=== PATIENT | male | born 1940 | race Caucasian/White ===

== ENCOUNTER 2018-07-02 07:34 | Day surgery (SDC) | payer OTHER, BC ==
[2018-07-01 15:25] VITALS: BMI 26.5
[2018-07-02 09:23] VITALS: TEMP 96.8
[2018-07-02 13:33] VITALS: BP 116/60; PULSE 64
--- NOTE | 2018-07-03 12:19 | PATH ---
Surgical Pathology Report Patient Name: RAYNA DE LA TORRE [facility]. Rec. #: [id number] /Age/Gender: 1940 (Age: 77) / M Account: [id number] Location: [facility]-ENDOSCOPY Taken: 07/02/2018 Received: 07/02/2018 Reported: 07/03/2018 Physicians: Gurpreet Eng M.D. Specimen(s) Received A: BODY B: IRREGULAR Z-LINE C: DISTAL SIGMOID D: MID SIGMOID Clinical History Iron deficiency anemia. Post-operative diagnosis: Irregular Z line, colon, polyps Final Diagnosis A. BODY, BIOPSY: GASTRIC MUCOSA WITH ACTIVE CHRONIC GASTRITIS. IMMUNOSTAIN FOR H. PYLORI IS POSITIVE. NEGATIVE FOR INTESTINAL METAPLASIA. B. IRREGULAR Z- LINE, BIOPSY: GASTROESOPHAGEAL JUNCTIONAL MUCOSA WITH REFLUX ESOPHAGITIS. NEGATIVE FOR INTESTINAL METAPLASIA. C. DISTAL SIGMOID POLYP, POLYPECTOMY: TUBULOVILLOUS ADENOMA. D. MID SIGMOID POLYP, POLYPECTOMY: TUBULOVILLOUS ADENOMA. Electronically Signed Adma Ernandez M.D. Gross Description A. Received in formalin, labeled "body erythema" are two pieces of light moon soft tissue each up to 0.3 cm in greatest dimension. Entirely submitted in one cassette. B. Received in formalin, labeled "irregular Z line" is one piece of light moon tissue measuring 0.6 cm in greatest dimension. Entirely submitted in one cassette. C. Received in formalin, labeled "polyp, distal sigmoid" is a 0.5 x 0.4 x 2.2 cm dark moon polyp. The resection margin is inked blue. The polyp is bisected and entirely submitted in one cassette. D. Received in formalin, labeled "polyp mid sigmoid" is a 1.2 x 0.8 x 0.4 cm brown moon polyp. The resection margin is inked blue. The polyp is bisected and entirely submitted in one cassette. AE/07/02/2018 ebram/07/02/2018
== END 2018-07-02 10:08 | disposition home or self-care (01) ==
LOC: JASU-ENDO 07:34
PROVIDERS: ATTEND Internal Medicine Gastroenterology
PROC: 0DB58ZX Excision of Esophagus, Via Natural or Artificial Opening Endoscopic, Diagnostic (ICD-10-PCS; 2018-07-02)
PROC: 0DB68ZX Excision of Stomach, Via Natural or Artificial Opening Endoscopic, Diagnostic (ICD-10-PCS; 2018-07-02)
PROC: 0DBN8ZX Excision of Sigmoid Colon, Via Natural or Artificial Opening Endoscopic, Diagnostic (ICD-10-PCS; principal; 2018-07-02 09:30)
DX: D50.9 Iron deficiency anemia, unspecified (principal); D12.5 Benign neoplasm of sigmoid colon; K64.8 Other hemorrhoids
CPT/HCPCS: 88305-TC; 88342-TC

== ENCOUNTER 2018-07-06 02:11 | Inpatient (IN) | payer OTHER, BC ==
--- NOTE | 2018-07-06 02:38 | PDOC ---
History of Present Illness - General Chief Complaint: Rectal Bleed Stated Complaint: BLOOD IN STOOL Time Seen by Provider: 07/06/18 02:37 - History of Present Illness Initial Comments: 07/06/18 02:49 Mr. Brown is a 77 yo male w/ pmh of heart valve repair (unsure of which, on Xarelto), HTN, HLD, endoscopy and colonoscopy on (07/02) for investigation of anemia who presents for evaluation of blood mixed in with stool as well as on toilet paper earlier this morning. Patient reports he has no complaints at this time however thought he should get checked out. Stool otherwise normal. Denies other complaints at this time. The patient denies chest pain, shortness of breath, headache and dizziness. Denies fever, chills, nausea, vomit, diarrhea and constipation. Denies dysuria, frequency, urgency and hematuria. Past History - Past Medical History Allergies/Adverse Reactions: Allergies Allergy/AdvReac Type Severity Reaction Status Date / Time No Known Allergies Allergy Verified 10/17/17 14:55 Home Medications: Ambulatory Orders Amlodipine Besylate/Benazepril [Lotrel 5-10 mg Capsule] 1 each PO DAILY Atorvastatin Ca [Lipitor] 40 mg PO HS 10/17/17 Furosemide [Lasix -] 20 mg PO ASDIR 10/17/17 Potassium Chloride [Klor-Con M20] 20 meq PO ASDIR 10/17/17 Rivaroxaban [Xarelto -] 20 mg PO DAILY 10/17/17 Metoprolol Succinate 100 mg PO DAILY 07/01/18 Cardiac Disorders: Yes (atrial flutter, angina, afib) COPD: No HTN: Yes Hypercholesterolemia: Yes - Surgical History Abdominal Surgery: Yes (inguinal and umbilical hernia repair) Cardiac Surgery: Yes (aortic valve repl, cabs, stents) - Suicide/Smoking/Psychosocial Hx Smoking History: Unknown if ever smoked Have you smoked in the past 12 months: No If you are a former smoker, when did you quit?: 40 years ago Hx Alcohol Use: Yes (GLASS WINE AT [employer]) Drug/Substance Use Hx: No Substance Use Type: None Hx Substance Use Treatment: No Review of Systems - Review of Systems Comments:: 07/06/18 02:54 GENERAL/CONSTITUTIONAL: No fever or chills. No weakness. HEAD, EYES, EARS, NOSE AND THROAT: No change in vision. No ear pain or discharge. No sore throat. CARDIOVASCULAR: No chest pain or shortness of breath RESPIRATORY: No cough, wheezing, or hemoptysis. GASTROINTESTINAL: +Blood in stool as described. No nausea, vomiting, diarrhea or constipation. GENITOURINARY: No dysuria, frequency, or change in urination. MUSCULOSKELETAL: No joint or muscle swelling or pain. No neck or back pain. SKIN: No rash NEUROLOGIC: No headache, vertigo, loss of consciousness, or change in strength/ sensation. ENDOCRINE: No increased thirst. No abnormal weight change HEMATOLOGIC/LYMPHATIC: No anemia, easy bleeding, or history of blood clots. ALLERGIC/IMMUNOLOGIC: No hives or skin allergy. *Physical Exam - Vital Signs Last Vital Signs Temp Pulse Resp BP Pulse Ox 97.5 F L 81 18 168/78 100 07/06/18 02:15 07/06/18 02:15 07/06/18 02:15 07/06/18 02:15 07/06/18 02:15 - Physical Exam Comments: 07/06/18 02:55 GENERAL: Awake, alert, and fully oriented, in no acute distress HEAD: No signs of trauma, normocephalic, atraumatic EYES: PERRLA, EOMI, sclera anicteric, conjunctiva clear ENT: Auricles normal inspection, hearing grossly normal, nares patent, oropharynx clear without exudates. Moist mucosa NECK: Normal ROM, supple, no lymphadenopathy, JVD, or masses LUNGS: No distress, speaks full sentences, clear to auscultation bilaterally HEART: Regular rate and rhythm, normal S1 and S2, no murmurs, rubs or gallops, peripheral pulses normal and equal bilaterally. ABDOMEN: Soft, nontender, normoactive bowel sounds. No guarding, no rebound. No masses EXTREMITIES: Normal inspection, Normal range of motion, no edema. No clubbing or cyanosis. NEUROLOGICAL: Cranial nerves II through XII grossly intact. Normal speech, normal gait, no focal sensorimotor deficits SKIN: Warm, Dry, normal turgor, no rashes or lesions noted. RECTAL: +Blood noted on glove during examination. No hemorrhoids, no pain on exam. ED Treatment Course - LABORATORY CBC & Chemistry Diagram: 07/06/18 03:43 07/06/18 03:43 Medical Decision Making - Medical Decision Making 07/06/18 04:30 Mr. Brown is a 77 yo male w/ pmh as described who presents for evaluation of symptoms concerning for lower vs. upper GI bleed vs. hemorrhoids. Patient evaluated with labs as below with findings significant for positive FOB w/ additional mild anemia. Patient otherwise well appearing w/ no complaints. Patient will be admitted for further GI evaluation. Laboratory Results - last 24 hr 07/06/18 07/06/18 07/06/18 02:51 03:43 03:43 WBC 6.4 RBC 3.95 L Hgb 10.9 L Hct 34.1 L MCV 86.2 MCH 27.5 MCHC 31.9 L RDW 16.3 H Plt Count 185 MPV 7.6 Absolute Neuts (auto) 4.5 Neutrophils % 70.7 Lymphocytes % 14.7 Monocytes % 10.6 H Eosinophils % 3.3 Basophils % 0.7 Nucleated RBC % 0 Retic Count 0.82 PT with INR 42.80 H INR 3.58 H Sodium Potassium Chloride Carbon Dioxide Anion Gap BUN Creatinine Est GFR (CKD-EPI)AfAm Est GFR (CKD-EPI)NonAf Random Glucose Calcium Total Bilirubin AST ALT Alkaline Phosphatase Total Protein Albumin Stool Occult Blood Positive 07/06/18 03:43 WBC RBC Hgb Hct MCV MCH MCHC RDW Plt Count MPV Absolute Neuts (auto) Neutrophils % Lymphocytes % Monocytes % Eosinophils % Basophils % Nucleated RBC % Retic Count PT with INR INR Sodium 137 Potassium 4.3 Chloride 106 Carbon Dioxide 26 Anion Gap 5 L BUN 21 H Creatinine 1.1 Est GFR (CKD-EPI)AfAm 75.18 Est GFR (CKD-EPI)NonAf 64.86 Random Glucose 90 Calcium 8.0 L Total Bilirubin 0.4 AST 30 ALT 20 Alkaline Phosphatase 104 Total Protein 7.8 Albumin 3.2 L Stool Occult Blood *DC/Admit/Observation/Transfer Diagnosis at time of Disposition: GI bleed Qualifiers: GI bleed type/associated pathology: unspecified gastrointestinal hemorrhage type Qualified Code(s): K92.2 - Gastrointestinal hemorrhage, unspecified - Discharge Dispostion Decision to Admit order: Yes - Referrals Referrals: Kg Mccain MD [Primary Care Provider] - - Patient Instructions - Post Discharge Activity
[2018-07-06 03:57] LABS: BASO % 0.7 % (0-2.0); EOS % 3.3 % (0-4.5); HEMATOCRIT 34.1 % (35.4-49); HEMOGLOBIN 10.9 GM/dL (11.7-16.9); LYMPH % 14.7 % (8-40); MCH 27.5 pg (25.7-33.7); MCHC 31.9 g/dl (32.0-35.9); MEAN CELL VOLUME 86.2 fl (80-96); MEAN PLT VOLUME 7.6 fl (7.5-11.1); MONO % 10.6 % (3.8-10.2); NEUT % 70.7 % (42.8-82.8); PLATELET COUNT 185 K/MM3 (134-434); RBC 3.95 M/mm3 (4.00-5.60); RDW 16.3 % (11.9-15.9); RETICULOCYTES 0.82 % (0.5-1.5); WHITE BLOOD COUNT 6.4 K/mm3 (4.0-10.0)
[2018-07-06 04:18] LABS: INR 3.58 (0.83-1.09); PROTHROMBIN TIME (PATIENT) 42.8 SEC (9.7-13.0)
[2018-07-06] MEDS ORDERED: PANTOPRAZOLE SODIUM 40 MG VIAL IVPUSH ONE (04:22)
[2018-07-06 04:26] LABS: ALBUMIN 3.2 g/dl (3.4-5.0); BILIRUBIN,TOTAL 0.4 mg/dL (0.2-1); CREATININE 1.1 mg/dL (0.55-1.3); POTASSIUM 4.3 mmol/L (3.5-5.1); TOT PROT 7.8 g/dl (6.4-8.2)
--- NOTE | 2018-07-06 04:41 | PDOC ---
Attending Attestation - Resident Resident Name: Chepe Morton - ED Attending Attestation I have performed the following: I have examined & evaluated the patient, The case was reviewed & discussed with the resident, I agree w/resident's findings & plan, Exceptions are as noted - HPI HPI: 07/06/18 04:37 77 yo M with h/o valve repair, htn hld on xarelto here s/p colonoscopy 4 days ago s/p polyp clipping, here with c/o gi bleed. pt noted bright red blood per rectum yesterday, and today with stoo.. no bleeding between stools. was having colonoscopy for anemia workup. denies feeing fatigued, sob, or chest pain. no h/ o prior gi bleed. no abd pain. - Physicial Exam PE: 07/06/18 04:38 awake alert lungs clear ctab. no wheeze no crackles heart rrr no mrg abd soft nt nd ext wwp. rectal per dr morton bright red blood , ext wwp no edema. no calf tenderness. nuero alert oriented x 3. - Medical Decision Making 07/06/18 04:39 77 yo male h/o valve replacement htn hld on blood thinner here with gi bleed s/ p polyp clip ( dr parra) differential bleeding polyp, anemia, diverticular bleed, no pain to suggest colitis. franklin labs ivf , will page dr parra. due to fact recent procedure and on xarelto, will require admission for observation and serial labs. 07/06/18 04:46 hgb 10.9 pt inr 3.65 elevated . will admit for serial hgb. juan page dr. parra. d/w dr wu for admission. pt pcp dr rod. Heart Score/ECG Review #1 General ECG Interpretation: Sinus Rhythm, Normal Rate (62), Normal Intervals Compared to previous ECG there are: No significant change (ST depression TWI V4 - V6, I, AVL. no change comparison 10/21/17)
[2018-07-06] MEDS ORDERED: PHYTONADIONE 5 MG TABLET PO ONE (04:46)
--- NOTE | 2018-07-06 04:59 | PN ---
Teaching Attending Note Name of Resident: Lance Remy ATTENDING PHYSICIAN STATEMENT I saw and evaluated the patient. I reviewed the resident's note and discussed the case with the resident. I agree with the resident's findings and plan as documented. SUBJECTIVE: Thank you for allowing [facility] to take part in the ongoing management of your patient. Seen and examined; please see resident note for further historical information. Briefly, this is a 77 y/o male presenting with several episodes tonight of BRBPR; he denies any other symptoms including syncope, presyncope, CP, SOB, hemetemesis, or melena. He had a EGD and Colonoscopy several days ago; 2 polyps were removed and on the report there is noted that the 1.75cm polyp bled ; also was noted to have internal hemorrhoids. He is not having massive hematochezia and has not had any BM since he came to the ER. No free air on CXR and no abdominal pain. Rectal exam with some BRB on glove with normal stool. He is hemodynamically stable and afebrile. ER is calling Dr. Eng. He is on xarelto for a heart valve repair (he is unsure of details; documented on med bottles as following with Dr. Ang's group) and is found to have an elevated INR (denies ever being on warfarin) to >3 so was given 5 vitamin K in the ER. I don't have a baseline hemoglobin, etc. for this patient. We asked family multiple times, but they denied knowing specific medical problems but did have all medications which were confirmed. 10 sys ROS done and negative aside from HPI PMH, PSH, FH, SH reviewed Home Medications Medication Instructions Recorded Amlodipine Besylate/Benazepril 1 each PO DAILY 10/17/17 [Lotrel 5-10 mg Capsule] Atorvastatin Ca [Lipitor] 40 mg PO HS 10/17/17 Furosemide [Lasix -] 20 mg PO ASDIR 10/17/17 Potassium Chloride [Klor-Con M20] 20 meq PO ASDIR 10/17/17 Rivaroxaban [Xarelto -] 20 mg PO DAILY 10/17/17 Metoprolol Succinate 100 mg PO DAILY 07/01/18 OBJECTIVE: VS, labs, imaging reviewed NAD, AAO, resting comfortably in bed NC AT EOMI PERRLA RRR s1/2 no mgr NT ND +BS Lungs CTAB, w/ sym exp CN2-12 wnl, no fnd Normal mood, appropriate behavior CXR personally reviewed; no free air ASSESSMENT AND PLAN: Patient presents with BRBPR after having colonoscopy with polypectomy [address] Eng 1) BRBPR -Post procedural bleed with stable VS; getting type and screen. Trend CBC BID; obtain OP records to obtain baseline Hb. Mention of bleeding polyp in endoscopy report noted -Holding AM dose xarelto until discussed with GI/CV; would be helpful to obtain OP records. Resume when OK with GI -Type and crossed -Monitor for any further bleeding; none noted at this juncture 2) Valve repair -On xarelto; denies warfarin use; confirm meds with pharmacy and obtain OP records. 3) Supratherapeutic INR -On xarelto; relationship noted. Given vitamin K in ER; followup coags 4) Hx HLD -Continue statin 5) Hx HTN -Continue Amlodipine/Benzapril 6) Afib s/p Cardioversion, on xarelto -Continue xarelto, continue metoprolol. Old med list from 2018 shows he was on amiodarone but this was not with his current med list. -Obtain OP records and confirm Full Code
--- NOTE | 2018-07-06 05:02 | HP ---
CHIEF COMPLAINT: rectal bleeding PCP: Dr. Mccain HISTORY OF PRESENT ILLNESS: Patient is a 77 yo M with a PMHx of heart valve repair (on Xarelto, unknown which valve), HTN, HLD, presents today with complaints of several episodes of BRBPR, that started at 10:30pm yesterday. Patient says he had 2 episodes of rectal bleeding which prompted him to go to the ED. He had an EGD and colonoscopy on 07/02 which 2 polyps were removed. Report showed: Sessile polyp 0.75cm found in sigmoid colon, polypectomy was performed. Also a pedunculated polyp 1.75cm found in the proximal colon. BLEEDING. Polypectomy was performed using snare cautery. And internal hemorrhoids. The wound at the site was closed. Patient said he had a colonoscopy because of an anemia workup. No free air on CXR and no abdominal pain. Rectal exam in the ER showed some bright red blood on glove with normal stool. Patient is on Xarelto for a heart valve repair. Patient and do not know which valve was repaired. He was found to have a supratheraputic INR of 3.58 and given 5mg of K in the ED. Patient denies symptoms, including sob, dizziness, nausea, vomiting, syncope, hematemesis, melena fevers, chest pain, headaches, urinary changes, cough. Recent Travel: denies PAST MEDICAL HISTORY: denies PAST SURGICAL HISTORY: abd hernia repair Social History: Smoking: denies Alcohol: denies Drugs: denies Allergies No Known Allergies Allergy (Verified 10/17/17 14:55) HOME MEDICATIONS: Home Medications Medication Instructions Recorded Amlodipine Besylate/Benazepril 1 each PO DAILY 10/17/17 [Lotrel 5-10 mg Capsule] Atorvastatin Ca [Lipitor] 40 mg PO HS 10/17/17 Furosemide [Lasix -] 20 mg PO ASDIR 10/17/17 Potassium Chloride [Klor-Con M20] 20 meq PO ASDIR 10/17/17 Rivaroxaban [Xarelto -] 20 mg PO DAILY 10/17/17 Metoprolol Succinate 100 mg PO DAILY 07/01/18 REVIEW OF SYSTEMS CONSTITUTIONAL: Absent: fever, chills, diaphoresis, generalized weakness, malaise, loss of appetite, weight change HEENT: Absent: rhinorrhea, nasal congestion, throat pain, throat swelling, difficulty swallowing, mouth swelling, ear pain, eye pain, visual changes CARDIOVASCULAR: Absent: chest pain, syncope, palpitations, irregular heart rate, lightheadedness , peripheral edema RESPIRATORY: Absent: cough, shortness of breath, dyspnea with exertion, orthopnea, wheezing, stridor, hemoptysis GASTROINTESTINAL: hematochezia Absent: abdominal pain, abdominal distension, nausea, vomiting, diarrhea, constipation, melena GENITOURINARY: Absent: dysuria, frequency, urgency, hesitancy, hematuria, flank pain, genital pain MUSCULOSKELETAL: Absent: myalgia, arthralgia, joint swelling, back pain, neck pain SKIN: Absent: rash, itching, pallor HEMATOLOGIC/IMMUNOLOGIC: Absent: easy bleeding, easy bruising, lymphadenopathy, frequent infections ENDOCRINE: Absent: unexplained weight gain, unexplained weight loss, heat intolerance, cold intolerance NEUROLOGIC: Absent: headache, focal weakness or paresthesias, dizziness, unsteady gait, seizure, mental status changes, bladder or bowel incontinence PSYCHIATRIC: Absent: anxiety, depression, suicidal or homicidal ideation, hallucinations. PHYSICAL EXAMINATION Vital Signs - 24 hr 07/06/18 02:15 Temperature 97.5 F L Pulse Rate 81 Respiratory 18 Rate Blood Pressure 168/78 O2 Sat by Pulse 100 Oximetry (%) GENERAL: a/o x3, in NAD HEAD: Normal with no signs of trauma. EYES: Pupils equal, round and reactive to light, extraocular movements intact, sclera anicteric, conjunctiva clear EARS, NOSE, THROAT: Ears normal, nares patent, oropharynx clear without exudates. Moist mucous membranes. NECK: Normal range of motion, supple without lymphadenopathy, JVD, or masses. LUNGS: Breath sounds equal, clear to auscultation bilaterally. No wheezes, and no crackles. No accessory muscle use. HEART: Regular rate and rhythm, normal S1 and S2 without murmur, rub or gallop. ABDOMEN: Soft, nontender, not distended, normoactive bowel sounds, no guarding, no rebound, no masses. Abd hernia. MUSCULOSKELETAL: Normal range of motion at all joints. No bony deformities or tenderness. LOWER EXTREMITIES: 2+ pulses, warm, well-perfused. No calf tenderness. No peripheral edema. NEUROLOGICAL: Cranial nerves II-XII intact. Normal speech. Normal gait. PSYCHIATRIC: Cooperative. Good eye contact. Appropriate mood and affect. Laboratory Results - last 24 hr 07/06/18 07/06/18 07/06/18 02:51 03:43 03:43 WBC 6.4 RBC 3.95 L Hgb 10.9 L Hct 34.1 L MCV 86.2 MCH 27.5 MCHC 31.9 L RDW 16.3 H Plt Count 185 MPV 7.6 Absolute Neuts (auto) 4.5 Neutrophils % 70.7 Lymphocytes % 14.7 Monocytes % 10.6 H Eosinophils % 3.3 Basophils % 0.7 Nucleated RBC % 0 Retic Count 0.82 PT with INR 42.80 H INR 3.58 H Sodium Potassium Chloride Carbon Dioxide Anion Gap BUN Creatinine Est GFR (CKD-EPI)AfAm Est GFR (CKD-EPI)NonAf Random Glucose Calcium Total Bilirubin AST ALT Alkaline Phosphatase Total Protein Albumin Stool Occult Blood Positive 07/06/18 03:43 WBC RBC Hgb Hct MCV MCH MCHC RDW Plt Count MPV Absolute Neuts (auto) Neutrophils % Lymphocytes % Monocytes % Eosinophils % Basophils % Nucleated RBC % Retic Count PT with INR INR Sodium 137 Potassium 4.3 Chloride 106 Carbon Dioxide 26 Anion Gap 5 L BUN 21 H Creatinine 1.1 Est GFR (CKD-EPI)AfAm 75.18 Est GFR (CKD-EPI)NonAf 64.86 Random Glucose 90 Calcium 8.0 L Total Bilirubin 0.4 AST 30 ALT 20 Alkaline Phosphatase 104 Total Protein 7.8 Albumin 3.2 L Stool Occult Blood ASSESSMENT/PLAN: 77 yo M with a PMHx of heart valve repair (on Xarelto, unknown which valve), HTN , HLD, presents today with complaints of several episodes of BRBPR. #Post-Procedural Rectal bleed -Hgb 10.9. Unknown baseline but patient underwent EGD/Colonoscopy because of Anemia -FU repeat CBC -IV Fluids NS @ 50 -Xarelto held for now for possible procedure later today. Restart pending GI consult. -GI consulted: Dr Eng (patient GI) -NPO #Supratherapeutic INR -3.58 INR -Xarelto held pending GI consult -repeat PT/INR in AM -Cardio consult because patient is bleeding, on xarelto, with supratherapeutic INR. Dr. Ang consulted. #Afib s/p Cardioversion, on xarelto -held xarelto pending Gi -continue metoprolol #HLD -Continue statin #HTN -Continue Amlodipine/Benzapril #FEN -Iv fluids NS @ 50 -Monitor -NPO dispo: obs Visit type - Emergency Visit Emergency Visit: Yes Care time: The patient presented to the Emergency Department on the above date and was hospitalized for further evaluation of their emergent condition. - New Patient This patient is new to me today: Yes Date on this admission: 07/06/18 - Critical Care Critical Care patient: No
[2018-07-06] MEDS: LACTATED RINGERS SOLUTION 1,000 ML IV SCH (06:17)
--- NOTE | 2018-07-06 08:53 | CON.GI ---
Consult Consult Specialty:: GI Referred by:: Dr Remy Reason for Consultation:: post-procedural bleeding - History of Present Illness History of Present Illness: Patient is a 70 y/o male with past medical history of Heart Valve Repair (on Xarelto), HTN, HLD. Patient presented to ER with 2 episodes of BRBPR at home. Patient also experienced 1 episode of BRBPR while in ER. He underwent EGD and colonoscopy with polypectomy x 2 with snare cautery. Stool OB in ER positive. Current Hg 10.9. Patient denies dysphagia, nausea, vomiting, abdominal pain, rectal pain or melena. - History Source History Provided By: Patient Limitations to Obtaining History: No Limitations - Past Medical History Cardio/Vascular: Yes: HTN, Hyperlipdemia, Other (Heart Valve Repair) Gastrointestinal: Yes: Other (Rectal bleed) - Past Surgical History Past Surgical History: Yes: Valve Replacement - Alcohol/Substance Use Hx Alcohol Use: Yes (GLASS WINE AT [employer]) - Smoking History Smoking history: Unknown if ever smoked Have you smoked in the past 12 months: No If you are a former smoker, when did you quit?: 40 years ago - Social History Usual Living Arrangement: With Spouse ADL: Independent History of Recent Travel: No Home Medications - Allergies Allergies/Adverse Reactions: Allergies Allergy/AdvReac Type Severity Reaction Status Date / Time No Known Allergies Allergy Verified 10/17/17 14:55 - Home Medications Home Medications: Ambulatory Orders Amlodipine Besylate/Benazepril [Lotrel 5-10 mg Capsule] 1 each PO DAILY Atorvastatin Ca [Lipitor] 40 mg PO HS 10/17/17 Furosemide [Lasix -] 20 mg PO ASDIR 10/17/17 Potassium Chloride [Klor-Con M20] 20 meq PO ASDIR 10/17/17 Rivaroxaban [Xarelto -] 20 mg PO DAILY 10/17/17 Metoprolol Succinate 100 mg PO DAILY 07/01/18 Review of Systems - Review of Systems Constitutional: reports: No Symptoms Eyes: reports: No Symptoms HENT: reports: No Symptoms Neck: reports: No Symptoms Cardiovascular: reports: No Symptoms Respiratory: reports: No Symptoms Gastrointestinal: reports: Rectal Bleeding Genitourinary: reports: No Symptoms Breasts: reports: No Symptoms Reported Musculoskeletal: reports: No Symptoms Integumentary: reports: No Symptoms Neurological: reports: No Symptoms Endocrine: reports: No Symptoms Hematology/Lymphatic: reports: No Symptoms Psychiatric: reports: No Symptoms Physical Exam-GI Vital Signs: Vital Signs Temperature 97.5 F L 07/06/18 02:15 Pulse Rate 88 07/06/18 07:22 Respiratory Rate 16 07/06/18 07:22 Blood Pressure 166/76 07/06/18 07:22 O2 Sat by Pulse Oximetry (%) 100 07/06/18 02:15 Constitutional: Yes: Well Nourished, No Distress, Calm Eyes: Yes: Conjunctiva Clear HENT: Yes: Atraumatic Cardiovascular: Yes: Regular Rate and Rhythm Respiratory: Yes: Regular, CTA Bilaterally Gastrointestinal Inspection: Yes: WNL. No: Ascites, Distention, Hernia, Scars, Other ...Auscultate: Yes: Normoactive Bowel Sounds. No: Hyperactive Bowel Sounds, Hypoactive Bowel Sounds, No Bowel Sounds, Other ...Palpate: Yes: Soft. No: Firm/Rigid, Guarding, Hepatomegaly, Mass, Pulsatile Mass, Splenomegaly, Tenderness, Tenderness, Epigastium, Tenderness, Rebound, Other ...Percussion: Yes: Tympanitic. No: Dullness, Fluid Wave, Other ...Rectal Exam: Yes: Guaiac Positive Neurological: Yes: Alert, Oriented Psychiatric: Yes: Alert, Oriented Labs: CBC, BMP 07/06/18 03:43 07/06/18 03:43 INR, PTT INR 3.58 (0.83-1.09) H 07/06/18 03:43 Problem List - Problems (1) GI bleed Assessment/Plan: post polypectomy bleeding while on Xarelto R>secondary to post procedure >monitor Hg daily >transfuse for Hg <8.0 >continue IV hydration Code(s): K92.2 - GASTROINTESTINAL HEMORRHAGE, UNSPECIFIED Qualifiers: GI bleed type/associated pathology: unspecified gastrointestinal hemorrhage type Qualified Code(s): K92.2 - Gastrointestinal hemorrhage, unspecified
[2018-07-06 08:58] VITALS: BMI 27.3
[2018-07-06] MEDS ORDERED: FUROSEMIDE 20 MG TABLET (FP) PO SCH (10:00)
[2018-07-06] MEDS ORDERED: POTASSIUM CHLORIDE TABS 20 MEQ TABLET.ER (FP) PO SCH (10:00)
[2018-07-06] MEDS ORDERED: PATIENT'S OWN MEDICATION (NON-FORMULARY) (Amlodipine Besylate/Benazepril [Lotrel 5-10 Mg C PO SCH (10:00)
--- NOTE | 2018-07-06 10:00 | CON.CARD ---
Consult Consult Specialty:: Cardiology Referred by:: Teresa Mahoney MD Reason for Consultation:: Cardiac evaluation - History of Present Illness Chief Complaint: Rectal bleed History of Present Illness: Patient is a 77 year old male known to our service (sees Dr. Kate Ang) with underlying history of CAD post CABG (SVG to LAD-D1), angina pectoris, diastolic LV dysfunction with chronic class 0-1 NYHA classification failure, PAF , [id number] score of 5 on DOAC (Xarelto), post AVR (bioprosthesis, 27 mm [place] INSPIR[employer] RESILIA Pericardial valve, 2018), LA appendage ligation, pulmonary vein isolation, HTN, hypercholesterolemia, hiatal hernia, GERD and nephrolithiasis who presents with rectal bleed. He had colonoscopy with Dr. Gurpreet Eng last and had sessile polys removed from sigmoid colon. Xarelto was stopped 48 hours prior to procedure and was restarted on the same day as the procedure. Bleeding occurred 2 days post intervention which prompted him to come into ER. Currently, he denies chest pain, SOB or palpitations. He denies paroxysmal nocturnal dyspnea or orthopnea. He denies fever or chills. He denies nausea, vomiting, diarrhea or abdominal pain. He denies headache or lightheadedness. - History Source History Provided By: Patient, Family Member, Medical Record - Past Medical History Cardio/Vascular: Yes: AFIB, Aortic Stenosis, CAD, CHF, HTN, Hyperlipdemia, Other (AVR (bioprosthesis)) Gastrointestinal: Yes: GERD, GI Bleed, Hiatal Hernia, Other (Rectal bleed) - Past Surgical History Past Surgical History: Yes: CABG, Valve Replacement - Alcohol/Substance Use Hx Alcohol Use: Yes (GLASS [employer] AT [employer]) - Smoking History Smoking history: Former smoker Have you smoked in the past 12 months: No If you are a former smoker, when did you quit?: 40 years ago - Social History Usual Living Arrangement: With Spouse ADL: Independent History of Recent Travel: No Home Medications - Allergies Allergies/Adverse Reactions: Allergies Allergy/AdvReac Type Severity Reaction Status Date / Time No Known Allergies Allergy Verified 10/17/17 14:55 - Home Medications Home Medications: Ambulatory Orders Amlodipine Besylate/Benazepril [Lotrel 5-10 mg Capsule] 1 each PO DAILY Atorvastatin Ca [Lipitor] 40 mg PO HS 10/17/17 Furosemide [Lasix -] 20 mg PO ASDIR 10/17/17 Potassium Chloride [Klor-Con M20] 20 meq PO ASDIR 10/17/17 Rivaroxaban [Xarelto -] 20 mg PO DAILY 10/17/17 Metoprolol Succinate 100 mg PO DAILY 07/01/18 Family Disease History - Family Disease History Family Disease History: Heart Disease: Father, Brother Review of Systems - Review of Systems Constitutional: denies: Chills, Fever Cardiovascular: denies: Chest Pain, Palpitations Respiratory: denies: Cough, Hemoptysis, Orthopnea, PND, SOB, SOB on Exertion, Wheezing Gastrointestinal: reports: Rectal Bleeding. denies: Abdominal Pain, Constipation, Diarrhea, Melena, Nausea, Vomiting Genitourinary: denies: Dysuria, Hematuria Musculoskeletal: denies: Back Pain, Joint Pain Neurological: denies: Dizziness, Headache, Seizure, Syncope Vital Signs: Vital Signs Temperature 98.7 F 07/06/18 08:47 Pulse Rate 71 07/06/18 08:47 Respiratory Rate 20 07/06/18 08:47 Blood Pressure 151/73 07/06/18 08:47 O2 Sat by Pulse Oximetry (%) 100 07/06/18 02:15 Eyes: Yes: PERRL HENT: Yes: Atraumatic Neck: Yes: Supple Respiratory: Yes: Regular, CTA Bilaterally Gastrointestinal: Yes: Normal Bowel Sounds, Soft. No: Tenderness Cardiovascular: Yes: Regular Rate and Rhythm JVD: No PMI: Non-Displaced Heart Sounds: Yes: S1, S2. No: Gallop Murmur: Yes: Systolic Murmur, Grade 1 Edema: No - Other Data Labs, Other Data: CBC, BMP 07/06/18 03:43 07/06/18 03:43 INR, PTT INR 3.58 (0.83-1.09) H 07/06/18 03:43 Laboratory Results - last 24 hr 07/06/18 07/06/18 07/06/18 02:51 03:43 03:43 WBC 6.4 RBC 3.95 L Hgb 10.9 L Hct 34.1 L MCV 86.2 MCH 27.5 MCHC 31.9 L RDW 16.3 H Plt Count 185 MPV 7.6 Absolute Neuts (auto) 4.5 Neutrophils % 70.7 Lymphocytes % 14.7 Monocytes % 10.6 H Eosinophils % 3.3 Basophils % 0.7 Nucleated RBC % 0 Retic Count 0.82 PT with INR 42.80 H INR 3.58 H Sodium Potassium Chloride Carbon Dioxide Anion Gap BUN Creatinine Est GFR (CKD-EPI)AfAm Est GFR (CKD-EPI)NonAf Random Glucose Calcium Total Bilirubin AST ALT Alkaline Phosphatase Total Protein Albumin Stool Occult Blood Positive Blood Type Antibody Screen 07/06/18 07/06/18 07/06/18 03:43 03:43 09:07 WBC RBC Hgb Hct MCV MCH MCHC RDW Plt Count MPV Absolute Neuts (auto) Neutrophils % Lymphocytes % Monocytes % Eosinophils % Basophils % Nucleated RBC % Retic Count PT with INR INR Sodium 137 Potassium 4.3 Chloride 106 Carbon Dioxide 26 Anion Gap 5 L BUN 21 H Creatinine 1.1 Est GFR (CKD-EPI)AfAm 75.18 Est GFR (CKD-EPI)NonAf 64.86 Random Glucose 90 Calcium 8.0 L Total Bilirubin 0.4 AST 30 ALT 20 Alkaline Phosphatase 104 Total Protein 7.8 Albumin 3.2 L Stool Occult Blood Blood Type O POSITIVE O POSITIVE Antibody Screen Negative 07/06/18 07/06/18 12:00 12:00 WBC 6.5 RBC 3.95 L Hgb 11.0 L Hct 33.8 L MCV 85.5 MCH 27.8 MCHC 32.5 RDW 16.4 H Plt Count 190 MPV 7.8 Absolute Neuts (auto) 4.8 Neutrophils % 73.4 Lymphocytes % 16.1 Monocytes % 8.3 Eosinophils % 1.6 Basophils % 0.6 Nucleated RBC % 0 Retic Count PT with INR 25.40 H INR 2.14 H Sodium Potassium Chloride Carbon Dioxide Anion Gap BUN Creatinine Est GFR (CKD-EPI)AfAm Est GFR (CKD-EPI)NonAf Random Glucose Calcium Total Bilirubin AST ALT Alkaline Phosphatase Total Protein Albumin Stool Occult Blood Blood Type Antibody Screen NSR, LVH Problem List - Problems (1) CAD (coronary artery disease) Code(s): I25.10 - ATHSCL HEART DISEASE OF [place] CORONARY ARTERY W/O ANG PCTRS (2) Hx of CABG Code(s): Z95.1 - PRESENCE OF AORTOCORONARY BYPASS GRAFT (3) S/P AVR (aortic valve replacement) Code(s): Z95.2 - PRESENCE OF PROSTHETIC HEART VALVE (4) S/P left atrial appendage ligation Code(s): Z98.890 - OTHER SPECIFIED POSTPROCEDURAL STATES (5) Aortic valve stenosis Code(s): I35.0 - NONRHEUMATIC AORTIC (VALVE) STENOSIS (6) Atrial fibrillation Code(s): I48.91 - UNSPECIFIED ATRIAL FIBRILLATION (7) HTN (hypertension) Code(s): I10 - ESSENTIAL (PRIMARY) HYPERTENSION Qualifiers: Hypertension type: essential hypertension Qualified Code(s): I10 - Essential (primary) hypertension (8) Hypercholesterolemia Code(s): E78.00 - PURE HYPERCHOLESTEROLEMIA, UNSPECIFIED (9) GERD (gastroesophageal reflux disease) Code(s): K21.9 - GASTRO-ESOPHAGEAL REFLUX DISEASE WITHOUT ESOPHAGITIS (10) Hiatal hernia Code(s): K44.9 - DIAPHRAGMATIC HERNIA WITHOUT OBSTRUCTION OR GANGRENE (11) GI bleed Code(s): K92.2 - GASTROINTESTINAL HEMORRHAGE, UNSPECIFIED Qualifiers: GI bleed type/associated pathology: unspecified gastrointestinal hemorrhage type Qualified Code(s): K92.2 - Gastrointestinal hemorrhage, unspecified Assessment/Plan 1. Rectal bleed post polypectomy 2. CAD, CABG, angina pectoris 3. HTN 4. Hypercholesterolemia 5. PAF [id number] score of 5 on DOAC (Xarelto) 6. Aortic valve disease s/p AVR (bioprosthesis), LA appendage ligation 7. GERD and hiatal hernia PLAN: 1. Continue Metoprolol, Prinivil and Amlodipine 2. Atorvastatin 3. Xarelto has been held, but to be restarted once GI bleeding is stopped and homeostasis is achieved. Other option is to switch to Eliquis 5 mg BID 4. GI input to follow 5. To review office medical records Further plans are to follow Phuc Dillon MD
[2018-07-06] MEDS: LISINOPRIL 10 MG TABLET (FP) PO SCH (10:01)
[2018-07-06] MEDS: amLODIPine BESYLATE 5 MG TABLET (FP) PO SCH (10:01)
--- NOTE | 2018-07-06 10:38 | PN ---
Progress Note (short form) - Note Progress Note: pt seen/ examined chart reviewed awake/ comfortable denies pain Vital Signs Temp 98.7 F 07/06/18 08:47 Pulse 71 07/06/18 08:47 Resp 20 07/06/18 08:47 BP 151/73 07/06/18 08:47 Pulse Ox 100 07/06/18 02:15 Intake & Output 07/05/18 07/05/18 07/06/18 11:59 23:59 11:59 Weight 139 lb 11.2 oz Other: Voiding Method Toilet Height 5 ft Body Mass Index (BMI) 27.3 Weight Measurement Method [facility] Active Medications Amlodipine Besylate (Norvasc -) 5 mg PO DAILY [facility] Last Admin: 07/06/18 10:01 Dose: 5 mg Atorvastatin Calcium (Lipitor -) 40 mg PO [facility] Lactated Ringer's (Lactated Ringers Solution) 1,000 mls @ 50 mls/hr IV ASDIR [facility] Last Admin: 07/06/18 06:17 Dose: 50 mls/hr Lisinopril (Prinivil) 10 mg PO DAILY [facility] Last Admin: 07/06/18 10:01 Dose: 10 mg Metoprolol Succinate (Toprol Xl -) 100 mg PO DAILY [facility] Last Admin: 07/06/18 10:02 Dose: 100 mg CBC, BMP 07/06/18 03:43 07/06/18 03:43 INR, PTT INR 3.58 (0.83-1.09) H 07/06/18 03:43 Physical Examination Constitutional: Yes: No Distress, comfortable Eyes: Yes: Conjunctiva Clear Neck: Yes: Supple. no jvd Cardiovascular: Yes: Regular Rate and Rhythm Respiratory: Yes: CTA Bilaterally Gastrointestinal: Yes: Soft/ non tender Edema: No Neurological: Yes: Alert Psychiatric: Yes: Alert Assessment/Plan GI bleed s/p recent colonoscopy cad continue present care monitor h/h mild hydration for now hold lasix/ k for now cardiology consult Discussed with Dr. Velasquez Waller-- Says Dr. Eng will be following will follow
--- NOTE | 2018-07-06 11:01 | EKG ---
Test Reason : Blood Pressure : / mmHG Vent. Rate : 062 BPM Atrial Rate : 062 BPM P-R Int : 142 ms QRS Dur : 098 ms QT Int : 440 ms P-R-T Axes : 009 000 165 degrees QTc Int : 446 ms NORMAL SINUS RHYTHM LEFT VENTRICULAR HYPERTROPHY WITH REPOLARIZATION ABNORMALITY ABNORMAL ECG WHEN COMPARED WITH ECG OF 21-OCT-2017 08:32, NO SIGNIFICANT CHANGE WAS FOUND Confirmed by SRIDEVI HASTINGS MD ([id number]) on 07/06/2018 11:00:25 AM Referred By: Confirmed By:SRIDEVI HASTINGS MD
[2018-07-06 12:33] LABS: BASO % 0.6 % (0-2.0); EOS % 1.6 % (0-4.5); HEMATOCRIT 33.8 % (35.4-49); LYMPH % 16.1 % (8-40); MCH 27.8 pg (25.7-33.7); MCHC 32.5 g/dl (32.0-35.9); MEAN CELL VOLUME 85.5 fl (80-96); MEAN PLT VOLUME 7.8 fl (7.5-11.1); MONO % 8.3 % (3.8-10.2); NEUT % 73.4 % (42.8-82.8); PLATELET COUNT 190 K/MM3 (134-434); RBC 3.95 M/mm3 (4.00-5.60); RDW 16.4 % (11.9-15.9); WHITE BLOOD COUNT 6.5 K/mm3 (4.0-10.0)
[2018-07-06 12:41] LABS: INR 2.14 (0.83-1.09); PROTHROMBIN TIME (PATIENT) 25.4 SEC (9.7-13.0)
[2018-07-06 12:51] LABS: ALBUMIN 3.2 g/dl (3.4-5.0); BILIRUBIN,TOTAL 0.7 mg/dL (0.2-1); CALCIUM 8.5 mg/dL (8.5-10.1); MAGNESIUM 2.2 mg/dL (1.8-2.4); POTASSIUM 4.2 mmol/L (3.5-5.1); TOT PROT 7.7 g/dl (6.4-8.2)
[2018-07-06 16:21] LABS: HEMATOCRIT 33.5 % (35.4-49); HEMOGLOBIN 10.8 GM/dL (11.7-16.9); MCH 27.6 pg (25.7-33.7); MCHC 32.1 g/dl (32.0-35.9); MEAN CELL VOLUME 85.9 fl (80-96); MEAN PLT VOLUME 8.2 fl (7.5-11.1); PLATELET COUNT 194 K/MM3 (134-434); RDW 16.6 % (11.9-15.9); WHITE BLOOD COUNT 7.1 K/mm3 (4.0-10.0)
[2018-07-06] MEDS: ATORVASTATIN CA 40 MG TABLET (FP) PO SCH (22:17)
[2018-07-07] MEDS: LACTATED RINGERS SOLUTION 1,000 ML IV SCH (04:15)
--- NOTE | 2018-07-07 07:42 | PN ---
Progress Note, Physician History of Present Illness: GI FOLLOW UP NOTE Patient examined and case discussed with Dr. Eng Patient states having one episode of dark colored stool accompanied with rectal bleeding. Recent labs show current Hg 10.8. Denies nausea, vomiting, abdominal pain, diarrhea, constipation. - Current Medication List Current Medications: Active Medications Amlodipine Besylate (Norvasc -) 5 mg PO DAILY [facility] Last Admin: 07/06/18 10:01 Dose: 5 mg Atorvastatin Calcium (Lipitor -) 40 mg PO HS [facility] Last Admin: 07/06/18 22:17 Dose: 40 mg Lactated Ringer's (Lactated Ringers Solution) 1,000 mls @ 50 mls/hr IV ASDIR [facility] Last Admin: 07/07/18 04:15 Dose: 50 mls/hr Lisinopril (Prinivil) 10 mg PO DAILY [facility] Last Admin: 07/06/18 10:01 Dose: 10 mg Metoprolol Succinate (Toprol Xl -) 100 mg PO DAILY [facility] Last Admin: 07/06/18 10:02 Dose: 100 mg - Objective Vital Signs: Vital Signs Temperature 99.0 F 07/07/18 06:25 Pulse Rate 88 07/07/18 06:25 Respiratory Rate 20 07/07/18 06:25 Blood Pressure 118/74 07/07/18 06:25 O2 Sat by Pulse Oximetry (%) 95 07/06/18 23:00 Constitutional: Yes: No Distress, Calm Eyes: Yes: Conjunctiva Clear HENT: Yes: Atraumatic Cardiovascular: Yes: Regular Rate and Rhythm Respiratory: Yes: Regular, CTA Bilaterally Gastrointestinal: Yes: Normal Bowel Sounds, Soft, Other (tympany). No: WNL, Abdomen, Obese, Ascites, Distention, Hematemesis, Hemorrhoids, Hepatomegaly, Hernia, Hyperactive Bowel Sounds, Hypoactive Bowel Sounds, Melena, Palpable Mass , Pulsatile Mass, Rectal Bleeding, Splenomegaly, Tenderness, Tenderness, Epigastrium, Tenderness, Rebound, Vomiting Neurological: Yes: Alert, Oriented Psychiatric: Yes: Alert, Oriented Labs: CBC, BMP 07/06/18 15:05 07/06/18 12:00 INR, PTT INR 2.14 (0.83-1.09) H 07/06/18 12:00 Problem List - Problems (1) GI bleed Assessment/Plan: R>post polypectomy bleeding while taking Xarelto > Cardiology recommendation appreciated--re-start Xarelto when GI bleed subside >monitor Hg >transfuse for Hg <8.0 >IV hydration Code(s): K92.2 - GASTROINTESTINAL HEMORRHAGE, UNSPECIFIED Qualifiers: GI bleed type/associated pathology: unspecified gastrointestinal hemorrhage type Qualified Code(s): K92.2 - Gastrointestinal hemorrhage, unspecified
[2018-07-07] MEDS: LISINOPRIL 10 MG TABLET (FP) PO SCH (10:14)
[2018-07-07] MEDS: amLODIPine BESYLATE 5 MG TABLET (FP) PO SCH (10:14)
--- NOTE | 2018-07-07 12:09 | PN ---
Progress Note (short form) - Note Progress Note: Events noted No further GI bleeding since yesterday No BM today Eating lunch No pain no lightheadedness friend at bedside Vital Signs - 24 hr 07/06/18 07/06/18 07/06/18 14:10 21:00 22:19 Temperature 98.9 F 98.9 F Pulse Rate 74 84 Respiratory 20 20 Rate Blood Pressure 149/58 L 120/60 O2 Sat by Pulse 95 Oximetry (%) 07/06/18 07/07/18 07/07/18 23:00 03:15 06:25 Temperature 98.6 F 99.0 F Pulse Rate 75 88 Respiratory 20 20 20 Rate Blood Pressure 140/73 118/74 O2 Sat by Pulse 95 Oximetry (%) Current Medications Generic Name Dose Route Start Last Admin Trade Name Freq PRN Reason Stop Dose Admin Amlodipine Besylate 5 mg 07/06/18 10:00 07/07/18 10:14 Norvasc - PO 5 mg DAILY [facility] Administration Atorvastatin Calcium 40 mg 07/06/18 22:00 07/06/18 22:17 Lipitor - PO 40 mg HS [facility] Administration Lactated Ringer's 1,000 mls @ 50 mls/hr 07/06/18 05:00 07/07/18 04:15 Lactated Ringers Solution IV 50 mls/hr ASDIR [facility] Administration Lisinopril 10 mg 07/06/18 10:00 07/07/18 10:14 Prinivil PO 10 mg DAILY [facility] Administration Metoprolol Succinate 100 mg 07/06/18 10:00 07/07/18 10:14 Toprol Xl - PO 100 mg DAILY [facility] Administration Laboratory Results - last 24 hr 07/06/18 07/06/18 07/06/18 12:00 12:00 12:00 WBC 6.5 RBC 3.95 L Hgb 11.0 L Hct 33.8 L MCV 85.5 MCH 27.8 MCHC 32.5 RDW 16.4 H Plt Count 190 MPV 7.8 Absolute Neuts (auto) 4.8 Neutrophils % 73.4 Lymphocytes % 16.1 Monocytes % 8.3 Eosinophils % 1.6 Basophils % 0.6 Nucleated RBC % 0 PT with INR 25.40 H INR 2.14 H Sodium 135 L Potassium 4.2 Chloride 105 Carbon Dioxide 24 Anion Gap 6 L BUN 15 Creatinine 1.0 Est GFR (CKD-EPI)AfAm 84.36 Est GFR (CKD-EPI)NonAf 72.78 Random Glucose 88 Calcium 8.5 Phosphorus 3.0 Magnesium 2.2 Total Bilirubin 0.7 AST 25 ALT 20 Alkaline Phosphatase 91 Total Protein 7.7 Albumin 3.2 L 05/20/19 15:05 WBC 7.1 RBC 3.90 L Hgb 10.8 L Hct 33.5 L MCV 85.9 MCH 27.6 MCHC 32.1 RDW 16.6 H Plt Count 194 MPV 8.2 Absolute Neuts (auto) Neutrophils % Lymphocytes % Monocytes % Eosinophils % Basophils % Nucleated RBC % PT with INR INR Sodium Potassium Chloride Carbon Dioxide Anion Gap BUN Creatinine Est GFR (CKD-EPI)AfAm Est GFR (CKD-EPI)NonAf Random Glucose Calcium Phosphorus Magnesium Total Bilirubin AST ALT Alkaline Phosphatase Total Protein Albumin Physical Examination Constitutional: Yes: No Distress, comfortable Eyes: Yes: Conjunctiva Clear Neck: Yes: Supple. no jvd Cardiovascular: Yes: Regular Rate and Rhythm Respiratory: Yes: CTA Bilaterally Gastrointestinal: Yes: Soft/ non tender Edema: No Neurological: Yes: Alert Psychiatric: Yes: Alert Assessment/Plan GI bleed s/p recent colonoscopy cad monitor h/h dc iv fluids hold lasix/ k for now cardiology consult noted no further bleeding will change to Eliquis BID-- monitor for bleeding Problem List - Problems (1) Atrial fibrillation Code(s): I48.91 - UNSPECIFIED ATRIAL FIBRILLATION (2) CAD (coronary artery disease) Code(s): I25.10 - ATHSCL HEART DISEASE OF [place] CORONARY ARTERY W/O ANG PCTRS (3) GERD (gastroesophageal reflux disease) Code(s): K21.9 - GASTRO-ESOPHAGEAL REFLUX DISEASE WITHOUT ESOPHAGITIS (4) GI bleed Code(s): K92.2 - GASTROINTESTINAL HEMORRHAGE, UNSPECIFIED Qualifiers: GI bleed type/associated pathology: unspecified gastrointestinal hemorrhage type Qualified Code(s): K92.2 - Gastrointestinal hemorrhage, unspecified (5) HTN (hypertension) Code(s): I10 - ESSENTIAL (PRIMARY) HYPERTENSION Qualifiers: Hypertension type: essential hypertension Qualified Code(s): I10 - Essential (primary) hypertension (6) Hx of CABG Code(s): Z95.1 - PRESENCE OF AORTOCORONARY BYPASS GRAFT
[2018-07-07] MEDS: ATORVASTATIN CA 40 MG TABLET (FP) PO SCH (20:59)
[2018-07-07] MEDS: APIXABAN 5 MG TABLET PO SCH (20:59)
[2018-07-08 06:49] LABS: HEMATOCRIT 31.6 % (35.4-49); HEMOGLOBIN 10.3 GM/dL (11.7-16.9); MCH 27.8 pg (25.7-33.7); MCHC 32.6 g/dl (32.0-35.9); MEAN CELL VOLUME 85.1 fl (80-96); MEAN PLT VOLUME 8.1 fl (7.5-11.1); PLATELET COUNT 190 K/MM3 (134-434); RBC 3.71 M/mm3 (4.00-5.60); RDW 16.4 % (11.9-15.9); WHITE BLOOD COUNT 7.2 K/mm3 (4.0-10.0)
--- NOTE | 2018-07-08 09:19 | PN ---
Progress Note, Physician History of Present Illness: GI FOLLOW UP NOTE Patient examined and case discussed with Dr. Eng Patient had one BM last night with minimal amount of blood noted in stool. Patient re-started on Eliquis last night. Recent labs show Hg stable at 10.3. Denies nausea, vomiting, abdominal pain, diarrhea, constipation. - Current Medication List Current Medications: Active Medications Amlodipine Besylate (Norvasc -) 5 mg PO DAILY [facility] Last Admin: 07/07/18 10:14 Dose: 5 mg Apixaban (Eliquis -) 5 mg PO BID [facility] Last Admin: 07/07/18 20:59 Dose: 5 mg Atorvastatin Calcium (Lipitor -) 40 mg PO HS [facility] Last Admin: 07/07/18 20:59 Dose: 40 mg Lisinopril (Prinivil) 10 mg PO DAILY [facility] Last Admin: 07/07/18 10:14 Dose: 10 mg Metoprolol Succinate (Toprol Xl -) 100 mg PO DAILY [facility] Last Admin: 07/07/18 10:14 Dose: 100 mg - Objective Vital Signs: Vital Signs Temperature 98.6 F 07/07/18 22:57 Pulse Rate 68 07/07/18 22:57 Respiratory Rate 20 07/07/18 22:57 Blood Pressure 132/76 07/07/18 22:57 O2 Sat by Pulse Oximetry (%) 97 07/07/18 21:00 Constitutional: Yes: No Distress, Calm Eyes: Yes: Conjunctiva Clear HENT: Yes: Atraumatic Cardiovascular: Yes: Pulse Irregular Respiratory: Yes: Regular, CTA Bilaterally Gastrointestinal: Yes: Normal Bowel Sounds, Soft Neurological: Yes: Alert, Oriented Psychiatric: Yes: Alert, Oriented Labs: CBC, BMP 07/08/18 05:00 07/06/18 12:00 INR, PTT INR 2.14 (0.83-1.09) H 07/06/18 12:00 Problem List - Problems (1) GI bleed Assessment/Plan: R>post polypectomy bleeding while taking Xarelto > resume Eliquis >monitor Hg >transfuse for Hg <8.0 >IV hydration Code(s): K92.2 - GASTROINTESTINAL HEMORRHAGE, UNSPECIFIED Qualifiers: GI bleed type/associated pathology: unspecified gastrointestinal hemorrhage type Qualified Code(s): K92.2 - Gastrointestinal hemorrhage, unspecified
[2018-07-08] MEDS ORDERED: PT OWN MED DRAWER 7, Y5N ONE (09:41)
[2018-07-08] MEDS: APIXABAN 5 MG TABLET PO SCH (09:43)
[2018-07-08] MEDS: amLODIPine BESYLATE 5 MG TABLET (FP) PO SCH (09:43)
[2018-07-08] MEDS: LISINOPRIL 10 MG TABLET (FP) PO SCH (09:43)
--- NOTE | 2018-07-08 11:03 | PN ---
Progress Note, Physician Chief Complaint: Not in distress History of Present Illness: Patient was seen and examined. Awake and alert. Chart was reviewed Denies chest pain, SOB or palpitations - Current Medication List Current Medications: Active Medications Amlodipine Besylate (Norvasc -) 5 mg PO DAILY [facility] Last Admin: 07/08/18 09:43 Dose: 5 mg Apixaban (Eliquis -) 5 mg PO BID [facility] Last Admin: 07/08/18 09:43 Dose: 5 mg Atorvastatin Calcium (Lipitor -) 40 mg PO HS [facility] Last Admin: 07/07/18 20:59 Dose: 40 mg Lisinopril (Prinivil) 10 mg PO DAILY [facility] Last Admin: 07/08/18 09:43 Dose: 10 mg Metoprolol Succinate (Toprol Xl -) 100 mg PO DAILY [facility] Last Admin: 07/08/18 09:43 Dose: 100 mg - Objective Vital Signs: Vital Signs Temperature 98.6 F 07/07/18 22:57 Pulse Rate 68 07/07/18 22:57 Respiratory Rate 20 07/07/18 22:57 Blood Pressure 132/76 07/07/18 22:57 O2 Sat by Pulse Oximetry (%) 97 07/07/18 21:00 Eyes: Yes: PERRL HENT: Yes: Atraumatic Neck: Yes: Supple Cardiovascular: Yes: Regular Rate and Rhythm, S1, S2 Respiratory: Yes: CTA Bilaterally Gastrointestinal: Yes: Normal Bowel Sounds, Soft. No: Tenderness Edema: No Labs: CBC, BMP 07/08/18 05:00 07/06/18 12:00 INR, PTT INR 2.14 (0.83-1.09) H 07/06/18 12:00 Problem List - Problems (1) CAD (coronary artery disease) Code(s): I25.10 - ATHSCL HEART DISEASE OF [place] CORONARY ARTERY W/O ANG PCTRS (2) Hx of CABG Code(s): Z95.1 - PRESENCE OF AORTOCORONARY BYPASS GRAFT (3) S/P AVR (aortic valve replacement) Code(s): Z95.2 - PRESENCE OF PROSTHETIC HEART VALVE (4) S/P left atrial appendage ligation Code(s): Z98.890 - OTHER SPECIFIED POSTPROCEDURAL STATES (5) Aortic valve stenosis Code(s): I35.0 - NONRHEUMATIC AORTIC (VALVE) STENOSIS (6) Atrial fibrillation Code(s): I48.91 - UNSPECIFIED ATRIAL FIBRILLATION (7) HTN (hypertension) Code(s): I10 - ESSENTIAL (PRIMARY) HYPERTENSION Qualifiers: Hypertension type: essential hypertension Qualified Code(s): I10 - Essential (primary) hypertension (8) Hypercholesterolemia Code(s): E78.00 - PURE HYPERCHOLESTEROLEMIA, UNSPECIFIED (9) GERD (gastroesophageal reflux disease) Code(s): K21.9 - GASTRO-ESOPHAGEAL REFLUX DISEASE WITHOUT ESOPHAGITIS (10) Hiatal hernia Code(s): K44.9 - DIAPHRAGMATIC HERNIA WITHOUT OBSTRUCTION OR GANGRENE (11) GI bleed Code(s): K92.2 - GASTROINTESTINAL HEMORRHAGE, UNSPECIFIED Qualifiers: GI bleed type/associated pathology: unspecified gastrointestinal hemorrhage type Qualified Code(s): K92.2 - Gastrointestinal hemorrhage, unspecified Assessment/Plan 1. Rectal bleed post polypectomy 2. CAD, CABG, angina pectoris 3. HTN 4. Hypercholesterolemia 5. PAF [id number] score of 5 on DOAC (Xarelto) 6. Aortic valve disease s/p AVR (bioprosthesis), [place] appendage ligation 7. GERD and hiatal hernia PLAN: 1. Continue Metoprolol, Prinivil and Amlodipine 2. Atorvastatin 3. Continue Eliquis 5 mg BID Discharge planning if not further bleeding Further plans are to follow Phuc Dillon MD
--- NOTE | 2018-07-08 12:07 | DS ---
Physical Examination Vital Signs: Vital Signs Temperature 98.6 F 07/07/18 22:57 Pulse Rate 68 07/07/18 22:57 Respiratory Rate 20 07/07/18 22:57 Blood Pressure 132/76 07/07/18 22:57 O2 Sat by Pulse Oximetry (%) 97 07/07/18 21:00 Constitutional: Yes: No Distress, Calm Cardiovascular: Yes: Pulse Irregular Respiratory: Yes: CTA Bilaterally Gastrointestinal: Yes: Normal Bowel Sounds, Soft. No: Tenderness Edema: No Labs: CBC, BMP 07/08/18 05:00 07/06/18 12:00 Discharge Summary Reason For Visit: GASTROINTESTINAL HEMORRHAGE Current Active Problems Aortic valve stenosis (Acute) Atrial fibrillation (Acute) CAD (coronary artery disease) (Acute) GERD (gastroesophageal reflux disease) (Acute) GI bleed (Acute) HTN (hypertension) (Acute) Hiatal hernia (Acute) Hx of CABG (Acute) Hypercholesterolemia (Acute) S/P AVR (aortic valve replacement) (Acute) S/P left atrial appendage ligation (Acute) Hospital Course: Admitted for GI bleeding post colonoscopy and polypectomy Seen by Cardiology and GI HCT stable Started eliquis HCT stable no active bleeding stable for dc home Condition: Improved - Instructions Referrals: Phuc Dillon MD [Staff Physician] - Disposition: HOME - Home Medications Comprehensive Discharge Medication List: Ambulatory Orders Amlodipine Besylate/Benazepril [Lotrel 5-10 mg Capsule] 1 each PO DAILY Atorvastatin Ca [Lipitor] 40 mg PO HS 10/17/17 Furosemide [Lasix -] 20 mg PO ASDIR 10/17/17 Potassium Chloride [Klor-Con M20] 20 meq PO ASDIR 10/17/17 Rivaroxaban [Xarelto -] 20 mg PO DAILY 10/17/17 Metoprolol Succinate 100 mg PO DAILY 07/01/18
[2018-07-08 12:38] VITALS: BP 134/75; PULSE 83; TEMP 98.9
== END 2018-07-08 13:31 | disposition home or self-care (01) | DRG 920 ==
LOC: JER 02:11 → JERBED 04:32 → J6S 08:04 → OBSVTOIN 07-07 11:31
PROVIDERS: ADMIT Internal Medicine; ATTEND Internal Medicine
DX: K91.840 Postprocedural hemorrhage of a digestive system organ or structure following a digestive system procedure (principal); K92.2 Gastrointestinal hemorrhage, unspecified; D68.8 Other specified coagulation defects; Y83.8 Other surgical procedures as the cause of abnormal reaction of the patient, or of later complication, without mention of misadventure at the time of the procedure; Y73.8 Miscellaneous gastroenterology and urology devices associated with adverse incidents, not elsewhere classified; Y92.018 Other place in single-family (private) house as the place of occurrence of the external cause; I10 Essential (primary) hypertension; E78.5 Hyperlipidemia, unspecified; I48.91 Unspecified atrial fibrillation; Z79.01 Long term (current) use of anticoagulants; Z95.1 Presence of aortocoronary bypass graft; Z95.2 Presence of prosthetic heart valve; K21.9 Gastro-esophageal reflux disease without esophagitis; K44.9 Diaphragmatic hernia without obstruction or gangrene
CPT/HCPCS: 36415; 71045-TC-FY; 80053; 82272; 83735; 84100; 85025; 85027; 85044; 85610; 86850; 86900; 86901; 93005; 93010; 99282-25; G0378

== ENCOUNTER 2019-09-01 10:15 | Inpatient (IN) | payer OTHER, BC ==
[2019-09-01] MEDS ORDERED: ACETAMINOPHEN 1000 MG/100 ML VIAL (NON FORMULARY) IVPB ONE (11:09)
--- NOTE | 2019-09-01 11:10 | PDOC ---
Documentation entered by Claudia Kaye SCRIBE, acting as scribe for Shanta Watkins MD. Shanta Watkins MD: This documentation has been prepared by the Vargas lara Adrianna, SCRIBE, under my direction and personally reviewed by me in its entirety. I confirm that the documentation accurately reflects all work, treatment, procedures, and medical decision making performed by me. History of Present Illness - General Chief Complaint: Shortness of Breath Stated Complaint: SOB Time Seen by Provider: 09/01/19 10:29 History Source: Patient Exam Limitations: No Limitations - History of Present Illness Initial Comments: 09/01/19 11:09 HPI 78 year old male with history of CAD post CABG (SVG to LAD-D1), angina pectoris, diastolic LV dysfunction with chronic class 0-1 NYHA classification failure, PAF, [id number] score of 5 on DOAC (Eliquis), post AVR (bioprosthesis, 27 mm [place]un[place] INSPIRIS RESILIA Pericardial valve, 2018), LA appendage ligation, pulmonary vein isolation, HTN, hypercholesterolemia, hiatal hernia, GERD, GI bleed and nephrolithiasis who presents with SOB on exertion and [employer] cough x 3 days, a/w generalized weakness, fatigue, decreased appetite. +subjective fevers, Tmax 99-100. Denies chest pain, palpitation, dizziness, weakness, N, V, D, abdominal pain, bladder and bowel problems, focal weakness/paresthesias, leg swelling/pain, rash. No sick contacts or travel. Lives with . No new changes in medications. Allergies: None Past Medical History/PSH: as above Social history: Lives with . No tobacco, ETOH or drug use. Meds: as documented in EMR Family history: noncontributory PMD: Dr Adán Saul Review of systems Constitutional: +subjective low grade fevers or chills. +weakness HEENT: no headache or dizziness. No congestion. No visual/hearing disturbances. CVS: no cp or syncope. Resp: +sob. +cough. Gastrointestinal: no abdominal pain, nausea, vomiting, diarrhea. Genitourinary: no urinary sx, hematuria. MUSCULOSKELETAL: No joint pain and swelling. No neck or back pain. SKIN: no redness or skin changes, no discharge, no rash. No wounds. Hematologic: no easy bruising/bleeding. NEUROLOGIC: No headache, dizziness, LOC or altered mental status. No focal weakness, numbness or tingling. Psych: no anxiety or depression Allergic/Immunologic: no allergies All other systems reviewed and negative, or as documented in HPI. Physical exam General: friendly elderly gentleman, awake and alert, NAD. HEENT: NCAT, PERRL, EOMI, clear conjunctiva, anicteric, moist mucus membranes, clear oropharynx, no oral lesions.. Neck: neck supple, FROM Resp: lungs are clear, decreased breath sounds in right>left, tachypneic, mild respiratory distress, speaking full sentences. on 5L NC CVS: +tachycardia, no murmurs, 2+ peripheral pulses throughout, no peripheral edema Chest: anterior sternotomy scar Abdomen: soft, NTND, no rebound or guarding. +ventral hernia, reducible, prominent with valsalva Back: nontender, normal inspection and ROM MSK: no edema, BRADEN x4, ROM intact. No clubbing or cyanosis. normal bulk and tone. Extremities: no calf tenderness; RLE varicose veins, nontender, soft and mobile. Neuro: alert, oriented appropriately; no focal neurologic deficits Psych: Calm and cooperative Skin: warm and well perfused, cap refill <2 sec, normal color, no rash or skin discoloration. 09/01/19 11:09 09/01/19 11:19 09/01/19 12:36 Past History - Medical History Allergies/Adverse Reactions: Allergies Allergy/AdvReac Type Severity Reaction Status Date / Time No Known Allergies Allergy Verified 07/19/19 10:52 Home Medications: Ambulatory Orders Amlodipine Besylate/Benazepril [Lotrel 5-10 mg Capsule] 1 each PO DAILY 10/17/17 Atorvastatin Ca [Lipitor] 40 mg PO HS 10/17/17 Furosemide [Lasix -] 20 mg PO ASDIR 10/17/17 Potassium Chloride [Klor-Con M20] 20 meq PO ASDIR 10/17/17 Metoprolol Succinate 100 mg PO DAILY 07/01/18 Apixaban [Eliquis -] 5 mg PO BID #60 tablet 07/08/18 Anemia: No Asthma: No Cancer: No Cardiac Disorders: Yes (atrial flutter, angina, afib) CVA: No COPD: No CHF: No Dementia: No Diabetes: No GI Disorders: No Disorders: No HTN: Yes Hypercholesterolemia: Yes Liver Disease: No Seizures: No Thyroid Disease: No - Surgical History Abdominal Surgery: Yes (inguinal and umbilical hernia repair) Appendectomy: No Cardiac Surgery: Yes (aortic valve repl, cabs, stents) Cholecystectomy: No Lung Surgery: No Neurologic Surgery: No Orthopedic Surgery: No - Immunization History Immunization Up to Date: No - Psycho-Social/Smoking History Smoking History: Never smoked Have you smoked in the past 12 months: No If you are a former smoker, when did you quit?: 40 years ago Information on smoking cessation initiated: No - Substance Abuse Hx (Audit-C & DAST Scrn) How often the patient has a drink containing alcohol: Never Score: In Men: 4 or > Positive; In Women: 3 or > Positive: 0 Screen Result (Pos requires Nsg. Audit-10AR): Negative In the last yr the pt used illegal drug/Rx for NonMed reason: No Score: Yes response is considered Positive: 0 Screen Result (Positive result requires Nsg. DAST-10): Negative *Physical Exam - Vital Signs Last Vital Signs Temp Pulse Resp BP Pulse Ox 98.5 F 128 H 16 103/61 84 L 09/01/19 10:17 09/01/19 10:17 09/01/19 10:17 09/01/19 10:17 09/01/19 10:17 Heart Score/ECG Review #1 ECG reviewed & interpreted by me at: 11:00 General ECG Interpretation: Sinus Rhythm Compared to previous ECG there are: Changes noted 09/01/19 11:18 EKG sinus tachycardia, at 127 bpm, no interval abnormalities, narrow QRS, ST depressions in V4 to V6 as well as inferiorly in 2 3 aVF, 1 and aVL likely rate related as patient is in sinus tachycardia , nonspecific T wave abnormalities ED Treatment Course - LABORATORY CBC & Chemistry Diagram: 09/02/19 07:15 09/02/19 07:15 Medical Decision Making - Critical Care Time Total Critical Care Time (minutes): 40 (acute respiratory failure) Critical Care Statement: The care of this patient involved high complexity decision making to prevent further life threatening deterioration of the patient's condition and/or to evaluate & treat vital organ system(s) failure or risk of failure. - Medical Decision Making 09/01/19 11:12 Vital Signs Temp Pulse Resp BP Pulse Ox 98.5 F 128 H 16 103/61 84 L 09/01/19 10:17 09/01/19 10:17 09/01/19 10:17 09/01/19 10:17 09/01/19 10:17 Vitals reviewed_ +low grade fever, tachycardia, hypoxia and mild respiratory distress mentating uptitrated spO2 >92% with 5LNC, pt tolerating Differential diagnosis includes viral syndrome, pleurisy, covid 19 infection, pneumonia,, pleural effusion, pulmonary edema, pneumonia. ACS, arrhythmia, anemia, electrolyte/metabolic derangements, bacteremia. highly suspicious for covid 19 infection Covid 19 testing indicated given his risk of exposures and clinical history will anticipate admission CBC, CMP, lytes, lactic, crp, ldh, trop, inflammatory and prognostic markers, vbg sent EKG sinus tachycardia, at 127 bpm, no interval abnormalities, narrow QRS, ST depressions in V4 to V6 as well as inferiorly in 2 3 aVF, 1 and aVL likely rate related as patient is in sinus tachycardia , nonspecific T wave abnormalities Interpreted by ED Physician: CXR (1 view): bilateral interstitial infiltrates, bones appear intact and structures normal alignment, cardiac silhouette within normal limits. no free air under diaphragm, no pneumothorax. much changed from prior last covid 19 tested 07/13/19 which was negative 09/01/19 12:37 Laboratory results are reviewed, no WBC count, mildly anemic. Elevated coags are noted, patient is on anticoagulation. VBG is normal, reassuring, no acidosis or alkalosis. Electrolytes are normal, creatinine is preserved. Lactic acidosis noted 2.5 likely from infection vs hypoxia. Inflammatory markers are also elevated as expected, high suspicion for COVID-19 infection. gentle IVF, keep net negative in setting of suspected covid 19 antipyretics, analgesia, Dexamethasone 6 mg IV given very high suspicion on CXR and clinical sx and recent Recovery trial for patients having supplemental O2 blood cultures pending admission warranted - admitting to Dr Harley, telemetry, for suspected covid 19 infection/pneumonia droplet/contact precautions, remains on isolation 09/01/19 14:07 Please note this patient was evaluated during the COVID-19 crisis with the presidential [place] Act Declaration and the [place] governor executive order number 202. He/she was evaluated and clinical decisions were made relative to healthcare system resources as well as clinical picture during a pandemic crisis situation. Discharge - Discharge Information Problems reviewed: Yes Clinical Impression/Diagnosis: Suspected 2019 novel coronavirus infection, Acute respiratory failure with hypoxia Condition: Stable - Admission Yes - Follow up/Referral - Patient Discharge Instructions - Post Discharge Activity Vital Signs - Vital Signs Vital signs refused: No Pulse Rate: 83 Respiratory Rate: 35 Blood Pressure: 119/73 BP Location: Right Arm Blood Pressure position: Sitting
[2019-09-01] MEDS ORDERED: DEXAMETHASONE SOD PHOSPHATE 20 MG/5 ML VIAL IVPB ONE (11:13)
[2019-09-01] MEDS ORDERED: SODIUM CHLORIDE 0.9% 500 ML INFUS.BAG IV ONE (11:17)
[2019-09-01] MEDS ORDERED: DEXAMETHASONE SOD PHOSPHATE 10 MG/1 ML VIAL ONE (11:18)
[2019-09-01] MEDS ORDERED: ACETAMINOPHEN INJECTION 100 ML IVPB ONE (11:18)
[2019-09-01 11:31] LABS: BASO % 0.2 % (0-2.0); EOS % 0.5 % (0-4.5); HEMATOCRIT 33.1 % (35.4-49); HEMOGLOBIN 11.2 GM/dL (11.7-16.9); MCH 31.1 pg (25.7-33.7); MCHC 33.8 g/dl (32.0-35.9); MEAN CELL VOLUME 92.3 fl (80-96); MEAN PLT VOLUME 7.2 fl (7.5-11.1); MONO % 3.7 % (3.8-10.2); NEUT % 87.6 % (42.8-82.8); PLATELET COUNT 394 K/MM3 (134-434); RBC 3.58 M/mm3 (4.00-5.60); RDW 13.7 % (11.9-15.9)
[2019-09-01 11:37] LABS: INR 2.95 (0.83-1.09); PROTHROMBIN TIME (PATIENT) 35.2 SEC (9.7-13.0)
[2019-09-01 11:45] LABS: VENOUS BASE EXCESS -2.4 mmol/L (-2-2); VENOUS O2 SATURATION 67.6 % (70-80); VENOUS PCO2 34.5 mmHg (38-52); VENOUS PH 7.413 (7.310-7.410)
[2019-09-01 12:02] LABS: BILIRUBIN,TOTAL 0.9 mg/dL (0.2-1); BLOOD UREA NITROGEN 21.8 mg/dL (7-18); CREATININE 1.1 mg/dL (0.55-1.3); MAGNESIUM 2.2 mg/dL (1.8-2.4); N-TERMINAL BNP 3376.9 pg/ml (5-450); POTASSIUM 3.6 mmol/L (3.5-5.1); TOT PROT 7.6 g/dl (6.4-8.2)
--- NOTE | 2019-09-01 12:08 | EKG ---
Test Reason : Blood Pressure : / mmHG Vent. Rate : 127 BPM Atrial Rate : 127 BPM P-R Int : 130 ms QRS Dur : 106 ms QT Int : 356 ms P-R-T Axes : 000 007 211 degrees QTc Int : 517 ms SINUS TACHYCARDIA WITH 1ST DEGREE A-V BLOCK LEFT VENTRICULAR HYPERTROPHY WITH REPOLARIZATION ABNORMALITY ABNORMAL ECG Confirmed by MD GABRIEL, MALORIE ([id number]) on 09/01/2019 12:08:01 PM Referred By: Confirmed By:MALORIE RIOS MD
--- NOTE | 2019-09-01 13:23 | CON.CARD ---
Consult Consult Specialty:: Cardiology Referred by:: Mrs Brown called office triggering ED visit Reason for Consultation:: Progressive BLOCK with minimal exertion - History of Present Illness Chief Complaint: Progressive BLOCK History of Present Illness: Patient is a 78 year old male with history of CAD post CABG (SVG to LAD-D1), a ngina pectoris, diastolic LV dysfunction with chronic class 0-1 NYHA classification failure, paroxysmal atrial flutter, [id number] score of 5 on DOAC (Eliquis), post AVR (bioprosthesis, 27 mm [place]ha INSPIRIS RESILIA Pericardial valve, 2018), LA appendage ligation, pulmonary vein isolation, HTN, hypercholesterolemia, hiatal hernia, GERD, GI bleed and nephrolithiasis who presents with progressive SOB on exertion, non-productive cough x 3 days, a/w generalized weakness, fatigue, decreased appetite. +subjective fevers, Tmax 99- 100. Denies chest pain, palpitation, dizziness, weakness, N, V, D, abdominal pain, bladder and bowel problems, focal weakness/paresthesias, leg swelling/pain, rash. No sick contacts or travel. Lives with . No new changes in medications. Last office visit 04/01/2019. - History Source History Provided By: Patient, Medical Record Limitations to Obtaining History: Clinical Condition - Past Medical History Cardio/Vascular: Yes: HTN, Hyperlipdemia, Other Gastrointestinal: Yes: Other - Past Surgical History Past Surgical History: Yes: Valve Replacement - Alcohol/Substance Use Hx Alcohol Use: No History of Substance Use: reports: None - Smoking History Smoking history: Never smoked Have you smoked in the past 12 months: No If you are a former smoker, when did you quit?: 40 years ago - Social History Usual Living Arrangement: With Spouse ADL: Independent History of Recent Travel: No Home Medications - Allergies Allergies/Adverse Reactions: Allergies Allergy/AdvReac Type Severity Reaction Status Date / Time No Known Allergies Allergy Verified 07/19/19 10:52 - Home Medications Home Medications: Ambulatory Orders Amlodipine Besylate/Benazepril [Lotrel 5-10 mg Capsule] 1 each PO DAILY 10/17/17 Atorvastatin Ca [Lipitor] 40 mg PO HS 10/17/17 Furosemide [Lasix -] 20 mg PO ASDIR 10/17/17 Potassium Chloride [Klor-Con M20] 20 meq PO ASDIR 10/17/17 Metoprolol Succinate 100 mg PO DAILY 07/01/18 Apixaban [Eliquis -] 5 mg PO BID #60 tablet 07/08/18 Vital Signs: Vital Signs Temperature 98.5 F 09/01/19 10:17 Pulse Rate 128 H 09/01/19 10:17 Respiratory Rate 16 09/01/19 10:17 Blood Pressure 103/61 09/01/19 10:17 O2 Sat by Pulse Oximetry (%) 84 L 09/01/19 10:17 Constitutional: Yes: No Distress, Calm, Thin Neck: Yes: Supple Respiratory: Yes: Diminished, On Venti-Mask, SOB, SOB on Exertion Gastrointestinal: Yes: Soft, Hypoactive Bowel Sounds Cardiovascular: Yes: Regular Rate and Rhythm JVD: No Carotid Bruit: No Heart Sounds: Yes: S1, S2 Murmur: Yes: Systolic Murmur Edema: Yes Edema: LLE: Trace, RLE: Trace - Other Data Labs, Other Data: CBC, BMP 09/01/19 10:38 09/01/19 10:38 INR, PTT INR 2.95 (0.83-1.09) H 09/01/19 10:38 Troponin, BNP 09/01/19 09/01/19 10:38 10:42 Troponin I 0.02 B-Natriuretic Peptide 3376.9 H Troponin, BNP 09/01/19 09/01/19 10:38 10:42 Troponin I 0.02 B-Natriuretic Peptide 3376.9 H Atypical atrial flutter with2:1AV conduction at 127bpm, left ventricular hypertrophy with repolarization abnormality Ejection Fraction %: LVEF > or = 40 % Imaging - Results Chest X-ray: Report Reviewed (Bilateral airspace opacities) Problem List - Problems (1) Acute respiratory failure with hypoxia Code(s): J96.01 - ACUTE RESPIRATORY FAILURE WITH HYPOXIA (2) Suspected 2019 novel coronavirus infection Code(s): Z20.828 - CONTACT W AND EXPOSURE TO OTH VIRAL COMMUNICABLE DISEASES Assessment/Plan Assessment/Plan - Problems (1) CAD (coronary artery disease) Code(s): I25.10 - ATHSCL HEART DISEASE OF [place] CORONARY ARTERY W/O ANG PCTRS (2) Hx of CABG Code(s): Z95.1 - PRESENCE OF AORTOCORONARY BYPASS GRAFT (3) S/P AVR (aortic valve replacement) Code(s): Z95.2 - PRESENCE OF PROSTHETIC HEART VALVE (4) S/P left atrial appendage ligation Code(s): Z98.890 - OTHER SPECIFIED POSTPROCEDURAL STATES (5) Aortic valve stenosis Code(s): I35.0 - NONRHEUMATIC AORTIC (VALVE) STENOSIS (6) Atrial fibrillation Code(s): I48.91 - UNSPECIFIED ATRIAL FIBRILLATION (7) HTN (hypertension) Code(s): I10 - ESSENTIAL (PRIMARY) HYPERTENSION Qualifiers: Hypertension type: essential hypertension Qualified Code(s): I10 - Essential (primary) hypertension (8) Hypercholesterolemia Code(s): E78.00 - PURE HYPERCHOLESTEROLEMIA, UNSPECIFIED (9) GERD (gastroesophageal reflux disease) Code(s): K21.9 - GASTRO-ESOPHAGEAL REFLUX DISEASE WITHOUT ESOPHAGITIS (10) Hiatal hernia Code(s): K44.9 - DIAPHRAGMATIC HERNIA WITHOUT OBSTRUCTION OR GANGRENE (11) GI bleed Code(s): K92.2 - GASTROINTESTINAL HEMORRHAGE, UNSPECIFIED Qualifiers: GI bleed type/associated pathology: unspecified gastrointestinal hemorrhage type Qualified Code(s): K92.2 - Gastrointestinal hemorrhage, unspecified Assessment/Plan Echocardiography performed October 12, 2018 revealed mild degree of concentric left ventricular hypertrophy with normal left ventricular systolic function and estimated LVEF between 65-70%, mild left atrial dilatation, normal right ventricular size and systolic function, aortic valve bioprosthesis with no aortic valve insufficiency, moderately dilated ascending aorta, mild thickening of the mitral valve leaflets with mild mitral valve regurgitation, mild to moderate tricuspid valve regurgitation with calculated RVSP of 42 mmHg. 1. Acute hypoxic respiratory failure r/o COVID 19 2. Recurrent paroxysmal aflutter with rapid ventricular response [id number] score of 5 on DOAC (Eliquis) 3. CAD, CABG, angina pectoris 4. HTN 5. Hypercholesterolemia 6. Aortic valve stenosis s/p AVR (bioprosthesis), LA appendage ligation 7. Diastolic dysfunction 8. GERD and hiatal hernia, h/o rectal bleed post polypectomy PLAN: 1. Empiric abx per C&S, IV steroids with GI protection, O2 to maintain saO2, f/u COVID 19, isolation 2. Ruling out for [place], Check BNP, fasting lipid levels, reviewed office notes 3. Continue Metoprolol XL 100 qd, Prinivil 10 qd, Norvasc 5 qd and Atorvastatin 40 qd as hemodynamics tolerate 4. Continue Eliquis 5 mg BID for elevated d-dimer, 5. F/u COVID 19 PCR 6. F/u as outpatient with Dr. Ang 7. Thank you for consultative opportunity
[2019-09-01] MEDS ORDERED: ALBUTEROL SO4 HFA INHALER IH PRN (13:31)
--- NOTE | 2019-09-01 13:34 | HP ---
Admitting History and Physical - Primary Care Physician PCP: Kg Mccain - Admission Chief Complaint: sob,cough History of Present Illness: History of Present Illness Initial Comments: 09/01/19 11:09 HPI 78 year old male with history of CAD post CABG (SVG to LAD-D1), angina pectoris, diastolic LV dysfunction with chronic class 0-1 NYHA classification failure, PAF, [id number] score of 5 on DOAC (Eliquis), post AVR (bioprosthesis, 27 mm [place] INSPIRIS RESILIA Pericardial valve, 2018), LA appendage ligation, pulmonary vein isolation, HTN, hypercholesterolemia, hiatal hernia, GERD, GI bleed and nephrolithiasis who presents with SOB on exertion and [employer] cough x 3 days, a/w generalized weakness, fatigue, decreased appetite. +subjective fevers, Tmax 99-100. Denies chest pain, palpitation, dizziness, weakness, N, V, D, abdominal pain, bladder and bowel problems, focal weakness/paresthesias, leg swelling/pain, rash. No sick contacts or travel. Lives with . No new changes in medications. Allergies: None Past Medical History/PSH: as above Social history: Lives with . No tobacco, ETOH or drug use. Meds: as documented in EMR Family history: noncontributory PMD: Dr Adán Saul ED Course received decadron,on ventimask in the ER History Source: Patient Limitations to Obtaining History: No Limitations - Past Medical History Cardiovascular: Yes: HTN, Hyperlipdemia, Other Gastrointestinal: Yes: Other - Past Surgical History Past Surgical History: Yes: Valve Replacement - Smoking History Smoking history: Never smoked Have you smoked in the past 12 months: No If you are a former smoker, when did you quit?: 40 years ago - Alcohol/Substance Use Hx Alcohol Use: No History of Substance Use: reports: None - Social History ADL: Independent History of Recent Travel: No Home Medications - Allergies Allergies/Adverse Reactions: Allergies Allergy/AdvReac Type Severity Reaction Status Date / Time No Known Allergies Allergy Verified 07/19/19 10:52 - Home Medications Home Medications: Ambulatory Orders Amlodipine Besylate/Benazepril [Lotrel 5-10 mg Capsule] 1 each PO DAILY 10/17/17 Atorvastatin Ca [Lipitor] 40 mg PO HS 10/17/17 Furosemide [Lasix -] 20 mg PO ASDIR 10/17/17 Potassium Chloride [Klor-Con M20] 20 meq PO ASDIR 10/17/17 Metoprolol Succinate 100 mg PO DAILY 07/01/18 Apixaban [Eliquis -] 5 mg PO BID #60 tablet 07/08/18 Review of Systems - Review of Systems Constitutional: reports: Chills, Fever Respiratory: reports: Cough, SOB Physical Examination Vital Signs: Vital Signs Temperature 98.5 F 09/01/19 10:17 Pulse Rate 128 H 09/01/19 10:17 Respiratory Rate 16 09/01/19 10:17 Blood Pressure 103/61 09/01/19 10:17 O2 Sat by Pulse Oximetry (%) 84 L 09/01/19 10:17 Constitutional: Yes: Mild Distress Cardiovascular: Yes: Regular Rate and Rhythm, Murmur Respiratory: Yes: Diminished Gastrointestinal: Yes: Normal Bowel Sounds, Soft. No: Tenderness Edema: Yes Edema: LLE: Trace, RLE: Trace Psychiatric: Yes: Alert, Oriented Labs: CBC, BMP 09/01/19 10:38 09/01/19 10:38 Imaging - Results Chest X-ray: Image Reviewed (congestion) EKG: Image Reviewed (sinus tachycardia) Problem List - Problems (1) Acute respiratory failure with hypoxia Code(s): J96.01 - ACUTE RESPIRATORY FAILURE WITH HYPOXIA (2) Suspected 2019 novel coronavirus infection Code(s): Z20.828 - CONTACT W AND EXPOSURE TO OTH VIRAL COMMUNICABLE DISEASES (3) Aortic valve stenosis Code(s): I35.0 - NONRHEUMATIC AORTIC (VALVE) STENOSIS (4) Atrial fibrillation Code(s): I48.91 - UNSPECIFIED ATRIAL FIBRILLATION (5) CAD (coronary artery disease) Code(s): I25.10 - ATHSCL HEART DISEASE OF [place] CORONARY ARTERY W/O ANG PCTRS (6) HTN (hypertension) Code(s): I10 - ESSENTIAL (PRIMARY) HYPERTENSION Qualifiers: Assessment/Plan PLAN On Ventimask- O2 sat to be >92% Albuterol inhalation as needed Start zithromax Start Decadron check urine antigens rule out COVID 19 Check BNP continue Eliquis monitor inflammatory markers Cardiology eval appreciated Pulmonary eval
[2019-09-01] MEDS ORDERED: ZINC SULFATE 220 MG CAPSULE (FP) ONE (13:43)
[2019-09-01] MEDS ORDERED: ASCORBIC ACID 500 MG TABLET (FP) ONE (13:43)
[2019-09-01] MEDS ORDERED: AZITHROMYCIN IVPB 500 MG/250 ML BAG IVPB ONE (13:43)
[2019-09-01] MEDS ORDERED: FAMOTIDINE 20 MG/50 ML IVPB 20 MG/50 ML MG IVPB ONE (13:43)
[2019-09-01] MEDS: ZINC SULFATE 220 MG CAPSULE (FP) PO SCH ×2 (13:53→22:50)
[2019-09-01] MEDS: AZITHROMYCIN IVPB 500 MG/250 ML BAG IVPB SCH (13:54)
[2019-09-01] MEDS: ASCORBIC ACID 500 MG TABLET (FP) PO SCH (13:54)
[2019-09-01] MEDS: FAMOTIDINE 20 MG/50 ML IVPB 20 MG/50 ML MG IVPB SCH ×2 (13:54→22:50)
[2019-09-01] MEDS ORDERED: ACETAMINOPHEN 325 MG TABLET (FP) PO PRN (18:17)
[2019-09-01] MEDS: APIXABAN 5 MG TABLET PO SCH (22:50)
[2019-09-01] MEDS: ATORVASTATIN CA 40 MG TABLET (FP) PO SCH (22:50)
[2019-09-02 08:28] LABS: BASO % 0.1 % (0-2.0); EOS % 0.1 % (0-4.5); HEMATOCRIT 38.3 % (35.4-49); HEMOGLOBIN 12.6 GM/dL (11.7-16.9); LYMPH % 4.1 % (8-40); MCH 30.4 pg (25.7-33.7); MEAN CELL VOLUME 92.3 fl (80-96); MEAN PLT VOLUME 7.3 fl (7.5-11.1); MONO % 2.6 % (3.8-10.2); NEUT % 93.1 % (42.8-82.8); PLATELET COUNT 489 K/MM3 (134-434); RBC 4.15 M/mm3 (4.00-5.60); WHITE BLOOD COUNT 16.6 K/mm3 (4.0-10.0)
[2019-09-02 08:52] LABS: ALBUMIN 2.2 g/dl (3.4-5.0); BILIRUBIN,TOTAL 0.9 mg/dL (0.2-1); BLOOD UREA NITROGEN 24.8 mg/dL (7-18); CALCIUM 8.5 mg/dL (8.5-10.1); POTASSIUM 4.1 mmol/L (3.5-5.1); TOT PROT 8.6 g/dl (6.4-8.2)
[2019-09-02] MEDS: ASCORBIC ACID 500 MG TABLET (FP) PO SCH (09:01)
[2019-09-02] MEDS: APIXABAN 5 MG TABLET PO SCH ×2 (09:01→22:41)
[2019-09-02] MEDS: AZITHROMYCIN IVPB 500 MG/250 ML BAG IVPB SCH (09:02)
[2019-09-02] MEDS: ZINC SULFATE 220 MG CAPSULE (FP) PO SCH ×2 (09:02→22:41)
[2019-09-02] MEDS ORDERED: DEXAMETHASONE SOD PHOSPHATE 10 MG/1 ML VIAL IVPUSH SCH (10:00)
[2019-09-02 10:40] LABS: ANISOCYTOSIS 0; MACROCYTOSIS 0; PLATELET ESTIMATE NORMAL
[2019-09-02] MEDS: FAMOTIDINE 20 MG/50 ML IVPB 20 MG/50 ML MG IVPB SCH ×2 (11:00→22:46)
[2019-09-02] MEDS ORDERED: PT OWN MED DRAWER 7, Y5N ONE (11:03)
--- NOTE | 2019-09-02 11:17 | PN ---
Progress Note, Physician History of Present Illness: Dyspnea and hypoxic 93% 100% NRB. Covid PCR negative, BNP elevated. - Current Medication List Current Medications: Active Medications Acetaminophen (Tylenol -) 650 mg PO Q4H PRN PRN Reason: FEVER Albuterol Sulfate (Ventolin Hfa Inhaler -) 2 puff IH Q4H PRN PRN Reason: SHORT OF BREATH/WHEEZING Apixaban (Eliquis -) 5 mg PO BID [facility] Last Admin: 09/02/19 09:01 Dose: 5 mg Documented by: Ascorbic Acid (Vitamin C -) 500 mg PO DAILY [facility] Last Admin: 09/02/19 09:01 Dose: 500 mg Documented by: Atorvastatin Calcium (Lipitor -) 40 mg PO HS [facility] Last Admin: 09/01/19 22:50 Dose: 40 mg Documented by: Dexamethasone Sodium Phosphate (Decadron Injection -) 6 mg IVPUSH DAILY [facility] Azithromycin (Zithromax 500mg Ivpb (Pre-Docked)) 500 mg in 250 mls @ 250 mls/hr IVPB DAILY [facility] Last Admin: 09/02/19 09:02 Dose: 250 mls/hr Documented by: Famotidine/Sodium Chloride (Pepcid 20 Mg Premixed Ivpb -) 20 mg in 50 mls @ 100 mls/hr IVPB BID [facility] Last Admin: 09/02/19 11:00 Dose: 100 mls/hr Documented by: Metoprolol Succinate (Toprol Xl -) 100 mg PO DAILY [facility] Last Admin: 09/02/19 09:02 Dose: 100 mg Documented by: Zinc Sulfate (Orazinc -) 220 mg PO BID [facility] Last Admin: 09/02/19 09:02 Dose: 220 mg Documented by: - Objective Vital Signs: Vital Signs Temperature 97.6 F 09/02/19 09:52 Pulse Rate 120 H 09/02/19 09:52 Respiratory Rate 20 09/02/19 09:52 Blood Pressure 110/67 09/02/19 09:52 O2 Sat by Pulse Oximetry (%) 94 L 09/02/19 09:56 Constitutional: Yes: No Distress, Calm Neck: Yes: Supple Cardiovascular: Yes: Tachycardia, Pulse Irregular Respiratory: Yes: Regular, Diminished, On Venti-Mask, SOB, SOB on Exertion Gastrointestinal: Yes: Soft, Hypoactive Bowel Sounds Edema: No Labs: CBC, BMP 09/02/19 07:15 09/02/19 07:15 INR, PTT INR 2.95 (0.83-1.09) H 09/01/19 10:38 - ....Imaging EKG: Report Reviewed (Tele: NSR) Problem List - Problems (1) Acute respiratory failure with hypoxia Code(s): J96.01 - ACUTE RESPIRATORY FAILURE WITH HYPOXIA (2) Suspected 2019 novel coronavirus infection Code(s): Z20.828 - CONTACT W AND EXPOSURE TO OTH VIRAL COMMUNICABLE DISEASES (3) Acute on chronic diastolic (congestive) heart failure Code(s): I50.33 - ACUTE ON CHRONIC DIASTOLIC (CONGESTIVE) HEART FAILURE Assessment/Plan Assessment/Plan - Problems (1) CAD (coronary artery disease) Code(s): I25.10 - ATHSCL HEART DISEASE OF [place] CORONARY ARTERY W/O ANG PCTRS (2) Hx of CABG Code(s): Z95.1 - PRESENCE OF AORTOCORONARY BYPASS GRAFT (3) S/P AVR (aortic valve replacement) Code(s): Z95.2 - PRESENCE OF PROSTHETIC HEART VALVE (4) S/P left atrial appendage ligation Code(s): Z98.890 - OTHER SPECIFIED POSTPROCEDURAL STATES (5) Aortic valve stenosis Code(s): I35.0 - NONRHEUMATIC AORTIC (VALVE) STENOSIS (6) Atrial fibrillation Code(s): I48.91 - UNSPECIFIED ATRIAL FIBRILLATION (7) HTN (hypertension) Code(s): I10 - ESSENTIAL (PRIMARY) HYPERTENSION Qualifiers: Hypertension type: essential hypertension Qualified Code(s): I10 - Essential (primary) hypertension (8) Hypercholesterolemia Code(s): E78.00 - PURE HYPERCHOLESTEROLEMIA, UNSPECIFIED (9) GERD (gastroesophageal reflux disease) Code(s): K21.9 - GASTRO-ESOPHAGEAL REFLUX DISEASE WITHOUT ESOPHAGITIS (10) Hiatal hernia Code(s): K44.9 - DIAPHRAGMATIC HERNIA WITHOUT OBSTRUCTION OR GANGRENE (11) GI bleed Code(s): K92.2 - GASTROINTESTINAL HEMORRHAGE, UNSPECIFIED Qualifiers: GI bleed type/associated pathology: unspecified gastrointestinal hemorrhage type Qualified Code(s): K92.2 - Gastrointestinal hemorrhage, unspecified Assessment/Plan Echocardiography performed October 12, 2018 revealed mild degree of concentric left ventricular hypertrophy with normal left ventricular systolic function and estimated LVEF between 65-70%, mild left atrial dilatation, normal right vent ricular size and systolic function, aortic valve bioprosthesis with no aortic valve insufficiency, moderately dilated ascending aorta, mild thickening of the mitral valve leaflets with mild mitral valve regurgitation, mild to moderate tricuspid valve regurgitation with calculated RVSP of 42 mmHg. 1. Acute hypoxic respiratory failure ruled out COVID 19 2. Acute on chronic diastolic heart failure 3. Recurrent paroxysmal aflutter with rapid ventricular response [id number] score of 5 on DOAC (Eliquis) 4. CAD, CABG, angina pectoris 5. HTN 6. Hypercholesterolemia 7. Aortic valve stenosis s/p AVR (bioprosthesis), LA appendage ligation 8. GERD and hiatal hernia, h/o rectal bleed post polypectomy PLAN: 1. Empiric abx per C&S, d/c IV steroids with GI protection, O2 to maintain saO2>90%, COVID 19 PCR negative 2. Ruled out for [place], Check fasting lipid levels, reviewed office notes 3. Continue Metoprolol XL 100 qd, Prinivil 10 qd, change Norvasc 5 qd to Cardi zem CD 120 qd and Atorvastatin 40 qd as hemodynamics tolerate 4. Continue Eliquis 5 mg BID for elevated d-dimer, IV diuresis and monitor diuretic response, renal fxn and electrolytes 5. F/u as outpatient with Dr. Ang
[2019-09-02] MEDS: FUROSEMIDE 40 MG/4 ML INJECTABLE VIAL IVPUSH SCH (11:42)
--- NOTE | 2019-09-02 12:31 | PN ---
Progress Note (short form) - Note Progress Note: unable to decrease O2 requirements per RN-- he is on 100% NRB spoke with RN-- apparently he had h/o hallucinations few weeks prior per Psychiatrist-- Dr Eliz Medina Vital Signs - 24 hr 09/01/19 09/01/19 09/01/19 14:05 14:07 16:06 Temperature 98.8 F Pulse Rate 83 Pulse Rate [ 79 121 H Apical] Respiratory 40 H 35 H 31 H Rate Blood Pressure 119/73 Blood Pressure 110/71 140/90 [Left Arm] O2 Sat by Pulse 97 94 L Oximetry (%) 09/01/19 09/01/19 09/02/19 17:36 19:35 01:04 Temperature 98.6 F 98.5 F Pulse Rate 118 H Pulse Rate [ 84 99 H Apical] Respiratory 19 22 H 20 Rate Blood Pressure 158/89 Blood Pressure 132/83 120/59 L [Left Arm] O2 Sat by Pulse 84 L 94 L 92 L Oximetry (%) 09/02/19 09/02/19 09/02/19 09:52 09:56 12:06 Temperature 97.6 F Pulse Rate 120 H Pulse Rate [ Apical] Respiratory 20 Rate Blood Pressure 110/67 Blood Pressure [Left Arm] O2 Sat by Pulse 90 L 94 L 95 Oximetry (%) Current Medications Generic Name Dose Route Start Last Admin Trade Name Freq PRN Reason Stop Dose Admin Acetaminophen 650 mg 09/01/19 18:17 Tylenol - PO Q4H PRN FEVER Albuterol Sulfate 2 puff 09/01/19 13:31 Ventolin Hfa Inhaler - IH Q4H PRN SHORT OF BREATH/WHEEZING Apixaban 5 mg 09/01/19 22:00 09/02/19 09:01 Eliquis - PO 5 mg BID MAGI Administration Ascorbic Acid 500 mg 09/01/19 13:45 09/02/19 09:01 Vitamin C - PO 500 mg DAILY MAGI Administration Atorvastatin Calcium 40 mg 09/01/19 22:00 09/01/19 22:50 Lipitor - PO 40 mg HS MAGI Administration Diltiazem HCl 120 mg 09/02/19 11:30 09/02/19 11:42 Cardizem Cd - PO 120 mg DAILY MAGI Administration Furosemide 40 mg 09/02/19 11:30 09/02/19 11:42 Lasix Injection - IVPUSH 40 mg DAILY MAGI Administration Azithromycin 500 mg in 250 mls @ 250 mls/hr 09/01/19 13:45 09/02/19 09:02 Zithromax 500mg Ivpb (Pre-Docked) IVPB 250 mls/hr DAILY MAGI Administration Famotidine/Sodium Chloride 20 mg in 50 mls @ 100 mls/hr 09/01/19 13:45 09/02/19 11:00 Pepcid 20 Mg Premixed Ivpb - IVPB 100 mls/hr BID MAGI Administration Ceftriaxone Sodium 1 gm/ 50 mls @ 100 mls/hr 09/02/19 12:45 09/02/19 12:53 Dextrose IVPB 100 mls/hr DAILY MAGI Administration Methylprednisolone Sodium Succinate 60 mg 09/02/19 12:52 Solu-Medrol - IVPUSH 09/02/19 12:53 ONCE ONE Methylprednisolone Sodium Succinate 40 mg 09/02/19 22:00 Solu-Medrol - IVPUSH BID MAGI Metoprolol Succinate 100 mg 09/02/19 10:00 09/02/19 09:02 Toprol Xl - PO 100 mg DAILY [facility] Administration Zinc Sulfate 220 mg 09/01/19 13:45 09/02/19 09:02 Orazinc - PO 220 mg BID MAGI Administration Laboratory Results - last 24 hr 09/01/19 09/02/19 09/02/19 10:42 07:15 07:15 WBC 16.6 H RBC 4.15 Hgb 12.6 Hct 38.3 D MCV 92.3 MCH 30.4 MCHC 33.0 RDW 14.0 Plt Count 489 H D MPV 7.3 L Absolute Neuts (auto) 15.5 H Neutrophils % 93.1 H Neutrophils % (Manual) 78.6 Band Neutrophils % 0.0 Lymphocytes % 4.1 L D Lymphocytes % (Manual) 17.3 Monocytes % 2.6 L Monocytes % (Manual) 4 Eosinophils % 0.1 Eosinophils % (Manual) 0.0 Basophils % 0.1 Basophils % (Manual) 0.0 Myelocytes % (Man) 0 Promyelocytes % (Man) 0 Blast Cells % (Manual) 0 Nucleated RBC % 0 Metamyelocytes 0 Hypochromia 0 Platelet Estimate Normal Polychromasia 1+ Poikilocytosis 1+ Anisocytosis 0 Microcytosis 0 Macrocytosis 0 Forrest Cells 1+ D-Dimer Sodium 138 Potassium 4.1 Chloride 106 Carbon Dioxide 21 Anion Gap 11 BUN 24.8 H Creatinine 1.0 Est GFR (CKD-EPI)AfAm 83.77 Est GFR (CKD-EPI)NonAf 72.28 Random Glucose 126 H Calcium 8.5 Total Bilirubin 0.9 AST 118 H ALT 110 H Alkaline Phosphatase 71 LD Total 449 H Creatine Kinase 130 C-Reactive Protein 27.5 H Total Protein 8.6 H Albumin 2.2 L COVID-19 (MAYA) Not detected 09/02/19 07:15 WBC RBC Hgb Hct MCV MCH MCHC RDW Plt Count MPV Absolute Neuts (auto) Neutrophils % Neutrophils % (Manual) Band Neutrophils % Lymphocytes % Lymphocytes % (Manual) Monocytes % Monocytes % (Manual) Eosinophils % Eosinophils % (Manual) Basophils % Basophils % (Manual) Myelocytes % (Man) Promyelocytes % (Man) Blast Cells % (Manual) Nucleated RBC % Metamyelocytes Hypochromia Platelet Estimate Polychromasia Poikilocytosis Anisocytosis Microcytosis Macrocytosis Luana Cells D-Dimer 1004 H Sodium Potassium Chloride Carbon Dioxide Anion Gap BUN Creatinine Est GFR (CKD-EPI)AfAm Est GFR (CKD-EPI)NonAf Random Glucose Calcium Total Bilirubin AST ALT Alkaline Phosphatase LD Total Creatine Kinase C-Reactive Protein Total Protein Albumin COVID-19 (MAYA) S1 S2 RRR tachycardic Lungs decreased No ronchi Abd-= soft, NT trace edema A/P Sepsis Pneumonia CHF decompensation acute hypoxic respiratory failure -- COVID is negative -- but will check antibody tests to see if this is a residual effect -- left a message with Dr Eliz Medina-- [phone] -- iv antibiotics -- ct chest and head -- inflammatory markers noted Problem List - Problems (1) Acute respiratory failure with hypoxia Code(s): J96.01 - ACUTE RESPIRATORY FAILURE WITH HYPOXIA (2) Suspected 2019 novel coronavirus infection Code(s): Z20.828 - CONTACT W AND EXPOSURE TO [facility] VIRAL COMMUNICABLE DISEASES (3) Aortic valve stenosis Code(s): I35.0 - NONRHEUMATIC AORTIC (VALVE) STENOSIS (4) Atrial fibrillation Code(s): I48.91 - UNSPECIFIED ATRIAL FIBRILLATION (5) CAD (coronary artery disease) Code(s): I25.10 - ATHSCL HEART DISEASE OF [place] CORONARY ARTERY W/O ANG PCTRS (6) HTN (hypertension) Code(s): I10 - ESSENTIAL (PRIMARY) HYPERTENSION Qualifiers:
[2019-09-02] MEDS ORDERED: cefTRIAXone SODIUM 1 GM VIAL ONE (12:47)
[2019-09-02] MEDS ORDERED: DEXTROSE 5%-WATER - 50 ML IVPB ONE (12:47)
--- NOTE | 2019-09-02 12:51 | CON.PULM ---
Consult Consult Specialty:: PULMONARY Referred by:: Dr Harley Reason for Consultation:: hypoxia - History of Present Illness Chief Complaint: shortness of breath History of Present Illness: 78yo male with h/o HTN, hypercholesterolemia, paroxysmal atrial flutter, LV diastolic dysfunction, CAD s/p CABG, GERD, GI bleed who was admitted with worsening shortness of breath x 3 days. Reports fevers last week, nonproductive cough. No wheezing or chest pain. Lives with who is well. No sick contacts or recent travel. He is a remote smoker, denies history of asthma or COPD. CXR showing diffuse bilateral infiltrates. - History Source History Provided By: Patient, Medical Record Limitations to Obtaining History: Clinical Condition - Past Medical History Cardio/Vascular: Yes: HTN, Hyperlipdemia, Other Gastrointestinal: Yes: Other - Past Surgical History Past Surgical History: Yes: Valve Replacement - Alcohol/Substance Use Hx Alcohol Use: No History of Substance Use: reports: None - Smoking History Smoking history: Former smoker Have you smoked in the past 12 months: No If you are a former smoker, when did you quit?: 40 years ago - Social History Usual Living Arrangement: With Spouse ADL: Independent History of Recent Travel: No Home Medications - Allergies Allergies/Adverse Reactions: Allergies Allergy/AdvReac Type Severity Reaction Status Date / Time No Known Allergies Allergy Verified 07/19/19 10:52 - Home Medications Home Medications: Ambulatory Orders Amlodipine Besylate/Benazepril [Lotrel 5-10 mg Capsule] 1 each PO DAILY 10/17/17 Atorvastatin Ca [Lipitor] 40 mg PO HS 10/17/17 Furosemide [Lasix -] 20 mg PO ASDIR 10/17/17 Potassium Chloride [Klor-Con M20] 20 meq PO ASDIR 10/17/17 Metoprolol Succinate 100 mg PO DAILY 07/01/18 Apixaban [Eliquis -] 5 mg PO BID #60 tablet 07/08/18 Review of Systems - Review of Systems Constitutional: reports: Chills, Fever, Weakness Eyes: denies: Recent Change in Vision HENT: denies: Nasal Congestion, Throat Pain Neck: denies: Stiffness, Tenderness Cardiovascular: reports: Shortness of Breath. denies: Chest Pain, Edema, Palpitations Respiratory: reports: Cough, Exercise Intolerance, SOB on Exertion. denies: Hemoptysis, Wheezing Gastrointestinal: denies: Abdominal Pain, Nausea, Vomiting Genitourinary: denies: Dysuria, Hematuria Neurological: denies: Dizziness, Headache Physical Exam Vital Sings: Vital Signs Temperature 97.6 F 09/02/19 09:52 Pulse Rate 120 H 09/02/19 09:52 Respiratory Rate 09/02/19 09:52 Blood Pressure 110/67 09/02/19 09:52 O2 Sat by Pulse Oximetry (%) 95 09/02/19 12:06 Constitutional: Yes: Moderate Distress Eyes: Yes: Conjunctiva Clear, EOM Intact HENT: Yes: Atraumatic, Normocephalic Neck: Yes: Supple, Trachea Midline Cardiovascular: Yes: Regular Rate and Rhythm Respiratory: Yes: Diminished (decreased breath sounds at the bases) ...Clubbing: No Gastrointestinal: Yes: Normal Bowel Sounds, Soft. No: Tenderness Edema: No Labs: CBC, BMP 09/02/19 07:15 09/02/19 07:15 Imaging - Results Chest X-ray: Report Reviewed, Image Reviewed (diffuse bilateral infiltrates) Assessment/Plan Acute Hypoxic Respiratory Failure Suspect COVID19 or residual disease CAD s/p CABG LV Diastolic Dysfunction Paroxysmal Atrial Fibrillation Aortic Stenosis s/p AVR HTN Hypercholesterolemia - empiric antibiotics - recheck COVID19 serologies - send COVID19 antibodies - will change steroids to IV medrol - O2 to keep SpO2 >90% - send HIV screen - rate control - continue anticoagulation - close pulse oximetry monitoring Thank you for this consult Marvin Cortez MD
[2019-09-02] MEDS ORDERED: methylPREDNISolone NA SUCC 40 MG/1 ML VIAL IVPUSH ONE (12:52)
[2019-09-02] MEDS: CEFTRIAXONE 1 GM in DEXTROSE 5%-WATER - 50 ML IVPB SCH (12:53)
--- NOTE | 2019-09-02 16:44 | PN ---
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 He is not forgetful but he is a poor historian-- she is worried if he has any metabolic encephalopathy she strongly feels this is not psychiatric cause will consult with Neurology for weakness and ID for positive blood cultures Problem List - Problems (1) Acute respiratory failure with hypoxia Code(s): J96.01 - ACUTE RESPIRATORY FAILURE WITH HYPOXIA (2) Suspected 2019 novel coronavirus infection Code(s): Z20.828 - CONTACT W AND EXPOSURE TO OTH VIRAL COMMUNICABLE DISEASES (3) Aortic valve stenosis Code(s): I35.0 - NONRHEUMATIC AORTIC (VALVE) STENOSIS (4) Atrial fibrillation Code(s): I48.91 - UNSPECIFIED ATRIAL FIBRILLATION (5) CAD (coronary artery disease) Code(s): I25.10 - ATHSCL HEART DISEASE OF [place] CORONARY ARTERY W/O ANG PCTRS (6) HTN (hypertension) Code(s): I10 - ESSENTIAL (PRIMARY) HYPERTENSION Qualifiers:
[2019-09-02 16:46] LABS: SARS COV 2 AB TOTAL NON-REACTIVE (NONREACTIVE)
[2019-09-02] MEDS: VANCOMYCIN 1 GRAM (PRE-DOCKED) 1,000 MG/250 ML BAG IVPB SCH (17:17)
--- NOTE | 2019-09-02 21:40 | PN ---
Progress Note (short form) - Note Progress Note: ID CONSULT DICTATED RESP INSUFFICIENCY R/O IMPENDING RESP FAILURE BILATERAL GROUND GLASS INFILTRATES R/O COVID-19 ( AWARE OF NEGATIVE SWAB) +BC R/O STAPH BACTEREMIA/ PROSTHETIC VALVE ENDOCARDITIS R/O CHF LACTIC ACIDOSIS PROLONGED QT INTERVAL REPEAT COVID TESTING EMPIRIC VANCO/ CEFTRIAXONE D/C ZITHROMAX (PROLONGED QT) ECHO SPUTUM C/S, LEGIONELLA AG PROGNOSIS GUARDED
[2019-09-02] MEDS: ATORVASTATIN CA 40 MG TABLET (FP) PO SCH (22:41)
[2019-09-02] MEDS: methylPREDNISolone NA SUCC 40 MG/1 ML VIAL IVPUSH SCH (22:46)
--- NOTE | 2019-09-03 00:09 | CONS ---
DATE OF CONSULTATION: DATE OF DICTATION: 09/02/2019 INFECTIOUS DISEASE CONSULTATION HISTORY OF PRESENT ILLNESS: The patient is a 78-year-old male with a history of coronary artery disease, valvular heart disease status post aortic valve replacement, now evaluated for fever . He presented to the hospital on September 01, 2019, with a 3-day history of worsening shortness of breath and nonproductive cough. He had described fevers low grade between 99 and 100. He presented to the emergency room where he was noted to be in respiratory distress . He required placement on a nonrebreather mask. A COVID-19 swab was performed and was negative. Chest x-ray showed bilateral infiltrates. At the present time, he is out of bed to chair. He is short of breath, at rest on nonrebreather mask. He denies any chest pain. Patient lives at home with his significant other, she is well. He denies any ill contacts, no known history of exposure to Coronavirus. Blood cultures are now positive for gram-positive cocci in clusters in 1 bottle. He denies any skin lesions or skin infections. PAST MEDICAL HISTORY: Positive for coronary artery disease, hypertension, hyperlipidemia, gastroesophageal reflux, gastrointestinal bleeding, nephrolithiasis. PAST SURGICAL HISTORY: Status post coronary artery bypass graft, aortic valve replacement, bioprosthetic aortic valve replacement, left atrial appendage ligation. ALLERGIES: No known allergies. MEDICATION: Include: 1. Zithromax. 2. Ceftriaxone. 3. Albuterol. 4. Eliquis. 5. Lipitor. 6. Cardizem. 7. Toprol. 8. Lasix. 9. Dexamethasone. SOCIAL HISTORY: He is a retired irwin. He is a former smoker, lives at home with his significant other. SYSTEMS REVIEW: Neurologic: No loss of consciousness, seizure activity, focal weakness. Cardiac: Negative for chest pain or palpitations. Respiratory: As per HPI. Gastrointestinal: Negative vomiting or diarrhea. Genitourinary: Negative for urinary tract infection. LABORATORY DATA: White count 16.6, 78 neutrophils, 4 lymphocytes, 2 monocytes. Hematocrit 38.3, platelets 489, BUN 24, creatinine 1.0. Lactic acid 2.5. C-reactive protein 24. LDH 449. Total bilirubin 0.9, alkaline phosphatase 71, AST 118, ALT 110. A chest x-ray shows bilateral infiltrates. A CAT scan of the chest has been ordered. Official reading is pending, however on my review there appears to be ground glass infiltrates bilaterally with a more dense consolidation present right lower lobe and bilateral pleural effusions. PHYSICAL EXAMINATION: General: On examination, he is out of bed to chair. He is in moderate distress secondary to his breathing. Vital signs: Temperature 98.5, blood pressure 116/68, pulse 68 and regular, respirations 22 per minute. HEENT: Sclerae anicteric. Cardiovascular: Heart sounds S1, S2. Positive 2/6 pansystolic murmur. Lungs: Rales lower lung olvera bilaterally, decreased breath sounds at the bases bilaterally. Abdomen: Soft, nontender. Extremities: Negative for edema. IMPRESSION: 1. Acute respiratory distress. 2. Bilateral pneumonitis, rule out COVID-19. 3. Positive blood culture, rule out staphylococcus bacteremia/prosthetic valve endocarditis. 4. Lactic acidosis. 5. Prolonged QT interval. Despite negative COVID-19 would repeat COVID-19 swab. Await identification of blood isolate. Vancomycin empirically. Continue ceftriaxone. Obtain sputum culture, urine legionella antigen. Would hold off on Zithromax in light of prolonged QT interval. Supplemental oxygen. Prognosis is guarded. Thank you for the kind referral. TRUDY MACKENZIE M.D. MACIEJ/[id number]
[2019-09-03] MEDS: VANCOMYCIN 1 GRAM (PRE-DOCKED) 1,000 MG/250 ML BAG IVPB SCH ×2 (04:41→16:57)
[2019-09-03] MEDS ORDERED: DEXTROSE 5%-WATER - 50 ML IVPB ONE (08:47)
[2019-09-03] MEDS ORDERED: cefTRIAXone SODIUM 1 GM VIAL ONE (08:47)
[2019-09-03] MEDS: ZINC SULFATE 220 MG CAPSULE (FP) PO SCH ×2 (09:02→21:18)
[2019-09-03] MEDS: methylPREDNISolone NA SUCC 40 MG/1 ML VIAL IVPUSH SCH ×2 (09:03→21:17)
[2019-09-03] MEDS: FUROSEMIDE 40 MG/4 ML INJECTABLE VIAL IVPUSH SCH (09:03)
[2019-09-03] MEDS: ASCORBIC ACID 500 MG TABLET (FP) PO SCH (09:03)
[2019-09-03] MEDS: APIXABAN 5 MG TABLET PO SCH ×2 (09:03→21:18)
[2019-09-03] MEDS: CEFTRIAXONE 1 GM in DEXTROSE 5%-WATER - 50 ML IVPB SCH (09:11)
--- NOTE | 2019-09-03 09:14 | CON.NEURO ---
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 +subjective fevers, Tmax 99-100. Pt was seen and examined at the bedside ; chart and CT brain reviewed; he is comfortable , denies any numbness, weakness, dyarthria , dysphagia. - Past Medical History Cardio/Vascular: Yes: HTN, Hyperlipdemia, Other Gastrointestinal: Yes: Other - Past Surgical History Past Surgical History: Yes: Valve Replacement - Alcohol/Substance Use Hx Alcohol Use: No History of Substance Use: reports: None - Smoking History Smoking history: Former smoker Have you smoked in the past 12 months: No If you are a former smoker, when did you quit?: 40 years ago - Social History Usual Living Arrangement: With Spouse ADL: Independent History of Recent Travel: No Home Medications - Allergies Allergies/Adverse Reactions: Allergies Allergy/AdvReac Type Severity Reaction Status Date / Time No Known Allergies Allergy Verified 07/19/19 10:52 - Home Medications Home Medications: Ambulatory Orders Amlodipine Besylate/Benazepril [Lotrel 5-10 mg Capsule] 1 each PO DAILY 10/17/17 Atorvastatin Ca [Lipitor] 40 mg PO HS 10/17/17 Furosemide [Lasix -] 20 mg PO ASDIR 10/17/17 Potassium Chloride [Klor-Con M20] 20 meq PO ASDIR 10/17/17 Metoprolol Succinate 100 mg PO DAILY 07/01/18 Apixaban [Eliquis -] 5 mg PO BID #60 tablet 07/08/18 Review of Systems - Review of Systems Constitutional: reports: No Symptoms Eyes: reports: No Symptoms HENT: reports: No Symptoms Neck: reports: No Symptoms Endocrine: reports: No Symptoms Hematology/Lymphatic: reports: No Symptoms Psychiatric: reports: No Symptoms Physical Exam-Neuro Vital Signs: Vital Signs Temperature 98.1 F 09/03/19 05:42 Pulse Rate 126 H 09/03/19 05:42 Respiratory Rate 09/03/19 05:42 Blood Pressure 131/83 09/03/19 05:42 O2 Sat by Pulse Oximetry (%) 92 L 09/03/19 06:14 Constitutional: Yes: Well Nourished, No Distress, Calm Neck: Yes: Supple Cardiovascular: Yes: WNL Respiratory: Yes: WNL Edema: No Psychiatric: Yes: Alert, Oriented Labs: CBC, BMP 09/02/19 07:15 09/02/19 07:15 INR, PTT INR 2.95 (0.83-1.09) H 09/01/19 10:38 - Neuro Exam Level Of Consciousness: Yes: Alert, Oriented to Person, Oriented to Place Eyes: Yes: PERRLA Speech: WNL Cranial Nerves II-XII Intact: Yes Gag: Present Babinski: Absent Response to light touch: Normal Coordination: Normal: Finger to Nose (Diffuse LEs weakness) Imaging - Results Cat Scan: Report Reviewed, Image Reviewed (CT -ve) Problem List - Problems (1) Weakness Code(s): R53.1 - WEAKNESS (2) Neurologic gait dysfunction Code(s): R26.9 - UNSPECIFIED ABNORMALITIES OF GAIT AND MOBILITY (3) Acute on chronic diastolic (congestive) heart failure Code(s): I50.33 - ACUTE ON CHRONIC DIASTOLIC (CONGESTIVE) HEART FAILURE (4) Atrial flutter Code(s): I48.92 - UNSPECIFIED ATRIAL FLUTTER Qualifiers: Atrial flutter type: unspecified Qualified Code(s): I48.92 - Unspecified atrial flutter Assessment/Plan 78 year old male with history of CAD post CABG (SVG to LAD-D1), angina pectoris, diastolic LV dysfunction with chronic class 0-1 NYHA classification failure, PAF, [id number] score of 5 on DOAC (Eliquis),neurology was asked to evaluate the pt for LE weakness ; on exam , no evidence of lateralization or upper motor neuron sign ; no sensory level , varicose veins noted and generalized LE weakness; 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 endocarditis on AC ; gait dysfx and LEs weakness due to disuse muscle or deconditioning . Need PT ; monitor clinically ; ? neuropathy will obtain NCS as OP. Raman Soto MD
--- NOTE | 2019-09-03 09:31 | PN ---
Progress Note (short form) - Note Progress Note: OOB in chair, on BiPAP, states feels fine Vital Signs Temperature 98.1 F 09/03/19 05:42 Pulse Rate 126 H 09/03/19 05:42 Respiratory Rate 09/03/19 05:42 Blood Pressure 131/83 09/03/19 05:42 O2 Sat by Pulse Oximetry (%) 92 L 09/03/19 06:14 Constitutional: Yes: No Distress, Calm Neck: Yes: Supple Cardiovascular: Yes: Tachycardia, Pulse Irregular Respiratory: Yes: Regular, Diminished, On Venti-Mask, SOB, SOB on Exertion Gastrointestinal: Yes: Soft, Hypoactive Bowel Sounds Edema: No Labs: CBC, BMP 09/02/19 07:15 09/02/19 07:15 Active Medications Acetaminophen (Tylenol -) 650 mg PO Q4H PRN PRN Reason: FEVER Albuterol Sulfate (Ventolin Hfa Inhaler -) 2 puff IH Q4H PRN PRN Reason: SHORT OF BREATH/WHEEZING Apixaban (Eliquis -) 5 mg PO BID [facility] Last Admin: 09/03/19 09:03 Dose: 5 mg Documented by: Ascorbic Acid (Vitamin C -) 500 mg PO DAILY [facility] Last Admin: 09/03/19 09:03 Dose: 500 mg Documented by: Atorvastatin Calcium (Lipitor -) 40 mg PO HS [facility] Last Admin: 09/02/19 22:41 Dose: 40 mg Documented by: Diltiazem HCl (Cardizem Cd -) 120 mg PO DAILY [facility] Last Admin: 09/03/19 09:03 Dose: 120 mg Documented by: Furosemide (Lasix Injection -) 40 mg IVPUSH DAILY [facility] Last Admin: 09/03/19 09:03 Dose: 40 mg Documented by: Famotidine/Sodium Chloride (Pepcid 20 Mg Premixed Ivpb -) 20 mg in 50 mls @ 100 mls/hr IVPB BID [facility] Last Admin: 09/02/19 22:46 Dose: Not Given Documented by: Ceftriaxone Sodium 1 gm/ (Dextrose) 50 mls @ 100 mls/hr IVPB DAILY [facility] Last Admin: 09/03/19 09:11 Dose: 100 mls/hr Documented by: Vancomycin HCl (Vancomycin (Pre-Docked)) 1,000 mg in 250 mls @ 166.667 mls/hr IVPB Q12H [facility]; Protocol Last Admin: 09/03/19 04:41 Dose: Not Given Documented by: Methylprednisolone Sodium Succinate (Solu-Medrol -) 40 mg IVPUSH BID [facility] Last Admin: 09/03/19 09:03 Dose: 40 mg Documented by: Metoprolol Succinate (Toprol Xl -) 100 mg PO DAILY [facility] Last Admin: 09/03/19 09:02 Dose: 100 mg Documented by: Zinc Sulfate (Orazinc -) 220 mg PO BID [facility] Last Admin: 09/03/19 09:02 Dose: 220 mg Documented by: - ....Imaging EKG: Report Reviewed (Tele: NSR) Problem List - Problems (1) Acute respiratory failure with hypoxia Code(s): J96.01 - ACUTE RESPIRATORY FAILURE WITH HYPOXIA (2) Suspected 2019 novel coronavirus infection Code(s): Z20.828 - CONTACT W AND EXPOSURE TO [facility] VIRAL COMMUNICABLE DISEASES (3) Acute on chronic diastolic (congestive) heart failure Code(s): I50.33 - ACUTE ON CHRONIC DIASTOLIC (CONGESTIVE) HEART FAILURE Assessment/Plan Assessment/Plan - Problems (1) CAD (coronary artery disease) Code(s): I25.10 - ATHSCL HEART DISEASE OF [place] CORONARY ARTERY W/O ANG PCTRS (2) Hx of CABG Code(s): Z95.1 - PRESENCE OF AORTOCORONARY BYPASS GRAFT (3) S/P AVR (aortic valve replacement) Code(s): Z95.2 - PRESENCE OF PROSTHETIC HEART VALVE (4) S/P left atrial appendage ligation Code(s): Z98.890 - OTHER SPECIFIED POSTPROCEDURAL STATES (5) Aortic valve stenosis Code(s): I35.0 - NONRHEUMATIC AORTIC (VALVE) STENOSIS (6) Atrial fibrillation Code(s): I48.91 - UNSPECIFIED ATRIAL FIBRILLATION (7) HTN (hypertension) Code(s): I10 - ESSENTIAL (PRIMARY) HYPERTENSION Qualifiers: Hypertension type: essential hypertension Qualified Code(s): I10 - Essential (primary) hypertension (8) Hypercholesterolemia Code(s): E78.00 - PURE HYPERCHOLESTEROLEMIA, UNSPECIFIED (9) GERD (gastroesophageal reflux disease) Code(s): K21.9 - GASTRO-ESOPHAGEAL REFLUX DISEASE WITHOUT ESOPHAGITIS (10) Hiatal hernia Code(s): K44.9 - DIAPHRAGMATIC HERNIA WITHOUT OBSTRUCTION OR GANGRENE (11) GI bleed Code(s): K92.2 - GASTROINTESTINAL HEMORRHAGE, UNSPECIFIED Qualifiers: GI bleed type/associated pathology: unspecified gastrointestinal hemorrhage type Qualified Code(s): K92.2 - Gastrointestinal hemorrhage, unspecified Assessment/Plan Echocardiography performed October 12, 2018 revealed mild degree of concentric left ventricular hypertrophy with normal left ventricular systolic function and estimated LVEF between 65-70%, mild left atrial dilatation, normal right ventricular size and systolic function, aortic valve bioprosthesis with no aor tic valve insufficiency, moderately dilated ascending aorta, mild thickening of the mitral valve leaflets with mild mitral valve regurgitation, mild to moderate tricuspid valve regurgitation with calculated RVSP of 42 mmHg. 1. Acute hypoxic respiratory failure ruled out COVID 19 2. Acute on chronic diastolic heart failure 3. Recurrent paroxysmal aflutter with rapid ventricular response [id number] score of 5 on DOAC (Eliquis) 4. CAD, CABG, angina pectoris 5. HTN 6. Hypercholesterolemia 7. Aortic valve stenosis s/p AVR (bioprosthesis), LA appendage ligation 8. GERD and hiatal hernia, h/o rectal bleed post polypectomy -gr + cocci PLAN: 1. Empiric abx per C&S, d/c IV steroids with GI protection, O2 to maintain saO2>90%, COVID 19 PCR negative 2-Echo when feasible, if bacteremia (staph), will need to R/O Endocarditis 3. Ruled out for DE, Check fasting lipid levels, reviewed office notes 4. Continue Metoprolol XL 100 qd, Prinivil 10 qd, change Norvasc 5 qd to Cardizem CD 120 qd and Atorvastatin 40 qd as hemodynamics tolerate 5. Continue Eliquis 5 mg BID for elevated d-dimer, IV diuresis and monitor diuretic response, renal fxn and electrolytes 6. F/u as outpatient with Dr. Ang
[2019-09-03] MEDS: FAMOTIDINE 20 MG/50 ML IVPB 20 MG/50 ML MG IVPB SCH ×2 (10:08→21:17)
--- NOTE | 2019-09-03 10:32 | PN ---
Progress Note, Physician History of Present Illness: PULMONARY ALERT,COMFORTABLE OOB-CHAIR ON HFOT,SAT 94% - Current Medication List Current Medications: Active Medications Acetaminophen (Tylenol -) 650 mg PO Q4H PRN PRN Reason: FEVER Albuterol Sulfate (Ventolin Hfa Inhaler -) 2 puff IH Q4H PRN PRN Reason: SHORT OF BREATH/WHEEZING Apixaban (Eliquis -) 5 mg PO BID [facility] Last Admin: 09/03/19 09:03 Dose: 5 mg Documented by: Ascorbic Acid (Vitamin C -) 500 mg PO DAILY [facility] Last Admin: 09/03/19 09:03 Dose: 500 mg Documented by: Atorvastatin Calcium (Lipitor -) 40 mg PO HS [facility] Last Admin: 09/02/19 22:41 Dose: 40 mg Documented by: Diltiazem HCl (Cardizem Cd -) 120 mg PO DAILY [facility] Last Admin: 09/03/19 09:03 Dose: 120 mg Documented by: Furosemide (Lasix Injection -) 40 mg IVPUSH DAILY [facility] Last Admin: 09/03/19 09:03 Dose: 40 mg Documented by: Famotidine/Sodium Chloride (Pepcid 20 Mg Premixed Ivpb -) 20 mg in 50 mls @ 100 mls/hr IVPB BID [facility] Last Admin: 09/03/19 10:08 Dose: 100 mls/hr Documented by: Ceftriaxone Sodium 1 gm/ (Dextrose) 50 mls @ 100 mls/hr IVPB DAILY [facility] Last Admin: 09/03/19 09:11 Dose: 100 mls/hr Documented by: Vancomycin HCl (Vancomycin (Pre-Docked)) 1,000 mg in 250 mls @ 166.667 mls/hr IVPB Q12H [facility]; Protocol Last Admin: 09/03/19 04:41 Dose: Not Given Documented by: Methylprednisolone Sodium Succinate (Solu-Medrol -) 40 mg IVPUSH BID [facility] Last Admin: 09/03/19 09:03 Dose: 40 mg Documented by: Metoprolol Succinate (Toprol Xl -) 100 mg PO DAILY [facility] Last Admin: 09/03/19 09:02 Dose: 100 mg Documented by: Zinc Sulfate (Orazinc -) 220 mg PO BID [facility] Last Admin: 09/03/19 09:02 Dose: 220 mg Documented by: - Objective Vital Signs: Vital Signs Temperature 98.1 F 09/03/19 05:42 Pulse Rate 126 H 09/03/19 05:42 Respiratory Rate 20 09/03/19 05:42 Blood Pressure 131/83 09/03/19 05:42 O2 Sat by Pulse Oximetry (%) 92 L 09/03/19 06:14 Constitutional: Yes: Well Nourished, Calm Eyes: Yes: WNL HENT: Yes: WNL Neck: Yes: WNL Cardiovascular: Yes: Regular Rate and Rhythm, S1, S2 Respiratory: Yes: Rales (FEW CRACKLES) Gastrointestinal: Yes: Normal Bowel Sounds, Soft Extremities: Yes: WNL Edema: No Labs: CBC, BMP 09/02/19 07:15 09/02/19 07:15 INR, PTT INR 2.95 (0.83-1.09) H 09/01/19 10:38 Laboratory Tests 09/01/19 09/01/19 09/02/19 10:38 11:08 07:15 D-Dimer Lactic Acid 2.5 H* Ferritin 1405.0 H LD Total 449 H C-Reactive Protein 27.5 H 09/02/19 07:15 D-Dimer 1004 H Lactic Acid Ferritin LD Total C-Reactive Protein Problem List - Problems (1) Acute on chronic diastolic (congestive) heart failure Code(s): I50.33 - ACUTE ON CHRONIC DIASTOLIC (CONGESTIVE) HEART FAILURE (2) Acute respiratory failure with hypoxia Code(s): J96.01 - ACUTE RESPIRATORY FAILURE WITH HYPOXIA (3) Suspected 2019 novel coronavirus infection Code(s): Z20.828 - CONTACT W AND EXPOSURE TO [facility] VIRAL COMMUNICABLE DISEASES (4) Aortic valve stenosis Code(s): I35.0 - NONRHEUMATIC AORTIC (VALVE) STENOSIS (5) Atrial fibrillation Code(s): I48.91 - UNSPECIFIED ATRIAL FIBRILLATION (6) CAD (coronary artery disease) Code(s): I25.10 - ATHSCL HEART DISEASE OF [place] CORONARY ARTERY W/O ANG PCTRS (7) HTN (hypertension) Code(s): I10 - ESSENTIAL (PRIMARY) HYPERTENSION Qualifiers: Assessment/Plan Assessment/Plan Acute Hypoxic Respiratory Failure Suspect COVID19 or residual disease CAD s/p CABG LV Diastolic Dysfunction Paroxysmal Atrial Fibrillation Aortic Stenosis s/p AVR HTN Hypercholesterolemia - empiric antibiotics - COVID19 PCR negative - COVID19 antibodies negative - will change steroids to IV medrol - O2 to keep SpO2 >90% - send HIV screen - rate control - anticoagulation - pulse oximetry monitoring - monitor inflammatory markers DR DAVIS
--- NOTE | 2019-09-03 11:59 | PN ---
Progress Note, Physician History of Present Illness: pt seen/ examined today with Dr. Reilly Chart is reviewed awake mood not very cooperative stable on high flow no complains covd x1 - refuses second tried to convince to get it done ct chest reviewed with Dr. Reilly also - Current Medication List Current Medications: Active Medications Acetaminophen (Tylenol -) 650 mg PO Q4H PRN PRN Reason: FEVER Albuterol Sulfate (Ventolin Hfa Inhaler -) 2 puff IH Q4H PRN PRN Reason: SHORT OF BREATH/WHEEZING Apixaban (Eliquis -) 5 mg PO BID [facility] Last Admin: 09/03/19 09:03 Dose: 5 mg Documented by: Ascorbic Acid (Vitamin C -) 500 mg PO DAILY [facility] Last Admin: 09/03/19 09:03 Dose: 500 mg Documented by: Atorvastatin Calcium (Lipitor -) 40 mg PO HS [facility] Last Admin: 09/02/19 22:41 Dose: 40 mg Documented by: Diltiazem HCl (Cardizem Cd -) 120 mg PO DAILY [facility] Last Admin: 09/03/19 09:03 Dose: 120 mg Documented by: Furosemide (Lasix Injection -) 40 mg IVPUSH DAILY [facility] Last Admin: 09/03/19 09:03 Dose: 40 mg Documented by: Famotidine/Sodium Chloride (Pepcid 20 Mg Premixed Ivpb -) 20 mg in 50 mls @ 100 mls/hr IVPB BID [facility] Last Admin: 09/03/19 10:08 Dose: 100 mls/hr Documented by: Ceftriaxone Sodium 1 gm/ (Dextrose) 50 mls @ 100 mls/hr IVPB DAILY [facility] Last Admin: 09/03/19 09:11 Dose: 100 mls/hr Documented by: Vancomycin HCl (Vancomycin (Pre-Docked)) 1,000 mg in 250 mls @ 166.667 mls/hr IVPB Q12H [facility]; Protocol Last Admin: 09/03/19 04:41 Dose: Not Given Documented by: Methylprednisolone Sodium Succinate (Solu-Medrol -) 40 mg IVPUSH BID [facility] Last Admin: 09/03/19 09:03 Dose: 40 mg Documented by: Metoprolol Succinate (Toprol Xl -) 100 mg PO DAILY [facility] Last Admin: 09/03/19 09:02 Dose: 100 mg Documented by: Zinc Sulfate (Orazinc -) 220 mg PO BID [facility] Last Admin: 09/03/19 09:02 Dose: 220 mg Documented by: - Objective Vital Signs: Vital Signs Temperature 98.1 F 09/03/19 05:42 Pulse Rate 126 H 09/03/19 05:42 Respiratory Rate 09/03/19 05:42 Blood Pressure 131/83 09/03/19 05:42 O2 Sat by Pulse Oximetry (%) 92 L 09/03/19 06:14 Constitutional: Yes: No Distress Eyes: Yes: Conjunctiva Clear Neck: Yes: Supple Cardiovascular: Yes: Regular Rate and Rhythm Respiratory: Yes: Diminished Gastrointestinal: Yes: Soft Edema: No Neurological: Yes: Alert Psychiatric: Yes: Alert Labs: CBC, BMP 09/02/19 07:15 09/02/19 07:15 INR, PTT INR 2.95 (0.83-1.09) H 09/01/19 10:38 - ....Imaging Cat Scan: Report Reviewed Problem List - Problems (1) Acute on chronic diastolic (congestive) heart failure Code(s): I50.33 - ACUTE ON CHRONIC DIASTOLIC (CONGESTIVE) HEART FAILURE (2) Acute respiratory failure with hypoxia Code(s): J96.01 - ACUTE RESPIRATORY FAILURE WITH HYPOXIA (3) Suspected 2019 novel coronavirus infection Code(s): Z20.828 - CONTACT W AND EXPOSURE TO [facility] VIRAL COMMUNICABLE DISEASES (4) Aortic aneurysm Code(s): I71.9 - AORTIC ANEURYSM OF UNSPECIFIED SITE, WITHOUT RUPTURE (5) Atrial fibrillation Code(s): I48.91 - UNSPECIFIED ATRIAL FIBRILLATION (6) Aortic aneurysm Code(s): I71.9 - AORTIC ANEURYSM OF UNSPECIFIED SITE, WITHOUT RUPTURE (7) History of depression Code(s): Z86.59 - PERSONAL HISTORY OF OTHER MENTAL AND BEHAVIORAL DISORDERS (8) Hx of CABG Code(s): Z95.1 - PRESENCE OF AORTOCORONARY BYPASS GRAFT (9) S/P AVR (aortic valve replacement) Code(s): Z95.2 - PRESENCE OF PROSTHETIC HEART VALVE Assessment/Plan Meds reviewed Continue same repeat covid if pt allows blood culture + on e bottle - staph coog -ve Prelim Will follow Echo today D/W RN also
--- NOTE | 2019-09-03 12:19 | PN ---
Progress Note, Physician History of Present Illness: SEATED IN BED NO COMPLAINTS DENIES CHEST PAIN/ DYSPNEA APPEARS COMFORTABLE ON HIGH FLOW O2 AFEBRILE , ELEVATED WBC ON STEROIDS REFUSED REPEAT COVID-19 SWAB BC SCN X [address] CHEST FINDINGS NOTED - Current Medication List Current Medications: Active Medications Acetaminophen (Tylenol -) 650 mg PO Q4H PRN PRN Reason: FEVER Albuterol Sulfate (Ventolin Hfa Inhaler -) 2 puff IH Q4H PRN PRN Reason: SHORT OF BREATH/WHEEZING Apixaban (Eliquis -) 5 mg PO BID [facility] Last Admin: 09/03/19 09:03 Dose: 5 mg Documented by: Ascorbic Acid (Vitamin C -) 500 mg PO DAILY [facility] Last Admin: 09/03/19 09:03 Dose: 500 mg Documented by: Atorvastatin Calcium (Lipitor -) 40 mg PO HS [facility] Last Admin: 09/02/19 22:41 Dose: 40 mg Documented by: Diltiazem HCl (Cardizem Cd -) 120 mg PO DAILY [facility] Last Admin: 09/03/19 09:03 Dose: 120 mg Documented by: Furosemide (Lasix Injection -) 40 mg IVPUSH DAILY [facility] Last Admin: 09/03/19 09:03 Dose: 40 mg Documented by: Famotidine/Sodium Chloride (Pepcid 20 Mg Premixed Ivpb -) 20 mg in 50 mls @ 100 mls/hr IVPB BID [facility] Last Admin: 09/03/19 10:08 Dose: 100 mls/hr Documented by: Ceftriaxone Sodium 1 gm/ (Dextrose) 50 mls @ 100 mls/hr IVPB DAILY [facility] Last Admin: 09/03/19 09:11 Dose: 100 mls/hr Documented by: Vancomycin HCl (Vancomycin (Pre-Docked)) 1,000 mg in 250 mls @ 166.667 mls/hr IVPB Q12H [facility]; Protocol Last Admin: 09/03/19 04:41 Dose: Not Given Documented by: Methylprednisolone Sodium Succinate (Solu-Medrol -) 40 mg IVPUSH BID [facility] Last Admin: 09/03/19 09:03 Dose: 40 mg Documented by: Metoprolol Succinate (Toprol Xl -) 100 mg PO DAILY [facility] Last Admin: 09/03/19 09:02 Dose: 100 mg Documented by: Zinc Sulfate (Orazinc -) 220 mg PO BID [facility] Last Admin: 09/03/19 09:02 Dose: 220 mg Documented by: - Objective Vital Signs: Vital Signs Temperature 98.1 F 09/03/19 05:42 Pulse Rate 83 09/03/19 12:01 Respiratory Rate 35 H 09/03/19 12:01 Blood Pressure 119/73 09/03/19 12:01 O2 Sat by Pulse Oximetry (%) 92 L 09/03/19 06:14 Constitutional: Yes: Well Nourished Eyes: Yes: Conjunctiva Clear Cardiovascular: Yes: Regular Rate and Rhythm, S1, S2 Respiratory: Yes: Rhonchi Gastrointestinal: Yes: Normal Bowel Sounds, Soft. No: Tenderness Edema: No Labs: CBC, BMP 09/02/19 07:15 09/02/19 07:15 INR, PTT INR 2.95 (0.83-1.09) H 09/01/19 10:38 Assessment/Plan BILATERAL PNEUMONITIS HIGH SUSPICION FOR COVID-19 IN LIGHT OF HYPOXEMIA, CT FINDINGS, AND ELEVATED INFLAMMATORY MARKINGS PT NOW AGREEABLE TO REPEAT SWAB +BC SCN X 1 BOTTLE PROSTHETIC VALVE ENDOCARDITIS LESS LIKELY ?CHF LACTIC ACIDOSIS ENCOURAGED REPEAT COVID SWAB AWAIT C/S CONTINUE CEFTRIAXONE/ VANCOMYCIN ECHOCARDIOGRAM
--- NOTE | 2019-09-03 13:50 | ECHO ---
Version: 1 Name: RAYNA DE LA TORRE Exam: Adult Echocardiogram Study Date: 09/03/2019, 11:40 AM Age: 78 Years MMode/2D Measurements & Calculations IVSd: 1.88 cm LVIDs: 2.46 cm LVIDd: 3.9 cm LVPWd: 0.98 cm LAV (MOD-bp): 54.0 ml ACS: 1.41 cm Ao root diam: 2.9 cm LVOT diam: 2.05 cm LA dimension: 3.9 cm Doppler Measurements & Calculations MV E max ignacio: 89.8 cm/sec Med E/e': 13.8 Lat E/e': 27.1 Med Peak E' Ignacio: 6.5 cm/sec Lat Peak E' Ignacio: 3.3 cm/sec MR max P.8 mmHg Ao max P.6 mmHg ITZ(I,D): 1.60 cm Ao mean P.9 mmHg LV V1 mean: 39.6 cm/sec Ao V2 max: 118.1 cm/sec LV V1 mean P.74 mmHg AI P1/2t: 468.6 msec TR max ignacio: 254.9 cm/sec TR max P.0 mmHg Procedure TDS. Patient sitting up on high flow oxygen. Left Ventricle There is moderate concentric left ventricular hypertrophy. Left ventricular systolic function is nor mal. Ejection Fraction = 50-55%. The transmitral spectral Doppler flow pattern is suggestive of restricti ve physiology. Septal motion is consistent with post-operative state. Regional wall motion abnormalitie s cannot be excluded due to limited visualization. Right Ventricle The right ventricle is normal in size and function. Atria The left atrium is mildly dilated. Mitral Valve The mitral valve is grossly normal. There is no mitral valve stenosis. There is mild mitral regurgit ation. Tricuspid Valve The tricuspid valve is normal in structure and function. There is mild tricuspid regurgitation. Aortic Valve There is a bioprosthetic aortic valve. No hemodynamically significant valvular aortic stenosis. Mild aortic regurgitation. Pulmonic Valve The pulmonic valve is not well seen, but is grossly normal. Great Vessels The aortic root is normal size. Pericardium/Pleura There is no pericardial effusion. Summary Statements Septal motion is consistent with post-operative state. Regional wall motion abnormalities cannot be excluded due to limited visualization. Left ventricular systolic function is normal. Ejection Fraction = 50-55%. There is moderate concentric left ventricular hypertrophy. The right ventricle is normal in size and function. The left atrium is mildly dilated. There is mild mitral regurgitation. There is mild tricuspid regurgitation. There is a bioprosthetic aortic valve. Mild aortic regurgitation. The transmitral spectral Doppler flow pattern is suggestive of restrictive physiology. MD Lamas *Kenyatta 09/03/2019, 1:50 PM Ordering Physician: Radha Harley Referring Physician: RADHA HARLEY Performed By: Rosemary Barr
[2019-09-03] MEDS: ATORVASTATIN CA 40 MG TABLET (FP) PO SCH (21:18)
[2019-09-04] MEDS: VANCOMYCIN 1 GRAM (PRE-DOCKED) 1,000 MG/250 ML BAG IVPB SCH (04:34)
--- NOTE | 2019-09-04 06:25 | PN ---
Progress Note (short form) - Note Progress Note: Chief Complaint: Events noted, notes reviewed, sitting in a chair at the bedside eating breakfast, continues to report persistence of dyspnea but improved, denies chest discomfort History of Present Illness: Seen and examined on telemetry. Events noted, notes reviewed, sitting in a chair at the bedside eating breakfast, continues to report persistence of dyspnea but improved, denies chest discomfort Arrhythmia/atrial fibrillation is persistent with rapid ventricular response Medications: Current Medications Generic Name Dose Route Start Last Admin Trade Name Freq PRN Reason Stop Dose Admin Acetaminophen 650 mg 09/01/19 18:17 Tylenol - PO Q4H PRN FEVER Albuterol Sulfate 2 puff 09/01/19 13:31 Ventolin Hfa Inhaler - IH Q4H PRN SHORT OF BREATH/WHEEZING Apixaban 5 mg 09/01/19 22:00 09/04/19 09:33 Eliquis - PO 5 mg BID [facility] Administration Ascorbic Acid 500 mg 09/01/19 13:45 09/04/19 09:32 Vitamin C - PO 500 mg DAILY [facility] Administration Atorvastatin Calcium 40 mg 09/01/19 22:00 09/03/19 21:18 Lipitor - PO 40 mg HS [facility] Administration Diltiazem HCl 120 mg 09/02/19 11:30 09/04/19 09:33 Cardizem Cd - PO 120 mg DAILY [facility] Administration Furosemide 40 mg 09/02/19 11:30 09/04/19 09:35 Lasix Injection - IVPUSH 40 mg DAILY [facility] Administration Famotidine/Sodium Chloride 20 mg in 50 mls @ 100 mls/hr 09/01/19 13:45 09/04/19 09:34 Pepcid 20 Mg Premixed Ivpb - IVPB 100 mls/hr BID [facility] Administration Ceftriaxone Sodium 1 gm/ 50 mls @ 100 mls/hr 09/02/19 12:45 09/04/19 10:41 Dextrose IVPB 100 mls/hr DAILY [facility] Administration Methylprednisolone Sodium Succinate 40 mg 09/02/19 22:00 09/04/19 09:33 Solu-Medrol - IVPUSH 40 mg BID [facility] Administration Metoprolol Succinate 100 mg 09/02/19 10:00 09/04/19 09:33 Toprol Xl - PO 100 mg DAILY [facility] Administration Zinc Sulfate 220 mg 09/01/19 13:45 09/04/19 09:33 Orazinc - PO 220 mg BID [facility] Administration Review of Systems Constitutional: denies Chills or Fever Respiratory: reports: Dyspnea Cardiovascular: As noted above Gastrointestinal: denies Nausea, Vomiting, Diarrhea or Constipation or Abdominal Discomfort Genitourinary: No Symptoms Reported Musculoskeletal: No Symptoms Reported Vital Signs: Last Vital Signs Temp Pulse Resp BP Pulse Ox 97.9 F 67 18 119/71 93 L 09/04/19 02:00 09/04/19 02:00 09/04/19 02:00 09/04/19 02:00 09/04/19 06:12 Intake & Output 09/01/19 09/02/19 09/03/19 09/04/19 23:59 23:59 23:59 23:59 Intake Total 850 780 Output Total 1150 1300 Balance -300 -520 Weight 150 lb 141 lb 9.6 oz Neck: Supple Negative JVD Respiratory: Diminished Breath Sounds at the Bases Cardiovascular: S1 S2 Regular Rate Rhythm Tachycardia grade 2/6 systolic ejection murmur Gastrointestinal: Soft Benign Normal Bowel Sounds Ext: Trace Edema Bilaterally Labs: CBC, BMP 09/02/19 07:15 09/02/19 07:15 Hepatic Panel Total Bilirubin 0.9 mg/dL (0.2-1) 09/02/19 07:15 AST 118 U/L (15-37) H 09/02/19 07:15 ALT 110 U/L (13-61) H 09/02/19 07:15 Alkaline Phosphatase 71 U/L (45-117) 09/02/19 07:15 Albumin 2.2 g/dl (3.4-5.0) L 09/02/19 07:15 INR, PTT INR 2.95 (0.83-1.09) H 09/01/19 10:38 Assessment/Plan ASSESSMENT: 1. Acute hypoxic respiratory failure related to bronchopneumonia with probable sepsis syndrome, coronavirus/COVID 19 highly suspected- repeat test pending 2. Acute on chronic class II-III NYHA classification LV diastolic heart failure, clinically resolving 3. CAD post CABG angina pectoris 4. Aortic valve stenosis post SAVR/bio-prosthesis- with LA appendage ligation 5. Recurrent paroxysmal atrial flutter with rapid ventricular response [id number] score of 5 on DOAC's/Eliquis, probably exacerbating the above noted congestive heart failure 6. HTN 7. Hypercholesterolemia 8. Bacteremia- endocarditis unlikely PLAN: 1. Antibiotics as per the primary and ID teams 2. Continue Toprol XL and dose titration hemodynamics permitting 3. Continue Cardizem and dose titration hemodynamics permitting 4. Continue Atorvastatin 5. Continue DOAC's/Eliquis 6. Continue diuretics with caution and close monitoring of renal function and electrolytes 7. Ideally if atrial flutter is persistent with rapid ventricular response early intervention is recommended/elective synchronized cardioversion- to be deferred at this point in view of the above noted ongoing pulmonary pathology Kate Ang MD
[2019-09-04] MEDS ORDERED: DEXTROSE 5%-WATER - 50 ML IVPB ONE (09:27)
[2019-09-04] MEDS ORDERED: cefTRIAXone SODIUM 1 GM VIAL ONE (09:27)
[2019-09-04] MEDS: ASCORBIC ACID 500 MG TABLET (FP) PO SCH (09:32)
[2019-09-04] MEDS: ZINC SULFATE 220 MG CAPSULE (FP) PO SCH ×2 (09:33→22:57)
[2019-09-04] MEDS: APIXABAN 5 MG TABLET PO SCH ×2 (09:33→22:57)
[2019-09-04] MEDS: methylPREDNISolone NA SUCC 40 MG/1 ML VIAL IVPUSH SCH ×2 (09:33→23:19)
[2019-09-04] MEDS: FAMOTIDINE 20 MG/50 ML IVPB 20 MG/50 ML MG IVPB SCH ×2 (09:34→23:19)
[2019-09-04] MEDS: FUROSEMIDE 40 MG/4 ML INJECTABLE VIAL IVPUSH SCH (09:35)
--- NOTE | 2019-09-04 10:31 | PN ---
Progress Note, Physician History of Present Illness: AWAKE, ALERT SEATED IN BED RECOGNIZED ME IMMEDIATELY NO COMPLAINTS DENIES CHEST PAIN/ DYSPNEA APPEARS COMFORTABLE ON HIGH FLOW O2 O2 SATS REPORTED 100% AFEBRILE , ELEVATED WBC ON STEROIDS REPEAT COVID-19 SWAB PENDING BC SCN X 1 BOTTLE C/W CONTAMINATION CT CHEST FINDINGS NOTED LEGIONELLA (-) - Current Medication List Current Medications: Active Medications Acetaminophen (Tylenol -) 650 mg PO Q4H PRN PRN Reason: FEVER Albuterol Sulfate (Ventolin Hfa Inhaler -) 2 puff IH Q4H PRN PRN Reason: SHORT OF BREATH/WHEEZING Apixaban (Eliquis -) 5 mg PO BID [facility] Last Admin: 09/04/19 09:33 Dose: 5 mg Documented by: Ascorbic Acid (Vitamin C -) 500 mg PO DAILY [facility] Last Admin: 09/04/19 09:32 Dose: 500 mg Documented by: Atorvastatin Calcium (Lipitor -) 40 mg PO HS [facility] Last Admin: 09/03/19 21:18 Dose: 40 mg Documented by: Diltiazem HCl (Cardizem Cd -) 120 mg PO DAILY [facility] Last Admin: 09/04/19 09:33 Dose: 120 mg Documented by: Furosemide (Lasix Injection -) 40 mg IVPUSH DAILY [facility] Last Admin: 09/04/19 09:35 Dose: 40 mg Documented by: Famotidine/Sodium Chloride (Pepcid 20 Mg Premixed Ivpb -) 20 mg in 50 mls @ 100 mls/hr IVPB BID [facility] Last Admin: 09/04/19 09:34 Dose: 100 mls/hr Documented by: Ceftriaxone Sodium 1 gm/ (Dextrose) 50 mls @ 100 mls/hr IVPB DAILY [facility] Last Admin: 09/03/19 09:11 Dose: 100 mls/hr Documented by: Vancomycin HCl (Vancomycin (Pre-Docked)) 1,000 mg in 250 mls @ 166.667 mls/hr IVPB Q12H [facility]; Protocol Last Admin: 09/04/19 04:34 Dose: 166.667 mls/hr Documented by: Methylprednisolone Sodium Succinate (Solu-Medrol -) 40 mg IVPUSH BID [facility] Last Admin: 09/04/19 09:33 Dose: 40 mg Documented by: Metoprolol Succinate (Toprol Xl -) 100 mg PO DAILY [facility] Last Admin: 09/04/19 09:33 Dose: 100 mg Documented by: Zinc Sulfate (Orazinc -) 220 mg PO BID [facility] Last Admin: 09/04/19 09:33 Dose: 220 mg Documented by: - Objective Vital Signs: Vital Signs Temperature 98.7 F 09/04/19 09:00 Pulse Rate 125 H 09/04/19 09:00 Respiratory Rate 20 09/04/19 09:00 Blood Pressure 118/62 09/04/19 09:00 O2 Sat by Pulse Oximetry (%) 100 09/04/19 09:09 Constitutional: Yes: No Distress Eyes: Yes: Conjunctiva Clear Cardiovascular: Yes: S1, S2 Respiratory: Yes: Diminished Gastrointestinal: Yes: Normal Bowel Sounds, Soft. No: Tenderness Edema: LLE: 1+, RLE: 1+ Labs: CBC, BMP 09/02/19 07:15 09/02/19 07:15 INR, PTT INR 2.95 (0.83-1.09) H 09/01/19 10:38 Assessment/Plan BILATERAL PNEUMONITIS HIGH SUSPICION FOR COVID-19 IN LIGHT OF HYPOXEMIA, CT FINDINGS, AND ELEVATED INFLAMMATORY MARKINGS REPEAT SWAB PENDING +BC SCN X 1 BOTTLE LIKELY CONTAMINANT ?CHF LACTIC ACIDOSIS ENCOURAGED REPEAT COVID SWAB AWAIT C/S CONTINUE CEFTRIAXONE ECHOCARDIOGRAM
[2019-09-04] MEDS: CEFTRIAXONE 1 GM in DEXTROSE 5%-WATER - 50 ML IVPB SCH (10:41)
--- NOTE | 2019-09-04 12:12 | PN ---
Progress Note (short form) - Note Progress Note: events noted now on high flow O2 he appears to have labored breathing Vital Signs - 24 hr 09/03/19 09/03/19 09/03/19 14:00 18:00 20:00 Temperature 97.6 F 98.2 F Pulse Rate 94 H 93 H Respiratory 20 20 Rate Blood Pressure 115/73 108/48 L O2 Sat by Pulse 94 L 96 Oximetry (%) 09/03/19 09/03/19 09/03/19 21:00 22:00 23:00 Temperature 98.5 F Pulse Rate 80 Respiratory 20 Rate Blood Pressure 110/56 L O2 Sat by Pulse 96 96 97 Oximetry (%) 09/04/19 09/04/19 09/04/19 02:00 02:41 06:00 Temperature 97.9 F 98.2 F Pulse Rate 67 95 H Respiratory 18 18 Rate Blood Pressure 119/71 119/82 O2 Sat by Pulse 98 93 L Oximetry (%) 09/04/19 09/04/19 09/04/19 06:12 09:00 09:09 Temperature 98.7 F Pulse Rate 125 H Respiratory 20 Rate Blood Pressure 118/62 O2 Sat by Pulse 93 L 100 100 Oximetry (%) Current Medications Generic Name Dose Route Start Last Admin Trade Name Freq PRN Reason Stop Dose Admin Acetaminophen 650 mg 09/01/19 18:17 Tylenol - PO Q4H PRN FEVER Albuterol Sulfate 2 puff 09/01/19 13:31 Ventolin Hfa Inhaler - IH Q4H PRN SHORT OF BREATH/WHEEZING Apixaban 5 mg 09/01/19 22:00 09/04/19 09:33 Eliquis - PO 5 mg BID [facility] Administration Ascorbic Acid 500 mg 09/01/19 13:45 09/04/19 09:32 Vitamin C - PO 500 mg DAILY [facility] Administration Atorvastatin Calcium 40 mg 09/01/19 22:00 09/03/19 21:18 Lipitor - PO 40 mg HS [facility] Administration Diltiazem HCl 120 mg 09/02/19 11:30 09/04/19 09:33 Cardizem Cd - PO 120 mg DAILY [facility] Administration Furosemide 40 mg 09/02/19 11:30 09/04/19 09:35 Lasix Injection - IVPUSH 40 mg DAILY [facility] Administration Famotidine/Sodium Chloride 20 mg in 50 mls @ 100 mls/hr 09/01/19 13:45 09/04/19 09:34 Pepcid 20 Mg Premixed Ivpb - IVPB 100 mls/hr BID [facility] Administration Ceftriaxone Sodium 1 gm/ 50 mls @ 100 mls/hr 09/02/19 12:45 09/04/19 10:41 Dextrose IVPB 100 mls/hr DAILY [facility] Administration Methylprednisolone Sodium Succinate 40 mg 09/02/19 22:00 09/04/19 09:33 Solu-Medrol - IVPUSH 40 mg BID [facility] Administration Metoprolol Succinate 100 mg 09/02/19 10:00 09/04/19 09:33 Toprol Xl - PO 100 mg DAILY [facility] Administration Zinc Sulfate 220 mg 09/01/19 13:45 09/04/19 09:33 Orazinc - PO 220 mg BID [facility] Administration S1 S2 RRR Lungs decreased breath sounds No JVD Abd- soft, NT no edema A/P acute hypoxic respiratory failure Pneumonitis r/o COVID 19 AVR- s/p bioprosthetic valve acute on chronic diastolic failure atrial flutter -- rate is now controlled -- tele currently 70-80's -- continue with antibiotics and medrol iv -- repeated 2nd COVID PCR-- results pending -- on iv lasix -- continue high flow O2 --CT chest noted Problem List - Problems (1) Acute respiratory failure with hypoxia Code(s): J96.01 - ACUTE RESPIRATORY FAILURE WITH HYPOXIA (2) Suspected 2019 novel coronavirus infection Code(s): Z20.828 - CONTACT W AND EXPOSURE TO [facility] VIRAL COMMUNICABLE DISEASES (3) Aortic valve stenosis Code(s): I35.0 - NONRHEUMATIC AORTIC (VALVE) STENOSIS (4) Atrial fibrillation Code(s): I48.91 - UNSPECIFIED ATRIAL FIBRILLATION (5) CAD (coronary artery disease) Code(s): I25.10 - ATHSCL HEART DISEASE OF [place] CORONARY ARTERY W/O ANG PCTRS (6) HTN (hypertension) Code(s): I10 - ESSENTIAL (PRIMARY) HYPERTENSION Qualifiers:
--- NOTE | 2019-09-04 14:40 | PN ---
Progress Note (short form) - Note Progress Note: Reports breathing is slowly improving on HFOT. Less SOB and cough. No acute events overnight. Intake & Output 09/01/19 09/02/19 09/03/19 09/04/19 23:59 23:59 23:59 23:59 Intake Total 209 855 7120 Output Total 1150 1300 Balance -300 -520 1070 Weight 150 lb 141 lb 9.6 oz Last Vital Signs Temp Pulse Resp BP Pulse Ox 97.9 F 83 20 124/73 95 09/04/19 14:07 09/04/19 14:07 09/04/19 14:07 09/04/19 14:07 09/04/19 14:07 Active Medications Acetaminophen (Tylenol -) 650 mg PO Q4H PRN PRN Reason: FEVER Albuterol Sulfate (Ventolin Hfa Inhaler -) 2 puff IH Q4H PRN PRN Reason: SHORT OF BREATH/WHEEZING Apixaban (Eliquis -) 5 mg PO BID [facility] Last Admin: 09/04/19 09:33 Dose: 5 mg Documented by: Ascorbic Acid (Vitamin C -) 500 mg PO DAILY [facility] Last Admin: 09/04/19 09:32 Dose: 500 mg Documented by: Atorvastatin Calcium (Lipitor -) 40 mg PO HS [facility] Last Admin: 09/03/19 21:18 Dose: 40 mg Documented by: Diltiazem HCl (Cardizem Cd -) 120 mg PO DAILY [facility] Last Admin: 09/04/19 09:33 Dose: 120 mg Documented by: Furosemide (Lasix Injection -) 40 mg IVPUSH DAILY [facility] Last Admin: 09/04/19 09:35 Dose: 40 mg Documented by: Famotidine/Sodium Chloride (Pepcid 20 Mg Premixed Ivpb -) 20 mg in 50 mls @ 100 mls/hr IVPB BID [facility] Last Admin: 09/04/19 09:34 Dose: 100 mls/hr Documented by: Ceftriaxone Sodium 1 gm/ (Dextrose) 50 mls @ 100 mls/hr IVPB DAILY [facility] Last Admin: 09/04/19 10:41 Dose: 100 mls/hr Documented by: Methylprednisolone Sodium Succinate (Solu-Medrol -) 40 mg IVPUSH BID [facility] Last Admin: 09/04/19 09:33 Dose: 40 mg Documented by: Metoprolol Succinate (Toprol Xl -) 100 mg PO DAILY [facility] Last Admin: 09/04/19 09:33 Dose: 100 mg Documented by: Zinc Sulfate (Orazinc -) 220 mg PO BID [facility] Last Admin: 09/04/19 09:33 Dose: 220 mg Documented by: Constitutional: Yes: Mildly tachypneic at rest Eyes: Yes: WNL HENT: Yes: WNL Neck: Yes: WNL Cardiovascular: Yes: Regular Rate and Rhythm, S1, S2 Respiratory: Yes: HFOT, bilateral rhonchi and Rales Gastrointestinal: Yes: Normal Bowel Sounds, Soft Extremities: Yes: WNL Edema: No Labs: Problem List - Problems (1) Acute on chronic diastolic (congestive) heart failure Code(s): I50.33 - ACUTE ON CHRONIC DIASTOLIC (CONGESTIVE) HEART FAILURE (2) Acute respiratory failure with hypoxia Code(s): J96.01 - ACUTE RESPIRATORY FAILURE WITH HYPOXIA (3) Suspected 2019 novel coronavirus infection Code(s): Z20.828 - CONTACT W AND EXPOSURE TO [facility] VIRAL COMMUNICABLE DISEASES (4) Aortic valve stenosis Code(s): I35.0 - NONRHEUMATIC AORTIC (VALVE) STENOSIS (5) Atrial fibrillation Code(s): I48.91 - UNSPECIFIED ATRIAL FIBRILLATION (6) CAD (coronary artery disease) Code(s): I25.10 - ATHSCL HEART DISEASE OF [place] CORONARY ARTERY W/O ANG PCTRS (7) HTN (hypertension) Code(s): I10 - ESSENTIAL (PRIMARY) HYPERTENSION Qualifiers: Assessment/Plan Acute Hypoxic Respiratory Failure Suspect COVID19 or residual disease CAD s/p CABG LV Diastolic Dysfunction Paroxysmal Atrial Fibrillation Aortic Stenosis s/p AVR HTN Hypercholesterolemia - empiric antibiotics - IV medrol - O2 to keep SpO2 >90% - rate control - anticoagulation - pulse oximetry monitoring - monitor inflammatory markers Dr Gonzalez
[2019-09-04] MEDS: ATORVASTATIN CA 40 MG TABLET (FP) PO SCH (22:57)
[2019-09-05] MEDS ORDERED: METOPROLOL TARTRATE 5 MG/5 ML VIAL IVPUSH ONE (02:08)
[2019-09-05] MEDS ORDERED: ACETAMINOPHEN 650 MG SUPP.RECT RC ONE (04:15)
--- NOTE | 2019-09-05 06:34 | PN ---
Progress Note (short form) - Note Progress Note: Chief Complaint: Events noted, notes reviewed, confusion and disorientation, currently in bed in wrist restraints, atrial flutter is persistent with periods of rapid ventricular response History of Present Illness: Seen and examined on telemetry. Events noted, notes reviewed, confusion and disorientation, currently in bed in wrist restraints, atrial flutter is persistent with periods of rapid ventricular response Historically atrial flutter is harder to rate control; ideally as outlined in the prior notes cardioversion is to be performed pending improvement of his respiratory status and now his neurological status Patient has known history of clinical depression and was recently hospitalized, recommend psychiatry evaluation Medications: Current Medications Generic Name Dose Route Start Last Admin Trade Name Freq PRN Reason Stop Dose Admin Acetaminophen 650 mg 09/01/19 18:17 Tylenol - PO Q4H PRN FEVER Albuterol Sulfate 2 puff 09/01/19 13:31 Ventolin Hfa Inhaler - IH Q4H PRN SHORT OF BREATH/WHEEZING Apixaban 5 mg 09/01/19 22:00 09/04/19 22:57 Eliquis - PO 5 mg BID [facility] Administration Ascorbic Acid 500 mg 09/01/19 13:45 09/04/19 09:32 Vitamin C - PO 500 mg DAILY [facility] Administration Atorvastatin Calcium 40 mg 09/01/19 22:00 09/04/19 22:57 Lipitor - PO 40 mg HS [facility] Administration Diltiazem HCl 120 mg 09/02/19 11:30 09/04/19 09:33 Cardizem Cd - PO 120 mg DAILY [facility] Administration Furosemide 40 mg 09/02/19 11:30 09/04/19 09:35 Lasix Injection - IVPUSH 40 mg DAILY [facility] Administration Famotidine/Sodium Chloride 20 mg in 50 mls @ 100 mls/hr 09/01/19 13:45 09/04/19 23:19 Pepcid 20 Mg Premixed Ivpb - IVPB 100 mls/hr BID [facility] Administration Ceftriaxone Sodium 1 gm/ 50 mls @ 100 mls/hr 09/02/19 12:45 09/04/19 10:41 Dextrose IVPB 100 mls/hr DAILY [facility] Administration Methylprednisolone Sodium Succinate 40 mg 09/02/19 22:00 09/04/19 23:19 Solu-Medrol - IVPUSH 40 mg BID [facility] Administration Metoprolol Succinate 100 mg 09/02/19 10:00 09/04/19 09:33 Toprol Xl - PO 100 mg DAILY [facility] Administration Zinc Sulfate 220 mg 09/01/19 13:45 09/04/19 22:57 Orazinc - PO 220 mg BID [facility] Administration Review of Systems Unable to obtain in view of the above noted confusion/disorientation Vital Signs: Last Vital Signs Temp Pulse Resp BP Pulse Ox 98.4 F 130 H 20 140/90 96 09/05/19 02:00 09/05/19 02:35 09/05/19 02:00 09/05/19 02:35 09/05/19 04:35 Intake & Output 09/02/19 09/03/19 09/04/19 09/05/19 23:59 23:59 23:59 23:59 Intake Total 759 841 4272 Output Total 1150 1300 Balance -300 -520 1180 Weight 141 lb 9.6 oz Neck: Supple Negative JVD Respiratory: Diminished Breath Sounds at the Bases Cardiovascular: S1 S2 Regular Rate Rhythm Tachycardia grade 2/6 systolic ejection murmur Gastrointestinal: Soft Benign Normal Bowel Sounds Ext: Trace Edema Bilaterally Labs: CBC, BMP 09/02/19 07:15 09/02/19 07:15 Hepatic Panel Total Bilirubin 0.9 mg/dL (0.2-1) 09/02/19 07:15 AST 118 U/L (15-37) H 09/02/19 07:15 ALT 110 U/L (13-61) H 09/02/19 07:15 Alkaline Phosphatase 71 U/L (45-117) 09/02/19 07:15 Albumin 2.2 g/dl (3.4-5.0) L 09/02/19 07:15 INR, PTT INR 2.95 (0.83-1.09) H 09/01/19 10:38 Assessment/Plan ASSESSMENT: 1. Altered mental status etiology of which is unclear- prior history of clinical depression and recent hospitalization 2. Acute hypoxic respiratory failure related to bronchopneumonia with probable sepsis syndrome, coronavirus/COVID 19 highly suspected- repeat test negative 3. Acute on chronic class II-III NYHA classification LV diastolic heart failure, clinically resolving 4. CAD post CABG angina pectoris 5. Aortic valve stenosis post SAVR/bio-prosthesis- with LA appendage ligation 6. Recurrent paroxysmal atrial flutter with rapid ventricular response [id number] score of 5 on DOAC's/Eliquis, probably exacerbating the above noted congestive heart failure 7. HTN 8. Hypercholesterolemia 9. Bacteremia- endocarditis unlikely PLAN: 1. Antibiotics as per the primary and ID teams 2. Continue Toprol XL and dose titration hemodynamics permitting 3. Continue Cardizem and dose titration hemodynamics permitting 4. Continue Atorvastatin 5. Continue DOAC's/Eliquis 6. Continue diuretics with caution and close monitoring of renal function and electrolytes 7. Obtain ABG, blood test and chest x-ray- evaluation of the above-noted clinical presentation 8. As outlined in yesterday's note ideally if atrial flutter is persistent with rapid ventricular response early intervention is recommended/elective synchronized cardioversion- to be deferred at this point pending improvement of his respiratory status and now his neurological status Kate Ang MD
[2019-09-05] MEDS ORDERED: cefTRIAXone SODIUM 1 GM VIAL ONE (09:07)
[2019-09-05] MEDS ORDERED: DEXTROSE 5%-WATER - 50 ML IVPB ONE (09:08)
[2019-09-05] MEDS: ASCORBIC ACID 500 MG TABLET (FP) PO SCH (09:09)
[2019-09-05] MEDS: ZINC SULFATE 220 MG CAPSULE (FP) PO SCH ×2 (09:09→22:31)
[2019-09-05] MEDS: FAMOTIDINE 20 MG/50 ML IVPB 20 MG/50 ML MG IVPB SCH ×2 (09:10→21:56)
[2019-09-05] MEDS: methylPREDNISolone NA SUCC 40 MG/1 ML VIAL IVPUSH SCH (09:10)
[2019-09-05] MEDS: FUROSEMIDE 40 MG/4 ML INJECTABLE VIAL IVPUSH SCH (09:10)
[2019-09-05] MEDS: APIXABAN 5 MG TABLET PO SCH ×2 (09:16→22:31)
[2019-09-05] MEDS: CEFTRIAXONE 1 GM in DEXTROSE 5%-WATER - 50 ML IVPB SCH (10:04)
--- NOTE | 2019-09-05 11:13 | PN ---
Progress Note, Physician History of Present Illness: PATIENT CONFUSED TODAY SEATED IN BED SL TACHYPNEIC ON HIGH FLOW O2 NO COMPLAINTS DENIES CHEST PAIN/ DYSPNEA O2 SATS REPORTED LOW 90S AFEBRILE , ELEVATED WBC ON STEROIDS NO LABS TODAY REPEAT COVID-19 SWAB NEGATIVE BC SCN X 1 BOTTLE C/W CONTAMINATION REPEAT BC NO GROWTH CT CHEST FINDINGS NOTED LEGIONELLA (-) - Current Medication List Current Medications: Active Medications Acetaminophen (Tylenol -) 650 mg PO Q4H PRN PRN Reason: FEVER Albuterol Sulfate (Ventolin Hfa Inhaler -) 2 puff IH Q4H PRN PRN Reason: SHORT OF BREATH/WHEEZING Apixaban (Eliquis -) 5 mg PO BID [facility] Last Admin: 09/05/19 09:16 Dose: 5 mg Documented by: Ascorbic Acid (Vitamin C -) 500 mg PO DAILY [facility] Last Admin: 09/05/19 09:09 Dose: 500 mg Documented by: Atorvastatin Calcium (Lipitor -) 40 mg PO HS [facility] Last Admin: 09/04/19 22:57 Dose: 40 mg Documented by: Diltiazem HCl (Cardizem Cd -) 120 mg PO DAILY [facility] Last Admin: 09/05/19 09:09 Dose: 120 mg Documented by: Furosemide (Lasix Injection -) 40 mg IVPUSH DAILY [facility] Last Admin: 09/05/19 09:10 Dose: 40 mg Documented by: Famotidine/Sodium Chloride (Pepcid 20 Mg Premixed Ivpb -) 20 mg in 50 mls @ 100 mls/hr IVPB BID [facility] Last Admin: 09/05/19 09:10 Dose: 100 mls/hr Documented by: Ceftriaxone Sodium 1 gm/ (Dextrose) 50 mls @ 100 mls/hr IVPB DAILY [facility] Last Admin: 09/05/19 10:04 Dose: 100 mls/hr Documented by: Methylprednisolone Sodium Succinate (Solu-Medrol -) 40 mg IVPUSH BID [facility] Last Admin: 09/05/19 09:10 Dose: 40 mg Documented by: Metoprolol Succinate (Toprol Xl -) 100 mg PO DAILY [facility] Last Admin: 09/05/19 09:09 Dose: 100 mg Documented by: Zinc Sulfate (Orazinc -) 220 mg PO BID [facility] Last Admin: 09/05/19 09:09 Dose: 220 mg Documented by: - Objective Vital Signs: Vital Signs Temperature 98.1 F 09/05/19 08:50 Pulse Rate 133 H 09/05/19 08:50 Respiratory Rate 20 09/05/19 09:00 Blood Pressure 148/85 09/05/19 08:50 O2 Sat by Pulse Oximetry (%) 92 L 09/05/19 09:00 Constitutional: Yes: Thin Cardiovascular: Yes: Regular Rate and Rhythm, S1, S2 Respiratory: Yes: Diminished Gastrointestinal: Yes: Normal Bowel Sounds. No: Tenderness Edema: LLE: 1+, RLE: 1+ Labs: CBC, BMP 09/02/19 07:15 09/02/19 07:15 INR, PTT INR 2.95 (0.83-1.09) H 09/01/19 10:38 Assessment/Plan BILATERAL PNEUMONITIS COVID-19 NEGATIVE X 2 +BC SCN X 1 BOTTLE LIKELY CONTAMINANT ?CHF LACTIC ACIDOSIS CONTINUE CEFTRIAXONE REPEAT LABS TODAY ECHOCARDIOGRAM NOTED
[2019-09-05 11:57] LABS: BASO % 0.2 % (0-2.0); HEMATOCRIT 33.5 % (35.4-49); LYMPH % 2.8 % (8-40); MCHC 32.9 g/dl (32.0-35.9); MEAN CELL VOLUME 91.5 fl (80-96); MEAN PLT VOLUME 7.2 fl (7.5-11.1); MONO % 1.7 % (3.8-10.2); NEUT % 95.3 % (42.8-82.8); PLATELET COUNT 389 K/MM3 (134-434); RBC 3.66 M/mm3 (4.00-5.60); RDW 14.4 % (11.9-15.9); WHITE BLOOD COUNT 14.1 K/mm3 (4.0-10.0)
[2019-09-05 12:16] LABS: ARTERIAL BLOOD GAS BASE EXCESS 0.7 mmol/L (-2-2); ARTERIAL BLOOD GAS PO2 81.7 mmHg (80-100); ARTERIAL BLOOD GAS pH 7.505 (7.350-7.450)
[2019-09-05 12:18] LABS: ALLENS TEST POSITIVE
[2019-09-05 12:18] LABS: ALBUMIN 2.1 g/dl (3.4-5.0); BILIRUBIN,TOTAL 0.6 mg/dL (0.2-1); BLOOD UREA NITROGEN 30.4 mg/dL (7-18); CALCIUM 7.6 mg/dL (8.5-10.1); POTASSIUM 3.6 mmol/L (3.5-5.1); TOT PROT 7.8 g/dl (6.4-8.2)
[2019-09-05 12:26] LABS: ANISOCYTOSIS 0; MACROCYTOSIS 0; PLATELET ESTIMATE NORMAL
--- NOTE | 2019-09-05 12:51 | PN ---
Progress Note (short form) - Note Progress Note: events noted now on high flow O2 * was pulling out his High flow O2 and roving his clothes yesterday evening- was very confused and is now on restraints * He recognizes me today * no laboured breathing Vital Signs - 24 hr 09/04/19 09/04/19 09/04/19 13:00 14:07 17:05 Temperature 97.9 F Pulse Rate 83 Respiratory 20 Rate Blood Pressure 124/73 O2 Sat by Pulse 96 95 100 Oximetry (%) 09/04/19 09/04/19 09/04/19 18:00 20:50 21:00 Temperature 97.7 F Pulse Rate 83 Respiratory 20 Rate Blood Pressure 112/66 O2 Sat by Pulse 100 95 93 L Oximetry (%) 09/04/19 09/05/19 09/05/19 22:00 00:33 02:00 Temperature 97.5 F L 98.4 F Pulse Rate 130 H 129 H Respiratory 20 20 Rate Blood Pressure 150/82 146/90 O2 Sat by Pulse 67 L 96 Oximetry (%) 09/05/19 09/05/19 09/05/19 02:35 04:35 06:00 Temperature 98.5 F Pulse Rate 130 H 132 H Respiratory 20 Rate Blood Pressure 140/90 151/81 O2 Sat by Pulse 96 98 Oximetry (%) 09/05/19 09/05/19 09/05/19 08:37 08:50 09:00 Temperature 98.1 F Pulse Rate 133 H Respiratory 20 20 Rate Blood Pressure 148/85 O2 Sat by Pulse 91 L 92 L 92 L Oximetry (%) 09/05/19 12:36 Temperature Pulse Rate Respiratory Rate Blood Pressure O2 Sat by Pulse 97 Oximetry (%) Current Medications Generic Name Dose Route Start Last Admin Trade Name Freq PRN Reason Stop Dose Admin Acetaminophen 650 mg 09/01/19 18:17 Tylenol - PO Q4H PRN FEVER Albuterol Sulfate 2 puff 09/01/19 13:31 Ventolin Hfa Inhaler - IH Q4H PRN SHORT OF BREATH/WHEEZING Apixaban 5 mg 09/01/19 22:00 09/05/19 09:16 Eliquis - PO 5 mg BID [facility] Administration Ascorbic Acid 500 mg 09/01/19 13:45 09/05/19 09:09 Vitamin C - PO 500 mg DAILY [facility] Administration Atorvastatin Calcium 40 mg 09/01/19 22:00 09/04/19 22:57 Lipitor - PO 40 mg HS [facility] Administration Clonazepam 0.25 mg 09/05/19 12:52 Klonopin - PO BID [facility]N [facility] Diltiazem HCl 120 mg 09/02/19 11:30 09/05/19 09:09 Cardizem Cd - PO 120 mg DAILY [facility] Administration Furosemide 40 mg 09/02/19 11:30 09/05/19 09:10 Lasix Injection - IVPUSH 40 mg DAILY [facility] Administration Famotidine/Sodium Chloride 20 mg in 50 mls @ 100 mls/hr 09/01/19 13:45 09/05/19 09:10 Pepcid 20 Mg Premixed Ivpb - IVPB 100 mls/hr BID [facility] Administration Ceftriaxone Sodium 1 gm/ 50 mls @ 100 mls/hr 09/02/19 12:45 09/05/19 10:04 Dextrose IVPB 100 mls/hr DAILY [facility] Administration Methylprednisolone Sodium Succinate 40 mg 09/02/19 22:00 09/05/19 09:10 Solu-Medrol - IVPUSH 40 mg BID [facility] Administration Metoprolol Succinate 100 mg 09/02/19 10:00 09/05/19 09:09 Toprol Xl - PO 100 mg DAILY [facility] Administration Zinc Sulfate 220 mg 09/01/19 13:45 09/05/19 09:09 Orazinc - PO 220 mg BID [facility] Administration Laboratory Results - last 24 hr 09/03/19 09/05/19 09/05/19 12:22 07:44 11:10 WBC 14.1 H RBC 3.66 L Hgb 11.0 L Hct 33.5 L MCV 91.5 MCH 30.0 MCHC 32.9 RDW 14.4 Plt Count 389 D MPV 7.2 L Absolute Neuts (auto) 13.4 H Neutrophils % 95.3 H Neutrophils % (Manual) 98.0 H Band Neutrophils % 0.0 Lymphocytes % 2.8 L D Lymphocytes % (Manual) 0.0 L Monocytes % 1.7 L Monocytes % (Manual) 2 L Eosinophils % 0.0 D Eosinophils % (Manual) 0.0 Basophils % 0.2 Basophils % (Manual) 0.0 Myelocytes % (Man) 0 Promyelocytes % (Man) 0 Blast Cells % (Manual) 0 Nucleated RBC % 0 Metamyelocytes 0 Hypochromia 0 Platelet Estimate Normal Polychromasia 0 Poikilocytosis 0 Anisocytosis 0 Microcytosis 0 Macrocytosis 0 Anticoagulation Therapy Puncture Site Patient Temperature ABG pH ABG pCO2 ABG pO2 ABG HCO3 ABG O2 Sat (Measured) ABG O2 Content ABG Base Excess Polo Test Patient On Oxygen O2 Delivery Device Oxygen Flow Rate Vent Mode Vent Rate Mechanical Rate PEEP Pressure Support Vent Sodium Potassium Chloride Carbon Dioxide Anion Gap BUN Creatinine Est GFR (CKD-EPI)AfAm Est GFR (CKD-EPI)NonAf POC Glucometer 132 Random Glucose Calcium Total Bilirubin AST ALT Alkaline Phosphatase Total Protein Albumin COVID-19 (MAYA) Not detected 09/05/19 09/05/19 11:10 11:58 WBC RBC Hgb Hct MCV MCH MCHC RDW Plt Count MPV Absolute Neuts (auto) Neutrophils % Neutrophils % (Manual) Band Neutrophils % Lymphocytes % Lymphocytes % (Manual) Monocytes % Monocytes % (Manual) Eosinophils % Eosinophils % (Manual) Basophils % Basophils % (Manual) Myelocytes % (Man) Promyelocytes % (Man) Blast Cells % (Manual) Nucleated RBC % Metamyelocytes Hypochromia Platelet Estimate Polychromasia Poikilocytosis Anisocytosis Microcytosis Macrocytosis Anticoagulation Therapy No Result Required. Puncture Site Right radial Patient Temperature No Result Required. ABG pH 7.505 H ABG pCO2 29.90 L ABG pO2 81.7 ABG HCO3 23.1 ABG O2 Sat (Measured) 97.0 ABG O2 Content No Result Required. ABG Base Excess 0.7 Polo Test Positive Patient On Oxygen Yes O2 Delivery Device High flow n/c Oxygen Flow Rate 90% Vent Mode No Result Required. Vent Rate No Result Required. Mechanical Rate No Result Required. PEEP No Result Required. Pressure Support Vent No Result Required. Sodium 141 Potassium 3.6 Chloride 107 Carbon Dioxide 24 Anion Gap 10 BUN 30.4 H Creatinine 1.0 Est GFR (CKD-EPI)AfAm 83.77 Est GFR (CKD-EPI)NonAf 72.28 POC Glucometer Random Glucose 184 H Calcium 7.6 L Total Bilirubin 0.6 AST 81 H ALT 215 H Alkaline Phosphatase 81 Total Protein 7.8 Albumin 2.1 L COVID-19 (MAYA) S1 S2 RRR Lungs decreased breath sounds No JVD Abd- soft, NT no edema A/P acute hypoxic respiratory failure Pneumonitis r/o COVID 19 AVR- s/p bioprosthetic valve acute on chronic diastolic failure atrial flutter -- rate is now controlled -- tele currently 70-80's -- continue with antibiotics and medrol iv -- repeated 2nd COVID PCR-- results negative but clinical picture appears to be COVID -- on iv lasix -- continue high flow O2 --CT chest noted-- ABg - does not appear to be retaining CO2 -- CXR done -- low dose klonopin prn -- psychiatry eval -- restraints to continue to prevent pulling out equipment simon Pritchett-- [phone] Problem List - Problems (1) Acute respiratory failure with hypoxia Code(s): J96.01 - ACUTE RESPIRATORY FAILURE WITH HYPOXIA (2) Suspected 2019 novel coronavirus infection Code(s): Z20.828 - CONTACT W AND EXPOSURE TO [facility] VIRAL COMMUNICABLE DISEASES (3) Aortic valve stenosis Code(s): I35.0 - NONRHEUMATIC AORTIC (VALVE) STENOSIS (4) Atrial fibrillation Code(s): I48.91 - UNSPECIFIED ATRIAL FIBRILLATION (5) CAD (coronary artery disease) Code(s): I25.10 - ATHSCL HEART DISEASE OF [place] CORONARY ARTERY W/O ANG PCTRS (6) HTN (hypertension) Code(s): I10 - ESSENTIAL (PRIMARY) HYPERTENSION Qualifiers:
[2019-09-05] MEDS ORDERED: clonazePAM 0.5 MG TABLET PO PRN (12:52)
--- NOTE | 2019-09-05 14:13 | PN ---
Progress Note (short form) - Note Progress Note: Clinically breathing appears stable on HFOT. But agitated and slightly confused today. Reports less SOB and cough. No acute events overnight. Intake & Output 09/02/19 09/03/19 09/04/19 09/05/19 23:59 23:59 23:59 23:59 Intake Total 594 260 4401 350 Output Total 1150 1300 Balance -300 -520 1180 350 Weight 141 lb 9.6 oz Last Vital Signs Temp Pulse Resp BP Pulse Ox 98.1 F 133 H 20 148/85 97 09/05/19 08:50 09/05/19 08:50 09/05/19 09:00 09/05/19 08:50 09/05/19 12:36 Active Medications Acetaminophen (Tylenol -) 650 mg PO Q4H PRN PRN Reason: FEVER Albuterol Sulfate (Ventolin Hfa Inhaler -) 2 puff IH Q4H PRN PRN Reason: SHORT OF BREATH/WHEEZING Apixaban (Eliquis -) 5 mg PO BID [facility] Last Admin: 09/05/19 09:16 Dose: 5 mg Documented by: Ascorbic Acid (Vitamin C -) 500 mg PO DAILY [facility] Last Admin: 09/05/19 09:09 Dose: 500 mg Documented by: Atorvastatin Calcium (Lipitor -) 40 mg PO HS [facility] Last Admin: 09/04/19 22:57 Dose: 40 mg Documented by: Clonazepam (Klonopin -) 0.25 mg PO BID PRN PRN Reason: ANXIETY Last Admin: 09/05/19 13:20 Dose: 0.25 mg Documented by: Diltiazem HCl (Cardizem Cd -) 120 mg PO DAILY [facility] Last Admin: 09/05/19 09:09 Dose: 120 mg Documented by: Furosemide (Lasix Injection -) 40 mg IVPUSH DAILY [facility] Last Admin: 09/05/19 09:10 Dose: 40 mg Documented by: Famotidine/Sodium Chloride (Pepcid 20 Mg Premixed Ivpb -) 20 mg in 50 mls @ 100 mls/hr IVPB BID [facility] Last Admin: 09/05/19 09:10 Dose: 100 mls/hr Documented by: Ceftriaxone Sodium 1 gm/ (Dextrose) 50 mls @ 100 mls/hr IVPB DAILY [facility] Last Admin: 09/05/19 10:04 Dose: 100 mls/hr Documented by: Methylprednisolone Sodium Succinate (Solu-Medrol -) 40 mg IVPUSH BID [facility] Last Admin: 09/05/19 09:10 Dose: 40 mg Documented by: Metoprolol Succinate (Toprol Xl -) 100 mg PO DAILY [facility] Last Admin: 09/05/19 09:09 Dose: 100 mg Documented by: Zinc Sulfate (Orazinc -) 220 mg PO BID [facility] Last Admin: 09/05/19 09:09 Dose: 220 mg Documented by: Constitutional: Yes: Mildly tachypneic at rest, agitated and mildly confused Eyes: Yes: WNL HENT: Yes: WNL Neck: Yes: WNL Cardiovascular: Yes: Regular Rate and Rhythm, S1, S2 Respiratory: Yes: HFOT, bilateral rhonchi and Rales Gastrointestinal: Yes: Normal Bowel Sounds, Soft Extremities: Yes: WNL Edema: No Labs: Laboratory Results - last 24 hr 09/03/19 09/05/19 09/05/19 12:22 07:44 11:10 WBC 14.1 H RBC 3.66 L Hgb 11.0 L Hct 33.5 L MCV 91.5 MCH 30.0 MCHC 32.9 RDW 14.4 Plt Count 389 D MPV 7.2 L Absolute Neuts (auto) 13.4 H Neutrophils % 95.3 H Neutrophils % (Manual) 98.0 H Band Neutrophils % 0.0 Lymphocytes % 2.8 L D Lymphocytes % (Manual) 0.0 L Monocytes % 1.7 L Monocytes % (Manual) 2 L Eosinophils % 0.0 D Eosinophils % (Manual) 0.0 Basophils % 0.2 Basophils % (Manual) 0.0 Myelocytes % (Man) 0 Promyelocytes % (Man) 0 Blast Cells % (Manual) 0 Nucleated RBC % 0 Metamyelocytes 0 Hypochromia 0 Platelet Estimate Normal Polychromasia 0 Poikilocytosis 0 Anisocytosis 0 Microcytosis 0 Macrocytosis 0 Anticoagulation Therapy Puncture Site Patient Temperature ABG pH ABG pCO2 ABG pO2 ABG HCO3 ABG O2 Sat (Measured) ABG O2 Content ABG Base Excess Polo Test Patient On Oxygen O2 Delivery Device Oxygen Flow Rate Vent Mode Vent Rate Mechanical Rate PEEP Pressure Support Vent Sodium Potassium Chloride Carbon Dioxide Anion Gap BUN Creatinine Est GFR (CKD-EPI)AfAm Est GFR (CKD-EPI)NonAf POC Glucometer 132 Random Glucose Calcium Total Bilirubin AST ALT Alkaline Phosphatase Total Protein Albumin COVID-19 (MAYA) Not detected 09/05/19 09/05/19 11:10 11:58 WBC RBC Hgb Hct MCV MCH MCHC RDW Plt Count MPV Absolute Neuts (auto) Neutrophils % Neutrophils % (Manual) Band Neutrophils % Lymphocytes % Lymphocytes % (Manual) Monocytes % Monocytes % (Manual) Eosinophils % Eosinophils % (Manual) Basophils % Basophils % (Manual) Myelocytes % (Man) Promyelocytes % (Man) Blast Cells % (Manual) Nucleated RBC % Metamyelocytes Hypochromia Platelet Estimate Polychromasia Poikilocytosis Anisocytosis Microcytosis Macrocytosis Anticoagulation Therapy No Result Required. Puncture Site Right radial Patient Temperature No Result Required. ABG pH 7.505 H ABG pCO2 29.90 L ABG pO2 81.7 ABG HCO3 23.1 ABG O2 Sat (Measured) 97.0 ABG O2 Content No Result Required. ABG Base Excess 0.7 Polo Test Positive Patient On Oxygen Yes O2 Delivery Device High flow n/c Oxygen Flow Rate 90% Vent Mode No Result Required. Vent Rate No Result Required. Mechanical Rate No Result Required. PEEP No Result Required. Pressure Support Vent No Result Required. Sodium 141 Potassium 3.6 Chloride 107 Carbon Dioxide 24 Anion Gap 10 BUN 30.4 H Creatinine 1.0 Est GFR (CKD-EPI)AfAm 83.77 Est GFR (CKD-EPI)NonAf 72.28 POC Glucometer Random Glucose 184 H Calcium 7.6 L Total Bilirubin 0.6 AST 81 H ALT 215 H Alkaline Phosphatase 81 Total Protein 7.8 Albumin 2.1 L COVID-19 (MAYA) Problem List - Problems (1) Acute on chronic diastolic (congestive) heart failure Code(s): I50.33 - ACUTE ON CHRONIC DIASTOLIC (CONGESTIVE) HEART FAILURE (2) Acute respiratory failure with hypoxia Code(s): J96.01 - ACUTE RESPIRATORY FAILURE WITH HYPOXIA (3) Suspected 2019 novel coronavirus infection Code(s): Z20.828 - CONTACT W AND EXPOSURE TO [facility] VIRAL COMMUNICABLE DISEASES (4) Aortic valve stenosis Code(s): I35.0 - NONRHEUMATIC AORTIC (VALVE) STENOSIS (5) Atrial fibrillation Code(s): I48.91 - UNSPECIFIED ATRIAL FIBRILLATION (6) CAD (coronary artery disease) Code(s): I25.10 - ATHSCL HEART DISEASE OF [place] CORONARY ARTERY W/O ANG PCTRS (7) HTN (hypertension) Code(s): I10 - ESSENTIAL (PRIMARY) HYPERTENSION Qualifiers: Assessment/Plan Confusion & Agitation : precipitated by steroids (?) Acute Hypoxic Respiratory Failure Suspect COVID19 or residual disease CAD s/p CABG LV Diastolic Dysfunction Paroxysmal Atrial Fibrillation Aortic Stenosis s/p AVR HTN Hypercholesterolemia - empiric antibiotics - Reduce IV medrol - O2 to keep SpO2 >90% - rate control - anticoagulation - pulse oximetry monitoring - monitor inflammatory markers Dr Gonzalez
[2019-09-05] MEDS: LORazepam 2 MG/ML SDV VIAL IVPUSH PRN (15:41)
[2019-09-05] MEDS: ATORVASTATIN CA 40 MG TABLET (FP) PO SCH (22:31)
[2019-09-06] MEDS: LORazepam 2 MG/ML SDV VIAL IVPUSH PRN (04:03)
[2019-09-06 07:41] LABS: BASO % 0.2 % (0-2.0); HEMOGLOBIN 10.1 GM/dL (11.7-16.9); LYMPH % 5.1 % (8-40); MCH 30.1 pg (25.7-33.7); MCHC 32.5 g/dl (32.0-35.9); MEAN CELL VOLUME 92.7 fl (80-96); MEAN PLT VOLUME 7.4 fl (7.5-11.1); MONO % 2.3 % (3.8-10.2); NEUT % 92.4 % (42.8-82.8); PLATELET COUNT 340 K/MM3 (134-434); RBC 3.34 M/mm3 (4.00-5.60); RDW 14.3 % (11.9-15.9); WHITE BLOOD COUNT 12.5 K/mm3 (4.0-10.0)
[2019-09-06 08:11] LABS: BLOOD UREA NITROGEN 36.3 mg/dL (7-18); CALCIUM 7.9 mg/dL (8.5-10.1); CREATININE 0.9 mg/dL (0.55-1.3); POTASSIUM 3.9 mmol/L (3.5-5.1); TOT PROT 6.9 g/dl (6.4-8.2)
[2019-09-06] MEDS ORDERED: cefTRIAXone SODIUM 1 GM VIAL ONE (09:03)
[2019-09-06] MEDS ORDERED: DEXTROSE 5%-WATER - 50 ML IVPB ONE (09:04)
[2019-09-06] MEDS: FUROSEMIDE 40 MG/4 ML INJECTABLE VIAL IVPUSH SCH (09:06)
[2019-09-06 09:07] LABS: ANISOCYTOSIS 1+; MACROCYTOSIS 1+; PLATELET ESTIMATE NORMAL
[2019-09-06] MEDS: methylPREDNISolone NA SUCC 40 MG/1 ML VIAL IVPUSH SCH (09:08)
[2019-09-06] MEDS: FAMOTIDINE 20 MG/50 ML IVPB 20 MG/50 ML MG IVPB SCH ×2 (09:09→21:03)
[2019-09-06] MEDS: ZINC SULFATE 220 MG CAPSULE (FP) PO SCH ×2 (09:10→21:03)
[2019-09-06] MEDS: APIXABAN 5 MG TABLET PO SCH ×2 (09:10→21:03)
[2019-09-06] MEDS: ASCORBIC ACID 500 MG TABLET (FP) PO SCH (09:10)
--- NOTE | 2019-09-06 09:25 | PN ---
Progress Note, Physician History of Present Illness: Confusion and disorientation, currently in bed in [place] and wrist restraints, atrial flutter is persistent with periods of rapid ventricular response Historically atrial flutter is harder to rate control; ideally as outlined in the prior notes cardioversion is to be performed pending improvement of his respiratory status and now his neurological status. Clinically breathing appears stable on HFOT. covd x 2 - refuses second Patient has known history of clinical depression and was recently hospitalized - Current Medication List Current Medications: Active Medications Acetaminophen (Tylenol -) 650 mg PO Q4H PRN PRN Reason: FEVER Albuterol Sulfate (Ventolin Hfa Inhaler -) 2 puff IH Q4H PRN PRN Reason: SHORT OF BREATH/WHEEZING Apixaban (Eliquis -) 5 mg PO BID [facility] Last Admin: 09/06/19 09:10 Dose: 5 mg Documented by: Ascorbic Acid (Vitamin C -) 500 mg PO DAILY [facility] Last Admin: 09/06/19 09:10 Dose: 500 mg Documented by: Atorvastatin Calcium (Lipitor -) 40 mg PO HS [facility] Last Admin: 09/05/19 22:31 Dose: 40 mg Documented by: Clonazepam (Klonopin -) 0.25 mg PO BID PRN PRN Reason: ANXIETY Last Admin: 09/05/19 13:20 Dose: 0.25 mg Documented by: Diltiazem HCl (Cardizem Cd -) 120 mg PO DAILY [facility] Last Admin: 09/06/19 09:10 Dose: 120 mg Documented by: Furosemide (Lasix Injection -) 40 mg IVPUSH DAILY [facility] Last Admin: 09/06/19 09:06 Dose: 40 mg Documented by: Famotidine/Sodium Chloride (Pepcid 20 Mg Premixed Ivpb -) 20 mg in 50 mls @ 100 mls/hr IVPB BID [facility] Last Admin: 09/06/19 09:09 Dose: 100 mls/hr Documented by: Ceftriaxone Sodium 1 gm/ (Dextrose) 50 mls @ 100 mls/hr IVPB DAILY [facility] Last Admin: 09/05/19 10:04 Dose: 100 mls/hr Documented by: Lorazepam (Ativan Injection -) 1 mg IVPUSH Q6H PRN PRN Reason: ANXIETY Last Admin: 09/06/19 04:03 Dose: 1 mg Documented by: Methylprednisolone Sodium Succinate (Solu-Medrol -) 40 mg IVPUSH DAILY [facility] Last Admin: 09/06/19 09:08 Dose: 40 mg Documented by: Metoprolol Succinate (Toprol Xl -) 100 mg PO DAILY [facility] Last Admin: 09/06/19 09:10 Dose: 100 mg Documented by: Zinc Sulfate (Orazinc -) 220 mg PO BID [facility] Last Admin: 09/06/19 09:10 Dose: 220 mg Documented by: - Objective Vital Signs: Vital Signs Temperature 97.6 F 09/06/19 09:05 Pulse Rate 117 H 09/06/19 09:05 Respiratory Rate 21 H 09/06/19 09:05 Blood Pressure 136/88 09/06/19 09:05 O2 Sat by Pulse Oximetry (%) 95 09/06/19 09:05 Constitutional: Yes: No Distress, Calm, Thin Cardiovascular: Yes: Pulse Irregular Respiratory: Yes: On Nasal O2 (HFOT), SOB Gastrointestinal: Yes: Normal Bowel Sounds, Soft Edema: No Neurological: Yes: Confusion Labs: CBC, BMP 09/06/19 06:16 09/06/19 06:16 INR, PTT INR 2.95 (0.83-1.09) H 09/01/19 10:38 - ....Imaging Chest X-ray: Report Reviewed (Congestion diminished) Problem List - Problems (1) Acute respiratory failure with hypoxia Code(s): J96.01 - ACUTE RESPIRATORY FAILURE WITH HYPOXIA (2) Suspected 2019 novel coronavirus infection Code(s): Z20.828 - CONTACT W AND EXPOSURE TO [facility] VIRAL COMMUNICABLE DISEASES (3) Acute on chronic diastolic (congestive) heart failure Code(s): I50.33 - ACUTE ON CHRONIC DIASTOLIC (CONGESTIVE) HEART FAILURE Assessment/Plan Assessment/Plan - Problems (1) CAD (coronary artery disease) Code(s): I25.10 - ATHSCL HEART DISEASE OF [place] CORONARY ARTERY W/O ANG PCTRS (2) Hx of CABG Code(s): Z95.1 - PRESENCE OF AORTOCORONARY BYPASS GRAFT (3) S/P AVR (aortic valve replacement) Code(s): Z95.2 - PRESENCE OF PROSTHETIC HEART VALVE (4) S/P left atrial appendage ligation Code(s): Z98.890 - OTHER SPECIFIED POSTPROCEDURAL STATES (5) Aortic valve stenosis Code(s): I35.0 - NONRHEUMATIC AORTIC (VALVE) STENOSIS (6) Atrial fibrillation Code(s): I48.91 - UNSPECIFIED ATRIAL FIBRILLATION (7) HTN (hypertension) Code(s): I10 - ESSENTIAL (PRIMARY) HYPERTENSION Qualifiers: Hypertension type: essential hypertension Qualified Code(s): I10 - Essential (primary) hypertension (8) Hypercholesterolemia Code(s): E78.00 - PURE HYPERCHOLESTEROLEMIA, UNSPECIFIED (9) GERD (gastroesophageal reflux disease) Code(s): K21.9 - GASTRO-ESOPHAGEAL REFLUX DISEASE WITHOUT ESOPHAGITIS (10) Hiatal hernia Code(s): K44.9 - DIAPHRAGMATIC HERNIA WITHOUT OBSTRUCTION OR GANGRENE (11) GI bleed Code(s): K92.2 - GASTROINTESTINAL HEMORRHAGE, UNSPECIFIED Qualifiers: GI bleed type/associated pathology: unspecified gastrointestinal hemorrhage type Qualified Code(s): K92.2 - Gastrointestinal hemorrhage, unspecified Assessment/Plan Echo 09/03/2019 Post-op septal motion, normal LVEF 50-55%, mod cLVH, normal RV size and fxn, mild LAE, mild MR, TR, bioAVR, mild AR, restrictive physiology Echocardiography October 12, 2018 revealed mild degree of concentric left ventricular hypertrophy with normal left ventricular systolic function and estimated LVEF between 65-70%, mild left atrial dilatation, normal right ventricular size and systolic function, aortic valve bioprosthesis with no aortic valve insufficiency, moderately dilated ascending aorta, mild thickening of the mitral valve leaflets with mild mitral valve regurgitation, mild to moderate tricuspid valve regurgitation with calculated RVSP of [address]: Small-moderate right and very small left effusion, pulm edema TAA 3.9 cm 1. 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 Acute hypoxic respiratory failure related to bronchopneumonia with probable sepsis syndrome, coronavirus/COVID 19 or residual disease suspected- repeat test negative 3. Acute on chronic class II-III NYHA classification LV diastolic heart failure, clinically resolving 4. CAD post CABG angina pectoris 5. Aortic valve stenosis post SAVR/bio-prosthesis- with LA appendage ligation 6. Recurrent paroxysmal atrial flutter with rapid ventricular response [id number] score of 5 on DOAC's/Eliquis, probably exacerbating the above noted congestive heart failure 7. HTN 8. Hypercholesterolemia 9. Bacteremia- endocarditis unlikely 10. GERD and hiatal hernia, h/o rectal bleed post polypectomy PLAN: 1. Empiric antibiotics, wean IV steroids with GI protection, BD, O2 to maintain saO2>90%, COVID 19 PCR negative as per the primary and ID teams 2. Continue Toprol XL 100 qd and dose titration hemodynamics permitting 3. Continue Cardizem CD 120 qd and dose titration hemodynamics permitting 4. Continue Atorvastatin 40 qd 5. Continue Eliquis 5 bid 6. Continue IV diuretics with monitoring of diuretic response, renal function and electrolytes 7. As outlined in yesterday's note ideally if atrial flutter is persistent with rapid ventricular response early intervention is recommended/elective synchronized cardioversion- to be deferred at this point pending improvement of his respiratory status and now his neurological status
[2019-09-06] MEDS: CEFTRIAXONE 1 GM in DEXTROSE 5%-WATER - 50 ML IVPB SCH (10:01)
--- NOTE | 2019-09-06 10:13 | PN ---
Progress Note, Physician History of Present Illness: pt seen/ examined Chart is reviewed awake/somewhat confused mood not very cooperative on high flow no complains covd x 2 - refuses second On restrains -- wants wrists to be freed - Current Medication List Current Medications: Active Medications Acetaminophen (Tylenol -) 650 mg PO Q4H PRN PRN Reason: FEVER Albuterol Sulfate (Ventolin Hfa Inhaler -) 2 puff IH Q4H PRN PRN Reason: SHORT OF BREATH/WHEEZING Apixaban (Eliquis -) 5 mg PO BID [facility] Last Admin: 09/06/19 09:10 Dose: 5 mg Documented by: Ascorbic Acid (Vitamin C -) 500 mg PO DAILY [facility] Last Admin: 09/06/19 09:10 Dose: 500 mg Documented by: Atorvastatin Calcium (Lipitor -) 40 mg PO HS [facility] Last Admin: 09/05/19 22:31 Dose: 40 mg Documented by: Clonazepam (Klonopin -) 0.25 mg PO BID PRN PRN Reason: ANXIETY Last Admin: 09/05/19 13:20 Dose: 0.25 mg Documented by: Diltiazem HCl (Cardizem Cd -) 120 mg PO DAILY [facility] Last Admin: 09/06/19 09:10 Dose: 120 mg Documented by: Furosemide (Lasix Injection -) 40 mg IVPUSH DAILY [facility] Last Admin: 09/06/19 09:06 Dose: 40 mg Documented by: Famotidine/Sodium Chloride (Pepcid 20 Mg Premixed Ivpb -) 20 mg in 50 mls @ 100 mls/hr IVPB BID [facility] Last Admin: 09/06/19 09:09 Dose: 100 mls/hr Documented by: Ceftriaxone Sodium 1 gm/ (Dextrose) 50 mls @ 100 mls/hr IVPB DAILY [facility] Last Admin: 09/06/19 10:01 Dose: 100 mls/hr Documented by: Lorazepam (Ativan Injection -) 1 mg IVPUSH Q6H PRN PRN Reason: ANXIETY Last Admin: 09/06/19 04:03 Dose: 1 mg Documented by: Methylprednisolone Sodium Succinate (Solu-Medrol -) 40 mg IVPUSH DAILY [facility] Last Admin: 09/06/19 09:08 Dose: 40 mg Documented by: Metoprolol Succinate (Toprol Xl -) 100 mg PO DAILY [facility] Last Admin: 09/06/19 09:10 Dose: 100 mg Documented by: Zinc Sulfate (Orazinc -) 220 mg PO BID [facility] Last Admin: 09/06/19 09:10 Dose: 220 mg Documented by: - Objective Vital Signs: Vital Signs Temperature 97.6 F 09/06/19 09:05 Pulse Rate 117 H 09/06/19 09:05 Respiratory Rate 21 H 09/06/19 09:05 Blood Pressure 136/88 09/06/19 09:05 O2 Sat by Pulse Oximetry (%) 95 09/06/19 09:05 Constitutional: Yes: Anxious Eyes: Yes: Conjunctiva Clear Neck: Yes: Supple Cardiovascular: Yes: Regular Rate and Rhythm Respiratory: Yes: Diminished Gastrointestinal: Yes: Soft Edema: No Labs: CBC, BMP 09/06/19 06:16 09/06/19 06:16 INR, PTT INR 2.95 (0.83-1.09) H 09/01/19 10:38 Problem List - Problems (1) Acute on chronic diastolic (congestive) heart failure Code(s): I50.33 - ACUTE ON CHRONIC DIASTOLIC (CONGESTIVE) HEART FAILURE (2) Acute respiratory failure with hypoxia Code(s): J96.01 - ACUTE RESPIRATORY FAILURE WITH HYPOXIA (3) Suspected 2019 novel coronavirus infection Code(s): Z20.828 - CONTACT W AND EXPOSURE TO OTH VIRAL COMMUNICABLE DISEASES (4) Aortic aneurysm Code(s): I71.9 - AORTIC ANEURYSM OF UNSPECIFIED SITE, WITHOUT RUPTURE (5) Atrial fibrillation Code(s): I48.91 - UNSPECIFIED ATRIAL FIBRILLATION (6) Aortic aneurysm Code(s): I71.9 - AORTIC ANEURYSM OF UNSPECIFIED SITE, WITHOUT RUPTURE (7) History of depression Code(s): Z86.59 - PERSONAL HISTORY OF OTHER MENTAL AND BEHAVIORAL DISORDERS (8) Hx of CABG Code(s): Z95.1 - PRESENCE OF AORTOCORONARY BYPASS GRAFT (9) S/P AVR (aortic valve replacement) Code(s): Z95.2 - PRESENCE OF PROSTHETIC HEART VALVE Assessment/Plan Meds reviewed Continue same for now Abx Will remove wrist restrains and monitor Maintain Desha for now Will follow D/W RN also.
--- NOTE | 2019-09-06 12:33 | PN ---
Progress Note, Physician History of Present Illness: PATIENT CONFUSED SEATED IN BED APPEARS COMFORTABLE ON HIGH FLOW O2 NO COMPLAINTS DENIES CHEST PAIN/ DYSPNEA O2 SATS 95-100% AFEBRILE , ELEVATED WBC ON STEROIDS REPEAT COVID-19 SWAB NEGATIVE BC SCN X 1 BOTTLE C/W CONTAMINATION REPEAT BC NO GROWTH CT CHEST FINDINGS NOTED [facility]A (-) - Current Medication List Current Medications: Active Medications Acetaminophen (Tylenol -) 650 mg PO Q4H PRN PRN Reason: FEVER Albuterol Sulfate (Ventolin Hfa Inhaler -) 2 puff IH Q4H PRN PRN Reason: SHORT OF BREATH/WHEEZING Apixaban (Eliquis -) 5 mg PO BID [facility] Last Admin: 09/06/19 09:10 Dose: 5 mg Documented by: Ascorbic Acid (Vitamin C -) 500 mg PO DAILY [facility] Last Admin: 09/06/19 09:10 Dose: 500 mg Documented by: Atorvastatin Calcium (Lipitor -) 40 mg PO HS [facility] Last Admin: 09/05/19 22:31 Dose: 40 mg Documented by: Clonazepam (Klonopin -) 0.25 mg PO BID PRN PRN Reason: ANXIETY Last Admin: 09/05/19 13:20 Dose: 0.25 mg Documented by: Diltiazem HCl (Cardizem Cd -) 120 mg PO DAILY [facility] Last Admin: 09/06/19 09:10 Dose: 120 mg Documented by: Furosemide (Lasix Injection -) 40 mg IVPUSH DAILY [facility] Last Admin: 09/06/19 09:06 Dose: 40 mg Documented by: Famotidine/Sodium Chloride (Pepcid 20 Mg Premixed Ivpb -) 20 mg in 50 mls @ 100 mls/hr IVPB BID [facility] Last Admin: 09/06/19 09:09 Dose: 100 mls/hr Documented by: Ceftriaxone Sodium 1 gm/ (Dextrose) 50 mls @ 100 mls/hr IVPB DAILY [facility] Last Admin: 09/06/19 10:01 Dose: 100 mls/hr Documented by: Lorazepam (Ativan Injection -) 1 mg IVPUSH Q6H PRN PRN Reason: ANXIETY Last Admin: 09/06/19 04:03 Dose: 1 mg Documented by: Methylprednisolone Sodium Succinate (Solu-Medrol -) 40 mg IVPUSH DAILY [facility] Last Admin: 09/06/19 09:08 Dose: 40 mg Documented by: Metoprolol Succinate (Toprol Xl -) 100 mg PO DAILY [facility] Last Admin: 09/06/19 09:10 Dose: 100 mg Documented by: Zinc Sulfate (Orazinc -) 220 mg PO BID [facility] Last Admin: 09/06/19 09:10 Dose: 220 mg Documented by: - Objective Vital Signs: Vital Signs Temperature 97.6 F 09/06/19 09:05 Pulse Rate 117 H 09/06/19 09:05 Respiratory Rate 21 H 09/06/19 09:05 Blood Pressure 136/88 09/06/19 09:05 O2 Sat by Pulse Oximetry (%) 95 09/06/19 09:05 Constitutional: Yes: No Distress Eyes: Yes: Conjunctiva Clear Cardiovascular: Yes: Regular Rate and Rhythm, S1, S2 Respiratory: Yes: Diminished Gastrointestinal: Yes: Normal Bowel Sounds, Soft. No: Tenderness Edema: No Labs: CBC, BMP 09/06/19 06:16 09/06/19 06:16 INR, PTT INR 2.95 (0.83-1.09) H 09/01/19 10:38 Assessment/Plan BILATERAL PNEUMONITIS ? ETIOLOGY COVID-19 NEGATIVE X 2 TOXIC METABOLIC ENCEPHALOPATHY +BC SCN X 1 BOTTLE LIKELY CONTAMINANT ?CHF LACTIC ACIDOSIS CONTINUE CEFTRIAXONE ECHOCARDIOGRAM NOTED
--- NOTE | 2019-09-06 13:52 | PN ---
Progress Note (short form) - Note Progress Note: spoke with son Shreyas --[phone]--today and gave a detailed discussion about his father Problem List - Problems (1) Acute respiratory failure with hypoxia Code(s): J96.01 - ACUTE RESPIRATORY FAILURE WITH HYPOXIA (2) Suspected 2019 novel coronavirus infection Code(s): Z20.828 - CONTACT W AND EXPOSURE TO [facility] VIRAL COMMUNICABLE DISEASES (3) Aortic valve stenosis Code(s): I35.0 - NONRHEUMATIC AORTIC (VALVE) STENOSIS (4) Atrial fibrillation Code(s): I48.91 - UNSPECIFIED ATRIAL FIBRILLATION (5) CAD (coronary artery disease) Code(s): I25.10 - ATHSCL HEART DISEASE OF [place] CORONARY ARTERY W/O ANG PCTRS (6) HTN (hypertension) Code(s): I10 - ESSENTIAL (PRIMARY) HYPERTENSION Qualifiers:
--- NOTE | 2019-09-06 13:56 | PN ---
Progress Note (short form) - Note Progress Note: Clinically breathing appears stable on HFOT (50L / 90% FiO2). Remains agitated and slightly confused. Reports less SOB and cough. No acute events overnight. Intake & Output 09/03/19 09/04/19 09/05/19 09/06/19 23:59 23:59 23:59 23:59 Intake Total 780 1180 720 370 Output Total 1300 Balance -520 1180 720 370 Last Vital Signs Temp Pulse Resp BP Pulse Ox 98 F 88 20 111/67 97 09/06/19 13:00 09/06/19 13:00 09/06/19 13:00 09/06/19 13:00 09/06/19 13:00 Active Medications Acetaminophen (Tylenol -) 650 mg PO Q4H PRN PRN Reason: FEVER Albuterol Sulfate (Ventolin Hfa Inhaler -) 2 puff IH Q4H PRN PRN Reason: SHORT OF BREATH/WHEEZING Apixaban (Eliquis -) 5 mg PO BID [facility] Last Admin: 09/06/19 09:10 Dose: 5 mg Documented by: Ascorbic Acid (Vitamin C -) 500 mg PO DAILY [facility] Last Admin: 09/06/19 09:10 Dose: 500 mg Documented by: Atorvastatin Calcium (Lipitor -) 40 mg PO HS [facility] Last Admin: 09/05/19 22:31 Dose: 40 mg Documented by: Clonazepam (Klonopin -) 0.25 mg PO BID PRN PRN Reason: ANXIETY Last Admin: 09/05/19 13:20 Dose: 0.25 mg Documented by: Diltiazem HCl (Cardizem Cd -) 120 mg PO DAILY [facility] Last Admin: 09/06/19 09:10 Dose: 120 mg Documented by: Furosemide (Lasix Injection -) 40 mg IVPUSH DAILY [facility] Last Admin: 09/06/19 09:06 Dose: 40 mg Documented by: Famotidine/Sodium Chloride (Pepcid 20 Mg Premixed Ivpb -) 20 mg in 50 mls @ 100 mls/hr IVPB BID [facility] Last Admin: 09/06/19 09:09 Dose: 100 mls/hr Documented by: Ceftriaxone Sodium 1 gm/ (Dextrose) 50 mls @ 100 mls/hr IVPB DAILY [facility] Last Admin: 09/06/19 10:01 Dose: 100 mls/hr Documented by: Lorazepam (Ativan Injection -) 1 mg IVPUSH Q6H PRN PRN Reason: ANXIETY Last Admin: 09/06/19 04:03 Dose: 1 mg Documented by: Methylprednisolone Sodium Succinate (Solu-Medrol -) 40 mg IVPUSH DAILY [facility] Last Admin: 09/06/19 09:08 Dose: 40 mg Documented by: Metoprolol Succinate (Toprol Xl -) 100 mg PO DAILY [facility] Last Admin: 09/06/19 09:10 Dose: 100 mg Documented by: Zinc Sulfate (Orazinc -) 220 mg PO BID [facility] Last Admin: 09/06/19 09:10 Dose: 220 mg Documented by: Constitutional: Yes: Mildly tachypneic at rest, agitated and mildly confused Eyes: Yes: WNL HENT: Yes: WNL Neck: Yes: WNL Cardiovascular: Yes: Regular Rate and Rhythm, S1, S2 Respiratory: Yes: HFOT, bilateral rhonchi and Rales Gastrointestinal: Yes: Normal Bowel Sounds, Soft Extremities: Yes: WNL Edema: No Labs: Laboratory Results - last 24 hr 09/06/19 09/06/19 09/06/19 06:16 06:16 06:16 WBC 12.5 H RBC 3.34 L Hgb 10.1 L Hct 31.0 L MCV 92.7 MCH 30.1 MCHC 32.5 RDW 14.3 Plt Count 340 MPV 7.4 L Absolute Neuts (auto) 11.6 H Neutrophils % 92.4 H Neutrophils % (Manual) 90.0 H Band Neutrophils % 0.0 Lymphocytes % 5.1 L D Lymphocytes % (Manual) 7.0 L D Monocytes % 2.3 L Monocytes % (Manual) 3 L Eosinophils % 0.0 Eosinophils % (Manual) 0.0 Basophils % 0.2 Basophils % (Manual) 0.0 Myelocytes % (Man) 0 Promyelocytes % (Man) 0 Blast Cells % (Manual) 0 Nucleated RBC % 0 Metamyelocytes 0 Hypochromia 1+ Platelet Estimate Normal Polychromasia 0 Poikilocytosis 1+ Anisocytosis 1+ Microcytosis 1+ Macrocytosis 1+ Schistocytes 1+ D-Dimer 658 H Sodium 144 Potassium 3.9 Chloride 110 H Carbon Dioxide 32 Anion Gap 2 L BUN 36.3 H Creatinine 0.9 Est GFR (CKD-EPI)AfAm 95.15 Est GFR (CKD-EPI)NonAf 82.09 Random Glucose 102 Calcium 7.9 L Total Bilirubin 1.0 AST 47 H ALT 161 H Alkaline Phosphatase 65 C-Reactive Protein 3.9 H Total Protein 6.9 Albumin 2.0 L Problem List - Problems (1) Acute on chronic diastolic (congestive) heart failure Code(s): I50.33 - ACUTE ON CHRONIC DIASTOLIC (CONGESTIVE) HEART FAILURE (2) Acute respiratory failure with hypoxia Code(s): J96.01 - ACUTE RESPIRATORY FAILURE WITH HYPOXIA (3) Suspected 2019 novel coronavirus infection Code(s): Z20.828 - CONTACT W AND EXPOSURE TO [facility] VIRAL COMMUNICABLE DISEASES (4) Aortic valve stenosis Code(s): I35.0 - NONRHEUMATIC AORTIC (VALVE) STENOSIS (5) Atrial fibrillation Code(s): I48.91 - UNSPECIFIED ATRIAL FIBRILLATION (6) CAD (coronary artery disease) Code(s): I25.10 - ATHSCL HEART DISEASE OF [place] CORONARY ARTERY W/O ANG PCTRS (7) HTN (hypertension) Code(s): I10 - ESSENTIAL (PRIMARY) HYPERTENSION Qualifiers: Assessment/Plan Confusion & Agitation : precipitated by steroids (?) Acute Hypoxic Respiratory Failure Suspect COVID19 or residual disease CAD s/p CABG LV Diastolic Dysfunction Paroxysmal Atrial Fibrillation Aortic Stenosis s/p AVR HTN Hypercholesterolemia - HFOT - ABX per ID - IV medrol - O2 to keep SpO2 >90% - rate control - anticoagulation - pulse oximetry monitoring Dr Gonzalez
--- NOTE | 2019-09-06 16:17 | CON.PSY ---
Psychiatry Consult Chief Complaint: 78 Year old male admitted for DEhydration, seen for Hallucinations and [id number]. pparantly has Psych History of DEp[ressiohn and ? hallucinations. Was in [facility] and was [id number] with Zoloft and Abilify. in wrist restrains. Symptoms: reports: Anxiety, Impulsivity, Hallucinations - Previous Psychiatric Treatment Outpatient: Less than 6 mos ago Inpatient: One prior admission - Previous Substance Abuse Treatment Outpatient: None Inpatient: None - Reason for Previous Treatment Reason for Previous Treatment: Major Depression, Psychotic Episode - Current Medications Current Medications: Active Medications Acetaminophen (Tylenol -) 650 mg PO Q4H PRN PRN Reason: FEVER Albuterol Sulfate (Ventolin Hfa Inhaler -) 2 puff IH Q4H PRN PRN Reason: SHORT OF BREATH/WHEEZING Apixaban (Eliquis -) 5 mg PO BID [facility] Last Admin: 09/06/19 09:10 Dose: 5 mg Documented by: Ascorbic Acid (Vitamin C -) 500 mg PO DAILY [facility] Last Admin: 09/06/19 09:10 Dose: 500 mg Documented by: Atorvastatin Calcium (Lipitor -) 40 mg PO HS [facility] Last Admin: 09/05/19 22:31 Dose: 40 mg Documented by: Diltiazem HCl (Cardizem Cd -) 120 mg PO DAILY [facility] Last Admin: 09/06/19 09:10 Dose: 120 mg Documented by: Furosemide (Lasix Injection -) 40 mg IVPUSH DAILY [facility] Last Admin: 09/06/19 09:06 Dose: 40 mg Documented by: Famotidine/Sodium Chloride (Pepcid 20 Mg Premixed Ivpb -) 20 mg in 50 mls @ 100 mls/hr IVPB BID [facility] Last Admin: 09/06/19 09:09 Dose: 100 mls/hr Documented by: Ceftriaxone Sodium 1 gm/ (Dextrose) 50 mls @ 100 mls/hr IVPB DAILY [facility] Last Admin: 09/06/19 10:01 Dose: 100 mls/hr Documented by: Lorazepam (Ativan Injection -) 1 mg IVPUSH Q6H PRN PRN Reason: ANXIETY Last Admin: 09/06/19 04:03 Dose: 1 mg Documented by: Methylprednisolone Sodium Succinate (Solu-Medrol -) 40 mg IVPUSH DAILY [facility] Last Admin: 09/06/19 09:08 Dose: 40 mg Documented by: Metoprolol Succinate (Toprol Xl -) 100 mg PO DAILY [facility] Last Admin: 09/06/19 09:10 Dose: 100 mg Documented by: Zinc Sulfate (Orazinc -) 220 mg PO BID [facility] Last Admin: 09/06/19 09:10 Dose: 220 mg Documented by: - Allergies Allergies: Allergies Allergy/AdvReac Type Severity Reaction Status Date / Time No Known Allergies Allergy Verified 07/19/19 10:52 - Current Living Status Usual Living Arrangement: With Spouse - Current Mental Status Evaluation Appearance: Disheveled Attitude: Guarded - Affect Affect: Constrictive Appropriateness: Appropriate to Content - Mood Mood: Irritable - Speech/Language Expressive: Coherent - Psychomotor Activity Psychomotor Activity: Normal - Thought Process Thought Process: Intact - Thought Content Hallucinations: Absent Delusions: Absent - Self Perception Self Perception: No Impairment - Cognition Attention: Alert Orientation: Time Memory, Immediate Recall: Intact Memory, Short Term: 2/3 Memory, Remote with Promptin/3 - Concentration Serial Sevens Intact: No Simple Calculations Intact: Yes - Abstraction Proverb Interpretation: Intact Judgement: Minimally Impaired - Insight Insight: Intact - Impulse Control Impulse Control: Minimally Impaired - Suicidal Ideation Suicidal Ideation: No - Homicidal Ideation Homicidal Ideation: No Assessment/Plan 1) start Abilify 2mg po0 hs fror Hallucinations.
[2019-09-06] MEDS: ATORVASTATIN CA 40 MG TABLET (FP) PO SCH (21:03)
[2019-09-06] MEDS ORDERED: ARIPiprazole 2 MG TABLET PO SCH (22:00)
[2019-09-07] MEDS ORDERED: PT OWN MED DRAWER 7, Y5N ONE (08:51)
[2019-09-07] MEDS ORDERED: cefTRIAXone SODIUM 1 GM VIAL ONE (08:51)
[2019-09-07] MEDS ORDERED: DEXTROSE 5%-WATER - 50 ML IVPB ONE (08:51)
[2019-09-07] MEDS: FUROSEMIDE 40 MG/4 ML INJECTABLE VIAL IVPUSH SCH (08:59)
[2019-09-07] MEDS: APIXABAN 5 MG TABLET PO SCH ×2 (08:59→22:53)
[2019-09-07] MEDS: FAMOTIDINE 20 MG/50 ML IVPB 20 MG/50 ML MG IVPB SCH (08:59)
[2019-09-07] MEDS: ASCORBIC ACID 500 MG TABLET (FP) PO SCH (08:59)
[2019-09-07] MEDS: ZINC SULFATE 220 MG CAPSULE (FP) PO SCH ×2 (08:59→21:35)
[2019-09-07] MEDS: methylPREDNISolone NA SUCC 40 MG/1 ML VIAL IVPUSH SCH (08:59)
[2019-09-07] MEDS: LORazepam 2 MG/ML SDV VIAL IVPUSH PRN (09:00)
--- NOTE | 2019-09-07 09:52 | PN ---
Progress Note, Physician History of Present Illness: PULMONARY AWAKE,CONFUSED,LESS DYSPNEIC REMAINS ON HFOT,O2 SAT 99% - Current Medication List Current Medications: Active Medications Acetaminophen (Tylenol -) 650 mg PO Q4H PRN PRN Reason: FEVER Albuterol Sulfate (Ventolin Hfa Inhaler -) 2 puff IH Q4H PRN PRN Reason: SHORT OF BREATH/WHEEZING Apixaban (Eliquis -) 5 mg PO BID [facility] Last Admin: 09/07/19 08:59 Dose: 5 mg Documented by: Aripiprazole (Abilify) 2 mg PO HS [facility] Last Admin: 09/06/19 21:03 Dose: 2 mg Documented by: Ascorbic Acid (Vitamin C -) 500 mg PO DAILY [facility] Last Admin: 09/07/19 08:59 Dose: 500 mg Documented by: Atorvastatin Calcium (Lipitor -) 40 mg PO HS [facility] Last Admin: 09/06/19 21:03 Dose: 40 mg Documented by: Diltiazem HCl (Cardizem Cd -) 120 mg PO DAILY [facility] Last Admin: 09/07/19 08:59 Dose: 120 mg Documented by: Furosemide (Lasix Injection -) 40 mg IVPUSH DAILY [facility] Last Admin: 09/07/19 08:59 Dose: 40 mg Documented by: Famotidine/Sodium Chloride (Pepcid 20 Mg Premixed Ivpb -) 20 mg in 50 mls @ 100 mls/hr IVPB BID [facility] Last Admin: 09/07/19 08:59 Dose: 100 mls/hr Documented by: Ceftriaxone Sodium 1 gm/ (Dextrose) 50 mls @ 100 mls/hr IVPB DAILY [facility] Last Admin: 09/06/19 10:01 Dose: 100 mls/hr Documented by: Lorazepam (Ativan Injection -) 1 mg IVPUSH Q6H PRN PRN Reason: ANXIETY Last Admin: 09/07/19 09:00 Dose: 1 mg Documented by: Methylprednisolone Sodium Succinate (Solu-Medrol -) 40 mg IVPUSH DAILY [facility] Last Admin: 09/07/19 08:59 Dose: 40 mg Documented by: Metoprolol Succinate (Toprol Xl -) 100 mg PO DAILY [facility] Last Admin: 09/07/19 08:59 Dose: 100 mg Documented by: Zinc Sulfate (Orazinc -) 220 mg PO BID [facility] Last Admin: 09/07/19 08:59 Dose: 220 mg Documented by: - Objective Vital Signs: Vital Signs Temperature 98.4 F 09/07/19 09:00 Pulse Rate 94 H 09/07/19 09:00 Respiratory Rate 18 09/07/19 09:00 Blood Pressure 122/68 09/07/19 09:00 O2 Sat by Pulse Oximetry (%) 99 09/07/19 09:00 Constitutional: Yes: Well Nourished, Calm Eyes: Yes: WNL HENT: Yes: WNL Neck: Yes: WNL Cardiovascular: Yes: Tachycardia, S1, S2 Respiratory: Yes: Diminished Gastrointestinal: Yes: Normal Bowel Sounds, Soft Extremities: Yes: WNL Edema: No Labs: CBC, BMP 09/06/19 06:16 09/06/19 06:16 INR, PTT INR 2.95 (0.83-1.09) H 09/01/19 10:38 Problem List - Problems (1) Acute on chronic diastolic (congestive) heart failure Code(s): I50.33 - ACUTE ON CHRONIC DIASTOLIC (CONGESTIVE) HEART FAILURE (2) Acute respiratory failure with hypoxia Code(s): J96.01 - ACUTE RESPIRATORY FAILURE WITH HYPOXIA (3) Suspected 2019 novel coronavirus infection Code(s): Z20.828 - CONTACT W AND EXPOSURE TO [facility] VIRAL COMMUNICABLE DISEASES (4) Aortic valve stenosis Code(s): I35.0 - NONRHEUMATIC AORTIC (VALVE) STENOSIS (5) Atrial fibrillation Code(s): I48.91 - UNSPECIFIED ATRIAL FIBRILLATION (6) CAD (coronary artery disease) Code(s): I25.10 - ATHSCL HEART DISEASE OF [place] CORONARY ARTERY W/O ANG PCTRS (7) HTN (hypertension) Code(s): I10 - ESSENTIAL (PRIMARY) HYPERTENSION Qualifiers: Assessment/Plan Assessment/Plan Acute Hypoxic Respiratory Failure Suspect COVID19 or residual disease CAD s/p CABG LV Diastolic Dysfunction Paroxysmal Atrial Fibrillation Aortic Stenosis s/p AVR HTN Hypercholesterolemia Confusion - empiric antibiotics as per ID - COVID19 PCR negative x 2 - COVID19 antibodies negative - Taper medrol - O2 to keep SpO2 >90% - rate control - anticoagulation - pulse oximetry monitoring - inflammatory markers improving DR DAVIS
[2019-09-07] MEDS: CEFTRIAXONE 1 GM in DEXTROSE 5%-WATER - 50 ML IVPB SCH (09:54)
--- NOTE | 2019-09-07 10:19 | PN ---
Progress Note, Physician Chief Complaint: Events noted History of Present Illness: Patient was seen and examined. Awake. Chart was reviewed Denies chest pain, shortness of breath or palpitations - Current Medication List Current Medications: Active Medications Acetaminophen (Tylenol -) 650 mg PO Q4H PRN PRN Reason: FEVER Albuterol Sulfate (Ventolin Hfa Inhaler -) 2 puff IH Q4H PRN PRN Reason: SHORT OF BREATH/WHEEZING Apixaban (Eliquis -) 5 mg PO BID [facility] Last Admin: 09/07/19 08:59 Dose: 5 mg Documented by: Aripiprazole (Abilify) 2 mg PO HS [facility] Last Admin: 09/06/19 21:03 Dose: 2 mg Documented by: Ascorbic Acid (Vitamin C -) 500 mg PO DAILY [facility] Last Admin: 09/07/19 08:59 Dose: 500 mg Documented by: Atorvastatin Calcium (Lipitor -) 40 mg PO HS [facility] Last Admin: 09/06/19 21:03 Dose: 40 mg Documented by: Diltiazem HCl (Cardizem Cd -) 120 mg PO DAILY [facility] Last Admin: 09/07/19 08:59 Dose: 120 mg Documented by: Furosemide (Lasix Injection -) 40 mg IVPUSH DAILY [facility] Last Admin: 09/07/19 08:59 Dose: 40 mg Documented by: Famotidine/Sodium Chloride (Pepcid 20 Mg Premixed Ivpb -) 20 mg in 50 mls @ 100 mls/hr IVPB BID [facility] Last Admin: 09/07/19 08:59 Dose: 100 mls/hr Documented by: Ceftriaxone Sodium 1 gm/ (Dextrose) 50 mls @ 100 mls/hr IVPB DAILY [facility] Last Admin: 09/07/19 09:54 Dose: 100 mls/hr Documented by: Lorazepam (Ativan Injection -) 1 mg IVPUSH Q6H PRN PRN Reason: ANXIETY Last Admin: 09/07/19 09:00 Dose: 1 mg Documented by: Methylprednisolone Sodium Succinate (Solu-Medrol -) 40 mg IVPUSH DAILY [facility] Last Admin: 09/07/19 08:59 Dose: 40 mg Documented by: Metoprolol Succinate (Toprol Xl -) 100 mg PO DAILY [facility] Last Admin: 09/07/19 08:59 Dose: 100 mg Documented by: Zinc Sulfate (Orazinc -) 220 mg PO BID [facility] Last Admin: 09/07/19 08:59 Dose: 220 mg Documented by: - Objective Vital Signs: Vital Signs Temperature 98.4 F 09/07/19 09:00 Pulse Rate 94 H 09/07/19 09:00 Respiratory Rate 18 09/07/19 09:00 Blood Pressure 122/68 09/07/19 09:00 O2 Sat by Pulse Oximetry (%) 99 09/07/19 09:00 Cardiovascular: Yes: Pulse Irregular, S1, S2 Respiratory: Yes: Diminished Gastrointestinal: Yes: Normal Bowel Sounds, Soft. No: Tenderness Edema: No Labs: CBC, BMP 09/06/19 06:16 09/06/19 06:16 Problem List - Problems (1) Acute on chronic diastolic (congestive) heart failure Code(s): I50.33 - ACUTE ON CHRONIC DIASTOLIC (CONGESTIVE) HEART FAILURE (2) Acute respiratory failure with hypoxia Code(s): J96.01 - ACUTE RESPIRATORY FAILURE WITH HYPOXIA (3) Atrial fibrillation Code(s): I48.91 - UNSPECIFIED ATRIAL FIBRILLATION (4) Atrial flutter Code(s): I48.92 - UNSPECIFIED ATRIAL FLUTTER Qualifiers: Atrial flutter type: unspecified Qualified Code(s): I48.92 - Unspecified atrial flutter (5) CAD (coronary artery disease) Code(s): I25.10 - ATHSCL HEART DISEASE OF [place] CORONARY ARTERY W/O ANG PCTRS (6) HTN (hypertension) Code(s): I10 - ESSENTIAL (PRIMARY) HYPERTENSION Qualifiers: (7) Hx of CABG Code(s): Z95.1 - PRESENCE OF AORTOCORONARY BYPASS GRAFT (8) Hypercholesterolemia Code(s): E78.00 - PURE HYPERCHOLESTEROLEMIA, UNSPECIFIED (9) S/P AVR (aortic valve replacement) Code(s): Z95.2 - PRESENCE OF PROSTHETIC HEART VALVE (10) S/P left atrial appendage ligation Code(s): Z98.890 - OTHER SPECIFIED POSTPROCEDURAL STATES Assessment/Plan 1. 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 Acute hypoxic respiratory failure related to bronchopneumonia with probable sepsis syndrome, coronavirus/COVID 19 or residual disease suspected - repeat test negative 3. Acute on chronic class II-III NYHA classification LV diastolic heart failure 4. CAD post CABG angina pectoris 5. Aortic valve stenosis post SAVR/bio-prosthesis with LA appendage ligation 6. Recurrent paroxysmal atrial flutter with rapid ventricular response [id number] score of 5 on DOAC's/Eliquis 7. HTN 8. Hypercholesterolemia 9. Bacteremia - endocarditis unlikely 10. GERD and hiatal hernia, h/o rectal bleed post polypectomy PLAN: 1. Empiric antibiotics, IV steroids with GI protection, bronchodilator, O2 to maintain saO2>90% 2. Continue Toprol XL 100 mg QD 3. Continue Cardizem CD 120 mg QD as tolerated 4. Continue Atorvastatin 40 mg QHS 5. Continue Eliquis 5 mg BID 6. Continue IV diuretics with monitoring of renal function and electrolytes 7. As outlined ideally if atrial flutter is persistent with rapid ventricular response early intervention is recommended with elective synchronized cardioversion - to be deferred at this point pending improvement of his respiratory status and now his neurological status Further plans are to follow Phuc Dillon MD
[2019-09-07] MEDS ORDERED: HALOPERIDOL LACTATE 5 MG/ML IM PRN (12:49)
--- NOTE | 2019-09-07 12:50 | PN ---
Progress Note (short form) - Note Progress Note: very confused this morning pulling out his iv lines no sob Vital Signs - 24 hr 09/06/19 09/06/19 09/06/19 13:00 18:00 21:00 Temperature 98 F 98.5 F Pulse Rate 88 88 Respiratory 20 20 Rate Blood Pressure 111/67 126/78 O2 Sat by Pulse 97 98 Oximetry (%) 09/06/19 09/07/19 09/07/19 22:00 02:00 06:12 Temperature 98.8 F 97.9 F 98.7 F Pulse Rate 87 73 90 Respiratory 20 19 20 Rate Blood Pressure 137/76 136/74 134/70 O2 Sat by Pulse 98 Oximetry (%) 09/07/19 09/07/19 09/07/19 08:00 09:00 12:06 Temperature 98.4 F Pulse Rate 94 H Respiratory 18 Rate Blood Pressure 122/68 O2 Sat by Pulse 99 99 96 Oximetry (%) Current Medications Generic Name Dose Route Start Last Admin Trade Name Freq PRN Reason Stop Dose Admin Acetaminophen 650 mg 09/01/19 18:17 Tylenol - PO Q4H PRN FEVER Albuterol Sulfate 2 puff 09/01/19 13:31 Ventolin Hfa Inhaler - IH Q4H PRN SHORT OF BREATH/WHEEZING Apixaban 5 mg 09/01/19 22:00 09/07/19 08:59 Eliquis - PO 5 mg BID [facility] Administration Aripiprazole 2 mg 09/06/19 22:00 09/06/19 21:03 Abilify PO 2 mg HS [facility] Administration Ascorbic Acid 500 mg 09/01/19 13:45 09/07/19 08:59 Vitamin C - PO 500 mg DAILY [facility] Administration Atorvastatin Calcium 40 mg 09/01/19 22:00 09/06/19 21:03 Lipitor - PO 40 mg HS [facility] Administration Diltiazem HCl 120 mg 09/02/19 11:30 09/07/19 08:59 Cardizem Cd - PO 120 mg DAILY [facility] Administration Furosemide 40 mg 09/02/19 11:30 09/07/19 08:59 Lasix Injection - IVPUSH 40 mg DAILY [facility] Administration Famotidine/Sodium Chloride 20 mg in 50 mls @ 100 mls/hr 09/01/19 13:45 09/07/19 08:59 Pepcid 20 Mg Premixed Ivpb - IVPB 100 mls/hr BID [facility] Administration Ceftriaxone Sodium 1 gm/ 50 mls @ 100 mls/hr 09/02/19 12:45 09/07/19 09:54 Dextrose IVPB 100 mls/hr DAILY [facility] Administration Lorazepam 1 mg 09/05/19 15:33 09/07/19 09:00 Ativan Injection - IVPUSH 1 mg Q6H PRN Administration ANXIETY Methylprednisolone Sodium Succinate 40 mg 09/06/19 10:00 09/07/19 08:59 Solu-Medrol - IVPUSH 40 mg DAILY [facility] Administration Metoprolol Succinate 100 mg 09/02/19 10:00 09/07/19 08:59 Toprol Xl - PO 100 mg DAILY [facility] Administration Prednisone 20 mg 09/08/19 10:00 Deltasone - PO DAILY [facility] Zinc Sulfate 220 mg 09/01/19 13:45 09/07/19 08:59 Orazinc - PO 220 mg BID [facility] Administration Laboratory Results - last 24 hr 09/02/19 15:00 HIV-1 RNA (PCR) <20 HIV-1 RNA (PCR) log10 TNP S1S2 RRR lungs decreased Abd--Soft, NT, BS+ Ext-- no edema A/P will dc solumedrol and start prednisone continue with lasix continue iv antibiotics restraints to prevent pulling out equipments spoke with pt's own Pychiatrist- Dr Medina inflammatory markers decreasing Problem List - Problems (1) Acute respiratory failure with hypoxia Code(s): J96.01 - ACUTE RESPIRATORY FAILURE WITH HYPOXIA (2) Suspected 2019 novel coronavirus infection Code(s): Z20.828 - CONTACT W AND EXPOSURE TO [facility] VIRAL COMMUNICABLE DISEASES (3) Aortic valve stenosis Code(s): I35.0 - NONRHEUMATIC AORTIC (VALVE) STENOSIS (4) Atrial fibrillation Code(s): I48.91 - UNSPECIFIED ATRIAL FIBRILLATION (5) CAD (coronary artery disease) Code(s): I25.10 - ATHSCL HEART DISEASE OF [place] CORONARY ARTERY W/O ANG PCTRS (6) HTN (hypertension) Code(s): I10 - ESSENTIAL (PRIMARY) HYPERTENSION Qualifiers:
--- NOTE | 2019-09-07 15:10 | PN ---
Progress Note, Physician History of Present Illness: PATIENT STILL CONFUSED SEATED IN BED APPEARS COMFORTABLE ON HIGH FLOW O2 NO COMPLAINTS DENIES CHEST PAIN/ DYSPNEA O2 SAT 99% AFEBRILE , WBC IMPROVED REPEAT COVID-19 SWAB NEGATIVE BC SCN X 1 BOTTLE C/W CONTAMINATION REPEAT BC NO GROWTH CT CHEST FINDINGS NOTED LEGIONELLA (-) - Current Medication List Current Medications: Active Medications Acetaminophen (Tylenol -) 650 mg PO Q4H PRN PRN Reason: FEVER Albuterol Sulfate (Ventolin Hfa Inhaler -) 2 puff IH Q4H PRN PRN Reason: SHORT OF BREATH/WHEEZING Apixaban (Eliquis -) 5 mg PO BID [facility] Last Admin: 09/07/19 08:59 Dose: 5 mg Documented by: Ascorbic Acid (Vitamin C -) 500 mg PO DAILY [facility] Last Admin: 09/07/19 08:59 Dose: 500 mg Documented by: Atorvastatin Calcium (Lipitor -) 40 mg PO HS [facility] Last Admin: 09/06/19 21:03 Dose: 40 mg Documented by: Diltiazem HCl (Cardizem Cd -) 120 mg PO DAILY [facility] Last Admin: 09/07/19 08:59 Dose: 120 mg Documented by: Furosemide (Lasix Injection -) 40 mg IVPUSH DAILY [facility] Last Admin: 09/07/19 08:59 Dose: 40 mg Documented by: Haloperidol (Haldol Injection (Fast Acting) -) 5 mg IM Q6H PRN PRN Reason: AGITATION Ceftriaxone Sodium 1 gm/ (Dextrose) 50 mls @ 100 mls/hr IVPB DAILY [facility] Last Admin: 09/07/19 09:54 Dose: 100 mls/hr Documented by: Metoprolol Succinate (Toprol Xl -) 100 mg PO DAILY [facility] Last Admin: 09/07/19 08:59 Dose: 100 mg Documented by: Pantoprazole Sodium (Protonix -) 40 mg PO DAILY [facility] Prednisone (Deltasone -) 20 mg PO DAILY [facility] Zinc Sulfate (Orazinc -) 220 mg PO BID [facility] Last Admin: 09/07/19 08:59 Dose: 220 mg Documented by: - Objective Vital Signs: Vital Signs Temperature 97.7 F 09/07/19 13:00 Pulse Rate 133 H 09/07/19 13:00 Respiratory Rate 18 09/07/19 13:00 Blood Pressure 132/78 09/07/19 13:00 O2 Sat by Pulse Oximetry (%) 96 09/07/19 12:06 Constitutional: Yes: No Distress Eyes: Yes: Conjunctiva Clear Cardiovascular: Yes: Regular Rate and Rhythm, S1, S2 Respiratory: Yes: Diminished Gastrointestinal: Yes: Normal Bowel Sounds, Soft. No: Tenderness Labs: CBC, BMP 09/06/19 06:16 09/06/19 06:16 INR, PTT INR 2.95 (0.83-1.09) H 09/01/19 10:38 Assessment/Plan BILATERAL PNEUMONITIS ? ETIOLOGY COVID-19 NEGATIVE X 2 TOXIC METABOLIC ENCEPHALOPATHY +BC SCN X 1 BOTTLE LIKELY CONTAMINANT ?CHF LACTIC ACIDOSIS CONTINUE CEFTRIAXONE ECHOCARDIOGRAM NOTED
--- NOTE | 2019-09-07 16:08 | EKG ---
Test Reason : Blood Pressure : / mmHG Vent. Rate : 134 BPM Atrial Rate : 268 BPM P-R Int : 000 ms QRS Dur : 100 ms QT Int : 362 ms P-R-T Axes : -64 -11 206 degrees QTc Int : 540 ms ATRIAL FLUTTER WITH 2:1 A-V CONDUCTION LEFT VENTRICULAR HYPERTROPHY WITH REPOLARIZATION ABNORMALITY ABNORMAL ECG Confirmed by MD NUHA, NHI ([id number]) on 09/07/2019 4:07:52 PM Referred By: Confirmed By:NHI BREEN MD
[2019-09-07] MEDS ORDERED: dilTIAZem HCL 50 MG/10 ML - 10 ML VIAL IVPB ONE (16:37)
[2019-09-07] MEDS ORDERED: dilTIAZem HCL 50 MG/10 ML - 10 ML VIAL IVPUSH ONE (17:00)
[2019-09-07] MEDS: ATORVASTATIN CA 40 MG TABLET (FP) PO SCH (22:53)
[2019-09-08 07:46] LABS: BASO % 0.1 % (0-2.0); HEMOGLOBIN 10.7 GM/dL (11.7-16.9); LYMPH % 4.2 % (8-40); MCH 29.9 pg (25.7-33.7); MCHC 32.4 g/dl (32.0-35.9); MEAN CELL VOLUME 92.3 fl (80-96); MEAN PLT VOLUME 7.4 fl (7.5-11.1); MONO % 1.9 % (3.8-10.2); NEUT % 93.8 % (42.8-82.8); PLATELET COUNT 290 K/MM3 (134-434); RBC 3.57 M/mm3 (4.00-5.60); WHITE BLOOD COUNT 13.1 K/mm3 (4.0-10.0)
[2019-09-08 08:17] LABS: BILIRUBIN,TOTAL 0.9 mg/dL (0.2-1); CALCIUM 7.7 mg/dL (8.5-10.1); POTASSIUM 4.1 mmol/L (3.5-5.1); TOT PROT 6.7 g/dl (6.4-8.2)
[2019-09-08 08:42] LABS: CREATININE 0.8 mg/dL (0.55-1.3)
[2019-09-08] MEDS ORDERED: metoPROLOL SUCCINATE 25 MG TAB.SR.24H (FP) ONE ×2 (08:46→21:53)
[2019-09-08] MEDS ORDERED: DEXTROSE 5%-WATER - 50 ML IVPB ONE (08:47)
[2019-09-08] MEDS ORDERED: cefTRIAXone SODIUM 1 GM VIAL ONE (08:47)
[2019-09-08 09:08] LABS: ANISOCYTOSIS 0; MACROCYTOSIS 0; PLATELET ESTIMATE NORMAL
[2019-09-08] MEDS: ZINC SULFATE 220 MG CAPSULE (FP) PO SCH ×2 (09:24→22:00)
[2019-09-08] MEDS: CEFTRIAXONE 1 GM in DEXTROSE 5%-WATER - 50 ML IVPB SCH (09:24)
[2019-09-08] MEDS: predniSONE 20 MG TABLET (UD) PO SCH (09:24)
[2019-09-08] MEDS: FUROSEMIDE 40 MG/4 ML INJECTABLE VIAL IVPUSH SCH (09:24)
[2019-09-08] MEDS: METOPROLOL SUCCINATE 50 MG, METOPROLOL SUCCINATE 25 MG PO SCH ×2 (09:24→22:00)
[2019-09-08] MEDS: APIXABAN 5 MG TABLET PO SCH ×2 (09:24→22:00)
[2019-09-08] MEDS: PANTOPRAZOLE 40 MG TABLET PO SCH (09:24)
[2019-09-08] MEDS: ASCORBIC ACID 500 MG TABLET (FP) PO SCH (09:24)
--- NOTE | 2019-09-08 10:02 | PN ---
Progress Note, Physician History of Present Illness: pulmonary awake,confused on HFOT ,O2 sat 98% on fio2 60%,flow 45% - Current Medication List Current Medications: Active Medications Acetaminophen (Tylenol -) 650 mg PO Q4H PRN PRN Reason: FEVER Albuterol Sulfate (Ventolin Hfa Inhaler -) 2 puff IH Q4H PRN PRN Reason: SHORT OF BREATH/WHEEZING Apixaban (Eliquis -) 5 mg PO BID [facility] Last Admin: 09/08/19 09:24 Dose: 5 mg Documented by: Ascorbic Acid (Vitamin C -) 500 mg PO DAILY [facility] Last Admin: 09/08/19 09:24 Dose: 500 mg Documented by: Atorvastatin Calcium (Lipitor -) 40 mg PO HS [facility] Last Admin: 09/07/19 22:53 Dose: 40 mg Documented by: Diltiazem HCl (Cardizem Cd -) 120 mg PO DAILY [facility] Last Admin: 09/08/19 09:24 Dose: 120 mg Documented by: Furosemide (Lasix Injection -) 40 mg IVPUSH DAILY [facility] Last Admin: 09/08/19 09:24 Dose: 40 mg Documented by: Haloperidol (Haldol Injection (Fast Acting) -) 5 mg IM Q6H PRN PRN Reason: AGITATION Last Admin: 09/07/19 21:35 Dose: 5 mg Documented by: Ceftriaxone Sodium 1 gm/ (Dextrose) 50 mls @ 100 mls/hr IVPB DAILY [facility] Last Admin: 09/08/19 09:24 Dose: 100 mls/hr Documented by: Metoprolol Succinate 50 mg/ (Metoprolol Succinate 25 mg) 75 mg PO BID [facility] Last Admin: 09/08/19 09:24 Dose: 75 mg Documented by: Pantoprazole Sodium (Protonix -) 40 mg PO DAILY [facility] Last Admin: 09/08/19 09:24 Dose: 40 mg Documented by: Prednisone (Deltasone -) 20 mg PO DAILY [facility] Last Admin: 09/08/19 09:24 Dose: 20 mg Documented by: Zinc Sulfate (Orazinc -) 220 mg PO BID [facility] Last Admin: 09/08/19 09:24 Dose: 220 mg Documented by: - Objective Vital Signs: Vital Signs Temperature 98.3 F 09/08/19 09:42 Pulse Rate 94 H 09/08/19 09:42 Respiratory Rate 18 09/08/19 09:42 Blood Pressure 140/74 09/08/19 09:42 O2 Sat by Pulse Oximetry (%) 96 09/08/19 09:42 Constitutional: Yes: Calm, Thin, Other (confused) Eyes: Yes: WNL HENT: Yes: WNL Neck: Yes: WNL Cardiovascular: Yes: Pulse Irregular, S1, S2 Respiratory: Yes: Rhonchi (few rhonchi) Gastrointestinal: Yes: Normal Bowel Sounds, Soft Extremities: Yes: WNL Edema: No Labs: CBC, BMP 09/08/19 06:35 09/08/19 06:35 INR, PTT INR 2.95 (0.83-1.09) H 09/01/19 10:38 Problem List - Problems (1) Acute on chronic diastolic (congestive) heart failure Code(s): I50.33 - ACUTE ON CHRONIC DIASTOLIC (CONGESTIVE) HEART FAILURE (2) Acute respiratory failure with hypoxia Code(s): J96.01 - ACUTE RESPIRATORY FAILURE WITH HYPOXIA (3) Suspected 2019 novel coronavirus infection Code(s): Z20.828 - CONTACT W AND EXPOSURE TO [facility] VIRAL COMMUNICABLE DISEASES (4) Aortic valve stenosis Code(s): I35.0 - NONRHEUMATIC AORTIC (VALVE) STENOSIS (5) Atrial fibrillation Code(s): I48.91 - UNSPECIFIED ATRIAL FIBRILLATION (6) CAD (coronary artery disease) Code(s): I25.10 - ATHSCL HEART DISEASE OF [place] CORONARY ARTERY W/O ANG PCTRS (7) HTN (hypertension) Code(s): I10 - ESSENTIAL (PRIMARY) HYPERTENSION Qualifiers: Assessment/Plan Assessment/Plan Acute Hypoxic Respiratory Failure Suspect COVID19 or residual disease CAD s/p CABG LV Diastolic Dysfunction Paroxysmal Atrial Fibrillation Aortic Stenosis s/p AVR HTN Hypercholesterolemia Confusion - empiric antibiotics as per ID - COVID19 PCR negative x 2 - COVID19 antibodies negative - Taper medrol - O2 to keep SpO2 >90% - taper HFOT - rate control - anticoagulation - pulse oximetry monitoring - inflammatory markers improving DR DAVIS
--- NOTE | 2019-09-08 10:25 | PN ---
Progress Note, Physician History of Present Illness: awake,confused on HFOT ,O2 sat 98% on fio2 60%,flow 45%, atrial flutter is persistent with periods of rapid ventricular response Historically atrial flutter is harder to rate control; ideally as outlined in the prior notes cardioversion is to be performed pending improvement of his respiratory status and now his neurological status. Clinically breathing appears stable on HFOT. covd x 2 - refuses second - Current Medication List Current Medications: Active Medications Acetaminophen (Tylenol -) 650 mg PO Q4H PRN PRN Reason: FEVER Albuterol Sulfate (Ventolin Hfa Inhaler -) 2 puff IH Q4H PRN PRN Reason: SHORT OF BREATH/WHEEZING Apixaban (Eliquis -) 5 mg PO BID [facility] Last Admin: 09/08/19 09:24 Dose: 5 mg Documented by: Ascorbic Acid (Vitamin C -) 500 mg PO DAILY [facility] Last Admin: 09/08/19 09:24 Dose: 500 mg Documented by: Atorvastatin Calcium (Lipitor -) 40 mg PO HS [facility] Last Admin: 09/07/19 22:53 Dose: 40 mg Documented by: Diltiazem HCl (Cardizem Cd -) 120 mg PO DAILY [facility] Last Admin: 09/08/19 09:24 Dose: 120 mg Documented by: Furosemide (Lasix Injection -) 40 mg IVPUSH DAILY [facility] Last Admin: 09/08/19 09:24 Dose: 40 mg Documented by: Haloperidol (Haldol Injection (Fast Acting) -) 5 mg IM Q6H PRN PRN Reason: AGITATION Last Admin: 09/07/19 21:35 Dose: 5 mg Documented by: Ceftriaxone Sodium 1 gm/ (Dextrose) 50 mls @ 100 mls/hr IVPB DAILY [facility] Last Admin: 09/08/19 09:24 Dose: 100 mls/hr Documented by: Metoprolol Succinate 50 mg/ (Metoprolol Succinate 25 mg) 75 mg PO BID [facility] Last Admin: 09/08/19 09:24 Dose: 75 mg Documented by: Pantoprazole Sodium (Protonix -) 40 mg PO DAILY [facility] Last Admin: 09/08/19 09:24 Dose: 40 mg Documented by: Prednisone (Deltasone -) 20 mg PO DAILY [facility] Last Admin: 09/08/19 09:24 Dose: 20 mg Documented by: Zinc Sulfate (Orazinc -) 220 mg PO BID [facility] Last Admin: 09/08/19 09:24 Dose: 220 mg Documented by: - Objective Vital Signs: Vital Signs Temperature 98.3 F 09/08/19 09:42 Pulse Rate 94 H 09/08/19 09:42 Respiratory Rate 18 09/08/19 09:42 Blood Pressure 140/74 09/08/19 09:42 O2 Sat by Pulse Oximetry (%) 96 09/08/19 09:42 Constitutional: Yes: No Distress, Calm Neck: Yes: Supple Cardiovascular: Yes: Pulse Irregular Respiratory: Yes: SOB, Other (HFOT) Gastrointestinal: Yes: Normal Bowel Sounds, Soft Edema: No Labs: CBC, BMP 09/08/19 06:35 09/08/19 06:35 INR, PTT INR 2.95 (0.83-1.09) H 09/01/19 10:38 Problem List - Problems (1) Acute respiratory failure with hypoxia Code(s): J96.01 - ACUTE RESPIRATORY FAILURE WITH HYPOXIA (2) Suspected 2019 novel coronavirus infection Code(s): Z20.828 - CONTACT W AND EXPOSURE TO OTH VIRAL COMMUNICABLE DISEASES (3) Acute on chronic diastolic (congestive) heart failure Code(s): I50.33 - ACUTE ON CHRONIC DIASTOLIC (CONGESTIVE) HEART FAILURE Assessment/Plan Assessment/Plan - Problems (1) CAD (coronary artery disease) Code(s): I25.10 - ATHSCL HEART DISEASE OF [place] CORONARY ARTERY W/O ANG PCTRS (2) Hx of CABG Code(s): Z95.1 - PRESENCE OF AORTOCORONARY BYPASS GRAFT (3) S/P AVR (aortic valve replacement) Code(s): Z95.2 - PRESENCE OF PROSTHETIC HEART VALVE (4) S/P left atrial appendage ligation Code(s): Z98.890 - OTHER SPECIFIED POSTPROCEDURAL STATES (5) Aortic valve stenosis Code(s): I35.0 - NONRHEUMATIC AORTIC (VALVE) STENOSIS (6) Atrial fibrillation Code(s): I48.91 - UNSPECIFIED ATRIAL FIBRILLATION (7) HTN (hypertension) Code(s): I10 - ESSENTIAL (PRIMARY) HYPERTENSION Qualifiers: Hypertension type: essential hypertension Qualified Code(s): I10 - Essential (primary) hypertension (8) Hypercholesterolemia Code(s): E78.00 - PURE HYPERCHOLESTEROLEMIA, UNSPECIFIED (9) GERD (gastroesophageal reflux disease) Code(s): K21.9 - GASTRO-ESOPHAGEAL REFLUX DISEASE WITHOUT ESOPHAGITIS (10) Hiatal hernia Code(s): K44.9 - DIAPHRAGMATIC HERNIA WITHOUT OBSTRUCTION OR GANGRENE (11) GI bleed Code(s): K92.2 - GASTROINTESTINAL HEMORRHAGE, UNSPECIFIED Qualifiers: GI bleed type/associated pathology: unspecified gastrointestinal hemorrhage type Qualified Code(s): K92.2 - Gastrointestinal hemorrhage, unspecified Assessment/Plan Echo 09/03/2019 Post-op septal motion, normal LVEF 50-55%, mod cLVH, normal RV size and fxn, mild LAE, mild MR, TR, bioAVR, mild AR, restrictive physiology Echocardiography October 12, 2018 revealed mild degree of concentric left ventricular hypertrophy with normal left ventricular systolic function and estimated LVEF between 65-70%, mild left atrial dilatation, normal right ventricular size and systolic function, aortic valve bioprosthesis with no aortic valve insufficiency, moderately dilated ascending aorta, mild thickening of the mitral valve leaflets with mild mitral valve regurgitation, mild to moderate tricuspid valve regurgitation with calculated RVSP of [address]: Small-moderate right and very small left effusion, pulm edema TAA 3.9 cm 1. 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 Acute hypoxic respiratory failure related to bronchopneumonia with probable sepsis syndrome, coronavirus/COVID 19 or residual disease suspected - repeat test negative 3. Acute on chronic class II-III NYHA classification LV diastolic heart failure improving 4. CAD post CABG angina pectoris 5. Aortic valve stenosis post SAVR/bio-prosthesis with LA appendage ligation 6. Recurrent paroxysmal atrial flutter with rapid ventricular response [id number] score of 5 on DOAC's/Eliquis 7. HTN 8. Hypercholesterolemia 9. Bacteremia - endocarditis unlikely 10. GERD and hiatal hernia, h/o rectal bleed post polypectomy PLAN: 1. Empiric antibiotics, wean oral steroids with GI protection, BD, O2 to maintain saO2>90%, COVID 19 PCR negative 2. Continue Toprol XL 100 qd and dose titration hemodynamics permitting 3. Continue Cardizem CD 120 qd and dose titration hemodynamics permitting 4. Continue Atorvastatin 40 qd 5. Continue Eliquis 5 bid 6. Resume oral diuretics with monitoring of diuretic response, renal function and electrolytes 7. As outlined in yesterday's note ideally if atrial flutter is persistent with rapid ventricular response early intervention is recommended/elective synchronized cardioversion- to be deferred at this point pending improvement of his respiratory status and now his neurological status
--- NOTE | 2019-09-08 15:13 | PN ---
Progress Note (short form) - Note Progress Note: calm no distress confused Vital Signs - 24 hr 09/07/19 09/07/19 09/07/19 18:00 20:15 21:00 Temperature 98.6 F Pulse Rate 121 H Respiratory 18 Rate Blood Pressure 123/82 O2 Sat by Pulse 99 99 99 Oximetry (%) 09/07/19 09/08/19 09/08/19 22:00 00:05 05:10 Temperature 97.4 F L Pulse Rate 85 77 Respiratory 18 Rate Blood Pressure 137/79 O2 Sat by Pulse 99 100 98 Oximetry (%) 09/08/19 09/08/19 09/08/19 06:00 08:30 09:42 Temperature 98.1 F 98.3 F Pulse Rate 71 78 94 H Respiratory 18 18 Rate Blood Pressure 131/71 140/74 O2 Sat by Pulse 99 96 Oximetry (%) 09/08/19 09/08/19 09/08/19 10:00 11:35 13:53 Temperature 97.5 F L Pulse Rate 88 83 Respiratory 18 Rate Blood Pressure 127/70 O2 Sat by Pulse 97 98 96 Oximetry (%) 09/08/19 14:13 Temperature Pulse Rate 80 Respiratory Rate Blood Pressure O2 Sat by Pulse 96 Oximetry (%) Current Medications Generic Name Dose Route Start Last Admin Trade Name Freq PRN Reason Stop Dose Admin Acetaminophen 650 mg 09/01/19 18:17 Tylenol - PO Q4H PRN FEVER Albuterol Sulfate 2 puff 09/01/19 13:31 Ventolin Hfa Inhaler - IH Q4H PRN SHORT OF BREATH/WHEEZING Apixaban 5 mg 09/01/19 22:00 09/08/19 09:24 Eliquis - PO 5 mg BID [facility] Administration Ascorbic Acid 500 mg 09/01/19 13:45 09/08/19 09:24 Vitamin C - PO 500 mg DAILY [facility] Administration Atorvastatin Calcium 40 mg 09/01/19 22:00 09/07/19 22:53 Lipitor - PO 40 mg HS [facility] Administration Diltiazem HCl 120 mg 09/02/19 11:30 09/08/19 09:24 Cardizem Cd - PO 120 mg DAILY [facility] Administration Furosemide 40 mg 09/02/19 11:30 09/08/19 09:24 Lasix Injection - IVPUSH 40 mg DAILY [facility] Administration Haloperidol 5 mg 09/07/19 12:49 09/07/19 21:35 Haldol Injection (Fast Acting) - IM 5 mg Q6H PRN Administration AGITATION Ceftriaxone Sodium 1 gm/ 50 mls @ 100 mls/hr 09/02/19 12:45 09/08/19 09:24 Dextrose IVPB 100 mls/hr DAILY [facility] Administration Metoprolol Succinate 50 mg/ 75 mg 09/08/19 10:00 09/08/19 09:24 Metoprolol Succinate 25 mg PO 75 mg BID [facility] Administration Pantoprazole Sodium 40 mg 09/08/19 10:00 09/08/19 09:24 Protonix - PO 40 mg DAILY [facility] Administration Prednisone 20 mg 09/08/19 10:00 09/08/19 09:24 Deltasone - PO 20 mg DAILY [facility] Administration Zinc Sulfate 220 mg 09/01/19 13:45 09/08/19 09:24 Orazinc - PO 220 mg BID [facility] Administration Laboratory Results - last 24 hr 09/08/19 09/08/19 09/08/19 06:35 06:35 06:35 WBC 13.1 H RBC 3.57 L Hgb 10.7 L Hct 33.0 L MCV 92.3 MCH 29.9 MCHC 32.4 RDW 14.0 Plt Count 290 MPV 7.4 L Absolute Neuts (auto) 12.2 H Neutrophils % 93.8 H Neutrophils % (Manual) 98.0 H Band Neutrophils % 0.0 Lymphocytes % 4.2 L Lymphocytes % (Manual) 2.0 L D Monocytes % 1.9 L Monocytes % (Manual) 0 L D Eosinophils % 0.0 Eosinophils % (Manual) 0.0 Basophils % 0.1 Basophils % (Manual) 0.0 Myelocytes % (Man) 0 Promyelocytes % (Man) 0 Blast Cells % (Manual) 0 Nucleated RBC % 0 Metamyelocytes 0 Hypochromia 0 Platelet Estimate Normal Polychromasia 0 Poikilocytosis 0 Anisocytosis 0 Microcytosis 0 Macrocytosis 0 D-Dimer 1373 H Sodium 143 Potassium 4.1 Chloride 109 H Carbon Dioxide 30 Anion Gap 4 L BUN 37.0 H Creatinine 0.8 Est GFR (CKD-EPI)AfAm 99.87 Est GFR (CKD-EPI)NonAf 86.17 Random Glucose 93 Calcium 7.7 L Total Bilirubin 0.9 AST 31 ALT 104 H Alkaline Phosphatase 62 LD Total 592 H C-Reactive Protein 3.4 H Total Protein 6.7 Albumin 2.0 L TSH 0.80 D Free T4 1.06 S1S2 RRR lungs decreased Abd--Soft, NT, BS+ Ext-- no edema A/P continue prednisone continue with lasix continue iv antibiotics restraints to prevent pulling out equipments spoke with pt's own Pychiatrist- Dr Medina inflammatory markers now rising Problem List - Problems (1) Acute respiratory failure with hypoxia Code(s): J96.01 - ACUTE RESPIRATORY FAILURE WITH HYPOXIA (2) Suspected 2019 novel coronavirus infection Code(s): Z20.828 - CONTACT W AND EXPOSURE TO OTH VIRAL COMMUNICABLE DISEASES (3) Aortic valve stenosis Code(s): I35.0 - NONRHEUMATIC AORTIC (VALVE) STENOSIS (4) Atrial fibrillation Code(s): I48.91 - UNSPECIFIED ATRIAL FIBRILLATION (5) CAD (coronary artery disease) Code(s): I25.10 - ATHSCL HEART DISEASE OF [place] CORONARY ARTERY W/O ANG PCTRS (6) HTN (hypertension) Code(s): I10 - ESSENTIAL (PRIMARY) HYPERTENSION Qualifiers:
[2019-09-08 15:44] VITALS: BMI 22.8
[2019-09-08] MEDS: ATORVASTATIN CA 40 MG TABLET (FP) PO SCH (22:00)
[2019-09-09] MEDS ORDERED: metoPROLOL SUCCINATE 25 MG TAB.SR.24H (FP) ONE ×2 (09:19→21:05)
[2019-09-09] MEDS ORDERED: cefTRIAXone SODIUM 1 GM VIAL ONE (09:21)
[2019-09-09] MEDS ORDERED: DEXTROSE 5%-WATER - 50 ML IVPB ONE (09:21)
[2019-09-09] MEDS: APIXABAN 5 MG TABLET PO SCH ×2 (09:25→21:15)
[2019-09-09] MEDS: METOPROLOL SUCCINATE 50 MG, METOPROLOL SUCCINATE 25 MG PO SCH ×2 (09:25→21:15)
[2019-09-09] MEDS: ASCORBIC ACID 500 MG TABLET (FP) PO SCH (09:25)
[2019-09-09] MEDS: predniSONE 20 MG TABLET (UD) PO SCH (09:26)
[2019-09-09] MEDS: PANTOPRAZOLE 40 MG TABLET PO SCH (09:26)
[2019-09-09] MEDS: ZINC SULFATE 220 MG CAPSULE (FP) PO SCH ×2 (09:26→21:15)
[2019-09-09] MEDS: CEFTRIAXONE 1 GM in DEXTROSE 5%-WATER - 50 ML IVPB SCH (09:26)
[2019-09-09] MEDS: FUROSEMIDE 20 MG TABLET (FP) PO SCH (09:26)
--- NOTE | 2019-09-09 10:11 | PN ---
Progress Note, Physician History of Present Illness: Mental status improved and conversant on HFOT (45L / 50% FiO2),O2 sat 98%, atrial flutter is persistent with periods of rapid ventricular response Historically atrial flutter is harder to rate control; ideally as outlined in the prior notes cardioversion is to be performed pending improvement of his respiratory status and now his neurological status. Clinically breathing improved on HFOT. - Current Medication List Current Medications: Active Medications Acetaminophen (Tylenol -) 650 mg PO Q4H PRN PRN Reason: FEVER Albuterol Sulfate (Ventolin Hfa Inhaler -) 2 puff IH Q4H PRN PRN Reason: SHORT OF BREATH/WHEEZING Apixaban (Eliquis -) 5 mg PO BID [facility] Last Admin: 09/09/19 09:25 Dose: 5 mg Documented by: Ascorbic Acid (Vitamin C -) 500 mg PO DAILY [facility] Last Admin: 09/09/19 09:25 Dose: 500 mg Documented by: Atorvastatin Calcium (Lipitor -) 40 mg PO HS [facility] Last Admin: 09/08/19 22:00 Dose: 40 mg Documented by: Diltiazem HCl (Cardizem Cd -) 120 mg PO DAILY [facility] Last Admin: 09/09/19 09:25 Dose: 120 mg Documented by: Furosemide (Lasix -) 20 mg PO DAILY [facility] Last Admin: 09/09/19 09:26 Dose: 20 mg Documented by: Haloperidol (Haldol Injection (Fast Acting) -) 5 mg IM Q6H PRN PRN Reason: AGITATION Last Admin: 09/07/19 21:35 Dose: 5 mg Documented by: Ceftriaxone Sodium 1 gm/ (Dextrose) 50 mls @ 100 mls/hr IVPB DAILY [facility] Last Admin: 09/09/19 09:26 Dose: 100 mls/hr Documented by: Metoprolol Succinate 50 mg/ (Metoprolol Succinate 25 mg) 75 mg PO BID [facility] Last Admin: 09/09/19 09:25 Dose: 75 mg Documented by: Pantoprazole Sodium (Protonix -) 40 mg PO DAILY [facility] Last Admin: 09/09/19 09:26 Dose: 40 mg Documented by: Prednisone (Deltasone -) 20 mg PO DAILY [facility] Last Admin: 09/09/19 09:26 Dose: 20 mg Documented by: Zinc Sulfate (Orazinc -) 220 mg PO BID [facility] Last Admin: 09/09/19 09:26 Dose: 220 mg Documented by: - Objective Vital Signs: Vital Signs Temperature 97.6 F 09/09/19 09:23 Pulse Rate 88 09/09/19 09:23 Respiratory Rate 19 09/09/19 09:23 Blood Pressure 113/75 09/09/19 09:23 O2 Sat by Pulse Oximetry (%) 97 09/09/19 09:23 Constitutional: Yes: No Distress, Calm, Thin Neck: Yes: Supple Cardiovascular: Yes: Pulse Irregular Respiratory: Yes: Diminished, SOB, Other (HFOT) Gastrointestinal: Yes: Normal Bowel Sounds, Soft Edema: No Labs: CBC, BMP 09/08/19 06:35 09/08/19 06:35 INR, PTT INR 2.95 (0.83-1.09) H 09/01/19 10:38 Problem List - Problems (1) Acute respiratory failure with hypoxia Code(s): J96.01 - ACUTE RESPIRATORY FAILURE WITH HYPOXIA (2) Suspected 2019 novel coronavirus infection Code(s): Z20.828 - CONTACT W AND EXPOSURE TO OTH VIRAL COMMUNICABLE DISEASES (3) Acute on chronic diastolic (congestive) heart failure Code(s): I50.33 - ACUTE ON CHRONIC DIASTOLIC (CONGESTIVE) HEART FAILURE Assessment/Plan Assessment/Plan - Problems (1) CAD (coronary artery disease) Code(s): I25.10 - ATHSCL HEART DISEASE OF [place] CORONARY ARTERY W/O ANG PCTRS (2) Hx of CABG Code(s): Z95.1 - PRESENCE OF AORTOCORONARY BYPASS GRAFT (3) S/P AVR (aortic valve replacement) Code(s): Z95.2 - PRESENCE OF PROSTHETIC HEART VALVE (4) S/P left atrial appendage ligation Code(s): Z98.890 - OTHER SPECIFIED POSTPROCEDURAL STATES (5) Aortic valve stenosis Code(s): I35.0 - NONRHEUMATIC AORTIC (VALVE) STENOSIS (6) Atrial fibrillation Code(s): I48.91 - UNSPECIFIED ATRIAL FIBRILLATION (7) HTN (hypertension) Code(s): I10 - ESSENTIAL (PRIMARY) HYPERTENSION Qualifiers: Hypertension type: essential hypertension Qualified Code(s): I10 - Essential (primary) hypertension (8) Hypercholesterolemia Code(s): E78.00 - PURE HYPERCHOLESTEROLEMIA, UNSPECIFIED (9) GERD (gastroesophageal reflux disease) Code(s): K21.9 - GASTRO-ESOPHAGEAL REFLUX DISEASE WITHOUT ESOPHAGITIS (10) Hiatal hernia Code(s): K44.9 - DIAPHRAGMATIC HERNIA WITHOUT OBSTRUCTION OR GANGRENE (11) GI bleed Code(s): K92.2 - GASTROINTESTINAL HEMORRHAGE, UNSPECIFIED Qualifiers: GI bleed type/associated pathology: unspecified gastrointestinal hemorrhage type Qualified Code(s): K92.2 - Gastrointestinal hemorrhage, unspecified Assessment/Plan Echo 09/03/2019 Post-op septal motion, normal LVEF 50-55%, mod cLVH, normal RV size and fxn, mild LAE, mild MR, TR, bioAVR, mild AR, restrictive physiology Echocardiography October 12, 2018 revealed mild degree of concentric left ventricular hypertrophy with normal left ventricular systolic function and estimated LVEF between 65-70%, mild left atrial dilatation, normal right ventricular size and systolic function, aortic valve bioprosthesis with no aortic valve insufficiency, moderately dilated ascending aorta, mild thickening of the mitral valve leaflets with mild mitral valve regurgitation, mild to moderate tricuspid valve regurgitation with calculated RVSP of [address]: Small-moderate right and very small left effusion, pulm edema TAA 3.9 cm 1. 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 Acute hypoxic respiratory failure related to bronchopneumonia with probable sepsis syndrome, coronavirus/COVID 19 or residual disease suspected - repeat test negative 3. Acute on chronic class II-III NYHA classification LV diastolic heart failure improving 4. CAD post CABG angina pectoris 5. Aortic valve stenosis post SAVR/bio-prosthesis with LA appendage ligation 6. Recurrent paroxysmal atrial flutter with rapid ventricular response [id number] score of 5 on DOAC's/Eliquis 7. HTN 8. Hypercholesterolemia 9. Bacteremia - endocarditis unlikely 10. GERD and hiatal hernia, h/o rectal bleed post polypectomy PLAN: 1. Empiric antibiotics, wean oral steroids with GI protection, BD, O2 to maintain saO2>90%, COVID 19 PCR negative 2. Continue Toprol XL 100 qd and dose titration hemodynamics permitting 3. Continue Cardizem CD 120 qd and dose titration hemodynamics permitting 4. Continue Atorvastatin 40 qd 5. Continue Eliquis 5 bid 6. Resume oral diuretics with monitoring of diuretic response, renal function and electrolytes 7. As outlined in yesterday's note ideally if atrial flutter is persistent with rapid ventricular response early intervention is recommended/elective synchronized cardioversion- to be deferred at this point pending improvement of his respiratory status and now his neurological status
--- NOTE | 2019-09-09 12:56 | PN ---
Progress Note (short form) - Note Progress Note: calm no distress confused, but he does remember me, he is sittng up in a chair at bedside pt is depressed, wants to go home weaning down high flow Vital Signs - 24 hr 09/08/19 09/08/19 09/08/19 13:53 14:13 17:32 Temperature 97.5 F L 97.3 F L Pulse Rate 83 80 135 H Respiratory 18 18 Rate Blood Pressure 127/70 103/71 O2 Sat by Pulse 96 96 99 Oximetry (%) 09/08/19 09/08/19 09/09/19 20:30 21:00 00:05 Temperature 97.4 F L Pulse Rate 82 Respiratory 18 Rate Blood Pressure 108/68 O2 Sat by Pulse 96 99 96 Oximetry (%) 09/09/19 09/09/19 09/09/19 02:00 04:12 06:00 Temperature 98.1 F 97.5 F L Pulse Rate 83 86 Respiratory 18 18 Rate Blood Pressure 120/69 116/70 O2 Sat by Pulse 96 96 Oximetry (%) 09/09/19 09/09/19 09/09/19 08:10 09:00 09:23 Temperature 97.6 F Pulse Rate 88 Respiratory 19 Rate Blood Pressure 113/75 O2 Sat by Pulse 100 97 97 Oximetry (%) 09/09/19 12:20 Temperature Pulse Rate Respiratory Rate Blood Pressure O2 Sat by Pulse 97 Oximetry (%) Intake & Output 09/06/19 09/07/19 09/08/19 09/09/19 23:59 23:59 23:59 23:59 Intake Total 590 980 130 240 Output Total 1000 Balance 590 980 -870 240 Weight 141 lb 9.6 oz Current Medications Generic Name Dose Route Start Last Admin Trade Name Freq PRN Reason Stop Dose Admin Acetaminophen 650 mg 09/01/19 18:17 Tylenol - PO Q4H PRN FEVER Albuterol Sulfate 2 puff 09/01/19 13:31 Ventolin Hfa Inhaler - IH Q4H PRN SHORT OF BREATH/WHEEZING Apixaban 5 mg 09/01/19 22:00 09/09/19 09:25 Eliquis - PO 5 mg BID MAGI Administration Ascorbic Acid 500 mg 09/01/19 13:45 09/09/19 09:25 Vitamin C - PO 500 mg DAILY MAGI Administration Atorvastatin Calcium 40 mg 09/01/19 22:00 09/08/19 22:00 Lipitor - PO 40 mg HS MAGI Administration Diltiazem HCl 120 mg 09/02/19 11:30 09/09/19 09:25 Cardizem Cd - PO 120 mg DAILY MAGI Administration Furosemide 20 mg 09/09/19 10:00 09/09/19 09:26 Lasix - PO 20 mg DAILY MAGI Administration Haloperidol 5 mg 09/07/19 12:49 09/07/19 21:35 Haldol Injection (Fast Acting) - IM 5 mg Q6H PRN Administration AGITATION Ceftriaxone Sodium 1 gm/ 50 mls @ 100 mls/hr 09/02/19 12:45 09/09/19 09:26 Dextrose IVPB 100 mls/hr DAILY MAGI Administration Metoprolol Succinate 50 mg/ 75 mg 09/08/19 10:00 09/09/19 09:25 Metoprolol Succinate 25 mg PO 75 mg BID [facility] Administration Pantoprazole Sodium 40 mg 09/08/19 10:00 09/09/19 09:26 Protonix - PO 40 mg DAILY [facility] Administration Prednisone 20 mg 09/08/19 10:00 09/09/19 09:26 Deltasone - PO 20 mg DAILY [facility] Administration Zinc Sulfate 220 mg 09/01/19 13:45 09/09/19 09:26 Orazinc - PO 220 mg BID MAGI Administration Microbiology 09/02/19 17:30 Blood - Peripheral Venous Blood Culture - Final NO GROWTH AFTER 5 DAYS INCUBATION 09/02/19 18:00 Blood - Peripheral Venous Blood Culture - Final NO GROWTH AFTER 5 DAYS INCUBATION 09/01/19 10:28 Blood - Peripheral Venous Blood Culture - Final NO GROWTH AFTER 5 DAYS INCUBATION 09/01/19 10:28 Blood - Peripheral Venous Blood Culture - Final Staph Hominis Sub Sp Hominis 09/02/19 17:15 Urine For Antigen Detection Legionella Antigen - Final 09/02/19 17:15 Urine For Antigen Detection Streptococcus pneumoniae Antigen (M - Final S1S2 RRR lungs decreased Abd--Soft, NT, BS+ Ext-- no edema A/P continue prednisone taper continue with lasix continue iv antibiotics restraints to prevent pulling out equipments spoke with pt's own Pychiatrist- Dr Medina inflammatory markers- monitor weaning down O2 PT eval Problem List - Problems (1) Acute respiratory failure with hypoxia Code(s): J96.01 - ACUTE RESPIRATORY FAILURE WITH HYPOXIA (2) Suspected 2019 novel coronavirus infection Code(s): Z20.828 - CONTACT W AND EXPOSURE TO [facility] VIRAL COMMUNICABLE DISEASES (3) Aortic valve stenosis Code(s): I35.0 - NONRHEUMATIC AORTIC (VALVE) STENOSIS (4) Atrial fibrillation Code(s): I48.91 - UNSPECIFIED ATRIAL FIBRILLATION (5) CAD (coronary artery disease) Code(s): I25.10 - ATHSCL HEART DISEASE OF [place] CORONARY ARTERY W/O ANG PCTRS (6) HTN (hypertension) Code(s): I10 - ESSENTIAL (PRIMARY) HYPERTENSION Qualifiers:
[2019-09-09] MEDS: MIRTAZAPINE 15 MG TABLET (FP) PO SCH (13:41)
--- NOTE | 2019-09-09 15:15 | PN ---
Progress Note (short form) - Note Progress Note: Clinically breathing appears improved on HFOT (45L / 50% FiO2). Mental status is better. His is at the bedside. Reports less SOB and cough. No acute events overnight. Intake & Output 09/06/19 09/07/19 09/08/19 09/09/19 23:59 23:59 23:59 23:59 Intake Total 590 980 130 240 Output Total 1000 550 Balance 590 980 -870 -310 Weight 141 lb 9.6 oz Last Vital Signs Temp Pulse Resp BP Pulse Ox 98.3 F 93 H 20 113/76 99 09/09/19 14:18 09/09/19 14:18 09/09/19 14:18 09/09/19 14:18 09/09/19 14:18 Active Medications Acetaminophen (Tylenol -) 650 mg PO Q4H PRN PRN Reason: FEVER Albuterol Sulfate (Ventolin Hfa Inhaler -) 2 puff IH Q4H PRN PRN Reason: SHORT OF BREATH/WHEEZING Apixaban (Eliquis -) 5 mg PO BID [facility] Last Admin: 09/09/19 09:25 Dose: 5 mg Documented by: Ascorbic Acid (Vitamin C -) 500 mg PO DAILY [facility] Last Admin: 09/09/19 09:25 Dose: 500 mg Documented by: Atorvastatin Calcium (Lipitor -) 40 mg PO HS [facility] Last Admin: 09/08/19 22:00 Dose: 40 mg Documented by: Diltiazem HCl (Cardizem Cd -) 120 mg PO DAILY [facility] Last Admin: 09/09/19 09:25 Dose: 120 mg Documented by: Furosemide (Lasix -) 20 mg PO DAILY [facility] Last Admin: 09/09/19 09:26 Dose: 20 mg Documented by: Haloperidol (Haldol Injection (Fast Acting) -) 5 mg IM Q6H PRN PRN Reason: AGITATION Last Admin: 09/07/19 21:35 Dose: 5 mg Documented by: Ceftriaxone Sodium 1 gm/ (Dextrose) 50 mls @ 100 mls/hr IVPB DAILY [facility] Last Admin: 09/09/19 09:26 Dose: 100 mls/hr Documented by: Metoprolol Succinate 50 mg/ (Metoprolol Succinate 25 mg) 75 mg PO BID [facility] Last Admin: 09/09/19 09:25 Dose: 75 mg Documented by: Mirtazapine (Remeron -) 7.5 mg PO DAILY [facility] Last Admin: 09/09/19 13:41 Dose: 7.5 mg Documented by: Pantoprazole Sodium (Protonix -) 40 mg PO DAILY [facility] Last Admin: 09/09/19 09:26 Dose: 40 mg Documented by: Prednisone (Deltasone -) 20 mg PO DAILY [facility] Last Admin: 09/09/19 09:26 Dose: 20 mg Documented by: Zinc Sulfate (Orazinc -) 220 mg PO BID [facility] Last Admin: 09/09/19 09:26 Dose: 220 mg Documented by: Constitutional: Yes: Less tachypneic at rest, awake and alert Eyes: Yes: WNL HENT: Yes: WNL Neck: Yes: WNL Cardiovascular: Yes: Regular Rate and Rhythm, S1, S2 Respiratory: Yes: HFOT, bilateral rhonchi and Rales Gastrointestinal: Yes: Normal Bowel Sounds, Soft Extremities: Yes: WNL Edema: No Labs: Problem List - Problems (1) Acute on chronic diastolic (congestive) heart failure Code(s): I50.33 - ACUTE ON CHRONIC DIASTOLIC (CONGESTIVE) HEART FAILURE (2) Acute respiratory failure with hypoxia Code(s): J96.01 - ACUTE RESPIRATORY FAILURE WITH HYPOXIA (3) Suspected 2019 novel coronavirus infection Code(s): Z20.828 - CONTACT W AND EXPOSURE TO [facility] VIRAL COMMUNICABLE DISEASES (4) Aortic valve stenosis Code(s): I35.0 - NONRHEUMATIC AORTIC (VALVE) STENOSIS (5) Atrial fibrillation Code(s): I48.91 - UNSPECIFIED ATRIAL FIBRILLATION (6) CAD (coronary artery disease) Code(s): I25.10 - ATHSCL HEART DISEASE OF [place] CORONARY ARTERY W/O ANG PCTRS (7) HTN (hypertension) Code(s): I10 - ESSENTIAL (PRIMARY) HYPERTENSION Qualifiers: Assessment/Plan Confusion & Agitation : precipitated by steroids (?) Acute Hypoxic Respiratory Failure Suspect COVID19 or residual disease CAD s/p CABG LV Diastolic Dysfunction Paroxysmal Atrial Fibrillation Aortic Stenosis s/p AVR HTN Hypercholesterolemia - Wean HFOT support as tolerated - ABX per ID - Prednisone - rate control - anticoagulation - pulse oximetry monitoring Dr Gonzalez
[2019-09-09] MEDS: ATORVASTATIN CA 40 MG TABLET (FP) PO SCH (21:17)
--- NOTE | 2019-09-09 21:21 | PN ---
Progress Note, Physician History of Present Illness: PATIENT LESS CONFUSED SEATED IN BED APPEARS COMFORTABLE ON HIGH FLOW O2 NO COMPLAINTS DENIES CHEST PAIN/ DYSPNEA AFEBRILE , WBC IMPROVED REPEAT COVID-19 SWAB NEGATIVE BC SCN X 1 BOTTLE C/W CONTAMINATION REPEAT BC NO GROWTH CT CHEST FINDINGS NOTED LEGIONELLA (-) - Current Medication List Current Medications: Active Medications Acetaminophen (Tylenol -) 650 mg PO Q4H PRN PRN Reason: FEVER Albuterol Sulfate (Ventolin Hfa Inhaler -) 2 puff IH Q4H PRN PRN Reason: SHORT OF BREATH/WHEEZING Apixaban (Eliquis -) 5 mg PO BID [facility] Last Admin: 09/09/19 09:25 Dose: 5 mg Documented by: Ascorbic Acid (Vitamin C -) 500 mg PO DAILY [facility] Last Admin: 09/09/19 09:25 Dose: 500 mg Documented by: Atorvastatin Calcium (Lipitor -) 40 mg PO HS [facility] Last Admin: 09/08/19 22:00 Dose: 40 mg Documented by: Diltiazem HCl (Cardizem Cd -) 120 mg PO DAILY [facility] Last Admin: 09/09/19 09:25 Dose: 120 mg Documented by: Furosemide (Lasix -) 20 mg PO DAILY [facility] Last Admin: 09/09/19 09:26 Dose: 20 mg Documented by: Haloperidol (Haldol Injection (Fast Acting) -) 5 mg IM Q6H PRN PRN Reason: AGITATION Last Admin: 09/07/19 21:35 Dose: 5 mg Documented by: Ceftriaxone Sodium 1 gm/ (Dextrose) 50 mls @ 100 mls/hr IVPB DAILY [facility] Last Admin: 09/09/19 09:26 Dose: 100 mls/hr Documented by: Metoprolol Succinate 50 mg/ (Metoprolol Succinate 25 mg) 75 mg PO BID [facility] Last Admin: 09/09/19 09:25 Dose: 75 mg Documented by: Mirtazapine (Remeron -) 7.5 mg PO DAILY [facility] Last Admin: 09/09/19 13:41 Dose: 7.5 mg Documented by: Pantoprazole Sodium (Protonix -) 40 mg PO DAILY [facility] Last Admin: 09/09/19 09:26 Dose: 40 mg Documented by: Prednisone (Deltasone -) 20 mg PO DAILY [facility] Last Admin: 09/09/19 09:26 Dose: 20 mg Documented by: Zinc Sulfate (Orazinc -) 220 mg PO BID [facility] Last Admin: 09/09/19 09:26 Dose: 220 mg Documented by: - Objective Vital Signs: Vital Signs Temperature 97.6 F 09/09/19 21:13 Pulse Rate 86 09/09/19 21:13 Respiratory Rate 20 09/09/19 21:13 Blood Pressure 103/61 09/09/19 21:13 O2 Sat by Pulse Oximetry (%) 96 09/09/19 21:07 Constitutional: Yes: No Distress Eyes: Yes: Conjunctiva Clear Cardiovascular: Yes: Regular Rate and Rhythm, S1, S2 Respiratory: Yes: Diminished Gastrointestinal: Yes: Normal Bowel Sounds, Soft Edema: No Labs: CBC, BMP 09/08/19 06:35 09/08/19 06:35 INR, PTT INR 2.95 (0.83-1.09) H 09/01/19 10:38 Assessment/Plan BILATERAL PNEUMONITIS ? ETIOLOGY COVID-19 NEGATIVE X 2 TOXIC METABOLIC ENCEPHALOPATHY +BC SCN X 1 BOTTLE LIKELY CONTAMINANT ?CHF LACTIC ACIDOSIS CONTINUE CEFTRIAXONE ECHOCARDIOGRAM NOTED
[2019-09-10 07:30] LABS: BASO % 0.3 % (0-2.0); EOS % 0.3 % (0-4.5); HEMATOCRIT 35.6 % (35.4-49); HEMOGLOBIN 11.5 GM/dL (11.7-16.9); LYMPH % 4.4 % (8-40); MCH 29.7 pg (25.7-33.7); MCHC 32.2 g/dl (32.0-35.9); MEAN CELL VOLUME 92.3 fl (80-96); MEAN PLT VOLUME 7.9 fl (7.5-11.1); MONO % 1.8 % (3.8-10.2); NEUT % 93.2 % (42.8-82.8); PLATELET COUNT 264 K/MM3 (134-434); RBC 3.86 M/mm3 (4.00-5.60); RDW 14.1 % (11.9-15.9); WHITE BLOOD COUNT 13.5 K/mm3 (4.0-10.0)
[2019-09-10 07:45] LABS: BILIRUBIN,TOTAL 0.7 mg/dL (0.2-1); CALCIUM 7.7 mg/dL (8.5-10.1); CREATININE 0.9 mg/dL (0.55-1.3); TOT PROT 6.8 g/dl (6.4-8.2)
[2019-09-10] MEDS ORDERED: metoPROLOL SUCCINATE 25 MG TAB.SR.24H (FP) ONE ×2 (08:26→21:56)
[2019-09-10] MEDS ORDERED: DEXTROSE 5%-WATER - 50 ML IVPB ONE (08:28)
[2019-09-10] MEDS ORDERED: cefTRIAXone SODIUM 1 GM VIAL ONE (08:28)
[2019-09-10] MEDS ORDERED: PT OWN MED DRAWER 7, Y5N ONE (08:29)
[2019-09-10] MEDS: CEFTRIAXONE 1 GM in DEXTROSE 5%-WATER - 50 ML IVPB SCH (09:09)
[2019-09-10] MEDS: ZINC SULFATE 220 MG CAPSULE (FP) PO SCH ×2 (09:10→22:01)
[2019-09-10] MEDS: APIXABAN 5 MG TABLET PO SCH ×2 (09:10→22:01)
[2019-09-10] MEDS: METOPROLOL SUCCINATE 50 MG, METOPROLOL SUCCINATE 25 MG PO SCH ×2 (09:10→22:00)
[2019-09-10] MEDS: PANTOPRAZOLE 40 MG TABLET PO SCH (09:11)
[2019-09-10] MEDS: FUROSEMIDE 20 MG TABLET (FP) PO SCH (09:11)
[2019-09-10] MEDS: predniSONE 20 MG TABLET (UD) PO SCH (09:11)
[2019-09-10] MEDS: ASCORBIC ACID 500 MG TABLET (FP) PO SCH (09:12)
[2019-09-10] MEDS: MIRTAZAPINE 15 MG TABLET (FP) PO SCH (09:13)
--- NOTE | 2019-09-10 09:47 | PN ---
Progress Note (short form) - Note Progress Note: Easily desaturates on activity. Covid negative; heart rate better today Vital Signs Temperature 97.8 F 09/10/19 09:03 Pulse Rate 70 09/10/19 09:03 Respiratory Rate 20 09/10/19 09:03 Blood Pressure 125/59 L 09/10/19 09:03 O2 Sat by Pulse Oximetry (%) 97 09/10/19 09:03 Cardiovascular: Yes: Pulse Irregular Respiratory: Yes: Diminished, SOB, ) Gastrointestinal: Yes: Normal Bowel Sounds, Soft Edema: No Labs: CBC, BMP 09/10/19 05:40 09/10/19 05:40 Active Medications Acetaminophen (Tylenol -) 650 mg PO Q4H PRN PRN Reason: FEVER Albuterol Sulfate (Ventolin Hfa Inhaler -) 2 puff IH Q4H PRN PRN Reason: SHORT OF BREATH/WHEEZING Apixaban (Eliquis -) 5 mg PO BID [facility] Last Admin: 09/10/19 09:10 Dose: 5 mg Documented by: Ascorbic Acid (Vitamin C -) 500 mg PO DAILY [facility] Last Admin: 09/10/19 09:12 Dose: 500 mg Documented by: Atorvastatin Calcium (Lipitor -) 40 mg PO HS [facility] Last Admin: 09/09/19 21:17 Dose: 40 mg Documented by: Diltiazem HCl (Cardizem Cd -) 120 mg PO DAILY [facility] Last Admin: 09/10/19 09:11 Dose: 120 mg Documented by: Furosemide (Lasix -) 20 mg PO DAILY [facility] Last Admin: 09/10/19 09:11 Dose: 20 mg Documented by: Haloperidol (Haldol Injection (Fast Acting) -) 5 mg IM Q6H PRN PRN Reason: AGITATION Last Admin: 09/07/19 21:35 Dose: 5 mg Documented by: Ceftriaxone Sodium 1 gm/ (Dextrose) 50 mls @ 100 mls/hr IVPB DAILY [facility] Last Admin: 09/10/19 09:09 Dose: 100 mls/hr Documented by: Metoprolol Succinate 50 mg/ (Metoprolol Succinate 25 mg) 75 mg PO BID [facility] Last Admin: 09/10/19 09:10 Dose: 75 mg Documented by: Mirtazapine (Remeron -) 7.5 mg PO DAILY [facility] Last Admin: 09/10/19 09:13 Dose: 7.5 mg Documented by: Pantoprazole Sodium (Protonix -) 40 mg PO DAILY [facility] Last Admin: 09/10/19 09:11 Dose: 40 mg Documented by: Prednisone (Deltasone -) 20 mg PO DAILY [facility] Last Admin: 09/10/19 09:11 Dose: 20 mg Documented by: Zinc Sulfate (Orazinc -) 220 mg PO BID [facility] Last Admin: 09/10/19 09:10 Dose: 220 mg Documented by: Problem List - Problems (1) Acute respiratory failure with hypoxia Code(s): J96.01 - ACUTE RESPIRATORY FAILURE WITH HYPOXIA (2) Suspected 2019 novel coronavirus infection Code(s): Z20.828 - CONTACT W AND EXPOSURE TO [facility] VIRAL COMMUNICABLE DISEASES (3) Acute on chronic diastolic (congestive) heart failure Code(s): I50.33 - ACUTE ON CHRONIC DIASTOLIC (CONGESTIVE) HEART FAILURE Assessment/Plan Assessment/Plan - Problems (1) CAD (coronary artery disease) Code(s): I25.10 - ATHSCL HEART DISEASE OF [place] CORONARY ARTERY W/O ANG PCTRS (2) Hx of CABG Code(s): Z95.1 - PRESENCE OF AORTOCORONARY BYPASS GRAFT (3) S/P AVR (aortic valve replacement) Code(s): Z95.2 - PRESENCE OF PROSTHETIC HEART VALVE (4) S/P left atrial appendage ligation Code(s): Z98.890 - OTHER SPECIFIED POSTPROCEDURAL STATES (5) Aortic valve stenosis Code(s): I35.0 - NONRHEUMATIC AORTIC (VALVE) STENOSIS (6) Atrial fibrillation Code(s): I48.91 - UNSPECIFIED ATRIAL FIBRILLATION (7) HTN (hypertension) Code(s): I10 - ESSENTIAL (PRIMARY) HYPERTENSION Qualifiers: Hypertension type: essential hypertension Qualified Code(s): I10 - Essential (primary) hypertension (8) Hypercholesterolemia Code(s): E78.00 - PURE HYPERCHOLESTEROLEMIA, UNSPECIFIED (9) GERD (gastroesophageal reflux disease) Code(s): K21.9 - GASTRO-ESOPHAGEAL REFLUX DISEASE WITHOUT ESOPHAGITIS (10) Hiatal hernia Code(s): K44.9 - DIAPHRAGMATIC HERNIA WITHOUT OBSTRUCTION OR GANGRENE (11) GI bleed Code(s): K92.2 - GASTROINTESTINAL HEMORRHAGE, UNSPECIFIED Qualifiers: GI bleed type/associated pathology: unspecified gastrointestinal hemorrhage type Qualified Code(s): K92.2 - Gastrointestinal hemorrhage, unspecified Assessment/Plan Echo 09/03/2019 Post-op septal motion, normal LVEF 50-55%, mod cLVH, normal RV size and fxn, mild LAE, mild MR, TR, bioAVR, mild AR, restrictive physiology Echocardiography October 12, 2018 revealed mild degree of concentric left ventricular hypertrophy with normal left ventricular systolic function and estimated LVEF between 65-70%, mild left atrial dilatation, normal right ventricular size and systolic function, aortic valve bioprosthesis with no aortic valve insufficiency, moderately dilated ascending aorta, mild thickening of the mitral valve leaflets with mild mitral valve regurgitation, mild to moderate tricuspid valve regurgitation with calculated RVSP of [address]: Small-moderate right and very small left effusion, pulm edema TAA 3.9 cm 1. Altered mental status metabolic encephalopathy 2. Acute hypoxic respiratory failure related to bronchopneumonia with probable sepsis syndrome, negative Covid 3. Acute on chronic class II-III NYHA classification LV diastolic heart failure improving 4. CAD post CABG angina pectoris 5. Aortic valve stenosis post SAVR/bio-prosthesis with LA appendage ligation 6. Recurrent paroxysmal atrial flutter with rapid ventricular response [id number] score of 5 on DOAC's/Eliquis 7. HTN 8. Hypercholesterolemia 9. Bacteremia - endocarditis unlikely 10. GERD and hiatal hernia, h/o rectal bleed post polypectomy 11: AFL PLAN: 1. bilat pnumonitis management per primaty team 2. Continue Toprol XL 100 qd and dose titration hemodynamics permitting 3. Continue Cardizem CD 120 qd and dose titration hemodynamics permitting 4. Continue Atorvastatin 40 qd 5. Continue Eliquis 5 bid 6. Cont oral diuretics with monitoring of diuretic response, renal function and electrolytes
[2019-09-10 10:00] LABS: ANISOCYTOSIS 1+; MACROCYTOSIS 0; PLATELET ESTIMATE NORMAL
--- NOTE | 2019-09-10 10:32 | PN ---
Progress Note, Physician History of Present Illness: pt seen/ examined Chart is reviewed awake/comfortable mood stable all f/u noted walking in guy way with PT - Current Medication List Current Medications: Active Medications Acetaminophen (Tylenol -) 650 mg PO Q4H PRN PRN Reason: FEVER Albuterol Sulfate (Ventolin Hfa Inhaler -) 2 puff IH Q4H PRN PRN Reason: SHORT OF BREATH/WHEEZING Apixaban (Eliquis -) 5 mg PO BID [facility] Last Admin: 09/10/19 09:10 Dose: 5 mg Documented by: Ascorbic Acid (Vitamin C -) 500 mg PO DAILY [facility] Last Admin: 09/10/19 09:12 Dose: 500 mg Documented by: Atorvastatin Calcium (Lipitor -) 40 mg PO HS [facility] Last Admin: 09/09/19 21:17 Dose: 40 mg Documented by: Diltiazem HCl (Cardizem Cd -) 120 mg PO DAILY [facility] Last Admin: 09/10/19 09:11 Dose: 120 mg Documented by: Furosemide (Lasix -) 20 mg PO DAILY [facility] Last Admin: 09/10/19 09:11 Dose: 20 mg Documented by: Haloperidol (Haldol Injection (Fast Acting) -) 5 mg IM Q6H PRN PRN Reason: AGITATION Last Admin: 09/07/19 21:35 Dose: 5 mg Documented by: Ceftriaxone Sodium 1 gm/ (Dextrose) 50 mls @ 100 mls/hr IVPB DAILY [facility] Last Admin: 09/10/19 09:09 Dose: 100 mls/hr Documented by: Metoprolol Succinate 50 mg/ (Metoprolol Succinate 25 mg) 75 mg PO BID [facility] Last Admin: 09/10/19 09:10 Dose: 75 mg Documented by: Mirtazapine (Remeron -) 7.5 mg PO DAILY [facility] Last Admin: 09/10/19 09:13 Dose: 7.5 mg Documented by: Pantoprazole Sodium (Protonix -) 40 mg PO DAILY [facility] Last Admin: 09/10/19 09:11 Dose: 40 mg Documented by: Prednisone (Deltasone -) 20 mg PO DAILY [facility] Last Admin: 09/10/19 09:11 Dose: 20 mg Documented by: Zinc Sulfate (Orazinc -) 220 mg PO BID [facility] Last Admin: 09/10/19 09:10 Dose: 220 mg Documented by: - Objective Vital Signs: Vital Signs Temperature 97.8 F 09/10/19 09:03 Pulse Rate 70 09/10/19 09:03 Respiratory Rate 20 09/10/19 09:03 Blood Pressure 125/59 L 09/10/19 09:03 O2 Sat by Pulse Oximetry (%) 97 09/10/19 09:03 Constitutional: Yes: No Distress, Calm Neck: Yes: Supple Cardiovascular: Yes: Regular Rate and Rhythm Respiratory: Yes: Diminished Gastrointestinal: Yes: Soft Edema: No Neurological: Yes: Alert Psychiatric: Yes: Alert Labs: CBC, BMP 09/10/19 05:40 09/10/19 05:40 INR, PTT INR 2.95 (0.83-1.09) H 09/01/19 10:38 Problem List - Problems (1) Acute on chronic diastolic (congestive) heart failure Code(s): I50.33 - ACUTE ON CHRONIC DIASTOLIC (CONGESTIVE) HEART FAILURE (2) Acute respiratory failure with hypoxia Code(s): J96.01 - ACUTE RESPIRATORY FAILURE WITH HYPOXIA (3) Suspected 2019 novel coronavirus infection Code(s): Z20.828 - CONTACT W AND EXPOSURE TO [facility] VIRAL COMMUNICABLE DISEASES (4) Aortic aneurysm Code(s): I71.9 - AORTIC ANEURYSM OF UNSPECIFIED SITE, WITHOUT RUPTURE (5) Atrial fibrillation Code(s): I48.91 - UNSPECIFIED ATRIAL FIBRILLATION (6) Aortic aneurysm Code(s): I71.9 - AORTIC ANEURYSM OF UNSPECIFIED SITE, WITHOUT RUPTURE (7) History of depression Code(s): Z86.59 - PERSONAL HISTORY OF OTHER MENTAL AND BEHAVIORAL DISORDERS (8) Hx of CABG Code(s): Z95.1 - PRESENCE OF AORTOCORONARY BYPASS GRAFT (9) S/P AVR (aortic valve replacement) Code(s): Z95.2 - PRESENCE OF PROSTHETIC HEART VALVE Assessment/Plan Clinically looks better Continue Abx as per i/d PT D/W RN also Will continue to follow
--- NOTE | 2019-09-10 14:21 | PN ---
Progress Note, Physician History of Present Illness: AWAKE AND ALERT ORIENTED SEATED IN BED APPEARS COMFORTABLE ON NC O2 O2 SATS 95-97% ON 3L BUT DESATS WITH ACTIVITY AMBULATED WITH ASSISTANCE NO COMPLAINTS DENIES CHEST PAIN/ DYSPNEA AFEBRILE , WBC SL ELEVATED ON PREDNISONE COVID-19 SWAB NEGATIVE X2 BC SCN X 1 BOTTLE C/W CONTAMINATION REPEAT BC NO GROWTH CT CHEST FINDINGS NOTED LEGIONELLA (-) - Current Medication List Current Medications: Active Medications Acetaminophen (Tylenol -) 650 mg PO Q4H PRN PRN Reason: FEVER Albuterol Sulfate (Ventolin Hfa Inhaler -) 2 puff IH Q4H PRN PRN Reason: SHORT OF BREATH/WHEEZING Apixaban (Eliquis -) 5 mg PO BID [facility] Last Admin: 09/10/19 09:10 Dose: 5 mg Documented by: Ascorbic Acid (Vitamin C -) 500 mg PO DAILY [facility] Last Admin: 09/10/19 09:12 Dose: 500 mg Documented by: Atorvastatin Calcium (Lipitor -) 40 mg PO HS [facility] Last Admin: 09/09/19 21:17 Dose: 40 mg Documented by: Diltiazem HCl (Cardizem Cd -) 120 mg PO DAILY [facility] Last Admin: 09/10/19 09:11 Dose: 120 mg Documented by: Furosemide (Lasix -) 20 mg PO DAILY [facility] Last Admin: 09/10/19 09:11 Dose: 20 mg Documented by: Haloperidol (Haldol Injection (Fast Acting) -) 5 mg IM Q6H PRN PRN Reason: AGITATION Last Admin: 09/07/19 21:35 Dose: 5 mg Documented by: Ceftriaxone Sodium 1 gm/ (Dextrose) 50 mls @ 100 mls/hr IVPB DAILY [facility] Last Admin: 09/10/19 09:09 Dose: 100 mls/hr Documented by: Metoprolol Succinate 50 mg/ (Metoprolol Succinate 25 mg) 75 mg PO BID [facility] Last Admin: 09/10/19 09:10 Dose: 75 mg Documented by: Mirtazapine (Remeron -) 7.5 mg PO DAILY [facility] Last Admin: 09/10/19 09:13 Dose: 7.5 mg Documented by: Pantoprazole Sodium (Protonix -) 40 mg PO DAILY [facility] Last Admin: 09/10/19 09:11 Dose: 40 mg Documented by: Prednisone (Deltasone -) 20 mg PO DAILY [facility] Last Admin: 09/10/19 09:11 Dose: 20 mg Documented by: Zinc Sulfate (Orazinc -) 220 mg PO BID [facility] Last Admin: 09/10/19 09:10 Dose: 220 mg Documented by: - Objective Vital Signs: Vital Signs Temperature 98.4 F 09/10/19 13:00 Pulse Rate 78 09/10/19 13:00 Respiratory Rate 20 09/10/19 13:00 Blood Pressure 106/69 09/10/19 13:00 O2 Sat by Pulse Oximetry (%) 96 09/10/19 13:00 Constitutional: Yes: No Distress Eyes: Yes: Conjunctiva Clear Cardiovascular: Yes: Regular Rate and Rhythm, S1, S2 Respiratory: Yes: CTA Bilaterally Gastrointestinal: Yes: Normal Bowel Sounds, Soft. No: Tenderness Edema: No Labs: CBC, BMP 09/10/19 05:40 09/10/19 05:40 INR, PTT INR 2.95 (0.83-1.09) H 09/01/19 10:38 Assessment/Plan BILATERAL PNEUMONITIS ? ETIOLOGY CLINICALLY IMPROVED COVID-19 NEGATIVE X 2 TOXIC METABOLIC ENCEPHALOPATHY RESOLVED +BC SCN X 1 BOTTLE LIKELY CONTAMINANT ?CHF LACTIC ACIDOSIS CONTINUE CEFTRIAXONE
--- NOTE | 2019-09-10 15:54 | PN ---
Progress Note (short form) - Note Progress Note: Clinically breathing appears improved on 3 L NC O2. Reports less SOB and cough. No acute events overnight. Intake & Output 09/07/19 09/08/19 09/09/19 09/10/19 23:59 23:59 23:59 23:59 Intake Total 980 130 770 650 Output Total 1000 850 320 Balance 980 -870 -80 330 Weight 141 lb 9.6 oz Last Vital Signs Temp Pulse Resp BP Pulse Ox 98.4 F 78 20 106/69 95 09/10/19 13:00 09/10/19 13:00 09/10/19 13:00 09/10/19 13:00 09/10/19 15:21 Active Medications Acetaminophen (Tylenol -) 650 mg PO Q4H PRN PRN Reason: FEVER Albuterol Sulfate (Ventolin Hfa Inhaler -) 2 puff IH Q4H PRN PRN Reason: SHORT OF BREATH/WHEEZING Apixaban (Eliquis -) 5 mg PO BID [facility] Last Admin: 09/10/19 09:10 Dose: 5 mg Documented by: Ascorbic Acid (Vitamin C -) 500 mg PO DAILY [facility] Last Admin: 09/10/19 09:12 Dose: 500 mg Documented by: Atorvastatin Calcium (Lipitor -) 40 mg PO HS [facility] Last Admin: 09/09/19 21:17 Dose: 40 mg Documented by: Diltiazem HCl (Cardizem Cd -) 120 mg PO DAILY [facility] Last Admin: 09/10/19 09:11 Dose: 120 mg Documented by: Furosemide (Lasix -) 20 mg PO DAILY [facility] Last Admin: 09/10/19 09:11 Dose: 20 mg Documented by: Haloperidol (Haldol Injection (Fast Acting) -) 5 mg IM Q6H PRN PRN Reason: AGITATION Last Admin: 09/07/19 21:35 Dose: 5 mg Documented by: Ceftriaxone Sodium 1 gm/ (Dextrose) 50 mls @ 100 mls/hr IVPB DAILY [facility] Last Admin: 09/10/19 09:09 Dose: 100 mls/hr Documented by: Metoprolol Succinate 50 mg/ (Metoprolol Succinate 25 mg) 75 mg PO BID [facility] Last Admin: 09/10/19 09:10 Dose: 75 mg Documented by: Mirtazapine (Remeron -) 7.5 mg PO DAILY [facility] Last Admin: 09/10/19 09:13 Dose: 7.5 mg Documented by: Pantoprazole Sodium (Protonix -) 40 mg PO DAILY [facility] Last Admin: 09/10/19 09:11 Dose: 40 mg Documented by: Prednisone (Deltasone -) 20 mg PO DAILY [facility] Last Admin: 09/10/19 09:11 Dose: 20 mg Documented by: Zinc Sulfate (Orazinc -) 220 mg PO BID [facility] Last Admin: 09/10/19 09:10 Dose: 220 mg Documented by: Constitutional: Yes: Less tachypneic at rest, awake and alert Eyes: Yes: WNL HENT: Yes: WNL Neck: Yes: WNL Cardiovascular: Yes: Regular Rate and Rhythm, S1, S2 Respiratory: Yes: HFOT, bilateral rhonchi and Rales Gastrointestinal: Yes: Normal Bowel Sounds, Soft Extremities: Yes: WNL Edema: No Labs: Laboratory Results - last 24 hr 09/10/19 09/10/19 09/10/19 05:40 05:40 05:40 WBC 13.5 H RBC 3.86 L Hgb 11.5 L Hct 35.6 MCV 92.3 MCH 29.7 MCHC 32.2 RDW 14.1 Plt Count 264 MPV 7.9 Absolute Neuts (auto) 12.6 H Neutrophils % 93.2 H Neutrophils % (Manual) 90.7 H Band Neutrophils % 0.0 Lymphocytes % 4.4 L Lymphocytes % (Manual) 6.2 L D Monocytes % 1.8 L Monocytes % (Manual) 1 L D Eosinophils % 0.3 D Eosinophils % (Manual) 2.1 D Basophils % 0.3 Basophils % (Manual) 0.0 Myelocytes % (Man) 0 Promyelocytes % (Man) 0 Blast Cells % (Manual) 0 Nucleated RBC % 0 Metamyelocytes 0 Hypochromia 0 Platelet Estimate Normal Polychromasia 0 Poikilocytosis 0 Anisocytosis 1+ Microcytosis 1+ Macrocytosis 0 D-Dimer 800 H Sodium 140 Potassium 4.0 Chloride 106 Carbon Dioxide 28 Anion Gap 6 L BUN 37.0 H Creatinine 0.9 Est GFR (CKD-EPI)AfAm 95.15 Est GFR (CKD-EPI)NonAf 82.09 Random Glucose 93 Calcium 7.7 L Total Bilirubin 0.7 AST 49 H ALT 114 H Alkaline Phosphatase 91 LD Total 499 H C-Reactive Protein 4.4 H Total Protein 6.8 Albumin 2.0 L Problem List - Problems (1) Acute on chronic diastolic (congestive) heart failure Code(s): I50.33 - ACUTE ON CHRONIC DIASTOLIC (CONGESTIVE) HEART FAILURE (2) Acute respiratory failure with hypoxia Code(s): J96.01 - ACUTE RESPIRATORY FAILURE WITH HYPOXIA (3) Suspected 2019 novel coronavirus infection Code(s): Z20.828 - CONTACT W AND EXPOSURE TO OTH VIRAL COMMUNICABLE DISEASES (4) Aortic valve stenosis Code(s): I35.0 - NONRHEUMATIC AORTIC (VALVE) STENOSIS (5) Atrial fibrillation Code(s): I48.91 - UNSPECIFIED ATRIAL FIBRILLATION (6) CAD (coronary artery disease) Code(s): I25.10 - ATHSCL HEART DISEASE OF [place] CORONARY ARTERY W/O ANG PCTRS (7) HTN (hypertension) Code(s): I10 - ESSENTIAL (PRIMARY) HYPERTENSION Qualifiers: Assessment/Plan Confusion & Agitation : precipitated by steroids (?) Acute Hypoxic Respiratory Failure Suspect COVID19 or residual disease CAD s/p CABG LV Diastolic Dysfunction Paroxysmal Atrial Fibrillation Aortic Stenosis s/p AVR HTN Hypercholesterolemia - NC O2 as tolerated - ABX per ID - Prednisone - rate control - anticoagulation - pulse oximetry monitoring Dr Gonzalez
[2019-09-10] MEDS: ATORVASTATIN CA 40 MG TABLET (FP) PO SCH (22:01)
[2019-09-11] MEDS ORDERED: metoPROLOL SUCCINATE 25 MG TAB.SR.24H (FP) ONE ×2 (09:39→21:59)
[2019-09-11] MEDS ORDERED: cefTRIAXone SODIUM 1 GM VIAL ONE (09:41)
[2019-09-11] MEDS ORDERED: DEXTROSE 5%-WATER - 50 ML IVPB ONE (09:41)
[2019-09-11] MEDS: CEFTRIAXONE 1 GM in DEXTROSE 5%-WATER - 50 ML IVPB SCH (10:04)
[2019-09-11] MEDS: FUROSEMIDE 20 MG TABLET (FP) PO SCH (10:05)
[2019-09-11] MEDS: APIXABAN 5 MG TABLET PO SCH ×2 (10:05→22:00)
[2019-09-11] MEDS: predniSONE 20 MG TABLET (UD) PO SCH (10:05)
[2019-09-11] MEDS: MIRTAZAPINE 15 MG TABLET (FP) PO SCH (10:05)
[2019-09-11] MEDS: ZINC SULFATE 220 MG CAPSULE (FP) PO SCH ×2 (10:05→22:00)
[2019-09-11] MEDS: ASCORBIC ACID 500 MG TABLET (FP) PO SCH (10:06)
[2019-09-11] MEDS: METOPROLOL SUCCINATE 50 MG, METOPROLOL SUCCINATE 25 MG PO SCH ×2 (10:06→22:00)
[2019-09-11] MEDS: PANTOPRAZOLE 40 MG TABLET PO SCH (10:06)
--- NOTE | 2019-09-11 10:47 | PN ---
Progress Note, Physician History of Present Illness: Mental status improved and conversant on NC, rate-controlled afib. - Current Medication List Current Medications: Active Medications Acetaminophen (Tylenol -) 650 mg PO Q4H PRN PRN Reason: FEVER Albuterol Sulfate (Ventolin Hfa Inhaler -) 2 puff IH Q4H PRN PRN Reason: SHORT OF BREATH/WHEEZING Apixaban (Eliquis -) 5 mg PO BID [facility] Last Admin: 09/11/19 10:05 Dose: 5 mg Documented by: Ascorbic Acid (Vitamin C -) 500 mg PO DAILY [facility] Last Admin: 09/11/19 10:06 Dose: 500 mg Documented by: Atorvastatin Calcium (Lipitor -) 40 mg PO HS [facility] Last Admin: 09/10/19 22:01 Dose: 40 mg Documented by: Diltiazem HCl (Cardizem Cd -) 120 mg PO DAILY [facility] Last Admin: 09/11/19 10:05 Dose: 120 mg Documented by: Furosemide (Lasix -) 20 mg PO DAILY [facility] Last Admin: 09/11/19 10:05 Dose: 20 mg Documented by: Haloperidol (Haldol Injection (Fast Acting) -) 5 mg IM Q6H PRN PRN Reason: AGITATION Last Admin: 09/07/19 21:35 Dose: 5 mg Documented by: Ceftriaxone Sodium 1 gm/ (Dextrose) 50 mls @ 100 mls/hr IVPB DAILY [facility] Last Admin: 09/11/19 10:04 Dose: 100 mls/hr Documented by: Metoprolol Succinate 50 mg/ (Metoprolol Succinate 25 mg) 75 mg PO BID [facility] Last Admin: 09/11/19 10:06 Dose: 75 mg Documented by: Mirtazapine (Remeron -) 7.5 mg PO DAILY [facility] Last Admin: 09/11/19 10:05 Dose: 7.5 mg Documented by: Pantoprazole Sodium (Protonix -) 40 mg PO DAILY [facility] Last Admin: 09/11/19 10:06 Dose: 40 mg Documented by: Prednisone (Deltasone -) 20 mg PO DAILY [facility] Last Admin: 09/11/19 10:05 Dose: 20 mg Documented by: Zinc Sulfate (Orazinc -) 220 mg PO BID [facility] Last Admin: 09/11/19 10:05 Dose: 220 mg Documented by: - Objective Vital Signs: Vital Signs Temperature 98.6 F 09/11/19 06:00 Pulse Rate 80 09/11/19 06:00 Respiratory Rate 18 09/11/19 06:00 Blood Pressure 116/69 09/11/19 06:00 O2 Sat by Pulse Oximetry (%) 97 09/11/19 06:00 Constitutional: Yes: No Distress, Calm, Thin Neck: Yes: Supple Cardiovascular: Yes: Pulse Irregular Respiratory: Yes: Diminished, On Nasal O2, SOB Gastrointestinal: Yes: Normal Bowel Sounds, Soft Edema: No Labs: CBC, BMP 09/10/19 05:40 09/10/19 05:40 INR, PTT INR 2.95 (0.83-1.09) H 09/01/19 10:38 - ....Imaging EKG: Report Reviewed (Tele: Afib @ 80s) Problem List - Problems (1) Acute respiratory failure with hypoxia Code(s): J96.01 - ACUTE RESPIRATORY FAILURE WITH HYPOXIA (2) Suspected 2019 novel coronavirus infection Code(s): Z20.828 - CONTACT W AND EXPOSURE TO OTH VIRAL COMMUNICABLE DISEASES (3) Acute on chronic diastolic (congestive) heart failure Code(s): I50.33 - ACUTE ON CHRONIC DIASTOLIC (CONGESTIVE) HEART FAILURE Assessment/Plan Assessment/Plan - Problems (1) CAD (coronary artery disease) Code(s): I25.10 - ATHSCL HEART DISEASE OF [place] CORONARY ARTERY W/O ANG PCTRS (2) Hx of CABG Code(s): Z95.1 - PRESENCE OF AORTOCORONARY BYPASS GRAFT (3) S/P AVR (aortic valve replacement) Code(s): Z95.2 - PRESENCE OF PROSTHETIC HEART VALVE (4) S/P left atrial appendage ligation Code(s): Z98.890 - OTHER SPECIFIED POSTPROCEDURAL STATES (5) Aortic valve stenosis Code(s): I35.0 - NONRHEUMATIC AORTIC (VALVE) STENOSIS (6) Atrial fibrillation Code(s): I48.91 - UNSPECIFIED ATRIAL FIBRILLATION (7) HTN (hypertension) Code(s): I10 - ESSENTIAL (PRIMARY) HYPERTENSION Qualifiers: Hypertension type: essential hypertension Qualified Code(s): I10 - Essential (primary) hypertension (8) Hypercholesterolemia Code(s): E78.00 - PURE HYPERCHOLESTEROLEMIA, UNSPECIFIED (9) GERD (gastroesophageal reflux disease) Code(s): K21.9 - GASTRO-ESOPHAGEAL REFLUX DISEASE WITHOUT ESOPHAGITIS (10) Hiatal hernia Code(s): K44.9 - DIAPHRAGMATIC HERNIA WITHOUT OBSTRUCTION OR GANGRENE (11) GI bleed Code(s): K92.2 - GASTROINTESTINAL HEMORRHAGE, UNSPECIFIED Qualifiers: GI bleed type/associated pathology: unspecified gastrointestinal hemorrhage type Qualified Code(s): K92.2 - Gastrointestinal hemorrhage, unspecified Assessment/Plan Echo 09/03/2019 Post-op septal motion, normal LVEF 50-55%, mod cLVH, normal RV size and fxn, mild LAE, mild MR, TR, bioAVR, mild AR, restrictive physiology Echocardiography October 12, 2018 revealed mild degree of concentric left ventricular hypertrophy with normal left ventricular systolic function and estimated LVEF between 65-70%, mild left atrial dilatation, normal right ventricular size and systolic function, aortic valve bioprosthesis with no aortic valve insufficiency, moderately dilated ascending aorta, mild thickening of the mitral valve leaflets with mild mitral valve regurgitation, mild to moderate tricuspid valve regurgitation with calculated RVSP of [address]: Small-moderate right and very small left effusion, pulm edema TAA 3.9 cm 1. Altered mental status metabolic encephalopathy improving 2. Acute hypoxic respiratory failure related to bronchopneumonia with probable sepsis syndrome, negative Covid 3. Acute on chronic class II-III NYHA classification LV diastolic heart failure improving 4. CAD post CABG angina pectoris 5. Aortic valve stenosis post SAVR/bio-prosthesis with LA appendage ligation 6. Recurrent paroxysmal atrial flutter with rapid ventricular response [id number] score of 5 on DOAC's/Eliquis 7. HTN 8. Hypercholesterolemia 9. Bacteremia - endocarditis unlikely 10. GERD and hiatal hernia, h/o rectal bleed post polypectomy 11: AFL PLAN: 1. Bilat pnumonitis management with abx, oral steroid taper and FIO2 as needed 2. Continue Toprol XL 75 bid and dose titration hemodynamics permitting 3. Continue Cardizem CD 120 qd and dose titration hemodynamics permitting 4. Continue Atorvastatin 40 qd 5. Continue Eliquis 5 bid 6. Cont oral diuretics (Lasix 20 qd) with monitoring of diuretic response, renal function and electrolytes
--- NOTE | 2019-09-11 10:58 | PN ---
Progress Note (short form) - Note Progress Note: PULMONARY APPEARS STABLE SPEAKING ON PHONE OFFERS NO COMPLAINTS VSS/AFEBRILE Constitutional: Yes: Less tachypneic at rest, awake and alert Eyes: Yes: WNL HENT: Yes: WNL Neck: Yes: WNL Cardiovascular: Yes: Regular Rate and Rhythm, S1, S2 Respiratory: Yes: HFOT, bilateral rhonchi and Rales Gastrointestinal: Yes: Normal Bowel Sounds, Soft Extremities: Yes: WNL Edema: No Labs: NOTED/IMAGES/NOTES REVIEWED Problem List - Problems (1) Acute on chronic diastolic (congestive) heart failure Code(s): I50.33 - ACUTE ON CHRONIC DIASTOLIC (CONGESTIVE) HEART FAILURE (2) Acute respiratory failure with hypoxia Code(s): J96.01 - ACUTE RESPIRATORY FAILURE WITH HYPOXIA (3) Suspected 2019 novel coronavirus infection Code(s): Z20.828 - CONTACT W AND EXPOSURE TO OTH VIRAL COMMUNICABLE DISEASES (4) Aortic valve stenosis Code(s): I35.0 - NONRHEUMATIC AORTIC (VALVE) STENOSIS (5) Atrial fibrillation Code(s): I48.91 - UNSPECIFIED ATRIAL FIBRILLATION (6) CAD (coronary artery disease) Code(s): I25.10 - ATHSCL HEART DISEASE OF [place] CORONARY ARTERY W/O ANG PCTRS (7) HTN (hypertension) Code(s): I10 - ESSENTIAL (PRIMARY) HYPERTENSION Qualifiers: Acute Hypoxic Respiratory Failure CAD s/p CABG LV Diastolic Dysfunction Paroxysmal Atrial Fibrillation Aortic Stenosis s/p AVR HTN Hypercholesterolemia - NC O2 as tolerated - ABX per ID - Prednisone - rate control - anticoagulation - pulse oximetry monitoring Jermain PRADO MD
--- NOTE | 2019-09-11 12:12 | PN ---
Progress Note (short form) - Note Progress Note: doing well no complaints states he is ambulating, ready to go home! Vital Signs Period Temp Pulse Resp BP Sys/Amador Pulse Ox Last 24 Hr 97.7 F-98.6 F 76-90 18-20 107-118/62-70 95-98 cor-rrr lungs decreased bs at bases abd soft,nt ext no edema CBC, BMP 09/10/19 05:40 09/10/19 05:40 Microbiology 09/02/19 17:30 Blood - Peripheral Venous Blood Culture - Final NO GROWTH AFTER 5 DAYS INCUBATION 09/02/19 18:00 Blood - Peripheral Venous Blood Culture - Final NO GROWTH AFTER 5 DAYS INCUBATION 09/01/19 10:28 Blood - Peripheral Venous Blood Culture - Final NO GROWTH AFTER 5 DAYS INCUBATION 09/01/19 10:28 Blood - Peripheral Venous Blood Culture - Final Staph Hominis Sub Sp Hominis 09/02/19 17:15 Urine For Antigen Detection Legionella Antigen - Final 09/02/19 17:15 Urine For Antigen Detection Streptococcus pneumoniae Antigen (M - Final a/p has completed 10 days ceftriaxone- will d/c oxygen titration per pulmonary CHF- per cardiology overall continues to improve
--- NOTE | 2019-09-11 13:04 | PN ---
Progress Note (short form) - Note Progress Note: calm no distress confused lying down in bed-- on nasal canula 3liters- saturation 95% gait is slightly unsteady per PT notes Vital Signs - 24 hr 09/10/19 09/10/19 09/10/19 15:21 18:00 21:00 Temperature 97.7 F Pulse Rate 79 Respiratory 18 Rate Blood Pressure 115/66 O2 Sat by Pulse 95 97 98 Oximetry (%) 09/10/19 09/11/19 09/11/19 22:00 02:00 06:00 Temperature 98.0 F 97.7 F 98.6 F Pulse Rate 76 82 80 Respiratory 18 18 18 Rate Blood Pressure 107/62 114/69 116/69 O2 Sat by Pulse 98 97 97 Oximetry (%) 09/11/19 09/11/19 09:00 10:00 Temperature 97.9 F Pulse Rate 90 Respiratory 20 20 Rate Blood Pressure 118/70 O2 Sat by Pulse 95 95 Oximetry (%) Current Medications Generic Name Dose Route Start Last Admin Trade Name Freq PRN Reason Stop Dose Admin Acetaminophen 650 mg 09/01/19 18:17 Tylenol - PO Q4H PRN FEVER Albuterol Sulfate 2 puff 09/01/19 13:31 Ventolin Hfa Inhaler - IH Q4H PRN SHORT OF BREATH/WHEEZING Apixaban 5 mg 09/01/19 22:00 09/11/19 10:05 Eliquis - PO 5 mg BID MAGI Administration Ascorbic Acid 500 mg 09/01/19 13:45 09/11/19 10:06 Vitamin C - PO 500 mg DAILY [facility] Administration Atorvastatin Calcium 40 mg 09/01/19 22:00 09/10/19 22:01 Lipitor - PO 40 mg HS [facility]I Administration Diltiazem HCl 120 mg 09/02/19 11:30 09/11/19 10:05 Cardizem Cd - PO 120 mg DAILY [facility] Administration Furosemide 20 mg 09/09/19 10:00 09/11/19 10:05 Lasix - PO 20 mg DAILY [facility] Administration Haloperidol 5 mg 09/07/19 12:49 09/07/19 21:35 Haldol Injection (Fast Acting) - IM 5 mg Q6H PRN Administration AGITATION Ceftriaxone Sodium 1 gm/ 50 mls @ 100 mls/hr 09/02/19 12:45 09/11/19 10:04 Dextrose IVPB 100 mls/hr DAILY [facility] Administration Metoprolol Succinate 50 mg/ 75 mg 09/08/19 10:00 09/11/19 10:06 Metoprolol Succinate 25 mg PO 75 mg BID [facility] Administration Mirtazapine 7.5 mg 09/09/19 13:00 09/11/19 10:05 Remeron - PO 7.5 mg DAILY [facility] Administration Pantoprazole Sodium 40 mg 09/08/19 10:00 09/11/19 10:06 Protonix - PO 40 mg DAILY [facility] Administration Prednisone 10 mg 09/11/19 12:59 Deltasone - PO DAILY [facility] Zinc Sulfate 220 mg 09/01/19 13:45 09/11/19 10:05 Orazinc - PO 220 mg BID [facility] Administration Microbiology 09/02/19 17:30 Blood - Peripheral Venous Blood Culture - Final NO GROWTH AFTER 5 DAYS INCUBATION 09/02/19 18:00 Blood - Peripheral Venous Blood Culture - Final NO GROWTH AFTER 5 DAYS INCUBATION 09/01/19 10:28 Blood - Peripheral Venous Blood Culture - Final NO GROWTH AFTER 5 DAYS INCUBATION 09/01/19 10:28 Blood - Peripheral Venous Blood Culture - Final Staph Hominis Sub Sp Hominis 09/02/19 17:15 Urine For Antigen Detection Legionella Antigen - Final 09/02/19 17:15 Urine For Antigen Detection Streptococcus pneumoniae Antigen (M - Final S1S2 RRR lungs decreased Abd--Soft, NT, BS+ Ext-- no edema A/P continue prednisone taper continue with lasix po on iv antibiotics for 10 days now , he is afebrile , blood cultures negative-- consider discontinuing not on restraints now-- he is calm inflammatory markers- monitor-->decreasing weaning down O2 PT eval wants him in [facility] for pulmonary rehab , she is unable to care for him at home social psychologist on the case Problem List - Problems (1) Acute respiratory failure with hypoxia Code(s): J96.01 - ACUTE RESPIRATORY FAILURE WITH HYPOXIA (2) Suspected 2019 novel coronavirus infection Code(s): Z20.828 - CONTACT W AND EXPOSURE TO [facility] VIRAL COMMUNICABLE DISEASES (3) Aortic valve stenosis Code(s): I35.0 - NONRHEUMATIC AORTIC (VALVE) STENOSIS (4) Atrial fibrillation Code(s): I48.91 - UNSPECIFIED ATRIAL FIBRILLATION (5) CAD (coronary artery disease) Code(s): I25.10 - ATHSCL HEART DISEASE OF [place] CORONARY ARTERY W/O ANG PCTRS (6) HTN (hypertension) Code(s): I10 - ESSENTIAL (PRIMARY) HYPERTENSION Qualifiers:
[2019-09-11] MEDS: ATORVASTATIN CA 40 MG TABLET (FP) PO SCH (22:00)
[2019-09-12] MEDS ORDERED: metoPROLOL SUCCINATE 25 MG TAB.SR.24H (FP) ONE ×2 (09:51→21:26)
[2019-09-12] MEDS: METOPROLOL SUCCINATE 50 MG, METOPROLOL SUCCINATE 25 MG PO SCH ×2 (10:08→21:37)
[2019-09-12] MEDS: ZINC SULFATE 220 MG CAPSULE (FP) PO SCH ×2 (10:09→21:37)
[2019-09-12] MEDS: APIXABAN 5 MG TABLET PO SCH ×2 (10:09→21:37)
[2019-09-12] MEDS: MIRTAZAPINE 15 MG TABLET (FP) PO SCH (10:09)
[2019-09-12] MEDS: FUROSEMIDE 20 MG TABLET (FP) PO SCH (10:09)
[2019-09-12] MEDS: predniSONE 10 MG TABLET (UD) PO SCH (10:09)
[2019-09-12] MEDS: PANTOPRAZOLE 40 MG TABLET PO SCH (10:09)
[2019-09-12] MEDS: ASCORBIC ACID 500 MG TABLET (FP) PO SCH (10:10)
--- NOTE | 2019-09-12 10:48 | PN ---
Progress Note, Physician History of Present Illness: Mental status improved and conversant on NC, rate-controlled aflutter. - Current Medication List Current Medications: Active Medications Acetaminophen (Tylenol -) 650 mg PO Q4H PRN PRN Reason: FEVER Albuterol Sulfate (Ventolin Hfa Inhaler -) 2 puff IH Q4H PRN PRN Reason: SHORT OF BREATH/WHEEZING Apixaban (Eliquis -) 5 mg PO BID [facility] Last Admin: 09/12/19 10:09 Dose: 5 mg Documented by: Ascorbic Acid (Vitamin C -) 500 mg PO DAILY [facility] Last Admin: 09/12/19 10:10 Dose: 500 mg Documented by: Atorvastatin Calcium (Lipitor -) 40 mg PO HS [facility] Last Admin: 09/11/19 22:00 Dose: 40 mg Documented by: Diltiazem HCl (Cardizem Cd -) 120 mg PO DAILY [facility] Last Admin: 09/12/19 10:09 Dose: 120 mg Documented by: Furosemide (Lasix -) 20 mg PO DAILY [facility] Last Admin: 09/12/19 10:09 Dose: 20 mg Documented by: Haloperidol (Haldol Injection (Fast Acting) -) 5 mg IM Q6H PRN PRN Reason: AGITATION Last Admin: 09/07/19 21:35 Dose: 5 mg Documented by: Metoprolol Succinate 50 mg/ (Metoprolol Succinate 25 mg) 75 mg PO BID [facility] Last Admin: 09/12/19 10:08 Dose: 75 mg Documented by: Mirtazapine (Remeron -) 7.5 mg PO DAILY [facility] Last Admin: 09/12/19 10:09 Dose: 7.5 mg Documented by: Pantoprazole Sodium (Protonix -) 40 mg PO DAILY [facility] Last Admin: 09/12/19 10:09 Dose: 40 mg Documented by: Prednisone (Deltasone -) 10 mg PO DAILY [facility] Last Admin: 09/12/19 10:09 Dose: 10 mg Documented by: Zinc Sulfate (Orazinc -) 220 mg PO BID [facility] Last Admin: 09/12/19 10:09 Dose: 220 mg Documented by: - Objective Vital Signs: Vital Signs Temperature 98.0 F 09/12/19 06:00 Pulse Rate 80 09/12/19 06:00 Respiratory Rate 18 09/12/19 06:00 Blood Pressure 118/68 09/12/19 06:00 O2 Sat by Pulse Oximetry (%) 97 09/12/19 06:00 Constitutional: Yes: No Distress, Calm Neck: Yes: Supple Cardiovascular: Yes: Pulse Irregular Respiratory: Yes: On Nasal O2 Gastrointestinal: Yes: Normal Bowel Sounds, Soft Edema: No Labs: CBC, BMP 09/10/19 05:40 09/10/19 05:40 INR, PTT INR 2.95 (0.83-1.09) H 09/01/19 10:38 - ....Imaging EKG: Report Reviewed (Tele: Rate-controlled aflutter with variable conduction) Problem List - Problems (1) Acute respiratory failure with hypoxia Code(s): J96.01 - ACUTE RESPIRATORY FAILURE WITH HYPOXIA (2) Suspected 2019 novel coronavirus infection Code(s): Z20.828 - CONTACT W AND EXPOSURE TO OTH VIRAL COMMUNICABLE DISEASES (3) Acute on chronic diastolic (congestive) heart failure Code(s): I50.33 - ACUTE ON CHRONIC DIASTOLIC (CONGESTIVE) HEART FAILURE Assessment/Plan Assessment/Plan - Problems (1) CAD (coronary artery disease) Code(s): I25.10 - ATHSCL HEART DISEASE OF [place] CORONARY ARTERY W/O ANG PCTRS (2) Hx of CABG Code(s): Z95.1 - PRESENCE OF AORTOCORONARY BYPASS GRAFT (3) S/P AVR (aortic valve replacement) Code(s): Z95.2 - PRESENCE OF PROSTHETIC HEART VALVE (4) S/P left atrial appendage ligation Code(s): Z98.890 - OTHER SPECIFIED POSTPROCEDURAL STATES (5) Aortic valve stenosis Code(s): I35.0 - NONRHEUMATIC AORTIC (VALVE) STENOSIS (6) Atrial fibrillation Code(s): I48.91 - UNSPECIFIED ATRIAL FIBRILLATION (7) HTN (hypertension) Code(s): I10 - ESSENTIAL (PRIMARY) HYPERTENSION Qualifiers: Hypertension type: essential hypertension Qualified Code(s): I10 - Essential (primary) hypertension (8) Hypercholesterolemia Code(s): E78.00 - PURE HYPERCHOLESTEROLEMIA, UNSPECIFIED (9) GERD (gastroesophageal reflux disease) Code(s): K21.9 - GASTRO-ESOPHAGEAL REFLUX DISEASE WITHOUT ESOPHAGITIS (10) Hiatal hernia Code(s): K44.9 - DIAPHRAGMATIC HERNIA WITHOUT OBSTRUCTION OR GANGRENE (11) GI bleed Code(s): K92.2 - GASTROINTESTINAL HEMORRHAGE, UNSPECIFIED Qualifiers: GI bleed type/associated pathology: unspecified gastrointestinal hemorrhage type Qualified Code(s): K92.2 - Gastrointestinal hemorrhage, unspecified Assessment/Plan Echo 09/03/2019 Post-op septal motion, normal LVEF 50-55%, mod cLVH, normal RV size and fxn, mild LAE, mild MR, TR, bioAVR, mild AR, restrictive physiology Echocardiography October 12, 2018 revealed mild degree of concentric left ventricular hypertrophy with normal left ventricular systolic function and estimated LVEF between 65-70%, mild left atrial dilatation, normal right ventricular size and systolic function, aortic valve bioprosthesis with no aortic valve insufficiency, moderately dilated ascending aorta, mild thickening of the mitral valve leaflets with mild mitral valve regurgitation, mild to moderate tricuspid valve regurgitation with calculated RVSP of [address]: Small-moderate right and very small left effusion, pulm edema TAA 3.9 cm 1. Altered mental status metabolic encephalopathy resolved 2. Acute hypoxic respiratory failure related to bronchopneumonia with probable sepsis syndrome, negative Covid 3. Acute on chronic class II-III NYHA classification LV diastolic heart failure improving 4. CAD post CABG angina pectoris 5. Aortic valve stenosis post SAVR/bio-prosthesis with LA appendage ligation 6. Recurrent paroxysmal atrial flutter with improved rate-control [id number] score of 5 on DOAC's/Eliquis 7. HTN 8. Hypercholesterolemia 9. Bacteremia - endocarditis unlikely 10. GERD and hiatal hernia, h/o rectal bleed post polypectomy 11: AFL PLAN: 1. Bilat pnumonitis management with completed abx course, oral steroid taper, BD and FIO2 as needed 2. Continue Toprol XL 75 bid and dose titration hemodynamics permitting 3. Continue Cardizem CD 120 qd and dose titration hemodynamics permitting 4. Continue Atorvastatin 40 qd 5. Continue Eliquis 5 bid 6. Cont oral diuretics (Lasix 20 qd) with monitoring of diuretic response, renal function and electrolytes
--- NOTE | 2019-09-12 12:17 | PN ---
Progress Note (short form) - Note Progress Note: doing well feels good Vital Signs Period Temp Pulse Resp BP Sys/Amador Pulse Ox Last 24 Hr 97.8 F-98.1 F 79-91 16-20 103-127/60-73 94-97 cor-rrr lungs decreased bs at bases abd soft,nt ext no edema CBC, BMP 09/10/19 05:40 09/10/19 05:40 Microbiology 09/02/19 17:30 Blood - Peripheral Venous Blood Culture - Final NO GROWTH AFTER 5 DAYS INCUBATION 09/02/19 18:00 Blood - Peripheral Venous Blood Culture - Final NO GROWTH AFTER 5 DAYS INCUBATION 09/01/19 10:28 Blood - Peripheral Venous Blood Culture - Final NO GROWTH AFTER 5 DAYS INCUBATION 09/01/19 10:28 Blood - Peripheral Venous Blood Culture - Final Staph Hominis Sub Sp Hominis 09/02/19 17:15 Urine For Antigen Detection Legionella Antigen - Final 09/02/19 17:15 Urine For Antigen Detection Streptococcus pneumoniae Antigen (M - Final a/p stable off ceftriaxone, suspect leukocytosis is due to steroids oxygen titration per pulmonary CHF- per cardiology overall continues to improve
--- NOTE | 2019-09-12 12:23 | PN ---
Progress Note (short form) - Note Progress Note: PULMONARY APPEARS STABLE SPEAKING ON PHONE OFFERS NO COMPLAINTS VSS/AFEBRILE Constitutional: Yes: Less tachypneic at rest, awake and alert Eyes: Yes: WNL HENT: Yes: WNL Neck: Yes: WNL Cardiovascular: Yes: Regular Rate and Rhythm, S1, S2 Respiratory: Yes: HFOT, bilateral rhonchi and Rales Gastrointestinal: Yes: Normal Bowel Sounds, Soft Extremities: Yes: WNL Edema: No Labs: NOTED/IMAGES/NOTES REVIEWED Problem List - Problems (1) Acute on chronic diastolic (congestive) heart failure Code(s): I50.33 - ACUTE ON CHRONIC DIASTOLIC (CONGESTIVE) HEART FAILURE (2) Acute respiratory failure with hypoxia Code(s): J96.01 - ACUTE RESPIRATORY FAILURE WITH HYPOXIA (3) Suspected 2019 novel coronavirus infection Code(s): Z20.828 - CONTACT W AND EXPOSURE TO OTH VIRAL COMMUNICABLE DISEASES (4) Aortic valve stenosis Code(s): I35.0 - NONRHEUMATIC AORTIC (VALVE) STENOSIS (5) Atrial fibrillation Code(s): I48.91 - UNSPECIFIED ATRIAL FIBRILLATION (6) CAD (coronary artery disease) Code(s): I25.10 - ATHSCL HEART DISEASE OF [place] CORONARY ARTERY W/O ANG PCTRS (7) HTN (hypertension) Code(s): I10 - ESSENTIAL (PRIMARY) HYPERTENSION Qualifiers: Acute Hypoxic Respiratory Failure CAD s/p CABG LV Diastolic Dysfunction Paroxysmal Atrial Fibrillation Aortic Stenosis s/p AVR HTN Hypercholesterolemia - NC O2 as tolerated - ABX per ID - Prednisone - rate control - anticoagulation - pulse oximetry monitoring Jermain PRADO MD
--- NOTE | 2019-09-12 12:48 | PN ---
Progress Note (short form) - Note Progress Note: calm no distress confused lying down in bed-- on nasal canula 3liters- saturation 95% gait is slightly unsteady per PT notes feels well spoke to son yesterday Vital Signs - 24 hr 09/11/19 09/11/19 09/11/19 18:00 21:00 22:00 Temperature 97.8 F 97.9 F Pulse Rate 89 83 Respiratory 20 16 Rate Blood Pressure 122/70 114/63 O2 Sat by Pulse 95 97 97 Oximetry (%) 09/12/19 09/12/19 09/12/19 00:15 02:00 04:30 Temperature 98.1 F Pulse Rate 80 82 Respiratory 18 Rate Blood Pressure 103/60 O2 Sat by Pulse 96 95 94 L Oximetry (%) 09/12/19 09/12/19 09/12/19 06:00 09:00 10:00 Temperature 98.0 F 98.0 F Pulse Rate 80 79 Respiratory 18 18 18 Rate Blood Pressure 118/68 111/73 O2 Sat by Pulse 97 97 97 Oximetry (%) 09/12/19 14:00 Temperature 97.2 F L Pulse Rate 81 Respiratory 20 Rate Blood Pressure 101/81 O2 Sat by Pulse Oximetry (%) Current Medications Generic Name Dose Route Start Last Admin Trade Name Freq PRN Reason Stop Dose Admin Acetaminophen 650 mg 09/01/19 18:17 Tylenol - PO Q4H PRN FEVER Albuterol Sulfate 2 puff 09/01/19 13:31 Ventolin Hfa Inhaler - IH Q4H PRN SHORT OF BREATH/WHEEZING Apixaban 5 mg 09/01/19 22:00 09/12/19 10:09 Eliquis - PO 5 mg BID MAGI Administration Ascorbic Acid 500 mg 09/01/19 13:45 09/12/19 10:10 Vitamin C - PO 500 mg DAILY MAGI Administration Atorvastatin Calcium 40 mg 09/01/19 22:00 09/11/19 22:00 Lipitor - PO 40 mg HS MAGI Administration Diltiazem HCl 120 mg 09/02/19 11:30 09/12/19 10:09 Cardizem Cd - PO 120 mg DAILY MAGI Administration Furosemide 20 mg 09/09/19 10:00 09/12/19 10:09 Lasix - PO 20 mg DAILY MAGI Administration Haloperidol 5 mg 09/07/19 12:49 09/07/19 21:35 Haldol Injection (Fast Acting) - IM 5 mg Q6H PRN Administration AGITATION Metoprolol Succinate 50 mg/ 75 mg 09/08/19 10:00 09/12/19 10:08 Metoprolol Succinate 25 mg PO 75 mg BID MAGI Administration Mirtazapine 7.5 mg 09/09/19 13:00 09/12/19 10:09 Remeron - PO 7.5 mg DAILY MAGI Administration Pantoprazole Sodium 40 mg 09/08/19 10:00 09/12/19 10:09 Protonix - PO 40 mg DAILY MAGI Administration Prednisone 10 mg 09/12/19 10:00 09/12/19 10:09 Deltasone - PO 10 mg DAILY MAGI Administration Zinc Sulfate 220 mg 09/01/19 13:45 09/12/19 10:09 Orazinc - PO 220 mg BID MAGI Administration Microbiology 09/02/19 17:30 Blood - Peripheral Venous Blood Culture - Final NO GROWTH AFTER 5 DAYS INCUBATION 09/02/19 18:00 Blood - Peripheral Venous Blood Culture - Final NO GROWTH AFTER 5 DAYS INCUBATION 09/01/19 10:28 Blood - Peripheral Venous Blood Culture - Final NO GROWTH AFTER 5 DAYS INCUBATION 09/01/19 10:28 Blood - Peripheral Venous Blood Culture - Final Staph Hominis Sub Sp Hominis 09/02/19 17:15 Urine For Antigen Detection Legionella Antigen - Final 09/02/19 17:15 Urine For Antigen Detection Streptococcus pneumoniae Antigen (M - Final S1S2 RRR lungs decreased Abd--Soft, NT, BS+ Ext-- no edema A/P continue prednisone taper continue with lasix po not on restraints now-- he is calm inflammatory markers- monitor-->decreasing weaning down O2 PT eval wants him in [facility]-- [facility] for pulmonary rehab , she is unable to care for him at home certified social workers in health care on the case dc planning to [place] Problem List - Problems (1) Acute respiratory failure with hypoxia Code(s): J96.01 - ACUTE RESPIRATORY FAILURE WITH HYPOXIA (2) Suspected 2019 novel coronavirus infection Code(s): Z20.828 - CONTACT W AND EXPOSURE TO OT VIRAL COMMUNICABLE DISEASES (3) Aortic valve stenosis Code(s): I35.0 - NONRHEUMATIC AORTIC (VALVE) STENOSIS (4) Atrial fibrillation Code(s): I48.91 - UNSPECIFIED ATRIAL FIBRILLATION (5) CAD (coronary artery disease) Code(s): I25.10 - ATHSCL HEART DISEASE OF [place] CORONARY ARTERY W/O ANG PCTRS (6) HTN (hypertension) Code(s): I10 - ESSENTIAL (PRIMARY) HYPERTENSION Qualifiers:
[2019-09-12] MEDS: ATORVASTATIN CA 40 MG TABLET (FP) PO SCH (21:37)
[2019-09-13 08:56] VITALS: BP 120/71; PULSE 88; TEMP 98.7
[2019-09-13] MEDS ORDERED: metoPROLOL SUCCINATE 25 MG TAB.SR.24H (FP) ONE (09:47)
[2019-09-13] MEDS ORDERED: PT OWN MED DRAWER 7, Y5N ONE (09:49)
[2019-09-13] MEDS: MIRTAZAPINE 15 MG TABLET (FP) PO SCH (10:05)
[2019-09-13] MEDS: METOPROLOL SUCCINATE 50 MG, METOPROLOL SUCCINATE 25 MG PO SCH (10:07)
[2019-09-13] MEDS: ZINC SULFATE 220 MG CAPSULE (FP) PO SCH (10:07)
[2019-09-13] MEDS: APIXABAN 5 MG TABLET PO SCH (10:07)
[2019-09-13] MEDS: ASCORBIC ACID 500 MG TABLET (FP) PO SCH (10:08)
[2019-09-13] MEDS: FUROSEMIDE 20 MG TABLET (FP) PO SCH (10:08)
[2019-09-13] MEDS: PANTOPRAZOLE 40 MG TABLET PO SCH (10:08)
[2019-09-13] MEDS: predniSONE 10 MG TABLET (UD) PO SCH (10:08)
--- NOTE | 2019-09-13 10:55 | PN ---
Progress Note, Physician History of Present Illness: Mental status improved and conversant on NC, rate-controlled aflutter, ambulated earlier w/o BLOCK. - Current Medication List Current Medications: Active Medications Acetaminophen (Tylenol -) 650 mg PO Q4H PRN PRN Reason: FEVER Albuterol Sulfate (Ventolin Hfa Inhaler -) 2 puff IH Q4H PRN PRN Reason: SHORT OF BREATH/WHEEZING Apixaban (Eliquis -) 5 mg PO BID [facility] Last Admin: 09/13/19 10:07 Dose: 5 mg Documented by: Ascorbic Acid (Vitamin C -) 500 mg PO DAILY [facility] Last Admin: 09/13/19 10:08 Dose: 500 mg Documented by: Atorvastatin Calcium (Lipitor -) 40 mg PO HS [facility] Last Admin: 09/12/19 21:37 Dose: 40 mg Documented by: Diltiazem HCl (Cardizem Cd -) 120 mg PO DAILY [facility] Last Admin: 09/13/19 10:08 Dose: 120 mg Documented by: Furosemide (Lasix -) 20 mg PO DAILY [facility] Last Admin: 09/13/19 10:08 Dose: 20 mg Documented by: Haloperidol (Haldol Injection (Fast Acting) -) 5 mg IM Q6H PRN PRN Reason: AGITATION Last Admin: 09/07/19 21:35 Dose: 5 mg Documented by: Metoprolol Succinate 50 mg/ (Metoprolol Succinate 25 mg) 75 mg PO BID [facility] Last Admin: 09/13/19 10:07 Dose: 75 mg Documented by: Mirtazapine (Remeron -) 7.5 mg PO DAILY [facility] Last Admin: 09/13/19 10:05 Dose: 7.5 mg Documented by: Pantoprazole Sodium (Protonix -) 40 mg PO DAILY [facility] Last Admin: 09/13/19 10:08 Dose: 40 mg Documented by: Prednisone (Deltasone -) 10 mg PO DAILY [facility] Last Admin: 09/13/19 10:08 Dose: 10 mg Documented by: Zinc Sulfate (Orazinc -) 220 mg PO BID [facility] Last Admin: 09/13/19 10:07 Dose: 220 mg Documented by: - Objective Vital Signs: Vital Signs Temperature 98.7 F 09/13/19 08:55 Pulse Rate 88 09/13/19 08:55 Respiratory Rate 18 09/13/19 09:00 Blood Pressure 120/71 09/13/19 08:55 O2 Sat by Pulse Oximetry (%) 97 09/13/19 09:00 Constitutional: Yes: No Distress, Calm, Thin Neck: Yes: Supple Cardiovascular: Yes: Pulse Irregular Respiratory: Yes: Diminished, On Nasal O2 Gastrointestinal: Yes: Soft, Hypoactive Bowel Sounds Edema: No Labs: CBC, BMP 09/10/19 05:40 09/10/19 05:40 INR, PTT INR 2.95 (0.83-1.09) H 09/01/19 10:38 - ....Imaging EKG: Report Reviewed (Tele: Rate-controlled aflutter) Problem List - Problems (1) Acute respiratory failure with hypoxia Code(s): J96.01 - ACUTE RESPIRATORY FAILURE WITH HYPOXIA (2) Suspected 2019 novel coronavirus infection Code(s): Z20.828 - CONTACT W AND EXPOSURE TO OTH VIRAL COMMUNICABLE DISEASES (3) Acute on chronic diastolic (congestive) heart failure Code(s): I50.33 - ACUTE ON CHRONIC DIASTOLIC (CONGESTIVE) HEART FAILURE Assessment/Plan (1) CAD (coronary artery disease) Code(s): I25.10 - ATHSCL HEART DISEASE OF [place] CORONARY ARTERY W/O ANG PCTRS (2) Hx of CABG Code(s): Z95.1 - PRESENCE OF AORTOCORONARY BYPASS GRAFT (3) S/P AVR (aortic valve replacement) Code(s): Z95.2 - PRESENCE OF PROSTHETIC HEART VALVE (4) S/P left atrial appendage ligation Code(s): Z98.890 - OTHER SPECIFIED POSTPROCEDURAL STATES (5) Aortic valve stenosis Code(s): I35.0 - NONRHEUMATIC AORTIC (VALVE) STENOSIS (6) Atrial fibrillation Code(s): I48.91 - UNSPECIFIED ATRIAL FIBRILLATION (7) HTN (hypertension) Code(s): I10 - ESSENTIAL (PRIMARY) HYPERTENSION Qualifiers: Hypertension type: essential hypertension Qualified Code(s): I10 - Essential (primary) hypertension (8) Hypercholesterolemia Code(s): E78.00 - PURE HYPERCHOLESTEROLEMIA, UNSPECIFIED (9) GERD (gastroesophageal reflux disease) Code(s): K21.9 - GASTRO-ESOPHAGEAL REFLUX DISEASE WITHOUT ESOPHAGITIS (10) Hiatal hernia Code(s): K44.9 - DIAPHRAGMATIC HERNIA WITHOUT OBSTRUCTION OR GANGRENE (11) GI bleed Code(s): K92.2 - GASTROINTESTINAL HEMORRHAGE, UNSPECIFIED Qualifiers: GI bleed type/associated pathology: unspecified gastrointestinal hemorrhage type Qualified Code(s): K92.2 - Gastrointestinal hemorrhage, unspecified Assessment/Plan Echo 09/03/2019 Post-op septal motion, normal LVEF 50-55%, mod cLVH, normal RV size and fxn, mild LAE, mild MR, TR, bioAVR, mild AR, restrictive physiology Echocardiography October 12, 2018 revealed mild degree of concentric left ventricular hypertrophy with normal left ventricular systolic function and est imated LVEF between 65-70%, mild left atrial dilatation, normal right ventricular size and systolic function, aortic valve bioprosthesis with no aortic valve insufficiency, moderately dilated ascending aorta, mild thickening of the mitral valve leaflets with mild mitral valve regurgitation, mild to moderate tricuspid valve regurgitation with calculated RVSP of [address]: Small-moderate right and very small left effusion, pulm edema TAA 3.9 cm 1. Altered mental status metabolic encephalopathy resolved 2. Acute hypoxic respiratory failure related to bronchopneumonia with probable sepsis syndrome, negative Covid 3. Acute on chronic class II-III NYHA classification LV diastolic heart failure improving 4. CAD post CABG angina pectoris 5. Aortic valve stenosis post SAVR/bio-prosthesis with LA appendage ligation 6. Recurrent paroxysmal atrial flutter with improved rate-control [id number] score of 5 on DOAC's/Eliquis 7. HTN 8. Hypercholesterolemia 9. Bacteremia - endocarditis unlikely 10. GERD and hiatal hernia, h/o rectal bleed post polypectomy 11: AFL PLAN: 1. Bilat pnumonitis management with completed abx course, oral steroid taper, BD and FIO2 as needed 2. Continue Toprol XL 75 bid and dose titration hemodynamics permitting 3. Continue Cardizem CD 120 qd and dose titration hemodynamics permitting 4. Continue Atorvastatin 40 qd 5. Continue Eliquis 5 bid 6. Cont oral diuretics (Lasix 20 qd) with monitoring of diuretic response, renal function and electrolytes 7. D/c planning to SNF
--- NOTE | 2019-09-13 11:38 | DS ---
Physical Examination Vital Signs: Vital Signs Temperature 98.7 F 09/13/19 08:55 Pulse Rate 88 09/13/19 08:55 Respiratory Rate 18 09/13/19 09:00 Blood Pressure 120/71 09/13/19 08:55 O2 Sat by Pulse Oximetry (%) 97 09/13/19 09:00 Findings/Remarks: Pt sen/ examined chart is reviewed Awake/ comfortable mood calm walking with PT Saturating well on 3L Afebrile off abx covid -ve x 2 Constitutional: Yes: No Distress, Calm Eyes: Yes: Conjunctiva Clear Neck: Yes: Supple Cardiovascular: Yes: Regular Rate and Rhythm Respiratory: Yes: Diminished Gastrointestinal: Yes: Soft Neurological: Yes: Alert Psychiatric: Yes: Alert Labs: CBC, BMP 09/10/19 05:40 09/10/19 05:40 Discharge Summary Problems reviewed: Yes Reason For Visit: SUSPECTED 2019 NOVEL CORONAVIRUS INFECTION Current Active Problems Acute on chronic diastolic (congestive) heart failure (Acute) Acute respiratory failure with hypoxia (Acute) Aortic aneurysm (Acute) Aortic aneurysm (Acute) Neurologic gait dysfunction (Acute) Suspected 2019 novel coronavirus infection (Acute) Weakness (Acute) Hospital Course: Pt with Extensive history admitted with Bilateral Pneumonitis Treated with Abx got better covid -ve contaminant blood culture markers better overall better Stable for d/c to Rehab d/w Rn also meds reviewed Taper steroids as tolerated Condition: Improved - Instructions Referrals: Nuvia Harley MD [Primary Care Provider] - Disposition: NURSING HOME FACILITY - Home Medications Comprehensive Discharge Medication List: Ambulatory Orders Atorvastatin Ca [Lipitor] 40 mg PO HS 10/17/17 Furosemide [Lasix -] 20 mg PO ASDIR 10/17/17 Apixaban [Eliquis -] 5 mg PO BID #60 tablet 07/08/18 Diltiazem Cd [Cardizem Cd -] 120 mg PO DAILY #30 cap.cd.24h 09/12/19 Metoprolol Succinate [Toprol XL -] 75 mg PO BID #60 tab.sr.24h 09/12/19 Mirtazapine [Remeron -] 7.5 mg PO DAILY #30 tablet 09/12/19 predniSONE [Deltasone -] 10 mg PO DAILY #3 tablet 09/12/19 Acetaminophen [Tylenol .Regular Strength -] 650 mg PO Q4H PRN tablet 09/13/19 Albuterol Sulfate Inhaler - [Ventolin HFA Inhaler -] 2 puff IH Q4H PRN inhaler 09/13/19 Haloperidol Injection [Haldol Injection (Fast Acting) -] 5 mg IM Q6H PRN ml 09/13/19 Pantoprazole Sodium [Protonix -] 40 mg PO DAILY tablet.ec 09/13/19 Zinc Sulfate [Orazinc -] 220 mg PO BID capsule 09/13/19
--- NOTE | 2019-09-13 12:40 | PN ---
Progress Note (short form) - Note Progress Note: PULMONARY Breathing continues to improve. No fevers, chills. Vital Signs Period Temp Pulse Resp BP Sys/Amador Pulse Ox Last 24 Hr 97.2 F-98.7 F 65-89 16-20 91-121/40-81 95-98 Gen: NAD in chair Heart: RRR Lung: decreased breath sounds at the bases Abd: soft, nontender Ext: no edema CBC, BMP 09/10/19 05:40 09/10/19 05:40 Active Medications Acetaminophen (Tylenol -) 650 mg PO Q4H PRN PRN Reason: FEVER Albuterol Sulfate (Ventolin Hfa Inhaler -) 2 puff IH Q4H PRN PRN Reason: SHORT OF BREATH/WHEEZING Apixaban (Eliquis -) 5 mg PO BID [facility] Last Admin: 09/13/19 10:07 Dose: 5 mg Documented by: Ascorbic Acid (Vitamin C -) 500 mg PO DAILY [facility] Last Admin: 09/13/19 10:08 Dose: 500 mg Documented by: Atorvastatin Calcium (Lipitor -) 40 mg PO [facility] Last Admin: 09/12/19 21:37 Dose: 40 mg Documented by: Diltiazem HCl (Cardizem Cd -) 120 mg PO DAILY [facility] Last Admin: 09/13/19 10:08 Dose: 120 mg Documented by: Furosemide (Lasix -) 20 mg PO DAILY [facility] Last Admin: 09/13/19 10:08 Dose: 20 mg Documented by: Haloperidol (Haldol Injection (Fast Acting) -) 5 mg IM Q6H PRN PRN Reason: AGITATION Last Admin: 09/07/19 21:35 Dose: 5 mg Documented by: Metoprolol Succinate 50 mg/ (Metoprolol Succinate 25 mg) 75 mg PO BID [facility] Last Admin: 09/13/19 10:07 Dose: 75 mg Documented by: Mirtazapine (Remeron -) 7.5 mg PO DAILY [facility] Last Admin: 09/13/19 10:05 Dose: 7.5 mg Documented by: Pantoprazole Sodium (Protonix -) 40 mg PO DAILY [facility] Last Admin: 09/13/19 10:08 Dose: 40 mg Documented by: Prednisone (Deltasone -) 10 mg PO DAILY [facility] Last Admin: 09/13/19 10:08 Dose: 10 mg Documented by: Zinc Sulfate (Orazinc -) 220 mg PO BID [facility] Last Admin: 09/13/19 10:07 Dose: 220 mg Documented by: A/P Acute Hypoxic Respiratory Failure CAD s/p CABG LV Diastolic Dysfunction Paroxysmal Atrial Fibrillation Aortic Stenosis s/p AVR HTN Hypercholesterolemia - O2 to keep SpO2 >90% - completed antibiotics - taper off rednisone - rate control - anticoagulation
== END 2019-09-13 15:30 | DRG 871 ==
LOC: SUPCPDRO 10:15 → JER 10:15 → JERBED 12:51 → J4S 22:44
PROVIDERS: ADMIT Internal Medicine; ATTEND Internal Medicine
DX: A41.89 Other specified sepsis (principal); J96.01 Acute respiratory failure with hypoxia; I50.33 Acute on chronic diastolic (congestive) heart failure; G93.41 Metabolic encephalopathy; U07.1 COVID-19; J18.9 Pneumonia, unspecified organism; I48.92 Unspecified atrial flutter; K92.2 Gastrointestinal hemorrhage, unspecified; E87.2 Acidosis; I25.119 Atherosclerotic heart disease of native coronary artery with unspecified angina pectoris; I48.0 Paroxysmal atrial fibrillation; E78.00 Pure hypercholesterolemia, unspecified; K21.9 Gastro-esophageal reflux disease without esophagitis; K44.9 Diaphragmatic hernia without obstruction or gangrene; I35.0 Nonrheumatic aortic (valve) stenosis; R41.0 Disorientation, unspecified; I11.0 Hypertensive heart disease with heart failure; R94.31 Abnormal electrocardiogram [ECG] [EKG]; T38.0X5A Adverse effect of glucocorticoids and synthetic analogues, initial encounter; Z20.828 Contact with and (suspected) exposure to other viral communicable diseases; Z95.1 Presence of aortocoronary bypass graft; Z95.2 Presence of prosthetic heart valve
CPT/HCPCS: 36415; 36600; 70450-TC; 71045-TC-FY; 71250-TC; 80053; 82550; 82728; 82803; 82962; 83605; 83615; 83735; 83880; 84439; 84443; 84484; 85025; 85379; 85610; 85730; 86140; 86769; 86780; 86850; 86900; 86901; 87040; 87186; 87536; 87899; 93005; 93010; 93306-TC; 97116-GP; 97161-GP; 99291; J0131; J1100; U0003

== ENCOUNTER 2019-09-20 13:49 | Inpatient (IN) | payer OTHER, BC ==
--- NOTE | 2019-09-20 14:26 | PDOC ---
History of Present Illness - General History Source: Patient Exam Limitations: No Limitations <Shanta Watkins - Last Filed: 09/20/19 16:18> - History of Present Illness Initial Comments: 09/20/19 14:27 78 yo male with pmh of HTN, CAD, GI bleed, afib on eliquis, angina pectoris brought in by EMS from [facility] to ED for weakness and palpitations starting today. Pt explains that he has feeling generalized weak for one day, and then today he started having palpitations which currently does not have. Pt denies any appetite change, cough, fevers, chills, chest pain, shortness of breath, abdominal pain, dysuria, or urinary frequency. According to [facility] pt was tachycardic to 140s and that is why pt is brought in today. Pt recently discharged from hospital for possible COVID 19, and has been chronically on 3L of nasal canula. PMH: HTN, CAD, gi bleed, afib, angina pectoris, hx hallucination and depression meds:eliquis, atorvastatin, diltiazem 120mg, furosemide 20mg, pantaprazole, metroprolol 25mg, amoxicillin PSH: Hx of valve replacement Allergies: NKDA Social: [facility] [place]. Denies smoking, drugs, and alchol PCP: Dr. Aádn Saul 09/20/19 15:20 <Rubin Valdes - Last Filed: 09/20/19 16:27> - General Chief Complaint: Tachycardia Stated Complaint: TACHYCARDIA/WEAKNESS Time Seen by Provider: 09/20/19 13:54 Past History <Shanta Watkins - Last Filed: 09/20/19 16:18> - Medical History Anemia: No Asthma: No Cancer: No Cardiac Disorders: Yes (atrial flutter, angina, afib) CVA: No COPD: No CHF: No Dementia: No Diabetes: No GI Disorders: Yes (GI bleed) Disorders: No HTN: Yes Hypercholesterolemia: Yes Liver Disease: No Seizures: No Thyroid Disease: No - Surgical History Abdominal Surgery: Yes (inguinal and umbilical hernia repair) Appendectomy: No Cardiac Surgery: Yes (aortic valve repl, cabg, stents) Cholecystectomy: No Lung Surgery: No Neurologic Surgery: No Orthopedic Surgery: No - Immunization History Immunization Up to Date: No - Psycho-Social/Smoking History Smoking History: Former smoker Have you smoked in the past 12 months: No If you are a former smoker, when did you quit?: 40 years ago Information on smoking cessation initiated: No - Substance Abuse Hx (Audit-C & DAST Scrn) How often the patient has a drink containing alcohol: Never Score: In Men: 4 or > Positive; In Women: 3 or > Positive: 0 Screen Result (Pos requires Nsg. Audit-10AR): Negative In the last yr the pt used illegal drug/Rx for NonMed reason: No Score: Yes response is considered Positive: 0 Screen Result (Positive result requires Nsg. DAST-10): Negative <Rubin Valdes - Last Filed: 09/20/19 16:27> - Medical History Allergies/Adverse Reactions: Allergies Allergy/AdvReac Type Severity Reaction Status Date / Time No Known Allergies Allergy Verified 09/20/19 14:03 Home Medications: Ambulatory Orders Atorvastatin Ca [Lipitor] 40 mg PO HS 10/17/17 Furosemide [Lasix -] 20 mg PO ASDIR 10/17/17 Apixaban [Eliquis -] 5 mg PO BID #60 tablet 07/08/18 Diltiazem Cd [Cardizem Cd -] 120 mg PO DAILY #30 cap.cd.24h 09/12/19 Metoprolol Succinate [Toprol XL -] 75 mg PO BID #60 tab.sr.24h 09/12/19 Mirtazapine [Remeron -] 7.5 mg PO DAILY #30 tablet 09/12/19 predniSONE [Deltasone -] 10 mg PO DAILY #3 tablet 09/12/19 Acetaminophen [Tylenol .Regular Strength -] 650 mg PO Q4H PRN tablet 09/13/19 Albuterol Sulfate Inhaler - [Ventolin HFA Inhaler -] 2 puff IH Q4H PRN inhaler 09/13/19 Haloperidol Injection [Haldol Injection (Fast Acting) -] 5 mg IM Q6H PRN ml 09/13/19 Pantoprazole Sodium [Protonix -] 40 mg PO DAILY tablet.ec 09/13/19 Zinc Sulfate [Orazinc -] 220 mg PO BID capsule 09/13/19 Review of Systems - Review of Systems Comments:: 09/20/19 15:14 GENERAL/CONSTITUTIONAL: No fever or chills. Generalized weakness. HEAD, EYES, EARS, NOSE AND THROAT: No change in vision. No ear pain or discharg e. No sore throat. CARDIOVASCULAR: No chest pain or shortness of breath RESPIRATORY: Chronic cough since COVID. No wheezing, or hemoptysis. GASTROINTESTINAL: No nausea, vomiting, diarrhea or constipation. GENITOURINARY: No dysuria, frequency, or change in urination. MUSCULOSKELETAL: No joint or muscle swelling or pain. No neck or back pain. SKIN: No rash NEUROLOGIC: No headache, vertigo, loss of consciousness. Decreased strength. ENDOCRINE: No increased thirst. No abnormal weight change ALLERGIC/IMMUNOLOGIC: No hives or skin allergy. <Rubin Valdes - Last Filed: 09/20/19 16:27> *Physical Exam - Vital Signs Last Vital Signs Temp Pulse Resp BP Pulse Ox 98 F 66 16 100/58 L 92 L 09/20/19 13:53 09/20/19 13:53 09/20/19 13:53 09/20/19 13:53 09/20/19 13:53 <Shanta Watkins - Last Filed: 09/20/19 16:18> - Vital Signs Last Vital Signs Temp Pulse Resp BP Pulse Ox 98 F 66 16 100/58 L 92 L 09/20/19 13:53 09/20/19 13:53 09/20/19 13:53 09/20/19 13:53 09/20/19 13:53 - Physical Exam 09/20/19 15:17 GENERAL: Awake, alert, and fully oriented, in moderate distress HEAD: No signs of trauma, normocephalic, atraumatic EYES: EOMI, sclera anicteric, conjunctiva clear ENT: Auricles normal inspection, hearing grossly normal, nares patent, orophary nx clear without exudates. Moist mucosa NECK: Normal ROM, supple, no lymphadenopathy, JVD, or masses LUNGS: No distress, speaks full sentences, clear to auscultation bilaterally. Saturating at 100% on 3L NC (chronically on this) HEART: Regular rate and rhythm, normal S1 and S2, no murmurs, rubs or gallops, peripheral pulses normal and equal bilaterally. ABDOMEN: Soft, nontender, normoactive bowel sounds. No guarding, no rebound. No masses EXTREMITIES : Normal inspection, Normal range of motion, bilateral lower leg edema. No clubbing or cyanosis. NEUROLOGICAL: Cranial nerves II through XII intact. Normal speech, normal gait, no focal sensorimotor deficits. Normal finger to nose and dias to heel test. SKIN: Warm, Dry, normal turgor, no rashes or lesions noted 09/20/19 15:27 <CaronhildaRubin - Last Filed: 09/20/19 16:27> Heart Score/ECG Review - ECG Impressions Comment:: 09/20/19 15:10 Atrial flutter at 68 bpm No P waves T waves inverted in V2,v3,v4,v5,v6,I,II, aVL QRS 94, QT prolonged Similar to prior ecg <Jairo Valdesison - Last Filed: 09/20/19 16:27> ED Treatment Course - LABORATORY CBC & Chemistry Diagram: 09/20/19 14:24 09/20/19 14:24 - ADDITIONAL ORDERS Additional order review: Laboratory Results 09/20/19 09/20/19 09/20/19 14:24 14:24 14:24 PT with INR INR PTT (Actin FS) Sodium 139 Potassium 3.8 Chloride 110 H Carbon Dioxide 23 Anion Gap 6 L BUN 17.7 Creatinine 1.1 Est GFR (CKD-EPI)AfAm 74.65 Est GFR (CKD-EPI)NonAf 64.41 Random Glucose 94 Lactic Acid 1.6 Calcium 7.6 L Ferritin 566.4 H Total Bilirubin 0.8 AST 33 ALT 60 Alkaline Phosphatase 67 LD Total 357 H Creatine Kinase 36 Troponin I 0.07 H C-Reactive Protein 9.9 H B-Natriuretic Peptide 4915.8 H Total Protein 6.4 Albumin 2.0 L Blood Type O POSITIVE Antibody Screen Negative 09/20/19 14:24 PT with INR 30.60 H INR 2.57 H PTT (Actin FS) 31.3 Sodium Potassium Chloride Carbon Dioxide Anion Gap BUN Creatinine Est GFR (CKD-EPI)AfAm Est GFR (CKD-EPI)NonAf Random Glucose Lactic Acid Calcium Ferritin Total Bilirubin AST ALT Alkaline Phosphatase LD Total Creatine Kinase Troponin I C-Reactive Protein B-Natriuretic Peptide Total Protein Albumin Blood Type Antibody Screen 09/20/19 14:24 RBC 3.36 L MCV 93.1 MCHC 32.8 RDW 15.2 MPV 7.6 Neutrophils % 76.2 Lymphocytes % 15.3 D Monocytes % 5.2 D Eosinophils % 2.7 D Basophils % 0.6 - Medications Given in the ED: ED Medications Discontinued Medications Generic Name Dose Route Start Last Admin Trade Name Landon PRN Reason Stop Dose Admin Dexamethasone Sodium Phosphate 6 mg 09/20/19 15:34 09/20/19 15:59 Decadron Injection - IVPUSH 09/20/19 15:35 6 mg ONCE ONE Administration <Shanta Watkins - Last Filed: 09/20/19 16:18> - LABORATORY CBC & Chemistry Diagram: 09/20/19 14:24 09/20/19 14:24 - RADIOLOGY Radiology Studies Ordered: Category Date Time Status CHEST X-RAY PORTABLE* [RAD] Stat Radiology 09/20/19 14:17 Ordered <Rubin Valdes - Last Filed: 09/20/19 16:27> Medical Decision Making - Medical Decision Making 09/20/19 15:58 78 yo male with pmh htn, CAD, GI Bleed, Afib, angina pectoric presents to ED for new onset weakness of one day. Got blood work, EKG, CXR, and UA. Pt CXR showed increased interstitial filling and elevated troponin of .07. Pt was given 6 of decadron because of suspected COVID 19. Pt was admitted due to possible COVID on nasal canula and elevated troponin to Dr. Nuvia Harley. <Rubin Valdes - Last Filed: 09/20/19 16:27> Discharge - Discharge Information Problems reviewed: Yes - Admission Yes <Shanta Watkins - Last Filed: 09/20/19 16:18> - Discharge Information Problems reviewed: Yes - Admission Yes <Rubin Valdes - Last Filed: 09/20/19 16:27> - Discharge Information Clinical Impression/Diagnosis: Weakness, Suspected COVID-19 virus infection Condition: Guarded
[2019-09-20 14:39] LABS: BASO % 0.6 % (0-2.0); EOS % 2.7 % (0-4.5); HEMATOCRIT 31.3 % (35.4-49); HEMOGLOBIN 10.3 GM/dL (11.7-16.9); LYMPH % 15.3 % (8-40); MCH 30.5 pg (25.7-33.7); MCHC 32.8 g/dl (32.0-35.9); MEAN CELL VOLUME 93.1 fl (80-96); MEAN PLT VOLUME 7.6 fl (7.5-11.1); MONO % 5.2 % (3.8-10.2); NEUT % 76.2 % (42.8-82.8); PLATELET COUNT 133 K/MM3 (134-434); RBC 3.36 M/mm3 (4.00-5.60); RDW 15.2 % (11.9-15.9); WHITE BLOOD COUNT 6.8 K/mm3 (4.0-10.0)
[2019-09-20 14:48] LABS: INR 2.57 (0.83-1.09); PROTHROMBIN TIME (PATIENT) 30.6 SEC (9.7-13.0)
[2019-09-20 14:50] LABS: ACTIVATED PTT 31.3 SECONDS (25.2-36.5)
--- NOTE | 2019-09-20 15:24 | PDOC ---
Attending Attestation - Resident Resident Name: Rubin Valdes - ED Attending Attestation I have performed the following: I have examined & evaluated the patient, The case was reviewed & discussed with the resident, I agree w/resident's findings & plan - HPI HPI: 09/20/19 15:19 78 yo male with pmh of HTN, CAD, GI bleed, afib on eliquis, angina pectoris, recent covid 19 infection, brought in by EMS from [facility] to ED for weakness and palpitations starting today. Pt explains that he has feeling generalized weak for one day, and then today he started having palpitations which currently does not have. Pt denies any appetite change, cough, fevers, chills, chest pain, shortness of breath, abdominal pain, dysuria, or urinary frequency. According to [facility] pt was tachycardic to 140s as pt c/o palpitations and weakness - Physicial Exam PE: 09/20/19 15:20 Agree with the resident's HPI and PE as documented in the electronic medical record. NAD, alert and awake, EOMI, PERRL, nl conjunctiva, anicteric; neck supple. midline sternotomy scar. lungs scant crackles, no respiratory distress. irregularly irregular abdomen soft nontender. no rebound, guarding. Back nontender. BRADNE x4, no focal neuro deficits. No peripheral edema. normal color for ethnicity, WWP.no calf tenderess - Medical Decision Making 09/20/19 15:20 Vital Signs Temp Pulse Resp BP Pulse Ox 98 F 66 16 100/58 L 92 L 09/20/19 13:53 09/20/19 13:53 09/20/19 13:53 09/20/19 13:53 09/20/19 13:53 vitals reviewed afebrile normal hr here. no active respiratory distress sats 92% and borderline hypoxia. DDx chest pain: ACS, coronary vasospasm, NSTEMI, arrhythmia, unstable angina, PE, dissection, PUD, esophageal spasm, GERD, gastritis, costochondritis, pne umonia, pleurisy, pericarditis/myocarditis. dehydration, electrolyte/metabolic derangements. covid 19 infection. pulmonary edema, ptx. Interpreted by ED Physician: CXR (1 view): b/l infiltrates, bones appear intact and structures normal alignment, cardiac silhouette within normal limits. no free air under diaphragm, no pneumothorax. appearing worse than prior with covid 19 infection suspected EKG atrial fibrillation at 78 bpm, prolonged qtc interval almost 500ms, narrow QRS, unchanged ST depressions in lateral leads V4-6, Nonspecific T wave abnormalities, with deep TWI in lateral leads which is old (I, AVL, V4-6), unchanged from prior labs and lytes at baseline, baseline anemia. no wbc ct. elevated inflammatory markers elevated troponin of .07. Pt was given 6mg of decadron because of suspected COVID 19. hold abx, pt does have qtc prolongation. no fever/systemic features at this time. repeat covid 19 swab and antibody testing. Pt was admitted to Dr. Nuvia Harley. 09/20/19 16:17 Discharge - Discharge Information Problems reviewed: Yes Clinical Impression/Diagnosis: Weakness, Suspected COVID-19 virus infection Condition: Guarded - Admission Yes - Follow up/Referral - Patient Discharge Instructions - Post Discharge Activity
[2019-09-20 15:31] LABS: BILIRUBIN,TOTAL 0.8 mg/dL (0.2-1); BLOOD UREA NITROGEN 17.7 mg/dL (7-18); CALCIUM 7.6 mg/dL (8.5-10.1); CREATININE 1.1 mg/dL (0.55-1.3); N-TERMINAL BNP 4915.8 pg/ml (5-450); POTASSIUM 3.8 mmol/L (3.5-5.1); TOT PROT 6.4 g/dl (6.4-8.2)
[2019-09-20] MEDS ORDERED: DEXAMETHASONE SOD PHOSPHATE 4 MG/1 ML VIAL IVPUSH ONE (15:34)
[2019-09-20] MEDS ORDERED: DEXAMETHASONE SOD PHOSPHATE 4 MG/1 ML VIAL ONE (15:57)
[2019-09-20] MEDS ORDERED: ALBUTEROL SO4 HFA INHALER IH PRN (16:03)
[2019-09-20] MEDS ORDERED: ACETAMINOPHEN 325 MG TABLET (FP) PO PRN (16:03)
[2019-09-20 17:17] LABS: N-TERMINAL BNP 3996.8 pg/ml (5-450)
[2019-09-20] MEDS ORDERED: APIXABAN 5 MG TABLET ONE (22:41)
[2019-09-20] MEDS ORDERED: ATORVASTATIN CA 40 MG TABLET (FP) ONE (22:41)
[2019-09-20] MEDS ORDERED: metoPROLOL SUCCINATE 25 MG TAB.SR.24H (FP) ONE (22:41)
[2019-09-20] MEDS: metoPROLOL SUCCINATE 25 MG TAB.SR.24H (FP) PO SCH (22:46)
[2019-09-20] MEDS: APIXABAN 5 MG TABLET PO SCH (22:46)
[2019-09-20] MEDS: ATORVASTATIN CA 40 MG TABLET (FP) PO SCH (22:46)
--- NOTE | 2019-09-20 22:58 | HP ---
Admitting History and Physical - Primary Care Physician PCP: Kg Mccain - Admission Chief Complaint: elevated heart rate History of Present Illness: History of Present Illness Initial Comments: 09/20/19 14:27 78 yo male with pmh of HTN, CAD, GI bleed, afib on eliquis, angina pectoris brought in by EMS from [facility] to ED for weakness and palpitations starting today. Pt explains that he has feeling generalized weak for one day, and then today he started having palpitations which currently does not have. Pt denies any appetite change, cough, fevers, chills, chest pain, shortness of breath, abdominal pain, dysuria, or urinary frequency. According to [facility] pt was tachycardic to 140s and that is why pt is brought in today. Pt recently discharged from hospital for possible COVID 19, and has been chronically on 3L of nasal canula. PMH: HTN, CAD, gi bleed, afib, angina pectoris, hx hallucination and depression meds:eliquis, atorvastatin, diltiazem 120mg, furosemide 20mg, pantaprazole, metroprolol 25mg, amoxicillin PSH: Hx of valve replacement Allergies: NKDA Social: Coming from [facility] at [facility]. Denies smoking, drugs, and alchol PCP: Dr. Adán Saul - Past Medical History Cardiovascular: Yes: HTN, Hyperlipdemia, Other Gastrointestinal: Yes: Other - Past Surgical History Past Surgical History: Yes: Valve Replacement - Smoking History Smoking history: Former smoker Have you smoked in the past 12 months: No If you are a former smoker, when did you quit?: 40 years ago - Alcohol/Substance Use Hx Alcohol Use: No History of Substance Use: reports: None - Social History ADL: Independent History of Recent Travel: No Home Medications - Allergies Allergies/Adverse Reactions: Allergies Allergy/AdvReac Type Severity Reaction Status Date / Time No Known Allergies Allergy Verified 09/20/19 14:03 - Home Medications Home Medications: Ambulatory Orders Acetaminophen [Tylenol .Regular Strength -] 650 mg PO Q4H PRN tablet 09/13/19 Albuterol Sulfate Inhaler - [Ventolin HFA Inhaler -] 2 puff IH Q4H PRN inhaler 09/13/19 Ascorbic Acid [Vitamin C] 500 mg PO DAILY 09/21/19 Apixaban [Eliquis -] 5 mg PO BID #60 tablet 09/22/19 Atorvastatin Ca [Lipitor] 40 mg PO HS #30 tablet 09/22/19 Diltiazem Cd [Cardizem Cd -] 120 mg PO DAILY #30 cap.cd.24h 09/22/19 Furosemide [Lasix -] 20 mg PO DAILY #30 tablet 09/22/19 Metoprolol Succinate [Toprol Xl] 100 mg PO BID #60 tab.er.24h 09/22/19 Mirtazapine [Remeron -] 7.5 mg PO DAILY #30 tablet 09/22/19 Pantoprazole Sodium [Protonix -] 40 mg PO DAILY #30 tablet.ec 09/22/19 Review of Systems - Review of Systems Constitutional: denies: Chills, Fever Cardiovascular: reports: Palpitations. denies: Chest Pain, Shortness of Breath Physical Examination Vital Signs: Vital Signs Temperature 98 F 09/20/19 13:53 Pulse Rate 66 09/20/19 13:53 Respiratory Rate 16 09/20/19 13:53 Blood Pressure 100/58 L 09/20/19 13:53 O2 Sat by Pulse Oximetry (%) 92 L 09/20/19 13:53 Constitutional: Yes: No Distress, Calm Cardiovascular: Yes: Pulse Irregular Respiratory: Yes: Diminished Gastrointestinal: Yes: Normal Bowel Sounds, Soft. No: Tenderness Edema: No Labs: CBC, BMP 09/20/19 14:24 09/20/19 14:24 Imaging - Results Chest X-ray: Image Reviewed EKG: Image Reviewed Problem List - Problems (1) Weakness Code(s): R53.1 - WEAKNESS (2) Atrial flutter Code(s): I48.92 - UNSPECIFIED ATRIAL FLUTTER Qualifiers: Atrial flutter type: unspecified Qualified Code(s): I48.92 - Unspecified atrial flutter (3) CAD (coronary artery disease) Code(s): I25.10 - ATHSCL HEART DISEASE OF [place] CORONARY ARTERY W/O ANG PCTRS Qualifiers: Coronary Disease-Associated Artery/Lesion type: [place] artery [place] vs. transplanted heart: [place] heart Associated angina: without angina Qualified Code(s): I25.10 - Atherosclerotic heart disease of [place] coronary artery without angina pectoris Assessment/Plan PLAN check cardiac enzymes Cardiology eval Telemetry O2 Check COVID 19 Does not need Steroids follow up inflammatory markers
[2019-09-21 03:42] VITALS: BMI 21.9
--- NOTE | 2019-09-21 06:56 | CON.CARD ---
Cardiology Consult (text) - Consultation Consultation Note: Chief Complaint: Events noted, notes reviewed, reported increasing dyspnea, intermittent palpitations, denied chest discomfort, persistent atrial flutter with periods of rapid ventricular response- improved heart rate control History of Present Illness: Seen and examined on telemetry. Full consult dictated As outlined in the prior notes from a recent hospitalization atrial flutter is harder to rate control; ideally cardioversion is to be performed pending improvement of his respiratory status Medications: Current Medications Generic Name Dose Route Start Last Admin Trade Name Freq PRN Reason Stop Dose Admin Acetaminophen 650 mg 09/20/19 16:03 Tylenol - PO Q4H PRN FEVER Albuterol Sulfate 2 puff 09/20/19 16:03 Ventolin Hfa Inhaler - IH Q4H PRN SHORT OF BREATH/WHEEZING Apixaban 5 mg 09/20/19 22:00 09/20/19 22:46 Eliquis - PO 5 mg BID MAGI Administration Atorvastatin Calcium 40 mg 09/20/19 22:00 09/20/19 22:46 Lipitor - PO 40 mg HS MAGI Administration Diltiazem HCl 120 mg 09/21/19 10:00 Cardizem Cd - PO DAILY MAGI Metoprolol Succinate 75 mg 09/20/19 22:00 09/20/19 22:46 Toprol Xl - PO 75 mg BID MAGI Administration Mirtazapine 7.5 mg 09/21/19 10:00 Remeron - PO DAILY MAGI Pantoprazole Sodium 40 mg 09/21/19 10:00 Protonix - PO DAILY MAGI Review of Systems Constitutional: denies Chills or Fever Respiratory: reports: Dyspnea Cardiovascular: As noted above Gastrointestinal: denies Nausea, Vomiting, Diarrhea or Constipation or Abdominal Discomfort Genitourinary: No Symptoms Reported Musculoskeletal: No Symptoms Reported Vital Signs: Last Vital Signs Temp Pulse Resp BP Pulse Ox 97.5 F L 66 20 105/66 92 L 09/21/19 06:00 09/21/19 06:00 09/21/19 06:00 09/21/19 06:00 09/21/19 06:00 Intake & Output 09/18/19 09/19/19 09/20/19 09/21/19 23:59 23:59 23:59 23:59 Intake Total 250 Balance 250 Weight 139 lb 136 lb 2 oz Neck: Supple Negative JVD Respiratory: Diminished Breath Sounds at the Bases Cardiovascular: S1 S2 Irregularly Irregular grade 2/6 systolic ejection murmur Gastrointestinal: Soft Benign Normal Bowel Sounds Ext: Negative Edema Labs: Troponin, BNP 09/20/19 09/20/19 09/21/19 14:24 16:26 01:29 Troponin I 0.07 H 0.06 H 0.03 B-Natriuretic Peptide 4915.8 H 3996.8 H CBC, BMP 09/20/19 14:24 09/20/19 14:24 Hepatic Panel Total Bilirubin 0.8 mg/dL (0.2-1) 09/20/19 14:24 AST 33 U/L (15-37) 09/20/19 14:24 ALT 60 U/L (13-61) 09/20/19 14:24 Alkaline Phosphatase 67 U/L (45-117) 09/20/19 14:24 Albumin 2.0 g/dl (3.4-5.0) L 09/20/19 14:24 INR, PTT INR 2.57 (0.83-1.09) H 09/20/19 14:24 Assessment/Plan ASSESSMENT: 1. Clinical presentation is consistent with chronic class I-II NYHA classification LV diastolic heart failure, no evidence of acute decompensation- chest x-ray findings related to patient's recent coronavirus/COVID 19 pneumonitis- elevated BNP level related to patient's chronic heart failure syndrome and persistence of atrial arrhythmia/atrial flutter 2. History of a recent acute hypoxic respiratory failure related to bronchopneumonia with probable sepsis syndrome, coronavirus/COVID 19 3. Persistent atrial flutter with periods rapid ventricular response- improved heart rate control [id number] score of 5 on DOAC's/Eliquis 4. CAD post CABG with evidence of demand ischemia related to the above-noted clinical presentation angina pectoris 5. Aortic valve stenosis post SAVR/bio-prosthesis- with LA appendage ligation 6. Hypertensive cardiovascular disease 7. Hypercholesterolemia 8. History of altered mental status etiology of which was unclear- prior history of clinical depression 9. History of bacteremia- endocarditis unlikely 10. Anemia PLAN: 1. Continue Toprol XL and dose titration as needed hemodynamics permitting 2. Continue Cardizem CD and dose titration as needed hemodynamics permitting 3. Continue Atorvastatin 4. Continue DOAC's/Eliquis 5. Reinitiate diuretics/Lasix therapy with caution and close monitoring of renal function and electrolytes 6. As outlined in the prior notes from recent hospitalization recommend early intervention for management of the above-noted recurrent/persistent atrial flutter- synchronized elective cardioversion- pending improvement of his respiratory status Kate Ang MD
[2019-09-21] MEDS: APIXABAN 5 MG TABLET PO SCH ×2 (09:20→21:12)
[2019-09-21] MEDS: PANTOPRAZOLE 40 MG TABLET PO SCH (09:20)
[2019-09-21] MEDS: MIRTAZAPINE 15 MG TABLET (FP) PO SCH (09:20)
[2019-09-21] MEDS: metoPROLOL SUCCINATE 25 MG TAB.SR.24H (FP) PO SCH ×2 (09:21→21:13)
--- NOTE | 2019-09-21 10:45 | EKG ---
Test Reason : Blood Pressure : / mmHG Vent. Rate : 066 BPM Atrial Rate : 267 BPM P-R Int : 000 ms QRS Dur : 088 ms QT Int : 464 ms P-R-T Axes : 000 -11 178 degrees QTc Int : 486 ms ATRIAL FLUTTER WITH VARIABLE A-V BLOCK LEFT VENTRICULAR HYPERTROPHY WITH REPOLARIZATION ABNORMALITY PROLONGED QT ABNORMAL ECG WHEN COMPARED WITH ECG OF 07-SEP-2019 15:09, VENT. RATE HAS DECREASED BY [address] LESS DEPRESSED IN INFERIOR LEADS ST NO LONGER DEPRESSED IN ANTERIOR LEADS Confirmed by Chano Alonso ([id number]) on 09/21/2019 10:44:45 AM Referred By: Confirmed By:Chano Alonso
--- NOTE | 2019-09-21 12:32 | CONS ---
DATE OF CONSULTATION: 09/21/2019 CONSULTATION REQUESTED BY: Nuvia Harley MD CHIEF COMPLAINT: Evaluation of recurrent dyspnea and palpitations. HISTORY: Patient known to our service from office followup and recent hospitalization. [id number] male of /Portuguese descent with known history of coronary artery disease post coronary artery bypass grafting, angina pectoris, diastolic left ventricular dysfunction with clinical class I-II [place] Heart Association classification left ventricular failure, recently persistent atrial flutter with periods of rapid ventricular response on anticoagulation therapy with Eliquis, aortic stenosis post surgical aortic valve replacement, bioprosthesis, in combination with left atrial appendage ligation, hypertensive cardiovascular disease, hypercholesterolemia, clinical depression, who was recently admitted to [facility] with acute hypoxic respiratory failure attributed to bronchopneumonia with suspected coronavirus/COVID-19 infection in conjunction with acute on chronic congestive heart failure. Patient was treated medically and subsequently discharged to a rehabilitation facility, from which he was readmitted with increasing dyspnea, and in addition, intermittent palpitations. Patient did not report any orthopnea or paroxysmal nocturnal dyspnea. Patient did not report any peripheral edema. Patient did not report any associated dizziness or lightheadedness with the above-noted palpitations. No reported near-syncope or syncope. Patient denied any chest discomfort. Patient reports fatigue and tiredness. Patient currently is resting comfortably in bed, does not appear to be in any distress. PAST MEDICAL HISTORY: Coronary artery disease post coronary artery bypass grafting; angina pectoris; diastolic left ventricular dysfunction with chronic class I-II George Heart Association classification left ventricular failure; paroxysmal atrial flutter post cardioversion; recent recurrent arrhythmia; aortic valve disease; aortic stenosis post surgical aortic valve replacement, bioprosthesis; in conjunction with left atrial appendage ligation; recent probable coronavirus/COVID-19 bronchopneumonia with sepsis syndrome; hypertensive cardiovascular disease; hypercholesterolemia. SOCIAL HISTORY: Denies smoking. FAMILY HISTORY: Positive coronary artery disease. ALLERGIES: None reported. MEDICATIONS: Medical therapy currently includes acetaminophen 650 mg every 4 hours as needed; Ventolin HFA, 2 puffs every 4 hours as needed; Eliquis 5 mg twice a day; Lipitor 40 mg once a day; Cardizem CD 120 mg once a day; Toprol-XL 75 mg twice a day; Remeron 7.5 mg once a day; Protonix 40 mg once a day. REVIEW OF SYSTEMS: Head and Neck: Denies headache, photophobia, blurring of vision. Respiratory: No cough or sputum production. Cardiovascular: As noted above. Gastrointestinal: No nausea, vomiting, diarrhea, abdominal discomfort. Genitourinary: No symptoms reported. Musculoskeletal: No symptoms reported. PHYSICAL EXAMINATION: Vital Signs: Blood pressure is 105/66 mmHg. Pulse rate is 66 beats a minute. Head and Neck: Pupils equally react to light and accommodation. External ocular muscles are intact. Anicteric sclerae. Negative JVD. No bruit appreciated. Chest: Diminished breath sounds at the bases. Cardiovascular: S1, S2, irregularly irregular. Grade 2/6 systolic ejection murmur. Abdomen: Soft, benign, normoactive bowel sounds. Extremities: Negative edema. Intact peripheral pulses. No calf tenderness. LABORATORY: Troponin I levels were noted. BNP initially 4915.8, repeat 3996.8. CBC revealed white cell count 6.8, hemoglobin 10.3, platelet count 133. Basic metabolic profile revealed a sodium 139, potassium 3.8, BUN 17.7, creatinine 1.1, glucose 94. Liver function testing noted. ASSESSMENT: 1. Clinical presentation is consistent with chronic class I-II George Heart Association classification left ventricular diastolic heart failure. No evidence of acute decompression. Chest x-ray findings related to patient's coronavirus/COVID-19 pneumonitis. Elevated BNP levels related to patient's chronic heart failure syndrome and persistence of atrial arrhythmia/atrial flutter. 2. History of a recent acute hypoxic respiratory failure related to bronchopneumonia with probable sepsis syndrome, coronavirus/COVID-19 pneumonitis. 3. Persistent atrial flutter with periods of rapid ventricular response, improved heart rate control, [id number] score of 5 on Eliquis therapy. 4. Coronary artery disease post coronary artery bypass grafting with evidence of demand ischemia, angina pectoris. 5. Aortic valve stenosis post surgical aortic valve replacement, bioprosthesis, with left atrial appendage ligation. 6. Hypertensive cardiovascular disease. 7. Hypercholesterolemia. 8. History of altered mental status, etiology of which was unclear. 9. Prior history of clinical depression. 10. History of bacteremia, recent hospitalization, endocarditis likely. 11. Anemia. RECOMMENDATION: 1. Continuation of Toprol-XL therapy and dose titration as needed, hemodynamics permitting. 2. Continuation of Cardizem CD and dose titration as needed, hemodynamics permitting. 3. Continuation of Lipitor therapy. 4. Continuation of Eliquis therapy. 5. Reinitiate diuretics, Lasix therapy, with caution and close monitoring of renal function and electrolytes. 6. As outlined in the prior note from recent hospitalization, recommend early intervention for management of the above-noted recurrent/persistent atrial flutter. Synchronized electrocardioversion pending improvement of patient's respiratory status. Thank you for the kind referral. ROMI DERAS M.D. [id number]
[2019-09-21] MEDS: ATORVASTATIN CA 40 MG TABLET (FP) PO SCH (21:12)
--- NOTE | 2019-09-21 21:28 | PN ---
Progress Note (short form) - Note Progress Note: No distress No chest pain No palpitations Vital Signs - 24 hr 09/21/19 09/21/19 09/21/19 01:13 02:34 03:26 Temperature 97.4 F L 97.8 F 97.8 F Pulse Rate 87 87 Pulse Rate [ 84 Right Radial] Respiratory 20 18 18 Rate Blood Pressure 111/68 111/68 Blood Pressure 117/61 [Left Arm] O2 Sat by Pulse 99 93 L 95 Oximetry (%) 09/21/19 09/21/19 09/21/19 06:00 09:00 13:51 Temperature 97.5 F L 98 F 97.7 F Pulse Rate 66 68 65 Pulse Rate [ Right Radial] Respiratory 20 18 Rate Blood Pressure 105/66 113/66 108/58 L Blood Pressure [Left Arm] O2 Sat by Pulse 92 L 92 L Oximetry (%) 09/21/19 17:00 Temperature 97.7 F Pulse Rate 59 L Pulse Rate [ Right Radial] Respiratory 20 Rate Blood Pressure 102/54 L Blood Pressure [Left Arm] O2 Sat by Pulse Oximetry (%) Current Medications Generic Name Dose Route Start Last Admin Trade Name Freq PRN Reason Stop Dose Admin Acetaminophen 650 mg 09/20/19 16:03 Tylenol - PO Q4H PRN FEVER Albuterol Sulfate 2 puff 09/20/19 16:03 Ventolin Hfa Inhaler - IH Q4H PRN SHORT OF BREATH/WHEEZING Apixaban 5 mg 09/20/19 22:00 09/21/19 21:12 Eliquis - PO 5 mg BID MAGI Administration Atorvastatin Calcium 40 mg 09/20/19 22:00 09/21/19 21:12 Lipitor - PO 40 mg HS MAGI Administration Diltiazem HCl 120 mg 09/21/19 10:00 09/21/19 09:21 Cardizem Cd - PO 120 mg DAILY MAGI Administration Metoprolol Succinate 75 mg 09/20/19 22:00 09/21/19 21:13 Toprol Xl - PO 75 mg BID MAGI Administration Mirtazapine 7.5 mg 09/21/19 10:00 09/21/19 09:20 Remeron - PO 7.5 mg DAILY MAGI Administration Pantoprazole Sodium 40 mg 09/21/19 10:00 09/21/19 09:20 Protonix - PO 40 mg DAILY MAGI Administration Laboratory Results - last 24 hr 08/04/20 01:29 Creatine Kinase 39 Troponin I 0.03 S1 s2 Irregular Lungs decreased Abd- soft, NT No edema PLAN continue meds check pre and post O2 sat cardiology eval noted pt does not want to go back to [place] dc planning to home rate control Problem List - Problems (1) Atrial fibrillation Code(s): I48.91 - UNSPECIFIED ATRIAL FIBRILLATION (2) CAD (coronary artery disease) Code(s): I25.10 - ATHSCL HEART DISEASE OF [place] CORONARY ARTERY W/O ANG PCTRS Qualifiers: Coronary Disease-Associated Artery/Lesion type: [place] artery [place] vs. transplanted heart: [place] heart Associated angina: without angina Qualified Code(s): I25.10 - Atherosclerotic heart disease of [place] coronary artery without angina pectoris (3) History of depression Code(s): Z86.59 - PERSONAL HISTORY OF OTHER MENTAL AND BEHAVIORAL DISORDERS (4) Hx of CABG Code(s): Z95.1 - PRESENCE OF AORTOCORONARY BYPASS GRAFT (5) Hypercholesterolemia Code(s): E78.00 - PURE HYPERCHOLESTEROLEMIA, UNSPECIFIED
[2019-09-21] MEDS: FUROSEMIDE 20 MG TABLET (FP) PO SCH (21:40)
[2019-09-22 05:39] VITALS: BP 133/63; TEMP 97.8
[2019-09-22 07:56] LABS: HEMATOCRIT 32.5 % (35.4-49); HEMOGLOBIN 10.5 GM/dL (11.7-16.9); MCH 29.8 pg (25.7-33.7); MCHC 32.2 g/dl (32.0-35.9); MEAN CELL VOLUME 92.6 fl (80-96); PLATELET COUNT 182 K/MM3 (134-434); RDW 15.4 % (11.9-15.9)
[2019-09-22 08:35] LABS: ALBUMIN 2.2 g/dl (3.4-5.0); BILIRUBIN,TOTAL 0.9 mg/dL (0.2-1); BLOOD UREA NITROGEN 26.2 mg/dL (7-18); CALCIUM 7.9 mg/dL (8.5-10.1); CREATININE 0.9 mg/dL (0.55-1.3); POTASSIUM 4.1 mmol/L (3.5-5.1); TOT PROT 6.8 g/dl (6.4-8.2)
[2019-09-22] MEDS: MIRTAZAPINE 15 MG TABLET (FP) PO SCH (09:14)
[2019-09-22] MEDS: PANTOPRAZOLE 40 MG TABLET PO SCH (09:15)
[2019-09-22] MEDS: APIXABAN 5 MG TABLET PO SCH (09:15)
[2019-09-22] MEDS: metoPROLOL SUCCINATE 25 MG TAB.SR.24H (FP) PO SCH (09:15)
[2019-09-22] MEDS: FUROSEMIDE 20 MG TABLET (FP) PO SCH (09:16)
--- NOTE | 2019-09-22 10:31 | PN ---
Progress Note, Physician History of Present Illness: Dyspnea and intermittent palpitations improved, denied chest discomfort, persistent atrial flutter with periods of rapid ventricular response- improved heart rate control - Current Medication List Current Medications: Active Medications Acetaminophen (Tylenol -) 650 mg PO Q4H PRN PRN Reason: FEVER Albuterol Sulfate (Ventolin Hfa Inhaler -) 2 puff IH Q4H PRN PRN Reason: SHORT OF BREATH/WHEEZING Apixaban (Eliquis -) 5 mg PO BID [facility] Last Admin: 09/22/19 09:15 Dose: 5 mg Documented by: Atorvastatin Calcium (Lipitor -) 40 mg PO HS [facility] Last Admin: 09/21/19 21:12 Dose: 40 mg Documented by: Diltiazem HCl (Cardizem Cd -) 120 mg PO DAILY [facility] Last Admin: 09/22/19 09:14 Dose: 120 mg Documented by: Furosemide (Lasix -) 20 mg PO DAILY [facility] Last Admin: 09/22/19 09:16 Dose: 20 mg Documented by: Metoprolol Succinate (Toprol Xl -) 75 mg PO BID [facility] Last Admin: 09/22/19 09:15 Dose: 75 mg Documented by: Mirtazapine (Remeron -) 7.5 mg PO DAILY [facility] Last Admin: 09/22/19 09:14 Dose: 7.5 mg Documented by: Pantoprazole Sodium (Protonix -) 40 mg PO DAILY [facility] Last Admin: 09/22/19 09:15 Dose: 40 mg Documented by: - Objective Vital Signs: Vital Signs Temperature 97.8 F 09/22/19 05:39 Pulse Rate 65 09/22/19 05:39 Respiratory Rate 20 09/22/19 05:39 Blood Pressure 133/63 09/22/19 05:39 O2 Sat by Pulse Oximetry (%) 94 L 09/22/19 09:00 Constitutional: Yes: No Distress, Calm, Thin Neck: Yes: Supple Cardiovascular: Yes: Pulse Irregular, Murmur (2/6 SM) Respiratory: Yes: Regular, CTA Bilaterally Gastrointestinal: Yes: Normal Bowel Sounds, Soft Edema: No Labs: CBC, BMP 09/22/19 06:30 09/22/19 06:30 INR, PTT INR 2.57 (0.83-1.09) H 09/20/19 14:24 - ....Imaging EKG: Report Reviewed (Tele: Aflutter 90s) Problem List - Problems (1) Acute on chronic diastolic (congestive) heart failure Code(s): I50.33 - ACUTE ON CHRONIC DIASTOLIC (CONGESTIVE) HEART FAILURE (2) Aortic valve stenosis Code(s): I35.0 - NONRHEUMATIC AORTIC (VALVE) STENOSIS Qualifiers: Cardiac valve disease etiology: nonrheumatic Qualified Code(s): I35.0 - Nonrheumatic aortic (valve) stenosis (3) Atrial flutter Code(s): I48.92 - UNSPECIFIED ATRIAL FLUTTER Qualifiers: Atrial flutter type: unspecified Qualified Code(s): I48.92 - Unspecified atrial flutter (4) CAD (coronary artery disease) Code(s): I25.10 - ATHSCL HEART DISEASE OF [place] CORONARY ARTERY W/O ANG PCTRS Qualifiers: Coronary Disease-Associated Artery/Lesion type: [place] artery [place] vs. transplanted heart: [place] heart Associated angina: without angina Qualified Code(s): I25.10 - Atherosclerotic heart disease of [place] coronary artery without angina pectoris (5) HTN (hypertension) Code(s): I10 - ESSENTIAL (PRIMARY) HYPERTENSION Qualifiers: Hypertension type: essential hypertension (6) Hx of CABG Code(s): Z95.1 - PRESENCE OF AORTOCORONARY BYPASS GRAFT (7) Hypercholesterolemia Code(s): E78.00 - PURE HYPERCHOLESTEROLEMIA, UNSPECIFIED (8) S/P AVR (aortic valve replacement) Code(s): Z95.2 - PRESENCE OF PROSTHETIC HEART VALVE (9) S/P left atrial appendage ligation Code(s): Z98.890 - OTHER SPECIFIED POSTPROCEDURAL STATES Assessment/Plan Echo 09/03/2019 Post-op septal motion, normal LVEF 50-55%, mod cLVH, normal RV size and fxn, mild LAE, mild MR, TR, bioAVR, mild AR, restrictive physiology Echocardiography October 12, 2018 revealed mild degree of concentric left ventricular hypertrophy with normal left ventricular systolic function and estimated LVEF between 65-70%, mild left atrial dilatation, normal right ventricular size and systolic function, aortic valve bioprosthesis with no aortic valve insufficiency, moderately dilated ascending aorta, mild thickening of the mitral valve leaflets with mild mitral valve regurgitation, mild to moderate tricuspid valve regurgitation with calculated RVSP of [address]: Small-moderate right and very small left effusion, pulm edema TAA 3.9 cm 1. Clinical presentation is consistent with chronic class I-II NYHA classification LV diastolic heart failure, no evidence of acute decompensation- chest x-ray findings related to patient's recent coronavirus/COVID 19 pneumonitis- elevated BNP level related to patient's chronic heart failure syndrome and persistence of atrial arrhythmia/atrial flutter 2. History of a recent acute hypoxic respiratory failure related to bronchopneumonia with probable sepsis syndrome, coronavirus/COVID 19 3. Persistent atrial flutter with periods rapid ventricular response- improved heart rate control [id number] score of 5 on DOAC's/Eliquis 4. CAD post CABG with evidence of demand ischemia related to the above-noted clinical presentation angina pectoris 5. Aortic valve stenosis post SAVR/bio-prosthesis- with LA appendage ligation 6. Hypertensive cardiovascular disease 7. Hypercholesterolemia 8. History of altered mental status etiology of which was unclear- prior history of clinical depression 9. History of bacteremia- endocarditis unlikely 10. Anemia PLAN: 1. Increase Toprol XL 100 bid with dose titration as needed hemodynamics permitting 2. Continue Cardizem CD 120 qd with dose titration as needed hemodynamics permitting 3. Continue Atorvastatin 40 qd 4. Continue Eliquis 5 bid 5. Continue Lasix 20 qd with monitoring of diuretic response, renal function and electrolytes 6. As outlined in the prior notes from recent hospitalization recommend early intervention for management of the above-noted recurrent/persistent atrial flutter- synchronized elective cardioversion- pending improvement of his respiratory status
[2019-09-22 10:38] VITALS: PULSE 135
[2019-09-22] MEDS ORDERED: metoPROLOL SUCCINATE 25 MG TAB.SR.24H (FP) PO ONE (12:13)
--- NOTE | 2019-09-22 13:46 | DS ---
Physical Examination Vital Signs: Vital Signs Temperature 97.8 F 09/22/19 05:39 Pulse Rate 135 H 09/22/19 10:35 Respiratory Rate 20 09/22/19 05:39 Blood Pressure 133/63 09/22/19 05:39 O2 Sat by Pulse Oximetry (%) 91 L 09/22/19 10:35 Constitutional: Yes: No Distress, Calm Cardiovascular: Yes: Pulse Irregular Respiratory: Yes: Diminished Gastrointestinal: Yes: Normal Bowel Sounds, Soft. No: Tenderness Edema: No Labs: CBC, BMP 09/22/19 06:30 09/22/19 06:30 Discharge Summary Problems reviewed: Yes Reason For Visit: SUSPECTED COVID ATRIAL FIBRILATION ACUTE CORONARY Current Active Problems Suspected COVID-19 virus infection (Acute) Weakness (Acute) Hospital Course: - History of Present Illness Initial Comments: 09/20/19 14:27 78 yo male with pmh of HTN, CAD, GI bleed, afib on eliquis, angina pectoris brought in by EMS from [facility] to ED for weakness and palpitations starting today. Pt explains that he has feeling generalized weak for one day, and then today he started having palpitations which currently does not have. Pt denies any appetite change, cough, fevers, chills, chest pain, shortness of breath, abdominal pain, dysuria, or urinary frequency. According to [facility] pt was tachycardic to 140s and that is why pt is brought in today. Pt recently d ischarged from hospital for possible COVID 19, and has been chronically on 3L of nasal canula. PMH: HTN, CAD, gi bleed, afib, angina pectoris, hx hallucination and depression meds:eliquis, atorvastatin, diltiazem 120mg, furosemide 20mg, pantaprazole, metroprolol 25mg, amoxicillin PSH: Hx of valve replacement Allergies: NKDA Social: Coming from [facility] at [facility]. Denies smoking, drugs, and alchohol HOSPITAL COURSE Pt admitted to telemetry COVID negative Seen by [facility]diology Metoprolol increased to 100mg BID Rate is controlled He qualifies for home O2 Advised to use O2 at all times Pt ambulating well Stable for dc home needs follow up with Cardiology to schedule for cardioversion Spoke with son-- Shreyas Condition: Improved - Instructions Referrals: Joe Esqueda MD [Staff Physician] - Nuvia Harley MD [Staff Physician] - Disposition: HOME - Home Medications Comprehensive Discharge Medication List: Ambulatory Orders Acetaminophen [Tylenol .Regular Strength -] 650 mg PO Q4H PRN tablet 09/13/19 Albuterol Sulfate Inhaler - [Ventolin HFA Inhaler -] 2 puff IH Q4H PRN inhaler 09/13/19 Ascorbic Acid [Vitamin C] 500 mg PO DAILY 09/21/19 Apixaban [Eliquis -] 5 mg PO BID #60 tablet 09/22/19 Atorvastatin Ca [Lipitor] 40 mg PO HS #30 tablet 09/22/19 Diltiazem Cd [Cardizem Cd -] 120 mg PO DAILY #30 cap.cd.24h 09/22/19 Furosemide [Lasix -] 20 mg PO DAILY #30 tablet 09/22/19 Metoprolol Succinate [Toprol Xl] 100 mg PO BID #60 tab.er.24h 09/22/19 Mirtazapine [Remeron -] 7.5 mg PO DAILY #30 tablet 09/22/19 Pantoprazole Sodium [Protonix -] 40 mg PO DAILY #30 tablet.ec 09/22/19
--- NOTE | 2019-09-22 14:41 | EKG ---
Test Reason : Blood Pressure : / mmHG Vent. Rate : 075 BPM Atrial Rate : 264 BPM P-R Int : 000 ms QRS Dur : 096 ms QT Int : 460 ms P-R-T Axes : 251 -11 182 degrees QTc Int : 513 ms ATRIAL FLUTTER WITH VARIABLE A-V BLOCK LEFT VENTRICULAR HYPERTROPHY WITH REPOLARIZATION ABNORMALITY PROLONGED QT ABNORMAL ECG WHEN COMPARED WITH ECG OF 20-SEP-2019 15:00, ST NOW DEPRESSED IN ANTERIOR LEADS Confirmed by MD Ruba, Joaquin ([id number]) on 09/22/2019 2:41:00 PM Referred By: Confirmed By:Joaquin Yeh MD
--- NOTE | 2019-09-22 14:41 | EKG ---
Test Reason : Blood Pressure : / mmHG Vent. Rate : 078 BPM Atrial Rate : 267 BPM P-R Int : 000 ms QRS Dur : 094 ms QT Int : 438 ms P-R-T Axes : 000 -11 181 degrees QTc Int : 499 ms ATRIAL FLUTTER WITH VARIABLE A-V BLOCK WITH PREMATURE VENTRICULAR OR ABERRANTLY CONDUCTED COMPLEXES LEFT VENTRICULAR HYPERTROPHY WITH REPOLARIZATION ABNORMALITY PROLONGED QT ABNORMAL ECG WHEN COMPARED WITH ECG OF 07-SEP-2019 15:09, VENT. RATE HAS DECREASED BY [address] LESS DEPRESSED IN INFERIOR LEADS ST MORE DEPRESSED LATERAL LEADS Confirmed by MD Ruba, Joaquin ([id number]) on 09/22/2019 2:40:50 PM Referred By: ROBYN SCHREIBER Confirmed By:Joaquin Yeh MD
[2019-09-22] MEDS ORDERED: metoPROLOL SUCCINATE 25 MG TAB.SR.24H (FP) PO SCH (22:00)
== END 2019-09-22 14:46 | disposition home or self-care (01) | DRG 309 ==
LOC: JER 13:49 → JERBED 16:36 → J4W 09-21 02:27
PROVIDERS: ADMIT Internal Medicine; ATTEND Internal Medicine
DX: I48.92 Unspecified atrial flutter (principal); I50.32 Chronic diastolic (congestive) heart failure; R44.3 Hallucinations, unspecified; R00.2 Palpitations; I25.119 Atherosclerotic heart disease of native coronary artery with unspecified angina pectoris; I11.0 Hypertensive heart disease with heart failure; F32.9 Major depressive disorder, single episode, unspecified; I48.91 Unspecified atrial fibrillation; D64.9 Anemia, unspecified; E78.00 Pure hypercholesterolemia, unspecified; K40.90 Unilateral inguinal hernia, without obstruction or gangrene, not specified as recurrent; Z95.2 Presence of prosthetic heart valve; Z95.1 Presence of aortocoronary bypass graft; Z98.61 Coronary angioplasty status
CPT/HCPCS: 36415; 71045-TC-FY; 80053; 82550; 82728; 83605; 83615; 83880; 84484; 85025; 85027; 85610; 85730; 86140; 86769; 86850; 86900; 86901; 93005; 93010; 94761; 97116-GP; 97161-GP; 99285-25

== ENCOUNTER 2019-09-23 18:17 | Inpatient (IN) | payer OTHER, BC ==
[2019-09-23 19:00] LABS: BASO % 0.6 % (0-2.0); EOS % 0.6 % (0-4.5); HEMATOCRIT 36.3 % (35.4-49); HEMOGLOBIN 11.9 GM/dL (11.7-16.9); LYMPH % 17.6 % (8-40); MCH 30.4 pg (25.7-33.7); MCHC 32.8 g/dl (32.0-35.9); MEAN CELL VOLUME 92.8 fl (80-96); MEAN PLT VOLUME 7.7 fl (7.5-11.1); MONO % 4.2 % (3.8-10.2); PLATELET COUNT 204 K/MM3 (134-434); RBC 3.91 M/mm3 (4.00-5.60); RDW 15.6 % (11.9-15.9); WHITE BLOOD COUNT 8.3 K/mm3 (4.0-10.0)
[2019-09-23 19:02] LABS: ARTERIAL BLD GAS O2 SATURATION 99.8 mmHg (95-98); ARTERIAL BLOOD GAS BASE EXCESS -3.9 mmol/L (-2-2); ARTERIAL BLOOD GAS PO2 389.3 mmHg (80-100); ARTERIAL BLOOD GAS pH 7.498 (7.350-7.450)
[2019-09-23 19:08] LABS: INR 1.97 (0.83-1.09); PROTHROMBIN TIME (PATIENT) 23.4 SEC (9.7-13.0)
[2019-09-23 19:28] LABS: ALBUMIN 2.8 g/dl (3.4-5.0); BILIRUBIN,TOTAL 1.1 mg/dL (0.2-1); BLOOD UREA NITROGEN 18.2 mg/dL (7-18); CREATININE 1.2 mg/dL (0.55-1.3); N-TERMINAL BNP 4358.8 pg/ml (5-450); POTASSIUM 3.7 mmol/L (3.5-5.1); TOT PROT 8.1 g/dl (6.4-8.2)
[2019-09-23] MEDS ORDERED: FUROSEMIDE 40 MG/4 ML INJECTABLE VIAL IVPUSH ONE (19:39)
[2019-09-23] MEDS ORDERED: FUROSEMIDE 40 MG/4 ML INJECTABLE VIAL ONE (19:40)
--- NOTE | 2019-09-23 19:50 | PDOC ---
History of Present Illness - General Chief Complaint: Shortness of Breath Stated Complaint: SOB - History of Present Illness Initial Comments: 09/23/19 21:00 78yo M w/ h/o elevated BNP and at home O2 p/w difficulty breathing at home. He was short of breath so he came to the ED. He had COVID in April. Denies recent illnesses, fever, n/v/d/cough, sore throat or rashes. Denies long car rides, travel, or leg pain, although he endorses b/l leg swelling. States he does not know why he is on home O2 but is a/o x4 09/26/19 12:13 09/26/19 12:16 Past History - Travel History Traveled outside of the country in the last 30 days: No Close contact w/someone who was outside of country & ill: No - Medical History Allergies/Adverse Reactions: Allergies Allergy/AdvReac Type Severity Reaction Status Date / Time No Known Allergies Allergy Verified 09/23/19 22:09 Home Medications: Ambulatory Orders Acetaminophen [Tylenol .Regular Strength -] 650 mg PO Q4H PRN tablet 09/13/19 Albuterol Sulfate Inhaler - [Ventolin HFA Inhaler -] 2 puff IH Q4H PRN inhaler 09/13/19 Ascorbic Acid [Vitamin C] 500 mg PO DAILY 09/21/19 Apixaban [Eliquis -] 5 mg PO BID #60 tablet 09/22/19 Atorvastatin Ca [Lipitor] 40 mg PO HS #30 tablet 09/22/19 Diltiazem Cd [Cardizem Cd -] 120 mg PO DAILY #30 cap.cd.24h 09/22/19 Furosemide [Lasix -] 20 mg PO DAILY #30 tablet 09/22/19 Metoprolol Succinate [Toprol Xl] 100 mg PO BID #60 tab.er.24h 09/22/19 Mirtazapine [Remeron -] 7.5 mg PO DAILY #30 tablet 09/22/19 Pantoprazole Sodium [Protonix -] 40 mg PO DAILY #30 tablet.ec 09/22/19 Anemia: No Asthma: No Cancer: No Cardiac Disorders: Yes (atrial flutter, angina, afib) CVA: No COPD: No CHF: Yes Dementia: No Diabetes: No GI Disorders: Yes (GI bleed) Disorders: No HTN: Yes Hypercholesterolemia: Yes Liver Disease: No Seizures: No Thyroid Disease: No - Surgical History Abdominal Surgery: Yes (inguinal and umbilical hernia repair) Appendectomy: No Cardiac Surgery: Yes (aortic valve repl, cabg, stents) Cholecystectomy: No Lung Surgery: No Neurologic Surgery: No Orthopedic Surgery: No - Immunization History Immunization Up to Date: No - Psycho-Social/Smoking History Smoking History: Former smoker Have you smoked in the past 12 months: No If you are a former smoker, when did you quit?: 40 years ago Information on smoking cessation initiated: No - Substance Abuse Hx (Audit-C & DAST Scrn) How often the patient has a drink containing alcohol: Never Score: In Men: 4 or > Positive; In Women: 3 or > Positive: 0 Screen Result (Pos requires Nsg. Audit-10AR): Negative In the last yr the pt used illegal drug/Rx for NonMed reason: No Score: Yes response is considered Positive: 0 Screen Result (Positive result requires Nsg. DAST-10): Negative Review of Systems - Review of Systems Is the patient limited [place] proficient: Yes Constitutional: No: Chills, Diaphoresis, Fever HEENTM: No: Blurred Vision, Nose Pain, Throat Pain Cardiac (ROS): Yes: Edema. No: Chest Pain, Irregular Heart Rate, Lightheadedness, Palpitations ABD/GI: No: Abdominal Distended, Nausea, Poor Appetite, Poor Fluid Intake, Vomiting : No: Flank Pain Musculoskeletal: No: Joint Pain, Muscle Weakness Integumentary: No: Dryness Neurological: No: Headache, Unsteady Gait Psychiatric: No: Anxiety Endocrine: No: Excessive Sweating *Physical Exam - Vital Signs Last Vital Signs Temp Pulse Resp BP Pulse Ox 97.7 F 100 H 28 H 95/54 L 100 09/23/19 18:27 09/23/19 19:44 09/23/19 19:44 09/23/19 19:44 09/23/19 19:44 - Physical Exam General Appearance: Yes: Nourished, Appropriately Dressed Neck: negative: Tender Respiratory/Chest: positive: Rhonchi. negative: Chest Tender, Lungs Clear, Labored Respiration, Crackles Cardiovascular: positive: Tachycardia, Systolic Murmur, Irregular. negative: Regular Rhythm Gastrointestinal/Abdominal: positive: Normal Bowel Sounds, Flat. negative: Tender Musculoskeletal: positive: Normal Inspection Extremity: positive: Normal Range of Motion, Pedal Edema, Swelling Integumentary: positive: Normal Color Neurologic: positive: Fully Oriented, Alert Heart Score/ECG Review - History History: Moderately suspicious - Electrocardiogram EKG: Non specific repolarization disturbance - Age Age: >/= 65 - Troponin Troponin: </= normal limit ED Treatment Course - LABORATORY CBC & Chemistry Diagram: 09/25/19 06:14 09/26/19 06:00 - ADDITIONAL ORDERS Additional order review: Laboratory Results 09/23/19 09/23/19 09/23/19 18:40 18:40 18:40 PT with INR 23.40 H INR 1.97 H Anticoagulation Therapy No Puncture Site No Result Required. Patient Temperature No Result Required. ABG pH 7.498 H ABG pCO2 23.40 L ABG pO2 389.3 H ABG HCO3 17.8 L ABG O2 Sat (Measured) 99.8 H ABG O2 Content No Result Required. ABG Base Excess -3.9 L Polo Test No Result Required. Patient On Oxygen No Result Required. O2 Delivery Device No Result Required. Oxygen Flow Rate No Result Required. Vent Mode No Result Required. Vent Rate No Result Required. Mechanical Rate No Result Required. PEEP No Result Required. Pressure Support Vent No Result Required. Sodium 138 Potassium 3.7 Chloride 107 Carbon Dioxide 21 Anion Gap 10 BUN 18.2 H Creatinine 1.2 Est GFR (CKD-EPI)AfAm 67.20 Est GFR (CKD-EPI)NonAf 57.98 Random Glucose 101 Calcium 8.0 L Total Bilirubin 1.1 H AST 44 H ALT 86 H Alkaline Phosphatase 88 Creatine Kinase 36 Troponin I 0.04 B-Natriuretic Peptide 4358.8 H Total Protein 8.1 Albumin 2.8 L 09/23/19 18:40 RBC 3.91 L MCV 92.8 MCHC 32.8 RDW 15.6 MPV 7.7 Neutrophils % 77.0 Lymphocytes % 17.6 Monocytes % 4.2 Eosinophils % 0.6 Basophils % 0.6 - Medications Given in the ED: ED Medications Discontinued Medications Generic Name Dose Route Start Last Admin Trade Name Freq PRN Reason Stop Dose Admin Furosemide 40 mg 09/23/19 19:39 09/23/19 19:44 Lasix Injection - IVPUSH 09/23/19 19:40 40 mg ONCE ONE Administration Medical Decision Making - Medical Decision Making 09/26/19 12:16 D-dimer was Positive -> CTA chest to r/o PE. -> CT scan of lungs showed diffuse b/l infiltrate w/ R pulmonary effusion. He has been tachycardic, from 130s down to 100s since presenting in ED. Will admit for CT findings and tachycardia. Discharge - Discharge Information Problems reviewed: Yes Clinical Impression/Diagnosis: Acute on chronic diastolic (congestive) heart failure, Acute respiratory failure with hypoxia Condition: Fair - Admission Yes - Follow up/Referral - Patient Discharge Instructions - Post Discharge Activity
--- NOTE | 2019-09-23 21:53 | PDOC ---
Attending Attestation - Resident Resident Name: Miguel Rossi - ED Attending Attestation I have performed the following: I have examined & evaluated the patient, The case was reviewed & discussed with the resident, I agree w/resident's findings & plan, Exceptions are as noted - HPI HPI: 09/30/19 19:45 See resident HPI - Physicial Exam PE: 09/30/19 19:45 Agree with documented exam - Medical Decision Making 09/30/19 19:45 Tachypneic, tachycardic, recently treated for active COVID19 overload, chf, pna, pe, vs covid19 sequelae f/u labs, ct pe, ekg dispo per clinical course Imaging characteristic of covid but with interval improvement since last imaging AFib rvr on ekg tx as acute on chronic chf, consider pna rate control admit 09/30/19 19:49 Discharge - Discharge Information Problems reviewed: Yes Clinical Impression/Diagnosis: Acute on chronic diastolic (congestive) heart failure, Acute respiratory failure with hypoxia Condition: Fair - Follow up/Referral - Patient Discharge Instructions - Post Discharge Activity
--- NOTE | 2019-09-24 00:08 | PDOC ---
*Physical Exam - Vital Signs Last Vital Signs Temp Pulse Resp BP Pulse Ox 97.7 F 94 H 32 H 112/67 95 09/23/19 18:27 09/23/19 23:36 09/23/19 23:36 09/23/19 22:10 09/23/19 23:36 ED Treatment Course - LABORATORY CBC & Chemistry Diagram: 09/23/19 18:40 09/23/19 18:40 - ADDITIONAL ORDERS Additional order review: Laboratory Results 09/23/19 09/23/19 09/23/19 23:10 18:40 18:40 PT with INR 23.40 H INR 1.97 H Anticoagulation Therapy Puncture Site Patient Temperature ABG pH ABG pCO2 ABG pO2 ABG HCO3 ABG O2 Sat (Measured) ABG O2 Content ABG Base Excess Polo Test Patient On Oxygen O2 Delivery Device Oxygen Flow Rate Vent Mode Vent Rate Mechanical Rate PEEP Pressure Support Vent Sodium 138 Potassium 3.7 Chloride 107 Carbon Dioxide 21 Anion Gap 10 BUN 18.2 H Creatinine 1.2 Est GFR (CKD-EPI)AfAm 67.20 Est GFR (CKD-EPI)NonAf 57.98 Random Glucose 101 Calcium 8.0 L Total Bilirubin 1.1 H AST 44 H ALT 86 H Alkaline Phosphatase 88 Creatine Kinase 31 36 Troponin I 0.03 0.04 B-Natriuretic Peptide 4358.8 H Total Protein 8.1 Albumin 2.8 L 09/23/19 18:40 PT with INR INR Anticoagulation Therapy No Puncture Site No Result Required. Patient Temperature No Result Required. ABG pH 7.498 H ABG pCO2 23.40 L ABG pO2 389.3 H ABG HCO3 17.8 L ABG O2 Sat (Measured) 99.8 H ABG O2 Content No Result Required. ABG Base Excess -3.9 L Polo Test No Result Required. Patient On Oxygen No Result Required. O2 Delivery Device No Result Required. Oxygen Flow Rate No Result Required. Vent Mode No Result Required. Vent Rate No Result Required. Mechanical Rate No Result Required. PEEP No Result Required. Pressure Support Vent No Result Required. Sodium Potassium Chloride Carbon Dioxide Anion Gap BUN Creatinine Est GFR (CKD-EPI)AfAm Est GFR (CKD-EPI)NonAf Random Glucose Calcium Total Bilirubin AST ALT Alkaline Phosphatase Creatine Kinase Troponin I B-Natriuretic Peptide Total Protein Albumin 09/23/19 18:40 RBC 3.91 L MCV 92.8 MCHC 32.8 RDW 15.6 MPV 7.7 Neutrophils % 77.0 Lymphocytes % 17.6 Monocytes % 4.2 Eosinophils % 0.6 Basophils % 0.6 - Medications Given in the ED: ED Medications Discontinued Medications Generic Name Dose Route Start Last Admin Trade Name Landon PRN Reason Stop Dose Admin Furosemide 40 mg 09/23/19 19:39 09/23/19 19:44 Lasix Injection - IVPUSH 09/23/19 19:40 40 mg ONCE ONE Administration Medical Decision Making - Medical Decision Making 09/23/19 23:59 78yo M hx COVID, CHF (on home O2), and Afib w/RVR (eliquis) presents from home with CHF exacerbation and COVID. NC@4lpm, tachycardic alternating between Afib w/RVR and sinus tach ~100s Lasix given. 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 Discharge - Discharge Information Problems reviewed: Yes Clinical Impression/Diagnosis: Acute on chronic diastolic (congestive) heart failure, Acute respiratory failure with hypoxia Condition: Fair - Admission Yes - Follow up/Referral - Patient Discharge Instructions - Post Discharge Activity
--- NOTE | 2019-09-24 01:17 | HP ---
Admitting History and Physical - Primary Care Physician PCP: Kg Mccain - Admission Chief Complaint: SOB History of Present Illness: This is a 78 y/o male with a significant medical history of Afib (on Eliquis), Angina, CHF, HTN, HLD, GI Bleed, recent admission 09/19-09/21 Suspected Covid, Afibrillation, ACS. Who presents to the ED with difficulty breathing. Patient reports having progressive SOB while using O2. Patient denies fever, chills, dizziness, SPEARS, CP , palpitations, AP, N/V/D, constipation, dysuria. Patient denies sick contacts or recent travel. History Source: Patient Limitations to Obtaining History: No Limitations - Past Medical History Cardiovascular: Yes: AFIB, HTN, Hyperlipdemia, Other (Angina) Gastrointestinal: Yes: GI Bleed, Other - Past Surgical History Past Surgical History: Yes: CABG, Hernia Repair (Inguinal, Umbilical), Stent, Valve Replacement - Smoking History Smoking history: Former smoker Have you smoked in the past 12 months: No If you are a former smoker, when did you quit?: 40 years ago - Alcohol/Substance Use Hx Alcohol Use: No History of Substance Use: reports: None - Social History Usual Living Arrangement: Yes: With Spouse ADL: Independent History of Recent Travel: No Home Medications - Allergies Allergies/Adverse Reactions: Allergies Allergy/AdvReac Type Severity Reaction Status Date / Time No Known Allergies Allergy Verified 09/23/19 22:09 - Home Medications Home Medications: Ambulatory Orders Acetaminophen [Tylenol .Regular Strength -] 650 mg PO Q4H PRN tablet 09/13/19 Albuterol Sulfate Inhaler - [Ventolin HFA Inhaler -] 2 puff IH Q4H PRN inhaler 09/13/19 Ascorbic Acid [Vitamin C] 500 mg PO DAILY 09/21/19 Apixaban [Eliquis -] 5 mg PO BID #60 tablet 09/22/19 Atorvastatin Ca [Lipitor] 40 mg PO HS #30 tablet 09/22/19 Diltiazem Cd [Cardizem Cd -] 120 mg PO DAILY #30 cap.cd.24h 09/22/19 Furosemide [Lasix -] 20 mg PO DAILY #30 tablet 09/22/19 Metoprolol Succinate [Toprol Xl] 100 mg PO BID #60 tab.er.24h 09/22/19 Mirtazapine [Remeron -] 7.5 mg PO DAILY #30 tablet 09/22/19 Pantoprazole Sodium [Protonix -] 40 mg PO DAILY #30 tablet.ec 09/22/19 Family Medical History Family History: Unable to Obtain Review of Systems - Review of Systems Constitutional: reports: No Symptoms Eyes: reports: No Symptoms HENT: reports: No Symptoms Neck: reports: No Symptoms Cardiovascular: reports: Shortness of Breath Respiratory: reports: SOB, SOB on Exertion Gastrointestinal: reports: No Symptoms Genitourinary: reports: No Symptoms Breasts: reports: No Symptoms Reported Musculoskeletal: reports: No Symptoms Integumentary: reports: No Symptoms Neurological: reports: No Symptoms Endocrine: reports: No Symptoms Hematology/Lymphatic: reports: No Symptoms Psychiatric: reports: No Symptoms Physical Examination Vital Signs: Vital Signs Temperature 97.7 F 09/23/19 18:27 Pulse Rate 94 H 09/23/19 23:36 Respiratory Rate 32 H 09/23/19 23:36 Blood Pressure 112/67 09/23/19 22:10 O2 Sat by Pulse Oximetry (%) 95 09/23/19 23:36 Constitutional: Yes: Anxious, Mild Distress, Thin Eyes: Yes: Conjunctiva Clear, EOM Intact, PERRL HENT: Yes: Atraumatic, Normocephalic Neck: Yes: Supple, Trachea Midline Cardiovascular: Yes: Tachycardia, S1, S2 Respiratory: Yes: Diminished (bases), On Nasal O2, Rhonchi, SOB on Exertion, Tachypnea Gastrointestinal: Yes: Normal Bowel Sounds, Soft. No: Tenderness, Tenderness, Epigastrium ...Rectal Exam: Yes: Deferred Renal/: Yes: WNL Breast(s): Yes: WNL Musculoskeletal: Yes: WNL Extremities: Yes: WNL Edema: No Peripheral Pulses WNL: Yes Integumentary: Yes: WNL Neurological: Yes: Alert, Oriented (x2), Cran Nerves II-XII Intact ...Motor Strength: WNL Psychiatric: Yes: Alert Labs: CBC, BMP 09/23/19 18:40 09/23/19 18:40 Imaging - Results Chest X-ray: Image Reviewed Cat Scan: Report Reviewed, Image Reviewed EKG: Image Reviewed Problem List - Problems (1) Acute on chronic diastolic (congestive) heart failure Code(s): I50.33 - ACUTE ON CHRONIC DIASTOLIC (CONGESTIVE) HEART FAILURE (2) Acute respiratory failure with hypoxia Code(s): J96.01 - ACUTE RESPIRATORY FAILURE WITH HYPOXIA (3) Atrial fibrillation Code(s): I48.91 - UNSPECIFIED ATRIAL FIBRILLATION (4) CAD (coronary artery disease) Code(s): I25.10 - ATHSCL HEART DISEASE OF [place] CORONARY ARTERY W/O ANG PCTRS Qualifiers: Coronary Disease-Associated Artery/Lesion type: [place] artery [place] vs. transplanted heart: [place] heart Associated angina: without angina Qualified Code(s): I25.10 - Atherosclerotic heart disease of [place] coronary artery without angina pectoris (5) GERD (gastroesophageal reflux disease) Code(s): K21.9 - GASTRO-ESOPHAGEAL REFLUX DISEASE WITHOUT ESOPHAGITIS (6) HTN (hypertension) Code(s): I10 - ESSENTIAL (PRIMARY) HYPERTENSION Qualifiers: Hypertension type: essential hypertension (7) Hypercholesterolemia Code(s): E78.00 - PURE HYPERCHOLESTEROLEMIA, UNSPECIFIED (8) Suspected COVID-19 virus infection Code(s): Z20.828 - CONTACT W AND EXPOSURE TO OTH VIRAL COMMUNICABLE DISEASES Assessment/Plan This is a 78 y/o male with a significant medical history of Afib (on Eliquis), Angina, CHF, HTN, HLD, GI Bleed, recent admission 09/19-09/21 Suspected Covid, Afib, ACS. Admitted to Telemetry for Acute on Chronic CHF Exacerbation, Acute Respiratory failure with Hypoxia, Suspected Covid 19-Infection for further evaluation of their emergent condition. Plan: Tele monitoring Chest Xray image- cardiomegaly, vasc congestion CTA- neg PE or aortic dissection. Stable 4cm aneurysm of ascending thoracic aorta. Improving bilateral groundglass and alveolar opacities and small effusions Covid PCR-pending Isolation Precautions Appreciate Cardiology consult Appreciate Pulmonary consult Monitor CBC, CMP, Mg, LDH, Ferritin, dDimer O2 Continue home meds Strict INOs Daily weight Zinc, MVI Albuterol MDI FEN- replete lytes prn, Low Na Diet DVT ppx- OOB, SCDs, Continue Eliquis Dispo: Requires Inpatient Care Visit type - Medication Review Med list reviewed for High Risk Meds patients 65 and older: Yes - Emergency Visit Emergency Visit: Yes ED Registration Date: 09/23/19 Care time: The patient presented to the Emergency Department on the above date and was hospitalized for further evaluation of their emergent condition. - New Patient This patient is new to me today: Yes Date on this admission: 09/24/19 - Critical Care Critical Care patient: No
[2019-09-24] MEDS ORDERED: APIXABAN 5 MG TABLET ONE (08:31)
[2019-09-24] MEDS ORDERED: ASCORBIC ACID 500 MG TABLET (FP) ONE (08:31)
[2019-09-24] MEDS ORDERED: PANTOPRAZOLE 40 MG TABLET ONE (08:31)
[2019-09-24] MEDS ORDERED: FUROSEMIDE 40 MG/4 ML INJECTABLE VIAL ONE (08:32)
[2019-09-24] MEDS ORDERED: ZINC SULFATE 220 MG CAPSULE (FP) ONE (08:32)
[2019-09-24] MEDS: FUROSEMIDE 40 MG/4 ML INJECTABLE VIAL IVPUSH SCH (09:09)
[2019-09-24] MEDS: APIXABAN 5 MG TABLET PO SCH ×2 (09:09→22:02)
[2019-09-24] MEDS: PANTOPRAZOLE 40 MG TABLET PO SCH (09:09)
[2019-09-24] MEDS: ZINC SULFATE 220 MG CAPSULE (FP) PO SCH ×2 (09:09→22:02)
[2019-09-24] MEDS: ASCORBIC ACID 500 MG TABLET (FP) PO SCH (09:10)
[2019-09-24 09:17] LABS: BASO % 0.2 % (0-2.0); EOS % 0.8 % (0-4.5); HEMATOCRIT 33.6 % (35.4-49); HEMOGLOBIN 10.9 GM/dL (11.7-16.9); LYMPH % 9.2 % (8-40); MCH 29.8 pg (25.7-33.7); MCHC 32.3 g/dl (32.0-35.9); MEAN PLT VOLUME 7.7 fl (7.5-11.1); MONO % 2.5 % (3.8-10.2); NEUT % 87.3 % (42.8-82.8); PLATELET COUNT 185 K/MM3 (134-434); RBC 3.65 M/mm3 (4.00-5.60); RDW 15.5 % (11.9-15.9); WHITE BLOOD COUNT 8.7 K/mm3 (4.0-10.0)
--- NOTE | 2019-09-24 09:39 | PN ---
Progress Note (short form) - Note Progress Note: This is a 78 y/o male with a significant medical history of Afib (on Eliquis), Angina, CHF, HTN, HLD, GI Bleed, recent admission 09/19-09/21 Suspected Covid, Afibrillation, stabalized and discharged. Who presents to the ED with difficulty breathing. Patient reports having progressive SOB while using O2. Patient denies fever, chills, dizziness, SPEARS, CP , palpitations, AP, N/V/D, constipation, dysuria. Patient denies sick contacts or recent travel. 09/23:I was called by home nurse yesterday that pt with tachycardia and SOB; Here febrile today; CT showed diffuse bilat pulmonary changes c/w Covid, slightly improved only ; new Covid test pending; elevated ferritin and CRP; normal trop; elevated BNP ECG: AFL with variable conduction, LVH with repolarization changes In bes, feels better; HR 130 bpm, fluctuating History Source: Patient Limitations to Obtaining History: No Limitations - Past Medical History Cardiovascular: Yes: AFIB, HTN, Hyperlipdemia, Other (Angina) Gastrointestinal: Yes: GI Bleed, Other - Past Surgical History Past Surgical History: Yes: CABG, Hernia Repair (Inguinal, Umbilical), Stent, AVR Bio,KEATON ligation - Smoking History Smoking history: Former smoker Have you smoked in the past 12 months: No If you are a former smoker, when did you quit?: 40 years ago - Alcohol/Substance Use Hx Alcohol Use: No History of Substance Use: reports: None - Social History Usual Living Arrangement: Yes: With Spouse ADL: Independent History of Recent Travel: No Home Medications - Allergies Allergies/Adverse Reactions: Allergies Allergy/AdvReac Type Severity Reaction Status Date / Time No Known Allergies Allergy Verified 09/23/19 22:09 - Home Medications Home Medications: Ambulatory Orders Acetaminophen [Tylenol .Regular Strength -] 650 mg PO Q4H PRN tablet 09/13/19 Albuterol Sulfate Inhaler - [Ventolin HFA Inhaler -] 2 puff IH Q4H PRN inhaler 09/13/19 Ascorbic Acid [Vitamin C] 500 mg PO DAILY 09/21/19 Apixaban [Eliquis -] 5 mg PO BID #60 tablet 09/22/19 Atorvastatin Ca [Lipitor] 40 mg PO HS #30 tablet 09/22/19 Diltiazem Cd [Cardizem Cd -] 120 mg PO DAILY #30 cap.cd.24h 09/22/19 Furosemide [Lasix -] 20 mg PO DAILY #30 tablet 09/22/19 Metoprolol Succinate [Toprol Xl] 100 mg PO BID #60 tab.er.24h 09/22/19 Mirtazapine [Remeron -] 7.5 mg PO DAILY #30 tablet 09/22/19 Pantoprazole Sodium [Protonix -] 40 mg PO DAILY #30 tablet.ec 09/22/19 Family Medical History Family History: Unable to Obtain Review of Systems Negative except above Physical Examination Vital Signs: Vital Signs Temperature 101.0 F H 09/24/19 07:09 Pulse Rate 136 H 09/24/19 09:07 Respiratory Rate 25 H 09/24/19 09:07 Blood Pressure 123/82 09/24/19 09:07 O2 Sat by Pulse Oximetry (%) 95 09/24/19 09:07 Constitutional: Yes: Anxious, Mild Distress, Thin Eyes: Yes: Conjunctiva Clear, E Cardiovascular: Yes: IRRR,, S1, S2, 1/6 SM base Respiratory: Yes: Diminished (bases), On Nasal O2, Rhonchi, SOB on Exertion, Tachypnea Gastrointestinal: Yes: Normal Bowel Sounds, Soft. No: Tenderness, Tenderness, Epigastrium Extremities: Yes: WNL Edema: No Peripheral Pulses WNL: Yes Integumentary: Yes: WNL Labs: CBC,CMP WBC 8.7 K/mm3 (4.0-10.0) 09/24/19 08:35 RBC 3.65 M/mm3 (4.00-5.60) L 09/24/19 08:35 Hgb 10.9 GM/dL (11.7-16.9) L 09/24/19 08:35 Hct 33.6 % (35.4-49) L 09/24/19 08:35 MCV 92.0 fl (80-96) 09/24/19 08:35 MCH 29.8 pg (25.7-33.7) 09/24/19 08:35 MCHC 32.3 g/dl (32.0-35.9) 09/24/19 08:35 RDW 15.5 % (11.9-15.9) 09/24/19 08:35 Plt Count 185 K/MM3 (134-434) 09/24/19 08:35 MPV 7.7 fl (7.5-11.1) 09/24/19 08:35 Absolute Neuts (auto) 7.6 K/mm3 (1.5-8.0) 09/24/19 08:35 Neutrophils % 87.3 % (42.8-82.8) H 09/24/19 08:35 Lymphocytes % 9.2 % (8-40) D 09/24/19 08:35 Monocytes % 2.5 % (3.8-10.2) L 09/24/19 08:35 Eosinophils % 0.8 % (0-4.5) 09/24/19 08:35 Basophils % 0.2 % (0-2.0) 09/24/19 08:35 Nucleated RBC % 0 % (0-0) 09/24/19 08:35 Sodium 138 mmol/L (136-145) 09/23/19 18:40 Potassium 3.7 mmol/L (3.5-5.1) 09/23/19 18:40 Chloride 107 mmol/L (98-107) 09/23/19 18:40 Carbon Dioxide 21 mmol/L (21-32) 09/23/19 18:40 Anion Gap 10 MMOL/L (8-16) 09/23/19 18:40 BUN 18.2 mg/dL (7-18) H 09/23/19 18:40 Creatinine 1.2 mg/dL (0.55-1.3) 09/23/19 18:40 Est GFR (CKD-EPI)AfAm 67.20 09/23/19 18:40 Est GFR (CKD-EPI)NonAf 57.98 09/23/19 18:40 Random Glucose 101 mg/dL (74-106) 09/23/19 18:40 Calcium 8.0 mg/dL (8.5-10.1) L 09/23/19 18:40 Total Bilirubin 1.1 mg/dL (0.2-1) H 09/23/19 18:40 AST 44 U/L (15-37) H 09/23/19 18:40 ALT 86 U/L (13-61) H 09/23/19 18:40 Alkaline Phosphatase 88 U/L (45-117) 09/23/19 18:40 Creatine Kinase 31 U/L (26-308) 09/23/19 23:10 Troponin I 0.03 ng/ml (0.00-0.05) 09/23/19 23:10 B-Natriuretic Peptide 4358.8 pg/ml (5-450) H 09/23/19 18:40 Total Protein 8.1 g/dl (6.4-8.2) 09/23/19 18:40 Albumin 2.8 g/dl (3.4-5.0) L 09/23/19 18:40 Active Medications Albuterol Sulfate (Ventolin Hfa Inhaler -) 2 puff IH Q4H PRN PRN Reason: SHORT OF BREATH/WHEEZING Apixaban (Eliquis -) 5 mg PO BID [facility] Last Admin: 09/24/19 09:09 Dose: 5 mg Documented by: Ascorbic Acid (Vitamin C -) 500 mg PO DAILY [facility] Last Admin: 09/24/19 09:10 Dose: 500 mg Documented by: Atorvastatin Calcium (Lipitor -) 40 mg PO [facility] Diltiazem HCl (Cardizem Cd -) 120 mg PO DAILY [facility] Last Admin: 09/24/19 09:09 Dose: 120 mg Documented by: Furosemide (Lasix Injection -) 20 mg IVPUSH DAILY [facility] Last Admin: 09/24/19 09:09 Dose: 20 mg Documented by: Metoprolol Succinate (Toprol Xl -) 100 mg PO BID [facility] Last Admin: 09/24/19 09:09 Dose: 100 mg Documented by: Pantoprazole Sodium (Protonix -) 40 mg PO DAILY [facility] Last Admin: 09/24/19 09:09 Dose: 40 mg Documented by: Zinc Sulfate (Orazinc -) 220 mg PO BID [facility] Last Admin: 09/24/19 09:09 Dose: 220 mg Documented by: Imaging - Results Chest X-ray: Report reviewed Cat Scan: Report Reviewed, EKG: Image Reviewed Problem List - Problems (1) Acute on chronic diastolic (congestive) heart failure Code(s): I50.33 - ACUTE ON CHRONIC DIASTOLIC (CONGESTIVE) HEART FAILURE (2) Acute respiratory failure with hypoxia Code(s): J96.01 - ACUTE RESPIRATORY FAILURE WITH HYPOXIA (3) Atrial fibrillation Code(s): I48.91 - UNSPECIFIED ATRIAL FIBRILLATION (4) CAD (coronary artery disease) Code(s): I25.10 - ATHSCL HEART DISEASE OF [place] CORONARY ARTERY W/O ANG PCTRS Qualifiers: Coronary Disease-Associated Artery/Lesion type: [place] artery [place] vs. transplanted heart: [place] heart Associated angina: without angina Qualified Code(s): I25.10 - Atherosclerotic heart disease of [place] coronary artery without angina pectoris (5) GERD (gastroesophageal reflux disease) Code(s): K21.9 - GASTRO-ESOPHAGEAL REFLUX DISEASE WITHOUT ESOPHAGITIS (6) HTN (hypertension) Code(s): I10 - ESSENTIAL (PRIMARY) HYPERTENSION Qualifiers: Hypertension type: essential hypertension (7) Hypercholesterolemia Code(s): E78.00 - PURE HYPERCHOLESTEROLEMIA, UNSPECIFIED (8) Suspected COVID-19 virus infection Code(s): Z20.828 - CONTACT W AND EXPOSURE TO OTH VIRAL COMMUNICABLE DISEASES Assessment/Plan This is a 78 y/o male with a significant medical history of Afib (on Eliquis), Angina, CHF, HTN, HLD, GI Bleed, recent admission 09/19-09/21 Suspected Covid, Afl, ACS. Admitted to Telemetry for Acute on Chronic CHF Exacerbation, Acute Respiratory failure with Hypoxia, Suspected Covid 19-Infection for further evaluation of their emergent condition. 1. Clinical presentation is consistent with chronic class I-II NYHA classification LV diastolic heart failure, no evidence of acute decompensation- chest x-ray findings related to patient's recent coronavirus/COVID 19 pneumonitis- elevated BNP level related to patient's chronic heart failure syndrome and persistence of atrial arrhythmia/atrial flutter; negative Trop 2. History of a recent acute hypoxic respiratory failure related to bronchopneumonia with probable sepsis syndrome, coronavirus/COVID 19 3. Persistent atrial flutter with periods rapid ventricular response- 4. CAD post CABG with negative Trop this time 5. Aortic valve stenosis post SAVR/bio-prosthesis- with [place] appendage ligation 6. Hypertensive cardiovascular disease 7. Hypercholesterolemia 8. History of altered mental status etiology of which was unclear- prior history of clinical depression 9. History of bacteremia- 10. Anemia PLAN: Pt febrile; pulmonary/fever management by primary team. AFl fluctuation due to underlying disorder, cont rate control+anticoag Cardiac: 1. Continue Toprol XL 100 bid with dose titration as needed hemodynamics permitting; use prn IV 5mg 2. Continue Cardizem CD 120 qd with dose titration as needed hemodynamics permitting 3. Continue Atorvastatin 40 qd 4. Continue Eliquis 5 bid 5. Continue Lasix 20 qd with monitoring of diuretic response, renal function and electrolytes 6. As outlined in the prior notes from recent hospitalization recommend early intervention for management of the above-noted recurrent/persistent atrial flutter- synchronized elective cardioversion- pending improvement of his respiratory status
[2019-09-24 09:48] LABS: ALBUMIN 2.4 g/dl (3.4-5.0); BILIRUBIN,TOTAL 1.5 mg/dL (0.2-1); BLOOD UREA NITROGEN 15.8 mg/dL (7-18); CALCIUM 8.1 mg/dL (8.5-10.1); CREATININE 1.1 mg/dL (0.55-1.3); MAGNESIUM 2.1 mg/dL (1.8-2.4); POTASSIUM 3.5 mmol/L (3.5-5.1); TOT PROT 7.2 g/dl (6.4-8.2)
[2019-09-24] MEDS ORDERED: ACETAMINOPHEN 325 MG TABLET (FP) ONE (09:56)
[2019-09-24] MEDS ORDERED: ACETAMINOPHEN 325 MG TABLET (FP) PO PRN (10:05)
--- NOTE | 2019-09-24 10:06 | PN ---
Progress Note, Physician History of Present Illness: pt seen/ examined in er chart reviewed awake mild sob + started on abx - Current Medication List Current Medications: Active Medications Acetaminophen (Tylenol -) 650 mg PO Q6H PRN PRN Reason: FEVER Albuterol Sulfate (Ventolin Hfa Inhaler -) 2 puff IH Q4H PRN PRN Reason: SHORT OF BREATH/WHEEZING Apixaban (Eliquis -) 5 mg PO BID [facility] Last Admin: 09/24/19 09:09 Dose: 5 mg Documented by: Ascorbic Acid (Vitamin C -) 500 mg PO DAILY [facility] Last Admin: 09/24/19 09:10 Dose: 500 mg Documented by: Atorvastatin Calcium (Lipitor -) 40 mg PO HS [facility] Diltiazem HCl (Cardizem Cd -) 120 mg PO DAILY [facility] Last Admin: 09/24/19 09:09 Dose: 120 mg Documented by: Furosemide (Lasix Injection -) 20 mg IVPUSH DAILY [facility] Last Admin: 09/24/19 09:09 Dose: 20 mg Documented by: Azithromycin 500 mg/ Dextrose 250 mls @ 250 mls/hr IVPB DAILY [facility] Metoprolol Succinate (Toprol Xl -) 100 mg PO BID [facility] Last Admin: 09/24/19 09:09 Dose: 100 mg Documented by: Pantoprazole Sodium (Protonix -) 40 mg PO DAILY [facility] Last Admin: 09/24/19 09:09 Dose: 40 mg Documented by: Zinc Sulfate (Orazinc -) 220 mg PO BID [facility] Last Admin: 09/24/19 09:09 Dose: 220 mg Documented by: - Objective Vital Signs: Vital Signs Temperature 101.0 F H 09/24/19 07:09 Pulse Rate 136 H 09/24/19 09:07 Respiratory Rate 25 H 09/24/19 09:07 Blood Pressure 123/82 09/24/19 09:07 O2 Sat by Pulse Oximetry (%) 95 09/24/19 09:07 Constitutional: Yes: Anxious Neck: Yes: Supple Cardiovascular: Yes: Pulse Irregular. No: Regular Rate and Rhythm Respiratory: Yes: Diminished Gastrointestinal: Yes: Soft Edema: No Neurological: Yes: Alert Psychiatric: Yes: Alert Labs: CBC, BMP 09/24/19 08:35 09/24/19 08:35 INR, PTT INR 1.97 (0.83-1.09) H 09/23/19 18:40 Problem List - Problems (1) Acute respiratory failure with hypoxia Code(s): J96.01 - ACUTE RESPIRATORY FAILURE WITH HYPOXIA (2) Atrial fibrillation Code(s): I48.91 - UNSPECIFIED ATRIAL FIBRILLATION (3) CAD (coronary artery disease) Code(s): I25.10 - ATHSCL HEART DISEASE OF [place] CORONARY ARTERY W/O ANG PCTRS Qualifiers: Coronary Disease-Associated Artery/Lesion type: [place] artery [place] vs. transplanted heart: [place] heart Associated angina: without angina Qualified Code(s): I25.10 - Atherosclerotic heart disease of [place] coronary artery without angina pectoris (4) History of depression Code(s): Z86.59 - PERSONAL HISTORY OF OTHER MENTAL AND BEHAVIORAL DISORDERS (5) S/P AVR (aortic valve replacement) Code(s): Z95.2 - PRESENCE OF PROSTHETIC HEART VALVE (6) Suspected 2019 novel coronavirus infection Code(s): Z20.828 - CONTACT W AND EXPOSURE TO OTH VIRAL COMMUNICABLE DISEASES Assessment/Plan d/w Rn continue present care consider steroids Abx Follow markers Ct chest - highly suspicious of covid. will follow
[2019-09-24] MEDS ORDERED: AZITHROMYCIN IVPB 500 MG/250 ML BAG IVPB SCH (10:15)
--- NOTE | 2019-09-24 11:04 | CON.PULM ---
Consult Consult Specialty:: PULMONARY Referred by:: Dr Mahoney Reason for Consultation:: shortness of breath - History of Present Illness Chief Complaint: shortness of breath History of Present Illness: 78yo male with h/o HTN, hyperlipidemia, atrial fibrillation, LV diastolic dysfunction, recent admissions for hypoxia and suspected COVID19 infections discharged on home O2 who returns with worsening shortness of breath. States he was using his home O2 but without relief. No fevers, chills or sweats. No cough or chest discomfort. CT chest showing bilateral ground glass opacities with small right effusion suspcious for COVID19. - History Source History Provided By: Patient, Medical Record Limitations to Obtaining History: No Limitations - Past Medical History Cardio/Vascular: Yes: AFIB, HTN, Hyperlipdemia, Other (Angina) Gastrointestinal: Yes: GI Bleed, Other - Past Surgical History Past Surgical History: Yes: CABG, Hernia Repair (Inguinal, Umbilical), Stent, Valve Replacement - Alcohol/Substance Use Hx Alcohol Use: No History of Substance Use: reports: None - Smoking History Smoking history: Former smoker Have you smoked in the past 12 months: No If you are a former smoker, when did you quit?: 40 years ago - Social History Usual Living Arrangement: With Spouse ADL: Independent History of Recent Travel: No Home Medications - Allergies Allergies/Adverse Reactions: Allergies Allergy/AdvReac Type Severity Reaction Status Date / Time No Known Allergies Allergy Verified 09/23/19 22:09 - Home Medications Home Medications: Ambulatory Orders Acetaminophen [Tylenol .Regular Strength -] 650 mg PO Q4H PRN tablet 09/13/19 Albuterol Sulfate Inhaler - [Ventolin HFA Inhaler -] 2 puff IH Q4H PRN inhaler 09/13/19 Ascorbic Acid [Vitamin C] 500 mg PO DAILY 09/21/19 Apixaban [Eliquis -] 5 mg PO BID #60 tablet 09/22/19 Atorvastatin Ca [Lipitor] 40 mg PO HS #30 tablet 09/22/19 Diltiazem Cd [Cardizem Cd -] 120 mg PO DAILY #30 cap.cd.24h 09/22/19 Furosemide [Lasix -] 20 mg PO DAILY #30 tablet 09/22/19 Metoprolol Succinate [Toprol Xl] 100 mg PO BID #60 tab.er.24h 09/22/19 Mirtazapine [Remeron -] 7.5 mg PO DAILY #30 tablet 09/22/19 Pantoprazole Sodium [Protonix -] 40 mg PO DAILY #30 tablet.ec 09/22/19 Review of Systems - Review of Systems Constitutional: reports: Weakness. denies: Chills, Fever Eyes: denies: Recent Change in Vision HENT: denies: Nasal Congestion, Throat Pain Neck: denies: Stiffness, Tenderness Cardiovascular: reports: Shortness of Breath. denies: Chest Pain Respiratory: reports: SOB on Exertion. denies: Cough, Wheezing Gastrointestinal: denies: Abdominal Pain, Nausea, Vomiting Genitourinary: denies: Dysuria, Hematuria Neurological: denies: Dizziness, Headache Endocrine: denies: Unexplained Weight Loss Physical Exam Vital Sings: Vital Signs Temperature 101.0 F H 09/24/19 07:09 Pulse Rate 136 H 09/24/19 09:07 Respiratory Rate 25 H 09/24/19 09:07 Blood Pressure 123/82 09/24/19 09:07 O2 Sat by Pulse Oximetry (%) 95 09/24/19 09:07 Constitutional: Yes: Calm Eyes: Yes: Conjunctiva Clear, EOM Intact HENT: Yes: Atraumatic, Normocephalic, Tonsillar Exudate Neck: Yes: Trachea Midline Cardiovascular: Yes: Regular Rate and Rhythm Respiratory: Yes: Diminished (decreased breath sounds at the bases) ...Clubbing: No Gastrointestinal: Yes: Normal Bowel Sounds, Soft. No: Tenderness Edema: No Neurological: Yes: Alert, Oriented Labs: CBC, BMP 09/24/19 08:35 09/24/19 08:35 ABG Results ABG pH 7.498 (7.350-7.450) H 09/23/19 18:40 ABG HCO3 17.8 mmol/L (22-27) L 09/23/19 18:40 ABG O2 Sat (Measured) 99.8 mmHg (95-98) H 09/23/19 18:40 ABG O2 Content No Result Required. 09/23/19 18:40 ABG Base Excess -3.9 mmol/L (-2-2) L 09/23/19 18:40 Imaging - Results Cat Scan: Report Reviewed, Image Reviewed (bilateral ground glass opacities, small right effusion) Assessment/Plan Acute Hypoxic Respiratory Failure Suspect COVID19 Pneumonitis LV Diastolic Dysfunction Atrial Fibrillation HTN Hyperlipidemia - start medrol - O2 to keep SpO2 >90% - send COVID19 Ab - f/u serology - trend inflammatory markers - rate control - continue anticoagulation Thank you for this consult Marvin Cortez MD
[2019-09-24 11:07] LABS: PH,URINE 6.5 (5.0-8.0); URINE APPEARANCE Error; URINE BILIRUBIN NEGATIVE (NEGATIVE); URINE COLOR YELLOW; URINE GLUCOSE (UA) NEGATIVE (NEGATIVE); URINE KETONE NEGATIVE (NEGATIVE); URINE LEUK ESTERASE NEGATIVE (NEGATIVE); URINE NITRITE NEGATIVE (NEGATIVE); URINE PROTEIN NEGATIVE (NEGATIVE); URINE UROBILINOGEN 0.2 mg/dL (0.2-1.0)
[2019-09-24] MEDS ORDERED: methylPREDNISolone NA SUCC 40 MG/1 ML VIAL IVPUSH ONE (11:11)
--- NOTE | 2019-09-24 12:49 | EKG ---
Test Reason : Blood Pressure : / mmHG Vent. Rate : 106 BPM Atrial Rate : 127 BPM P-R Int : 000 ms QRS Dur : 092 ms QT Int : 370 ms P-R-T Axes : 000 -05 178 degrees QTc Int : 491 ms ATRIAL FIBRILLATION WITH RAPID VENTRICULAR RESPONSE VOLTAGE CRITERIA FOR LEFT VENTRICULAR HYPERTROPHY MARKED ST ABNORMALITY, POSSIBLE INFEROLATERAL SUBENDOCARDIAL INJURY ABNORMAL ECG Confirmed by TRUDY YOUNG MD ([id number]) on 09/24/2019 12:49:14 PM Referred By: Confirmed By:TRUDY YOUNG MD
--- NOTE | 2019-09-24 12:54 | EKG ---
Test Reason : Blood Pressure : / mmHG Vent. Rate : 135 BPM Atrial Rate : 135 BPM P-R Int : 090 ms QRS Dur : 088 ms QT Int : 322 ms P-R-T Axes : 074 020 208 degrees QTc Int : 483 ms Probable Atrial flutter LEFT VENTRICULAR HYPERTROPHY WITH REPOLARIZATION ABNORMALITY NONSPECIFIC ST AND T WAVE ABNORMALITY ABNORMAL ECG Confirmed by TRUDY YOUNG MD ([id number]) on 09/24/2019 12:53:52 PM Referred By: Confirmed By:TRUDY YOUNG MD
[2019-09-24] MEDS ORDERED: AZITHROMYCIN IVPB 500 MG/250 ML BAG IVPB ONE (13:36)
[2019-09-24] MEDS ORDERED: methylPREDNISolone NA SUCC 40 MG/1 ML VIAL ONE (13:36)
--- NOTE | 2019-09-24 15:04 | PN ---
Progress Note (short form) - Note Progress Note: ID CONSULT DICTATED BILATERAL PNEUMONITIS ? HEALTHCARE ACQUIRED ? COVID CHF S/P TAVR RAPID AFIB AWAIT C/S REPEAT COVID TESTING EMPIRIC ZOSYN/ VANCOMYCIN WOULD CONSIDER TREATMENT WITH REMDESIVIR EVEN IF COVID(-)
--- NOTE | 2019-09-24 15:44 | CONS ---
DATE OF CONSULTATION: DATE OF DICTATION: 09/24/2019 HISTORY OF PRESENT ILLNESS: The patient is a 78-year-old male who is evaluated for bilateral pneumonia. He was admitted to the hospital on September 23, 2019, with worsening shortness of breath. In the emergency room, he was noted to be in rapid atrial fibrillation. A CAT scan of the chest was performed and was negative for pulmonary embolism; however, showed bilateral [id number] infiltrates as well as mediastinal adenopathy. He suffers from mental illness. He is unable to offer any reliable history at the present time. He is awake and responsive. He appears slightly short of breath at rest on nasal cannula O2. Patient has had 2 recent hospital admissions, one of which was from August 31 through September 12. At that time, he was admitted with fever and worsening shortness of breath with a nonproductive cough. Two COVID-19 swabs were performed and were negative. He was treated for suspected bacterial pneumonia with improvement. His hospital course at that time was notable for a positive blood culture for staph, which was identified as a coagulase-negative staph. The patient is status post bioprosthetic aortic valve placement. He was discharged to a shelter facility for rehabilitation; however, he was readmitted from September 19 to September 21 with shortness of breath. PAST MEDICAL HISTORY: Positive for coronary artery disease, atrial fibrillation, hypertension, aortic aneurysm, hyperlipidemia, congestive heart failure. PAST SURGICAL HISTORY: Status post TAVR, left atrial appendage ligation, inguinal and umbilical hernia repairs, and coronary artery bypass. ALLERGIES: No known allergies. MEDICATIONS: Include Zithromax, albuterol, Eliquis, Lipitor, Cardizem, Toprol, Tylenol, Lasix, Protonix, Solu-Medrol. SOCIAL HISTORY: Patient was living in the community with his significant other. Recent placement in a shelter facility for rehabilitation. He is a former smoker. No history of alcohol abuse. REVIEW OF SYSTEMS: Neurologic: Positive for mental illness. No loss of consciousness, seizure activity, or focal weakness. Cardiac: As per HPI. Respiratory: As per HPI. Gastrointestinal: Negative for vomiting or diarrhea. Genitourinary: Negative for urinary tract infection. LABORATORY DATA: White count 8.7, 87 neutrophils, 9 lymphocytes, 2 monocytes. Hematocrit 33.6, platelets 185. Creatinine 1.1, total bilirubin 1.5, alkaline phosphatase 71, AST 31. Ferritin 744. D-dimer 772, LDH 434. C-reactive protein 15.4. CAT scan of the chest: [id number] infiltrates bilaterally with mediastinal adenopathy. PHYSICAL EXAMINATION: General: He is awake and responsive. He is slightly short of breath at rest on nasal cannula O2. Vital Signs: Temperature 98.3, T-max 101. Blood pressure 101/56. Pulse 95, regular. Respirations 30 per minute. HEENT: Sclerae are anicteric. Cardiovascular: Heart sounds S1, S2, with a 2/6 pansystolic murmur. Lungs: Bronchial breath sounds bilaterally with scattered rhonchi. No rales or wheezing. Abdomen: Soft and nontender. Extremities: Edema 1+. IMPRESSION: 1. Bilateral pneumonitis, unclear etiology. Rule out healthcare-acquired pneumonia, rule out COVID-19 pneumonitis. 2. Congestive heart failure. 3. Rapid atrial fibrillation. 4. Status post transcatheter aortic valve replacement. Await cultures. Repeat COVID testing. Empiric antibiotic coverage for healthcare-associated pulmonary pathogens with vancomycin and Zosyn pending cultures. Would consider empirically treating for COVID with remdesivir even if PCR negative in light of clinical presentation, fever, hypoxemia, CAT scan findings, and elevated inflammatory markers. Thank you for the kind referral. TRUDY MACKENZIE M.D. [id number]
[2019-09-24] MEDS ORDERED: DEXTROSE 5%-WATER - 50 ML IVPB ONE (17:02)
[2019-09-24] MEDS ORDERED: PIPERACILLIN/TAZOBACTAM 3.375 GM VIAL IVPB ONE (17:02)
[2019-09-24] MEDS: PIPERACILLIN/TAZOB 3.375 GM 3.375 GM in DEXTROSE 5%-WATER - 50 ML IVPB SCH ×2 (17:10→18:38)
[2019-09-24] MEDS: VANCOMYCIN 1 GRAM (PRE-DOCKED) 1,000 MG/250 ML BAG IVPB SCH (18:26)
[2019-09-24] MEDS: methylPREDNISolone NA SUCC 40 MG/1 ML VIAL IVPUSH SCH (22:01)
[2019-09-24] MEDS: ATORVASTATIN CA 40 MG TABLET (FP) PO SCH (22:02)
[2019-09-25] MEDS ORDERED: PIPERACILLIN/TAZOBACTAM 3.375 GM VIAL IVPB ONE ×3 (01:09→17:06)
[2019-09-25] MEDS ORDERED: DEXTROSE 5%-WATER - 50 ML IVPB ONE ×3 (01:10→17:06)
[2019-09-25] MEDS: PIPERACILLIN/TAZOB 3.375 GM 3.375 GM in DEXTROSE 5%-WATER - 50 ML IVPB SCH ×3 (01:56→18:11)
[2019-09-25] MEDS: VANCOMYCIN 1 GRAM (PRE-DOCKED) 1,000 MG/250 ML BAG IVPB SCH (04:05)
[2019-09-25 07:18] LABS: BASO % 0.1 % (0-2.0); HEMATOCRIT 28.5 % (35.4-49); HEMOGLOBIN 9.3 GM/dL (11.7-16.9); LYMPH % 7.3 % (8-40); MCH 29.5 pg (25.7-33.7); MCHC 32.5 g/dl (32.0-35.9); MEAN CELL VOLUME 90.7 fl (80-96); MEAN PLT VOLUME 7.7 fl (7.5-11.1); MONO % 1.3 % (3.8-10.2); NEUT % 91.3 % (42.8-82.8); PLATELET COUNT 187 K/MM3 (134-434); RBC 3.15 M/mm3 (4.00-5.60); RDW 15.3 % (11.9-15.9); WHITE BLOOD COUNT 8.3 K/mm3 (4.0-10.0)
--- NOTE | 2019-09-25 07:38 | PN ---
Progress Note, Physician History of Present Illness: pulmonary alert,feeling better,sob improving,-cp - Current Medication List Current Medications: Active Medications Acetaminophen (Tylenol -) 650 mg PO Q6H PRN PRN Reason: FEVER Last Admin: 09/24/19 11:15 Dose: 650 mg Documented by: Albuterol Sulfate (Ventolin Hfa Inhaler -) 2 puff IH Q4H PRN PRN Reason: SHORT OF BREATH/WHEEZING Apixaban (Eliquis -) 5 mg PO BID [facility] Last Admin: 09/24/19 22:02 Dose: 5 mg Documented by: Ascorbic Acid (Vitamin C -) 500 mg PO DAILY [facility] Last Admin: 09/24/19 09:10 Dose: 500 mg Documented by: Atorvastatin Calcium (Lipitor -) 40 mg PO HS [facility] Last Admin: 09/24/19 22:02 Dose: 40 mg Documented by: Diltiazem HCl (Cardizem Cd -) 120 mg PO DAILY [facility] Last Admin: 09/24/19 09:09 Dose: 120 mg Documented by: Furosemide (Lasix Injection -) 20 mg IVPUSH DAILY [facility] Last Admin: 09/24/19 09:09 Dose: 20 mg Documented by: Vancomycin HCl (Vancomycin (Pre-Docked)) 1,000 mg in 250 mls @ 166.667 mls/hr IVPB Q12H [facility]; Protocol Last Admin: 09/25/19 04:05 Dose: 166.667 mls/hr Documented by: Piperacillin Sod/Tazobactam (Sod 3.375 gm/ Dextrose) 50 mls @ 100 mls/hr IVPB Q8H-IV [facility]; Protocol Last Admin: 09/25/19 01:56 Dose: 100 mls/hr Documented by: Methylprednisolone Sodium Succinate (Solu-Medrol -) 40 mg IVPUSH BID [facility] Last Admin: 09/24/19 22:01 Dose: 40 mg Documented by: Metoprolol Succinate (Toprol Xl -) 100 mg PO BID [facility] Last Admin: 09/24/19 22:01 Dose: Not Given Documented by: Pantoprazole Sodium (Protonix -) 40 mg PO DAILY [facility] Last Admin: 09/24/19 09:09 Dose: 40 mg Documented by: Pneumococcal 13-Valent Conj Vacc (Prevnar 13 Syringe -) 0.5 ml IM .ONCE ONE Stop: 09/24/19 17:50 Zinc Sulfate (Orazinc -) 220 mg PO BID [facility] Last Admin: 09/24/19 22:02 Dose: 220 mg Documented by: - Objective Vital Signs: Vital Signs Temperature 99 F 09/25/19 06:00 Pulse Rate 90 09/25/19 06:00 Respiratory Rate 18 09/25/19 06:00 Blood Pressure 110/70 09/25/19 06:00 O2 Sat by Pulse Oximetry (%) 95 09/25/19 06:00 Constitutional: Yes: Calm, Thin Eyes: Yes: WNL HENT: Yes: WNL Neck: Yes: WNL Cardiovascular: Yes: Pulse Irregular, S1, S2 Respiratory: Yes: Rales (few scatted crackles) Gastrointestinal: Yes: Normal Bowel Sounds, Soft Extremities: Yes: WNL Edema: No Labs: INR, PTT Laboratory Tests 09/25/19 09/25/19 09/25/19 06:14 06:14 06:14 D-Dimer 541 H Ferritin 805.7 H LD Total 366 H C-Reactive Protein 15.0 H Assessment/Plan Assessment/Plan Acute Hypoxic Respiratory Failure Suspect COVID19 Pneumonitis LV Diastolic Dysfunction Atrial Fibrillation HTN Hyperlipidemia - medrol - O2 to keep SpO2 >90% - send COVID19 Ab - f/u serology - trend inflammatory markers - rate control - anticoagulation - COVID PCR pending DR DAVIS
[2019-09-25 07:40] LABS: ALBUMIN 1.9 g/dl (3.4-5.0); BILIRUBIN,TOTAL 0.9 mg/dL (0.2-1); CALCIUM 7.5 mg/dL (8.5-10.1); CREATININE 1.1 mg/dL (0.55-1.3); MAGNESIUM 2.3 mg/dL (1.8-2.4); PHOSPHOROUS 3.1 mg/dL (2.5-4.9); POTASSIUM 3.1 mmol/L (3.5-5.1); TOT PROT 6.1 g/dl (6.4-8.2)
[2019-09-25] MEDS: methylPREDNISolone NA SUCC 40 MG/1 ML VIAL IVPUSH SCH ×2 (09:15→21:29)
[2019-09-25] MEDS: FUROSEMIDE 40 MG/4 ML INJECTABLE VIAL IVPUSH SCH (09:16)
[2019-09-25] MEDS: ASCORBIC ACID 500 MG TABLET (FP) PO SCH (09:18)
[2019-09-25] MEDS: ZINC SULFATE 220 MG CAPSULE (FP) PO SCH ×2 (09:18→21:29)
[2019-09-25] MEDS: APIXABAN 5 MG TABLET PO SCH ×2 (09:18→21:29)
[2019-09-25] MEDS: PANTOPRAZOLE 40 MG TABLET PO SCH (09:18)
[2019-09-25 09:30] LABS: ANISOCYTOSIS 1+; MACROCYTOSIS 1+; OVALOCYTE 1+; PLATELET ESTIMATE NORMAL
[2019-09-25] MEDS ORDERED: POTASSIUM CHLORIDE TABS 20 MEQ TABLET.ER (FP) PO ONE (13:03)
--- NOTE | 2019-09-25 13:03 | PN ---
Progress Note (short form) - Note Progress Note: pt examined today appears comfortable denies SOB Vital Signs - 24 hr 09/24/19 09/25/19 09/25/19 21:00 02:00 06:00 Temperature 97.5 F L 97.9 F 99 F Pulse Rate 75 86 90 Respiratory 18 18 18 Rate Blood Pressure 103/52 L 99/49 L 110/70 O2 Sat by Pulse 95 99 95 Oximetry (%) 09/25/19 09/25/19 09/25/19 09:00 09:14 14:21 Temperature 98.2 F 97.4 F L Pulse Rate 124 H 130 H Respiratory 19 20 Rate Blood Pressure 119/54 L 98/61 O2 Sat by Pulse 95 95 98 Oximetry (%) 09/25/19 18:00 Temperature 97.9 F Pulse Rate 80 Respiratory 19 Rate Blood Pressure 98/50 L O2 Sat by Pulse 100 Oximetry (%) Current Medications Generic Name Dose Route Start Last Admin Trade Name Freq PRN Reason Stop Dose Admin Acetaminophen 650 mg 09/24/19 10:05 09/24/19 11:15 Tylenol - PO 650 mg Q6H PRN Administration FEVER Albuterol Sulfate 2 puff 09/24/19 01:07 Ventolin Hfa Inhaler - IH Q4H PRN SHORT OF BREATH/WHEEZING Apixaban 5 mg 09/24/19 10:00 09/25/19 09:18 Eliquis - PO 5 mg BID [facility] Administration Ascorbic Acid 500 mg 09/24/19 10:00 09/25/19 09:18 Vitamin C - PO 500 mg DAILY [facility] Administration Atorvastatin Calcium 40 mg 09/24/19 22:00 09/24/19 22:02 Lipitor - PO 40 mg HS [facility] Administration Diltiazem HCl 120 mg 09/24/19 10:00 09/25/19 09:18 Cardizem Cd - PO 120 mg DAILY [facility] Administration Furosemide 20 mg 09/24/19 10:00 09/25/19 09:16 Lasix Injection - IVPUSH 20 mg DAILY [facility] Administration Piperacillin Sod/Tazobactam 50 mls @ 100 mls/hr 09/24/19 15:15 09/25/19 18:11 Sod 3.375 gm/ Dextrose IVPB 100 mls/hr Q8H-IV [facility] Administration Protocol Vancomycin HCl 1,000 mg/ 250 mls @ 166.667 mls/hr 09/26/19 10:00 Dextrose IVPB Q24H [facility] Protocol Methylprednisolone Sodium Succinate 40 mg 09/24/19 22:00 09/25/19 09:15 Solu-Medrol - IVPUSH 40 mg BID [facility] Administration Metoprolol Succinate 100 mg 09/24/19 10:00 09/25/19 09:18 Toprol Xl - PO 100 mg BID [facility] Administration Pantoprazole Sodium 40 mg 09/24/19 10:00 09/25/19 09:18 Protonix - PO 40 mg DAILY [facility] Administration Pneumococcal 13-Valent Conj Vacc 0.5 ml 09/25/19 20:00 Prevnar 13 Syringe - IM 09/25/19 20:01 .ONCE ONE Zinc Sulfate 220 mg 09/24/19 10:00 09/25/19 09:18 Orazinc - PO 220 mg BID [facility] Administration Laboratory Results - last 24 hr 09/23/19 09/25/19 09/25/19 20:00 06:14 06:14 WBC 8.3 RBC 3.15 L Hgb 9.3 L Hct 28.5 L D MCV 90.7 MCH 29.5 MCHC 32.5 RDW 15.3 Plt Count 187 MPV 7.7 Absolute Neuts (auto) 7.6 Neutrophils % 91.3 H Neutrophils % (Manual) 86.0 H Band Neutrophils % 2.0 Lymphocytes % 7.3 L D Lymphocytes % (Manual) 10.0 D Monocytes % 1.3 L Monocytes % (Manual) 2 L D Eosinophils % 0.0 D Eosinophils % (Manual) 0.0 D Basophils % 0.1 Basophils % (Manual) 0.0 Myelocytes % (Man) 0 Promyelocytes % (Man) 0 Blast Cells % (Manual) 0 Nucleated RBC % 0 Metamyelocytes 0 Hypochromia 0 Platelet Estimate Normal Polychromasia 0 Poikilocytosis 1+ Anisocytosis 1+ Microcytosis 0 Macrocytosis 1+ Ovalocytes 1+ Fragmented RBCs 1+ D-Dimer Sodium Potassium Chloride Carbon Dioxide Anion Gap BUN Creatinine Est GFR (CKD-EPI)AfAm Est GFR (CKD-EPI)NonAf Random Glucose Calcium Phosphorus Magnesium Ferritin Total Bilirubin AST ALT Alkaline Phosphatase LD Total C-Reactive Protein Total Protein Albumin COVID-19 ([facility]) Not detected SARS-CoV-2 Ab Interp Non-reactive 09/25/19 09/25/19 09/25/19 06:14 06:14 06:14 WBC RBC Hgb Hct MCV MCH MCHC RDW Plt Count MPV Absolute Neuts (auto) Neutrophils % Neutrophils % (Manual) Band Neutrophils % Lymphocytes % Lymphocytes % (Manual) Monocytes % Monocytes % (Manual) Eosinophils % Eosinophils % (Manual) Basophils % Basophils % (Manual) Myelocytes % (Man) Promyelocytes % (Man) Blast Cells % (Manual) Nucleated RBC % Metamyelocytes Hypochromia Platelet Estimate Polychromasia Poikilocytosis Anisocytosis Microcytosis Macrocytosis Ovalocytes Fragmented RBCs D-Dimer 541 H Sodium 138 Potassium 3.1 L Chloride 107 Carbon Dioxide 20 L Anion Gap 11 BUN 24.0 H Creatinine 1.1 Est GFR (CKD-EPI)AfAm 74.65 Est GFR (CKD-EPI)NonAf 64.41 Random Glucose 184 H Calcium 7.5 L Phosphorus 3.1 Magnesium 2.3 Ferritin 805.7 H Total Bilirubin 0.9 AST 23 ALT 51 Alkaline Phosphatase 60 LD Total 366 H C-Reactive Protein 15.0 H Total Protein 6.1 L Albumin 1.9 L COVID-19 ([facility]) SARS-CoV-2 Ab Interp S1 S2 Irregular Lungs decreased breath sounds Abd- soft, NT No edema A/P Fever, pneumonitis CHF decompensation Aflutter -- COVID negative -- iv lasix -- on steroids -- O2 -- pt remains afebrile -- he did not have positive COVID serologies during his previous admissions here -- check inflammatory markers -- replace potassium Problem List - Problems (1) Acute on chronic diastolic (congestive) heart failure Code(s): I50.33 - ACUTE ON CHRONIC DIASTOLIC (CONGESTIVE) HEART FAILURE (2) Acute respiratory failure with hypoxia Code(s): J96.01 - ACUTE RESPIRATORY FAILURE WITH HYPOXIA (3) Atrial fibrillation Code(s): I48.91 - UNSPECIFIED ATRIAL FIBRILLATION (4) GERD (gastroesophageal reflux disease) Code(s): K21.9 - GASTRO-ESOPHAGEAL REFLUX DISEASE WITHOUT ESOPHAGITIS (5) HTN (hypertension) Code(s): I10 - ESSENTIAL (PRIMARY) HYPERTENSION Qualifiers: Hypertension type: essential hypertension (6) Suspected 2019 novel coronavirus infection Code(s): Z20.828 - CONTACT W AND EXPOSURE TO [facility] VIRAL COMMUNICABLE DISEASES
--- NOTE | 2019-09-25 13:56 | PN ---
Progress Note, Physician Chief Complaint: Pt A&Ox3; Denies chest pain, dyspnea, or palpitations. Anxious; does not want to go home "until the doctors say I'm OK". History of Present Illness: [facility] 78 [facility] PMHx Afib (on Eliquis), Angina, bioprosthetic Aortic valve, diastolic CHF, HTN, HLD, GI Bleed, recent admission 09/19-09/21 Suspected Covid, Afibrillation, ACS. Who presents to the ED with difficulty breathing. Patient reports having progressive SOB while using O2. Patient denies fever, chills, dizziness, SPEARS, CP , palpitations, AP, N/V/D, constipation, dysuria. P - Current Medication List Current Medications: Active Medications Acetaminophen (Tylenol -) 650 mg PO Q6H PRN PRN Reason: FEVER Last Admin: 09/24/19 11:15 Dose: 650 mg Documented by: Albuterol Sulfate (Ventolin Hfa Inhaler -) 2 puff IH Q4H PRN PRN Reason: SHORT OF BREATH/WHEEZING Apixaban (Eliquis -) 5 mg PO BID [facility] Last Admin: 09/25/19 09:18 Dose: 5 mg Documented by: Ascorbic Acid (Vitamin C -) 500 mg PO DAILY [facility] Last Admin: 09/25/19 09:18 Dose: 500 mg Documented by: Atorvastatin Calcium (Lipitor -) 40 mg PO HS [facility] Last Admin: 09/24/19 22:02 Dose: 40 mg Documented by: Diltiazem HCl (Cardizem Cd -) 120 mg PO DAILY [facility] Last Admin: 09/25/19 09:18 Dose: 120 mg Documented by: Furosemide (Lasix Injection -) 20 mg IVPUSH DAILY [facility] Last Admin: 09/25/19 09:16 Dose: 20 mg Documented by: Vancomycin HCl (Vancomycin (Pre-Docked)) 1,000 mg in 250 mls @ 166.667 mls/hr IVPB Q12H [facility]; Protocol Last Admin: 09/25/19 04:05 Dose: 166.667 mls/hr Documented by: Piperacillin Sod/Tazobactam (Sod 3.375 gm/ Dextrose) 50 mls @ 100 mls/hr IVPB Q8H-IV [facility]; Protocol Last Admin: 09/25/19 09:15 Dose: 100 mls/hr Documented by: Methylprednisolone Sodium Succinate (Solu-Medrol -) 40 mg IVPUSH BID [facility] Last Admin: 09/25/19 09:15 Dose: 40 mg Documented by: Metoprolol Succinate (Toprol Xl -) 100 mg PO BID [facility] Last Admin: 09/25/19 09:18 Dose: 100 mg Documented by: Pantoprazole Sodium (Protonix -) 40 mg PO DAILY [facility] Last Admin: 09/25/19 09:18 Dose: 40 mg Documented by: Pneumococcal 13-Valent Conj Vacc (Prevnar 13 Syringe -) 0.5 ml IM .ONCE ONE Stop: 09/24/19 17:50 Zinc Sulfate (Orazinc -) 220 mg PO BID [facility] Last Admin: 09/25/19 09:18 Dose: 220 mg Documented by: - Objective Vital Signs: Vital Signs Temperature 98.2 F 09/25/19 09:14 Pulse Rate 124 H 09/25/19 09:14 Respiratory Rate 19 09/25/19 09:14 Blood Pressure 119/54 L 09/25/19 09:14 O2 Sat by Pulse Oximetry (%) 95 09/25/19 09:14 Constitutional: Yes: Anxious Eyes: Yes: WNL HENT: Yes: WNL Cardiovascular: Yes: S1 (varies in intensity), S2 (split) Respiratory: Yes: Diminished Gastrointestinal: Yes: Soft ...Rectal Exam: Yes: Deferred Genitourinary: No: Anuria Musculoskeletal: Yes: Muscle Weakness Extremities: Yes: Cool Edema: No Integumentary: Yes: WNL Neurological: Yes: Alert, Oriented, Weakness Psychiatric: Yes: Alert, Oriented, Other (anxiety) Labs: CBC, BMP 09/25/19 06:14 09/25/19 06:14 INR, PTT INR 1.97 (0.83-1.09) H 09/23/19 18:40 - ....Imaging Chest X-ray: Image Reviewed EKG: Image Reviewed Assessment/Plan This is a 78 y/o male with a significant medical history of Afib (on Eliquis), Angina, bioprosthetic Aortic valve, diastolic CHF, HTN, HLD, GI Bleed, recent admission 09/19-09/21 Suspected Covid, Afl, ACS. Admitted to Telemetry for Acute on Chronic CHF Exacerbation, Acute Respiratory failure with Hypoxia, Suspected Covi d 19-Infection for further evaluation of their emergent condition. 1. Clinical presentation is consistent with chronic class I-II NYHA classification LV diastolic heart failure, no evidence of acute decompensation- chest x-ray findings related to patient's recent coronavirus/COVID 19 pneumonitis- elevated BNP level related to patient's chronic heart failure syndrome and persistence of atrial arrhythmia/atrial flutter; negative Trop 2. History of a recent acute hypoxic respiratory failure related to bronchopneumonia with probable sepsis syndrome, coronavirus/COVID 19 3. Persistent atrial flutter with periods rapid ventricular response- 4. CAD post CABG with negative Trop this time 5. Aortic valve stenosis post SAVR/bio-prosthesis- with LA appendage ligation 6. Hypertensive cardiovascular disease 7. Hypercholesterolemia 8. History of altered mental status etiology of which was unclear- prior history of clinical depression 9. History of bacteremia- 10. Anemia PLAN: Pt febrile; pulmonary/fever management by primary team. AFl fluctuation due to underlying disorder, cont rate control+anticoag Cardiac: 1. Continue Toprol XL 100 bid with dose titration as needed hemodynamics permitting; use prn IV 5mg 2. Continue Cardizem CD 120 qd with dose titration as needed hemodynamics permitting (pt's HR varies today from 90-120 bpm). 3. Continue Atorvastatin 40 qd 4. Continue Eliquis 5 bid 5. Continue Lasix 20 qd with monitoring of diuretic response, renal function and electrolytes 6. As outlined in the prior notes from recent hospitalization recommend early intervention for management of the above-noted recurrent/persistent atrial flutter- synchronized elective cardioversion- pending improvement of his respiratory status
--- NOTE | 2019-09-25 15:12 | PN ---
Progress Note (short form) - Note Progress Note: feels better less sob no further fevers ct scan with improved GGO, new pleural effusions suggesting component of CHF Vital Signs Period Temp Pulse Resp BP Sys/Amador Pulse Ox Last 24 Hr 97.4 F-99 F 75-130 18-20 98-128/49-76 95-99 cor-rrr lungs decreased b sa t bases abd soft,nt ext no edema CBC, BMP 09/25/19 06:14 09/25/19 06:14 Microbiology 09/24/19 10:45 Blood - Peripheral Venous Blood Culture - Preliminary NO GROWTH OBTAINED AFTER 24 HOURS, INCUBATION TO CONTINUE FOR 4 DAYS. 09/24/19 10:40 Blood - Peripheral Venous Blood Culture - Preliminary NO GROWTH OBTAINED AFTER 24 HOURS, INCUBATION TO CONTINUE FOR 4 DAYS. 09/24/19 10:46 Urine - Urine Clean Catch Urine Culture - Final NO GROWTH OBTAINED a/p fever- ?source suspect chf afib ?prior covid 19- repeat pcr and serologies are negative s/p TAVR continue vanco/zosyn f/u cultures
[2019-09-25] MEDS ORDERED: PNEUMOC 13-VAL CONJ-DIP CRM/PF 0.5 ML DISP.SYRIN IM ONE (20:00)
[2019-09-25] MEDS: ATORVASTATIN CA 40 MG TABLET (FP) PO SCH (21:29)
[2019-09-26] MEDS ORDERED: DEXTROSE 5%-WATER - 50 ML IVPB ONE ×3 (01:08→16:58)
[2019-09-26] MEDS ORDERED: PIPERACILLIN/TAZOBACTAM 3.375 GM VIAL IVPB ONE ×3 (01:08→16:58)
[2019-09-26] MEDS: PIPERACILLIN/TAZOB 3.375 GM 3.375 GM in DEXTROSE 5%-WATER - 50 ML IVPB SCH ×3 (01:18→17:12)
--- NOTE | 2019-09-26 06:46 | PN ---
Progress Note, Physician History of Present Illness: pulmonary alert,comfortable,sob improving,-cp. covid pcr negative - Current Medication List Current Medications: Active Medications Acetaminophen (Tylenol -) 650 mg PO Q6H PRN PRN Reason: FEVER Last Admin: 09/24/19 11:15 Dose: 650 mg Documented by: Albuterol Sulfate (Ventolin Hfa Inhaler -) 2 puff IH Q4H PRN PRN Reason: SHORT OF BREATH/WHEEZING Apixaban (Eliquis -) 5 mg PO BID [facility] BEDS AT [facility] Last Admin: 09/25/19 21:29 Dose: 5 mg Documented by: Ascorbic Acid (Vitamin C -) 500 mg PO DAILY [facility] 234 BEDS AT [facility] Last Admin: 09/25/19 09:18 Dose: 500 mg Documented by: Atorvastatin Calcium (Lipitor -) 40 mg PO HS [facility] 234 BEDS AT [facility] Last Admin: 09/25/19 21:29 Dose: 40 mg Documented by: Diltiazem HCl (Cardizem Cd -) 120 mg PO DAILY [facility] B[facility]S AT [facility] Last Admin: 09/25/19 09:18 Dose: 120 mg Documented by: Furosemide (Lasix Injection -) 20 mg IVPUSH DAILY [facility] 234 BEDS AT [facility] Last Admin: 09/25/19 09:16 Dose: 20 mg Documented by: Piperacillin Sod/Tazobactam (Sod 3.375 gm/ Dextrose) 50 mls @ 100 mls/hr IVPB Q8H-IV [facility]; Protocol Last Admin: 09/26/19 01:18 Dose: 100 mls/hr Documented by: Vancomycin HCl 1,000 mg/ (Dextrose) 250 mls @ 166.667 mls/hr IVPB Q24H [facility]S [facility]CLUDE 234 BEDS AT [facility]; Protocol Methylprednisolone Sodium Succinate (Solu-Medrol -) 40 mg IVPUSH BID [facility] 234 BEDS AT [facility] Last Admin: 09/25/19 21:29 Dose: 40 mg Documented by: Metoprolol Succinate (Toprol Xl -) 100 mg PO BID [facility] 234 BEDS AT [facility] Last Admin: 09/25/19 21:30 Dose: Not Given Documented by: Pantoprazole Sodium (Protonix -) 40 mg PO DAILY [facility] 234 BEDS AT [facility] Last Admin: 09/25/19 09:18 Dose: 40 mg Documented by: Zinc Sulfate (Orazinc -) 220 mg PO BID [facility] 234 BEDS AT [facility] Last Admin: 09/25/19 21:29 Dose: 220 mg Documented by: - Objective Vital Signs: Vital Signs Temperature 98.2 F 09/26/19 06:00 Pulse Rate 82 09/26/19 06:00 Respiratory Rate 18 09/26/19 06:00 Blood Pressure 119/70 09/26/19 06:00 O2 Sat by Pulse Oximetry (%) 97 09/26/19 06:00 Constitutional: Yes: Calm, Thin Eyes: Yes: WNL HENT: Yes: WNL Neck: Yes: WNL Cardiovascular: Yes: Pulse Irregular, S1, S2 Respiratory: Yes: Rales (bibasailar rales) Gastrointestinal: Yes: Normal Bowel Sounds, Soft Extremities: Yes: WNL Edema: No Labs: CBC, BMP 09/25/19 06:14 Assessment/Plan Assessment/Plan Acute Hypoxic Respiratory Failure Suspect COVID19 Pneumonitis PCR negative LV Diastolic Dysfunction Atrial Fibrillation HTN Hyperlipidemia - medrol - lasix - O2 to keep SpO2 >90% - send COVID19 Ab - trend inflammatory markers - rate control - anticoagulation - COVID PCR not detected DR DAVIS
[2019-09-26 08:10] LABS: BLOOD UREA NITROGEN 28.9 mg/dL (7-18); CALCIUM 8.1 mg/dL (8.5-10.1); CREATININE 1.2 mg/dL (0.55-1.3)
[2019-09-26] MEDS: APIXABAN 5 MG TABLET PO SCH ×2 (09:10→21:40)
[2019-09-26] MEDS: ZINC SULFATE 220 MG CAPSULE (FP) PO SCH ×2 (09:10→21:40)
[2019-09-26] MEDS: PANTOPRAZOLE 40 MG TABLET PO SCH (09:11)
[2019-09-26] MEDS: ASCORBIC ACID 500 MG TABLET (FP) PO SCH (09:11)
[2019-09-26] MEDS: FUROSEMIDE 40 MG/4 ML INJECTABLE VIAL IVPUSH SCH (09:13)
[2019-09-26] MEDS: methylPREDNISolone NA SUCC 40 MG/1 ML VIAL IVPUSH SCH ×2 (09:14→21:40)
[2019-09-26] MEDS: VANCOMYCIN 1 GRAM (PRE-DOCKED) 1,000 MG/250 ML BAG IVPB SCH (10:04)
--- NOTE | 2019-09-26 13:42 | PN ---
Progress Note (short form) - Note Progress Note: pt examined today appears comfortable denies SOB had elevated HR today Vital Signs - 24 hr 09/25/19 09/25/19 09/26/19 18:00 21:00 02:00 Temperature 97.9 F 97.4 F L 97.7 F Pulse Rate 80 80 80 Respiratory 19 19 18 Rate Blood Pressure 98/50 L 98/63 98/52 L O2 Sat by Pulse 100 100 100 Oximetry (%) 09/26/19 09/26/19 09/26/19 06:00 09:00 09:42 Temperature 98.2 F 97.8 F Pulse Rate 82 130 H Respiratory 18 18 Rate Blood Pressure 119/70 128/87 O2 Sat by Pulse 97 98 98 Oximetry (%) 09/26/19 14:03 Temperature 98.3 F Pulse Rate 80 Respiratory 18 Rate Blood Pressure 109/72 O2 Sat by Pulse 98 Oximetry (%) Current Medications Generic Name Dose Route Start Last Admin Trade Name Freq PRN Reason Stop Dose Admin Acetaminophen 650 mg 09/24/19 10:05 09/24/19 11:15 Tylenol - PO 650 mg Q6H PRN Administration FEVER Albuterol Sulfate 2 puff 09/24/19 01:07 Ventolin Hfa Inhaler - IH Q4H PRN SHORT OF BREATH/WHEEZING Apixaban 5 mg 09/24/19 10:00 09/26/19 09:10 Eliquis - PO 5 mg BID [facility] Administration Ascorbic Acid 500 mg 09/24/19 10:00 09/26/19 09:11 Vitamin C - PO 500 mg DAILY [facility] Administration Atorvastatin Calcium 40 mg 09/24/19 22:00 09/25/19 21:29 Lipitor - PO 40 mg HS [facility] Administration Diltiazem HCl 120 mg 09/24/19 10:00 09/26/19 09:11 Cardizem Cd - PO 120 mg DAILY [facility] Administration Furosemide 20 mg 09/24/19 10:00 09/26/19 09:13 Lasix Injection - IVPUSH 20 mg DAILY [facility] Administration Piperacillin Sod/Tazobactam 50 mls @ 100 mls/hr 09/24/19 15:15 09/26/19 09:16 Sod 3.375 gm/ Dextrose IVPB 100 mls/hr Q8H-IV [facility] Administration Protocol Vancomycin HCl 1,000 mg in 250 mls @ 166.667 mls/hr 09/26/19 10:00 09/26/19 10:04 Vancomycin (Pre-Docked) IVPB 166.667 mls/hr Q24H [facility] Administration Protocol Methylprednisolone Sodium Succinate 40 mg 09/24/19 22:00 09/26/19 09:14 Solu-Medrol - IVPUSH 40 mg BID [facility] Administration Metoprolol Succinate 100 mg 09/24/19 10:00 09/26/19 09:10 Toprol Xl - PO 100 mg BID [facility] Administration Pantoprazole Sodium 40 mg 09/24/19 10:00 09/26/19 09:11 Protonix - PO 40 mg DAILY [facility] Administration Zinc Sulfate 220 mg 09/24/19 10:00 09/26/19 09:10 Orazinc - PO 220 mg BID [facility] Administration Laboratory Results - last 24 hr 09/26/19 09/26/19 06:00 12:28 D-Dimer 559 H Sodium 138 Potassium 4.0 Chloride 109 H Carbon Dioxide 24 Anion Gap 5 L BUN 28.9 H Creatinine 1.2 Est GFR (CKD-EPI)AfAm 67.20 Est GFR (CKD-EPI)NonAf 57.98 Random Glucose 120 H Calcium 8.1 L Ferritin 974.6 H LD Total 436 H C-Reactive Protein 9.2 H S1 S2 Irregular Lungs decreased breath sounds Abd- soft, NT No edema A/P Fever, pneumonitis CHF decompensation Aflutter -- COVID negative -- iv lasix -- on steroids -- O2 -- pt remains afebrile -- he did not have positive COVID serologies during his previous admissions here -- check inflammatory markers-- decreasing Problem List - Problems (1) Acute on chronic diastolic (congestive) heart failure Code(s): I50.33 - ACUTE ON CHRONIC DIASTOLIC (CONGESTIVE) HEART FAILURE (2) Acute respiratory failure with hypoxia Code(s): J96.01 - ACUTE RESPIRATORY FAILURE WITH HYPOXIA (3) Atrial fibrillation Code(s): I48.91 - UNSPECIFIED ATRIAL FIBRILLATION (4) GERD (gastroesophageal reflux disease) Code(s): K21.9 - GASTRO-ESOPHAGEAL REFLUX DISEASE WITHOUT ESOPHAGITIS (5) HTN (hypertension) Code(s): I10 - ESSENTIAL (PRIMARY) HYPERTENSION Qualifiers: Hypertension type: essential hypertension Qualified Code(s): I10 - Essential (primary) hypertension (6) Suspected 2019 novel coronavirus infection Code(s): Z20.828 - CONTACT W AND EXPOSURE TO [facility] VIRAL COMMUNICABLE DISEASES
--- NOTE | 2019-09-26 18:14 | PN ---
Progress Note, Physician Chief Complaint: Pt A&Ox3; Denies chest pain, dyspnea, or palpitations. History of Present Illness: [facility] 78 [facility] PMHx Afib (on Eliquis), Angina, bioprosthetic Aortic valve, diastolic CHF, HTN, HLD, GI Bleed, recent admission 09/19-09/21 Suspected Covid, Afibrillation, ACS. Who presents to the ED with difficulty breathing. Patient reports having progressive SOB while using O2. Patient denies fever, chills, dizziness, SPEARS, CP , palpitations, AP, N/V/D, constipation, dysuria. P - Current Medication List Current Medications: Active Medications Acetaminophen (Tylenol -) 650 mg PO Q6H PRN PRN Reason: FEVER Last Admin: 09/24/19 11:15 Dose: 650 mg Documented by: Albuterol Sulfate (Ventolin Hfa Inhaler -) 2 puff IH Q4H PRN PRN Reason: SHORT OF BREATH/WHEEZING Apixaban (Eliquis -) 5 mg PO BID [facility] Last Admin: 09/26/19 09:10 Dose: 5 mg Documented by: Ascorbic Acid (Vitamin C -) 500 mg PO DAILY [facility] Last Admin: 09/26/19 09:11 Dose: 500 mg Documented by: Atorvastatin Calcium (Lipitor -) 40 mg PO HS [facility] Last Admin: 09/25/19 21:29 Dose: 40 mg Documented by: Diltiazem HCl (Cardizem Cd -) 120 mg PO DAILY [facility] Last Admin: 09/26/19 09:11 Dose: 120 mg Documented by: Furosemide (Lasix Injection -) 20 mg IVPUSH DAILY [facility] Last Admin: 09/26/19 09:13 Dose: 20 mg Documented by: Piperacillin Sod/Tazobactam (Sod 3.375 gm/ Dextrose) 50 mls @ 100 mls/hr IVPB Q8H-IV [facility]; Protocol Last Admin: 09/26/19 17:12 Dose: 100 mls/hr Documented by: Vancomycin HCl (Vancomycin (Pre-Docked)) 1,000 mg in 250 mls @ 166.667 mls/hr IVPB Q24H [facility]; Protocol Last Admin: 09/26/19 10:04 Dose: 166.667 mls/hr Documented by: Methylprednisolone Sodium Succinate (Solu-Medrol -) 40 mg IVPUSH BID [facility] Last Admin: 09/26/19 09:14 Dose: 40 mg Documented by: Metoprolol Succinate (Toprol Xl -) 100 mg PO BID [facility] Last Admin: 09/26/19 09:10 Dose: 100 mg Documented by: Pantoprazole Sodium (Protonix -) 40 mg PO DAILY [facility] Last Admin: 09/26/19 09:11 Dose: 40 mg Documented by: Zinc Sulfate (Orazinc -) 220 mg PO BID [facility] Last Admin: 09/26/19 09:10 Dose: 220 mg Documented by: - Objective Vital Signs: Vital Signs Temperature 97.5 F L 09/26/19 18:00 Pulse Rate 88 09/26/19 18:00 Respiratory Rate 18 09/26/19 18:00 Blood Pressure 125/60 09/26/19 18:00 O2 Sat by Pulse Oximetry (%) 97 09/26/19 18:00 Labs: CBC, BMP 09/25/19 06:14 09/26/19 06:00 INR, PTT INR 1.97 (0.83-1.09) H 09/23/19 18:40
[2019-09-26] MEDS: ATORVASTATIN CA 40 MG TABLET (FP) PO SCH (21:40)
[2019-09-27] MEDS ORDERED: PIPERACILLIN/TAZOBACTAM 3.375 GM VIAL IVPB ONE ×2 (01:04→08:23)
[2019-09-27] MEDS ORDERED: DEXTROSE 5%-WATER - 50 ML IVPB ONE ×2 (01:05→08:24)
[2019-09-27] MEDS: PIPERACILLIN/TAZOB 3.375 GM 3.375 GM in DEXTROSE 5%-WATER - 50 ML IVPB SCH ×2 (01:15→09:03)
[2019-09-27] MEDS: ASCORBIC ACID 500 MG TABLET (FP) PO SCH (09:02)
[2019-09-27] MEDS: ZINC SULFATE 220 MG CAPSULE (FP) PO SCH ×2 (09:02→22:09)
[2019-09-27] MEDS: APIXABAN 5 MG TABLET PO SCH ×2 (09:02→22:09)
[2019-09-27] MEDS: FUROSEMIDE 40 MG/4 ML INJECTABLE VIAL IVPUSH SCH (09:02)
[2019-09-27] MEDS: methylPREDNISolone NA SUCC 40 MG/1 ML VIAL IVPUSH SCH ×2 (09:02→22:10)
[2019-09-27] MEDS: PANTOPRAZOLE 40 MG TABLET PO SCH (09:03)
--- NOTE | 2019-09-27 10:50 | PN ---
Progress Note, Physician History of Present Illness: Ambulatory desaturation 87-88% RA, HR 130s, denies BLOCK or chest pain. - Current Medication List Current Medications: Active Medications Acetaminophen (Tylenol -) 650 mg PO Q6H PRN PRN Reason: FEVER Last Admin: 09/24/19 11:15 Dose: 650 mg Documented by: Albuterol Sulfate (Ventolin Hfa Inhaler -) 2 puff IH Q4H PRN PRN Reason: SHORT OF BREATH/WHEEZING Apixaban (Eliquis -) 5 mg PO BID [facility] Last Admin: 09/27/19 09:02 Dose: 5 mg Documented by: Ascorbic Acid (Vitamin C -) 500 mg PO DAILY [facility] Last Admin: 09/27/19 09:02 Dose: 500 mg Documented by: Atorvastatin Calcium (Lipitor -) 40 mg PO HS [facility] Last Admin: 09/26/19 21:40 Dose: 40 mg Documented by: Diltiazem HCl (Cardizem Cd -) 120 mg PO DAILY [facility] Last Admin: 09/27/19 09:02 Dose: 120 mg Documented by: Furosemide (Lasix Injection -) 20 mg IVPUSH DAILY [facility] Last Admin: 09/27/19 09:02 Dose: 20 mg Documented by: Piperacillin Sod/Tazobactam (Sod 3.375 gm/ Dextrose) 50 mls @ 100 mls/hr IVPB Q8H-IV [facility]; Protocol Last Admin: 09/27/19 09:03 Dose: 100 mls/hr Documented by: Vancomycin HCl (Vancomycin (Pre-Docked)) 1,000 mg in 250 mls @ 166.667 mls/hr IVPB Q24H [facility]; Protocol Last Admin: 09/26/19 10:04 Dose: 166.667 mls/hr Documented by: Methylprednisolone Sodium Succinate (Solu-Medrol -) 40 mg IVPUSH BID [facility] Last Admin: 09/27/19 09:02 Dose: 40 mg Documented by: Metoprolol Succinate (Toprol Xl -) 100 mg PO BID [facility] Last Admin: 09/27/19 09:02 Dose: 100 mg Documented by: Pantoprazole Sodium (Protonix -) 40 mg PO DAILY [facility] Last Admin: 09/27/19 09:03 Dose: 40 mg Documented by: Zinc Sulfate (Orazinc -) 220 mg PO BID [facility] Last Admin: 09/27/19 09:02 Dose: 220 mg Documented by: - Objective Vital Signs: Vital Signs Temperature 98.6 F 09/27/19 09:00 Pulse Rate 88 09/27/19 09:00 Respiratory Rate 18 09/27/19 09:00 Blood Pressure 119/73 09/27/19 09:00 O2 Sat by Pulse Oximetry (%) 94 L 09/27/19 09:00 Constitutional: Yes: No Distress, Calm, Thin Neck: Yes: Supple Cardiovascular: Yes: Tachycardia, Pulse Irregular Respiratory: Yes: Regular, Diminished, SOB Gastrointestinal: Yes: Normal Bowel Sounds, Soft Edema: No Labs: CBC, BMP 09/25/19 06:14 09/26/19 06:00 INR, PTT INR 1.97 (0.83-1.09) H 09/23/19 18:40 - ....Imaging EKG: Report Reviewed (Tele: Samara) Assessment/Plan Problem List - Problems (1) Acute on chronic diastolic (congestive) heart failure Code(s): I50.33 - ACUTE ON CHRONIC DIASTOLIC (CONGESTIVE) HEART FAILURE (2) Aortic valve stenosis Code(s): I35.0 - NONRHEUMATIC AORTIC (VALVE) STENOSIS Qualifiers: Cardiac valve disease etiology: nonrheumatic Qualified Code(s): I35.0 - Nonrheumatic aortic (valve) stenosis (3) Atrial flutter Code(s): I48.92 - UNSPECIFIED ATRIAL FLUTTER Qualifiers: Atrial flutter type: unspecified Qualified Code(s): I48.92 - Unspecified atrial flutter (4) CAD (coronary artery disease) Code(s): I25.10 - ATHSCL HEART DISEASE OF [place] CORONARY ARTERY W/O ANG PCTRS Qualifiers: Coronary Disease-Associated Artery/Lesion type: [place] artery [place] vs. transplanted heart: [place] heart Associated angina: without angina Qualified Code(s): I25.10 - Atherosclerotic heart disease of [place] coronary artery without angina pectoris (5) HTN (hypertension) Code(s): I10 - ESSENTIAL (PRIMARY) HYPERTENSION Qualifiers: Hypertension type: essential hypertension (6) Hx of CABG Code(s): Z95.1 - PRESENCE OF AORTOCORONARY BYPASS GRAFT (7) Hypercholesterolemia Code(s): E78.00 - PURE HYPERCHOLESTEROLEMIA, UNSPECIFIED (8) S/P AVR (aortic valve replacement) Code(s): Z95.2 - PRESENCE OF PROSTHETIC HEART VALVE (9) S/P left atrial appendage ligation Code(s): Z98.890 - OTHER SPECIFIED POSTPROCEDURAL STATES (10) Suspected 2019 novel coronavirus infection Code(s): Z20.828 - CONTACT W AND EXPOSURE TO OTH VIRAL COMMUNICABLE DISEASES Assessment/Plan Echo 09/03/2019 Post-op septal motion, normal LVEF 50-55%, mod cLVH, normal RV size and fxn, mild LAE, mild MR, TR, bioAVR, mild AR, restrictive physiology Echocardiography October 12, 2018 revealed mild degree of concentric left ventricular hypertrophy with normal left ventricular systolic function and estimated LVEF between 65-70%, mild left atrial dilatation, normal right ventricular size and systolic function, aortic valve bioprosthesis with no aortic valve insufficiency, moderately dilated ascending aorta, mild thickening of the mitral valve leaflets with mild mitral valve regurgitation, mild to moderate tricuspid valve regurgitation with calculated RVSP of [address]: Small-moderate right and very small left effusion, pulm edema TAA 3.9 cm 1. Clinical presentation is consistent with chronic class I-II NYHA classification LV diastolic heart failure, no evidence of acute decompensation- chest x-ray findings related to patient's recent coronavirus/COVID 19 pneumonitis- elevated BNP level related to patient's chronic heart failure syndrome and persistence of atrial arrhythmia/atrial flutter; negative Trop 2. Acute hypoxic respiratory failure related to sequelae of coronavirus/COVID 19 pneumonitis 3. Persistent atrial flutter with periods rapid ventricular response 4. CAD post CABG with negative Trop this time 5. Aortic valve stenosis post SAVR/bio-prosthesis- with LA appendage ligation 6. Hypertensive cardiovascular disease 7. Hypercholesterolemia 8. History of altered mental status etiology of which was unclear- prior history of clinical depression 9. History of bacteremia- 10. Anemia PLAN: 1. Continue Toprol XL 100 bid with dose titration as needed hemodynamics permitting; use prn IV 5mg 2. Continue Cardizem CD 120 qd with dose titration as needed hemodynamics permitting 3. Continue Atorvastatin 40 qd 4. Continue Eliquis 5 bid 5. Continue Lasix 20 qd with monitoring of diuretic response, renal function and electrolytes 6. As outlined in the prior notes from recent hospitalization recommend early intervention for management of the above-noted recurrent/persistent atrial flutter- synchronized elective cardioversion- pending improvement of his respiratory status 7. IV steroid taper with GI protection, empiric abx, O2 to keep SpO2 >90%, PT as tolerated
--- NOTE | 2019-09-27 11:31 | PN ---
Progress Note, Physician History of Present Illness: pt seen/ examined chart reviewed awake/ comfortable feels much better Mood calm - Current Medication List Current Medications: Active Medications Acetaminophen (Tylenol -) 650 mg PO Q6H PRN PRN Reason: FEVER Last Admin: 09/24/19 11:15 Dose: 650 mg Documented by: Albuterol Sulfate (Ventolin Hfa Inhaler -) 2 puff IH Q4H PRN PRN Reason: SHORT OF BREATH/WHEEZING Apixaban (Eliquis -) 5 mg PO BID [facility] Last Admin: 09/27/19 09:02 Dose: 5 mg Documented by: Ascorbic Acid (Vitamin C -) 500 mg PO DAILY [facility] Last Admin: 09/27/19 09:02 Dose: 500 mg Documented by: Atorvastatin Calcium (Lipitor -) 40 mg PO HS [facility] Last Admin: 09/26/19 21:40 Dose: 40 mg Documented by: Diltiazem HCl (Cardizem Cd -) 120 mg PO DAILY [facility] Last Admin: 09/27/19 09:02 Dose: 120 mg Documented by: Furosemide (Lasix Injection -) 20 mg IVPUSH DAILY [facility] Last Admin: 09/27/19 09:02 Dose: 20 mg Documented by: Piperacillin Sod/Tazobactam (Sod 3.375 gm/ Dextrose) 50 mls @ 100 mls/hr IVPB Q8H-IV [facility]; Protocol Last Admin: 09/27/19 09:03 Dose: 100 mls/hr Documented by: Vancomycin HCl (Vancomycin (Pre-Docked)) 1,000 mg in 250 mls @ 166.667 mls/hr IVPB Q24H [facility]; Protocol Last Admin: 09/26/19 10:04 Dose: 166.667 mls/hr Documented by: Methylprednisolone Sodium Succinate (Solu-Medrol -) 40 mg IVPUSH BID [facility] Last Admin: 09/27/19 09:02 Dose: 40 mg Documented by: Metoprolol Succinate (Toprol Xl -) 100 mg PO BID [facility] Last Admin: 09/27/19 09:02 Dose: 100 mg Documented by: Pantoprazole Sodium (Protonix -) 40 mg PO DAILY [facility] Last Admin: 09/27/19 09:03 Dose: 40 mg Documented by: Zinc Sulfate (Orazinc -) 220 mg PO BID [facility] Last Admin: 09/27/19 09:02 Dose: 220 mg Documented by: - Objective Vital Signs: Vital Signs Temperature 98.6 F 09/27/19 09:00 Pulse Rate 127 H 09/27/19 11:19 Respiratory Rate 18 09/27/19 09:00 Blood Pressure 119/73 09/27/19 09:00 O2 Sat by Pulse Oximetry (%) 91 L 09/27/19 11:19 Constitutional: Yes: No Distress, Calm Eyes: Yes: Conjunctiva Clear Neck: Yes: Supple Cardiovascular: Yes: Regular Rate and Rhythm Respiratory: Yes: Diminished Gastrointestinal: Yes: Soft Edema: No Neurological: Yes: Alert Labs: CBC, BMP 09/25/19 06:14 09/26/19 06:00 INR, PTT INR 1.97 (0.83-1.09) H 09/23/19 18:40 Problem List - Problems (1) Acute respiratory failure with hypoxia Code(s): J96.01 - ACUTE RESPIRATORY FAILURE WITH HYPOXIA (2) Atrial fibrillation Code(s): I48.91 - UNSPECIFIED ATRIAL FIBRILLATION (3) CAD (coronary artery disease) Code(s): I25.10 - ATHSCL HEART DISEASE OF [place] CORONARY ARTERY W/O ANG PCTRS Qualifiers: Coronary Disease-Associated Artery/Lesion type: [place] artery [place] vs. transplanted heart: [place] heart Associated angina: without angina Qualified Code(s): I25.10 - Atherosclerotic heart disease of [place] coronary artery wit hout angina pectoris (4) History of depression Code(s): Z86.59 - PERSONAL HISTORY OF OTHER MENTAL AND BEHAVIORAL DISORDERS (5) S/P AVR (aortic valve replacement) Code(s): Z95.2 - PRESENCE OF PROSTHETIC HEART VALVE (6) Suspected 2019 novel coronavirus infection Code(s): Z20.828 - CONTACT W AND EXPOSURE TO OTH VIRAL COMMUNICABLE DISEASES Assessment/Plan clinically much better Continue present care Steroids and antibiotics Ambulated with PT We will continue to follow
[2019-09-27] MEDS: VANCOMYCIN 1 GRAM (PRE-DOCKED) 1,000 MG/250 ML BAG IVPB SCH (12:20)
--- NOTE | 2019-09-27 12:35 | PN ---
Progress Note, Physician Chief Complaint: AWAKE, ALERT OOB IN CHAIR NO COMPLAINTS DENIES DYSPNEA/ COUGH NO C/S F/C CULTURES NEGATIVE - Current Medication List Current Medications: Active Medications Acetaminophen (Tylenol -) 650 mg PO Q6H PRN PRN Reason: FEVER Last Admin: 09/24/19 11:15 Dose: 650 mg Documented by: Albuterol Sulfate (Ventolin Hfa Inhaler -) 2 puff IH Q4H PRN PRN Reason: SHORT OF BREATH/WHEEZING Apixaban (Eliquis -) 5 mg PO BID [facility] Last Admin: 09/27/19 09:02 Dose: 5 mg Documented by: Ascorbic Acid (Vitamin C -) 500 mg PO DAILY [facility] Last Admin: 09/27/19 09:02 Dose: 500 mg Documented by: Atorvastatin Calcium (Lipitor -) 40 mg PO HS [facility] Last Admin: 09/26/19 21:40 Dose: 40 mg Documented by: Diltiazem HCl (Cardizem Cd -) 120 mg PO DAILY [facility] Last Admin: 09/27/19 09:02 Dose: 120 mg Documented by: Furosemide (Lasix Injection -) 20 mg IVPUSH DAILY [facility] Last Admin: 09/27/19 09:02 Dose: 20 mg Documented by: Piperacillin Sod/Tazobactam (Sod 3.375 gm/ Dextrose) 50 mls @ 100 mls/hr IVPB Q8H-IV [facility]; Protocol Last Admin: 09/27/19 09:03 Dose: 100 mls/hr Documented by: Vancomycin HCl (Vancomycin (Pre-Docked)) 1,000 mg in 250 mls @ 166.667 mls/hr IVPB Q24H [facility]; Protocol Last Admin: 09/27/19 12:20 Dose: 166.667 mls/hr Documented by: Methylprednisolone Sodium Succinate (Solu-Medrol -) 40 mg IVPUSH BID [facility] Last Admin: 09/27/19 09:02 Dose: 40 mg Documented by: Metoprolol Succinate (Toprol Xl -) 100 mg PO BID [facility] Last Admin: 09/27/19 09:02 Dose: 100 mg Documented by: Pantoprazole Sodium (Protonix -) 40 mg PO DAILY [facility] Last Admin: 09/27/19 09:03 Dose: 40 mg Documented by: Zinc Sulfate (Orazinc -) 220 mg PO BID [facility] Last Admin: 09/27/19 09:02 Dose: 220 mg Documented by: - Objective Vital Signs: Vital Signs Temperature 98.6 F 09/27/19 09:00 Pulse Rate 127 H 09/27/19 11:19 Respiratory Rate 18 09/27/19 09:00 Blood Pressure 119/73 09/27/19 09:00 O2 Sat by Pulse Oximetry (%) 91 L 09/27/19 11:19 Constitutional: Yes: No Distress Eyes: Yes: Conjunctiva Clear Cardiovascular: Yes: Regular Rate and Rhythm, S1, S2 Respiratory: Yes: CTA Bilaterally Gastrointestinal: Yes: Normal Bowel Sounds, Soft. No: Tenderness Labs: CBC, BMP 09/25/19 06:14 09/26/19 06:00 INR, PTT INR 1.97 (0.83-1.09) H 09/23/19 18:40 Assessment/Plan BILATERAL INFILTRATES ? PNEUMONITIS ? CHF S/P FEVER S/P TAVR DAY#4 [facility] PO AUGMENTIN X 3D
--- NOTE | 2019-09-27 13:52 | PN ---
Progress Note (short form) - Note Progress Note: PULMONARY Breathing better. No fevers/chills. Less cough. Vital Signs Period Temp Pulse Resp BP Sys/Amador Pulse Ox Last 24 Hr 97.5 F-98.6 F 80-127 18-19 107-133/60-77 91-98 Gen: NAD at rest Heart: RRR Lung: decreased breath sounds at the bases Abd: soft, nontender Ext: no edema CBC, BMP 09/25/19 06:14 09/26/19 06:00 Active Medications Acetaminophen (Tylenol -) 650 mg PO Q6H PRN PRN Reason: FEVER Last Admin: 09/24/19 11:15 Dose: 650 mg Documented by: Albuterol Sulfate (Ventolin Hfa Inhaler -) 2 puff IH Q4H PRN PRN Reason: SHORT OF BREATH/WHEEZING Amoxicillin/Clavulanate Potassium (Augmentin - 875mg Tablet) 1 tab PO BID@0800,1730 [facility] Apixaban (Eliquis -) 5 mg PO BID [facility] Last Admin: 09/27/19 09:02 Dose: 5 mg Documented by: Ascorbic Acid (Vitamin C -) 500 mg PO DAILY [facility] Last Admin: 09/27/19 09:02 Dose: 500 mg Documented by: Atorvastatin Calcium (Lipitor -) 40 mg PO HS [facility] Last Admin: 09/26/19 21:40 Dose: 40 mg Documented by: Diltiazem HCl (Cardizem Cd -) 120 mg PO DAILY [facility] Last Admin: 09/27/19 09:02 Dose: 120 mg Documented by: Furosemide (Lasix Injection -) 20 mg IVPUSH DAILY [facility] Last Admin: 09/27/19 09:02 Dose: 20 mg Documented by: Methylprednisolone Sodium Succinate (Solu-Medrol -) 40 mg IVPUSH BID [facility] Last Admin: 09/27/19 09:02 Dose: 40 mg Documented by: Metoprolol Succinate (Toprol Xl -) 100 mg PO BID [facility] Last Admin: 09/27/19 09:02 Dose: 100 mg Documented by: Pantoprazole Sodium (Protonix -) 40 mg PO DAILY [facility] Last Admin: 09/27/19 09:03 Dose: 40 mg Documented by: Zinc Sulfate (Orazinc -) 220 mg PO BID [facility] Last Admin: 09/27/19 09:02 Dose: 220 mg Documented by: A/P Acute Hypoxic Respiratory Failure Suspect COVID19 Pneumonitis LV Diastolic Dysfunction Atrial Fibrillation HTN Hyperlipidemia - continue medrol - O2 to keep SpO2 >90% - trend inflammatory markers - rate control - continue anticoagulation
[2019-09-27] MEDS: AMOX TR/POT CLAV 875MG/125MG TABLETS (FP) PO SCH (17:38)
[2019-09-27] MEDS: ATORVASTATIN CA 40 MG TABLET (FP) PO SCH (22:09)
--- NOTE | 2019-09-28 06:38 | PN ---
Progress Note (short form) - Note Progress Note: Chief Complaint: Events noted, notes reviewed, Sitting in a chair, reports persistent dyspnea although clinically improved, denies palpitations, denies chest discomfort (Atrial flutter is persistent with rate control) History of Present Illness: Seen and examined on telemetry. Events noted, notes reviewed, Sitting in a chair, reports persistent dyspnea although clinically improved, denies palpitations, denies chest discomfort (Atrial flutter is persistent with rate control) As outlined in the prior notes ideally cardioversion is to be performed pending improvement of his respiratory status Medications: Current Medications Generic Name Dose Route Start Last Admin Trade Name Freq PRN Reason Stop Dose Admin Acetaminophen 650 mg 09/24/19 10:05 09/24/19 11:15 Tylenol - PO 650 mg Q6H PRN Administration FEVER Albuterol Sulfate 2 puff 09/24/19 01:07 Ventolin Hfa Inhaler - IH Q4H PRN SHORT OF BREATH/WHEEZING Amoxicillin/Clavulanate Potassium 1 tab 09/27/19 17:30 09/27/19 17:38 Augmentin - 875mg Tablet PO 1 tab BID@0800,1730 [facility] Administration Apixaban 5 mg 09/24/19 10:00 09/27/19 22:09 Eliquis - PO 5 mg BID [facility] Administration Ascorbic Acid 500 mg 09/24/19 10:00 09/27/19 09:02 Vitamin C - PO 500 mg DAILY [facility] Administration Atorvastatin Calcium 40 mg 09/24/19 22:00 09/27/19 22:09 Lipitor - PO 40 mg HS [facility] Administration Diltiazem HCl 120 mg 09/24/19 10:00 09/27/19 09:02 Cardizem Cd - PO 120 mg DAILY [facility] Administration Furosemide 20 mg 09/24/19 10:00 09/27/19 09:02 Lasix Injection - IVPUSH 20 mg DAILY [facility] Administration Methylprednisolone Sodium Succinate 40 mg 09/24/19 22:00 09/27/19 22:10 Solu-Medrol - IVPUSH 40 mg BID [facility] Administration Metoprolol Succinate 100 mg 09/24/19 10:00 09/27/19 22:09 Toprol Xl - PO 100 mg BID [facility] Administration Pantoprazole Sodium 40 mg 09/24/19 10:00 09/27/19 09:03 Protonix - PO 40 mg DAILY [facility] Administration Zinc Sulfate 220 mg 09/24/19 10:00 09/27/19 22:09 Orazinc - PO 220 mg BID [facility] Administration Review of Systems Constitutional: denies Chills or Fever Respiratory: reports: Dyspnea Cardiovascular: As noted above Gastrointestinal: denies Nausea, Vomiting, Diarrhea or Constipation or Abdominal Discomfort Genitourinary: No Symptoms Reported Musculoskeletal: No Symptoms Reported Vital Signs: Last Vital Signs Temp Pulse Resp BP Pulse Ox 97.8 F 82 20 110/60 96 09/28/19 06:00 09/28/19 06:00 09/28/19 06:00 09/28/19 06:00 09/28/19 01:41 Intake & Output 09/25/19 09/26/19 09/27/19 09/28/19 23:59 23:59 23:59 23:59 Intake Total 1570 1120 1730 120 Output Total 850 850 620 250 Balance 972 663 7407 -130 Weight 126 lb 138 lb Neck: Supple Negative JVD Respiratory: Diminished Breath Sounds at the Bases Cardiovascular: S1 S2 Irregularly Irregular grade 2/6 systolic ejection murmur Gastrointestinal: Soft Benign Normal Bowel Sounds Ext: Negative Edema Labs: CBC, BMP 09/25/19 06:14 09/26/19 06:00 Hepatic Panel Total Bilirubin 0.9 mg/dL (0.2-1) 09/25/19 06:14 AST 23 U/L (15-37) 09/25/19 06:14 ALT 51 U/L (13-61) 09/25/19 06:14 Alkaline Phosphatase 60 U/L (45-117) 09/25/19 06:14 Albumin 1.9 g/dl (3.4-5.0) L 09/25/19 06:14 INR, PTT INR 1.97 (0.83-1.09) H 09/23/19 18:40 Assessment/Plan ASSESSMENT: 1. Clinical presentation is consistent with chronic class I-II NYHA classification LV diastolic heart failure, no evidence of acute decompensation- as outlined in the initial consultation chest x-ray findings related to patient's recent coronavirus/COVID 19 pneumonitis- elevated BNP level related to patient's chronic heart failure syndrome and persistence of atrial arrhythmia/atrial flutter 2. History of a recent acute hypoxic respiratory failure related to bronchopneumonia with probable sepsis syndrome, coronavirus/COVID 19 3. Persistent atrial flutter with periods rapid ventricular response- improved heart rate control [id number] score of 5 on DOAC's/Eliquis 4. CAD post CABG with evidence of demand ischemia related to the above-noted clinical presentation angina pectoris 5. Aortic valve stenosis post SAVR/bio-prosthesis- with LA appendage ligation 6. Hypertensive cardiovascular disease 7. Hypercholesterolemia 8. History of altered mental status etiology of which was unclear- prior history of clinical depression 9. History of bacteremia- endocarditis unlikely 10. Anemia PLAN: 1. Continue Toprol XL and dose titration as needed hemodynamics permitting 2. Continue Cardizem CD and dose titration as needed hemodynamics permitting 3. Continue Atorvastatin 4. Continue DOAC's/Eliquis 5. Continue Lasix therapy (Initiate oral Lasix therapy) with caution and close monitoring of renal function and electrolytes 6. As outlined in the prior notes recommend early intervention for management of the above-noted recurrent/persistent atrial flutter- synchronized elective cardioversion- pending improvement of his respiratory status Kate Agn MD
[2019-09-28] MEDS: APIXABAN 5 MG TABLET PO SCH ×2 (09:08→21:27)
[2019-09-28] MEDS: ZINC SULFATE 220 MG CAPSULE (FP) PO SCH ×2 (09:08→21:27)
[2019-09-28] MEDS: ASCORBIC ACID 500 MG TABLET (FP) PO SCH (09:08)
[2019-09-28] MEDS: AMOX TR/POT CLAV 875MG/125MG TABLETS (FP) PO SCH ×2 (09:09→17:10)
[2019-09-28] MEDS: PANTOPRAZOLE 40 MG TABLET PO SCH (09:10)
[2019-09-28] MEDS: FUROSEMIDE 40 MG/4 ML INJECTABLE VIAL IVPUSH SCH (09:10)
[2019-09-28] MEDS: methylPREDNISolone NA SUCC 40 MG/1 ML VIAL IVPUSH SCH ×2 (09:11→21:28)
--- NOTE | 2019-09-28 10:14 | PN ---
Progress Note, Physician History of Present Illness: PULMONARY ALERT,COMFORTABLE,-SOB,-CP - Current Medication List Current Medications: Active Medications Acetaminophen (Tylenol -) 650 mg PO Q6H PRN PRN Reason: FEVER Last Admin: 09/24/19 11:15 Dose: 650 mg Documented by: Albuterol Sulfate (Ventolin Hfa Inhaler -) 2 puff IH Q4H PRN PRN Reason: SHORT OF BREATH/WHEEZING Amoxicillin/Clavulanate Potassium (Augmentin - 875mg Tablet) 1 tab PO BID@0800,1730 [facility] Last Admin: 09/28/19 09:09 Dose: 1 tab Documented by: Apixaban (Eliquis -) 5 mg PO BID [facility] Last Admin: 09/28/19 09:08 Dose: 5 mg Documented by: Ascorbic Acid (Vitamin C -) 500 mg PO DAILY [facility] Last Admin: 09/28/19 09:08 Dose: 500 mg Documented by: Atorvastatin Calcium (Lipitor -) 40 mg PO HS [facility] Last Admin: 09/27/19 22:09 Dose: 40 mg Documented by: Diltiazem HCl (Cardizem Cd -) 120 mg PO DAILY [facility] Last Admin: 09/28/19 09:09 Dose: 120 mg Documented by: Furosemide (Lasix Injection -) 20 mg IVPUSH DAILY [facility] Last Admin: 09/28/19 09:10 Dose: 20 mg Documented by: Methylprednisolone Sodium Succinate (Solu-Medrol -) 40 mg IVPUSH BID [facility] Last Admin: 09/28/19 09:11 Dose: 40 mg Documented by: Metoprolol Succinate (Toprol Xl -) 100 mg PO BID [facility] Last Admin: 09/28/19 09:08 Dose: 100 mg Documented by: Pantoprazole Sodium (Protonix -) 40 mg PO DAILY [facility] Last Admin: 09/28/19 09:10 Dose: 40 mg Documented by: Zinc Sulfate (Orazinc -) 220 mg PO BID [facility] Last Admin: 09/28/19 09:08 Dose: 220 mg Documented by: - Objective Vital Signs: Vital Signs Temperature 98.3 F 09/28/19 09:00 Pulse Rate 84 09/28/19 09:00 Respiratory Rate 20 09/28/19 09:00 Blood Pressure 113/69 09/28/19 09:00 O2 Sat by Pulse Oximetry (%) 98 09/28/19 09:00 Constitutional: Yes: Well Nourished, Calm Eyes: Yes: WNL HENT: Yes: WNL Neck: Yes: WNL Cardiovascular: Yes: Pulse Irregular, S1, S2 Respiratory: Yes: Diminished Gastrointestinal: Yes: Normal Bowel Sounds, Soft Extremities: Yes: WNL Edema: No Labs: CBC, BMP 09/25/19 06:14 09/26/19 06:00 INR, PTT INR 1.97 (0.83-1.09) H 09/23/19 18:40 Laboratory Tests 09/27/19 06:00 Ferritin 762.9 H LD Total 322 H C-Reactive Protein 4.0 H Assessment/Plan Assessment/Plan Acute Hypoxic Respiratory Failure improved Suspect COVID19 Pneumonitis PCR negative LV Diastolic Dysfunction Atrial Fibrillation HTN Hyperlipidemia - medrol - lasix - O2 to keep SpO2 >90% - trend inflammatory markers - rate control - anticoagulation - COVID PCR not detected DR DAVIS
--- NOTE | 2019-09-28 15:32 | PN ---
Progress Note (short form) - Note Progress Note: pt examined today appears comfortable denies SOB appears depressed Vital Signs - 24 hr 09/27/19 09/27/19 09/27/19 18:04 21:00 22:00 Temperature 98.3 F 97.7 F Pulse Rate 83 81 Respiratory 18 18 Rate Blood Pressure 118/68 124/64 O2 Sat by Pulse 100 96 96 Oximetry (%) 09/28/19 09/28/19 09/28/19 01:41 06:00 09:00 Temperature 97.8 F 97.8 F 98.3 F Pulse Rate 83 82 84 Respiratory 20 20 20 Rate Blood Pressure 108/67 110/60 113/69 O2 Sat by Pulse 96 98 Oximetry (%) 09/28/19 13:17 Temperature 98.1 F Pulse Rate 83 Respiratory 16 Rate Blood Pressure 107/64 O2 Sat by Pulse Oximetry (%) Current Medications Generic Name Dose Route Start Last Admin Trade Name Freq PRN Reason Stop Dose Admin Acetaminophen 650 mg 09/24/19 10:05 09/24/19 11:15 Tylenol - PO 650 mg Q6H PRN Administration FEVER Albuterol Sulfate 2 puff 09/24/19 01:07 Ventolin Hfa Inhaler - IH Q4H PRN SHORT OF BREATH/WHEEZING Amoxicillin/Clavulanate Potassium 1 tab 09/27/19 17:30 09/28/19 09:09 Augmentin - 875mg Tablet PO 1 tab BID@0800,1730 MAGI Administration Apixaban 5 mg 09/24/19 10:00 09/28/19 09:08 Eliquis - PO 5 mg BID MAGI Administration Ascorbic Acid 500 mg 09/24/19 10:00 09/28/19 09:08 Vitamin C - PO 500 mg DAILY MAGI Administration Atorvastatin Calcium 40 mg 09/24/19 22:00 09/27/19 22:09 Lipitor - PO 40 mg HS MAGI Administration Diltiazem HCl 120 mg 09/24/19 10:00 09/28/19 09:09 Cardizem Cd - PO 120 mg DAILY MAGI Administration Furosemide 20 mg 09/24/19 10:00 09/28/19 09:10 Lasix Injection - IVPUSH 20 mg DAILY MAGI Administration Methylprednisolone Sodium Succinate 40 mg 09/24/19 22:00 09/28/19 09:11 Solu-Medrol - IVPUSH 40 mg BID MAGI Administration Metoprolol Succinate 100 mg 09/24/19 10:00 09/28/19 09:08 Toprol Xl - PO 100 mg BID MAGI Administration Pantoprazole Sodium 40 mg 09/24/19 10:00 09/28/19 09:10 Protonix - PO 40 mg DAILY MAGI Administration Zinc Sulfate 220 mg 09/24/19 10:00 09/28/19 09:08 Orazinc - PO 220 mg BID MAGI Administration S1 S2 Irregular Lungs decreased breath sounds Abd- soft, NT No edema A/P Fever, pneumonitis CHF decompensation Aflutter -- COVID negative -- iv lasix -- on steroids-- taper -- O2 -- pt remains afebrile -- he did not have positive COVID serologies during his previous admissions here -- check inflammatory markers-- decreasing Problem List - Problems (1) Acute on chronic diastolic (congestive) heart failure Code(s): I50.33 - ACUTE ON CHRONIC DIASTOLIC (CONGESTIVE) HEART FAILURE (2) Acute respiratory failure with hypoxia Code(s): J96.01 - ACUTE RESPIRATORY FAILURE WITH HYPOXIA (3) Atrial fibrillation Code(s): I48.91 - UNSPECIFIED ATRIAL FIBRILLATION (4) GERD (gastroesophageal reflux disease) Code(s): K21.9 - GASTRO-ESOPHAGEAL REFLUX DISEASE WITHOUT ESOPHAGITIS (5) HTN (hypertension) Code(s): I10 - ESSENTIAL (PRIMARY) HYPERTENSION Qualifiers: Hypertension type: essential hypertension Qualified Code(s): I10 - Essential (primary) hypertension (6) Suspected 2019 novel coronavirus infection Code(s): Z20.828 - CONTACT W AND EXPOSURE TO [facility] VIRAL COMMUNICABLE DISEASES
[2019-09-28] MEDS: ATORVASTATIN CA 40 MG TABLET (FP) PO SCH (21:27)
[2019-09-29] MEDS: AMOX TR/POT CLAV 875MG/125MG TABLETS (FP) PO SCH ×2 (07:59→17:04)
[2019-09-29] MEDS: APIXABAN 5 MG TABLET PO SCH ×2 (09:01→21:29)
[2019-09-29] MEDS: ASCORBIC ACID 500 MG TABLET (FP) PO SCH (09:01)
[2019-09-29] MEDS: PANTOPRAZOLE 40 MG TABLET PO SCH (09:01)
[2019-09-29] MEDS: ZINC SULFATE 220 MG CAPSULE (FP) PO SCH ×2 (09:01→21:29)
[2019-09-29] MEDS: FUROSEMIDE 40 MG/4 ML INJECTABLE VIAL IVPUSH SCH (09:02)
[2019-09-29] MEDS: methylPREDNISolone NA SUCC 40 MG/1 ML VIAL IVPUSH SCH ×2 (09:03→21:29)
--- NOTE | 2019-09-29 09:28 | PN ---
Progress Note, Physician History of Present Illness: Reports improved dyspnea, denies palpitations, chest discomfort (remains in rate-controlled Atrial flutter with 4:1 conduction) - Current Medication List Current Medications: Active Medications Acetaminophen (Tylenol -) 650 mg PO Q6H PRN PRN Reason: FEVER Last Admin: 09/24/19 11:15 Dose: 650 mg Documented by: Albuterol Sulfate (Ventolin Hfa Inhaler -) 2 puff IH Q4H PRN PRN Reason: SHORT OF BREATH/WHEEZING Amoxicillin/Clavulanate Potassium (Augmentin - 875mg Tablet) 1 tab PO BID@0800,1730 [facility] Last Admin: 09/29/19 07:59 Dose: 1 tab Documented by: Apixaban (Eliquis -) 5 mg PO BID [facility] Last Admin: 09/29/19 09:01 Dose: 5 mg Documented by: Ascorbic Acid (Vitamin C -) 500 mg PO DAILY [facility] Last Admin: 09/29/19 09:01 Dose: 500 mg Documented by: Atorvastatin Calcium (Lipitor -) 40 mg PO HS [facility] Last Admin: 09/28/19 21:27 Dose: 40 mg Documented by: Diltiazem HCl (Cardizem Cd -) 120 mg PO DAILY [facility] Last Admin: 09/29/19 09:01 Dose: 120 mg Documented by: Furosemide (Lasix Injection -) 20 mg IVPUSH DAILY [facility] Last Admin: 09/29/19 09:02 Dose: 20 mg Documented by: Methylprednisolone Sodium Succinate (Solu-Medrol -) 40 mg IVPUSH BID [facility] Last Admin: 09/29/19 09:03 Dose: 40 mg Documented by: Metoprolol Succinate (Toprol Xl -) 100 mg PO BID [facility] Last Admin: 09/29/19 09:01 Dose: 100 mg Documented by: Pantoprazole Sodium (Protonix -) 40 mg PO DAILY [facility] Last Admin: 09/29/19 09:01 Dose: 40 mg Documented by: Zinc Sulfate (Orazinc -) 220 mg PO BID [facility] Last Admin: 09/29/19 09:01 Dose: 220 mg Documented by: - Objective Vital Signs: Vital Signs Temperature 97.6 F 09/29/19 09:00 Pulse Rate 82 09/29/19 09:00 Respiratory Rate 20 09/29/19 09:00 Blood Pressure 123/69 09/29/19 09:00 O2 Sat by Pulse Oximetry (%) 96 09/29/19 09:00 Constitutional: Yes: No Distress, Calm, Thin Neck: Yes: Supple Cardiovascular: Yes: Regular Rate and Rhythm Respiratory: Yes: On Nasal O2, SOB Gastrointestinal: Yes: Normal Bowel Sounds, Soft Edema: No Labs: CBC, BMP 09/25/19 06:14 09/26/19 06:00 INR, PTT INR 1.97 (0.83-1.09) H 09/23/19 18:40 - ....Imaging EKG: Report Reviewed (Tele: Rate-controlled aflutter ECG: Aflutter @ 80 4:1 conduction ECG: Aflutter@83 4:1 conduction, LVH with repol abnl) Assessment/Plan Problem List - Problems (1) Acute on chronic diastolic (congestive) heart failure Code(s): I50.33 - ACUTE ON CHRONIC DIASTOLIC (CONGESTIVE) HEART FAILURE (2) Aortic valve stenosis Code(s): I35.0 - NONRHEUMATIC AORTIC (VALVE) STENOSIS Qualifiers: Cardiac valve disease etiology: nonrheumatic Qualified Code(s): I35.0 - Nonrheumatic aortic (valve) stenosis (3) Atrial flutter Code(s): I48.92 - UNSPECIFIED ATRIAL FLUTTER Qualifiers: Atrial flutter type: unspecified Qualified Code(s): I48.92 - Unspecified atrial flutter (4) CAD (coronary artery disease) Code(s): I25.10 - ATHSCL HEART DISEASE OF [place] CORONARY ARTERY W/O ANG PCTRS Qualifiers: Coronary Disease-Associated Artery/Lesion type: [place] artery [place] vs. transplanted heart: [place] heart Associated angina: without angina Qualified Code(s): I25.10 - Atherosclerotic heart disease of [place] coronary artery without angina pectoris (5) HTN (hypertension) Code(s): I10 - ESSENTIAL (PRIMARY) HYPERTENSION Qualifiers: Hypertension type: essential hypertension (6) Hx of CABG Code(s): Z95.1 - PRESENCE OF AORTOCORONARY BYPASS GRAFT (7) Hypercholesterolemia Code(s): E78.00 - PURE HYPERCHOLESTEROLEMIA, UNSPECIFIED (8) S/P AVR (aortic valve replacement) Code(s): Z95.2 - PRESENCE OF PROSTHETIC HEART VALVE (9) S/P left atrial appendage ligation Code(s): Z98.890 - OTHER SPECIFIED POSTPROCEDURAL STATES (10) Suspected 2019 novel coronavirus infection Code(s): Z20.828 - CONTACT W AND EXPOSURE TO OTH VIRAL COMMUNICABLE DISEASES Assessment/Plan Echo 09/03/2019 Post-op septal motion, normal LVEF 50-55%, mod cLVH, normal RV size and fxn, mild LAE, mild MR, TR, bioAVR, mild AR, restrictive physiology Echocardiography October 12, 2018 revealed mild degree of concentric left ventricular hypertrophy with normal left ventricular systolic function and estimated LVEF between 65-70%, mild left atrial dilatation, normal right ventricular size and systolic function, aortic valve bioprosthesis with no aortic valve insufficiency, moderately dilated ascending aorta, mild thickening of the mitral valve leaflets with mild mitral valve regurgitation, mild to moderate tricuspid valve regurgitation with calculated RVSP of [address]: Small-moderate right and very small left effusion, pulm edema TAA 3.9 cm 1. Clinical presentation is consistent with chronic class I-II NYHA classification LV diastolic heart failure, no evidence of acute decompensation- as outlined in the initial consultation chest x-ray findings related to patient's recent coronavirus/COVID 19 pneumonitis- elevated BNP level related to patient's chronic heart failure syndrome and persistence of atrial arrhythmia/atrial flutter 2. History of a recent acute hypoxic respiratory failure related to bronchopneumonia with probable sepsis syndrome, coronavirus/COVID 19 3. Persistent atrial flutter with periods rapid ventricular response [id number] score of 5 on DOAC's/Eliquis 4. CAD post CABG with evidence of demand ischemia related to the above-noted clinical presentation angina pectoris 5. Aortic valve stenosis post SAVR/bio-prosthesis- with LA appendage ligation 6. Hypertensive cardiovascular disease 7. Hypercholesterolemia 8. History of altered mental status etiology of which was unclear- prior history of clinical depression 9. History of bacteremia- endocarditis unlikely 10. Anemia PLAN: 1. Continue Toprol XL 100 bid with dose titration as needed hemodynamics permitting; use prn IV 5mg 2. Increase Cardizem CD 180 qd with dose titration as needed hemodynamics permitting 3. Continue Atorvastatin 40 qd 4. Continue Eliquis 5 bid 5. Continue Lasix 20 po qd with monitoring of diuretic response, renal function and electrolytes 6. As outlined in the prior notes from recent hospitalization recommend early intervention for management of the above-noted recurrent/persistent atrial flutter- synchronized elective cardioversion- pending improvement of his respiratory status 7. IV steroid taper with GI protection, BD, empiric abx, O2 to keep SpO2 >90%, PT as tolerated
[2019-09-29] MEDS: FUROSEMIDE 20 MG TABLET (FP) PO SCH (10:50)
--- NOTE | 2019-09-29 11:03 | PN ---
Progress Note, Physician History of Present Illness: PULMONARY ALERT,COMFORTABLE,SOB IMPROVING,-CP - Current Medication List Current Medications: Active Medications Acetaminophen (Tylenol -) 650 mg PO Q6H PRN PRN Reason: FEVER Last Admin: 09/24/19 11:15 Dose: 650 mg Documented by: Albuterol Sulfate (Ventolin Hfa Inhaler -) 2 puff IH Q4H PRN PRN Reason: SHORT OF BREATH/WHEEZING Amoxicillin/Clavulanate Potassium (Augmentin - 875mg Tablet) 1 tab PO BID@0800,1730 [facility] Last Admin: 09/29/19 07:59 Dose: 1 tab Documented by: Apixaban (Eliquis -) 5 mg PO BID [facility] Last Admin: 09/29/19 09:01 Dose: 5 mg Documented by: Ascorbic Acid (Vitamin C -) 500 mg PO DAILY [facility] Last Admin: 09/29/19 09:01 Dose: 500 mg Documented by: Atorvastatin Calcium (Lipitor -) 40 mg PO HS [facility] Last Admin: 09/28/19 21:27 Dose: 40 mg Documented by: Diltiazem HCl (Cardizem Cd -) 120 mg PO DAILY [facility] Last Admin: 09/29/19 09:01 Dose: 120 mg Documented by: Furosemide (Lasix -) 20 mg PO DAILY [facility] Last Admin: 09/29/19 10:50 Dose: 20 mg Documented by: Methylprednisolone Sodium Succinate (Solu-Medrol -) 40 mg IVPUSH BID [facility] Last Admin: 09/29/19 09:03 Dose: 40 mg Documented by: Metoprolol Succinate (Toprol Xl -) 100 mg PO BID [facility] Last Admin: 09/29/19 09:01 Dose: 100 mg Documented by: Pantoprazole Sodium (Protonix -) 40 mg PO DAILY [facility] Last Admin: 09/29/19 09:01 Dose: 40 mg Documented by: Zinc Sulfate (Orazinc -) 220 mg PO BID [facility] Last Admin: 09/29/19 09:01 Dose: 220 mg Documented by: - Objective Vital Signs: Vital Signs Temperature 97.6 F 09/29/19 09:00 Pulse Rate 82 09/29/19 09:00 Respiratory Rate 20 09/29/19 09:00 Blood Pressure 123/69 09/29/19 09:00 O2 Sat by Pulse Oximetry (%) 96 09/29/19 09:00 Constitutional: Yes: Well Nourished, Calm Eyes: Yes: WNL HENT: Yes: WNL Neck: Yes: WNL Cardiovascular: Yes: Pulse Irregular, S1, S2 Respiratory: Yes: Diminished Gastrointestinal: Yes: Normal Bowel Sounds, Soft Extremities: Yes: WNL Edema: No Labs: Assessment/Plan Assessment/Plan Acute Hypoxic Respiratory Failure improved Suspect COVID19 Pneumonitis PCR negative LV Diastolic Dysfunction Atrial Fibrillation HTN Hyperlipidemia - medrol taper - lasix - O2 to keep SpO2 >90% - trend inflammatory markers - rate control - anticoagulation - COVID PCR not detected DR DAVIS
--- NOTE | 2019-09-29 11:35 | PN ---
Progress Note (short form) - Note Progress Note: pt examined today appears comfortable denies SOB appears depressed Vital Signs - 24 hr 09/28/19 09/28/19 09/28/19 13:17 18:00 20:38 Temperature 98.1 F 98.0 F 97.6 F Pulse Rate 83 82 81 Respiratory 16 18 20 Rate Blood Pressure 107/64 113/65 118/69 O2 Sat by Pulse 98 99 Oximetry (%) 09/29/19 09/29/19 09/29/19 02:00 06:00 09:00 Temperature 97.4 F L 98 F 97.6 F Pulse Rate 83 83 82 Respiratory 20 20 20 Rate Blood Pressure 108/57 L 120/74 123/69 O2 Sat by Pulse 97 92 L 96 Oximetry (%) Current Medications Generic Name Dose Route Start Last Admin Trade Name Freq PRN Reason Stop Dose Admin Acetaminophen 650 mg 09/24/19 10:05 09/24/19 11:15 Tylenol - PO 650 mg Q6H PRN Administration FEVER Albuterol Sulfate 2 puff 09/24/19 01:07 Ventolin Hfa Inhaler - IH Q4H PRN SHORT OF BREATH/WHEEZING Amoxicillin/Clavulanate Potassium 1 tab 09/27/19 17:30 09/29/19 07:59 Augmentin - 875mg Tablet PO 1 tab BID@0800,1730 MAGI Administration Apixaban 5 mg 09/24/19 10:00 09/29/19 09:01 Eliquis - PO 5 mg BID MAGI Administration Ascorbic Acid 500 mg 09/24/19 10:00 09/29/19 09:01 Vitamin C - PO 500 mg DAILY MAGI Administration Atorvastatin Calcium 40 mg 09/24/19 22:00 09/28/19 21:27 Lipitor - PO 40 mg HS MAGI Administration Diltiazem HCl 120 mg 09/24/19 10:00 09/29/19 09:01 Cardizem Cd - PO 120 mg DAILY MAGI Administration Furosemide 20 mg 09/29/19 10:00 09/29/19 10:50 Lasix - PO 20 mg DAILY MAGI Administration Methylprednisolone Sodium Succinate 20 mg 09/29/19 22:00 Solu-Medrol - IVPUSH BID MAGI Metoprolol Succinate 100 mg 09/24/19 10:00 09/29/19 09:01 Toprol Xl - PO 100 mg BID MAGI Administration Pantoprazole Sodium 40 mg 09/24/19 10:00 09/29/19 09:01 Protonix - PO 40 mg DAILY MAGI Administration Zinc Sulfate 220 mg 09/24/19 10:00 09/29/19 09:01 Orazinc - PO 220 mg BID MAGI Administration S1 S2 Irregular Lungs decreased breath sounds Abd- soft, NT No edema A/P Fever, pneumonitis CHF decompensation Aflutter -- COVID negative -- iv lasix-->change to PO -- on steroids-- taper -- O2 -- pt remains afebrile -- he did not have positive COVID serologies during his previous admissions here -- check inflammatory markers-- decreasing -- spoke with son-- pt is anxious -- spoke with Psychiatry -- Dr Medina--> concerning about his anxiety and depression--->she would like to correct his A flutter , pneumonitis- instead of giving him psychotropic meds -- possible dc tomorrow Problem List - Problems (1) Acute on chronic diastolic (congestive) heart failure Code(s): I50.33 - ACUTE ON CHRONIC DIASTOLIC (CONGESTIVE) HEART FAILURE (2) Acute respiratory failure with hypoxia Code(s): J96.01 - ACUTE RESPIRATORY FAILURE WITH HYPOXIA (3) Atrial fibrillation Code(s): I48.91 - UNSPECIFIED ATRIAL FIBRILLATION (4) GERD (gastroesophageal reflux disease) Code(s): K21.9 - GASTRO-ESOPHAGEAL REFLUX DISEASE WITHOUT ESOPHAGITIS (5) HTN (hypertension) Code(s): I10 - ESSENTIAL (PRIMARY) HYPERTENSION Qualifiers: Hypertension type: essential hypertension Qualified Code(s): I10 - Essential (primary) hypertension (6) Suspected 2019 novel coronavirus infection Code(s): Z20.828 - CONTACT W AND EXPOSURE TO [facility] VIRAL COMMUNICABLE DISEASES
--- NOTE | 2019-09-29 13:12 | EKG ---
Test Reason : Blood Pressure : / mmHG Vent. Rate : 083 BPM Atrial Rate : 332 BPM P-R Int : 000 ms QRS Dur : 122 ms QT Int : 452 ms P-R-T Axes : 089 -08 191 degrees QTc Int : 531 ms ATRIAL FLUTTER WITH 4:1 A-V CONDUCTION LEFT VENTRICULAR HYPERTROPHY WITH QRS WIDENING AND REPOLARIZATION ABNORMALITY CANNOT RULE OUT SEPTAL INFARCT , AGE UNDETERMINED ABNORMAL ECG WHEN COMPARED WITH ECG OF 23-SEP-2019 22:25, ATRIAL FLUTTER HAS REPLACED ATRIAL FIBRILLATION MINIMAL CRITERIA FOR SEPTAL INFARCT ARE NOW PRESENT ST NOW DEPRESSED IN ANTERIOR LEADS Confirmed by MD JUDE, HILARIO ([id number]) on 09/29/2019 1:12:05 PM Referred By: Staci FAJARDO Confirmed By:HILARIO ROQUE MD
[2019-09-29] MEDS: ATORVASTATIN CA 40 MG TABLET (FP) PO SCH (21:29)
[2019-09-30] MEDS: AMOX TR/POT CLAV 875MG/125MG TABLETS (FP) PO SCH ×2 (08:37→17:26)
[2019-09-30] MEDS: methylPREDNISolone NA SUCC 40 MG/1 ML VIAL IVPUSH SCH (10:14)
[2019-09-30] MEDS: ASCORBIC ACID 500 MG TABLET (FP) PO SCH (10:15)
[2019-09-30] MEDS: PANTOPRAZOLE 40 MG TABLET PO SCH (10:15)
[2019-09-30] MEDS: ZINC SULFATE 220 MG CAPSULE (FP) PO SCH (10:15)
[2019-09-30] MEDS: APIXABAN 5 MG TABLET PO SCH ×2 (10:15→21:44)
[2019-09-30] MEDS: FUROSEMIDE 20 MG TABLET (FP) PO SCH (10:15)
--- NOTE | 2019-09-30 10:25 | PN ---
Progress Note, Physician History of Present Illness: Reports improved dyspnea, denies palpitations, chest discomfort (remains in rate-controlled Atrial flutter with 4:1 conduction) - Current Medication List Current Medications: Active Medications Acetaminophen (Tylenol -) 650 mg PO Q6H PRN PRN Reason: FEVER Last Admin: 09/24/19 11:15 Dose: 650 mg Documented by: Albuterol Sulfate (Ventolin Hfa Inhaler -) 2 puff IH Q4H PRN PRN Reason: SHORT OF BREATH/WHEEZING Amoxicillin/Clavulanate Potassium (Augmentin - 875mg Tablet) 1 tab PO BID@0800,1730 [facility] Last Admin: 09/30/19 08:37 Dose: 1 tab Documented by: Apixaban (Eliquis -) 5 mg PO BID [facility] Last Admin: 09/30/19 10:15 Dose: 5 mg Documented by: Ascorbic Acid (Vitamin C -) 500 mg PO DAILY [facility] Last Admin: 09/30/19 10:15 Dose: 500 mg Documented by: Atorvastatin Calcium (Lipitor -) 40 mg PO HS [facility] Last Admin: 09/29/19 21:29 Dose: 40 mg Documented by: Diltiazem HCl (Cardizem Cd -) 180 mg PO DAILY [facility] Last Admin: 09/30/19 10:15 Dose: 180 mg Documented by: Furosemide (Lasix -) 20 mg PO DAILY [facility] Last Admin: 09/30/19 10:15 Dose: 20 mg Documented by: Methylprednisolone Sodium Succinate (Solu-Medrol -) 20 mg IVPUSH BID [facility] Last Admin: 09/30/19 10:14 Dose: 20 mg Documented by: Metoprolol Succinate (Toprol Xl -) 100 mg PO BID [facility] Last Admin: 09/30/19 10:15 Dose: 100 mg Documented by: Pantoprazole Sodium (Protonix -) 40 mg PO DAILY [facility] Last Admin: 09/30/19 10:15 Dose: 40 mg Documented by: Zinc Sulfate (Orazinc -) 220 mg PO BID [facility] Last Admin: 09/30/19 10:15 Dose: 220 mg Documented by: - Objective Vital Signs: Vital Signs Temperature 98.1 F 09/30/19 10:00 Pulse Rate 81 09/30/19 10:00 Respiratory Rate 20 09/30/19 10:00 Blood Pressure 122/69 09/30/19 10:00 O2 Sat by Pulse Oximetry (%) 98 09/30/19 10:00 Constitutional: Yes: No Distress, Calm, Thin Neck: Yes: Supple Cardiovascular: Yes: Regular Rate and Rhythm Respiratory: Yes: Regular, Diminished, On Nasal O2 Gastrointestinal: Yes: Normal Bowel Sounds, Soft Edema: No Labs: CBC, BMP 09/25/19 06:14 09/26/19 06:00 INR, PTT INR 1.97 (0.83-1.09) H 09/23/19 18:40 - ....Imaging EKG: Report Reviewed (Tele: Rate-controlled aflutter) Assessment/Plan Problem List - Problems (1) Acute on chronic diastolic (congestive) heart failure Code(s): I50.33 - ACUTE ON CHRONIC DIASTOLIC (CONGESTIVE) HEART FAILURE (2) Aortic valve stenosis Code(s): I35.0 - NONRHEUMATIC AORTIC (VALVE) STENOSIS Qualifiers: Cardiac valve disease etiology: nonrheumatic Qualified Code(s): I35.0 - Nonrheumatic aortic (valve) stenosis (3) Atrial flutter Code(s): I48.92 - UNSPECIFIED ATRIAL FLUTTER Qualifiers: Atrial flutter type: unspecified Qualified Code(s): I48.92 - Unspecified at rial flutter (4) CAD (coronary artery disease) Code(s): I25.10 - ATHSCL HEART DISEASE OF [place] CORONARY ARTERY W/O ANG PCTRS Qualifiers: Coronary Disease-Associated Artery/Lesion type: [place] artery [place] vs. transplanted heart: [place] heart Associated angina: without angina Qualified Code(s): I25.10 - Atherosclerotic heart disease of [place] coronary artery without angina pectoris (5) HTN (hypertension) Code(s): I10 - ESSENTIAL (PRIMARY) HYPERTENSION Qualifiers: Hypertension type: essential hypertension (6) Hx of CABG Code(s): Z95.1 - PRESENCE OF AORTOCORONARY BYPASS GRAFT (7) Hypercholesterolemia Code(s): E78.00 - PURE HYPERCHOLESTEROLEMIA, UNSPECIFIED (8) S/P AVR (aortic valve replacement) Code(s): Z95.2 - PRESENCE OF PROSTHETIC HEART VALVE (9) S/P left atrial appendage ligation Code(s): Z98.890 - OTHER SPECIFIED POSTPROCEDURAL STATES (10) Suspected 2019 novel coronavirus infection Code(s): Z20.828 - CONTACT W AND EXPOSURE TO OTH VIRAL COMMUNICABLE DISEASES Assessment/Plan Echo 09/03/2019 Post-op septal motion, normal LVEF 50-55%, mod cLVH, normal RV size and fxn, mild LAE, mild MR, TR, bioAVR, mild AR, restrictive physiology Echocardiography October 12, 2018 revealed mild degree of concentric left ventricular hypertrophy with normal left ventricular systolic function and estimated LVEF between 65-70%, mild left atrial dilatation, normal right ventricular size and systolic function, aortic valve bioprosthesis with no aortic valve insufficiency, moderately dilated ascending aorta, mild thickening of the mitral valve leaflets with mild mitral valve regurgitation, mild to moderate tricuspid valve regurgitation with calculated RVSP of [address]: Small-moderate right and very small left effusion, pulm edema TAA 3.9 cm 1. Clinical presentation is consistent with chronic class I-II NYHA classification LV diastolic heart failure, no evidence of acute decompensation- as outlined in the initial consultation chest x-ray findings related to patient's recent coronavirus/COVID 19 pneumonitis- elevated BNP level related to patient's chronic heart failure syndrome and persistence of atrial arrhythmia/atrial flutter 2. History of a recent acute hypoxic respiratory failure related to bronch opneumonia with probable sepsis syndrome, coronavirus/COVID 19 3. Persistent atrial flutter with periods rapid ventricular response [id number] score of 5 on DOAC's/Eliquis 4. CAD post CABG with evidence of demand ischemia related to the above-noted clinical presentation angina pectoris 5. Aortic valve stenosis post SAVR/bio-prosthesis- with LA appendage ligation 6. Hypertensive cardiovascular disease 7. Hypercholesterolemia 8. History of altered mental status etiology of which was unclear- prior history of clinical depression 9. History of bacteremia- endocarditis unlikely 10. Anemia PLAN: 1. Continue Toprol XL 100 bid with dose titration as needed hemodynamics permitting; use prn IV 5mg 2. Increased Cardizem CD 180 qd with dose titration as needed hemodynamics permitting 3. Continue Atorvastatin 40 qd 4. Continue Eliquis 5 bid 5. Continue Lasix 20 po qd with monitoring of diuretic response, renal function and electrolytes 6. As outlined in the prior notes from recent hospitalization recommend early intervention for management of the above-noted recurrent/persistent atrial flutter- synchronized elective cardioversion- pending improvement of his respi ratory status 7. Oral steroid taper with GI protection, BD, empiric abx, O2 to keep SpO2 >90%, PT as tolerated
--- NOTE | 2019-09-30 12:58 | PN ---
Progress Note (short form) - Note Progress Note: pt examined today appears comfortable denies SOB appears depressed appears tired Vital Signs - 24 hr 09/29/19 09/29/19 09/29/19 14:09 18:00 21:00 Temperature 98.6 F 97.6 F Pulse Rate 84 83 Respiratory 16 17 Rate Blood Pressure 115/65 121/72 O2 Sat by Pulse 97 97 Oximetry (%) 09/29/19 09/30/19 09/30/19 22:00 02:00 06:00 Temperature 97.7 F 97.7 F 98.4 F Pulse Rate 83 81 80 Respiratory 20 20 20 Rate Blood Pressure 110/68 118/71 119/66 O2 Sat by Pulse 97 Oximetry (%) 09/30/19 09/30/19 09:00 10:00 Temperature 98.1 F Pulse Rate 81 Respiratory 20 20 Rate Blood Pressure 122/69 O2 Sat by Pulse 98 98 Oximetry (%) Current Medications Generic Name Dose Route Start Last Admin Trade Name Freq PRN Reason Stop Dose Admin Acetaminophen 650 mg 09/24/19 10:05 09/24/19 11:15 Tylenol - PO 650 mg Q6H PRN Administration FEVER Albuterol Sulfate 2 puff 09/24/19 01:07 Ventolin Hfa Inhaler - IH Q4H PRN SHORT OF BREATH/WHEEZING Amoxicillin/Clavulanate Potassium 1 tab 09/27/19 17:30 09/30/19 08:37 Augmentin - 875mg Tablet PO 1 tab BID@0800,1730 MAGI Administration Apixaban 5 mg 09/24/19 10:00 09/30/19 10:15 Eliquis - PO 5 mg BID MAGI Administration Atorvastatin Calcium 40 mg 09/24/19 22:00 09/29/19 21:29 Lipitor - PO 40 mg HS MAGI Administration Diltiazem HCl 180 mg 09/29/19 15:45 09/30/19 10:15 Cardizem Cd - PO 180 mg DAILY MAGI Administration Furosemide 20 mg 09/29/19 10:00 09/30/19 10:15 Lasix - PO 20 mg DAILY MAGI Administration Metoprolol Succinate 100 mg 09/24/19 10:00 09/30/19 10:15 Toprol Xl - PO 100 mg BID MAGI Administration Pantoprazole Sodium 40 mg 09/24/19 10:00 09/30/19 10:15 Protonix - PO 40 mg DAILY MAGI Administration Prednisone 20 mg 10/01/19 10:00 Deltasone - PO DAILY MAGI S1 S2 Irregular Lungs decreased breath sounds Abd- soft, NT No edema A/P Fever, pneumonitis CHF decompensation Aflutter -- COVID negative -- iv lasix-->change to PO -- on steroids-- taper -- O2 -- pt remains afebrile -- he did not have positive COVID serologies during his previous admissions here -- check inflammatory markers-- decreasing -- spoke with son-- pt is anxious -- spoke with Psychiatry -- Dr Medina--> concerning about his anxiety and depression--->she would like to correct his A flutter , pneumonitis- instead of giving him psychotropic meds -- increased his cardizem after speaking with DR Esqueda -- dc planning dc zinc and vit C check labs today Problem List - Problems (1) Acute on chronic diastolic (congestive) heart failure Code(s): I50.33 - ACUTE ON CHRONIC DIASTOLIC (CONGESTIVE) HEART FAILURE (2) Acute respiratory failure with hypoxia Code(s): J96.01 - ACUTE RESPIRATORY FAILURE WITH HYPOXIA (3) Atrial fibrillation Code(s): I48.91 - UNSPECIFIED ATRIAL FIBRILLATION (4) GERD (gastroesophageal reflux disease) Code(s): K21.9 - GASTRO-ESOPHAGEAL REFLUX DISEASE WITHOUT ESOPHAGITIS (5) HTN (hypertension) Code(s): I10 - ESSENTIAL (PRIMARY) HYPERTENSION Qualifiers: Hypertension type: essential hypertension Qualified Code(s): I10 - Essential (primary) hypertension (6) Suspected 2019 novel coronavirus infection Code(s): Z20.828 - CONTACT W AND EXPOSURE TO [facility] VIRAL COMMUNICABLE DISEASES
--- NOTE | 2019-09-30 13:09 | PN ---
Progress Note (short form) - Note Progress Note: PULMONARY Denies shortness of breath. No fevers/chills. Less cough. Vital Signs Period Temp Pulse Resp BP Sys/Amador Pulse Ox Last 24 Hr 97.6 F-98.6 F 80-84 16-20 110-122/65-72 97-98 Gen: NAD at rest Heart: RRR Lung: decreased breath sounds at the bases Abd: soft, nontender Ext: no edema CBC, BMP 09/25/19 06:14 09/26/19 06:00 Active Medications Acetaminophen (Tylenol -) 650 mg PO Q6H PRN PRN Reason: FEVER Last Admin: 09/24/19 11:15 Dose: 650 mg Documented by: Albuterol Sulfate (Ventolin Hfa Inhaler -) 2 puff IH Q4H PRN PRN Reason: SHORT OF BREATH/WHEEZING Amoxicillin/Clavulanate Potassium (Augmentin - 875mg Tablet) 1 tab PO BID @0800,1730 [facility] Last Admin: 09/30/19 08:37 Dose: 1 tab Documented by: Apixaban (Eliquis -) 5 mg PO BID [facility] Last Admin: 09/30/19 10:15 Dose: 5 mg Documented by: Atorvastatin Calcium (Lipitor -) 40 mg PO HS [facility] Last Admin: 09/29/19 21:29 Dose: 40 mg Documented by: Diltiazem HCl (Cardizem Cd -) 180 mg PO DAILY [facility] Last Admin: 09/30/19 10:15 Dose: 180 mg Documented by: Furosemide (Lasix -) 20 mg PO DAILY [facility] Last Admin: 09/30/19 10:15 Dose: 20 mg Documented by: Metoprolol Succinate (Toprol Xl -) 100 mg PO BID [facility] Last Admin: 09/30/19 10:15 Dose: 100 mg Documented by: Pantoprazole Sodium (Protonix -) 40 mg PO DAILY [facility] Last Admin: 09/30/19 10:15 Dose: 40 mg Documented by: Prednisone (Deltasone -) 20 mg PO DAILY [facility] A/P Acute Hypoxic Respiratory Failure Suspect COVID19 Pneumonitis LV Diastolic Dysfunction Atrial Fibrillation HTN Hyperlipidemia - prednisone taper - O2 to keep SpO2 >90% - trend inflammatory markers - rate control - continue anticoagulation
[2019-09-30 17:12] LABS: HEMATOCRIT 33.5 % (35.4-49); HEMOGLOBIN 10.8 GM/dL (11.7-16.9); MCH 29.9 pg (25.7-33.7); MCHC 32.2 g/dl (32.0-35.9); MEAN CELL VOLUME 92.9 fl (80-96); MEAN PLT VOLUME 7.7 fl (7.5-11.1); PLATELET COUNT 312 K/MM3 (134-434); RDW 16.3 % (11.9-15.9)
[2019-09-30 17:36] LABS: BLOOD UREA NITROGEN 30.7 mg/dL (7-18); CALCIUM 7.4 mg/dL (8.5-10.1); POTASSIUM 3.7 mmol/L (3.5-5.1)
[2019-09-30] MEDS: ATORVASTATIN CA 40 MG TABLET (FP) PO SCH (21:44)
[2019-10-01] MEDS: ALBUTEROL SO4 HFA INHALER IH PRN (04:10)
--- NOTE | 2019-10-01 07:57 | PN ---
Progress Note, Physician History of Present Illness: Reports improved dyspnea, denies palpitations, chest discomfort (remains in rate-controlled Atrial flutter with 4:1 conduction) - Current Medication List Current Medications: Active Medications Acetaminophen (Tylenol -) 650 mg PO Q6H PRN PRN Reason: FEVER Last Admin: 09/24/19 11:15 Dose: 650 mg Documented by: Albuterol Sulfate (Ventolin Hfa Inhaler -) 2 puff IH Q4H PRN PRN Reason: SHORT OF BREATH/WHEEZING Last Admin: 10/01/19 04:10 Dose: 2 puff Documented by: Amoxicillin/Clavulanate Potassium (Augmentin - 875mg Tablet) 1 tab PO BID @0800,1730 [facility] Last Admin: 09/30/19 17:26 Dose: 1 tab Documented by: Apixaban (Eliquis -) 5 mg PO BID [facility] Last Admin: 09/30/19 21:44 Dose: 5 mg Documented by: Atorvastatin Calcium (Lipitor -) 40 mg PO HS [facility] Last Admin: 09/30/19 21:44 Dose: 40 mg Documented by: Diltiazem HCl (Cardizem Cd -) 180 mg PO DAILY [facility] Last Admin: 09/30/19 10:15 Dose: 180 mg Documented by: Furosemide (Lasix -) 20 mg PO DAILY [facility] Last Admin: 09/30/19 10:15 Dose: 20 mg Documented by: Metoprolol Succinate (Toprol Xl -) 100 mg PO BID [facility] Last Admin: 09/30/19 21:48 Dose: Not Given Documented by: Pantoprazole Sodium (Protonix -) 40 mg PO DAILY [facility] Last Admin: 09/30/19 10:15 Dose: 40 mg Documented by: Prednisone (Deltasone -) 20 mg PO DAILY [facility] - Objective Vital Signs: Vital Signs Temperature 97.6 F 10/01/19 06:00 Pulse Rate 66 10/01/19 06:00 Respiratory Rate 20 10/01/19 06:00 Blood Pressure 120/58 L 10/01/19 06:00 O2 Sat by Pulse Oximetry (%) 90 L 10/01/19 06:00 Constitutional: Yes: No Distress, Calm, Thin Neck: Yes: Supple Cardiovascular: Yes: Regular Rate and Rhythm Respiratory: Yes: Regular, Diminished, On Nasal O2 Gastrointestinal: Yes: Normal Bowel Sounds, Soft Edema: No Labs: CBC, BMP 09/30/19 16:00 09/30/19 16:00 INR, PTT INR 1.97 (0.83-1.09) H 09/23/19 18:40 - ....Imaging EKG: Report Reviewed (Tele: Rate-controlled aflutter) Assessment/Plan Problem List - Problems (1) Acute on chronic diastolic (congestive) heart failure Code(s): I50.33 - ACUTE ON CHRONIC DIASTOLIC (CONGESTIVE) HEART FAILURE (2) Aortic valve stenosis Code(s): I35.0 - NONRHEUMATIC AORTIC (VALVE) STENOSIS Qualifiers: Cardiac valve disease etiology: nonrheumatic Qualified Code(s): I35.0 - Nonrheumatic aortic (valve) stenosis (3) Atrial flutter Code(s): I48.92 - UNSPECIFIED ATRIAL FLUTTER Qualifiers: Atrial flutter type: unspecified Qualified Code(s): I48.92 - Unspecified atrial flutter (4) CAD (coronary artery disease) Code(s): I25.10 - ATHSCL HEART DISEASE OF [place] CORONARY ARTERY W/O ANG PCTRS Qualifiers: Coronary Disease-Associated Artery/Lesion type: [place] artery [place] vs. transplanted heart: [place] heart Associated angina: without angina Qualified Code(s): I25.10 - Atherosclerotic heart disease of [place] coronary artery without angina pectoris (5) HTN (hypertension) Code(s): I10 - ESSENTIAL (PRIMARY) HYPERTENSION Qualifiers: Hypertension type: essential hypertension (6) Hx of CABG Code(s): Z95.1 - PRESENCE OF AORTOCORONARY BYPASS GRAFT (7) Hypercholesterolemia Code(s): E78.00 - PURE HYPERCHOLESTEROLEMIA, UNSPECIFIED (8) S/P AVR (aortic valve replacement) Code(s): Z95.2 - PRESENCE OF PROSTHETIC HEART VALVE (9) S/P left atrial appendage ligation Code(s): Z98.890 - OTHER SPECIFIED POSTPROCEDURAL STATES (10) Suspected 2019 novel coronavirus infection Code(s): Z20.828 - CONTACT W AND EXPOSURE TO OTH VIRAL COMMUNICABLE DISEASES Assessment/Plan Echo 09/03/2019 Post-op septal motion, normal LVEF 50-55%, mod cLVH, normal RV size and fxn, mild LAE, mild MR, TR, bioAVR, mild AR, restrictive physiology Echocardiography October 12, 2018 revealed mild degree of concentric left ventricular hypertrophy with normal left ventricular systolic function and estimated LVEF between 65-70%, mild left atrial dilatation, normal right ventricular size and systolic function, aortic valve bioprosthesis with no aortic valve insufficiency, moderately dilated ascending aorta, mild thickening of the mitral valve leaflets with mild mitral valve regurgitation, mild to moderate tricuspid valve regurgitation with calculated RVSP of [address]: Small-moderate right and very small left effusion, pulm edema TAA 3.9 cm 1. Clinical presentation is consistent with chronic class I-II NYHA classification LV diastolic heart failure, no evidence of acute decompensation- as outlined in the initial consultation chest x-ray findings related to patient's recent coronavirus/COVID 19 pneumonitis- elevated BNP level related to patient's chronic heart failure syndrome and persistence of atrial arrhythmia/atrial flutter 2. History of a recent acute hypoxic respiratory failure related to bronchopneumonia with probable sepsis syndrome, coronavirus/COVID 19 3. Persistent atrial flutter with periods rapid ventricular response [id number] score of 5 on DOAC's/Eliquis 4. CAD post CABG with evidence of demand ischemia related to the above-noted clinical presentation angina pectoris 5. Aortic valve stenosis post SAVR/bio-prosthesis- with LA appendage ligation 6. Hypertensive cardiovascular disease 7. Hypercholesterolemia 8. History of altered mental status etiology of which was unclear- prior history of clinical depression 9. History of bacteremia- endocarditis unlikely 10. Anemia PLAN: 1. Continue Toprol XL 100 bid with dose titration as needed hemodynamics permitting; use prn IV 5mg 2. Increased Cardizem CD 180 qd with dose titration as needed hemodynamics permitting 3. Continue Atorvastatin 40 qd 4. Continue Eliquis 5 bid 5. Continue Lasix 20 po qd with monitoring of diuretic response, renal function and electrolytes 6. As outlined in the prior notes from recent hospitalization recommend early intervention for management of the above-noted recurrent/persistent atrial flutter- synchronized elective cardioversion- pending improvement of his respiratory status 7. Oral steroid taper with GI protection, BD, empiric abx, O2 to keep SpO2 >90%, PT as tolerated
[2019-10-01] MEDS: APIXABAN 5 MG TABLET PO SCH ×2 (09:52→22:14)
[2019-10-01] MEDS: PANTOPRAZOLE 40 MG TABLET PO SCH (09:52)
[2019-10-01] MEDS: FUROSEMIDE 20 MG TABLET (FP) PO SCH (09:52)
[2019-10-01] MEDS: AMOX TR/POT CLAV 875MG/125MG TABLETS (FP) PO SCH ×2 (09:52→17:25)
[2019-10-01] MEDS: predniSONE 20 MG TABLET (UD) PO SCH (09:52)
--- NOTE | 2019-10-01 10:34 | PN ---
Progress Note, Physician History of Present Illness: pulmonary awake, c/o increased sob,hypoxic on nasal o2 sat 88% - Current Medication List Current Medications: Active Medications Acetaminophen (Tylenol -) 650 mg PO Q6H PRN PRN Reason: FEVER Last Admin: 09/24/19 11:15 Dose: 650 mg Documented by: Albuterol Sulfate (Ventolin Hfa Inhaler -) 2 puff IH Q4H PRN PRN Reason: SHORT OF BREATH/WHEEZING Last Admin: 10/01/19 04:10 Dose: 2 puff Documented by: Amoxicillin/Clavulanate Potassium (Augmentin - 875mg Tablet) 1 tab PO BID@0800,1730 [facility] Last Admin: 10/01/19 09:52 Dose: 1 tab Documented by: Apixaban (Eliquis -) 5 mg PO BID [facility] Last Admin: 10/01/19 09:52 Dose: 5 mg Documented by: Atorvastatin Calcium (Lipitor -) 40 mg PO HS [facility] Last Admin: 09/30/19 21:44 Dose: 40 mg Documented by: Diltiazem HCl (Cardizem Cd -) 180 mg PO DAILY [facility] Last Admin: 10/01/19 09:52 Dose: 180 mg Documented by: Furosemide (Lasix -) 20 mg PO DAILY [facility] Last Admin: 10/01/19 09:52 Dose: 20 mg Documented by: Metoprolol Succinate (Toprol Xl -) 100 mg PO BID [facility] Last Admin: 10/01/19 09:52 Dose: 100 mg Documented by: Pantoprazole Sodium (Protonix -) 40 mg PO DAILY [facility] Last Admin: 10/01/19 09:52 Dose: 40 mg Documented by: Prednisone (Deltasone -) 20 mg PO DAILY [facility] Last Admin: 10/01/19 09:52 Dose: 20 mg Documented by: - Objective Vital Signs: Vital Signs Temperature 98.1 F 10/01/19 09:19 Pulse Rate 74 10/01/19 09:19 Respiratory Rate 19 10/01/19 09:19 Blood Pressure 135/72 10/01/19 09:19 O2 Sat by Pulse Oximetry (%) 88 L 10/01/19 09:19 Constitutional: Yes: Calm, Thin Eyes: Yes: WNL HENT: Yes: WNL Neck: Yes: WNL Cardiovascular: Yes: Pulse Irregular, S1, S2 Respiratory: Yes: Rales (scattered crackles) Gastrointestinal: Yes: Normal Bowel Sounds, Soft Extremities: Yes: WNL Edema: No Labs: CBC, BMP 09/30/19 16:00 Assessment/Plan Assessment/Plan Acute Hypoxic Respiratory Failure i Suspect COVID19 Pneumonitis PCR negative LV Diastolic Dysfunction Atrial Fibrillation HTN Hyperlipidemia - prednisone - lasix - O2 to keep SpO2 >90% - trend inflammatory markers - rate control - anticoagulation - COVID PCR not detected - chest x-ray today DR DAVIS
--- NOTE | 2019-10-01 11:18 | PN ---
Progress Note, Physician History of Present Illness: pt seen/ examined chart reviewed awake/ On VM sob last night - Current Medication List Current Medications: Active Medications Acetaminophen (Tylenol -) 650 mg PO Q6H PRN PRN Reason: FEVER Last Admin: 09/24/19 11:15 Dose: 650 mg Documented by: Albuterol Sulfate (Ventolin Hfa Inhaler -) 2 puff IH Q4H PRN PRN Reason: SHORT OF BREATH/WHEEZING Last Admin: 10/01/19 04:10 Dose: 2 puff Documented by: Amoxicillin/Clavulanate Potassium (Augmentin - 875mg Tablet) 1 tab PO BID@0800,1730 [facility] Last Admin: 10/01/19 09:52 Dose: 1 tab Documented by: Apixaban (Eliquis -) 5 mg PO BID [facility] Last Admin: 10/01/19 09:52 Dose: 5 mg Documented by: Atorvastatin Calcium (Lipitor -) 40 mg PO HS [facility] [place] Last Admin: 09/30/19 21:44 Dose: 40 mg Documented by: Diltiazem HCl (Cardizem Cd -) 180 mg PO DAILY [facility] Last Admin: 10/01/19 09:52 Dose: 180 mg Documented by: Furosemide (Lasix -) 20 mg PO DAILY [facility] [place] Last Admin: 10/01/19 09:52 Dose: 20 mg Documented by: Metoprolol Succinate (Toprol Xl -) 100 mg PO BID [facility] [place] Last Admin: 10/01/19 09:52 Dose: 100 mg Documented by: Pantoprazole Sodium (Protonix -) 40 mg PO DAILY [facility] [place] Last Admin: 10/01/19 09:52 Dose: 40 mg Documented by: Prednisone (Deltasone -) 20 mg PO DAILY [facility] [place] Last Admin: 10/01/19 09:52 Dose: 20 mg Documented by: - Objective Vital Signs: Vital Signs Temperature 98.1 F 10/01/19 09:19 Pulse Rate 74 10/01/19 09:19 Respiratory Rate 19 10/01/19 09:19 Blood Pressure 135/72 10/01/19 09:19 O2 Sat by Pulse Oximetry (%) 88 L 10/01/19 09:19 Constitutional: Yes: No Distress Eyes: Yes: Conjunctiva Clear Neck: Yes: Supple Cardiovascular: Yes: Pulse Irregular Respiratory: Yes: Diminished Gastrointestinal: Yes: Soft Edema: No Neurological: Yes: Alert Psychiatric: Yes: Alert Labs: CBC, BMP 09/30/19 16:00 09/30/19 16:00 INR, PTT INR 1.97 (0.83-1.09) H 09/23/19 18:40 Problem List - Problems (1) Acute respiratory failure with hypoxia Code(s): J96.01 - ACUTE RESPIRATORY FAILURE WITH HYPOXIA (2) Atrial fibrillation Code(s): I48.91 - UNSPECIFIED ATRIAL FIBRILLATION (3) CAD (coronary artery disease) Code(s): I25.10 - ATHSCL HEART DISEASE OF [place] CORONARY ARTERY W/O ANG PCTRS Qualifiers: Coronary Disease-Associated Artery/Lesion type: [place] artery [place] vs. transplanted heart: [place] heart Associated angina: without angina Qualified Code(s): I25.10 - Atherosclerotic heart disease of [place] coronary artery without angina pectoris (4) History of depression Code(s): Z86.59 - PERSONAL HISTORY OF OTHER MENTAL AND BEHAVIORAL DISORDERS (5) S/P AVR (aortic valve replacement) Code(s): Z95.2 - PRESENCE OF PROSTHETIC HEART VALVE (6) Suspected 2019 novel coronavirus infection Code(s): Z20.828 - CONTACT W AND EXPOSURE TO OTH VIRAL COMMUNICABLE DISEASES Assessment/Plan Worse today + dysnea Continue present care Steroids off antibiotics monitor cxr d/w Dr. Scott / Nursing staff
[2019-10-01] MEDS ORDERED: FUROSEMIDE 40 MG/4 ML INJECTABLE VIAL IVPUSH ONE (17:45)
[2019-10-01] MEDS: ATORVASTATIN CA 40 MG TABLET (FP) PO SCH (22:14)
[2019-10-02 08:19] LABS: BASO % 0.3 % (0-2.0); EOS % 0.9 % (0-4.5); HEMATOCRIT 37.5 % (35.4-49); HEMOGLOBIN 11.9 GM/dL (11.7-16.9); LYMPH % 8.4 % (8-40); MCH 29.1 pg (25.7-33.7); MCHC 31.9 g/dl (32.0-35.9); MEAN CELL VOLUME 91.4 fl (80-96); MEAN PLT VOLUME 7.7 fl (7.5-11.1); MONO % 1.9 % (3.8-10.2); NEUT % 88.5 % (42.8-82.8); PLATELET COUNT 279 K/MM3 (134-434); RDW 16.1 % (11.9-15.9); WHITE BLOOD COUNT 17.5 K/mm3 (4.0-10.0)
[2019-10-02 08:22] LABS: BLOOD UREA NITROGEN 24.1 mg/dL (7-18); CALCIUM 7.3 mg/dL (8.5-10.1); CREATININE 0.8 mg/dL (0.55-1.3); POTASSIUM 3.6 mmol/L (3.5-5.1)
[2019-10-02] MEDS: predniSONE 20 MG TABLET (UD) PO SCH (09:19)
[2019-10-02] MEDS: APIXABAN 5 MG TABLET PO SCH ×2 (09:19→21:11)
[2019-10-02] MEDS: FUROSEMIDE 20 MG TABLET (FP) PO SCH (09:20)
[2019-10-02] MEDS: AMOX TR/POT CLAV 875MG/125MG TABLETS (FP) PO SCH ×2 (09:20→18:23)
[2019-10-02] MEDS: PANTOPRAZOLE 40 MG TABLET PO SCH (09:20)
--- NOTE | 2019-10-02 10:32 | PN ---
Progress Note, Physician Chief Complaint: Events noted Currently on NC. Tolerating therapy History of Present Illness: Patient was seen and examined. Awake and alert. Chart was reviewed Denies chest pain or palpitations - Current Medication List Current Medications: Active Medications Acetaminophen (Tylenol -) 650 mg PO Q6H PRN PRN Reason: FEVER Last Admin: 09/24/19 11:15 Dose: 650 mg Documented by: Albuterol Sulfate (Ventolin Hfa Inhaler -) 2 puff IH Q4H PRN PRN Reason: SHORT OF BREATH/WHEEZING Last Admin: 10/01/19 04:10 Dose: 2 puff Documented by: Amoxicillin/Clavulanate Potassium (Augmentin - 875mg Tablet) 1 tab PO BID@0800,1730 [facility] Last Admin: 10/02/19 09:20 Dose: 1 tab Documented by: Apixaban (Eliquis -) 5 mg PO BID [facility] Last Admin: 10/02/19 09:19 Dose: 5 mg Documented by: Atorvastatin Calcium (Lipitor -) 40 mg PO [facility] Last Admin: 10/01/19 22:14 Dose: 40 mg Documented by: Diltiazem HCl (Cardizem Cd -) 180 mg PO DAILY [facility] Last Admin: 10/02/19 09:19 Dose: 180 mg Documented by: Furosemide (Lasix -) 20 mg PO DAILY [facility] Last Admin: 10/02/19 09:20 Dose: 20 mg Documented by: Metoprolol Succinate (Toprol Xl -) 100 mg PO BID [facility] Last Admin: 10/02/19 09:19 Dose: 100 mg Documented by: Pantoprazole Sodium (Protonix -) 40 mg PO DAILY [facility] Last Admin: 10/02/19 09:20 Dose: 40 mg Documented by: Prednisone (Deltasone -) 20 mg PO DAILY [facility] Last Admin: 10/02/19 09:19 Dose: 20 mg Documented by: - Objective Vital Signs: Vital Signs Temperature 98.1 F 10/02/19 09:22 Pulse Rate 102 H 10/02/19 09:22 Respiratory Rate 25 H 10/02/19 09:22 Blood Pressure 127/71 10/02/19 09:22 O2 Sat by Pulse Oximetry (%) 96 10/02/19 09:22 Eyes: Yes: PERRL HENT: Yes: Atraumatic Neck: Yes: Supple Cardiovascular: Yes: Tachycardia, S1, S2 Respiratory: Yes: Diminished Gastrointestinal: Yes: Normal Bowel Sounds, Soft. No: Tenderness Edema: No Additional Findings/Remarks: - Review of Systems Constitutional: denies: Chills, Fever Cardiovascular: denies Chest Pain, (+) Shortness of Breath. denies: Palp itations Respiratory: reports: SOB. denies: Cough, Hemoptysis, Orthopnea, PND Gastrointestinal: denies: Abdominal Pain, Constipation, Diarrhea, Melena, Nausea, Rectal Bleeding, Vomiting Neurological: denies: Dizziness, Headache, Seizure, Syncope Labs: CBC, BMP 10/02/19 06:43 10/02/19 06:43 Problem List - Problems (1) Acute on chronic diastolic (congestive) heart failure Code(s): I50.33 - ACUTE ON CHRONIC DIASTOLIC (CONGESTIVE) HEART FAILURE (2) Acute respiratory failure with hypoxia Code(s): J96.01 - ACUTE RESPIRATORY FAILURE WITH HYPOXIA (3) Aortic aneurysm Code(s): I71.9 - AORTIC ANEURYSM OF UNSPECIFIED SITE, WITHOUT RUPTURE (4) Atrial flutter Code(s): I48.92 - UNSPECIFIED ATRIAL FLUTTER Qualifiers: Atrial flutter type: unspecified Qualified Code(s): I48.92 - Unspecified atrial flutter (5) CAD (coronary artery disease) Code(s): I25.10 - ATHSCL HEART DISEASE OF [place] CORONARY ARTERY W/O ANG PCTRS Qualifiers: Coronary Disease-Associated Artery/Lesion type: [place] artery [place] vs. transplanted heart: [place] heart Associated angina: without angina Qualified Code(s): I25.10 - Atherosclerotic heart disease of [place] coronary artery without angina pectoris (6) GERD (gastroesophageal reflux disease) Code(s): K21.9 - GASTRO-ESOPHAGEAL REFLUX DISEASE WITHOUT ESOPHAGITIS (7) HTN (hypertension) Code(s): I10 - ESSENTIAL (PRIMARY) HYPERTENSION Qualifiers: Hypertension type: essential hypertension Qualified Code(s): I10 - Essential (primary) hypertension (8) Hypercholesterolemia Code(s): E78.00 - PURE HYPERCHOLESTEROLEMIA, UNSPECIFIED (9) S/P AVR (aortic valve replacement) Code(s): Z95.2 - PRESENCE OF PROSTHETIC HEART VALVE (10) S/P left atrial appendage ligation Code(s): Z98.890 - OTHER SPECIFIED POSTPROCEDURAL STATES (11) Suspected COVID-19 virus infection Code(s): Z20.828 - CONTACT W AND EXPOSURE TO H VIRAL COMMUNICABLE DISEASES Assessment/Plan 1. Clinical presentation is consistent with chronic class I-II NYHA classification LV diastolic heart failure, no evidence of acute decompensation 2. History of a recent acute hypoxic respiratory failure related to bronchopneumonia with probable sepsis syndrome, coronavirus/COVID 19 3. Persistent atrial flutter with periods rapid ventricular response [id number] score of 5 on DOAC/Eliquis 4. CAD s/p CABG with evidence of demand ischemia related to the above-noted clinical presentation angina pectoris 5. Aortic valve stenosis post SAVR/bioprosthesis - with LA appendage ligation 6. HTN 7. Hypercholesterolemia 8. History of altered mental status with underlying history of depression 9. History of bacteremia 10. Anemia PLAN: 1. Continue Toprol XL 100 mg BID with dose titration 2. Continue Cardizem CD 180 mg QD as tolerated 3. Continue Atorvastatin 40 mg QD 4. Continue Eliquis 5 mg BID 5. Continue Lasix 20 mg PO QD with monitoring renal function and electrolytes 6. Synchronized cardioversion if remains in atrial flutter and respiratory status stabilized. 7. Oral steroid taper with GI protection, bronchodilator, empiric antibiotic coverage and O2 to keep SpO2 >90% 8. PT as tolerated Further plans are to follow Phuc Dillon MD
[2019-10-02 11:55] LABS: ANISOCYTOSIS 1+; MACROCYTOSIS 0; OVALOCYTE 1+; PLATELET ESTIMATE NORMAL
--- NOTE | 2019-10-02 12:50 | PN ---
Progress Note, Physician History of Present Illness: pt seen/ examined chart reviewed awake/ On VM 50 percent-- sat 99 percent All f/u noted - Current Medication List Current Medications: Active Medications Acetaminophen (Tylenol -) 650 mg PO Q6H PRN PRN Reason: FEVER Last Admin: 09/24/19 11:15 Dose: 650 mg Documented by: Albuterol Sulfate (Ventolin Hfa Inhaler -) 2 puff IH Q4H PRN PRN Reason: SHORT OF BREATH/WHEEZING Last Admin: 10/01/19 04:10 Dose: 2 puff Documented by: Amoxicillin/Clavulanate Potassium (Augmentin - 875mg Tablet) 1 tab PO BID@0800,1730 [facility] Last Admin: 10/02/19 09:20 Dose: 1 tab Documented by: Apixaban (Eliquis -) 5 mg PO BID [facility] Last Admin: 10/02/19 09:19 Dose: 5 mg Documented by: Atorvastatin Calcium (Lipitor -) 40 mg PO HS [facility] Last Admin: 10/01/19 22:14 Dose: 40 mg Documented by: Diltiazem HCl (Cardizem Cd -) 180 mg PO DAILY [facility] Last Admin: 10/02/19 09:19 Dose: 180 mg Documented by: Furosemide (Lasix -) 20 mg PO DAILY [facility] Last Admin: 10/02/19 09:20 Dose: 20 mg Documented by: Metoprolol Succinate (Toprol Xl -) 100 mg PO BID [facility] Last Admin: 10/02/19 09:19 Dose: 100 mg Documented by: Pantoprazole Sodium (Protonix -) 40 mg PO DAILY [facility] Last Admin: 10/02/19 09:20 Dose: 40 mg Documented by: Prednisone (Deltasone -) 20 mg PO DAILY [facility] Last Admin: 10/02/19 09:19 Dose: 20 mg Documented by: - Objective Vital Signs: Vital Signs Temperature 98.1 F 10/02/19 09:22 Pulse Rate 102 H 10/02/19 09:22 Respiratory Rate 25 H 10/02/19 09:22 Blood Pressure 127/71 10/02/19 09:22 O2 Sat by Pulse Oximetry (%) 96 10/02/19 09:22 Constitutional: Yes: No Distress, Calm Eyes: Yes: Conjunctiva Clear Neck: Yes: Supple. No: Tenderness Cardiovascular: Yes: Regular Rate and Rhythm Respiratory: Yes: Diminished. No: Tachypnea Gastrointestinal: Yes: Soft Edema: No Neurological: Yes: Alert Labs: CBC, BMP 10/02/19 06:43 10/02/19 06:43 INR, PTT INR 1.97 (0.83-1.09) H 09/23/19 18:40 - ....Imaging Chest X-ray: Report Reviewed Problem List - Problems (1) Acute respiratory failure with hypoxia Code(s): J96.01 - ACUTE RESPIRATORY FAILURE WITH HYPOXIA (2) Atrial fibrillation Code(s): I48.91 - UNSPECIFIED ATRIAL FIBRILLATION (3) CAD (coronary artery disease) Code(s): I25.10 - ATHSCL HEART DISEASE OF [place] CORONARY ARTERY W/O ANG PCTRS Qualifiers: Coronary Disease-Associated Artery/Lesion type: [place] artery [place] vs. transplanted heart: [place] heart Associated angina: without angina Qualified Code(s): I25.10 - Atherosclerotic heart disease of [place] coronary artery without angina pectoris (4) History of depression Code(s): Z86.59 - PERSONAL HISTORY OF OTHER MENTAL AND BEHAVIORAL DISORDERS (5) S/P AVR (aortic valve replacement) Code(s): Z95.2 - PRESENCE OF PROSTHETIC HEART VALVE (6) Suspected 2019 novel coronavirus infection Code(s): Z20.828 - CONTACT W AND EXPOSURE TO OTH VIRAL COMMUNICABLE DISEASES Assessment/Plan Comfortaable Continue present care Steroids off antibiotics monitor Agree with ALsix decrease VM 35 percent Keep sat >90 will follow
--- NOTE | 2019-10-02 13:35 | PN ---
Progress Note (short form) - Note Progress Note: Mildly tachypneic on 50% VM. Congested cough. No acute events overnight. CXR: increasing congestive changes Intake & Output 09/29/19 09/30/19 10/01/19 10/02/19 23:59 23:59 23:59 23:59 Intake Total 1270 1755 930 120 Output Total 872 283 0365 Balance 320 1355 -1020 120 Weight 139 lb 136 lb Last Vital Signs Temp Pulse Resp BP Pulse Ox 98.1 F 102 H 25 H 127/71 96 10/02/19 09:22 10/02/19 09:22 10/02/19 09:22 10/02/19 09:22 10/02/19 09:22 Active Medications Acetaminophen (Tylenol -) 650 mg PO Q6H PRN PRN Reason: FEVER Last Admin: 09/24/19 11:15 Dose: 650 mg Documented by: Albuterol Sulfate (Ventolin Hfa Inhaler -) 2 puff IH Q4H PRN PRN Reason: SHORT OF BREATH/WHEEZING Last Admin: 10/01/19 04:10 Dose: 2 puff Documented by: Amoxicillin/Clavulanate Potassium (Augmentin - 875mg Tablet) 1 tab PO BID@0800,1730 [facility] Last Admin: 10/02/19 09:20 Dose: 1 tab Documented by: Apixaban (Eliquis -) 5 mg PO BID [facility] Last Admin: 10/02/19 09:19 Dose: 5 mg Documented by: Atorvastatin Calcium (Lipitor -) 40 mg PO HS [facility] Last Admin: 10/01/19 22:14 Dose: 40 mg Documented by: Diltiazem HCl (Cardizem Cd -) 180 mg PO DAILY [facility] Last Admin: 10/02/19 09:19 Dose: 180 mg Documented by: Furosemide (Lasix -) 20 mg PO DAILY [facility] Last Admin: 10/02/19 09:20 Dose: 20 mg Documented by: Metoprolol Succinate (Toprol Xl -) 100 mg PO BID [facility] Last Admin: 10/02/19 09:19 Dose: 100 mg Documented by: Pantoprazole Sodium (Protonix -) 40 mg PO DAILY [facility] Last Admin: 10/02/19 09:20 Dose: 40 mg Documented by: Prednisone (Deltasone -) 20 mg PO DAILY [facility] Last Admin: 10/02/19 09:19 Dose: 20 mg Documented by: Constitutional: Yes: Mildly tachypneic at rest, Thin Eyes: Yes: WNL HENT: Yes: WNL Neck: Yes: WNL Cardiovascular: Yes: Pulse Irregular, S1, S2 Respiratory: Yes: Rales (scattered crackles) Gastrointestinal: Yes: Normal Bowel Sounds, Soft Extremities: Yes: WNL Edema: No Labs: Laboratory Results - last 24 hr 09/30/19 10/01/19 10/01/19 16:00 13:33 13:33 WBC RBC Hgb Hct MCV MCH MCHC RDW Plt Count MPV Absolute Neuts (auto) Neutrophils % Neutrophils % (Manual) Band Neutrophils % Lymphocytes % Lymphocytes % (Manual) Monocytes % Monocytes % (Manual) Eosinophils % Eosinophils % (Manual) Basophils % Basophils % (Manual) Myelocytes % (Man) Promyelocytes % (Man) Blast Cells % (Manual) Nucleated RBC % Metamyelocytes Hypochromia Platelet Estimate Polychromasia Anisocytosis Macrocytosis Ovalocytes D-Dimer 759 H Sodium Potassium Chloride Carbon Dioxide Anion Gap BUN Creatinine Est GFR (CKD-EPI)AfAm Est GFR (CKD-EPI)NonAf Random Glucose Calcium Ferritin 1087.1 H LD Total 481 H C-Reactive Protein 1.0 H SARS-CoV-2 Ab Interp Non-reactive 10/02/19 10/02/19 06:43 06:43 WBC 17.5 H RBC 4.10 Hgb 11.9 Hct 37.5 MCV 91.4 MCH 29.1 MCHC 31.9 L RDW 16.1 H Plt Count 279 MPV 7.7 Absolute Neuts (auto) 15.5 H Neutrophils % 88.5 H Neutrophils % (Manual) 87.1 H Band Neutrophils % 0.0 Lymphocytes % 8.4 Lymphocytes % (Manual) 3.0 L D Monocytes % 1.9 L Monocytes % (Manual) 1 L Eosinophils % 0.9 D Eosinophils % (Manual) 1.0 D Basophils % 0.3 Basophils % (Manual) 0.0 Myelocytes % (Man) 4 H D Promyelocytes % (Man) 0 Blast Cells % (Manual) 0 Nucleated RBC % 0 Metamyelocytes 0 Hypochromia 0 Platelet Estimate Normal Polychromasia 0 Anisocytosis 1+ Macrocytosis 0 Ovalocytes 1+ D-Dimer Sodium 141 Potassium 3.6 Chloride 103 Carbon Dioxide 29 Anion Gap 9 BUN 24.1 H Creatinine 0.8 Est GFR (CKD-EPI)AfAm 99.87 Est GFR (CKD-EPI)NonAf 86.17 Random Glucose 102 Calcium 7.3 L Ferritin LD Total C-Reactive Protein SARS-CoV-2 Ab Interp Assessment/Plan Acute Hypoxic Respiratory Failure Suspect COVID19 Pneumonitis PCR negative LV Diastolic Dysfunction Atrial Fibrillation HTN Hyperlipidemia - prednisone - Continue lasix - O2 to keep SpO2 >90% - rate control - anticoagulation Dr Gonzalez
[2019-10-02] MEDS: ATORVASTATIN CA 40 MG TABLET (FP) PO SCH (21:11)
[2019-10-02] MEDS: ALBUTEROL SO4 HFA INHALER IH PRN (21:11)
[2019-10-03] MEDS ORDERED: FUROSEMIDE 40 MG/4 ML INJECTABLE VIAL IVPUSH ONE (08:22)
--- NOTE | 2019-10-03 08:27 | PN ---
Progress Note, Physician Chief Complaint: Events noted Tachypneic and complains of dyspnea on NC. Refused ventimask History of Present Illness: Patient was seen and examined. Awake and alert. Chart was reviewed Denies chest pain or palpitations, but complains of dyspnea. O2 sat low 90's but increases when he sits up - Current Medication List Current Medications: Active Medications Acetaminophen (Tylenol -) 650 mg PO Q6H PRN PRN Reason: FEVER Last Admin: 09/24/19 11:15 Dose: 650 mg Documented by: Albuterol Sulfate (Ventolin Hfa Inhaler -) 2 puff IH Q4H PRN PRN Reason: SHORT OF BREATH/WHEEZING Last Admin: 10/02/19 21:11 Dose: 2 puff Documented by: Amoxicillin/Clavulanate Potassium (Augmentin - 875mg Tablet) 1 tab PO BID@0800,1730 [facility] Last Admin: 10/02/19 18:23 Dose: 1 tab Documented by: Apixaban (Eliquis -) 5 mg PO BID [facility] Last Admin: 10/02/19 21:11 Dose: 5 mg Documented by: Atorvastatin Calcium (Lipitor -) 40 mg PO HS [facility] Last Admin: 10/02/19 21:11 Dose: 40 mg Documented by: Diltiazem HCl (Cardizem Cd -) 180 mg PO DAILY [facility] Last Admin: 10/02/19 09:19 Dose: 180 mg Documented by: Furosemide (Lasix -) 20 mg PO DAILY [facility] Last Admin: 10/02/19 09:20 Dose: 20 mg Documented by: Furosemide (Lasix Injection -) 40 mg IVPUSH ONCE ONE Stop: 10/03/19 08:23 Metoprolol Succinate (Toprol Xl -) 100 mg PO BID [facility] Last Admin: 10/02/19 21:11 Dose: 100 mg Documented by: Pantoprazole Sodium (Protonix -) 40 mg PO DAILY [facility] Last Admin: 10/02/19 09:20 Dose: 40 mg Documented by: Prednisone (Deltasone -) 20 mg PO DAILY [facility] Last Admin: 10/02/19 09:19 Dose: 20 mg Documented by: - Objective Vital Signs: Vital Signs Temperature 97.8 F 10/03/19 06:00 Pulse Rate 80 10/03/19 06:00 Respiratory Rate 20 10/03/19 06:00 Blood Pressure 133/70 10/03/19 06:00 O2 Sat by Pulse Oximetry (%) 91 L 10/03/19 06:00 Neck: Yes: Supple Cardiovascular: Yes: Pulse Irregular, S1, S2 Respiratory: Yes: Diminished Gastrointestinal: Yes: Normal Bowel Sounds, Soft. No: Tenderness Edema: No Additional Findings/Remarks: - Review of Systems Constitutional: denies: Chills, Fever Cardiovascular: denies Chest Pain, (+) Shortness of Breath. denies: Palpitations Respiratory: reports: SOB. denies: Cough, Hemoptysis, Orthopnea, PND Gastrointestinal: denies: Abdominal Pain, Constipation, Diarrhea, Melena, Nausea, Rectal Bleeding, Vomiting Neurological: denies: Dizziness, Headache, Seizure, Syncope Labs: CBC, BMP 10/02/19 06:43 10/02/19 06:43 INR, PTT INR 1.97 (0.83-1.09) H 09/23/19 18:40 Problem List - Problems (1) Acute on chronic diastolic (congestive) heart failure Code(s): I50.33 - ACUTE ON CHRONIC DIASTOLIC (CONGESTIVE) HEART FAILURE (2) Acute respiratory failure with hypoxia Code(s): J96.01 - ACUTE RESPIRATORY FAILURE WITH HYPOXIA (3) Aortic aneurysm Code(s): I71.9 - AORTIC ANEURYSM OF UNSPECIFIED SITE, WITHOUT RUPTURE (4) Atrial flutter Code(s): I48.92 - UNSPECIFIED ATRIAL FLUTTER Qualifiers: Atrial flutter type: unspecified Qualified Code(s): I48.92 - Unspecified atrial flutter (5) CAD (coronary artery disease) Code(s): I25.10 - ATHSCL HEART DISEASE OF [place] CORONARY ARTERY W/O ANG PCTRS Qualifiers: Coronary Disease-Associated Artery/Lesion type: [place] artery [place] vs. transplanted heart: [place] heart Associated angina: without angina Qualified Code(s): I25.10 - Atherosclerotic heart disease of [place] coronary artery w ithout angina pectoris (6) GERD (gastroesophageal reflux disease) Code(s): K21.9 - GASTRO-ESOPHAGEAL REFLUX DISEASE WITHOUT ESOPHAGITIS (7) HTN (hypertension) Code(s): I10 - ESSENTIAL (PRIMARY) HYPERTENSION Qualifiers: Hypertension type: essential hypertension Qualified Code(s): I10 - Essential (primary) hypertension (8) Hypercholesterolemia Code(s): E78.00 - PURE HYPERCHOLESTEROLEMIA, UNSPECIFIED (9) S/P AVR (aortic valve replacement) Code(s): Z95.2 - PRESENCE OF PROSTHETIC HEART VALVE (10) S/P left atrial appendage ligation Code(s): Z98.890 - OTHER SPECIFIED POSTPROCEDURAL STATES (11) Suspected COVID-19 virus infection Code(s): Z20.828 - CONTACT W AND EXPOSURE TO OTH VIRAL COMMUNICABLE DISEASES Assessment/Plan 1. Clinical presentation is consistent with chronic class I-II NYHA classification LV diastolic heart failure 2. History of a recent acute hypoxic respiratory failure related to bronchopneumonia with probable sepsis syndrome, coronavirus/COVID 19, currently not detected 3. Persistent atrial flutter with periods rapid ventricular response [id number] score of 5 on DOAC/Eliquis 4. CAD s/p CABG with evidence of demand ischemia related to the above-noted clinical presentation angina pectoris 5. Aortic valve stenosis post SAVR/bioprosthesis - with LA appendage ligation 6. HTN 7. Hypercholesterolemia 8. History of altered mental status with underlying history of depression 9. History of bacteremia 10. Anemia PLAN: 1. Continue Toprol XL 100 mg BID with dose titration 2. Continue Cardizem CD 180 mg QD as tolerated 3. Continue Atorvastatin 40 mg QD 4. Continue Eliquis 5 mg BID 5. Continue Lasix 20 mg PO QD with monitoring renal function and electrolytes. Dose of Lasix 40 mg IV to be given this am. Monitor I/Os 6. Pulmonary follow up 7. Synchronized cardioversion if remains in atrial flutter and respiratory status stabilized. 8. Oral steroid taper with GI protection, bronchodilator, empiric antibiotic coverage and O2 to keep SpO2 >90% 9. PT as tolerated Further plans are to follow Phuc Dillon MD
[2019-10-03] MEDS: AMOX TR/POT CLAV 875MG/125MG TABLETS (FP) PO SCH ×2 (09:36→18:24)
[2019-10-03] MEDS: APIXABAN 5 MG TABLET PO SCH ×2 (11:20→21:44)
[2019-10-03] MEDS: PANTOPRAZOLE 40 MG TABLET PO SCH (11:20)
[2019-10-03] MEDS: predniSONE 20 MG TABLET (UD) PO SCH (11:20)
[2019-10-03] MEDS: FUROSEMIDE 20 MG TABLET (FP) PO SCH (11:21)
[2019-10-03 12:30] LABS: ARTERIAL BLD GAS O2 SATURATION 91.9 mmHg (95-98); ARTERIAL BLOOD GAS BASE EXCESS 0.1 mmol/L (-2-2); ARTERIAL BLOOD GAS PO2 56.8 mmHg (80-100); ARTERIAL BLOOD GAS pH 7.482 (7.350-7.450)
[2019-10-03 12:31] LABS: ALLENS TEST POSITIVE
--- NOTE | 2019-10-03 12:52 | PN ---
Progress Note, Physician History of Present Illness: pt seen/ examined chart reviewed awake/ feeling depressed Refuses blood work On nasal cannula Saturating okay No distress - Current Medication List Current Medications: Active Medications Acetaminophen (Tylenol -) 650 mg PO Q6H PRN PRN Reason: FEVER Last Admin: 09/24/19 11:15 Dose: 650 mg Documented by: Albuterol Sulfate (Ventolin Hfa Inhaler -) 2 puff IH Q4H PRN PRN Reason: SHORT OF BREATH/WHEEZING Last Admin: 10/02/19 21:11 Dose: 2 puff Documented by: Amoxicillin/Clavulanate Potassium (Augmentin - 875mg Tablet) 1 tab PO BID@0800 ,1730 [facility] Last Admin: 10/03/19 09:36 Dose: Not Given Documented by: Apixaban (Eliquis -) 5 mg PO BID [facility] Last Admin: 10/03/19 11:20 Dose: 5 mg Documented by: Atorvastatin Calcium (Lipitor -) 40 mg PO HS [facility] Last Admin: 10/02/19 21:11 Dose: 40 mg Documented by: Diltiazem HCl (Cardizem Cd -) 180 mg PO DAILY [facility] Last Admin: 10/03/19 11:20 Dose: 180 mg Documented by: Furosemide (Lasix -) 20 mg PO DAILY [facility] Last Admin: 10/03/19 11:21 Dose: 20 mg Documented by: Metoprolol Succinate (Toprol Xl -) 100 mg PO BID [facility] Last Admin: 10/03/19 11:20 Dose: 100 mg Documented by: Pantoprazole Sodium (Protonix -) 40 mg PO DAILY [facility] Last Admin: 10/03/19 11:20 Dose: 40 mg Documented by: Prednisone (Deltasone -) 20 mg PO DAILY [facility] Last Admin: 10/03/19 11:20 Dose: 20 mg Documented by: - Objective Vital Signs: Vital Signs Temperature 97.8 F 10/03/19 06:00 Pulse Rate 80 10/03/19 06:00 Respiratory Rate 26 H 10/03/19 09:07 Blood Pressure 131/82 10/03/19 09:07 O2 Sat by Pulse Oximetry (%) 95 10/03/19 09:07 Constitutional: Yes: No Distress Neck: Yes: Supple Cardiovascular: Yes: Regular Rate and Rhythm Respiratory: Yes: Diminished Gastrointestinal: Yes: Soft Edema: No Psychiatric: Yes: Alert Labs: CBC, BMP 10/02/19 06:43 10/02/19 06:43 INR, PTT INR 1.97 (0.83-1.09) H 09/23/19 18:40 Problem List - Problems (1) Acute respiratory failure with hypoxia Code(s): J96.01 - ACUTE RESPIRATORY FAILURE WITH HYPOXIA (2) Atrial fibrillation Code(s): I48.91 - UNSPECIFIED ATRIAL FIBRILLATION (3) CAD (coronary artery disease) Code(s): I25.10 - ATHSCL HEART DISEASE OF [place] CORONARY ARTERY W/O ANG PCTRS Qualifiers: Coronary Disease-Associated Artery/Lesion type: [place] artery [place] vs. transplanted heart: [place] heart Associated angina: without angina Qualified Code(s): I25.10 - Atherosclerotic heart disease of [place] coronary artery w ithout angina pectoris (4) History of depression Code(s): Z86.59 - PERSONAL HISTORY OF OTHER MENTAL AND BEHAVIORAL DISORDERS (5) S/P AVR (aortic valve replacement) Code(s): Z95.2 - PRESENCE OF PROSTHETIC HEART VALVE (6) Suspected 2019 novel coronavirus infection Code(s): Z20.828 - CONTACT W AND EXPOSURE TO OT VIRAL COMMUNICABLE DISEASES Assessment/Plan Discussed in detail with the patient Also discussed with nursing staff Compliance stressed will Ask for palliative care consult Will ask for psychiatric consult also Will follow Close monitoring
--- NOTE | 2019-10-03 13:02 | PN ---
Progress Note (short form) - Note Progress Note: Mildly tachypneic on 6 L NC O2. Saturation 87%. Some congested cough. No acute events overnight. CXR: increasing congestive changes Intake & Output 09/30/19 10/01/19 10/02/19 10/03/19 23:59 23:59 23:59 23:59 Intake Total 1755 930 845 Output Total 400 1950 650 Balance 1355 -1020 195 Weight 139 lb 136 lb Last Vital Signs Temp Pulse Resp BP Pulse Ox 97.8 F 80 26 H 131/82 95 10/03/19 06:00 10/03/19 06:00 10/03/19 09:07 10/03/19 09:07 10/03/19 09:07 Active Medications Acetaminophen (Tylenol -) 650 mg PO Q6H PRN PRN Reason: FEVER Last Admin: 09/24/19 11:15 Dose: 650 mg Documented by: Albuterol Sulfate (Ventolin Hfa Inhaler -) 2 puff IH Q4H PRN PRN Reason: SHORT OF BREATH/WHEEZING Last Admin: 10/02/19 21:11 Dose: 2 puff Documented by: Amoxicillin/Clavulanate Potassium (Augmentin - 875mg Tablet) 1 tab PO BID@0800,1730 [facility] Last Admin: 10/03/19 09:36 Dose: Not Given Documented by: Apixaban (Eliquis -) 5 mg PO BID [facility] Last Admin: 10/03/19 11:20 Dose: 5 mg Documented by: Atorvastatin Calcium (Lipitor -) 40 mg PO [facility] Last Admin: 10/02/19 21:11 Dose: 40 mg Documented by: Diltiazem HCl (Cardizem Cd -) 180 mg PO DAILY [facility] Last Admin: 10/03/19 11:20 Dose: 180 mg Documented by: Furosemide (Lasix -) 20 mg PO DAILY [facility] Last Admin: 10/03/19 11:21 Dose: 20 mg Documented by: Metoprolol Succinate (Toprol Xl -) 100 mg PO BID [facility] Last Admin: 10/03/19 11:20 Dose: 100 mg Documented by: Mirtazapine (Remeron -) 7.5 mg PO DAILY [facility] Pantoprazole Sodium (Protonix -) 40 mg PO DAILY [facility] Last Admin: 10/03/19 11:20 Dose: 40 mg Documented by: Prednisone (Deltasone -) 20 mg PO DAILY [facility] Last Admin: 10/03/19 11:20 Dose: 20 mg Documented by: Constitutional: Yes: Mildly tachypneic at rest, Thin Eyes: Yes: WNL HENT: Yes: WNL Neck: Yes: WNL Cardiovascular: Yes: Pulse Irregular, S1, S2 Respiratory: Yes: Rales (scattered crackles) Gastrointestinal: Yes: Normal Bowel Sounds, Soft Extremities: Yes: WNL Edema: No Labs: Laboratory Results - last 24 hr 10/03/19 12:05 Anticoagulation Therapy No Result Required. Puncture Site Right radial Patient Temperature No Result Required. ABG pH 7.482 H ABG pCO2 31.20 L ABG pO2 56.8 L ABG HCO3 22.8 ABG O2 Sat (Measured) 91.9 L ABG O2 Content No Result Required. ABG Base Excess 0.1 Polo Test Positive Patient On Oxygen Yes O2 Delivery Device 5l Oxygen Flow Rate 40 Vent Mode No Result Required. Vent Rate No Result Required. Mechanical Rate No Result Required. PEEP No Result Required. Pressure Support Vent No Result Required. Assessment/Plan Acute Hypoxic Respiratory Failure Suspect COVID19 Pneumonitis PCR negative LV Diastolic Dysfunction Atrial Fibrillation HTN Hyperlipidemia - Trial of HFOT - prednisone - Continue lasix - O2 to keep SpO2 >90% - rate control - anticoagulation Dr Gonzalez
[2019-10-03 17:24] LABS: BASO % 0.2 % (0-2.0); HEMATOCRIT 33.5 % (35.4-49); HEMOGLOBIN 10.8 GM/dL (11.7-16.9); LYMPH % 4.6 % (8-40); MCHC 32.3 g/dl (32.0-35.9); MEAN CELL VOLUME 92.9 fl (80-96); MEAN PLT VOLUME 7.9 fl (7.5-11.1); MONO % 1.2 % (3.8-10.2); PLATELET COUNT 210 K/MM3 (134-434); RBC 3.61 M/mm3 (4.00-5.60); RDW 16.8 % (11.9-15.9); WHITE BLOOD COUNT 15.8 K/mm3 (4.0-10.0)
[2019-10-03 17:42] LABS: ALBUMIN 2.1 g/dl (3.4-5.0); BILIRUBIN,TOTAL 1.5 mg/dL (0.2-1); BLOOD UREA NITROGEN 25.1 mg/dL (7-18); CALCIUM 7.1 mg/dL (8.5-10.1); POTASSIUM 3.5 mmol/L (3.5-5.1); TOT PROT 5.6 g/dl (6.4-8.2)
[2019-10-03 19:18] LABS: ANISOCYTOSIS 1+; MACROCYTOSIS 0; OVALOCYTE 1+; PLATELET ESTIMATE NORMAL
[2019-10-03] MEDS: ATORVASTATIN CA 40 MG TABLET (FP) PO SCH (21:44)
[2019-10-03] MEDS ORDERED: MIRTAZAPINE 15 MG TABLET (FP) PO SCH (22:00)
[2019-10-04] MEDS: AMOX TR/POT CLAV 875MG/125MG TABLETS (FP) PO SCH (07:50)
--- NOTE | 2019-10-04 08:44 | PN ---
Progress Note, Physician History of Present Illness: Reports improved dyspnea, denies palpitations, chest discomfort (remains in rate-controlled Atrial flutter with 4:1 conduction) - Current Medication List Current Medications: Active Medications Acetaminophen (Tylenol -) 650 mg PO Q6H PRN PRN Reason: FEVER Last Admin: 09/24/19 11:15 Dose: 650 mg Documented by: Albuterol Sulfate (Ventolin Hfa Inhaler -) 2 puff IH Q4H PRN PRN Reason: SHORT OF BREATH/WHEEZING Last Admin: 10/02/19 21:11 Dose: 2 puff Documented by: Amoxicillin/Clavulanate Potassium (Augmentin - 875mg Tablet) 1 tab PO BID @0800,1730 [facility] Last Admin: 10/04/19 07:50 Dose: 1 tab Documented by: Apixaban (Eliquis -) 5 mg PO BID [facility] Last Admin: 10/03/19 21:44 Dose: 5 mg Documented by: Atorvastatin Calcium (Lipitor -) 40 mg PO [facility] Last Admin: 10/03/19 21:44 Dose: 40 mg Documented by: Diltiazem HCl (Cardizem Cd -) 180 mg PO DAILY [facility] Last Admin: 10/03/19 11:20 Dose: 180 mg Documented by: Furosemide (Lasix -) 20 mg PO DAILY [facility] Last Admin: 10/03/19 11:21 Dose: 20 mg Documented by: Metoprolol Succinate (Toprol Xl -) 100 mg PO BID [facility] Last Admin: 10/03/19 21:44 Dose: 100 mg Documented by: Mirtazapine (Remeron -) 7.5 mg PO [facility] Last Admin: 10/03/19 21:44 Dose: 7.5 mg Documented by: Pantoprazole Sodium (Protonix -) 40 mg PO DAILY [facility] Last Admin: 10/03/19 11:20 Dose: 40 mg Documented by: Prednisone (Deltasone -) 20 mg PO DAILY [facility] Last Admin: 10/03/19 11:20 Dose: 20 mg Documented by: - Objective Vital Signs: Vital Signs Temperature 97.3 F L 10/04/19 06:00 Pulse Rate 82 10/04/19 06:00 Respiratory Rate 20 10/04/19 06:00 Blood Pressure 110/80 10/04/19 06:00 O2 Sat by Pulse Oximetry (%) 96 10/04/19 06:00 Labs: CBC, BMP 10/03/19 16:20 10/03/19 16:20 INR, PTT INR 1.97 (0.83-1.09) H 09/23/19 18:40 Assessment/Plan Problem List - Problems (1) Acute on chronic diastolic (congestive) heart failure Code(s): I50.33 - ACUTE ON CHRONIC DIASTOLIC (CONGESTIVE) HEART FAILURE (2) Aortic valve stenosis Code(s): I35.0 - NONRHEUMATIC AORTIC (VALVE) STENOSIS Qualifiers: Cardiac valve disease etiology: nonrheumatic Qualified Code(s): I35.0 - Nonrheumatic aortic (valve) stenosis (3) Atrial flutter Code(s): I48.92 - UNSPECIFIED ATRIAL FLUTTER Qualifiers: Atrial flutter type: unspecified Qualified Code(s): I48.92 - Unspecified atrial flutter (4) CAD (coronary artery disease) Code(s): I25.10 - ATHSCL HEART DISEASE OF [place] CORONARY ARTERY W/O ANG PCTRS Qualifiers: Coronary Disease-Associated Artery/Lesion type: [place] artery [place] vs. transplanted heart: [place] heart Associated angina: without angina Qualified Code(s): I25.10 - Atherosclerotic heart disease of [place] coronary artery without angina pectoris (5) HTN (hypertension) Code(s): I10 - ESSENTIAL (PRIMARY) HYPERTENSION Qualifiers: Hypertension type: essential hypertension (6) Hx of CABG Code(s): Z95.1 - PRESENCE OF AORTOCORONARY BYPASS GRAFT (7) Hypercholesterolemia Code(s): E78.00 - PURE HYPERCHOLESTEROLEMIA, UNSPECIFIED (8) S/P AVR (aortic valve replacement) Code(s): Z95.2 - PRESENCE OF PROSTHETIC HEART VALVE (9) S/P left atrial appendage ligation Code(s): Z98.890 - OTHER SPECIFIED POSTPROCEDURAL STATES (10) Suspected 2019 novel coronavirus infection Code(s): Z20.828 - CONTACT W AND EXPOSURE TO OTH VIRAL COMMUNICABLE DISEASES Assessment/Plan Echo 09/03/2019 Post-op septal motion, normal LVEF 50-55%, mod cLVH, normal RV size and fxn, mild LAE, mild MR, TR, bioAVR, mild AR, restrictive physiology Echocardiography October 12, 2018 revealed mild degree of concentric left ventricular hypertrophy with normal left ventricular systolic function and estimated LVEF between 65-70%, mild left atrial dilatation, normal right ventricular size and systolic function, aortic valve bioprosthesis with no aortic valve insufficiency, moderately dilated ascending aorta, mild thickening of the mitral valve leaflets with mild mitral valve regurgitation, mild to moderate tricuspid valve regurgitation with calculated RVSP of [address]: Small-moderate right and very small left effusion, pulm edema TAA 3.9 cm 1. Clinical presentation is consistent with chronic class I-II NYHA classification LV diastolic heart failure 2. History of a recent acute hypoxic respiratory failure related to bronchopneumonia with probable sepsis syndrome, coronavirus/COVID 19, currently not detected 3. Persistent atrial flutter with periods rapid ventricular response [id number] score of 5 on DOAC/Eliquis 4. CAD s/p CABG with evidence of demand ischemia related to the above-noted clinical presentation angina pectoris 5. Aortic valve stenosis post SAVR/bioprosthesis - with LA appendage ligation 6. HTN 7. Hypercholesterolemia 8. History of altered mental status with underlying history of depression 9. History of bacteremia 10. Anemia PLAN: 1. Continue Toprol XL 100 mg BID with dose titration 2. Continue Cardizem CD 180 mg QD as tolerated 3. Continue Atorvastatin 40 mg QD 4. Continue Eliquis 5 mg BID 5. Continue Lasix 20 mg PO QD with monitoring renal function and electrolytes. Dose of Lasix 40 mg IV to be given this am. Monitor I/Os 6. Pulmonary follow up 7. Synchronized cardioversion if remains in atrial flutter and respiratory status stabilized. 8. Oral steroid taper with GI protection, bronchodilator, empiric antibiotic coverage and O2 to keep SpO2 >90% 9. PT as tolerated
[2019-10-04] MEDS: predniSONE 20 MG TABLET (UD) PO SCH (09:29)
[2019-10-04] MEDS: APIXABAN 5 MG TABLET PO SCH ×2 (09:29→22:00)
[2019-10-04] MEDS: FUROSEMIDE 20 MG TABLET (FP) PO SCH (09:29)
[2019-10-04] MEDS: PANTOPRAZOLE 40 MG TABLET PO SCH (09:29)
--- NOTE | 2019-10-04 10:19 | PN ---
Progress Note, Physician Chief Complaint: Events noted Sitting in chair and breathing better this AM History of Present Illness: Patient was seen and examined. Awake and alert. Chart was reviewed Denies chest pain or palpitations Denies dyspnea this AM Discussed synchronized cardioversion tentatively tomorrow AM - Current Medication List Current Medications: Active Medications Acetaminophen (Tylenol -) 650 mg PO Q6H PRN PRN Reason: FEVER Last Admin: 09/24/19 11:15 Dose: 650 mg Documented by: Albuterol Sulfate (Ventolin Hfa Inhaler -) 2 puff IH Q4H PRN PRN Reason: SHORT OF BREATH/WHEEZING Last Admin: 10/02/19 21:11 Dose: 2 puff Documented by: Amoxicillin/Clavulanate Potassium (Augmentin - 875mg Tablet) 1 tab PO BID@0800,1730 [facility] Last Admin: 10/04/19 07:50 Dose: 1 tab Documented by: Apixaban (Eliquis -) 5 mg PO BID [facility] Last Admin: 10/04/19 09:29 Dose: 5 mg Documented by: Atorvastatin Calcium (Lipitor -) 40 mg PO [facility] Last Admin: 10/03/19 21:44 Dose: 40 mg Documented by: Diltiazem HCl (Cardizem Cd -) 180 mg PO DAILY [facility] Last Admin: 10/04/19 09:29 Dose: 180 mg Documented by: Furosemide (Lasix -) 20 mg PO DAILY [facility] Last Admin: 10/04/19 09:29 Dose: 20 mg Documented by: Metoprolol Succinate (Toprol Xl -) 100 mg PO BID [facility] Last Admin: 10/04/19 09:29 Dose: 100 mg Documented by: Mirtazapine (Remeron -) 7.5 mg PO [facility] Last Admin: 10/03/19 21:44 Dose: 7.5 mg Documented by: Pantoprazole Sodium (Protonix -) 40 mg PO DAILY [facility] Last Admin: 10/04/19 09:29 Dose: 40 mg Documented by: Prednisone (Deltasone -) 20 mg PO DAILY [facility] Last Admin: 10/04/19 09:29 Dose: 20 mg Documented by: - Objective Vital Signs: Vital Signs Temperature 97.3 F L 10/04/19 06:00 Pulse Rate 82 10/04/19 06:00 Respiratory Rate 20 10/04/19 06:00 Blood Pressure 110/80 10/04/19 06:00 O2 Sat by Pulse Oximetry (%) 96 10/04/19 06:00 HENT: Yes: Atraumatic Neck: Yes: Supple Cardiovascular: Yes: Pulse Irregular, S1, S2 Respiratory: Yes: Diminished, On Nasal O2 Gastrointestinal: Yes: Normal Bowel Sounds, Soft. No: Tenderness Edema: No Additional Findings/Remarks: - Review of Systems Constitutional: denies: Chills, Fever Cardiovascular: denies Chest Pain, (+) Shortness of Breath. denies: Palpitations Respiratory: reports: SOB. denies: Cough, Hemoptysis, Orthopnea, PND Gastrointestinal: denies: Abdominal Pain, Constipation, Diarrhea, Melena, Nausea, Rectal Bleeding, Vomiting Neurological: denies: Dizziness, Headache, Seizure, Syncope Labs: CBC, BMP 10/03/19 16:20 10/03/19 16:20 INR, PTT INR 1.97 (0.83-1.09) H 09/23/19 18:40 Problem List - Problems (1) Acute on chronic diastolic (congestive) heart failure Code(s): I50.33 - ACUTE ON CHRONIC DIASTOLIC (CONGESTIVE) HEART FAILURE (2) Acute respiratory failure with hypoxia Code(s): J96.01 - ACUTE RESPIRATORY FAILURE WITH HYPOXIA (3) Aortic aneurysm Code(s): I71.9 - AORTIC ANEURYSM OF UNSPECIFIED SITE, WITHOUT RUPTURE (4) Atrial flutter Code(s): I48.92 - UNSPECIFIED ATRIAL FLUTTER Qualifiers: Atrial flutter type: unspecified Qualified Code(s): I48.92 - Unspecified atrial flutter (5) CAD (coronary artery disease) Code(s): I25.10 - ATHSCL HEART DISEASE OF [place] CORONARY ARTERY W/O ANG PCTRS Qualifiers: Coronary Disease-Associated Artery/Lesion type: [place] artery [place] vs. transplanted heart: [place] heart Associated angina: without angina Qualified Code(s): I25.10 - Atherosclerotic heart disease of [place] coronary artery without angina pectoris (6) GERD (gastroesophageal reflux disease) Code(s): K21.9 - GASTRO-ESOPHAGEAL REFLUX DISEASE WITHOUT ESOPHAGITIS (7) HTN (hypertension) Code(s): I10 - ESSENTIAL (PRIMARY) HYPERTENSION Qualifiers: Hypertension type: essential hypertension Qualified Code(s): I10 - Essential (primary) hypertension (8) Hypercholesterolemia Code(s): E78.00 - PURE HYPERCHOLESTEROLEMIA, UNSPECIFIED (9) S/P AVR (aortic valve replacement) Code(s): Z95.2 - PRESENCE OF PROSTHETIC HEART VALVE (10) S/P left atrial appendage ligation Code(s): Z98.890 - OTHER SPECIFIED POSTPROCEDURAL STATES (11) Suspected COVID-19 virus infection Code(s): Z20.828 - CONTACT W AND EXPOSURE TO OT VIRAL COMMUNICABLE DISEASES Assessment/Plan 1. Clinical presentation is consistent with chronic class I-II NYHA classification LV diastolic heart failure 2. History of a recent acute hypoxic respiratory failure related to bronchopneumonia with probable sepsis syndrome, coronavirus/COVID 19, currently not detected 3. Persistent atrial flutter with periods rapid ventricular response [id number] score of 5 on DOAC/Eliquis 4. CAD s/p CABG with evidence of demand ischemia related to the above-noted c linical presentation angina pectoris 5. Aortic valve stenosis post SAVR/bioprosthesis - with [place] appendage ligation 6. HTN 7. Hypercholesterolemia 8. History of altered mental status with underlying history of depression 9. History of bacteremia 10. Anemia PLAN: 1. Continue Toprol XL 100 mg BID with dose titration 2. Continue Cardizem CD 180 mg QD as tolerated 3. Continue Atorvastatin 40 mg QD 4. Continue Eliquis 5 mg BID 5. Continue Lasix 20 mg PO QD with monitoring renal function and electrolytes. IV Lasix if needed 6. Synchronized cardioversion if remains in atrial flutter and respiratory status stabilized. Tentatively tomorrow. Keep NPO at MN 8. Oral steroid taper with GI protection, bronchodilator, empiric antibiotic coverage and O2 to keep SpO2 >90% 9. PT as tolerated Further plans are to follow Phuc Dillon MD
--- NOTE | 2019-10-04 10:32 | PN ---
Progress Note, Physician History of Present Illness: pt seen/ examined chart reviewed awake/ feels better On nasal cannula Saturating okay No distress For cardioversion today - Current Medication List Current Medications: Active Medications Acetaminophen (Tylenol -) 650 mg PO Q6H PRN PRN Reason: FEVER Last Admin: 09/24/19 11:15 Dose: 650 mg Documented by: Albuterol Sulfate (Ventolin Hfa Inhaler -) 2 puff IH Q4H PRN PRN Reason: SHORT OF BREATH/WHEEZING Last Admin: 10/02/19 21:11 Dose: 2 puff Documented by: Amoxicillin/Clavulanate Potassium (Augmentin - 875mg Tablet) 1 tab PO BID@0800 ,1730 [facility] Last Admin: 10/04/19 07:50 Dose: 1 tab Documented by: Apixaban (Eliquis -) 5 mg PO BID [facility] Last Admin: 10/04/19 09:29 Dose: 5 mg Documented by: Atorvastatin Calcium (Lipitor -) 40 mg PO [facility] Last Admin: 10/03/19 21:44 Dose: 40 mg Documented by: Diltiazem HCl (Cardizem Cd -) 180 mg PO DAILY [facility] Last Admin: 10/04/19 09:29 Dose: 180 mg Documented by: Furosemide (Lasix -) 20 mg PO DAILY [facility] Last Admin: 10/04/19 09:29 Dose: 20 mg Documented by: Metoprolol Succinate (Toprol Xl -) 100 mg PO BID [facility] Last Admin: 10/04/19 09:29 Dose: 100 mg Documented by: Mirtazapine (Remeron -) 7.5 mg PO [facility] Last Admin: 10/03/19 21:44 Dose: 7.5 mg Documented by: Pantoprazole Sodium (Protonix -) 40 mg PO DAILY [facility] Last Admin: 10/04/19 09:29 Dose: 40 mg Documented by: Prednisone (Deltasone -) 20 mg PO DAILY [facility] Last Admin: 10/04/19 09:29 Dose: 20 mg Documented by: - Objective Vital Signs: Vital Signs Temperature 97.3 F L 10/04/19 06:00 Pulse Rate 82 10/04/19 06:00 Respiratory Rate 20 10/04/19 06:00 Blood Pressure 110/80 10/04/19 06:00 O2 Sat by Pulse Oximetry (%) 96 10/04/19 06:00 Constitutional: Yes: No Distress, Calm Neck: Yes: Supple Cardiovascular: Yes: Pulse Irregular Respiratory: Yes: Diminished Gastrointestinal: Yes: Soft Edema: No Neurological: Yes: Alert Psychiatric: Yes: Alert Labs: CBC, BMP 10/03/19 16:20 10/03/19 16:20 INR, PTT INR 1.97 (0.83-1.09) H 09/23/19 18:40 Problem List - Problems (1) Acute respiratory failure with hypoxia Code(s): J96.01 - ACUTE RESPIRATORY FAILURE WITH HYPOXIA (2) Atrial fibrillation Code(s): I48.91 - UNSPECIFIED ATRIAL FIBRILLATION (3) CAD (coronary artery disease) Code(s): I25.10 - ATHSCL HEART DISEASE OF [place] CORONARY ARTERY W/O ANG PCTRS Qualifiers: Coronary Disease-Associated Artery/Lesion type: [place] artery [place] vs. transplanted heart: [place] heart Associated angina: without angina Qualified Code(s): I25.10 - Atherosclerotic heart disease of [place] coronary artery without angina pectoris (4) History of depression Code(s): Z86.59 - PERSONAL HISTORY OF OTHER MENTAL AND BEHAVIORAL DISORDERS (5) S/P AVR (aortic valve replacement) Code(s): Z95.2 - PRESENCE OF PROSTHETIC HEART VALVE (6) Suspected 2019 novel coronavirus infection Code(s): Z20.828 - CONTACT W AND EXPOSURE TO OTH VIRAL COMMUNICABLE DISEASES Assessment/Plan Better Continue present care Cardioversion today will follow
--- NOTE | 2019-10-04 12:17 | PN ---
Progress Note (short form) - Note Progress Note: PULMONARY [employer] VSS/afebrile Appears mildly SOB at rest Comfortable on O2 Constitutional: Yes: Mildly tachypneic at rest, Thin Eyes: Yes: WNL HENT: Yes: WNL Neck: Yes: WNL Cardiovascular: Yes: Pulse Irregular, S1, S2 Respiratory: Yes: Rales (scattered crackles) Gastrointestinal: Yes: Normal Bowel Sounds, Soft Extremities: Yes: WNL Edema: No Labs/meds/notes/images reviewed Assessment/Plan Acute Hypoxic Respiratory Failure Suspect COVID19 Pneumonitis PCR negative LV Diastolic Dysfunction Atrial Fibrillation/flutter HTN Hyperlipidemia - prednisone - Continue lasix - O2 to keep SpO2 >90% - rate control - anticoagulation - for ECV today Jermain PRADO MD
--- NOTE | 2019-10-04 13:45 | CONSULT ---
Consult Consult Specialty:: Palliative Care Referred by:: Teresa Mahoney Reason for Consultation:: Goals of care - History of Present Illness Chief Complaint: SOB, suspected COVID pneumonitis History of Present Illness: 78yo male with h/o HTN, hyperlipidemia, atrial fibrillation, LV diastolic dysfunction, CAD s/p CABG, angina, s/p bioprosthetic AVR with resection of LA appendage, hx of GI bleed with multiple recent admissions ( 08/31- 09/12, 09/19-09/21, 09/22- current) for hypoxia and suspected COVID19 ( tested negative multiple times) discharged on home O2 but returned with worsening shortness of breath. He was using his home O2 but without relief. No fevers, chills or sweats. No cough or chest discomfort. CT chest showing bilateral ground glass opacities with small right effusion suspicious for COVID19. Serology tests for COVD negative. He was doing better initally and down to 2-3 L N.C o2 but on the he had a hypoxic episode and has been requiring 5-6 L N.[place] o2, refused VM/ Hiflo as it was uncomfortable. He was also refusing meds yesterday saying "I can't breathe with that on just let me be, I want to at home." He agreed to take his meds after talking to his . He has also been suffering from depression/ anxiety , ? hallucinations in previous admission and was at one point on abilify. he is now on remeron for depression.He is on a steroid taper and diuretics, completed course of a/bs, on AV vinny blocking agents for A Flutter. Definitive treatment on hold ( cardioversion) till respiratory status stabilizes. His leucocytosis and inflammatory markers are all showing a downtrend today. CTA neg for PE. Palliative care consult requested for goals of care. - History Source History Provided By: Medical Record Limitations to Obtaining History: Poor Historian - Past Medical History Cardio/Vascular: Yes: AFIB, Aortic Stenosis, CHF, HTN, Hyperlipdemia, Other (Angina) Pulmonary: Yes: O2 Dependent Gastrointestinal: Yes: GI Bleed, Other Psych: Yes: Anxiety, Depression - Past Surgical History Past Surgical History: Yes: CABG, Hernia Repair (Inguinal, Umbilical), Stent, Valve Replacement - Alcohol/Substance Use Hx Alcohol Use: No History of Substance Use: reports: None - Smoking History Smoking history: Former smoker Have you smoked in the past 12 months: No Aproximately how many cigarettes per day: 10 If you are a former smoker, when did you quit?: 40 years ago - Social History Usual Living Arrangement: With Spouse ADL: Independent History of Recent Travel: No Home Medications - Allergies Allergies/Adverse Reactions: Allergies Allergy/AdvReac Type Severity Reaction Status Date / Time No Known Allergies Allergy Verified 09/23/19 22:09 - Home Medications Home Medications: Ambulatory Orders Acetaminophen [Tylenol .Regular Strength -] 650 mg PO Q4H PRN tablet 09/13/19 Albuterol Sulfate Inhaler - [Ventolin HFA Inhaler -] 2 puff IH Q4H PRN inhaler 09/13/19 Apixaban [Eliquis -] 5 mg PO BID #60 tablet 09/22/19 Atorvastatin Ca [Lipitor] 40 mg PO HS #30 tablet 09/22/19 Diltiazem Cd [Cardizem Cd -] 120 mg PO DAILY #30 cap.cd.24h 09/22/19 Furosemide [Lasix -] 20 mg PO DAILY #30 tablet 09/22/19 Metoprolol Succinate [Toprol Xl] 100 mg PO BID #60 tab.er.24h 09/22/19 Pantoprazole Sodium [Protonix -] 40 mg PO DAILY #30 tablet.ec 09/22/19 Diltiazem Cd [Cardizem Cd -] 180 mg PO DAILY #30 cap.cd.24h 09/30/19 Furosemide [Lasix -] 20 mg PO DAILY #30 tablet 09/30/19 predniSONE [Deltasone -] 10 mg PO DAILY #3 tablet 09/30/19 Family Medical History Family History: Unable to Obtain Review of Systems - Review of Systems Constitutional: reports: Loss of Appetite, Weakness Respiratory: reports: Cough, SOB Physical Exam Vital Signs: Vital Signs Temperature 97.9 F 10/04/19 10:00 Pulse Rate 70 10/04/19 10:00 Respiratory Rate 10/04/19 10:00 Blood Pressure 113/64 10/04/19 10:00 O2 Sat by Pulse Oximetry (%) 96 10/04/19 10:00 Constitutional: Yes: Anxious, Thin Eyes: Yes: Conjunctiva Clear, EOM Intact HENT: Yes: Atraumatic, Normocephalic Neck: Yes: Supple Labs: CBC, BMP 10/03/19 16:20 10/03/19 16:20 Imaging - Results Chest X-ray: Report Reviewed Cat Scan: Report Reviewed Problem List - Problems (1) Acute on chronic diastolic (congestive) heart failure Code(s): I50.33 - ACUTE ON CHRONIC DIASTOLIC (CONGESTIVE) HEART FAILURE (2) Acute respiratory failure with hypoxia Code(s): J96.01 - ACUTE RESPIRATORY FAILURE WITH HYPOXIA (3) Atrial flutter Code(s): I48.92 - UNSPECIFIED ATRIAL FLUTTER Qualifiers: Atrial flutter type: unspecified Qualified Code(s): I48.92 - Unspecified atrial flutter (4) Depression Code(s): F32.9 - MAJOR DEPRESSIVE DISORDER, SINGLE EPISODE, UNSPECIFIED Qualifiers: Depression Type: other depression Qualified Code(s): F32.89 - Other specified depressive episodes (5) Failure to thrive in adult Code(s): R62.7 - ADULT FAILURE TO THRIVE (6) S/P AVR (aortic valve replacement) Code(s): Z95.2 - PRESENCE OF PROSTHETIC HEART VALVE (7) S/P left atrial appendage ligation Code(s): Z98.890 - OTHER SPECIFIED POSTPROCEDURAL STATES (8) Suspected COVID-19 virus infection Code(s): Z20.828 - CONTACT W AND EXPOSURE TO [facility] VIRAL COMMUNICABLE DISEASES Assessment/Plan 78yo male with h/o HTN, hyperlipidemia, atrial fibrillation, LV diastolic dysfunction, CAD s/p CABG, angina, s/p bioprosthetic AVR with resection of LA appendage, hx of GI bleed with multiple recent admissions ( 08/31- 09/12, 09/19-09/21, 09/22- current) for hypoxia and suspected COVID19 ( tested negative multiple times) , o2 dependent. + depression/ anxiety, worsening debility I spoke to pt's Shelley who requested that I speak to their son Shreyas. I had a detailed conversation with Shreyas and went over Osito's declining health over past 1 month. He has had issues in the past including episode of depression briefly in 2004, recent heart valve surgery 2 years ago. He was independent and living with his at home till this August. He had some cough and SOB which the family initially though was due to depression and anxiety. But since the August hospitalization he has been o2 dependent presumably secondary to COVID pneumonitis complicated by A Flutter and diastolic dysfunction and CHF- after fi rst hospitalization he went to a SNF for rehab but came back to the hospital in a few days due to palpitations. he was stabilized and sent home in a couple of days but came back the next day for worsening SOB. He is now getting physically and mentally tired with his continuing debility. He was doing better initally and down to 2-3 L N.[place] o2 but on the he had a hypoxic episode and has been requiring 5-6 L N.[place] o2, refused VM/ Hiflo as it was uncomfortable. He was also refusing meds yesterday saying "I can't breathe with that on just let me be, I want to at home." He agreed to take his meds after talking to his . He has also been suffering from depression/ anxiety , he is now on remeron for depression. Definitive treatment on hold ( cardioversion) till respiratory status stabilizes. His leucocytosis and inflammatory markers are all showing a downtrend today. CTA neg for PE. We discussed advanced directives and Shreyas indicated that he does no think his dad would want to go on the ventilator and he knows his mom does not want his dad " hooked onto machines". He is going to have another discussion with his Mom. I did suggest to him that if thats what his parents' feelings are we should have it in Osito's chart so his wishes are honored if the situation arises. We discussed prolonged debility from COVID induced lung damage compounded by his underlying heart issues. We also discussed quality of life issues. Shreyas indicated that Osito would not want to go back to [facility] but he understands that with his dad's debility his Mom may not be able to take care of him at home- if and when Osito is ready for discharge. The family would probably want other options for SNF presented to them for discharge planning. Imani for allowing me to participate in the care of this pateint. Please call with questions. Obie Cruz MD [phone] Total time for chart review, examination, conference and coordination of care- 70 minutes.
--- NOTE | 2019-10-04 16:15 | CON.PSY ---
Psychiatry Consult Chief Complaint: Georgie dyer ,male with extensive chronic and acute Medical conditions seen for Psych eval for Depression. On Remeron but patient is smiling abd deniews that he is Depressed. Denies any suicidal ideas and been coopertive with care. Symptoms: reports: Anhedonia - Previous Psychiatric Treatment Outpatient: None Inpatient: None - Previous Substance Abuse Treatment Outpatient: None Inpatient: None - Current Medications Current Medications: Active Medications Acetaminophen (Tylenol -) 650 mg PO Q6H PRN PRN Reason: FEVER Last Admin: 09/24/19 11:15 Dose: 650 mg Documented by: Albuterol Sulfate (Ventolin Hfa Inhaler -) 2 puff IH Q4H PRN PRN Reason: SHORT OF BREATH/WHEEZING Last Admin: 10/02/19 21:11 Dose: 2 puff Documented by: Amoxicillin/Clavulanate Potassium (Augmentin - 875mg Tablet) 1 tab PO BID@0800,1730 [facility] Last Admin: 10/04/19 07:50 Dose: 1 tab Documented by: Apixaban (Eliquis -) 5 mg PO BID [facility] Last Admin: 10/04/19 09:29 Dose: 5 mg Documented by: Atorvastatin Calcium (Lipitor -) 40 mg PO [facility] Last Admin: 10/03/19 21:44 Dose: 40 mg Documented by: Diltiazem HCl (Cardizem Cd -) 180 mg PO DAILY [facility] Last Admin: 10/04/19 09:29 Dose: 180 mg Documented by: Furosemide (Lasix -) 20 mg PO DAILY [facility] Last Admin: 10/04/19 09:29 Dose: 20 mg Documented by: Metoprolol Succinate (Toprol Xl -) 100 mg PO BID [facility] Last Admin: 10/04/19 09:29 Dose: 100 mg Documented by: Mirtazapine (Remeron -) 7.5 mg PO [facility] Last Admin: 10/03/19 21:44 Dose: 7.5 mg Documented by: Pantoprazole Sodium (Protonix -) 40 mg PO DAILY [facility] Last Admin: 10/04/19 09:29 Dose: 40 mg Documented by: Prednisone (Deltasone -) 20 mg PO DAILY [facility] Last Admin: 10/04/19 09:29 Dose: 20 mg Documented by: - Allergies Allergies: Allergies Allergy/AdvReac Type Severity Reaction Status Date / Time No Known Allergies Allergy Verified 09/23/19 22:09 - Current Living Status Usual Living Arrangement: With Spouse - Current Mental Status Evaluation Appearance: Disheveled Attitude: Guarded - Affect Affect: Constrictive Appropriateness: Appropriate to Content - Mood Mood: Euthymic - Speech/Language Expressive: Coherent - Psychomotor Activity Psychomotor Activity: Slowed - Thought Process Thought Process: Intact - Thought Content Hallucinations: Absent Delusions: Absent - Self Perception Self Perception: No Impairment - Cognition Attention: Alert Orientation: Time Memory, Short Term: 3/3 Memory, Remote with Promptin/3 - Concentration Serial Sevens Intact: No Simple Calculations Intact: Yes - Abstraction Proverb Interpretation: Intact Judgement: Intact - Insight Insight: Intact - Impulse Control Impulse Control: Good Control - Suicidal Ideation Suicidal Ideation: No - Homicidal Ideation Homicidal Ideation: No Assessment/Plan 1) increase Remeron 15 mg po0 hs for depression
[2019-10-04] MEDS: ATORVASTATIN CA 40 MG TABLET (FP) PO SCH (22:00)
[2019-10-04] MEDS: MIRTAZAPINE 15 MG TABLET (FP) PO SCH (22:00)
--- NOTE | 2019-10-05 06:20 | PN ---
Progress Note (short form) - Note Progress Note: Chief Complaint: Events noted, notes reviewed, resting in bed, reports persistent dyspnea although clinically improved, denies palpitations, denies chest discomfort (Atrial flutter is persistent with rate control) History of Present Illness: Seen and examined on telemetry. Events noted, notes reviewed, resting in bed, reports persistent dyspnea although clinically improved, denies palpitations, denies chest discomfort (Atrial flutter is persistent with rate control) Plan to proceed with synchronized cardioversion later today for management of the above-noted persistent arrhythmia/persistent atrial flutter Medications: Current Medications Generic Name Dose Route Start Last Admin Trade Name Freq PRN Reason Stop Dose Admin Acetaminophen 650 mg 09/24/19 10:05 09/24/19 11:15 Tylenol - PO 650 mg Q6H PRN Administration FEVER Albuterol Sulfate 2 puff 09/24/19 01:07 10/02/19 21:11 Ventolin Hfa Inhaler - IH 2 puff Q4H PRN Administration SHORT OF BREATH/WHEEZING Apixaban 5 mg 09/24/19 10:00 10/04/19 22:00 Eliquis - PO 5 mg BID MAGI Administration Atorvastatin Calcium 40 mg 09/24/19 22:00 10/04/19 22:00 Lipitor - PO 40 mg HS MAGI Administration Diltiazem HCl 180 mg 09/29/19 15:45 10/04/19 09:29 Cardizem Cd - PO 180 mg DAILY MAGI Administration Furosemide 20 mg 09/29/19 10:00 10/04/19 09:29 Lasix - PO 20 mg DAILY MAGI Administration Metoprolol Succinate 100 mg 09/24/19 10:00 10/04/19 22:00 Toprol Xl - PO 100 mg BID MAGI Administration Mirtazapine 15 mg 10/04/19 22:00 10/04/19 22:00 Remeron - PO 15 mg HS MAGI Administration Pantoprazole Sodium 40 mg 09/24/19 10:00 10/04/19 09:29 Protonix - PO 40 mg DAILY MAGI Administration Prednisone 20 mg 10/01/19 10:00 10/04/19 09:29 Deltasone - PO 20 mg DAILY MAGI Administration Review of Systems Constitutional: denies Chills or Fever Respiratory: reports: Dyspnea Cardiovascular: As noted above Gastrointestinal: denies Nausea, Vomiting, Diarrhea or Constipation or Abdominal Discomfort Genitourinary: No Symptoms Reported Musculoskeletal: No Symptoms Reported Vital Signs: Last Vital Signs Temp Pulse Resp BP Pulse Ox 98.2 F 95 H 19 133/80 93 L 10/05/19 02:00 10/05/19 02:00 10/05/19 02:00 10/05/19 02:00 10/05/19 04:28 Intake & Output 10/02/19 10/03/19 10/04/19 10/05/19 23:59 23:59 23:59 23:59 Intake Total 845 120 240 Output Total 650 575 750 Balance 688 -435 -510 Weight 136 lb 136 lb 2 oz Neck: Supple Negative JVD Respiratory: Diminished Breath Sounds at the Bases Cardiovascular: S1 S2 Irregularly Irregular grade 2/6 systolic ejection murmur Gastrointestinal: Soft Benign Normal Bowel Sounds Ext: Negative Edema Labs: CBC, BMP 10/05/19 06:10 10/05/19 06:10 Hepatic Panel Total Bilirubin 1.3 mg/dL (0.2-1) H 10/05/19 06:10 AST 30 U/L (15-37) 10/05/19 06:10 ALT 75 U/L (13-61) H 10/05/19 06:10 Alkaline Phosphatase 87 U/L (45-117) 10/05/19 06:10 Albumin 2.1 g/dl (3.4-5.0) L 10/05/19 06:10 INR, PTT INR 1.97 (0.83-1.09) H 09/23/19 18:40 CBC, BMP 10/03/19 16:20 10/03/19 16:20 Hepatic Panel Total Bilirubin 1.5 mg/dL (0.2-1) H 10/03/19 16:20 AST 27 U/L (15-37) 10/03/19 16:20 ALT 88 U/L (13-61) H 10/03/19 16:20 Alkaline Phosphatase 105 U/L (45-117) 10/03/19 16:20 Albumin 2.1 g/dl (3.4-5.0) L 10/03/19 16:20 INR, PTT INR 1.97 (0.83-1.09) H 09/23/19 18:40 Assessment/Plan ASSESSMENT: 1. Clinical presentation is consistent with chronic class I-II NYHA classification LV diastolic heart failure, no evidence of acute decompensation- as outlined in the prior notes chest x-ray findings related to patient's recent coronavirus/COVID 19 pneumonitis- elevated BNP level related to patient's chronic heart failure syndrome and persistence of atrial arrhythmia/atrial flutter 2. History of a recent acute hypoxic respiratory failure related to bronchopneumonia with probable sepsis syndrome, coronavirus/COVID 19- residual infiltrates 3. Persistent atrial flutter with periods rapid ventricular response- improved heart rate control [id number] score of 5 on DOAC's/Eliquis- for planned elective synchronized cardioversion later today 4. CAD post CABG with evidence of demand ischemia related to the above-noted c linical presentation angina pectoris 5. Aortic valve stenosis post SAVR/bio-prosthesis- with LA appendage ligation 6. Hypertensive cardiovascular disease 7. Hypercholesterolemia 8. History of altered mental status etiology of which was unclear- prior history of clinical depression 9. History of bacteremia- endocarditis unlikely 10. Anemia PLAN: 1. Continue Toprol XL and dose titration as needed hemodynamics permitting 2. Continue Cardizem CD and dose titration as needed hemodynamics permitting 3. Continue Atorvastatin 4. Continue DOAC's/Eliquis 5. Continue Lasix therapy with caution and close monitoring of renal function and electrolytes 6. As outlined above plan to proceed with elective synchronized cardioversion later today, risks, benefits and alternatives were reviewed in detail with the patient Kate Ang MD
[2019-10-05 07:22] LABS: BASO % 0.2 % (0-2.0); HEMATOCRIT 33.8 % (35.4-49); HEMOGLOBIN 10.8 GM/dL (11.7-16.9); LYMPH % 5.2 % (8-40); MCH 29.2 pg (25.7-33.7); MCHC 32.1 g/dl (32.0-35.9); MEAN CELL VOLUME 91.1 fl (80-96); MEAN PLT VOLUME 7.9 fl (7.5-11.1); MONO % 2.3 % (3.8-10.2); NEUT % 92.3 % (42.8-82.8); PLATELET COUNT 213 K/MM3 (134-434); RBC 3.71 M/mm3 (4.00-5.60); WHITE BLOOD COUNT 21.5 K/mm3 (4.0-10.0)
[2019-10-05 07:35] LABS: ALBUMIN 2.1 g/dl (3.4-5.0); BLOOD UREA NITROGEN 23.5 mg/dL (7-18); CALCIUM 7.4 mg/dL (8.5-10.1)
[2019-10-05 07:39] LABS: BILIRUBIN,TOTAL 1.3 mg/dL (0.2-1); CREATININE 0.7 mg/dL (0.55-1.3); TOT PROT 5.7 g/dl (6.4-8.2)
--- NOTE | 2019-10-05 10:34 | PN ---
Progress Note, Physician History of Present Illness: PULMONARY AWAKE,ALERT,LESS DYSPNEIC ON HFOT,AND VM - Current Medication List Current Medications: Active Medications Acetaminophen (Tylenol -) 650 mg PO Q6H PRN PRN Reason: FEVER Last Admin: 09/24/19 11:15 Dose: 650 mg Documented by: Albuterol Sulfate (Ventolin Hfa Inhaler -) 2 puff IH Q4H PRN PRN Reason: SHORT OF BREATH/WHEEZING Last Admin: 10/02/19 21:11 Dose: 2 puff Documented by: Apixaban (Eliquis -) 5 mg PO BID [facility] Last Admin: 10/04/19 22:00 Dose: 5 mg Documented by: Atorvastatin Calcium (Lipitor -) 40 mg PO [facility] Last Admin: 10/04/19 22:00 Dose: 40 mg Documented by: Diltiazem HCl (Cardizem Cd -) 180 mg PO DAILY [facility] Last Admin: 10/04/19 09:29 Dose: 180 mg Documented by: Furosemide (Lasix -) 20 mg PO DAILY [facility] Last Admin: 10/04/19 09:29 Dose: 20 mg Documented by: Metoprolol Succinate (Toprol Xl -) 100 mg PO BID [facility] Last Admin: 10/04/19 22:00 Dose: 100 mg Documented by: Mirtazapine (Remeron -) 15 mg PO [facility] Last Admin: 10/04/19 22:00 Dose: 15 mg Documented by: Pantoprazole Sodium (Protonix -) 40 mg PO DAILY [facility] Last Admin: 10/04/19 09:29 Dose: 40 mg Documented by: Prednisone (Deltasone -) 20 mg PO DAILY [facility] Last Admin: 10/04/19 09:29 Dose: 20 mg Documented by: - Objective Vital Signs: Vital Signs Temperature 98.4 F 10/05/19 10:00 Pulse Rate 102 H 10/05/19 10:00 Respiratory Rate 24 H 10/05/19 10:00 Blood Pressure 129/83 10/05/19 10:00 O2 Sat by Pulse Oximetry (%) 96 10/05/19 10:00 Constitutional: Yes: Calm, Thin, Other (MILDLY DYSPNEIC) Eyes: Yes: WNL HENT: Yes: WNL Neck: Yes: WNL Cardiovascular: Yes: Pulse Irregular, S1, S2 Respiratory: Yes: Diminished Gastrointestinal: Yes: Normal Bowel Sounds, Soft Extremities: Yes: WNL Edema: No Labs: CBC, BMP 10/05/19 06:10 10/05/19 06:10 INR, PTT INR 1.97 (0.83-1.09) H 09/23/19 18:40 Assessment/Plan Assessment/Plan Acute Hypoxic Respiratory Failure i Suspect COVID19 Pneumonitis PCR negative LV Diastolic Dysfunction Atrial Fibrillation/FLUTTER HTN Hyperlipidemia - prednisone - lasix as needed - O2 to keep SpO2 >90% - rate control - anticoagulation - COVID PCR not detected - cardio-version today - eliquis DR DAVIS
[2019-10-05] MEDS ORDERED: MIDAZOLAM HCL 2 MG/2 ML SINGLE DOSE VIAL ONE (11:38)
[2019-10-05 12:19] LABS: ANISOCYTOSIS 2+; MACROCYTOSIS 1+; PLATELET ESTIMATE NORMAL
--- NOTE | 2019-10-05 13:17 | PN ---
Progress Note (short form) - Note Progress Note: pt examined today in endo suite s/p cardioversion appears comfortable denies SOB drowsy Vital Signs - 24 hr 10/04/19 10/04/19 10/04/19 14:00 18:00 21:00 Temperature 98.9 F 98.2 F Pulse Rate 78 75 Respiratory 20 20 Rate Blood Pressure 106/60 113/62 O2 Sat by Pulse 100 93 L Oximetry (%) 10/04/19 10/05/19 10/05/19 22:00 00:00 02:00 Temperature 98.4 F 98.2 F Pulse Rate 88 95 H Respiratory 18 19 Rate Blood Pressure 124/78 133/80 O2 Sat by Pulse 93 L 96 Oximetry (%) 10/05/19 10/05/19 10/05/19 04:28 06:00 09:00 Temperature 98.3 F Pulse Rate 97 H Respiratory 20 Rate Blood Pressure 137/71 O2 Sat by Pulse 93 L 97 96 Oximetry (%) 10/05/19 10/05/19 10/05/19 10:00 12:20 12:35 Temperature 98.4 F 98.2 F Pulse Rate 102 H 97 H 89 Respiratory 24 H 30 H 26 H Rate Blood Pressure 129/83 105/67 120/70 O2 Sat by Pulse 96 93 L 96 Oximetry (%) 10/05/19 12:57 Temperature Pulse Rate 89 Respiratory 20 Rate Blood Pressure 125/65 O2 Sat by Pulse 96 Oximetry (%) Current Medications Generic Name Dose Route Start Last Admin Trade Name Freq PRN Reason Stop Dose Admin Acetaminophen 650 mg 09/24/19 10:05 09/24/19 11:15 Tylenol - PO 650 mg Q6H PRN Administration FEVER Albuterol Sulfate 2 puff 09/24/19 01:07 10/02/19 21:11 Ventolin Hfa Inhaler - IH 2 puff Q4H PRN Administration SHORT OF BREATH/WHEEZING Apixaban 5 mg 09/24/19 10:00 10/04/19 22:00 Eliquis - PO 5 mg BID MAGI Administration Atorvastatin Calcium 40 mg 09/24/19 22:00 10/04/19 22:00 Lipitor - PO 40 mg HS MAGI Administration Diltiazem HCl 180 mg 09/29/19 15:45 10/04/19 09:29 Cardizem Cd - PO 180 mg DAILY MAGI Administration Furosemide 20 mg 09/29/19 10:00 10/04/19 09:29 Lasix - PO 20 mg DAILY MAGI Administration Metoprolol Succinate 100 mg 09/24/19 10:00 10/04/19 22:00 Toprol Xl - PO 100 mg BID MAGI Administration Mirtazapine 15 mg 10/04/19 22:00 10/04/19 22:00 Remeron - PO 15 mg HS MAGI Administration Pantoprazole Sodium 40 mg 09/24/19 10:00 10/04/19 09:29 Protonix - PO 40 mg DAILY MAGI Administration Prednisone 20 mg 10/01/19 10:00 10/04/19 09:29 Deltasone - PO 20 mg DAILY MAGI Administration Laboratory Results - last 24 hr 10/05/19 10/05/19 06:10 06:10 WBC 21.5 H RBC 3.71 L Hgb 10.8 L Hct 33.8 L MCV 91.1 MCH 29.2 MCHC 32.1 RDW 17.0 H Plt Count 213 MPV 7.9 Absolute Neuts (auto) 19.8 H Neutrophils % 92.3 H Neutrophils % (Manual) 90.1 H Band Neutrophils % 0.0 Lymphocytes % 5.2 L Lymphocytes % (Manual) 5.9 L D Monocytes % 2.3 L D Monocytes % (Manual) 3 L Eosinophils % 0.0 Eosinophils % (Manual) 0.0 Basophils % 0.2 Basophils % (Manual) 0.0 Myelocytes % (Man) 1 D Promyelocytes % (Man) 0 Blast Cells % (Manual) 0 Nucleated RBC % 0 Metamyelocytes 0 D Hypochromia 1+ Platelet Estimate Normal Polychromasia 1+ Poikilocytosis 1+ Anisocytosis 2+ Microcytosis 1+ Macrocytosis 1+ Sodium 141 Potassium 4.0 Chloride 107 Carbon Dioxide 26 Anion Gap 8 BUN 23.5 H Creatinine 0.7 Est GFR (CKD-EPI)AfAm 105.50 Est GFR (CKD-EPI)NonAf 91.03 Random Glucose 100 Calcium 7.4 L Total Bilirubin 1.3 H AST 30 ALT 75 H Alkaline Phosphatase 87 Total Protein 5.7 L Albumin 2.1 L S1 S2 Irregular Lungs decreased breath sounds Abd- soft, NT No edema A/P Fever, pneumonitis CHF decompensation Aflutter -- COVID negative -- iv lasix-->change to PO -- on steroids-- taper -- O2 -- pt remains afebrile --s/p cardioversion -- rate control -- continue with meds -- monitor telemetry Problem List - Problems (1) Acute on chronic diastolic (congestive) heart failure Code(s): I50.33 - ACUTE ON CHRONIC DIASTOLIC (CONGESTIVE) HEART FAILURE (2) Acute respiratory failure with hypoxia Code(s): J96.01 - ACUTE RESPIRATORY FAILURE WITH HYPOXIA (3) Atrial fibrillation Code(s): I48.91 - UNSPECIFIED ATRIAL FIBRILLATION (4) GERD (gastroesophageal reflux disease) Code(s): K21.9 - GASTRO-ESOPHAGEAL REFLUX DISEASE WITHOUT ESOPHAGITIS (5) HTN (hypertension) Code(s): I10 - ESSENTIAL (PRIMARY) HYPERTENSION Qualifiers: Hypertension type: essential hypertension Qualified Code(s): I10 - Essential (primary) hypertension (6) Suspected 2019 novel coronavirus infection Code(s): Z20.828 - CONTACT W AND EXPOSURE TO OTH VIRAL COMMUNICABLE DISEASES
--- NOTE | 2019-10-05 13:27 | EKG ---
Test Reason : Blood Pressure : / mmHG Vent. Rate : 097 BPM Atrial Rate : 054 BPM P-R Int : 000 ms QRS Dur : 090 ms QT Int : 392 ms P-R-T Axes : 000 001 163 degrees QTc Int : 497 ms SINUS BRADYCARDIA WITH A-V DISSOCIATION AND ACCELERATED JUNCTIONAL RHYTHM WITH FREQUENT and consecutive PREMATURE VENTRICULAR COMPLEXES LEFT VENTRICULAR HYPERTROPHY WITH REPOLARIZATION ABNORMALITY PROLONGED QT ABNORMAL ECG WHEN COMPARED WITH ECG OF 29-SEP-2019 11:54, JUNCTIONAL RHYTHM HAS REPLACED ATRIAL FLUTTER QRS DURATION HAS DECREASED MINIMAL CRITERIA FOR SEPTAL INFARCT ARE NO LONGER PRESENT Confirmed by Lloyd Goode MD ([id number]) on 10/05/2019 1:26:40 PM Referred By: BRANDON HIGGINS Confirmed By:Lloyd Goode MD
[2019-10-05] MEDS: PANTOPRAZOLE 40 MG TABLET PO SCH (13:53)
[2019-10-05] MEDS: predniSONE 20 MG TABLET (UD) PO SCH (13:53)
[2019-10-05] MEDS: APIXABAN 5 MG TABLET PO SCH ×2 (13:53→22:30)
[2019-10-05] MEDS: FUROSEMIDE 20 MG TABLET (FP) PO SCH (13:53)
[2019-10-05] MEDS: ATORVASTATIN CA 40 MG TABLET (FP) PO SCH (22:30)
[2019-10-05] MEDS: MIRTAZAPINE 15 MG TABLET (FP) PO SCH (22:30)
[2019-10-05] MEDS ORDERED: FUROSEMIDE 40 MG/4 ML INJECTABLE VIAL IVPUSH ONE (22:49)
[2019-10-05] MEDS ORDERED: FUROSEMIDE 40 MG/4 ML INJECTABLE VIAL ONE (22:51)
--- NOTE | 2019-10-05 23:00 | RAPID ---
Physical Examination Vital Signs: Vital Signs Temperature 98.5 F 10/05/19 18:00 Pulse Rate 85 10/05/19 18:00 Respiratory Rate 22 H 10/05/19 18:00 Blood Pressure 119/63 10/05/19 18:00 O2 Sat by Pulse Oximetry (%) 93 L 10/05/19 20:49 Labs: CBC, BMP 10/05/19 06:10 10/05/19 06:10 Rapid Response - Rapid Response Assessment: Rapid response called at 22:41 . Rapid response team arrived immediately to 4S. RN reports patient complaining of SOB and demonstrating O2 sat in the low 80s. Pt c/o SOB. No CP, no leg pain. No cough. O/E: Vitals: BP 116/68 HR: 87 SPO2 82 Patient on HF+ NRB O2 supp, found to bed lying in bed in mild distress, tachypnoic, and using accessory muscles of respiration. AOX3 Speaking in short sentences. Lung exam: B/L coarse breath sounds, mild crackles bl. Heart: RRR, S1 S2. Abd : Benign, soft, NT, ND Lower ext: No edema, no calf tenderness Interventions: - Stat ABG, CXR - IVP lasix 40 mg - Consult ICU
[2019-10-05 23:01] LABS: ALLENS TEST POSITIVE; ARTERIAL BLD GAS O2 SATURATION 86.8 mmHg (95-98); ARTERIAL BLOOD GAS PO2 47.5 mmHg (80-100); ARTERIAL BLOOD GAS pH 7.477 (7.350-7.450); VENT MODE HFNC
[2019-10-05] MEDS ORDERED: PROPOFOL 1,000,000 MCG/100 ML VIAL ONE (23:36)
--- NOTE | 2019-10-05 23:40 | PROC ---
Intubation - Intubation Reason for Intubation: Respiratory Failure Time of Intubation: 23:35 Intubation Method: orotracheal Blade used: Glidescope Tube Size (cm): 8.0 Tube position @ lip (cm): 23 Tube position confirmed by: Direct visualization, CO2 detector, Chest x-ray, Breath sounds Breath Sounds after Intubation: equal
[2019-10-05] MEDS ORDERED: PROPOFOL 1,000,000 MCG/100 ML VIAL IVPB SCH (23:45)
[2019-10-06] MEDS ORDERED: FUROSEMIDE 40 MG/4 ML INJECTABLE VIAL IVPUSH ONE (00:25)
[2019-10-06] MEDS ORDERED: ALBUTEROL SO4 HFA INHALER IH PRN (00:25)
--- NOTE | 2019-10-06 00:28 | CONSULT ---
Consultation: REQUESTING PROVIDER: CONSULT REQUEST: We have been asked to medically evaluate this patient for acute respiratory failure requiring intubation. HISTORY OF PRESENT ILLNESS: 78 year old male PMH Afib (on Eliquis), angina, CHF, HTN, HLD, GI Bleed, suspected COVID (negative COVID test and Ab) and depression presented to the ED with shortness of breath. Pt uses O2 at home (pt unclear as to why he is on home O2) and reported having progressively worsening SOB while using O2. He also denied fevers, chills, chest pain, nausea, vomiting or diarrhea. Pt denies any history of recent travel or sick contacts. Rapid response called overhead. Pt was on optimized settings of HFOT and NRB with SpO2 at 83% with no improvement. Explained risks and benefits to pt about intubation. He was in agreement. Pt intubated successfully in ICU with vent settings at 14/400/100%/10 with Pplat 28 and sedated with versed and fentanyl. REVIEW OF SYSTEMS: As per HPI. PHYSICAL EXAMINATION Last Vital Signs Temp Pulse Resp BP Pulse Ox 97.3 F L 88 14 119/66 92 L 10/05/19 22:00 10/05/19 22:00 10/05/19 23:45 10/05/19 22:00 10/05/19 22:00 GENERAL: Alert and oriented, in acute distress. HEENT: NCAT, EOMI. LUNGS: Diminished at the bases b/l. No wheezes. HEART: Regular rate and rhythm, normal S1 and S2 without murmur. ABDOMEN: Soft, not distended, bowel sounds present EXTREMITIES: warm, well-perfused, no edema SKIN: Warm, dry. Laboratory Last Values WBC 21.5 K/mm3 (4.0-10.0) H 10/05/19 06:10 RBC 3.71 M/mm3 (4.00-5.60) L 10/05/19 06:10 Hgb 10.8 GM/dL (11.7-16.9) L 10/05/19 06:10 Hct 33.8 % (35.4-49) L 10/05/19 06:10 MCV 91.1 fl (80-96) 10/05/19 06:10 MCH 29.2 pg (25.7-33.7) 10/05/19 06:10 MCHC 32.1 g/dl (32.0-35.9) 10/05/19 06:10 RDW 17.0 % (11.9-15.9) H 10/05/19 06:10 Plt Count 213 K/MM3 (134-434) 10/05/19 06:10 MPV 7.9 fl (7.5-11.1) 10/05/19 06:10 Absolute Neuts (auto) 19.8 K/mm3 (1.5-8.0) H 10/05/19 06:10 Neutrophils % 92.3 % (42.8-82.8) H 10/05/19 06:10 Neutrophils % (Manual) 90.1 % (42.8-82.8) H 10/05/19 06:10 Band Neutrophils % 0.0 % 10/05/19 06:10 Lymphocytes % 5.2 % (8-40) L 10/05/19 06:10 Lymphocytes % (Manual) 5.9 % (8-40) L D 10/05/19 06:10 Monocytes % 2.3 % (3.8-10.2) L D 10/05/19 06:10 Monocytes % (Manual) 3 % (3.8-10.2) L 10/05/19 06:10 Eosinophils % 0.0 % (0-4.5) 10/05/19 06:10 Eosinophils % (Manual) 0.0 % (0-4.5) 10/05/19 06:10 Basophils % 0.2 % (0-2.0) 10/05/19 06:10 Basophils % (Manual) 0.0 % (0-2.0) 10/05/19 06:10 Myelocytes % (Man) 1 % (0-2) D 10/05/19 06:10 Promyelocytes % (Man) 0 % (0-2) 10/05/19 06:10 Blast Cells % (Manual) 0 % (0-0) 10/05/19 06:10 Nucleated RBC % 0 % (0-0) 10/05/19 06:10 Metamyelocytes 0 % (0-2) D 10/05/19 06:10 Hypochromia 1+ 10/05/19 06:10 Platelet Estimate Normal 10/05/19 06:10 Polychromasia 1+ 10/05/19 06:10 Poikilocytosis 1+ 10/05/19 06:10 Basophilic Stippling 1+ 10/03/19 16:20 Anisocytosis 2+ 10/05/19 06:10 Microcytosis 1+ 10/05/19 06:10 Macrocytosis 1+ 10/05/19 06:10 Ovalocytes 1+ 10/03/19 16:20 Fragmented RBCs 1+ 09/25/19 06:14 PT with INR 23.40 SEC (9.7-13.0) H 09/23/19 18:40 INR 1.97 (0.83-1.09) H 09/23/19 18:40 D-Dimer 759 ng/ml (0-500) H 10/01/19 13:33 Anticoagulation Therapy No Result Required. 10/05/19 22:49 Puncture Site Right radial 10/05/19 22:49 Patient Temperature No Result Required. 10/05/19 22:49 ABG pH 7.477 (7.350-7.450) H 10/05/19 22:49 ABG pCO2 30.00 mmHg (35-45) L 10/05/19 22:49 ABG pO2 47.5 mmHg (80-100) L 10/05/19 22:49 ABG HCO3 21.7 mmol/L (22-27) L 10/05/19 22:49 ABG O2 Sat (Measured) 86.8 mmHg (95-98) L 10/05/19 22:49 ABG O2 Content No Result Required. 10/05/19 22:49 ABG Base Excess -1.0 mmol/L (-2-2) 10/05/19 22:49 Polo Test Positive 10/05/19 22:49 Patient On Oxygen Yes 10/05/19 22:49 O2 Delivery Device Nrb mask 10/05/19 22:49 Oxygen Flow Rate No Result Required. 10/05/19 22:49 Vent Mode Hfnc 10/05/19 22:49 Vent Rate No Result Required. 10/05/19 22:49 Mechanical Rate No Result Required. 10/05/19 22:49 PEEP No Result Required. 10/05/19 22:49 Pressure Support Vent No Result Required. 10/05/19 22:49 Sodium 141 mmol/L (136-145) 10/05/19 06:10 Potassium 4.0 mmol/L (3.5-5.1) 10/05/19 06:10 Chloride 107 mmol/L (98-107) 10/05/19 06:10 Carbon Dioxide 26 mmol/L (21-32) 10/05/19 06:10 Anion Gap 8 MMOL/L (8-16) 10/05/19 06:10 BUN 23.5 mg/dL (7-18) H 10/05/19 06:10 Creatinine 0.7 mg/dL (0.55-1.3) 10/05/19 06:10 Est GFR (CKD-EPI)AfAm 105.50 10/05/19 06:10 Est GFR (CKD-EPI)NonAf 91.03 10/05/19 06:10 Random Glucose 100 mg/dL (74-106) 10/05/19 06:10 Calcium 7.4 mg/dL (8.5-10.1) L 10/05/19 06:10 Phosphorus 3.1 mg/dL (2.5-4.9) 09/25/19 06:14 Magnesium 2.3 mg/dL (1.8-2.4) 09/25/19 06:14 Ferritin 1087.1 ng/ml (8-388) H 10/01/19 13:33 Total Bilirubin 1.3 mg/dL (0.2-1) H 10/05/19 06:10 AST 30 U/L (15-37) 10/05/19 06:10 ALT 75 U/L (13-61) H 10/05/19 06:10 Alkaline Phosphatase 87 U/L (45-117) 10/05/19 06:10 LD Total 481 U/L (87-246) H 10/01/19 13:33 Creatine Kinase 31 U/L (26-308) 09/23/19 23:10 Troponin I 0.03 ng/ml (0.00-0.05) 09/23/19 23:10 C-Reactive Protein 1.0 MG/DL (0.00-0.3) H 10/01/19 13:33 B-Natriuretic Peptide 4358.8 pg/ml (5-450) H 09/23/19 18:40 Total Protein 5.7 g/dl (6.4-8.2) L 10/05/19 06:10 Albumin 2.1 g/dl (3.4-5.0) L 10/05/19 06:10 Urine Color Yellow 09/24/19 10:46 Urine Appearance Error 09/24/19 10:46 Urine pH 6.5 (5.0-8.0) 09/24/19 10:46 Ur Specific [place] 1.017 (1.010-1.035) 09/24/19 10:46 Urine Protein Negative (NEGATIVE) 09/24/19 10:46 Urine Glucose (UA) Negative (NEGATIVE) 09/24/19 10:46 Urine Ketones Negative (NEGATIVE) 09/24/19 10:46 Urine Blood Negative (NEGATIVE) 09/24/19 10:46 Urine Nitrite Negative (NEGATIVE) 09/24/19 10:46 Urine Bilirubin Negative (NEGATIVE) 09/24/19 10:46 Urine Urobilinogen 0.2 mg/dL (0.2-1.0) 09/24/19 10:46 Ur Leukocyte Esterase Negative (NEGATIVE) 09/24/19 10:46 Vancomycin Pre-Dose 7.6 ug/ml (5-10) 09/27/19 10:50 COVID-19 (MAYA) Not detected (Not Detected) 09/23/19 20:00 SARS-CoV-2 Ab Interp Non-reactive (NONREACTIVE) 09/30/19 16:00 Active Medications Acetaminophen (Tylenol -) 650 mg PO Q6H PRN PRN Reason: FEVER Last Admin: 09/24/19 11:15 Dose: 650 mg Documented by: Albuterol Sulfate (Ventolin Hfa Inhaler -) 2 puff IH Q4H PRN PRN Reason: SHORT OF BREATH/WHEEZING Last Admin: 10/02/19 21:11 Dose: 2 puff Documented by: Apixaban (Eliquis -) 5 mg PO BID [facility] Last Admin: 10/05/19 22:30 Dose: Not Given Documented by: Atorvastatin Calcium (Lipitor -) 40 mg PO HS [facility] Last Admin: 10/05/19 22:30 Dose: Not Given Documented by: Chlorhexidine Gluconate (Hibiclens For Decolonization -) 1 applic TP HS [facility] Diltiazem HCl (Cardizem Cd -) 180 mg PO DAILY [facility] Last Admin: 10/05/19 13:53 Dose: 180 mg Documented by: Furosemide (Lasix -) 20 mg PO DAILY [facility] Last Admin: 10/05/19 13:53 Dose: 20 mg Documented by: Propofol (Diprivan -) 1,000,000 mcg in 100 mls @ 1.852 mls/hr IVPB TITR [facility]; Protocol Metoprolol Succinate (Toprol Xl -) 100 mg PO BID [facility] Last Admin: 10/05/19 22:31 Dose: Not Given Documented by: Mirtazapine (Remeron -) 15 mg PO HS [facility] Last Admin: 10/05/19 22:30 Dose: Not Given Documented by: Mupirocin (Bactroban Ointment (For Decolonization) -) 1 applic NS BID [facility] Stop: 10/10/19 23:14 Pantoprazole Sodium (Protonix -) 40 mg PO DAILY [facility] Last Admin: 10/05/19 13:53 Dose: 40 mg Documented by: Prednisone (Deltasone -) 20 mg PO DAILY [facility] Last Admin: 10/05/19 13:53 Dose: 20 mg Documented by: CT chest 10/02 TECHNIQUE: Sequential axial images were obtained from the thoracic inlet through the domes of the diaphragm following the administration of intravenous contrast material. CTA pulmonary embolism protocol was utilized, including coronal and oblique coronal MIP images. There is good opacification of the central pulmonary vasculature with no filling defects suspicious for pulmonary embolism. Evaluation of lung olvera demonstrates diffuse groundglass interstitial infiltrates throughout both lungs. There is a moderate right pleural effusion and a smaller left pleural effusion. This appearance is suspicious for Covid-19 pneumonitis. Since a prior study of 09/02/2019 there appears to be slight improvement. Clinical correlation is advised. Evaluation of the mediastinum demonstrates multiple prominent lymph nodes throughout the mediastinal chains. The largest node measures 1.8 cm within the AP window. The degree of adenopathy has not significantly changed. There is no evidence of mediastinal masses or fluid collections. The heart is mildly enlarged. The patient is S/P CABG procedure. There is mild dilatation of the thoracic aorta with the ascending aorta measuring 4.2 cm, the aortic arch measuring 3.6 cm and the descending thoracic aorta measuring 2.8 cm in widest AP diameter. There is no evidence of aortic dissection. There is no evidence of acute bony abnormalities. Limited evaluation of the upper abdomen demonstrates a 1.9 cm left adrenal nodule that most likely represents a benign adenoma. There is also a small hypodensity within the left lobe of the liver that most likely represents a tiny cyst, however, it is too small to accurately characterize. This finding is also stable since the previous exam. There is no evidence of acute bony pathology. IMPRESSION: 1. No evidence of pulmonary embolism. 2. Ectatic thoracic aorta with mild dilatation as described above. 3. Diffuse groundglass infiltrates and bilateral pleural effusions suspicious for Covid-19 pneumonitis. Slight improvement since 09/02/2019. 4. Mediastinal lymphadenopathy, unchanged. 5. Left adrenal nodule, unchanged. Please see above discussion. ASSESSMENT/PLAN: 78 year old male with PMH Afib (on Eliquis), angina, CHF, HTN, HLD, GI Bleed, suspected COVID (although negative COVID test and Ab), and depression admitted to ICU for acute hypoxic respiratory failure with suspicion for COVID pneumonitis. Given that pt has elevated WBC, elevated inflammatory markers, and findings on CT chest, it is likley pt has COVID pneumonitis. Neuro/psych Depression - Sedated on midazolam and fentanyl - Do neuro checks - assess mental status - hold remeron Cardiac Afib, CHF, HTN, HLD - currently normotensive. - hold diltiazem, furosemide, metoprolol due to - c/w eliquis, lipitor - Troponin 0.09. F/u repeat troponin - monitor and maintain MAP >65. - transfuse if Hb <8, due to cardiac history Pulmonary Possible COVID pneumonitis H/o home oxygen use - vent settings: 14/400/100%/10 - ETT position: 22 @ the lip - c/w prednisone - Hold albuterol inhaler - CT chest as above. - CXR pending read. - f/u ABG GI h/o GI bleed - no acute issues - c/w protonix Renal No acute issues -Monitor I/O's, Cr and electrolytes ID Possible COVID pneumonitis Leukocytosis - c/w IV tylenol PRN for fevers - trend inflammatory markers. Currently increasing trend. - f/u cultures - c/w vanc & zosyn - ID consulted. Pending recommendations. - COVID test negative on 09/22 - SARS COV-2 negative 09/29 - f/u repeat COVID test and SARS CoV2 Ab FEN - No standing fluids - Maintain and replete electrolytes - NPO LTD -Beatrice 10/04 Ppx -DVT: SCD -PPI: PPI Dispo: We will continue to follow the patient. Thank you for this consultative opportunity. Visit type - Medication Review Med list reviewed for High Risk Meds patients 65 and older: Yes - Emergency Visit Emergency Visit: Yes ED Registration Date: 09/23/19 Care time: The patient presented to the Emergency Department on the above date and was hospitalized for further evaluation of their emergent condition. - New Patient This patient is new to me today: Yes Date on this admission: 10/06/19 - Critical Care Critical Care patient: Yes Total Critical Care Time (in minutes): 40 Critical Care Statement: The care of this patient involved high complexity decision making to prevent further life threatening deterioration of the patient's condition and/or to evaluate & treat vital organ system(s) failure or risk of failure. ATTENDING PHYSICIAN STATEMENT I saw and evaluated the patient. I reviewed the resident's note and discussed the case with the resident. I agree with the resident's findings and plan as documented. SUBJECTIVE: OBJECTIVE: ASSESSMENT AND PLAN:
[2019-10-06] MEDS: MUPIROCIN 2% TOPICAL OINTMENT FOR DECOLONIZATION NS SCH ×3 (00:58→21:22)
[2019-10-06] MEDS ORDERED: ACETAMINOPHEN 1000 MG/100 ML VIAL (NON FORMULARY) IVPB PRN (01:04)
[2019-10-06] MEDS: FENTANYL IVPB 500 MCG/100 ML BAG IVPB SCH ×2 (01:10→21:29)
[2019-10-06] MEDS: MIDAZOLAM IN 0.9 % SOD.CHLORID 100 MG/100 ML PLAST..BAG IVPB SCH ×2 (01:10→21:28)
[2019-10-06 01:28] LABS: ARTERIAL BLD GAS O2 SATURATION 98.1 mmHg (95-98); ARTERIAL BLOOD GAS BASE EXCESS -1.8 mmol/L (-2-2); ARTERIAL BLOOD GAS PO2 109.2 mmHg (80-100); ARTERIAL BLOOD GAS pH 7.424 (7.350-7.450)
[2019-10-06 01:30] LABS: ALLENS TEST POSITIVE
[2019-10-06 01:31] LABS: VENT MODE A/C; VENT RATE 14
[2019-10-06] MEDS ORDERED: FENTANYL NS IVPB 500 MCG/100 ML BAG IVPB ONE (05:21)
[2019-10-06 06:34] LABS: BASO % 0.1 % (0-2.0); HEMATOCRIT 28.4 % (35.4-49); LYMPH % 4.1 % (8-40); MCH 29.4 pg (25.7-33.7); MCHC 31.9 g/dl (32.0-35.9); MEAN CELL VOLUME 92.4 fl (80-96); MEAN PLT VOLUME 8.1 fl (7.5-11.1); MONO % 2.2 % (3.8-10.2); NEUT % 93.6 % (42.8-82.8); PLATELET COUNT 167 K/MM3 (134-434); RBC 3.07 M/mm3 (4.00-5.60); RDW 17.3 % (11.9-15.9); WHITE BLOOD COUNT 22.9 K/mm3 (4.0-10.0)
[2019-10-06] MEDS ORDERED: SODIUM CHLORIDE 250 ML IV STA ×2 (06:40→07:31)
[2019-10-06 07:02] LABS: ALBUMIN 1.9 g/dl (3.4-5.0); BILIRUBIN,TOTAL 1.4 mg/dL (0.2-1); BLOOD UREA NITROGEN 31.9 mg/dL (7-18); CALCIUM 7.3 mg/dL (8.5-10.1); CREATININE 1.1 mg/dL (0.55-1.3); MAGNESIUM 2.1 mg/dL (1.8-2.4); PHOSPHOROUS 4.4 mg/dL (2.5-4.9); TOT PROT 5.3 g/dl (6.4-8.2)
[2019-10-06] MEDS: NOREPINEPHRINE NS PREMIX 16,000 MCG/500 ML BAG IVPB SCH (07:15)
[2019-10-06 07:19] LABS: EPI CELLS 23 /uL (0-25.1); HYALINE CASTS 8 /uL (0-3.1); PH,URINE 5.5 (5.0-8.0); URINE APPEARANCE CLEAR; URINE BACTERIA 72 /uL (0-1359); URINE BILIRUBIN NEGATIVE (NEGATIVE); URINE COLOR YELLOW; URINE GLUCOSE (UA) NEGATIVE (NEGATIVE); URINE KETONE NEGATIVE (NEGATIVE); URINE LEUK ESTERASE NEGATIVE (NEGATIVE); URINE NITRITE NEGATIVE (NEGATIVE); URINE PROTEIN NEGATIVE (NEGATIVE); URINE RBC 14 /uL (0-23.9); URINE UROBILINOGEN 0.2 mg/dL (0.2-1.0); URINE WBC 6 /uL (0-25.8)
[2019-10-06] MEDS ORDERED: NOREPINEPHRINE BITARTRATE 4 MG/4 ML ML IV ONE (07:38)
[2019-10-06] MEDS ORDERED: PROPOFOL 1,000,000 MCG/100 ML VIAL ONE (08:33)
--- NOTE | 2019-10-06 08:34 | PROC ---
Central Line Insertion Indication: Vasopressor Risks and Benefits Explained: Yes Consent on Chart: Yes Central Line: Triple Lumen Catheter Anesthesia: other Sterile Technique: Yes Ultrasound Guided Assistance: Yes Position: Right Internal Jugular Post Insertion: Yes: Bilateral Breath Sounds, Bilateral Chest Expansion, Chest X-Ray Ordered Sterile Dressing Applied: Yes (Emergently done) Remarks: Emergently done
[2019-10-06] MEDS: PROPOFOL 1,000,000 MCG/100 ML VIAL IVPB SCH (08:45)
[2019-10-06] MEDS ORDERED: PIPERACILLIN/TAZOBACTAM 3.375 GM VIAL IVPB ONE ×2 (08:59→16:22)
[2019-10-06] MEDS ORDERED: DEXTROSE 5%-WATER - 50 ML IVPB ONE ×2 (08:59→16:22)
[2019-10-06] MEDS: PIPERACILLIN/TAZOB 3.375 GM 3.375 GM in DEXTROSE 5%-WATER - 50 ML IVPB SCH ×2 (09:00→17:04)
[2019-10-06] MEDS ORDERED: VASOPRESSIN 20 UNITS/ML VIAL IV ONE ×2 (09:06→14:44)
[2019-10-06] MEDS: APIXABAN 5 MG TABLET PO SCH ×2 (09:19→21:27)
[2019-10-06] MEDS: VASOPRESSIN 40 UNITS in SODIUM CHLORIDE 98 ML IVPB SCH (09:20)
[2019-10-06 09:34] LABS: ANISOCYTOSIS 0; MACROCYTOSIS 0; PLATELET ESTIMATE NORMAL
[2019-10-06 09:43] LABS: ARTERIAL BLD GAS O2 SATURATION 92.4 mmHg (95-98); ARTERIAL BLOOD GAS BASE EXCESS -4.1 mmol/L (-2-2); ARTERIAL BLOOD GAS PO2 68.4 mmHg (80-100); ARTERIAL BLOOD GAS pH 7.327 (7.350-7.450)
[2019-10-06 09:44] LABS: ALLENS TEST POSITIVE
[2019-10-06 09:45] LABS: VENT MODE AC; VENT RATE 14
[2019-10-06] MEDS ORDERED: FENTANYL IVPB 500 MCG/100 ML BAG IVPB ONE (09:57)
[2019-10-06] MEDS ORDERED: PANTOPRAZOLE 40 MG TABLET PO SCH (10:00)
[2019-10-06] MEDS ORDERED: VANCOMYCIN 1 GM in D5W (PRE-DOCKED) 1,000 MG/250 ML IVPB SCH (10:00)
[2019-10-06] MEDS ORDERED: predniSONE 20 MG TABLET (UD) PO SCH (10:00)
[2019-10-06] MEDS ORDERED: FUROSEMIDE 20 MG TABLET (FP) PO SCH (10:00)
--- NOTE | 2019-10-06 10:23 | PN ---
Progress Note, Physician History of Present Illness: Sedated and intubated on pressors via RIJ for acute on chronic hypoxic respiratory failure. Remains in NSR post DCCV yesterday. - Current Medication List Current Medications: Active Medications Acetaminophen (Tylenol -) 650 mg PO Q6H PRN PRN Reason: FEVER Acetaminophen (Ofirmev Injection -) 1,000 mg IVPB Q6H PRN PRN Reason: FEVER Stop: 10/07/19 01:05 Last Admin: 10/06/19 01:36 Dose: 1,000 mg Documented by: Albuterol Sulfate (Ventolin Hfa Inhaler -) 2 puff IH Q4H PRN PRN Reason: SHORT OF BREATH/WHEEZING Apixaban (Eliquis -) 5 mg PO BID [facility] Last Admin: 10/06/19 09:19 Dose: 5 mg Documented by: Atorvastatin Calcium (Lipitor -) 40 mg PO HS [facility] Chlorhexidine Gluconate (Hibiclens For Decolonization -) 1 applic TP HS [facility] Diltiazem HCl (Cardizem Cd -) 180 mg PO DAILY [facility] Fentanyl (Sublimaze Ivpb) 500 mcg in 100 mls @ 10 mls/hr IVPB TITR [facility]; Protocol Last Admin: 10/06/19 01:10 Dose: 100 mcg/hr, 20 mls/hr Documented by: Midazolam HCl (Midazolam 100mg/100ml-0.9%Nacl) 100 mg in 100 mls @ 1 mls/hr IVPB TITR [facility]; Protocol Last Infusion: 10/06/19 06:36 Dose: 4 mg/hr, 4 mls/hr Documented by: Norepinephrine Bitartrate (Levophed Bag - Ns) 16,000 mcg in 500 mls @ 9.375 mls/hr IVPB TITR [facility]; Protocol Last Admin: 10/06/19 07:15 Dose: 5 mcg/min, 9.375 mls/hr Documented by: Piperacillin Sod/Tazobactam (Sod 3.375 gm/ Dextrose) 50 mls @ 100 mls/hr IVPB Q8H-IV [facility]; Protocol Last Admin: 10/06/19 09:00 Dose: 100 mls/hr Documented by: Propofol (Diprivan -) 1,000,000 mcg in 100 mls @ 1.92 mls/hr IVPB TITR [facility]; Protocol Last Admin: 10/06/19 08:45 Dose: 25 mcg/kg/min, 9.6 mls/hr Documented by: Vasopressin 40 units/ Sodium (Chloride) 100 mls @ 5 mls/hr IVPB ASDIR [facility]; Protocol Metoprolol Succinate (Toprol Xl -) 100 mg PO BID [facility] Mirtazapine (Remeron -) 15 mg PO HS [facility] Mupirocin (Bactroban Ointment (For Decolonization) -) 1 applic NS BID [facility] Stop: 10/10/19 23:14 Last Admin: 10/06/19 09:24 Dose: 1 applic Documented by: Pantoprazole Sodium (Protonix -) 40 mg PO DAILY [facility] Prednisone (Deltasone -) 20 mg PO DAILY [facility] Vancomycin HCl (Vancomycin (Pre-Docked)) 1,000 mg IVPB DAILY [facility]; Protocol Stop: 10/07/19 09:59 - Objective Vital Signs: Vital Signs Temperature 98.9 F 10/06/19 06:00 Pulse Rate 77 10/06/19 06:00 Respiratory Rate 21 H 10/06/19 08:10 Blood Pressure 90/56 L 10/06/19 06:00 O2 Sat by Pulse Oximetry (%) 90 L 10/06/19 06:00 Constitutional: Yes: Other (Sedated and intubated) Cardiovascular: Yes: Regular Rate and Rhythm Respiratory: Yes: Intubated, Mechanically Ventilated Gastrointestinal: Yes: Soft, Hypoactive Bowel Sounds Genitourinary: Yes: Smiley Present Edema: No Labs: CBC, BMP 10/06/19 05:40 10/06/19 05:40 INR, PTT INR 1.97 (0.83-1.09) H 09/23/19 18:40 - ....Imaging Chest X-ray: Report Reviewed (Increased diffuse airspace disease c/w COVID-19 despite multiple negative PCR tests) EKG: Report Reviewed (ECG: NSR @ 85 PAC lateral TWI Tele: NSR) Problem List - Problems (1) Acute on chronic diastolic (congestive) heart failure Code(s): I50.33 - ACUTE ON CHRONIC DIASTOLIC (CONGESTIVE) HEART FAILURE (2) Acute respiratory failure with hypoxia Code(s): J96.01 - ACUTE RESPIRATORY FAILURE WITH HYPOXIA (3) Aortic valve stenosis Code(s): I35.0 - NONRHEUMATIC AORTIC (VALVE) STENOSIS Qualifiers: Cardiac valve disease etiology: nonrheumatic Qualified Code(s): I35.0 - Nonrheumatic aortic (valve) stenosis (4) Atrial flutter Code(s): I48.92 - UNSPECIFIED ATRIAL FLUTTER Qualifiers: Atrial flutter type: typical Qualified Code(s): I48.3 - Typical atrial flu tter (5) CAD (coronary artery disease) Code(s): I25.10 - ATHSCL HEART DISEASE OF [place] CORONARY ARTERY W/O ANG PCTRS Qualifiers: Coronary Disease-Associated Artery/Lesion type: [place] artery [place] vs. transplanted heart: [place] heart Associated angina: without angina Qualified Code(s): I25.10 - Atherosclerotic heart disease of [place] coronary artery without angina pectoris (6) HTN (hypertension) Code(s): I10 - ESSENTIAL (PRIMARY) HYPERTENSION Qualifiers: Hypertension type: essential hypertension Qualified Code(s): I10 - Essential (primary) hypertension (7) Hx of CABG Code(s): Z95.1 - PRESENCE OF AORTOCORONARY BYPASS GRAFT (8) Hypercholesterolemia Code(s): E78.00 - PURE HYPERCHOLESTEROLEMIA, UNSPECIFIED (9) S/P AVR (aortic valve replacement) Code(s): Z95.2 - PRESENCE OF PROSTHETIC HEART VALVE (10) S/P left atrial appendage ligation Code(s): Z98.890 - OTHER SPECIFIED POSTPROCEDURAL STATES (11) Suspected COVID-19 virus infection Code(s): Z20.828 - CONTACT W AND EXPOSURE TO [facility] VIRAL COMMUNICABLE DISEASES Assessment/Plan Echo 09/03/2019 Post-op septal motion, normal LVEF 50-55%, mod cLVH, normal RV size and fxn, mild LAE, mild MR, TR, bioAVR, mild AR, restrictive physiology Echocardiography October 12, 2018 revealed mild degree of concentric left ventricular hypertrophy with normal left ventricular systolic function and estimated LVEF between 65-70%, mild left atrial dilatation, normal right ventricular size and systolic function, aortic valve bioprosthesis with no aortic valve insufficiency, moderately dilated ascending aorta, mild thickening of the mitral valve leaflets with mild mitral valve regurgitation, mild to moderate tricuspid valve regurgitation with calculated RVSP of [address]: Small-moderate right and very small left effusion, pulm edema TAA 3.9 cm 1. Recurrent acute hypoxic respiratory failure related to bronchopneumonia with probable sepsis syndrome, coronavirus/COVID 19- residual infiltrates 2. Clinical presentation is consistent with chronic class I-II NYHA classification LV diastolic heart failure, no evidence of acute decompensation- as outlined in the prior notes chest x-ray findings related to patient's recent coronavirus/COVID 19 pneumonitis- elevated BNP level related to patient's chronic heart failure syndrome and persistence of atrial arrhythmia/atrial flutter 3. Paroxysmal atrial flutter with periods rapid ventricular response now in SR post DCCV [id number] score of 5 on DOAC's/Eliquis 4. CAD post CABG with evidence of demand ischemia related to the above-noted clinical presentation angina pectoris 5. Aortic valve stenosis post SAVR/bio-prosthesis- with LA appendage ligation 6. Hypertensive cardiovascular disease 7. Hypercholesterolemia 8. History of altered mental status etiology of which was unclear- prior history of clinical depression 9. History of bacteremia- endocarditis unlikely 10. Anemia PLAN: 1. Wean pressors for MAP>65 mmHg 2. Wean FIO2 and PEEP to maintain saO2, BD, IV steroids with GI protection, empiric abx course 3. Start sotalol 80 bid pending hemodynamic stability 4. Continue Atorvastatin 40 qd, Eliquis 5 bid 5. Holding off diuresis monitoring of volume status, renal function and elec trolytes
--- NOTE | 2019-10-06 10:48 | PN ---
Progress Note (short form) - Note Progress Note: pt examined today pt is intubated on pressors support Vital Signs - 24 hr 10/05/19 10/05/19 10/05/19 12:20 12:35 12:57 Temperature 98.2 F Pulse Rate 97 H 89 89 Respiratory 30 H 26 H 20 Rate Blood Pressure 105/67 120/70 125/65 O2 Sat by Pulse 93 L 96 96 Oximetry (%) 10/05/19 10/05/19 10/05/19 14:00 18:00 20:49 Temperature 98.3 F 98.5 F Pulse Rate 73 85 Respiratory 22 H 22 H Rate Blood Pressure 109/57 L 119/63 O2 Sat by Pulse 99 93 L 93 L Oximetry (%) 10/05/19 10/05/19 10/05/19 21:00 22:00 23:45 Temperature 97.3 F L Pulse Rate 88 Respiratory 20 14 Rate Blood Pressure 119/66 O2 Sat by Pulse 92 L 92 L Oximetry (%) 10/06/19 10/06/19 10/06/19 02:00 04:00 06:00 Temperature 100.1 F H 98.9 F Pulse Rate 80 77 Respiratory 23 H 18 20 Rate Blood Pressure 97/56 L 90/56 L O2 Sat by Pulse 93 L 97 90 L Oximetry (%) 10/06/19 08:10 Temperature Pulse Rate Respiratory 21 H Rate Blood Pressure O2 Sat by Pulse Oximetry (%) Current Medications Generic Name Dose Route Start Last Admin Trade Name Freq PRN Reason Stop Dose Admin Acetaminophen 650 mg 10/06/19 00:25 Tylenol - PO Q6H PRN FEVER Acetaminophen 1,000 mg 10/06/19 01:04 10/06/19 01:36 Ofirmev Injection - IVPB 10/07/19 01:05 1,000 mg Q6H PRN Administration FEVER Albuterol Sulfate 2 puff 10/06/19 00:25 Ventolin Hfa Inhaler - IH Q4H PRN SHORT OF BREATH/WHEEZING Apixaban 5 mg 10/06/19 10:00 10/06/19 09:19 Eliquis - PO 5 mg BID MAGI Administration Atorvastatin Calcium 40 mg 10/06/19 22:00 Lipitor - PO HS [facility] Chlorhexidine Gluconate 1 applic 10/06/19 22:00 Hibiclens For Decolonization - TP HS [facility] Diltiazem HCl 180 mg 10/06/19 10:00 Cardizem Cd - PO DAILY [facility] Fentanyl 500 mcg in 100 mls @ 10 mls/hr 10/06/19 00:45 10/06/19 01:10 Sublimaze Ivpb IVPB 100 mcg/hr TITR MAGI 20 mls/hr Administration Protocol 50 MCG/HR Midazolam HCl 100 mg in 100 mls @ 1 mls/hr 10/06/19 00:45 10/06/19 06:36 Midazolam 100mg/100ml-0.9%Nacl IVPB 4 mg/hr TITR MAGI 4 mls/hr Infusion Protocol 1 MG/HR Norepinephrine Bitartrate 16,000 mcg in 500 mls @ 9.375 mls/hr 10/06/19 07:45 10/06/19 07:15 Levophed Bag - Ns IVPB 5 mcg/min TITR MAGI 9.375 mls/hr Administration Protocol 5 MCG/MIN Piperacillin Sod/Tazobactam 50 mls @ 100 mls/hr 10/06/19 08:45 10/06/19 09:00 Sod 3.375 gm/ Dextrose IVPB 100 mls/hr Q8H-IV MAGI Administration Protocol Propofol 1,000,000 mcg in 100 mls @ 1.92 mls/hr 10/06/19 08:45 10/06/19 08:45 Diprivan - IVPB 25 mcg/kg/min TITR MAGI 9.6 mls/hr Administration Protocol 5 MCG/KG/MIN Vasopressin 40 units/ Sodium 100 mls @ 5 mls/hr 10/06/19 09:15 Chloride IVPB ASDIR MAGI Protocol 2 UNITS/HR Metoprolol Succinate 100 mg 10/06/19 10:00 Toprol Xl - PO BID [facility] Mirtazapine 15 mg 10/06/19 22:00 Remeron - PO HS [facility] Mupirocin 1 applic 10/05/19 23:15 10/06/19 09:24 Bactroban Ointment (For Decolonization) - NS 10/10/19 23:14 1 applic BID [facility] Administration Pantoprazole Sodium 40 mg 10/06/19 10:00 Protonix - PO DAILY [facility] Prednisone 20 mg 10/06/19 10:00 Deltasone - PO DAILY [facility] Vancomycin HCl 1,000 mg 10/06/19 10:00 Vancomycin (Pre-Docked) IVPB 10/07/19 09:59 DAILY [facility] Protocol Laboratory Results - last 24 hr 10/05/19 10/05/19 10/06/19 06:10 22:49 01:20 WBC RBC Hgb Hct MCV MCH MCHC RDW Plt Count MPV Absolute Neuts (auto) Neutrophils % Neutrophils % (Manual) 90.1 H Band Neutrophils % 0.0 Lymphocytes % Lymphocytes % (Manual) 5.9 L D Monocytes % Monocytes % (Manual) 3 L Eosinophils % Eosinophils % (Manual) 0.0 Basophils % Basophils % (Manual) 0.0 Myelocytes % (Man) 1 D Promyelocytes % (Man) 0 Blast Cells % (Manual) 0 Nucleated RBC % 0 Metamyelocytes 0 D Hypochromia 1+ Platelet Estimate Normal Polychromasia 1+ Poikilocytosis 1+ Anisocytosis 2+ Microcytosis 1+ Macrocytosis 1+ ESR D-Dimer Anticoagulation Therapy No Result Required. No Result Required. Puncture Site Right radial Right radial Patient Temperature No Result Required. No Result Required. ABG pH 7.477 H 7.424 ABG pCO2 30.00 L 34.60 L ABG pO2 47.5 L 109.2 H ABG HCO3 21.7 L 22.1 ABG O2 Sat (Measured) 86.8 L 98.1 H ABG O2 Content No Result Required. No Result Required. ABG Base Excess -1.0 -1.8 Polo Test Positive Positive Patient On Oxygen Yes Yes O2 Delivery Device Nrb mask Vent Oxygen Flow Rate No Result Required. 100% Vent Mode Hfnc A/c Vent Rate No Result Required. 14 Mechanical Rate No Result Required. Yes PEEP No Result Required. 10.0 Pressure Support Vent No Result Required. 400 Sodium Potassium Chloride Carbon Dioxide Anion Gap BUN Creatinine Est GFR (CKD-EPI)AfAm Est GFR (CKD-EPI)NonAf Random Glucose Calcium Phosphorus Magnesium Ferritin Total Bilirubin AST ALT Alkaline Phosphatase LD Total Troponin I C-Reactive Protein Total Protein Albumin Urine Color Urine Appearance Urine pH Ur Specific [place] Urine Protein Urine Glucose (UA) Urine Ketones Urine Blood Urine Nitrite Urine Bilirubin Urine Urobilinogen Ur Leukocyte Esterase Urine WBC (Auto) Urine RBC (Auto) Urine Casts (Auto) U Pathogenic Cast Auto U Epithel Cells (Auto) Urine Bacteria (Auto) 10/06/19 10/06/19 10/06/19 01:20 05:40 05:40 WBC 22.9 H RBC 3.07 L Hgb 9.0 L Hct 28.4 L D MCV 92.4 MCH 29.4 MCHC 31.9 L RDW 17.3 H Plt Count 167 D MPV 8.1 Absolute Neuts (auto) 21.4 H Neutrophils % 93.6 H Neutrophils % (Manual) 87.4 H Band Neutrophils % 1.0 Lymphocytes % 4.1 L D Lymphocytes % (Manual) 9.7 D Monocytes % 2.2 L Monocytes % (Manual) 2 L Eosinophils % 0.0 Eosinophils % (Manual) 0.0 Basophils % 0.1 Basophils % (Manual) 0.0 Myelocytes % (Man) 0 D Promyelocytes % (Man) 0 Blast Cells % (Manual) 0 Nucleated RBC % 0 Metamyelocytes 0 Hypochromia 0 Platelet Estimate Normal Polychromasia 0 Poikilocytosis 0 Anisocytosis 0 Microcytosis 0 Macrocytosis 0 ESR D-Dimer Anticoagulation Therapy Puncture Site Patient Temperature ABG pH ABG pCO2 ABG pO2 ABG HCO3 ABG O2 Sat (Measured) ABG O2 Content ABG Base Excess Polo Test Patient On Oxygen O2 Delivery Device Oxygen Flow Rate Vent Mode Vent Rate Mechanical Rate PEEP Pressure Support Vent Sodium 142 Potassium 4.0 Chloride 108 H Carbon Dioxide 26 Anion Gap 7 L BUN 31.9 H Creatinine 1.1 Est GFR (CKD-EPI)AfAm 74.65 Est GFR (CKD-EPI)NonAf 64.41 Random Glucose 115 H Calcium 7.3 L Phosphorus 4.4 Magnesium 2.1 Ferritin Total Bilirubin 1.4 H AST 34 ALT 70 H Alkaline Phosphatase 73 LD Total 548 H Troponin I 0.09 H C-Reactive Protein Total Protein 5.3 L Albumin 1.9 L Urine Color Urine Appearance Urine pH Ur Specific [place] Urine Protein Urine Glucose (UA) Urine Ketones Urine Blood Urine Nitrite Urine Bilirubin Urine Urobilinogen Ur Leukocyte Esterase Urine WBC (Auto) Urine RBC (Auto) Urine Casts (Auto) U Pathogenic Cast Auto U Epithel Cells (Auto) Urine Bacteria (Auto) 10/06/19 10/06/19 10/06/19 05:40 05:40 05:40 WBC RBC Hgb Hct MCV MCH MCHC RDW Plt Count MPV Absolute Neuts (auto) Neutrophils % Neutrophils % (Manual) Band Neutrophils % Lymphocytes % Lymphocytes % (Manual) Monocytes % Monocytes % (Manual) Eosinophils % Eosinophils % (Manual) Basophils % Basophils % (Manual) Myelocytes % (Man) Promyelocytes % (Man) Blast Cells % (Manual) Nucleated RBC % Metamyelocytes Hypochromia Platelet Estimate Polychromasia Poikilocytosis Anisocytosis Microcytosis Macrocytosis ESR 65 H D-Dimer 494 Anticoagulation Therapy Puncture Site Patient Temperature ABG pH ABG pCO2 ABG pO2 ABG HCO3 ABG O2 Sat (Measured) ABG O2 Content ABG Base Excess Polo Test Patient On Oxygen O2 Delivery Device Oxygen Flow Rate Vent Mode Vent Rate Mechanical Rate PEEP Pressure Support Vent Sodium Potassium Chloride Carbon Dioxide Anion Gap BUN Creatinine Est GFR (CKD-EPI)AfAm Est GFR (CKD-EPI)NonAf Random Glucose Calcium Phosphorus Magnesium Ferritin 1337.9 H Total Bilirubin AST ALT Alkaline Phosphatase LD Total Troponin I C-Reactive Protein 16.6 H Total Protein Albumin Urine Color Urine Appearance Urine pH Ur Specific [place] Urine Protein Urine Glucose (UA) Urine Ketones Urine Blood Urine Nitrite Urine Bilirubin Urine Urobilinogen Ur Leukocyte Esterase Urine WBC (Auto) Urine RBC (Auto) Urine Casts (Auto) U Pathogenic Cast Auto U Epithel Cells (Auto) Urine Bacteria (Auto) 10/06/19 10/06/19 10/06/19 05:40 06:00 08:20 WBC RBC Hgb Hct MCV MCH MCHC RDW Plt Count MPV Absolute Neuts (auto) Neutrophils % Neutrophils % (Manual) Band Neutrophils % Lymphocytes % Lymphocytes % (Manual) Monocytes % Monocytes % (Manual) Eosinophils % Eosinophils % (Manual) Basophils % Basophils % (Manual) Myelocytes % (Man) Promyelocytes % (Man) Blast Cells % (Manual) Nucleated RBC % Metamyelocytes Hypochromia Platelet Estimate Polychromasia Poikilocytosis Anisocytosis Microcytosis Macrocytosis ESR D-Dimer Anticoagulation Therapy No Result Required. Puncture Site Right radial Patient Temperature No Result Required. ABG pH 7.327 L ABG pCO2 42.40 ABG pO2 68.4 L ABG HCO3 21.7 L ABG O2 Sat (Measured) 92.4 L ABG O2 Content No Result Required. ABG Base Excess -4.1 L Polo Test Positive Patient On Oxygen Yes O2 Delivery Device V Oxygen Flow Rate 100 Vent Mode Ac Vent Rate 14 Mechanical Rate V PEEP 10.0 Pressure Support Vent 400 Sodium Potassium Chloride Carbon Dioxide Anion Gap BUN Creatinine Est GFR (CKD-EPI)AfAm Est GFR (CKD-EPI)NonAf Random Glucose Calcium Phosphorus Magnesium Ferritin Total Bilirubin AST ALT Alkaline Phosphatase LD Total Troponin I 0.11 H C-Reactive Protein Total Protein Albumin Urine Color Yellow Urine Appearance Clear Urine pH 5.5 Ur Specific [place] 1.010 Urine Protein Negative Urine Glucose (UA) Negative Urine Ketones Negative Urine Blood 1+ H Urine Nitrite Negative Urine Bilirubin Negative Urine Urobilinogen 0.2 Ur Leukocyte Esterase Negative Urine WBC (Auto) 6 Urine RBC (Auto) 14 Urine Casts (Auto) 8 U Pathogenic Cast Auto Rare granular cast U Epithel Cells (Auto) 23 Urine Bacteria (Auto) 72 sedated S1 S2 Irregular Lungs decreased breath sounds Abd- soft, NT No edema A/P acute respiratory failure Fever, pneumonitis CHF decompensation Aflutter-s/p cardioversion --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 -- on pressor support --= vent management per ICU team -- spoke with ICU MD -- guarded prognosis -- iv antibiotics -- ID follow up -- spoke with son- - Shreyas-- [phone]-- he will be coming to [facility] from [facility]-- aware of the situation and guarded prognosis Problem List - Problems (1) Acute on chronic diastolic (congestive) heart failure Code(s): I50.33 - ACUTE ON CHRONIC DIASTOLIC (CONGESTIVE) HEART FAILURE (2) Acute respiratory failure with hypoxia Code(s): J96.01 - ACUTE RESPIRATORY FAILURE WITH HYPOXIA (3) Atrial fibrillation Code(s): I48.91 - UNSPECIFIED ATRIAL FIBRILLATION (4) GERD (gastroesophageal reflux disease) Code(s): K21.9 - GASTRO-ESOPHAGEAL REFLUX DISEASE WITHOUT ESOPHAGITIS (5) HTN (hypertension) Code(s): I10 - ESSENTIAL (PRIMARY) HYPERTENSION Qualifiers: Hypertension type: essential hypertension Qualified Code(s): I10 - Essential (primary) hypertension (6) Suspected 2019 novel coronavirus infection Code(s): Z20.828 - CONTACT W AND EXPOSURE TO [facility] COMMUNICABLE DISEASES
[2019-10-06] MEDS ORDERED: MIDAZOLAM IN 0.9 % SOD.CHLORID 1 MG/1 ML PLAST..BAG ONE (11:03)
[2019-10-06] MEDS: FLUDROCORTISONE ACETATE 0.1 MG TABLET (FP) PO SCH (11:23)
[2019-10-06] MEDS: PANTOPRAZOLE SODIUM 40 MG VIAL IVPUSH SCH (11:23)
[2019-10-06] MEDS ORDERED: LORazepam 2 MG/ML SDV VIAL IVPUSH PRN (11:28)
[2019-10-06] MEDS ORDERED: morphine SULFATE 4 MG/ML VIAL IVPUSH PRN (11:34)
--- NOTE | 2019-10-06 11:53 | PN ---
Physical Exam: SUBJECTIVE: Patient seen and examined at bedside. pt is intubated and sedated OBJECTIVE: Vital Signs Period Temp Pulse Resp BP Sys/Amador Pulse Ox Last 24 Hr 97.3 F-100.1 F 73-97 14-30 89-125/53-70 90-99 GENERAL: The patient is intubated and sedated HEAD: Normal with no signs of trauma. EYES: PERRL LUNGS: vent sounds equal b/l, decreased at bases, + accessory muscle use. HEART: Regular rate and rhythm, S1, S2 ABDOMEN: Soft, nontender, nondistended, normoactive bowel sounds, no guarding EXTREMITIES: 2+ pulses, warm, well-perfused, no edema. SKIN: Warm, dry, normal turgor, no rashes or lesions noted Laboratory Last Values WBC 22.9 K/mm3 (4.0-10.0) H 10/06/19 05:40 RBC 3.07 M/mm3 (4.00-5.60) L 10/06/19 05:40 Hgb 9.0 GM/dL (11.7-16.9) L 10/06/19 05:40 Hct 28.4 % (35.4-49) L D 10/06/19 05:40 MCV 92.4 fl (80-96) 10/06/19 05:40 MCH 29.4 pg (25.7-33.7) 10/06/19 05:40 MCHC 31.9 g/dl (32.0-35.9) L 10/06/19 05:40 RDW 17.3 % (11.9-15.9) H 10/06/19 05:40 Plt Count 167 K/MM3 (134-434) D 10/06/19 05:40 MPV 8.1 fl (7.5-11.1) 10/06/19 05:40 Absolute Neuts (auto) 21.4 K/mm3 (1.5-8.0) H 10/06/19 05:40 Neutrophils % 93.6 % (42.8-82.8) H 10/06/19 05:40 Neutrophils % (Manual) 87.4 % (42.8-82.8) H 10/06/19 05:40 Band Neutrophils % 1.0 % 10/06/19 05:40 Lymphocytes % 4.1 % (8-40) L D 10/06/19 05:40 Lymphocytes % (Manual) 9.7 % (8-40) D 10/06/19 05:40 Monocytes % 2.2 % (3.8-10.2) L 10/06/19 05:40 Monocytes % (Manual) 2 % (3.8-10.2) L 10/06/19 05:40 Eosinophils % 0.0 % (0-4.5) 10/06/19 05:40 Eosinophils % (Manual) 0.0 % (0-4.5) 10/06/19 05:40 Basophils % 0.1 % (0-2.0) 10/06/19 05:40 Basophils % (Manual) 0.0 % (0-2.0) 10/06/19 05:40 Myelocytes % (Man) 0 % (0-2) D 10/06/19 05:40 Promyelocytes % (Man) 0 % (0-2) 10/06/19 05:40 Blast Cells % (Manual) 0 % (0-0) 10/06/19 05:40 Nucleated RBC % 0 % (0-0) 10/06/19 05:40 Metamyelocytes 0 % (0-2) 10/06/19 05:40 Hypochromia 0 10/06/19 05:40 Platelet Estimate Normal 10/06/19 05:40 Polychromasia 0 10/06/19 05:40 Poikilocytosis 0 10/06/19 05:40 Basophilic Stippling 1+ 10/03/19 16:20 Anisocytosis 0 10/06/19 05:40 Microcytosis 0 10/06/19 05:40 Macrocytosis 0 10/06/19 05:40 Ovalocytes 1+ 10/03/19 16:20 Fragmented RBCs 1+ 09/25/19 06:14 ESR 65 mm/hr (0-20) H 10/06/19 05:40 PT with INR 23.40 SEC (9.7-13.0) H 09/23/19 18:40 INR 1.97 (0.83-1.09) H 09/23/19 18:40 D-Dimer 494 ng/ml (0-500) 10/06/19 05:40 Anticoagulation Therapy No Result Required. 10/06/19 08:20 Puncture Site Right radial 10/06/19 08:20 Patient Temperature No Result Required. 10/06/19 08:20 ABG pH 7.327 (7.350-7.450) L 10/06/19 08:20 ABG pCO2 42.40 mmHg (35-45) 10/06/19 08:20 ABG pO2 68.4 mmHg (80-100) L 10/06/19 08:20 ABG HCO3 21.7 mmol/L (22-27) L 10/06/19 08:20 ABG O2 Sat (Measured) 92.4 mmHg (95-98) L 10/06/19 08:20 ABG O2 Content No Result Required. 10/06/19 08:20 ABG Base Excess -4.1 mmol/L (-2-2) L 10/06/19 08:20 Polo Test Positive 10/06/19 08:20 Patient On Oxygen Yes 10/06/19 08:20 O2 Delivery Device V 10/06/19 08:20 Oxygen Flow Rate 100 10/06/19 08:20 Vent Mode Ac 10/06/19 08:20 Vent Rate 14 10/06/19 08:20 Mechanical Rate V 10/06/19 08:20 PEEP 10.0 cmH2O 10/06/19 08:20 Pressure Support Vent 400 10/06/19 08:20 Sodium 142 mmol/L (136-145) 10/06/19 05:40 Potassium 4.0 mmol/L (3.5-5.1) 10/06/19 05:40 Chloride 108 mmol/L (98-107) H 10/06/19 05:40 Carbon Dioxide 26 mmol/L (21-32) 10/06/19 05:40 Anion Gap 7 MMOL/L (8-16) L 10/06/19 05:40 BUN 31.9 mg/dL (7-18) H 10/06/19 05:40 Creatinine 1.1 mg/dL (0.55-1.3) 10/06/19 05:40 Est GFR (CKD-EPI)AfAm 74.65 10/06/19 05:40 Est GFR (CKD-EPI)NonAf 64.41 10/06/19 05:40 Random Glucose 115 mg/dL (74-106) H 10/06/19 05:40 Calcium 7.3 mg/dL (8.5-10.1) L 10/06/19 05:40 Phosphorus 4.4 mg/dL (2.5-4.9) 10/06/19 05:40 Magnesium 2.1 mg/dL (1.8-2.4) 10/06/19 05:40 Ferritin 1337.9 ng/ml (8-388) H 10/06/19 05:40 Total Bilirubin 1.4 mg/dL (0.2-1) H 10/06/19 05:40 AST 34 U/L (15-37) 10/06/19 05:40 ALT 70 U/L (13-61) H 10/06/19 05:40 Alkaline Phosphatase 73 U/L (45-117) 10/06/19 05:40 LD Total 548 U/L (87-246) H 10/06/19 05:40 Creatine Kinase 31 U/L (26-308) 09/23/19 23:10 Troponin I 0.11 ng/ml (0.00-0.05) H 10/06/19 05:40 C-Reactive Protein 16.6 MG/DL (0.00-0.3) H 10/06/19 05:40 B-Natriuretic Peptide 4358.8 pg/ml (5-450) H 09/23/19 18:40 Total Protein 5.3 g/dl (6.4-8.2) L 10/06/19 05:40 Albumin 1.9 g/dl (3.4-5.0) L 10/06/19 05:40 Urine Color Yellow 10/06/19 06:00 Urine Appearance Clear 10/06/19 06:00 Urine pH 5.5 (5.0-8.0) 10/06/19 06:00 Ur Specific [place] 1.010 (1.010-1.035) 10/06/19 06:00 Urine Protein Negative (NEGATIVE) 10/06/19 06:00 Urine Glucose (UA) Negative (NEGATIVE) 10/06/19 06:00 Urine Ketones Negative (NEGATIVE) 10/06/19 06:00 Urine Blood 1+ (NEGATIVE) H 10/06/19 06:00 Urine Nitrite Negative (NEGATIVE) 10/06/19 06:00 Urine Bilirubin Negative (NEGATIVE) 10/06/19 06:00 Urine Urobilinogen 0.2 mg/dL (0.2-1.0) 10/06/19 06:00 Ur Leukocyte Esterase Negative (NEGATIVE) 10/06/19 06:00 Urine WBC (Auto) 6 /uL (0-25.8) 10/06/19 06:00 Urine RBC (Auto) 14 /uL (0-23.9) 10/06/19 06:00 Urine Casts (Auto) 8 /uL (0-3.1) 10/06/19 06:00 U Pathogenic Cast Auto Rare granular cast /lpf (NEGATIVE) 10/06/19 06:00 U Epithel Cells (Auto) 23 /uL (0-25.1) 10/06/19 06:00 Urine Bacteria (Auto) 72 /uL (0-1359) 10/06/19 06:00 Vancomycin Pre-Dose 7.6 ug/ml (5-10) 09/27/19 10:50 COVID-19 (MAYA) Not detected (Not Detected) 09/23/19 20:00 SARS-CoV-2 Ab Interp Non-reactive (NONREACTIVE) 09/30/19 16:00 Active Medications Generic Name Dose Route Start Last Admin Trade Name Freq PRN Reason Stop Dose Admin Acetaminophen 650 mg 10/06/19 00:25 Tylenol - PO Q6H PRN FEVER Acetaminophen 1,000 mg 10/06/19 01:04 10/06/19 01:36 Ofirmev Injection - IVPB 10/07/19 01:05 1,000 mg Q6H PRN Administration FEVER Albuterol Sulfate 2 puff 10/06/19 00:25 Ventolin Hfa Inhaler - IH Q4H PRN SHORT OF BREATH/WHEEZING Apixaban 5 mg 10/06/19 10:00 10/06/19 09:19 Eliquis - PO 5 mg BID [facility] Administration Atorvastatin Calcium 40 mg 10/06/19 22:00 Lipitor - PO HS [facility] Chlorhexidine Gluconate 1 applic 10/06/19 22:00 Hibiclens For Decolonization - TP HS [facility] Diltiazem HCl 180 mg 10/06/19 10:00 Cardizem Cd - PO DAILY [facility] Fludrocortisone Acetate 0.2 mg 10/06/19 11:15 10/06/19 11:23 Florinef - PO 0.2 mg DAILY [facility] Administration Hydrocortisone Sodium Succinate 50 mg 10/06/19 15:00 Solu-Cortef - IVPB Q6H-IV [facility] Fentanyl 500 mcg in 100 mls @ 10 mls/hr 10/06/19 00:45 10/06/19 01:10 Sublimaze Ivpb IVPB 100 mcg/hr TITR MAGI 20 mls/hr Administration Protocol 50 MCG/HR Midazolam HCl 100 mg in 100 mls @ 1 mls/hr 10/06/19 00:45 10/06/19 06:36 Midazolam 100mg/100ml-0.9%Nacl IVPB 4 mg/hr TITR MAGI 4 mls/hr Infusion Protocol 1 MG/HR Norepinephrine Bitartrate 16,000 mcg in 500 mls @ 9.375 mls/hr 10/06/19 07:45 10/06/19 07:15 Levophed Bag - Ns IVPB 5 mcg/min TITR MAGI 9.375 mls/hr Administration Protocol 5 MCG/MIN Piperacillin Sod/Tazobactam 50 mls @ 100 mls/hr 10/06/19 08:45 10/06/19 09:00 Sod 3.375 gm/ Dextrose IVPB 100 mls/hr Q8H-IV MAGI Administration Protocol Propofol 1,000,000 mcg in 100 mls @ 1.92 mls/hr 10/06/19 08:45 10/06/19 08:45 Diprivan - IVPB 25 mcg/kg/min TITR MAGI 9.6 mls/hr Administration Protocol 5 MCG/KG/MIN Vasopressin 40 units/ Sodium 100 mls @ 5 mls/hr 10/06/19 09:15 10/06/19 09:20 Chloride IVPB 6 units/hr ASDIR MAGI 15 mls/hr Administration Protocol 2 UNITS/HR Metoprolol Succinate 100 mg 10/06/19 10:00 Toprol Xl - PO BID [facility] Mirtazapine 15 mg 10/06/19 22:00 Remeron - PO HS [facility] Morphine Sulfate 4 mg 10/06/19 11:34 Morphine Sulfate IVPUSH Q4H PRN PAIN LEVEL 4 - 6 Mupirocin 1 applic 10/05/19 23:15 10/06/19 09:24 Bactroban Ointment (For Decolonization) - NS 10/10/19 23:14 1 applic BID [facility] Administration Pantoprazole Sodium 40 mg 10/06/19 11:15 10/06/19 11:23 Protonix Iv IVPUSH 40 mg DAILY [facility] Administration Vancomycin HCl 1,000 mg 10/06/19 10:00 10/06/19 09:00 Vancomycin (Pre-Docked) IVPB 10/07/19 09:59 1,000 mg DAILY [facility] Administration Protocol ASSESSMENT/PLAN: 78 yo M PMH Afib (on Eliquis), angina, CHF, HTN, HLD, GI Bleed, suspected COVID (although negative COVID test and Ab), and depression admitted to hospital for acute hypoxic respiratory failure. rapid response called for continued hypoxia despite HFOT and NRB. transferred to ICU for acute hypoxic respiratory failure possibly 2/2 to COVID pneumonitis. Will continue GOC and family discussions with Dr. Cruz and the pt family. As per Dr. Cordova, the son is flying to [facility] to visit [facility]. Neuro/psych Depression Sedated on midazolam and fentanyl. will add morphine with hopes to improve vent synchrony - assess mental status - hold remeron Cardiac Afib, CHF, HTN, HLD -on levo, vaso. maintain MAP >65 - hold diltiazem, furosemide, metoprolol until pressures stabilize - c/w eliquis, lipitor - Troponin 0.09--> 0.11. trend to peak - transfuse if Hb <8, due to cardiac history Pulmonary Possible COVID pneumonitis H/o home oxygen use - vent settings: 14/450/100%/10 - c/w solu cortef , fludrocortisone -CXR reviewed. ABG reviewed GI h/o GI bleed - no acute issues - c/w protonix Renal No acute issues -Monitor I/O's, Cr and electrolytes ID Possible COVID pneumonitis Leukocytosis - c/w IV tylenol PRN for fevers - trend inflammatory markers. Currently increasing trend. - f/u cultures. will send viral panel rpt covid pending. will send legionella - c/w vanc & zosyn - ID consulted. Pending recommendations. - COVID test negative on 09/22, SARS COV-2 negative 09/29 FEN - No standing fluids - Maintain and replete electrolytes - NPO LTD -Sherice 10/04 - RIJ 10/05 Ppx -DVT: SCD -GI ppx: protonix Dispo: We will continue to follow the patient. Thank you for this consultative opportunity. ATTENDING PHYSICIAN STATEMENT I saw and evaluated the patient. I reviewed the resident's note and discussed the case with the resident. I agree with the resident's findings and plan as documented. SUBJECTIVE: OBJECTIVE: ASSESSMENT AND PLAN:
--- NOTE | 2019-10-06 13:52 | PN ---
Teaching Attending Note Name of Resident: Dale Fernandez ATTENDING PHYSICIAN STATEMENT I saw and evaluated the patient. I reviewed the resident's note and discussed the case with the resident. I agree with the resident's findings and plan as documented. SUBJECTIVE: Patient seen and examined in the ICU. Events noted. Clinical decompensation requiring intubation and mechanical ventilation. NE for hemodynamic support. CXR: ARDS pattern / PPlat 26 Intake & Output 10/03/19 10/04/19 10/05/19 10/06/19 23:59 23:59 23:59 23:59 Intake Total 120 240 320 140 Output Total 575 750 850 120 Balance -455 -510 -530 20 Weight 136 lb 2 oz 141 lb 1.533 oz Last Vital Signs Temp Pulse Resp BP Pulse Ox 98.9 F 84 21 H 89/53 L 90 L 10/06/19 06:00 10/06/19 09:20 10/06/19 10:00 10/06/19 09:20 10/06/19 06:00 Active Medications Acetaminophen (Tylenol -) 650 mg PO Q6H PRN PRN Reason: FEVER Acetaminophen (Ofirmev Injection -) 1,000 mg IVPB Q6H PRN PRN Reason: FEVER Stop: 10/07/19 01:05 Last Admin: 10/06/19 01:36 Dose: 1,000 mg Documented by: Albuterol Sulfate (Ventolin Hfa Inhaler -) 2 puff IH Q4H PRN PRN Reason: SHORT OF BREATH/WHEEZING Apixaban (Eliquis -) 5 mg PO BID [facility] Last Admin: 10/06/19 09:19 Dose: 5 mg Documented by: Atorvastatin Calcium (Lipitor -) 40 mg PO HS [facility] Chlorhexidine Gluconate (Hibiclens For Decolonization -) 1 applic TP HS [facility] Diltiazem HCl (Cardizem Cd -) 180 mg PO DAILY [facility] Fludrocortisone Acetate (Florinef -) 0.2 mg PO DAILY [facility] Last Admin: 10/06/19 11:23 Dose: 0.2 mg Documented by: Hydrocortisone Sodium Succinate (Solu-Cortef -) 50 mg IVPB Q6H-IV [facility] Fentanyl (Sublimaze Ivpb) 500 mcg in 100 mls @ 10 mls/hr IVPB TITR [facility]; Protocol Last Admin: 10/06/19 01:10 Dose: 100 mcg/hr, 20 mls/hr Documented by: Midazolam HCl (Midazolam 100mg/100ml-0.9%Nacl) 100 mg in 100 mls @ 1 mls/hr IVPB TITR [facility]; Protocol Last Infusion: 10/06/19 06:36 Dose: 4 mg/hr, 4 mls/hr Documented by: Norepinephrine Bitartrate (Levophed Bag - Ns) 16,000 mcg in 500 mls @ 9.375 mls/hr IVPB TITR [facility]; Protocol Last Admin: 10/06/19 07:15 Dose: 5 mcg/min, 9.375 mls/hr Documented by: Piperacillin Sod/Tazobactam (Sod 3.375 gm/ Dextrose) 50 mls @ 100 mls/hr IVPB Q8H-IV [facility]; Protocol Last Admin: 10/06/19 09:00 Dose: 100 mls/hr Documented by: Propofol (Diprivan -) 1,000,000 mcg in 100 mls @ 1.92 mls/hr IVPB TITR [facility]; Protocol Last Admin: 10/06/19 08:45 Dose: 25 mcg/kg/min, 9.6 mls/hr Documented by: Vasopressin 40 units/ Sodium (Chloride) 100 mls @ 5 mls/hr IVPB ASDIR [facility]; Protocol Last Admin: 10/06/19 09:20 Dose: 6 units/hr, 15 mls/hr Documented by: Metoprolol Succinate (Toprol Xl -) 100 mg PO BID [facility] Mirtazapine (Remeron -) 15 mg PO HS [facility] Morphine Sulfate (Morphine Sulfate) 4 mg IVPUSH Q4H PRN PRN Reason: PAIN LEVEL 4 - 6 Mupirocin (Bactroban Ointment (For Decolonization) -) 1 applic NS BID [facility] Stop: 10/10/19 23:14 Last Admin: 10/06/19 09:24 Dose: 1 applic Documented by: Pantoprazole Sodium (Protonix Iv) 40 mg IVPUSH DAILY [facility] Last Admin: 10/06/19 11:23 Dose: 40 mg Documented by: Vancomycin HCl (Vancomycin (Pre-Docked)) 1,000 mg IVPB DAILY [facility]; Protocol Stop: 10/07/19 09:59 Last Admin: 10/06/19 09:00 Dose: 1,000 mg Documented by: Constitutional: Yes: Intubated and sedated Eyes: Yes: (-) Pallor HENT: Yes: WNL Neck: Yes: WNL Cardiovascular: Yes: Pulse Irregular, S1, S2 Respiratory: Yes: Vented, bilateral Rales/rhonchi Gastrointestinal: Yes: Normal Bowel Sounds, Soft Extremities: Yes: WNL Edema: No Labs: Laboratory Results - last 24 hr 10/05/19 10/06/19 10/06/19 22:49 01:20 01:20 WBC RBC Hgb Hct MCV MCH MCHC RDW Plt Count MPV Absolute Neuts (auto) Neutrophils % Neutrophils % (Manual) Band Neutrophils % Lymphocytes % Lymphocytes % (Manual) Monocytes % Monocytes % (Manual) Eosinophils % Eosinophils % (Manual) Basophils % Basophils % (Manual) Myelocytes % (Man) Promyelocytes % (Man) Blast Cells % (Manual) Nucleated RBC % Metamyelocytes Hypochromia Platelet Estimate Polychromasia Poikilocytosis Anisocytosis Microcytosis Macrocytosis ESR D-Dimer Anticoagulation Therapy No Result Required. No Result Required. Puncture Site Right radial Right radial Patient Temperature No Result Required. No Result Required. ABG pH 7.477 H 7.424 ABG pCO2 30.00 L 34.60 L ABG pO2 47.5 L 109.2 H ABG HCO3 21.7 L 22.1 ABG O2 Sat (Measured) 86.8 L 98.1 H ABG O2 Content No Result Required. No Result Required. ABG Base Excess -1.0 -1.8 Polo Test Positive Positive Patient On Oxygen Yes Yes O2 Delivery Device Nrb mask Vent Oxygen Flow Rate No Result Required. 100% Vent Mode Hfnc A/c Vent Rate No Result Required. 14 Mechanical Rate No Result Required. Yes PEEP No Result Required. 10.0 Pressure Support Vent No Result Required. 400 Sodium Potassium Chloride Carbon Dioxide Anion Gap BUN Creatinine Est GFR (CKD-EPI)AfAm Est GFR (CKD-EPI)NonAf Random Glucose Calcium Phosphorus Magnesium Ferritin Total Bilirubin AST ALT Alkaline Phosphatase LD Total Troponin I 0.09 H C-Reactive Protein Total Protein Albumin Urine Color Urine Appearance Urine pH Ur Specific [place] Urine Protein Urine Glucose (UA) Urine Ketones Urine Blood Urine Nitrite Urine Bilirubin Urine Urobilinogen Ur Leukocyte Esterase Urine WBC (Auto) Urine RBC (Auto) Urine Casts (Auto) U Pathogenic Cast Auto U Epithel Cells (Auto) Urine Bacteria (Auto) 10/06/19 10/06/19 10/06/19 05:40 05:40 05:40 WBC 22.9 H RBC 3.07 L Hgb 9.0 L Hct 28.4 L D MCV 92.4 MCH 29.4 MCHC 31.9 L RDW 17.3 H Plt Count 167 D MPV 8.1 Absolute Neuts (auto) 21.4 H Neutrophils % 93.6 H Neutrophils % (Manual) 87.4 H Band Neutrophils % 1.0 Lymphocytes % 4.1 L D Lymphocytes % (Manual) 9.7 D Monocytes % 2.2 L Monocytes % (Manual) 2 L Eosinophils % 0.0 Eosinophils % (Manual) 0.0 Basophils % 0.1 Basophils % (Manual) 0.0 Myelocytes % (Man) 0 D Promyelocytes % (Man) 0 Blast Cells % (Manual) 0 Nucleated RBC % 0 Metamyelocytes 0 Hypochromia 0 Platelet Estimate Normal Polychromasia 0 Poikilocytosis 0 Anisocytosis 0 Microcytosis 0 Macrocytosis 0 ESR D-Dimer Anticoagulation Therapy Puncture Site Patient Temperature ABG pH ABG pCO2 ABG pO2 ABG HCO3 ABG O2 Sat (Measured) ABG O2 Content ABG Base Excess Polo Test Patient On Oxygen O2 Delivery Device Oxygen Flow Rate Vent Mode Vent Rate Mechanical Rate PEEP Pressure Support Vent Sodium 142 Potassium 4.0 Chloride 108 H Carbon Dioxide 26 Anion Gap 7 L BUN 31.9 H Creatinine 1.1 Est GFR (CKD-EPI)AfAm 74.65 Est GFR (CKD-EPI)NonAf 64.41 Random Glucose 115 H Calcium 7.3 L Phosphorus 4.4 Magnesium 2.1 Ferritin 1337.9 H Total Bilirubin 1.4 H AST 34 ALT 70 H Alkaline Phosphatase 73 LD Total 548 H Troponin I C-Reactive Protein 16.6 H Total Protein 5.3 L Albumin 1.9 L Urine Color Urine Appearance Urine pH Ur Specific [place] Urine Protein Urine Glucose (UA) Urine Ketones Urine Blood Urine Nitrite Urine Bilirubin Urine Urobilinogen Ur Leukocyte Esterase Urine WBC (Auto) Urine RBC (Auto) Urine Casts (Auto) U Pathogenic Cast Auto U Epithel Cells (Auto) Urine Bacteria (Auto) 10/06/19 10/06/19 10/06/19 05:40 05:40 05:40 WBC RBC Hgb Hct MCV MCH MCHC RDW Plt Count MPV Absolute Neuts (auto) Neutrophils % Neutrophils % (Manual) Band Neutrophils % Lymphocytes % Lymphocytes % (Manual) Monocytes % Monocytes % (Manual) Eosinophils % Eosinophils % (Manual) Basophils % Basophils % (Manual) Myelocytes % (Man) Promyelocytes % (Man) Blast Cells % (Manual) Nucleated RBC % Metamyelocytes Hypochromia Platelet Estimate Polychromasia Poikilocytosis Anisocytosis Microcytosis Macrocytosis ESR 65 H D-Dimer 494 Anticoagulation Therapy Puncture Site Patient Temperature ABG pH ABG pCO2 ABG pO2 ABG HCO3 ABG O2 Sat (Measured) ABG O2 Content ABG Base Excess Polo Test Patient On Oxygen O2 Delivery Device Oxygen Flow Rate Vent Mode Vent Rate Mechanical Rate PEEP Pressure Support Vent Sodium Potassium Chloride Carbon Dioxide Anion Gap BUN Creatinine Est GFR (CKD-EPI)AfAm Est GFR (CKD-EPI)NonAf Random Glucose Calcium Phosphorus Magnesium Ferritin Total Bilirubin AST ALT Alkaline Phosphatase LD Total Troponin I 0.11 H C-Reactive Protein Total Protein Albumin Urine Color Urine Appearance Urine pH Ur Specific [place] Urine Protein Urine Glucose (UA) Urine Ketones Urine Blood Urine Nitrite Urine Bilirubin Urine Urobilinogen Ur Leukocyte Esterase Urine WBC (Auto) Urine RBC (Auto) Urine Casts (Auto) U Pathogenic Cast Auto U Epithel Cells (Auto) Urine Bacteria (Auto) 10/06/19 10/06/19 06:00 08:20 WBC RBC Hgb Hct MCV MCH MCHC RDW Plt Count MPV Absolute Neuts (auto) Neutrophils % Neutrophils % (Manual) Band Neutrophils % Lymphocytes % Lymphocytes % (Manual) Monocytes % Monocytes % (Manual) Eosinophils % Eosinophils % (Manual) Basophils % Basophils % (Manual) Myelocytes % (Man) Promyelocytes % (Man) Blast Cells % (Manual) Nucleated RBC % Metamyelocytes Hypochromia Platelet Estimate Polychromasia Poikilocytosis Anisocytosis Microcytosis Macrocytosis ESR D-Dimer Anticoagulation Therapy No Result Required. Puncture Site Right radial Patient Temperature No Result Required. ABG pH 7.327 L ABG pCO2 42.40 ABG pO2 68.4 L ABG HCO3 21.7 L ABG O2 Sat (Measured) 92.4 L ABG O2 Content No Result Required. ABG Base Excess -4.1 L Polo Test Positive Patient On Oxygen Yes O2 Delivery Device V Oxygen Flow Rate 100 Vent Mode Ac Vent Rate 14 Mechanical Rate V PEEP 10.0 Pressure Support Vent 400 Sodium Potassium Chloride Carbon Dioxide Anion Gap BUN Creatinine Est GFR (CKD-EPI)AfAm Est GFR (CKD-EPI)NonAf Random Glucose Calcium Phosphorus Magnesium Ferritin Total Bilirubin AST ALT Alkaline Phosphatase LD Total Troponin I C-Reactive Protein Total Protein Albumin Urine Color Yellow Urine Appearance Clear Urine pH 5.5 Ur Specific [place] 1.010 Urine Protein Negative Urine Glucose (UA) Negative Urine Ketones Negative Urine Blood 1+ H Urine Nitrite Negative Urine Bilirubin Negative Urine Urobilinogen 0.2 Ur Leukocyte Esterase Negative Urine WBC (Auto) 6 Urine RBC (Auto) 14 Urine Casts (Auto) 8 U Pathogenic Cast Auto Rare granular cast U Epithel Cells (Auto) 23 Urine Bacteria (Auto) 72 Assessment/Plan Acute Hypoxic Respiratory Failure due to ARDS : Etiology to be determined Clinically and Radiographically suspected COVID19 Pneumonitis but PCR negative/Ab negative LV Diastolic Dysfunction Atrial Fibrillation HTN Hyperlipidemia - AC Mode of vent : LLTV strategy - Follow PPlat and ABG - Empiric ABX per ID - Corcoran-culture - Continue AC - Strict I & O - Hold Lasix for now - Requires ICU monitoring Family discussions for GOC as gis overall outcome for meaningful survival is poor : Recommend more comfort care measures Dr Gonzalez Critical care time spent in reviewing chart, evaluating patient and formulating plan - 36 minutes.
--- NOTE | 2019-10-06 13:55 | PN ---
Progress Note (short form) - Note Progress Note: Palliative care f/up Events of the last 24 hours noted s/p cardioversion yesterday developed ac respiratory decompensation last night now intubated on pressors wbc 22 k 78yo male with h/o HTN, hyperlipidemia, atrial fibrillation, LV diastolic dysfunction, CAD s/p CABG, angina, s/p bioprosthetic AVR with resection of LA appendage, hx of GI bleed with multiple recent admissions ( 08/31- 09/12, 09/19-09/21, 09/22- current) for hypoxia and suspected COVID19 ( tested negative multiple times) , o2 dependent. + depression/ anxiety, worsening debility currently in ICU I spoke to pt's son Shreyas who is on his way to [place] from [place] He is aware of his dad's guarded prognosis given underlying comorbidities.We will touch base again tomorrow morning after he has visited his dad. Family would like to observe for any improvement over next couple of days but if improvement does not appear probable they would be not want to prolong his suffering. [facility] for allowing me to participate in the care of this patient. Please call with questions. Obie Cruz MD [phone] Problem List - Problems (1) Acute on chronic diastolic (congestive) heart failure Code(s): I50.33 - ACUTE ON CHRONIC DIASTOLIC (CONGESTIVE) HEART FAILURE (2) Acute respiratory failure with hypoxia Code(s): J96.01 - ACUTE RESPIRATORY FAILURE WITH HYPOXIA (3) Atrial flutter Code(s): I48.92 - UNSPECIFIED ATRIAL FLUTTER Qualifiers: Qualified Code(s): I48.92 - Unspecified atrial flutter (4) Depression Code(s): F32.9 - MAJOR DEPRESSIVE DISORDER, SINGLE EPISODE, UNSPECIFIED Qualifiers: Qualified Code(s): F32.89 - Other specified depressive episodes (5) Failure to thrive in adult Code(s): R62.7 - ADULT FAILURE TO THRIVE (6) S/P AVR (aortic valve replacement) Code(s): Z95.2 - PRESENCE OF PROSTHETIC HEART VALVE (7) S/P left atrial appendage ligation Code(s): Z98.890 - OTHER SPECIFIED POSTPROCEDURAL STATES (8) Suspected COVID-19 virus infection Code(s): Z20.828 - CONTACT W AND EXPOSURE TO [facility] VIRAL COMMUNICABLE DISEASES
[2019-10-06] MEDS: HYDROCORTISONE SOD SUCCINATE 100 MG/2 ML VIAL IVPB SCH ×2 (14:16→21:29)
[2019-10-06] MEDS: ATORVASTATIN CA 40 MG TABLET (FP) PO SCH (21:27)
[2019-10-06] MEDS: MIRTAZAPINE 15 MG TABLET (FP) PO SCH (21:27)
[2019-10-06] MEDS: CHLORHEXIDINE GLUCONATE 4% CLEANSER FOR DECOLONIZATION TP SCH (21:27)
[2019-10-07] MEDS ORDERED: DEXTROSE 5%-WATER - 50 ML IVPB ONE ×3 (02:35→16:34)
[2019-10-07] MEDS ORDERED: PIPERACILLIN/TAZOBACTAM 3.375 GM VIAL IVPB ONE ×3 (02:35→16:34)
[2019-10-07] MEDS: HYDROCORTISONE SOD SUCCINATE 100 MG/2 ML VIAL IVPB SCH ×4 (02:37→21:14)
[2019-10-07] MEDS: PIPERACILLIN/TAZOB 3.375 GM 3.375 GM in DEXTROSE 5%-WATER - 50 ML IVPB SCH ×3 (02:37→17:33)
[2019-10-07] MEDS: FENTANYL IVPB 500 MCG/100 ML BAG IVPB SCH (02:38)
[2019-10-07] MEDS: MIDAZOLAM IN 0.9 % SOD.CHLORID 100 MG/100 ML PLAST..BAG IVPB SCH (02:39)
[2019-10-07] MEDS: PROPOFOL 1,000,000 MCG/100 ML VIAL IVPB SCH ×4 (02:39→19:30)
[2019-10-07 06:24] LABS: ARTERIAL BLD GAS O2 SATURATION 99.5 mmHg (95-98); ARTERIAL BLOOD GAS PO2 269.6 mmHg (80-100); ARTERIAL BLOOD GAS pH 7.222 (7.350-7.450)
[2019-10-07 06:29] LABS: ALLENS TEST POSITIVE
[2019-10-07 06:30] LABS: VENT MODE A/C; VENT RATE 14
[2019-10-07 06:49] LABS: BASO % 0.2 % (0-2.0); HEMATOCRIT 27.3 % (35.4-49); HEMOGLOBIN 8.5 GM/dL (11.7-16.9); LYMPH % 2.3 % (8-40); MCHC 31.2 g/dl (32.0-35.9); MONO % 1.5 % (3.8-10.2); PLATELET COUNT 170 K/MM3 (134-434); RBC 2.94 M/mm3 (4.00-5.60); RDW 16.9 % (11.9-15.9)
[2019-10-07 07:18] LABS: ALBUMIN 1.9 g/dl (3.4-5.0); BILIRUBIN,TOTAL 1.1 mg/dL (0.2-1); BLOOD UREA NITROGEN 39.3 mg/dL (7-18); CALCIUM 7.2 mg/dL (8.5-10.1); CREATININE 1.3 mg/dL (0.55-1.3); MAGNESIUM 2.2 mg/dL (1.8-2.4); PHOSPHOROUS 5.6 mg/dL (2.5-4.9); POTASSIUM 4.4 mmol/L (3.5-5.1); TOT PROT 5.5 g/dl (6.4-8.2)
[2019-10-07] MEDS: NOREPINEPHRINE NS PREMIX 16,000 MCG/500 ML BAG IVPB SCH (07:48)
[2019-10-07] MEDS ORDERED: FENTANYL IVPB 500 MCG/100 ML BAG IVPB ONE (08:45)
[2019-10-07] MEDS: APIXABAN 5 MG TABLET PO SCH ×2 (09:10→21:15)
[2019-10-07] MEDS: FLUDROCORTISONE ACETATE 0.1 MG TABLET (FP) PO SCH (09:10)
[2019-10-07] MEDS: MUPIROCIN 2% TOPICAL OINTMENT FOR DECOLONIZATION NS SCH ×2 (09:25→21:24)
[2019-10-07] MEDS: PANTOPRAZOLE SODIUM 40 MG VIAL IVPUSH SCH (09:25)
[2019-10-07 09:28] LABS: ANISOCYTOSIS 1+; MACROCYTOSIS 0; PLATELET ESTIMATE NORMAL
--- NOTE | 2019-10-07 09:46 | PN ---
Progress Note, Physician History of Present Illness: Sedated and intubated on pressors via RIJ for acute on chronic hypoxic respiratory failure. Remains in NSR post DCCV. - Current Medication List Current Medications: Active Medications Acetaminophen (Tylenol -) 650 mg PO Q6H PRN PRN Reason: FEVER Albuterol Sulfate (Ventolin Hfa Inhaler -) 2 puff IH Q4H PRN PRN Reason: SHORT OF BREATH/WHEEZING Apixaban (Eliquis -) 5 mg PO BID [facility] Last Admin: 10/07/19 09:10 Dose: 5 mg Documented by: Atorvastatin Calcium (Lipitor -) 40 mg PO HS [facility] Last Admin: 10/06/19 21:27 Dose: 40 mg Documented by: Chlorhexidine Gluconate (Hibiclens For Decolonization -) 1 applic TP [facility] Last Admin: 10/06/19 21:27 Dose: 1 applic Documented by: Diltiazem HCl (Cardizem Cd -) 180 mg PO DAILY [facility] Fludrocortisone Acetate (Florinef -) 0.2 mg PO DAILY [facility] Last Admin: 10/07/19 09:10 Dose: 0.2 mg Documented by: Hydrocortisone Sodium Succinate (Solu-Cortef -) 50 mg IVPB Q6H-IV [facility] Last Admin: 10/07/19 08:17 Dose: 50 mg Documented by: Fentanyl (Sublimaze Ivpb) 500 mcg in 100 mls @ 10 mls/hr IVPB TITR [facility]; Protocol Last Admin: 10/07/19 02:38 Dose: 100 mcg/hr, 20 mls/hr Documented by: Midazolam HCl (Midazolam 100mg/100ml-0.9%Nacl) 100 mg in 100 mls @ 1 mls/hr IVPB TITR [facility]; Protocol Last Admin: 10/07/19 02:39 Dose: 10 mg/hr, 10 mls/hr Documented by: Norepinephrine Bitartrate (Levophed Bag - Ns) 16,000 mcg in 500 mls @ 9.375 mls/hr IVPB TITR [facility]; Protocol Last Admin: 10/07/19 07:48 Dose: 20 mcg/min, 37.5 mls/hr Documented by: Piperacillin Sod/Tazobactam (Sod 3.375 gm/ Dextrose) 50 mls @ 100 mls/hr IVPB Q8H-IV [facility]; Protocol Last Admin: 10/07/19 09:25 Dose: 100 mls/hr Documented by: Propofol (Diprivan -) 1,000,000 mcg in 100 mls @ 1.92 mls/hr IVPB TITR [facility]; Protocol Last Admin: 10/07/19 09:07 Dose: 25 mcg/kg/min, 9.6 mls/hr Documented by: Vasopressin 40 units/ Sodium (Chloride) 100 mls @ 5 mls/hr IVPB ASDIR [facility]; Protocol Last Admin: 10/06/19 09:20 Dose: 6 units/hr, 15 mls/hr Documented by: Metoprolol Succinate (Toprol Xl -) 100 mg PO BID [facility] Mirtazapine (Remeron -) 15 mg PO HS [facility] Last Admin: 10/06/19 21:27 Dose: 15 mg Documented by: Morphine Sulfate (Morphine Sulfate) 4 mg IVPUSH Q4H PRN PRN Reason: PAIN LEVEL 4 - 6 Mupirocin (Bactroban Ointment (For Decolonization) -) 1 applic NS BID [facility] Stop: 10/10/19 23:14 Last Admin: 10/07/19 09:25 Dose: 1 applic Documented by: Pantoprazole Sodium (Protonix Iv) 40 mg IVPUSH DAILY [facility] Last Admin: 10/07/19 09:25 Dose: 40 mg Documented by: Vancomycin HCl (Vancomycin (Pre-Docked)) 1,000 mg IVPB DAILY [facility]; Protocol Stop: 10/07/19 09:59 Last Admin: 10/06/19 09:00 Dose: 1,000 mg Documented by: - Objective Vital Signs: Vital Signs Temperature 98.7 F 10/07/19 07:00 Pulse Rate 65 10/07/19 08:00 Respiratory Rate 14 10/07/19 08:00 Blood Pressure 126/55 L 10/07/19 08:00 O2 Sat by Pulse Oximetry (%) 100 10/07/19 08:00 Constitutional: Yes: Other (Sedated and intubated) Cardiovascular: Yes: Regular Rate and Rhythm Respiratory: Yes: Intubated, Mechanically Ventilated Gastrointestinal: Yes: Soft, Hypoactive Bowel Sounds Genitourinary: Yes: Smiley Present Edema: No Labs: CBC, BMP 10/07/19 05:36 10/07/19 05:36 INR, PTT INR 1.97 (0.83-1.09) H 09/23/19 18:40 - ....Imaging Chest X-ray: Report Reviewed (Diffuse airspace disease has improved) EKG: Report Reviewed (Tele: NSR PAC) Problem List - Problems (1) Acute on chronic diastolic (congestive) heart failure Code(s): I50.33 - ACUTE ON CHRONIC DIASTOLIC (CONGESTIVE) HEART FAILURE (2) Acute respiratory failure with hypoxia Code(s): J96.01 - ACUTE RESPIRATORY FAILURE WITH HYPOXIA (3) Aortic valve stenosis Code(s): I35.0 - NONRHEUMATIC AORTIC (VALVE) STENOSIS Qualifiers: Cardiac valve disease etiology: nonrheumatic Qualified Code(s): I35.0 - Nonrheumatic aortic (valve) stenosis (4) Atrial flutter Code(s): I48.92 - UNSPECIFIED ATRIAL FLUTTER Qualifiers: Atrial flutter type: typical Qualified Code(s): I48.3 - Typical atrial flutter (5) CAD (coronary artery disease) Code(s): I25.10 - ATHSCL HEART DISEASE OF [place] CORONARY ARTERY W/O ANG PCTRS Qualifiers: Coronary Disease-Associated Artery/Lesion type: [place] artery [place] vs. transplanted heart: [place] heart Associated angina: without angina Qualified Code(s): I25.10 - Atherosclerotic heart disease of [place] coronary artery without angina pectoris (6) HTN (hypertension) Code(s): I10 - ESSENTIAL (PRIMARY) HYPERTENSION Qualifiers: Hypertension type: essential hypertension Qualified Code(s): I10 - Essential (primary) hypertension (7) Hx of CABG Code(s): Z95.1 - PRESENCE OF AORTOCORONARY BYPASS GRAFT (8) Hypercholesterolemia Code(s): E78.00 - PURE HYPERCHOLESTEROLEMIA, UNSPECIFIED (9) S/P AVR (aortic valve replacement) Code(s): Z95.2 - PRESENCE OF PROSTHETIC HEART VALVE (10) S/P left atrial appendage ligation Code(s): Z98.890 - OTHER SPECIFIED POSTPROCEDURAL STATES (11) Suspected COVID-19 virus infection Code(s): Z20.828 - CONTACT W AND EXPOSURE TO [facility] VIRAL COMMUNICABLE DISEASES Assessment/Plan Echo 09/03/2019 Post-op septal motion, normal LVEF 50-55%, mod cLVH, normal RV size and fxn, mild LAE, mild MR, TR, bioAVR, mild AR, restrictive physiology Echocardiography October 12, 2018 revealed mild degree of concentric left ventricular hypertrophy with normal left ventricular systolic function and estimated LVEF between 65-70%, mild left atrial dilatation, normal right ventricular size and systolic function, aortic valve bioprosthesis with no aortic valve insufficiency, moderately dilated ascending aorta, mild thickening of the mitral valve leaflets with mild mitral valve regurgitation, mild to moderate tricuspid valve regurgitation with calculated RVSP of [address]: Small-moderate right and very small left effusion, pulm edema TAA 3.9 cm 1. Recurrent acute hypoxic respiratory failure related to bronchopneumonia with probable sepsis syndrome, coronavirus/COVID 19- residual infiltrates 2. Clinical presentation is consistent with chronic class I-II NYHA classification LV diastolic heart failure, no evidence of acute decompensation- as outlined in the prior notes chest x-ray findings related to patient's recent coronavirus/COVID 19 pneumonitis- elevated BNP level related to patient's chronic heart failure syndrome and persistence of atrial arrhythmia/atrial flutter 3. Paroxysmal atrial flutter with periods rapid ventricular response now in SR post DCCV [id number] score of 5 on DOAC's/Eliquis 4. CAD post CABG with evidence of demand ischemia related to the above-noted clinical presentation angina pectoris 5. Aortic valve stenosis post SAVR/bio-prosthesis- with LA appendage ligation 6. Hypertensive cardiovascular disease 7. Hypercholesterolemia 8. History of altered mental status etiology of which was unclear- prior history of clinical depression 9. History of bacteremia- endocarditis unlikely 10. Anemia PLAN: 1. Wean pressors for MAP>65 mmHg 2. Wean FIO2 and PEEP to maintain saO2, BD, IV steroids with GI protection, empiric abx course 3. Start sotalol 80 bid pending hemodynamic stability 4. Continue Atorvastatin 40 qd, Eliquis 5 bid 5. Holding off diuresis monitoring of volume status, renal function and electrolytes
[2019-10-07 10:44] LABS: WHITE BLOOD COUNT 28.8 K/mm3 (4.0-10.0)
--- NOTE | 2019-10-07 11:27 | PN ---
Progress Note (short form) - Note Progress Note: sedated remains intubated Vital Signs - 24 hr 10/06/19 10/06/19 10/06/19 12:00 12:30 14:00 Temperature 99.6 F Pulse Rate 67 66 Respiratory 14 14 14 Rate Blood Pressure 121/71 136/70 O2 Sat by Pulse 98 97 100 Oximetry (%) 10/06/19 10/06/19 10/06/19 16:00 16:33 19:00 Temperature 99.4 F Pulse Rate 65 64 Respiratory 14 14 19 Rate Blood Pressure 119/61 104/49 L O2 Sat by Pulse 100 98 100 Oximetry (%) 10/06/19 10/06/19 10/06/19 20:10 20:26 23:00 Temperature 99.9 F H Pulse Rate 68 Respiratory 14 14 20 Rate Blood Pressure 131/59 L O2 Sat by Pulse 100 100 100 Oximetry (%) 10/07/19 10/07/19 10/07/19 00:00 02:00 03:00 Temperature 99.5 F Pulse Rate 67 Respiratory 14 14 13 Rate Blood Pressure 135/62 O2 Sat by Pulse 100 100 Oximetry (%) 10/07/19 10/07/19 10/07/19 04:25 07:00 08:00 Temperature 98.7 F Pulse Rate 65 65 Respiratory 14 14 14 Rate Blood Pressure 120/58 L 126/55 L O2 Sat by Pulse 100 100 100 Oximetry (%) 10/07/19 10/07/19 10/07/19 08:35 09:00 10:00 Temperature 98.9 F Pulse Rate 68 Respiratory 14 14 14 Rate Blood Pressure 112/55 L O2 Sat by Pulse 100 100 100 Oximetry (%) Current Medications Generic Name Dose Route Start Last Admin Trade Name Freq PRN Reason Stop Dose Admin Acetaminophen 650 mg 10/06/19 00:25 Tylenol - PO Q6H PRN FEVER Albuterol Sulfate 2 puff 10/06/19 00:25 Ventolin Hfa Inhaler - IH Q4H PRN SHORT OF BREATH/WHEEZING Apixaban 5 mg 10/06/19 10:00 10/07/19 09:10 Eliquis - PO 5 mg BID MAGI Administration Atorvastatin Calcium 40 mg 10/06/19 22:00 10/06/19 21:27 Lipitor - PO 40 mg HS MAGI Administration Chlorhexidine Gluconate 1 applic 10/06/19 22:00 10/06/19 21:27 Hibiclens For Decolonization - TP 1 applic HS MAGI Administration Diltiazem HCl 180 mg 10/06/19 10:00 Cardizem Cd - PO DAILY MAGI Fludrocortisone Acetate 0.2 mg 10/06/19 11:15 10/07/19 09:10 Florinef - PO 0.2 mg DAILY MAGI Administration Hydrocortisone Sodium Succinate 50 mg 10/06/19 15:00 10/07/19 08:17 Solu-Cortef - IVPB 50 mg Q6H-IV MAGI Administration Fentanyl 500 mcg in 100 mls @ 10 mls/hr 10/06/19 00:45 10/07/19 02:38 Sublimaze Ivpb IVPB 100 mcg/hr TITR MAGI 20 mls/hr Administration Protocol 50 MCG/HR Midazolam HCl 100 mg in 100 mls @ 1 mls/hr 10/06/19 00:45 10/07/19 02:39 Midazolam 100mg/100ml-0.9%Nacl IVPB 10 mg/hr TITR MAGI 10 mls/hr Administration Protocol 1 MG/HR Norepinephrine Bitartrate 16,000 mcg in 500 mls @ 9.375 mls/hr 10/06/19 07:45 10/07/19 07:48 Levophed Bag - Ns IVPB 20 mcg/min TITR MAGI 37.5 mls/hr Administration Protocol 5 MCG/MIN Piperacillin Sod/Tazobactam 50 mls @ 100 mls/hr 10/06/19 08:45 10/07/19 09:25 Sod 3.375 gm/ Dextrose IVPB 100 mls/hr Q8H-IV MAGI Administration Protocol Propofol 1,000,000 mcg in 100 mls @ 1.92 mls/hr 10/06/19 08:45 10/07/19 09:07 Diprivan - IVPB 25 mcg/kg/min TITR MAGI 9.6 mls/hr Administration Protocol 5 MCG/KG/MIN Vasopressin 40 units/ Sodium 100 mls @ 5 mls/hr 10/06/19 09:15 10/06/19 09:20 Chloride IVPB 6 units/hr ASDIR MAGI 15 mls/hr Administration Protocol 2 UNITS/HR Metoprolol Succinate 100 mg 10/06/19 10:00 Toprol Xl - PO BID MAGI Mirtazapine 15 mg 10/06/19 22:00 10/06/19 21:27 Remeron - PO 15 mg HS MAGI Administration Morphine Sulfate 4 mg 10/06/19 11:34 Morphine Sulfate IVPUSH Q4H PRN PAIN LEVEL 4 - 6 Mupirocin 1 applic 10/05/19 23:15 10/07/19 09:25 Bactroban Ointment (For Decolonization) - NS 10/10/19 23:14 1 applic BID MAGI Administration Pantoprazole Sodium 40 mg 10/06/19 11:15 10/07/19 09:25 Protonix Iv IVPUSH 40 mg DAILY MAGI Administration S1 S2 Irregular Lungs decreased breath sounds Abd- soft, NT No edema A/P acute respiratory failure Fever, pneumonitis CHF decompensation Aflutter -- COVID negative -- on stress steroids -- ICU management --s/p cardioversion -- rate control -- continue with meds --broad spectrum antibiotics -- prognosis is poor -- on pressor support Problem List - Problems (1) Acute on chronic diastolic (congestive) heart failure Code(s): I50.33 - ACUTE ON CHRONIC DIASTOLIC (CONGESTIVE) HEART FAILURE (2) Acute respiratory failure with hypoxia Code(s): J96.01 - ACUTE RESPIRATORY FAILURE WITH HYPOXIA (3) Atrial fibrillation Code(s): I48.91 - UNSPECIFIED ATRIAL FIBRILLATION (4) GERD (gastroesophageal reflux disease) Code(s): K21.9 - GASTRO-ESOPHAGEAL REFLUX DISEASE WITHOUT ESOPHAGITIS (5) HTN (hypertension) Code(s): I10 - ESSENTIAL (PRIMARY) HYPERTENSION Qualifiers: Hypertension type: essential hypertension Qualified Code(s): I10 - Essential (primary) hypertension (6) Suspected 2019 novel coronavirus infection Code(s): Z20.828 - CONTACT W AND EXPOSURE TO [facility] COMMUNICABLE DISEASES
--- NOTE | 2019-10-07 16:06 | PN ---
Teaching Attending Note Name of Resident: Pily Brown ATTENDING PHYSICIAN STATEMENT I saw and evaluated the patient. I reviewed the resident's note and discussed the case with the resident. I agree with the resident's findings and plan as documented. I saw and evaluated the patient. I reviewed the resident's note and discussed the case with the resident. I agree with the resident's findings and plan as documented. SUBJECTIVE: Patient seen and examined in the ICU. Remains intubated and sedated. AC Mode of vent. PPlat: 24 NE for hemodynamic support. CXR: Improving ARDS pattern Intake & Output 10/04/19 10/05/19 10/06/19 10/07/19 23:59 23:59 23:59 23:59 Intake Total 668 518 3979.2 1557.2 Output Total 750 850 320 700 Balance -510 -530 1290.2 857.2 Weight 136 lb 2 oz 141 lb 1.533 oz 142 lb 6.698 oz Last Vital Signs Temp Pulse Resp BP Pulse Ox 99.2 F 65 18 126/61 100 10/07/19 14:00 10/07/19 14:00 10/07/19 14:00 10/07/19 14:00 10/07/19 14:00 Active Medications Acetaminophen (Tylenol -) 650 mg PO Q6H PRN PRN Reason: FEVER Albuterol Sulfate (Ventolin Hfa Inhaler -) 2 puff IH Q4H PRN PRN Reason: SHORT OF BREATH/WHEEZING Apixaban (Eliquis -) 5 mg PO BID [facility] Last Admin: 10/07/19 09:10 Dose: 5 mg Documented by: Atorvastatin Calcium (Lipitor -) 40 mg PO HS [facility] Last Admin: 10/06/19 21:27 Dose: 40 mg Documented by: Chlorhexidine Gluconate (Hibiclens For Decolonization -) 1 applic TP HS [facility] Last Admin: 10/06/19 21:27 Dose: 1 applic Documented by: Diltiazem HCl (Cardizem Cd -) 180 mg PO DAILY [facility] Fludrocortisone Acetate (Florinef -) 0.2 mg PO DAILY [facility] Last Admin: 10/07/19 09:10 Dose: 0.2 mg Documented by: Hydrocortisone Sodium Succinate (Solu-Cortef -) 50 mg IVPB Q6H-IV [facility] Last Admin: 10/07/19 15:15 Dose: 50 mg Documented by: Fentanyl (Sublimaze Ivpb) 500 mcg in 100 mls @ 10 mls/hr IVPB TITR MAGI; Protocol Last Admin: 10/07/19 02:38 Dose: 100 mcg/hr, 20 mls/hr Documented by: Midazolam HCl (Midazolam 100mg/100ml-0.9%Nacl) 100 mg in 100 mls @ 1 mls/hr IVPB TITR MAGI; Protocol Last Admin: 10/07/19 02:39 Dose: 10 mg/hr, 10 mls/hr Documented by: Norepinephrine Bitartrate (Levophed Bag - Ns) 16,000 mcg in 500 mls @ 9.375 mls/hr IVPB TITR MAGI; Protocol Last Admin: 10/07/19 07:48 Dose: 20 mcg/min, 37.5 mls/hr Documented by: Piperacillin Sod/Tazobactam (Sod 3.375 gm/ Dextrose) 50 mls @ 100 mls/hr IVPB Q8H-IV MAGI; Protocol Last Admin: 10/07/19 09:25 Dose: 100 mls/hr Documented by: Propofol (Diprivan -) 1,000,000 mcg in 100 mls @ 1.92 mls/hr IVPB TITR MAGI; Protocol Last Admin: 10/07/19 09:07 Dose: 25 mcg/kg/min, 9.6 mls/hr Documented by: Vasopressin 40 units/ Sodium (Chloride) 100 mls @ 5 mls/hr IVPB ASDIR MAGI; Protocol Last Admin: 10/06/19 09:20 Dose: 6 units/hr, 15 mls/hr Documented by: Metoprolol Succinate (Toprol Xl -) 100 mg PO BID [facility] Mirtazapine (Remeron -) 15 mg PO HS [facility] Last Admin: 10/06/19 21:27 Dose: 15 mg Documented by: Morphine Sulfate (Morphine Sulfate) 4 mg IVPUSH Q4H PRN PRN Reason: PAIN LEVEL 4 - 6 Mupirocin (Bactroban Ointment (For Decolonization) -) 1 applic NS BID [facility] Stop: 10/10/19 23:14 Last Admin: 10/07/19 09:25 Dose: 1 applic Documented by: Pantoprazole Sodium (Protonix Iv) 40 mg IVPUSH DAILY [facility] Last Admin: 10/07/19 09:25 Dose: 40 mg Documented by: Constitutional: Yes: Intubated and sedated Eyes: Yes: (-) Pallor HENT: Yes: WNL Neck: Yes: WNL Cardiovascular: Yes: Pulse Irregular, S1, S2 Respiratory: Yes: Vented, bilateral Rales/rhonchi Gastrointestinal: Yes: Normal Bowel Sounds, Soft Extremities: Yes: WNL Edema: No Labs: Laboratory Results - last 24 hr 10/06/19 10/06/19 10/07/19 06:00 20:03 01:45 WBC RBC Hgb Hct MCV MCH MCHC RDW Plt Count MPV Absolute Neuts (auto) Total Counted Neutrophils % Neutrophils % (Manual) Band Neutrophils % Lymphocytes % Lymphocytes % (Manual) Monocytes % Monocytes % (Manual) Eosinophils % Eosinophils % (Manual) Basophils % Basophils % (Manual) Myelocytes % (Man) Promyelocytes % (Man) Blast Cells % (Manual) Nucleated RBC % Metamyelocytes Differential Comment Hypersegmented Neuts Plasma Cells Smudge Cells Other Cell Type Hypochromia Toxic Granulation Dohle Bodies Jesse Rods Platelet Estimate Platelet Comment Polychromasia Poikilocytosis Basophilic Stippling Anisocytosis Microcytosis Macrocytosis Spherocytes Siderocytes Sickle Cells Target Cells Tear Drop Cells Ovalocytes Stomatocytes Helmet Cells [place] Bodies Nice Rings Sanborn Cells Acanthocytes (Spur) Rouleaux Fragmented RBCs Schistocytes Anticoagulation Therapy Puncture Site Patient Temperature ABG pH ABG pCO2 ABG pO2 ABG HCO3 ABG O2 Sat (Measured) ABG O2 Content ABG Base Excess Polo Test Patient On Oxygen O2 Delivery Device Oxygen Flow Rate Vent Mode Vent Rate Mechanical Rate PEEP Pressure Support Vent Sodium Potassium Chloride Carbon Dioxide Anion Gap BUN Creatinine Est GFR (CKD-EPI)AfAm Est GFR (CKD-EPI)NonAf Random Glucose Calcium Phosphorus Magnesium Total Bilirubin AST ALT Alkaline Phosphatase Troponin I 0.13 H 0.07 H Total Protein Albumin COVID-19 (MAYA) Not detected 10/07/19 10/07/19 10/07/19 05:36 05:36 05:36 WBC 28.8 H RBC 2.94 L Hgb 8.5 L Hct 27.3 L MCV 93.0 MCH 29.0 MCHC 31.2 L RDW 16.9 H Plt Count 170 MPV 8.0 Absolute Neuts (auto) 27.7 H Total Counted Cancelled Neutrophils % 96.0 H Neutrophils % (Manual) 98.0 H Cancelled Band Neutrophils % 0.0 Cancelled Lymphocytes % 2.3 L D Lymphocytes % (Manual) 1.0 L D Cancelled Monocytes % 1.5 L Monocytes % (Manual) 1 L Cancelled Eosinophils % 0.0 Eosinophils % (Manual) 0.0 Cancelled Basophils % 0.2 Basophils % (Manual) 0.0 Cancelled Myelocytes % (Man) 0 Cancelled Promyelocytes % (Man) 0 Cancelled Blast Cells % (Manual) 0 Cancelled Nucleated RBC % 0 Cancelled Metamyelocytes 0 Cancelled Differential Comment Cancelled Hypersegmented Neuts Cancelled Plasma Cells Cancelled Smudge Cells Cancelled Other Cell Type Cancelled Hypochromia 0 Cancelled Toxic Granulation Cancelled Dohle Bodies Cancelled Jesse Rods Cancelled Platelet Estimate Normal Cancelled Platelet Comment Cancelled Polychromasia 0 Cancelled Poikilocytosis 0 Cancelled Basophilic Stippling 1+ Cancelled Anisocytosis 1+ Cancelled Microcytosis 1+ Cancelled Macrocytosis 0 Cancelled Spherocytes Cancelled Siderocytes Cancelled Sickle Cells Cancelled Target Cells Cancelled Tear Drop Cells Cancelled Ovalocytes Cancelled Stomatocytes Cancelled Helmet Cells Cancelled [place] Bodies Cancelled Nice Rings Cancelled Forrest Cells Cancelled Acanthocytes (Spur) Cancelled Rouleaux Cancelled Fragmented RBCs Cancelled Schistocytes Cancelled Anticoagulation Therapy Puncture Site Patient Temperature ABG pH ABG pCO2 ABG pO2 ABG HCO3 ABG O2 Sat (Measured) ABG O2 Content ABG Base Excess Polo Test Patient On Oxygen O2 Delivery Device Oxygen Flow Rate Vent Mode Vent Rate Mechanical Rate PEEP Pressure Support Vent Sodium 140 Potassium 4.4 Chloride 108 H Carbon Dioxide 25 Anion Gap 7 L BUN 39.3 H Creatinine 1.3 Est GFR (CKD-EPI)AfAm 61.00 Est GFR (CKD-EPI)NonAf 52.63 Random Glucose 186 H Calcium 7.2 L Phosphorus 5.6 H Magnesium 2.2 Total Bilirubin 1.1 H AST 30 ALT 54 Alkaline Phosphatase 70 Troponin I 0.06 H Total Protein 5.5 L Albumin 1.9 L COVID-19 (MAYA) 10/07/19 05:55 WBC RBC Hgb Hct MCV MCH MCHC RDW Plt Count MPV Absolute Neuts (auto) Total Counted Neutrophils % Neutrophils % (Manual) Band Neutrophils % Lymphocytes % Lymphocytes % (Manual) Monocytes % Monocytes % (Manual) Eosinophils % Eosinophils % (Manual) Basophils % Basophils % (Manual) Myelocytes % (Man) Promyelocytes % (Man) Blast Cells % (Manual) Nucleated RBC % Metamyelocytes Differential Comment Hypersegmented Neuts Plasma Cells Smudge Cells Other Cell Type Hypochromia Toxic Granulation Dohle Bodies Jesse Rods Platelet Estimate Platelet Comment Polychromasia Poikilocytosis Basophilic Stippling Anisocytosis Microcytosis Macrocytosis Spherocytes Siderocytes Sickle Cells Target Cells Tear Drop Cells Ovalocytes Stomatocytes Helmet Cells [place] Bodies Nice Rings Sanborn Cells Acanthocytes (Spur) Rouleaux Fragmented RBCs Schistocytes Anticoagulation Therapy No Result Required. Puncture Site Left radial Patient Temperature No Result Required. ABG pH 7.222 L ABG pCO2 60.10 H ABG pO2 269.6 H ABG HCO3 24.2 ABG O2 Sat (Measured) 99.5 H ABG O2 Content No Result Required. ABG Base Excess -4.0 L Polo Test Positive Patient On Oxygen Yes O2 Delivery Device Vent Oxygen Flow Rate 100% Vent Mode A/c Vent Rate 14 Mechanical Rate Yes PEEP 8.0 Pressure Support Vent 450 Sodium Potassium Chloride Carbon Dioxide Anion Gap BUN Creatinine Est GFR (CKD-EPI)AfAm Est GFR (CKD-EPI)NonAf Random Glucose Calcium Phosphorus Magnesium Total Bilirubin AST ALT Alkaline Phosphatase Troponin I Total Protein Albumin COVID-19 (MAYA) Assessment/Plan Acute Hypoxic Respiratory Failure due to ARDS : Etiology to be determined Clinically and Radiographically suspected COVID19 Pneumonitis but PCR negative/Ab negative LV Diastolic Dysfunction Atrial Fibrillation HTN Hyperlipidemia - AC Mode of vent : LLTV strategy - Follow PPlat - Empiric ABX per ID - Follow cultures - Continue AC - Strict I & O - Hold Lasix for now - Requires ICU monitoring Family discussions for GOC as his overall outcome for meaningful survival is po or : Recommend more comfort care measures Dr Gonzalez Critical care time spent in reviewing chart, evaluating patient and formulating plan - 36 minutes.
--- NOTE | 2019-10-07 16:56 | EKG ---
Test Reason : Blood Pressure : / mmHG Vent. Rate : 085 BPM Atrial Rate : 085 BPM P-R Int : 110 ms QRS Dur : 090 ms QT Int : 394 ms P-R-T Axes : 065 002 174 degrees QTc Int : 468 ms SINUS RHYTHM WITH SHORT CT WITH PREMATURE SUPRAVENTRICULAR COMPLEXES LEFT VENTRICULAR HYPERTROPHY WITH REPOLARIZATION ABNORMALITY ABNORMAL ECG WHEN COMPARED WITH ECG OF 05-OCT-2019 12:13, SINUS RHYTHM HAS REPLACED JUNCTIONAL RHYTHM Confirmed by MELLISA MANZANO, SHILPA ([id number]) on 10/07/2019 4:56:36 PM Referred By: Confirmed By:SHILPA PAK MD
--- NOTE | 2019-10-07 17:10 | PN ---
Physical Exam: SUBJECTIVE: Patient seen and examined at bedside. intubated and sedated OBJECTIVE: Vital Signs Period Temp Pulse Resp BP Sys/Amador Pulse Ox Last 24 Hr 98.7 F-99.9 F 64-69 13-20 104-135/49-62 100-100 GENERAL: The patient is intubated and sedated HEAD: Normal with no signs of trauma. LUNGS: vent sounds equal b/l, clear to auscultation bilaterally, no accessory muscle use. HEART: Regular rate and rhythm, S1, S2 ABDOMEN: Soft, nondistended, normoactive bowel sounds, no guarding EXTREMITIES: 2+ pulses, warm, well-perfused, no edema. SKIN: Warm, dry, normal turgor, no rashes or lesions noted Laboratory Last Values WBC 28.8 K/mm3 (4.0-10.0) H 10/07/19 05:36 RBC 2.94 M/mm3 (4.00-5.60) L 10/07/19 05:36 Hgb 8.5 GM/dL (11.7-16.9) L 10/07/19 05:36 Hct 27.3 % (35.4-49) L 10/07/19 05:36 MCV 93.0 fl (80-96) 10/07/19 05:36 MCH 29.0 pg (25.7-33.7) 10/07/19 05:36 MCHC 31.2 g/dl (32.0-35.9) L 10/07/19 05:36 RDW 16.9 % (11.9-15.9) H 10/07/19 05:36 Plt Count 170 K/MM3 (134-434) 10/07/19 05:36 MPV 8.0 fl (7.5-11.1) 10/07/19 05:36 Absolute Neuts (auto) 27.7 K/mm3 (1.5-8.0) H 10/07/19 05:36 Total Counted Cancelled 10/07/19 05:36 Neutrophils % 96.0 % (42.8-82.8) H 10/07/19 05:36 Neutrophils % (Manual) 98.0 % (42.8-82.8) H 10/07/19 05:36 Neutrophils % (Manual) Cancelled 10/07/19 05:36 Band Neutrophils % 0.0 % 10/07/19 05:36 Band Neutrophils % Cancelled 10/07/19 05:36 Lymphocytes % 2.3 % (8-40) L D 10/07/19 05:36 Lymphocytes % (Manual) 1.0 % (8-40) L D 10/07/19 05:36 Lymphocytes % (Manual) Cancelled 10/07/19 05:36 Monocytes % 1.5 % (3.8-10.2) L 10/07/19 05:36 Monocytes % (Manual) 1 % (3.8-10.2) L 10/07/19 05:36 Monocytes % (Manual) Cancelled 10/07/19 05:36 Eosinophils % 0.0 % (0-4.5) 10/07/19 05:36 Eosinophils % (Manual) 0.0 % (0-4.5) 10/07/19 05:36 Eosinophils % (Manual) Cancelled 10/07/19 05:36 Basophils % 0.2 % (0-2.0) 10/07/19 05:36 Basophils % (Manual) 0.0 % (0-2.0) 10/07/19 05:36 Basophils % (Manual) Cancelled 10/07/19 05:36 Myelocytes % (Man) 0 % (0-2) 10/07/19 05:36 Myelocytes % (Man) Cancelled 10/07/19 05:36 Promyelocytes % (Man) 0 % (0-2) 10/07/19 05:36 Promyelocytes % (Man) Cancelled 10/07/19 05:36 Blast Cells % (Manual) 0 % (0-0) 10/07/19 05:36 Blast Cells % (Manual) Cancelled 10/07/19 05:36 Nucleated RBC % 0 % (0-0) 10/07/19 05:36 Nucleated RBC % Cancelled 10/07/19 05:36 Metamyelocytes 0 % (0-2) 10/07/19 05:36 Metamyelocytes Cancelled 10/07/19 05:36 Differential Comment Cancelled 10/07/19 05:36 Hypersegmented Neuts Cancelled 10/07/19 05:36 Plasma Cells Cancelled 10/07/19 05:36 Smudge Cells Cancelled 10/07/19 05:36 Other Cell Type Cancelled 10/07/19 05:36 Hypochromia 0 10/07/19 05:36 Hypochromia Cancelled 10/07/19 05:36 Toxic Granulation Cancelled 10/07/19 05:36 Dohle Bodies Cancelled 10/07/19 05:36 Jesse Rods Cancelled 10/07/19 05:36 Platelet Estimate Cancelled 10/07/19 05:36 Platelet Estimate Normal 10/07/19 05:36 Platelet Comment Cancelled 10/07/19 05:36 Platelet Comment Cancelled 10/07/19 05:36 Polychromasia 0 10/07/19 05:36 Polychromasia Cancelled 10/07/19 05:36 Poikilocytosis 0 10/07/19 05:36 Poikilocytosis Cancelled 10/07/19 05:36 Basophilic Stippling 1+ 10/07/19 05:36 Basophilic Stippling Cancelled 10/07/19 05:36 Anisocytosis 1+ 10/07/19 05:36 Anisocytosis Cancelled 10/07/19 05:36 Microcytosis 1+ 10/07/19 05:36 Microcytosis Cancelled 10/07/19 05:36 Macrocytosis 0 10/07/19 05:36 Macrocytosis Cancelled 10/07/19 05:36 Spherocytes Cancelled 10/07/19 05:36 Siderocytes Cancelled 10/07/19 05:36 Sickle Cells Cancelled 10/07/19 05:36 Target Cells Cancelled 10/07/19 05:36 Tear Drop Cells Cancelled 10/07/19 05:36 Ovalocytes Cancelled 10/07/19 05:36 Stomatocytes Cancelled 10/07/19 05:36 Helmet Cells Cancelled 10/07/19 05:36 [place] Bodies Cancelled 10/07/19 05:36 [place] Rings Cancelled 10/07/19 05:36 [place] Cells Cancelled 10/07/19 05:36 Acanthocytes (Spur) Cancelled 10/07/19 05:36 Rouleaux Cancelled 10/07/19 05:36 Fragmented RBCs Cancelled 10/07/19 05:36 Schistocytes Cancelled 10/07/19 05:36 ESR 65 mm/hr (0-20) H 10/06/19 05:40 PT with INR 23.40 SEC (9.7-13.0) H 09/23/19 18:40 INR 1.97 (0.83-1.09) H 09/23/19 18:40 D-Dimer 494 ng/ml (0-500) 10/06/19 05:40 Anticoagulation Therapy No Result Required. 10/07/19 05:55 Puncture Site Left radial 10/07/19 05:55 Patient Temperature No Result Required. 10/07/19 05:55 ABG pH 7.222 (7.350-7.450) L 10/07/19 05:55 ABG pCO2 60.10 mmHg (35-45) H 10/07/19 05:55 ABG pO2 269.6 mmHg (80-100) H 10/07/19 05:55 ABG HCO3 24.2 mmol/L (22-27) 10/07/19 05:55 ABG O2 Sat (Measured) 99.5 mmHg (95-98) H 10/07/19 05:55 ABG O2 Content No Result Required. 10/07/19 05:55 ABG Base Excess -4.0 mmol/L (-2-2) L 10/07/19 05:55 Polo Test Positive 10/07/19 05:55 Patient On Oxygen Yes 10/07/19 05:55 O2 Delivery Device Vent 10/07/19 05:55 Oxygen Flow Rate 100% 10/07/19 05:55 Vent Mode A/c 10/07/19 05:55 Vent Rate 14 10/07/19 05:55 Mechanical Rate Yes 10/07/19 05:55 PEEP 8.0 cmH2O 10/07/19 05:55 Pressure Support Vent 450 10/07/19 05:55 Sodium 140 mmol/L (136-145) 10/07/19 05:36 Potassium 4.4 mmol/L (3.5-5.1) 10/07/19 05:36 Chloride 108 mmol/L (98-107) H 10/07/19 05:36 Carbon Dioxide 25 mmol/L (21-32) 10/07/19 05:36 Anion Gap 7 MMOL/L (8-16) L 10/07/19 05:36 BUN 39.3 mg/dL (7-18) H 10/07/19 05:36 Creatinine 1.3 mg/dL (0.55-1.3) 10/07/19 05:36 Est GFR (CKD-EPI)AfAm 61.00 10/07/19 05:36 Est GFR (CKD-EPI)NonAf 52.63 10/07/19 05:36 Random Glucose 186 mg/dL (74-106) H 10/07/19 05:36 Calcium 7.2 mg/dL (8.5-10.1) L 10/07/19 05:36 Phosphorus 5.6 mg/dL (2.5-4.9) H 10/07/19 05:36 Magnesium 2.2 mg/dL (1.8-2.4) 10/07/19 05:36 Ferritin 1337.9 ng/ml (8-388) H 10/06/19 05:40 Total Bilirubin 1.1 mg/dL (0.2-1) H 10/07/19 05:36 AST 30 U/L (15-37) 10/07/19 05:36 ALT 54 U/L (13-61) 10/07/19 05:36 Alkaline Phosphatase 70 U/L (45-117) 10/07/19 05:36 LD Total 548 U/L (87-246) H 10/06/19 05:40 Creatine Kinase 31 U/L (26-308) 09/23/19 23:10 Troponin I 0.06 ng/ml (0.00-0.05) H 10/07/19 05:36 C-Reactive Protein 16.6 MG/DL (0.00-0.3) H 10/06/19 05:40 B-Natriuretic Peptide 4358.8 pg/ml (5-450) H 09/23/19 18:40 Total Protein 5.5 g/dl (6.4-8.2) L 10/07/19 05:36 Albumin 1.9 g/dl (3.4-5.0) L 10/07/19 05:36 Urine Color Yellow 10/06/19 06:00 Urine Appearance Clear 10/06/19 06:00 Urine pH 5.5 (5.0-8.0) 10/06/19 06:00 Ur Specific [place] 1.010 (1.010-1.035) 10/06/19 06:00 Urine Protein Negative (NEGATIVE) 10/06/19 06:00 Urine Glucose (UA) Negative (NEGATIVE) 10/06/19 06:00 Urine Ketones Negative (NEGATIVE) 10/06/19 06:00 Urine Blood 1+ (NEGATIVE) H 10/06/19 06:00 Urine Nitrite Negative (NEGATIVE) 10/06/19 06:00 Urine Bilirubin Negative (NEGATIVE) 10/06/19 06:00 Urine Urobilinogen 0.2 mg/dL (0.2-1.0) 10/06/19 06:00 Ur Leukocyte Esterase Negative (NEGATIVE) 10/06/19 06:00 Urine WBC (Auto) 6 /uL (0-25.8) 10/06/19 06:00 Urine RBC (Auto) 14 /uL (0-23.9) 10/06/19 06:00 Urine Casts (Auto) 8 /uL (0-3.1) 10/06/19 06:00 U Pathogenic Cast Auto Rare granular cast /lpf (NEGATIVE) 10/06/19 06:00 U Epithel Cells (Auto) 23 /uL (0-25.1) 10/06/19 06:00 Urine Bacteria (Auto) 72 /uL (0-1359) 10/06/19 06:00 Vancomycin Pre-Dose 7.6 ug/ml (5-10) 09/27/19 10:50 COVID-19 (MAYA) Not detected (Not Detected) 10/06/19 06:00 SARS-CoV-2 Ab Interp Non-reactive (NONREACTIVE) 10/06/19 05:40 Active Medications Generic Name Dose Route Start Last Admin Trade Name Freq PRN Reason Stop Dose Admin Acetaminophen 650 mg 10/06/19 00:25 Tylenol - PO Q6H PRN FEVER Albuterol Sulfate 2 puff 10/06/19 00:25 Ventolin Hfa Inhaler - IH Q4H PRN SHORT OF BREATH/WHEEZING Apixaban 5 mg 10/06/19 10:00 10/07/19 09:10 Eliquis - PO 5 mg BID MAGI Administration Atorvastatin Calcium 40 mg 10/06/19 22:00 10/06/19 21:27 Lipitor - PO 40 mg HS MAGI Administration Chlorhexidine Gluconate 1 applic 10/06/19 22:00 10/06/19 21:27 Hibiclens For Decolonization - TP 1 applic HS MAGI Administration Diltiazem HCl 180 mg 10/06/19 10:00 Cardizem Cd - PO DAILY MAGI Fludrocortisone Acetate 0.2 mg 10/06/19 11:15 10/07/19 09:10 Florinef - PO 0.2 mg DAILY MAGI Administration Hydrocortisone Sodium Succinate 50 mg 10/06/19 15:00 10/07/19 15:15 Solu-Cortef - IVPB 50 mg Q6H-IV MAGI Administration Fentanyl 500 mcg in 100 mls @ 10 mls/hr 10/06/19 00:45 10/07/19 02:38 Sublimaze Ivpb IVPB 100 mcg/hr TITR MAGI 20 mls/hr Administration Protocol 50 MCG/HR Midazolam HCl 100 mg in 100 mls @ 1 mls/hr 10/06/19 00:45 10/07/19 02:39 Midazolam 100mg/100ml-0.9%Nacl IVPB 10 mg/hr TITR MAGI 10 mls/hr Administration Protocol 1 MG/HR Norepinephrine Bitartrate 16,000 mcg in 500 mls @ 9.375 mls/hr 10/06/19 07:45 10/07/19 07:48 Levophed Bag - Ns IVPB 20 mcg/min TITR MAGI 37.5 mls/hr Administration Protocol 5 MCG/MIN Piperacillin Sod/Tazobactam 50 mls @ 100 mls/hr 10/06/19 08:45 10/07/19 09:25 Sod 3.375 gm/ Dextrose IVPB 100 mls/hr Q8H-IV MAGI Administration Protocol Propofol 1,000,000 mcg in 100 mls @ 1.92 mls/hr 10/06/19 08:45 10/07/19 09:07 Diprivan - IVPB 25 mcg/kg/min TITR MAGI 9.6 mls/hr Administration Protocol 5 MCG/KG/MIN Vasopressin 40 units/ Sodium 100 mls @ 5 mls/hr 10/06/19 09:15 10/06/19 09:20 Chloride IVPB 6 units/hr ASDIR MAGI 15 mls/hr Administration Protocol 2 UNITS/HR Metoprolol Succinate 100 mg 10/06/19 10:00 Toprol Xl - PO BID MAGI Mirtazapine 15 mg 10/06/19 22:00 10/06/19 21:27 Remeron - PO 15 mg HS MAGI Administration Morphine Sulfate 4 mg 10/06/19 11:34 Morphine Sulfate IVPUSH Q4H PRN PAIN LEVEL 4 - 6 Mupirocin 1 applic 10/05/19 23:15 10/07/19 09:25 Bactroban Ointment (For Decolonization) - NS 10/10/19 23:14 1 applic BID MAGI Administration Pantoprazole Sodium 40 mg 10/06/19 11:15 10/07/19 09:25 Protonix Iv IVPUSH 40 mg DAILY MAGI Administration ASSESSMENT/PLAN: 78 yo M PMH Afib (on Eliquis), angina, CHF, HTN, HLD, GI Bleed, suspected COVID (although negative COVID test and Ab), and depression admitted to hospital for acute hypoxic respiratory failure. rapid response called for continued hypoxia despite HFOT and NRB. transferred to ICU for acute hypoxic respiratory failure possibly 2/2 to COVID pneumonitis. spoke with son and today, pt now DNR. want patient to "go peacefully", will discuss comfort care in following days depending on clinical status. Neuro/psych Depression Sedated on midazolam and fentanyl. will add morphine with hopes to improve vent synchrony - assess mental status - hold remeron Cardiac Afib, CHF, HTN, HLD. Persistent atrial flutter with periods rapid ventricular response s/p cardioversion -on levo 18 maintain MAP >65 - hold diltiazem, furosemide, metoprolol until pressures stabilize - c/w eliquis, lipitor - Troponin 0.09--> 0.11-->0.06. trend to peak - transfuse if Hb <8, due to cardiac history - tele reviewed, periods of non sustained vtach noted Pulmonary Possible COVID pneumonitis H/o home oxygen use - vent settings: 18/450/90%/8 - c/w solu cortef , fludrocortisone -CXR reviewed. ABG reviewed GI h/o GI bleed - no acute issues - c/w protonix Renal No acute issues -Monitor I/O's, Cr and electrolytes ID Possible COVID pneumonitis Leukocytosis - c/w IV tylenol PRN for fevers - trend inflammatory markers. Currently increasing trend. - f/u cultures. pending viral panel, rpt covid negative. pending legionella - c/w vanc & zosyn - ID consulted. recommendations appreciated - COVID test negative on 09/22, SARS COV-2 negative 09/29 VERONICA Ken 10/04 - DAVID 10/05 Ppx -DVT: SCD -GI ppx: protonix Dispo: ICU level of care ATTENDING PHYSICIAN STATEMENT I saw and evaluated the patient. I reviewed the resident's note and discussed the case with the resident. I agree with the resident's findings and plan as documented. SUBJECTIVE: OBJECTIVE: ASSESSMENT AND PLAN:
[2019-10-07] MEDS: ATORVASTATIN CA 40 MG TABLET (FP) PO SCH (21:14)
[2019-10-07] MEDS: CHLORHEXIDINE GLUCONATE 4% CLEANSER FOR DECOLONIZATION TP SCH (21:15)
[2019-10-07] MEDS: VASOPRESSIN 40 UNITS in SODIUM CHLORIDE 98 ML IVPB SCH (21:15)
[2019-10-07] MEDS: ACETAMINOPHEN 325 MG TABLET (FP) PO PRN (21:23)
[2019-10-08] MEDS ORDERED: DEXTROSE 5%-WATER - 50 ML IVPB ONE ×3 (01:12→17:56)
[2019-10-08] MEDS ORDERED: PIPERACILLIN/TAZOBACTAM 3.375 GM VIAL IVPB ONE ×3 (01:12→17:56)
[2019-10-08] MEDS: PIPERACILLIN/TAZOB 3.375 GM 3.375 GM in DEXTROSE 5%-WATER - 50 ML IVPB SCH ×3 (01:34→17:59)
[2019-10-08] MEDS: MIDAZOLAM IN 0.9 % SOD.CHLORID 100 MG/100 ML PLAST..BAG IVPB SCH ×2 (01:35→15:54)
[2019-10-08] MEDS: FENTANYL IVPB 500 MCG/100 ML BAG IVPB SCH ×4 (01:35→17:59)
[2019-10-08] MEDS: HYDROCORTISONE SOD SUCCINATE 100 MG/2 ML VIAL IVPB SCH ×4 (02:07→22:24)
[2019-10-08 06:51] LABS: ARTERIAL BLD GAS O2 SATURATION 99.6 mmHg (95-98); ARTERIAL BLOOD GAS BASE EXCESS 0 mmol/L (-2-2); ARTERIAL BLOOD GAS PO2 256.6 mmHg (80-100); ARTERIAL BLOOD GAS pH 7.365 (7.350-7.450)
[2019-10-08 07:09] LABS: ALLENS TEST POSITIVE
[2019-10-08 07:10] LABS: VENT MODE A/C
[2019-10-08 07:11] LABS: VENT RATE 18
[2019-10-08 08:03] LABS: BASO % 0.1 % (0-2.0); HEMATOCRIT 23.8 % (35.4-49); HEMOGLOBIN 7.5 GM/dL (11.7-16.9); LYMPH % 1.8 % (8-40); MCH 29.6 pg (25.7-33.7); MCHC 31.5 g/dl (32.0-35.9); MEAN CELL VOLUME 94.2 fl (80-96); MEAN PLT VOLUME 8.4 fl (7.5-11.1); MONO % 1.5 % (3.8-10.2); NEUT % 96.6 % (42.8-82.8); PLATELET COUNT 136 K/MM3 (134-434); RBC 2.53 M/mm3 (4.00-5.60); RDW 16.9 % (11.9-15.9); WHITE BLOOD COUNT 15.7 K/mm3 (4.0-10.0)
[2019-10-08 08:15] LABS: ALBUMIN 1.6 g/dl (3.4-5.0); BILIRUBIN,TOTAL 0.9 mg/dL (0.2-1); BLOOD UREA NITROGEN 27.1 mg/dL (7-18); CALCIUM 7.5 mg/dL (8.5-10.1); CREATININE 0.9 mg/dL (0.55-1.3); MAGNESIUM 2.6 mg/dL (1.8-2.4); PHOSPHOROUS 2.6 mg/dL (2.5-4.9); POTASSIUM 4.1 mmol/L (3.5-5.1)
--- NOTE | 2019-10-08 08:18 | PN ---
Physical Exam: SUBJECTIVE: Patient seen and examined at bedside; no acute events overnight- family meeting was held yesterday patient is now DNR; family needa few more days to until comfort care is initiated' patient is now on only 1 pressor OBJECTIVE: Vital Signs Period Temp Pulse Resp BP Sys/Amador Pulse Ox Last 24 Hr 98.1 F-100.3 F 63-70 14-18 110-139/52-62 100-100 GENERAL: patient is intubated; sedated EYES: PEERLA; EOMI; no scleral icterus NECK: no JVD; no lymphadenopathy. LUNGS: distant breath sounds b/l HEART: Regular rate and rhythm, S1, S2 without murmur, rub or gallop. ABDOMEN: Soft, NT/ND +BS in all 4 quadrants EXTREMITIES: 2+ pulses, warm, well-perfused, trace pedal edema b/l. NEUROLOGICAL: unable to assess PSYCH: Normal mood, normal affect. SKIN: Warm, dry, normal turgor, no rashes or lesions noted Laboratory Results - last 24 hr 10/06/19 10/07/19 10/07/19 06:00 05:36 05:36 WBC 28.8 H RBC Hgb Hct MCV MCH MCHC RDW Plt Count MPV Absolute Neuts (auto) Total Counted Neutrophils % Neutrophils % (Manual) 98.0 H Band Neutrophils % 0.0 Lymphocytes % Lymphocytes % (Manual) 1.0 L D Monocytes % Monocytes % (Manual) 1 L Eosinophils % Eosinophils % (Manual) 0.0 Basophils % Basophils % (Manual) 0.0 Myelocytes % (Man) 0 Promyelocytes % (Man) 0 Blast Cells % (Manual) 0 Nucleated RBC % 0 Metamyelocytes 0 Differential Comment Hypersegmented Neuts Plasma Cells Smudge Cells Other Cell Type Hypochromia 0 Toxic Granulation Dohle Bodies Jesse Rods Platelet Estimate Normal Platelet Comment Polychromasia 0 Poikilocytosis 0 Basophilic Stippling 1+ Anisocytosis 1+ Microcytosis 1+ Macrocytosis 0 Spherocytes Siderocytes Sickle Cells Target Cells Tear Drop Cells Ovalocytes Stomatocytes Helmet Cells [place] Bodies [place] Rings [place] Cells Acanthocytes (Spur) Rouleaux Fragmented RBCs Schistocytes Anticoagulation Therapy Puncture Site Patient Temperature ABG pH ABG pCO2 ABG pO2 ABG HCO3 ABG O2 Sat (Measured) ABG O2 Content ABG Base Excess Polo Test Patient On Oxygen O2 Delivery Device Oxygen Flow Rate Vent Mode Vent Rate Mechanical Rate PEEP Pressure Support Vent Sodium 140 Potassium 4.4 Chloride 108 H Carbon Dioxide 25 Anion Gap 7 L BUN 39.3 H Creatinine 1.3 Est GFR (CKD-EPI)AfAm 61.00 Est GFR (CKD-EPI)NonAf 52.63 Random Glucose 186 H Calcium 7.2 L Phosphorus 5.6 H Magnesium 2.2 Total Bilirubin 1.1 H AST 30 ALT 54 Alkaline Phosphatase 70 Troponin I 0.06 H Total Protein 5.5 L Albumin 1.9 L COVID-19 (MAYA) Not detected 10/07/19 10/08/19 10/08/19 05:36 06:20 06:30 WBC 15.7 H RBC 2.53 L Hgb 7.5 L Hct 23.8 L MCV 94.2 MCH 29.6 MCHC 31.5 L RDW 16.9 H Plt Count 136 MPV 8.4 Absolute Neuts (auto) 15.1 H Total Counted Cancelled Neutrophils % 96.6 H Neutrophils % (Manual) Cancelled Band Neutrophils % Cancelled Lymphocytes % 1.8 L D Lymphocytes % (Manual) Cancelled Monocytes % 1.5 L Monocytes % (Manual) Cancelled Eosinophils % 0.0 Eosinophils % (Manual) Cancelled Basophils % 0.1 Basophils % (Manual) Cancelled Myelocytes % (Man) Cancelled Promyelocytes % (Man) Cancelled Blast Cells % (Manual) Cancelled Nucleated RBC % Cancelled 0 Metamyelocytes Cancelled Differential Comment Cancelled Hypersegmented Neuts Cancelled Plasma Cells Cancelled Smudge Cells Cancelled Other Cell Type Cancelled Hypochromia Cancelled Toxic Granulation Cancelled Dohle Bodies Cancelled Jesse Rods Cancelled Platelet Estimate Cancelled Platelet Comment Cancelled Polychromasia Cancelled Poikilocytosis Cancelled Basophilic Stippling Cancelled Anisocytosis Cancelled Microcytosis Cancelled Macrocytosis Cancelled Spherocytes Cancelled Siderocytes Cancelled Sickle Cells Cancelled Target Cells Cancelled Tear Drop Cells Cancelled Ovalocytes Cancelled Stomatocytes Cancelled Helmet Cells Cancelled [place] Bodies Cancelled [place] Rings Cancelled [place] Cells Cancelled Acanthocytes (Spur) Cancelled Rouleaux Cancelled Fragmented RBCs Cancelled Schistocytes Cancelled Anticoagulation Therapy No Result Required. Puncture Site Right radial Patient Temperature No Result Required. ABG pH 7.365 ABG pCO2 45.60 H ABG pO2 256.6 H ABG HCO3 25.5 ABG O2 Sat (Measured) 99.6 H ABG O2 Content No Result Required. ABG Base Excess 0 Polo Test Positive Patient On Oxygen Yes O2 Delivery Device Vent Oxygen Flow Rate 90% Vent Mode A/c Vent Rate 18 Mechanical Rate Vent PEEP 8.0 Pressure Support Vent 450 Sodium Potassium Chloride Carbon Dioxide Anion Gap BUN Creatinine Est GFR (CKD-EPI)AfAm Est GFR (CKD-EPI)NonAf Random Glucose Calcium Phosphorus Magnesium Total Bilirubin AST ALT Alkaline Phosphatase Troponin I Total Protein Albumin COVID-19 (MAYA) Active Medications Generic Name Dose Route Start Last Admin Trade Name Freq PRN Reason Stop Dose Admin Acetaminophen 650 mg 10/06/19 00:25 10/07/19 21:23 Tylenol - PO 650 mg Q6H PRN Administration FEVER Albuterol Sulfate 2 puff 10/06/19 00:25 Ventolin Hfa Inhaler - IH Q4H PRN SHORT OF BREATH/WHEEZING Apixaban 5 mg 10/06/19 10:00 10/07/19 21:15 Eliquis - PO 5 mg BID MAGI Administration Atorvastatin Calcium 40 mg 10/06/19 22:00 10/07/19 21:14 Lipitor - PO 40 mg HS MAGI Administration Chlorhexidine Gluconate 1 applic 10/06/19 22:00 10/07/19 21:15 Hibiclens For Decolonization - TP 1 applic HS MAGI Administration Diltiazem HCl 180 mg 10/06/19 10:00 Cardizem Cd - PO DAILY MAGI Fludrocortisone Acetate 0.2 mg 10/06/19 11:15 10/07/19 09:10 Florinef - PO 0.2 mg DAILY MAGI Administration Hydrocortisone Sodium Succinate 50 mg 10/06/19 15:00 10/08/19 02:07 Solu-Cortef - IVPB 50 mg Q6H-IV MAGI Administration Fentanyl 500 mcg in 100 mls @ 10 mls/hr 10/06/19 00:45 10/08/19 06:11 Sublimaze Ivpb IVPB 100 mcg/hr TITR MAGI 20 mls/hr Administration Protocol 50 MCG/HR Midazolam HCl 100 mg in 100 mls @ 1 mls/hr 10/06/19 00:45 10/08/19 01:35 Midazolam 100mg/100ml-0.9%Nacl IVPB 10 mg/hr TITR MAGI 10 mls/hr Administration Protocol 1 MG/HR Norepinephrine Bitartrate 16,000 mcg in 500 mls @ 9.375 mls/hr 10/06/19 07:45 10/08/19 06:09 Levophed Bag - Ns IVPB 5 mcg/min TITR MAGI 9.375 mls/hr Titration Protocol 5 MCG/MIN Piperacillin Sod/Tazobactam 50 mls @ 100 mls/hr 10/06/19 08:45 10/08/19 01:34 Sod 3.375 gm/ Dextrose IVPB 100 mls/hr Q8H-IV MAGI Administration Protocol Propofol 1,000,000 mcg in 100 mls @ 1.92 mls/hr 10/06/19 08:45 10/08/19 06:10 Diprivan - IVPB 25 mcg/kg/min TITR MAGI 9.6 mls/hr Titration Protocol 5 MCG/KG/MIN Vasopressin 40 units/ Sodium 100 mls @ 5 mls/hr 10/06/19 09:15 10/07/19 22:00 Chloride IVPB 0 units/hr ASDIR MAGI 0 mls/hr Titration Protocol 2 UNITS/HR Metoprolol Succinate 100 mg 10/06/19 10:00 Toprol Xl - PO BID MAGI Mirtazapine 15 mg 10/06/19 22:00 10/06/19 21:27 Remeron - PO 15 mg HS MAGI Administration Morphine Sulfate 4 mg 10/06/19 11:34 Morphine Sulfate IVPUSH Q4H PRN PAIN LEVEL 4 - 6 Mupirocin 1 applic 10/05/19 23:15 10/07/19 21:24 Bactroban Ointment (For Decolonization) - NS 10/10/19 23:14 1 applic BID MAGI Administration Pantoprazole Sodium 40 mg 10/06/19 11:15 10/07/19 09:25 Protonix Iv IVPUSH 40 mg DAILY MAGI Administration ASSESSMENT/PLAN: 78 yo M PMH Afib (on Eliquis), angina, CHF, HTN, HLD, GI Bleed, suspected COVID (although negative COVID test and Ab), and depression admitted to hospital for acute hypoxic respiratory failure. rapid response called for continued hypoxia despite HFOT and NRB. transferred to ICU for acute hypoxic respiratory failure possibly 2/2 to COVID pneumonitis. spoke with son and today, pt now DNR. want patient to "go peacefully", will discuss comfort care in following days depending on clinical status. Neuro/psych Depression Sedated on midazolam, propofol and fentanyl. will add morphine with hopes to improve vent synchrony - assess mental status - hold remeron Cardiac Afib, CHF, HTN, HLD. Persistent atrial flutter with periods rapid ventricular response s/p cardioversion -on levo 5 maintain MAP >65 - hold diltiazem, furosemide, metoprolol until pressures stabilize - c/w eliquis, lipitor - transfuse if Hb <8, due to cardiac history - tele reviewed, periods of non sustained vtach noted Pulmonary Possible COVID pneumonitis H/o home oxygen use - vent settings: 18/450/90%/8 - c/w solu cortef , fludrocortisone -CXR reviewed. ABG reviewed GI h/o GI bleed - no acute issues - c/w protonix Renal No acute issues -Monitor I/O's, Cr and electrolytes ID Possible COVID pneumonitis Leukocytosis - c/w IV tylenol PRN for fevers - trend inflammatory markers. Currently increasing trend. - f/u cultures. pending viral panel, rpt covid negative. pending legionella - c/w vanc & zosyn - ID consulted. recommendations appreciated - COVID test negative on 09/22, SARS COV-2 negative 09/29 VERONICA -Sherice 10/04 - DAVID 10/05 Ppx -DVT: SCD/ eliquis -GI ppx: protonix code status: DNR Problem List - Problems (1) Acute on chronic diastolic (congestive) heart failure Code(s): I50.33 - ACUTE ON CHRONIC DIASTOLIC (CONGESTIVE) HEART FAILURE (2) Acute respiratory failure with hypoxia Code(s): J96.01 - ACUTE RESPIRATORY FAILURE WITH HYPOXIA Visit type - Emergency Visit Emergency Visit: Yes ED Registration Date: 09/23/19 Care time: The patient presented to the Emergency Department on the above date and was hospitalized for further evaluation of their emergent condition. - New Patient This patient is new to me today: No - Critical Care Critical Care patient: Yes Total Critical Care Time (in minutes): 35 Critical Care Statement: The care of this patient involved high complexity decision making to prevent further life threatening deterioration of the patient's condition and/or to evaluate & treat vital organ system(s) failure or risk of failure. - Discharge Referral Physician Referral: MIRZA Holbrook ([facility]) - Medication Review Med list reviewed for High Risk Meds patients 65 and older: Yes ATTENDING PHYSICIAN STATEMENT I saw and evaluated the patient. I reviewed the resident's note and discussed the case with the resident. I agree with the resident's findings and plan as documented. SUBJECTIVE: OBJECTIVE: ASSESSMENT AND PLAN:
--- NOTE | 2019-10-08 08:49 | PN ---
Progress Note, Physician History of Present Illness: Sedated and intubated on pressors via RIJ for acute on chronic hypoxic respiratory failure. Remains in NSR post DCCV. - Current Medication List Current Medications: Active Medications Acetaminophen (Tylenol -) 650 mg PO Q6H PRN PRN Reason: FEVER Last Admin: 10/07/19 21:23 Dose: 650 mg Documented by: Albuterol Sulfate (Ventolin Hfa Inhaler -) 2 puff IH Q4H PRN PRN Reason: SHORT OF BREATH/WHEEZING Apixaban (Eliquis -) 5 mg PO BID [facility] Last Admin: 10/07/19 21:15 Dose: 5 mg Documented by: Atorvastatin Calcium (Lipitor -) 40 mg PO HS [facility] Last Admin: 10/07/19 21:14 Dose: 40 mg Documented by: Chlorhexidine Gluconate (Hibiclens For Decolonization -) 1 applic TP HS [facility] Last Admin: 10/07/19 21:15 Dose: 1 applic Documented by: Diltiazem HCl (Cardizem Cd -) 180 mg PO DAILY [facility] Fludrocortisone Acetate (Florinef -) 0.2 mg PO DAILY [facility] Last Admin: 10/07/19 09:10 Dose: 0.2 mg Documented by: Hydrocortisone Sodium Succinate (Solu-Cortef -) 50 mg IVPB Q6H-IV [facility] Last Admin: 10/08/19 02:07 Dose: 50 mg Documented by: Fentanyl (Sublimaze Ivpb) 500 mcg in 100 mls @ 10 mls/hr IVPB TITR [facility]; Protocol Last Admin: 10/08/19 06:11 Dose: 100 mcg/hr, 20 mls/hr Documented by: Midazolam HCl (Midazolam 100mg/100ml-0.9%Nacl) 100 mg in 100 mls @ 1 mls/hr IVPB TITR [facility]; Protocol Last Admin: 10/08/19 01:35 Dose: 10 mg/hr, 10 mls/hr Documented by: Norepinephrine Bitartrate (Levophed Bag - Ns) 16,000 mcg in 500 mls @ 9.375 mls/hr IVPB TITR [facility]; Protocol Last Titration: 10/08/19 06:09 Dose: 5 mcg/min, 9.375 mls/hr Documented by: Piperacillin Sod/Tazobactam (Sod 3.375 gm/ Dextrose) 50 mls @ 100 mls/hr IVPB Q8H-IV [facility]; Protocol Last Admin: 10/08/19 01:34 Dose: 100 mls/hr Documented by: Propofol (Diprivan -) 1,000,000 mcg in 100 mls @ 1.92 mls/hr IVPB TITR [facility]; Protocol Last Titration: 10/08/19 06:10 Dose: 25 mcg/kg/min, 9.6 mls/hr Documented by: Vasopressin 40 units/ Sodium (Chloride) 100 mls @ 5 mls/hr IVPB ASDIR [facility]; Protocol Last Titration: 10/07/19 22:00 Dose: 0 units/hr, 0 mls/hr Documented by: Metoprolol Succinate (Toprol Xl -) 100 mg PO BID [facility] Mirtazapine (Remeron -) 15 mg PO HS [facility] Last Admin: 10/06/19 21:27 Dose: 15 mg Documented by: Morphine Sulfate (Morphine Sulfate) 4 mg IVPUSH Q4H PRN PRN Reason: PAIN LEVEL 4 - 6 Mupirocin (Bactroban Ointment (For Decolonization) -) 1 applic NS BID [facility] Stop: 10/10/19 23:14 Last Admin: 10/07/19 21:24 Dose: 1 applic Documented by: Pantoprazole Sodium (Protonix Iv) 40 mg IVPUSH DAILY [facility] Last Admin: 10/07/19 09:25 Dose: 40 mg Documented by: - Objective Vital Signs: Vital Signs Temperature 98.3 F 10/08/19 07:47 Pulse Rate 70 10/08/19 08:14 Respiratory Rate 18 10/08/19 08:14 Blood Pressure 110/52 L 10/08/19 07:47 O2 Sat by Pulse Oximetry (%) 99 10/08/19 08:14 Constitutional: Yes: Other (Sedated and inthubated) Cardiovascular: Yes: Regular Rate and Rhythm Respiratory: Yes: Intubated, Mechanically Ventilated, Rhonchi Gastrointestinal: Yes: Soft, Hypoactive Bowel Sounds Genitourinary: Yes: Smiley Present Edema: No Labs: CBC, BMP 10/08/19 06:30 10/08/19 06:30 INR, PTT INR 1.97 (0.83-1.09) H 09/23/19 18:40 - ....Imaging Chest X-ray: Report Reviewed (Congestion with pleural fluid) Problem List - Problems (1) Acute on chronic diastolic (congestive) heart failure Code(s): I50.33 - ACUTE ON CHRONIC DIASTOLIC (CONGESTIVE) HEART FAILURE (2) Acute respiratory failure with hypoxia Code(s): J96.01 - ACUTE RESPIRATORY FAILURE WITH HYPOXIA (3) Aortic valve stenosis Code(s): I35.0 - NONRHEUMATIC AORTIC (VALVE) STENOSIS Qualifiers: Cardiac valve disease etiology: nonrheumatic Qualified Code(s): I35.0 - Nonrheumatic aortic (valve) stenosis (4) Atrial flutter Code(s): I48.92 - UNSPECIFIED ATRIAL FLUTTER Qualifiers: Atrial flutter type: typical Qualified Code(s): I48.3 - Typical atrial flutter (5) CAD (coronary artery disease) Code(s): I25.10 - ATHSCL HEART DISEASE OF [place] CORONARY ARTERY W/O ANG PCTRS Qualifiers: Coronary Disease-Associated Artery/Lesion type: [place] artery [place] vs. transplanted heart: [place] heart Associated angina: without angina Qualified Code(s): I25.10 - Atherosclerotic heart disease of [place] coronary artery without angina pectoris (6) HTN (hypertension) Code(s): I10 - ESSENTIAL (PRIMARY) HYPERTENSION Qualifiers: Hypertension type: essential hypertension Qualified Code(s): I10 - Essential (primary) hypertension (7) Hx of CABG Code(s): Z95.1 - PRESENCE OF AORTOCORONARY BYPASS GRAFT (8) Hypercholesterolemia Code(s): E78.00 - PURE HYPERCHOLESTEROLEMIA, UNSPECIFIED (9) S/P AVR (aortic valve replacement) Code(s): Z95.2 - PRESENCE OF PROSTHETIC HEART VALVE (10) S/P left atrial appendage ligation Code(s): Z98.890 - OTHER SPECIFIED POSTPROCEDURAL STATES (11) Suspected COVID-19 virus infection Code(s): Z20.828 - CONTACT W AND EXPOSURE TO [facility] VIRAL COMMUNICABLE DISEASES Assessment/Plan Echo 09/03/2019 Post-op septal motion, normal LVEF 50-55%, mod cLVH, normal RV size and fxn, mild LAE, mild MR, TR, bioAVR, mild AR, restrictive physiology Echocardiography October 12, 2018 revealed mild degree of concentric left ventricular hypertrophy with normal left ventricular systolic function and estimated LVEF between 65-70%, mild left atrial dilatation, normal right ventricular size and systolic function, aortic valve bioprosthesis with no aortic valve insufficiency, moderately dilated ascending aorta, mild thickening of the mitral valve leaflets with mild mitral valve regurgitation, mild to moderate tricuspid valve regurgitation with calculated RVSP of [address]: Small-moderate right and very small left effusion, pulm edema TAA 3.9 cm 1. Recurrent acute hypoxic respiratory failure related to bronchopneumonia with probable sepsis syndrome, coronavirus/COVID 19- residual infiltrates 2. Clinical presentation is consistent with chronic class I-II NYHA classifica tion LV diastolic heart failure, no evidence of acute decompensation- as outlined in the prior notes chest x-ray findings related to patient's recent coronavirus/COVID 19 pneumonitis- elevated BNP level related to patient's chronic heart failure syndrome and persistence of atrial arrhythmia/atrial f lutter 3. Paroxysmal atrial flutter with periods rapid ventricular response now in SR post DCCV [id number] score of 5 on DOAC's/Eliquis 4. CAD post CABG with evidence of demand ischemia related to the above-noted clinical presentation angina pectoris 5. Aortic valve stenosis post SAVR/bio-prosthesis- with LA appendage ligation 6. Hypertensive cardiovascular disease 7. Hypercholesterolemia 8. History of altered mental status etiology of which was unclear- prior history of clinical depression 9. History of bacteremia- endocarditis unlikely 10. Anemia PLAN: 1. Wean pressors for MAP>65 mmHg 2. Wean FIO2 and PEEP to maintain saO2, BD, IV steroids with GI protection, empiric abx course 3. Start sotalol 80 bid pending hemodynamic stability 4. Continue Atorvastatin 40 qd, Eliquis 5 bid 5. Holding off diuresis monitoring of volume status, renal function and electrolytes 6. DNR per HCP
[2019-10-08] MEDS: APIXABAN 5 MG TABLET PO SCH ×2 (09:27→22:25)
[2019-10-08] MEDS: FLUDROCORTISONE ACETATE 0.1 MG TABLET (FP) PO SCH (09:27)
[2019-10-08] MEDS: PROPOFOL 1,000,000 MCG/100 ML VIAL IVPB SCH (09:29)
[2019-10-08] MEDS: VASOPRESSIN 40 UNITS in SODIUM CHLORIDE 98 ML IVPB SCH (09:30)
[2019-10-08] MEDS: PANTOPRAZOLE SODIUM 40 MG VIAL IVPUSH SCH (09:31)
[2019-10-08] MEDS: MUPIROCIN 2% TOPICAL OINTMENT FOR DECOLONIZATION NS SCH ×2 (09:37→22:25)
[2019-10-08] MEDS: NOREPINEPHRINE NS PREMIX 16,000 MCG/500 ML BAG IVPB SCH (09:39)
[2019-10-08 10:01] LABS: ANISOCYTOSIS 1+; MACROCYTOSIS 0; PLATELET ESTIMATE DECREASED
--- NOTE | 2019-10-08 10:07 | PN ---
Progress Note, Physician History of Present Illness: pt seen/ examined in icu chart reviewed now intubated/sedated - Current Medication List Current Medications: Active Medications Acetaminophen (Tylenol -) 650 mg PO Q6H PRN PRN Reason: FEVER Last Admin: 10/07/19 21:23 Dose: 650 mg Documented by: Albuterol Sulfate (Ventolin Hfa Inhaler -) 2 puff IH Q4H PRN PRN Reason: SHORT OF BREATH/WHEEZING Apixaban (Eliquis -) 5 mg PO BID [facility] Last Admin: 10/08/19 09:27 Dose: 5 mg Documented by: Atorvastatin Calcium (Lipitor -) 40 mg PO HS [facility] Last Admin: 10/07/19 21:14 Dose: 40 mg Documented by: Chlorhexidine Gluconate (Hibiclens For Decolonization -) 1 applic TP [facility] Last Admin: 10/07/19 21:15 Dose: 1 applic Documented by: Diltiazem HCl (Cardizem Cd -) 180 mg PO DAILY [facility] Fludrocortisone Acetate (Florinef -) 0.2 mg PO DAILY [facility] Last Admin: 10/08/19 09:27 Dose: 0.2 mg Documented by: Hydrocortisone Sodium Succinate (Solu-Cortef -) 50 mg IVPB Q6H-IV [facility] Last Admin: 10/08/19 09:28 Dose: 50 mg Documented by: Fentanyl (Sublimaze Ivpb) 500 mcg in 100 mls @ 10 mls/hr IVPB TITR [facility]; Protocol Last Admin: 10/08/19 06:11 Dose: 100 mcg/hr, 20 mls/hr Documented by: Midazolam HCl (Midazolam 100mg/100ml-0.9%Nacl) 100 mg in 100 mls @ 1 mls/hr IVPB TITR [facility]; Protocol Last Admin: 10/08/19 01:35 Dose: 10 mg/hr, 10 mls/hr Documented by: Norepinephrine Bitartrate (Levophed Bag - Ns) 16,000 mcg in 500 mls @ 9.375 mls/hr IVPB TITR [facility]; Protocol Last Admin: 10/08/19 09:39 Dose: 5 mcg/min, 9.375 mls/hr Documented by: Piperacillin Sod/Tazobactam (Sod 3.375 gm/ Dextrose) 50 mls @ 100 mls/hr IVPB Q8H-IV [facility]; Protocol Last Admin: 10/08/19 09:31 Dose: 100 mls/hr Documented by: Propofol (Diprivan -) 1,000,000 mcg in 100 mls @ 1.92 mls/hr IVPB TITR [facility]; Protocol Last Admin: 10/08/19 09:29 Dose: Not Given Documented by: Vasopressin 40 units/ Sodium (Chloride) 100 mls @ 5 mls/hr IVPB [facility]; Protocol Last Admin: 10/08/19 09:30 Dose: Not Given Documented by: Metoprolol Succinate (Toprol Xl -) 100 mg PO BID [facility] Mirtazapine (Remeron -) 15 mg PO HS [facility] Last Admin: 10/06/19 21:27 Dose: 15 mg Documented by: Morphine Sulfate (Morphine Sulfate) 4 mg IVPUSH Q4H PRN PRN Reason: PAIN LEVEL 4 - 6 Mupirocin (Bactroban Ointment (For Decolonization) -) 1 applic NS BID [facility] Stop: 10/10/19 23:14 Last Admin: 10/08/19 09:37 Dose: 1 applic Documented by: Pantoprazole Sodium (Protonix Iv) 40 mg IVPUSH DAILY [facility] Last Admin: 10/08/19 09:31 Dose: 40 mg Documented by: - Objective Vital Signs: Vital Signs Temperature 98.3 F 10/08/19 07:47 Pulse Rate 70 10/08/19 08:14 Respiratory Rate 18 10/08/19 08:14 Blood Pressure 110/52 L 10/08/19 07:47 O2 Sat by Pulse Oximetry (%) 99 10/08/19 08:14 Neck: Yes: Supple Cardiovascular: Yes: Pulse Irregular. No: Regular Rate and Rhythm Respiratory: Yes: Diminished Gastrointestinal: Yes: Soft Edema: No Labs: CBC, BMP 10/08/19 06:30 10/08/19 06:30 INR, PTT INR 1.97 (0.83-1.09) H 09/23/19 18:40 Fibrinogen > 500.0 mg/dL (238-498) H 10/08/19 06:30 Problem List - Problems (1) Acute respiratory failure with hypoxia Code(s): J96.01 - ACUTE RESPIRATORY FAILURE WITH HYPOXIA (2) Atrial fibrillation Code(s): I48.91 - UNSPECIFIED ATRIAL FIBRILLATION (3) CAD (coronary artery disease) Code(s): I25.10 - ATHSCL HEART DISEASE OF [place] CORONARY ARTERY W/O ANG PCTRS Qualifiers: Coronary Disease-Associated Artery/Lesion type: [place] artery [place] vs. transplanted heart: [place] heart Associated angina: without angina Qualified Code(s): I25.10 - Atherosclerotic heart disease of [place] coronary artery without angina pectoris (4) History of depression Code(s): Z86.59 - PERSONAL HISTORY OF OTHER MENTAL AND BEHAVIORAL DISORDERS (5) S/P AVR (aortic valve replacement) Code(s): Z95.2 - PRESENCE OF PROSTHETIC HEART VALVE (6) Suspected 2019 novel coronavirus infection Code(s): Z20.828 - CONTACT W AND EXPOSURE TO [facility] VIRAL COMMUNICABLE DISEASES Assessment/Plan acute respiratory failure Fever, pneumonitis CHF decompensation Aflutter -- COVID negative -- on stress steroids --pressor support --s/p cardioversion -- --broad spectrum antibiotics -- overall condition--is poor Patient is DNR Continue present care Discussed with ICU team also today Critical care time--approximately 35 minute
--- NOTE | 2019-10-08 13:07 | PN ---
Teaching Attending Note Name of Resident: Karma Oliveira ATTENDING PHYSICIAN STATEMENT I saw and evaluated the patient. I reviewed the resident's note and discussed the case with the resident. I agree with the resident's findings and plan as documented. SUBJECTIVE: Patient seen and examined in the ICU. Remains intubated and sedated. AC Mode of vent. PPlat: 25 NE @ 5 mcq for hemodynamic support. CXR: Improving ARDS pattern Intake & Output 10/05/19 10/06/19 10/07/19 10/08/19 23:59 23:59 23:59 23:59 Intake Total 320 1610.2 1885.6 820 Output Total 973 654 3703 700 Balance -530 1290.2 885.6 120 Weight 141 lb 1.533 oz 142 lb 6.698 oz 149 lb 11.102 oz Last Vital Signs Temp Pulse Resp BP Pulse Ox 98.3 F 70 18 110/52 L 99 10/08/19 07:47 10/08/19 08:14 10/08/19 11:58 10/08/19 07:47 10/08/19 12:11 Active Medications Acetaminophen (Tylenol -) 650 mg PO Q6H PRN PRN Reason: FEVER Last Admin: 10/07/19 21:23 Dose: 650 mg Documented by: Albuterol Sulfate (Ventolin Hfa Inhaler -) 2 puff IH Q4H PRN PRN Reason: SHORT OF BREATH/WHEEZING Apixaban (Eliquis -) 5 mg PO BID [facility] Last Admin: 10/08/19 09:27 Dose: 5 mg Documented by: Atorvastatin Calcium (Lipitor -) 40 mg PO HS [facility] Last Admin: 10/07/19 21:14 Dose: 40 mg Documented by: Chlorhexidine Gluconate (Hibiclens For Decolonization -) 1 applic TP [facility] Last Admin: 10/07/19 21:15 Dose: 1 applic Documented by: Diltiazem HCl (Cardizem Cd -) 180 mg PO DAILY [facility] Fludrocortisone Acetate (Florinef -) 0.2 mg PO DAILY [facility] Last Admin: 10/08/19 09:27 Dose: 0.2 mg Documented by: Hydrocortisone Sodium Succinate (Solu-Cortef -) 50 mg IVPB Q6H-IV [facility] Last Admin: 10/08/19 09:28 Dose: 50 mg Documented by: Fentanyl (Sublimaze Ivpb) 500 mcg in 100 mls @ 10 mls/hr IVPB TITR [facility]; Protocol Last Admin: 10/08/19 11:31 Dose: 100 mcg/hr, 20 mls/hr Documented by: Midazolam HCl (Midazolam 100mg/100ml-0.9%Nacl) 100 mg in 100 mls @ 1 mls/hr IVPB TITR [facility]; Protocol Last Admin: 10/08/19 01:35 Dose: 10 mg/hr, 10 mls/hr Documented by: Norepinephrine Bitartrate (Levophed Bag - Ns) 16,000 mcg in 500 mls @ 9.375 mls/hr IVPB TITR [facility]; Protocol Last Admin: 10/08/19 09:39 Dose: 5 mcg/min, 9.375 mls/hr Documented by: Piperacillin Sod/Tazobactam (Sod 3.375 gm/ Dextrose) 50 mls @ 100 mls/hr IVPB Q8H-IV [facility]; Protocol Last Admin: 10/08/19 09:31 Dose: 100 mls/hr Documented by: Propofol (Diprivan -) 1,000,000 mcg in 100 mls @ 1.92 mls/hr IVPB TITR [facility]; Protocol Last Admin: 10/08/19 09:29 Dose: Not Given Documented by: Vasopressin 40 units/ Sodium (Chloride) 100 mls @ 5 mls/hr IVPB [facility]; Protocol Last Admin: 10/08/19 09:30 Dose: Not Given Documented by: Metoprolol Succinate (Toprol Xl -) 100 mg PO BID [facility] Mirtazapine (Remeron -) 15 mg PO HS [facility] Last Admin: 10/06/19 21:27 Dose: 15 mg Documented by: Morphine Sulfate (Morphine Sulfate) 4 mg IVPUSH Q4H PRN PRN Reason: PAIN LEVEL 4 - 6 Mupirocin (Bactroban Ointment (For Decolonization) -) 1 applic NS BID [facility] Stop: 10/10/19 23:14 Last Admin: 10/08/19 09:37 Dose: 1 applic Documented by: Pantoprazole Sodium (Protonix Iv) 40 mg IVPUSH DAILY [facility] Last Admin: 10/08/19 09:31 Dose: 40 mg Documented by: Constitutional: Yes: Intubated and sedated Eyes: Yes: (-) Pallor HENT: Yes: WNL Neck: Yes: WNL Cardiovascular: Yes: Pulse Irregular, S1, S2 Respiratory: Yes: Vented, bilateral Rales/rhonchi Gastrointestinal: Yes: Normal Bowel Sounds, Soft Extremities: Yes: WNL Edema: No Labs: Laboratory Results - last 24 hr 10/08/19 10/08/19 10/08/19 06:20 06:30 06:30 WBC 15.7 H RBC 2.53 L Hgb 7.5 L Hct 23.8 L MCV 94.2 MCH 29.6 MCHC 31.5 L RDW 16.9 H Plt Count 136 MPV 8.4 Absolute Neuts (auto) 15.1 H Neutrophils % 96.6 H Neutrophils % (Manual) 99.0 H Band Neutrophils % 0.0 Lymphocytes % 1.8 L D Lymphocytes % (Manual) 0.0 L Monocytes % 1.5 L Monocytes % (Manual) 1 L Eosinophils % 0.0 Eosinophils % (Manual) 0.0 Basophils % 0.1 Basophils % (Manual) 0.0 Myelocytes % (Man) 0 Promyelocytes % (Man) 0 Blast Cells % (Manual) 0 Nucleated RBC % 0 Metamyelocytes 0 Hypochromia 0 Platelet Estimate Decreased Polychromasia 1+ Poikilocytosis 0 Anisocytosis 1+ Microcytosis 0 Macrocytosis 0 Fibrinogen > 500.0 H D-Dimer 601 H Anticoagulation Therapy No Result Required. Puncture Site Right radial Patient Temperature No Result Required. ABG pH 7.365 ABG pCO2 45.60 H ABG pO2 256.6 H ABG HCO3 25.5 ABG O2 Sat (Measured) 99.6 H ABG O2 Content No Result Required. ABG Base Excess 0 Polo Test Positive Patient On Oxygen Yes O2 Delivery Device Vent Oxygen Flow Rate 90% Vent Mode A/c Vent Rate 18 Mechanical Rate Vent PEEP 8.0 Pressure Support Vent 450 Sodium Potassium Chloride Carbon Dioxide Anion Gap BUN Creatinine Est GFR (CKD-EPI)AfAm Est GFR (CKD-EPI)NonAf Random Glucose Calcium Phosphorus Magnesium Ferritin Total Bilirubin AST ALT Alkaline Phosphatase LD Total Total Protein Albumin 10/08/19 06:30 WBC RBC Hgb Hct MCV MCH MCHC RDW Plt Count MPV Absolute Neuts (auto) Neutrophils % Neutrophils % (Manual) Band Neutrophils % Lymphocytes % Lymphocytes % (Manual) Monocytes % Monocytes % (Manual) Eosinophils % Eosinophils % (Manual) Basophils % Basophils % (Manual) Myelocytes % (Man) Promyelocytes % (Man) Blast Cells % (Manual) Nucleated RBC % Metamyelocytes Hypochromia Platelet Estimate Polychromasia Poikilocytosis Anisocytosis Microcytosis Macrocytosis Fibrinogen D-Dimer Anticoagulation Therapy Puncture Site Patient Temperature ABG pH ABG pCO2 ABG pO2 ABG HCO3 ABG O2 Sat (Measured) ABG O2 Content ABG Base Excess Polo Test Patient On Oxygen O2 Delivery Device Oxygen Flow Rate Vent Mode Vent Rate Mechanical Rate PEEP Pressure Support Vent Sodium 143 Potassium 4.1 Chloride 111 H Carbon Dioxide 28 Anion Gap 5 L BUN 27.1 H Creatinine 0.9 Est GFR (CKD-EPI)AfAm 95.15 Est GFR (CKD-EPI)NonAf 82.09 Random Glucose 164 H Calcium 7.5 L Phosphorus 2.6 Magnesium 2.6 H Ferritin 1822.8 H Total Bilirubin 0.9 AST 15 ALT 34 Alkaline Phosphatase 59 LD Total 452 H Total Protein 5.0 L Albumin 1.6 L Assessment/Plan Acute Hypoxic Respiratory Failure due to ARDS : Etiology to be determined Clinically and Radiographically suspected COVID19 Pneumonitis but PCR negative/Ab negative LV Diastolic Dysfunction Atrial Fibrillation HTN Hyperlipidemia - AC Mode of vent : LLTV strategy - Follow PPlat - ABX per ID - Follow final cultures - Continue AC - Strict I & O - Hold Lasix - Requires ICU monitoring Family discussions for GOC as his overall outcome for meaningful survival is poor : Recommend more comfort care measures : He is currently DNR Dr Gonzalez Critical care time spent in reviewing chart, evaluating patient and formulating plan - 36 minutes.
--- NOTE | 2019-10-08 14:37 | PN ---
Progress Note (short form) - Note Progress Note: Palliative care f/up remains intubated on pressors now DNR 78yo male with h/o HTN, hyperlipidemia, atrial fibrillation, LV diastolic dysfunction, CAD s/p CABG, angina, s/p bioprosthetic AVR with resection of LA appendage, hx of GI bleed with multiple recent admissions ( 08/31- 09/12, 09/19-09/21, 09/22- current) for hypoxia and suspected COVID19 ( tested negative multiple times) , o2 dependent. + depression/ anxiety, worsening debility currently in ICU I spoke to pt's son Shreyas today. He is aware of his dad's guarded prognosis given underlying comorbidities. Family have made him DNR. They are hoping and praying for a miracle. We discussed that Osito is on 90% o2 on the ventilator and on pressors to maintain his BP. We discussed withdrawal of care including discontinuing a/bs, pressors, compassionate extubation. We discussed what Osito's wishes would have been in this current situation given how unhappy he was when he was o2 dependent last month. Family would like to observe for any improvement - they are planning to visit him again today evening. Shreyas is also providing support to his Mother who is hopeful and praying for a miracle. He understands that those hopes might be unrealistic. I provided him reassurance that all supportive measures will continue for now but if family decides for withdrawal of care and comfort measures Osito will receive medications to keep him comfortable. Thanku for allowing me to participate in the care of this patient. Please call with questions. Obie Cruz MD [phone] Problem List - Problems (1) Acute on chronic diastolic (congestive) heart failure Code(s): I50.33 - ACUTE ON CHRONIC DIASTOLIC (CONGESTIVE) HEART FAILURE (2) Acute respiratory failure with hypoxia Code(s): J96.01 - ACUTE RESPIRATORY FAILURE WITH HYPOXIA (3) Atrial flutter Code(s): I48.92 - UNSPECIFIED ATRIAL FLUTTER Qualifiers: Atrial flutter type: typical Qualified Code(s): I48.3 - Typical atrial flutter (4) Depression Code(s): F32.9 - MAJOR DEPRESSIVE DISORDER, SINGLE EPISODE, UNSPECIFIED Qualifiers: Depression Type: other depression Qualified Code(s): F32.89 - Other specified depressive episodes (5) Failure to thrive in adult Code(s): R62.7 - ADULT FAILURE TO THRIVE (6) S/P AVR (aortic valve replacement) Code(s): Z95.2 - PRESENCE OF PROSTHETIC HEART VALVE (7) S/P left atrial appendage ligation Code(s): Z98.890 - OTHER SPECIFIED POSTPROCEDURAL STATES (8) Suspected COVID-19 virus infection Code(s): Z20.828 - CONTACT W AND EXPOSURE TO [facility] VIRAL COMMUNICABLE DISEASES
[2019-10-08] MEDS: ATORVASTATIN CA 40 MG TABLET (FP) PO SCH (22:25)
[2019-10-08] MEDS: CHLORHEXIDINE GLUCONATE 4% CLEANSER FOR DECOLONIZATION TP SCH (22:25)
[2019-10-09] MEDS ORDERED: DEXTROSE 5%-WATER - 50 ML IVPB ONE ×3 (02:07→19:16)
[2019-10-09] MEDS ORDERED: PIPERACILLIN/TAZOBACTAM 3.375 GM VIAL IVPB ONE ×3 (02:07→19:16)
[2019-10-09] MEDS: PIPERACILLIN/TAZOB 3.375 GM 3.375 GM in DEXTROSE 5%-WATER - 50 ML IVPB SCH ×3 (02:45→19:22)
[2019-10-09] MEDS: HYDROCORTISONE SOD SUCCINATE 100 MG/2 ML VIAL IVPB SCH ×2 (03:27→09:46)
[2019-10-09 07:06] LABS: HEMATOCRIT 23.2 % (35.4-49); HEMOGLOBIN 7.4 GM/dL (11.7-16.9); MCH 29.6 pg (25.7-33.7); MCHC 32.1 g/dl (32.0-35.9); MEAN CELL VOLUME 92.4 fl (80-96); MEAN PLT VOLUME 8.1 fl (7.5-11.1); PLATELET COUNT 139 K/MM3 (134-434); RBC 2.51 M/mm3 (4.00-5.60); RDW 17.1 % (11.9-15.9); WHITE BLOOD COUNT 10.9 K/mm3 (4.0-10.0)
[2019-10-09] MEDS: NOREPINEPHRINE NS PREMIX 16,000 MCG/500 ML BAG IVPB SCH (07:30)
[2019-10-09 07:32] LABS: ALBUMIN 1.6 g/dl (3.4-5.0); BILIRUBIN,TOTAL 0.8 mg/dL (0.2-1); BLOOD UREA NITROGEN 29.1 mg/dL (7-18); CALCIUM 7.5 mg/dL (8.5-10.1); CREATININE 0.9 mg/dL (0.55-1.3); MAGNESIUM 2.9 mg/dL (1.8-2.4); PHOSPHOROUS 2.4 mg/dL (2.5-4.9); POTASSIUM 4.6 mmol/L (3.5-5.1)
--- NOTE | 2019-10-09 08:36 | PN ---
Progress Note (short form) - Note Progress Note: Pulm/CCM SUBJECTIVE: Patient seen and examined in the ICU. Remains intubated ,deeply sedated. AC Mode of vent. Fio2 coming down PPlat: 23 on 6cc Improved compliance, no autopeep NE @ 5 mcq but MAP 70, will decrease slowly CXR:improved, Vital Signs Temp 99.6 F 10/09/19 06:00 Pulse 80 10/09/19 06:00 Resp 18 10/09/19 06:00 BP 123/60 10/09/19 06:00 Pulse Ox 100 10/09/19 06:00 Intake & Output 10/08/19 10/08/19 10/09/19 11:59 23:59 11:59 Intake Total 820 497 602 Output Total 700 600 500 Balance 120 -103 102 Weight 67.9 kg 66.5 kg Intake: IV 720 447 552 DIPRIVAN - 1,000,000 mcg 120 87 120 In 100 ml @ 5 MCG/KG/MIN 1.92 mls/hr IVPB TITR [facility] Rx#:[id number] LEVOPHED BAG - NS 16,000 240 91 120 mcg In 500 ml @ 5 MCG/MIN 9.375 mls/hr IVPB TITR [facility] Rx#:[id number] MIDAZOLAM 100MG/100ML-0.9 120 74 72 %NACL 100 mg In 100 ml @ 1 MG/HR 1 mls/hr IVPB TITR [facility] Rx#:[id number] SUBLIMAZE IVPB 500 mcg In 240 195 240 100 ml @ 50 MCG/HR 10 mls/hr IVPB TITR [facility] Rx#: [id number] IVPB 100 50 50 Output: Urine 700 600 500 Smiley 700 600 500 Other: Voiding Method Indwelling Catheter Indwelling Catheter Bowel Movement No No Weight Measurement Method Built in [facility] Active Medications Acetaminophen (Tylenol -) 650 mg PO Q6H PRN PRN Reason: FEVER Last Admin: 10/07/19 21:23 Dose: 650 mg Documented by: Albuterol Sulfate (Ventolin Hfa Inhaler -) 2 puff IH Q4H PRN PRN Reason: SHORT OF BREATH/WHEEZING Apixaban (Eliquis -) 5 mg PO BID [facility] Last Admin: 10/08/19 22:25 Dose: 5 mg Documented by: Atorvastatin Calcium (Lipitor -) 40 mg PO HS [facility] Last Admin: 10/08/19 22:25 Dose: 40 mg Documented by: Chlorhexidine Gluconate (Hibiclens For Decolonization -) 1 applic TP HS [facility] Last Admin: 10/08/19 22:25 Dose: 1 applic Documented by: Diltiazem HCl (Cardizem Cd -) 180 mg PO DAILY [facility] Fludrocortisone Acetate (Florinef -) 0.2 mg PO DAILY [facility] Last Admin: 10/08/19 09:27 Dose: 0.2 mg Documented by: Hydrocortisone Sodium Succinate (Solu-Cortef -) 50 mg IVPB Q6H-IV [facility] Last Admin: 10/09/19 03:27 Dose: 50 mg Documented by: Fentanyl (Sublimaze Ivpb) 500 mcg in 100 mls @ 10 mls/hr IVPB TITR [facility]; Protocol Last Titration: 10/08/19 19:00 Dose: 100 mcg/hr, 20 mls/hr Documented by: Midazolam HCl (Midazolam 100mg/100ml-0.9%Nacl) 100 mg in 100 mls @ 1 mls/hr IVPB TITR [facility]; Protocol Last Infusion: 10/08/19 19:00 Dose: 6 mg/hr, 6 mls/hr Documented by: Norepinephrine Bitartrate (Levophed Bag - Ns) 16,000 mcg in 500 mls @ 9.375 mls/hr IVPB TITR [facility]; Protocol Last Titration: 10/08/19 19:00 Dose: 5 mcg/min, 9.375 mls/hr Documented by: Piperacillin Sod/Tazobactam (Sod 3.375 gm/ Dextrose) 50 mls @ 100 mls/hr IVPB Q8H-IV [facility]; Protocol Last Admin: 10/09/19 02:45 Dose: 100 mls/hr Documented by: Vasopressin 40 units/ Sodium (Chloride) 100 mls @ 5 mls/hr IVPB ASDIR [facility]; Protocol Last Admin: 10/08/19 09:30 Dose: Not Given Documented by: Metoprolol Succinate (Toprol Xl -) 100 mg PO BID [facility] Mirtazapine (Remeron -) 15 mg PO HS [facility] Last Admin: 10/06/19 21:27 Dose: 15 mg Documented by: Mupirocin (Bactroban Ointment (For Decolonization) -) 1 applic NS BID [facility] Stop: 10/10/19 23:14 Last Admin: 10/08/19 22:25 Dose: 1 applic Documented by: Pantoprazole Sodium (Protonix Iv) 40 mg IVPUSH DAILY [facility] Last Admin: 10/08/19 09:31 Dose: 40 mg Documented by: Constitutional: Yes: Intubated and sedated Eyes: Yes: (-) Pallor , pinpoint HENT: Yes: WNL, + NGT Neck: Yes: WNL Cardiovascular: Yes: Pulse Irregular, S1, S2 Respiratory: Yes: Vented, bilateral Rales/rhonchi , no wheezs Gastrointestinal: Yes: Normal Bowel Sounds, Soft Extremities: Yes: WNL Edema: No Labs: Laboratory Results - last 24 hr 10/08/19 10/08/19 10/09/19 06:30 06:30 06:00 WBC 10.9 H RBC 2.51 L Hgb 7.4 L Hct 23.2 L MCV 92.4 MCH 29.6 MCHC 32.1 RDW 17.1 H Plt Count 139 MPV 8.1 Neutrophils % (Manual) 99.0 H Band Neutrophils % 0.0 Lymphocytes % (Manual) 0.0 L Monocytes % (Manual) 1 L Eosinophils % (Manual) 0.0 Basophils % (Manual) 0.0 Myelocytes % (Man) 0 Promyelocytes % (Man) 0 Blast Cells % (Manual) 0 Nucleated RBC % 0 Metamyelocytes 0 Hypochromia 0 Platelet Estimate Decreased Polychromasia 1+ Poikilocytosis 0 Anisocytosis 1+ Microcytosis 0 Macrocytosis 0 Fibrinogen > 500.0 H D-Dimer 601 H Sodium Potassium Chloride Carbon Dioxide Anion Gap BUN Creatinine Est GFR (CKD-EPI)AfAm Est GFR (CKD-EPI)NonAf Random Glucose Calcium Phosphorus Magnesium Total Bilirubin AST ALT Alkaline Phosphatase LD Total C-Reactive Protein Total Protein Albumin 10/09/19 10/09/19 06:00 06:00 WBC RBC Hgb Hct MCV MCH MCHC RDW Plt Count MPV Neutrophils % (Manual) Band Neutrophils % Lymphocytes % (Manual) Monocytes % (Manual) Eosinophils % (Manual) Basophils % (Manual) Myelocytes % (Man) Promyelocytes % (Man) Blast Cells % (Manual) Nucleated RBC % Metamyelocytes Hypochromia Platelet Estimate Polychromasia Poikilocytosis Anisocytosis Microcytosis Macrocytosis Fibrinogen D-Dimer Sodium 143 Potassium 4.6 Chloride 110 H Carbon Dioxide 28 Anion Gap 5 L BUN 29.1 H Creatinine 0.9 Est GFR (CKD-EPI)AfAm 95.15 Est GFR (CKD-EPI)NonAf 82.09 Random Glucose 146 H Calcium 7.5 L Phosphorus 2.4 L Magnesium 2.9 H Total Bilirubin 0.8 AST 15 ALT 28 Alkaline Phosphatase 56 LD Total 424 H C-Reactive Protein 12.2 H Total Protein 5.0 L Albumin 1.6 L Assessment/Plan Acute Hypoxic Respiratory Failure due to ARDS : Etiology to be determined Clinically and Radiographically suspected COVID19 Pneumonitis but PCR negative/Ab negative LV Diastolic Dysfunction Atrial Fibrillation HTN Hyperlipidemia - AC Mode of vent : LLTV strategy - Follow PPlat , goal < 25, maintain PEEP at 8 min, may uptitrate as compliance improves - ABX per ID - Follow final cultures - Continue AC - start TF - Strict I & O - Hold Lasix - Requires ICU monitoring Family discussions for GOC as his overall outcome for meaningful survival is poor : Recommend more comfort care measures : He is currently DNR , palcare following, note reviewed, family still hopefull Offerle ACNP 2655 37min CCT
[2019-10-09] MEDS: FENTANYL IVPB 500 MCG/100 ML BAG IVPB SCH ×2 (09:44→20:00)
[2019-10-09] MEDS: PANTOPRAZOLE SODIUM 40 MG VIAL IVPUSH SCH (09:55)
[2019-10-09] MEDS: FLUDROCORTISONE ACETATE 0.1 MG TABLET (FP) PO SCH (09:55)
[2019-10-09] MEDS: APIXABAN 5 MG TABLET PO SCH ×2 (09:56→21:26)
[2019-10-09] MEDS: VASOPRESSIN 40 UNITS in SODIUM CHLORIDE 98 ML IVPB SCH (09:57)
[2019-10-09] MEDS: MIDAZOLAM IN 0.9 % SOD.CHLORID 100 MG/100 ML PLAST..BAG IVPB SCH (09:58)
--- NOTE | 2019-10-09 10:00 | PN ---
Progress Note (short form) - Note Progress Note: sedated remains intubated on pressors Vital Signs - 24 hr 10/08/19 10/08/19 10/08/19 11:58 12:00 12:11 Temperature 98.6 F Pulse Rate 69 Respiratory 18 18 Rate Blood Pressure 102/55 L O2 Sat by Pulse 100 100 99 Oximetry (%) 10/08/19 10/08/19 10/08/19 14:00 15:55 16:00 Temperature 99.7 F H Pulse Rate 72 73 Respiratory 18 18 18 Rate Blood Pressure 100/55 L 119/55 L O2 Sat by Pulse 100 100 100 Oximetry (%) 10/08/19 10/08/19 10/08/19 16:02 19:00 21:00 Temperature 100.0 F H Pulse Rate 72 78 Respiratory 18 Rate Blood Pressure 118/57 L O2 Sat by Pulse 100 100 100 Oximetry (%) 10/08/19 10/08/19 10/08/19 21:12 22:00 23:00 Temperature 100.0 F H 100.0 F H Pulse Rate 78 79 Respiratory 18 18 18 Rate Blood Pressure 113/61 111/55 L O2 Sat by Pulse 100 100 100 Oximetry (%) 10/09/19 10/09/19 10/09/19 00:00 00:36 01:00 Temperature 100.0 F H 100.1 F H Pulse Rate 77 77 Respiratory 18 18 18 Rate Blood Pressure 107/52 L 112/57 L O2 Sat by Pulse 100 100 100 Oximetry (%) 10/09/19 10/09/19 10/09/19 02:00 03:00 04:00 Temperature 100.1 F H 100.1 F H 99.6 F Pulse Rate 75 78 78 Respiratory 18 18 18 Rate Blood Pressure 115/53 L 115/54 L 116/58 L O2 Sat by Pulse 100 100 100 Oximetry (%) 10/09/19 10/09/19 10/09/19 04:45 06:00 08:44 Temperature 99.6 F Pulse Rate 80 82 Respiratory 18 18 18 Rate Blood Pressure 123/60 O2 Sat by Pulse 100 100 100 Oximetry (%) Current Medications Generic Name Dose Route Start Last Admin Trade Name Freq PRN Reason Stop Dose Admin Acetaminophen 650 mg 10/06/19 00:25 10/07/19 21:23 Tylenol - PO 650 mg Q6H PRN Administration FEVER Albuterol Sulfate 2 puff 10/06/19 00:25 Ventolin Hfa Inhaler - IH Q4H PRN SHORT OF BREATH/WHEEZING Apixaban 5 mg 10/06/19 10:00 10/09/19 09:56 Eliquis - PO 5 mg BID [facility] Administration Atorvastatin Calcium 40 mg 10/06/19 22:00 10/08/19 22:25 Lipitor - PO 40 mg HS [facility] Administration Chlorhexidine Gluconate 1 applic 10/06/19 22:00 10/08/19 22:25 Hibiclens For Decolonization - TP 1 applic HS [facility] Administration Diltiazem HCl 180 mg 10/06/19 10:00 Cardizem Cd - PO DAILY [facility] Fludrocortisone Acetate 0.2 mg 10/06/19 11:15 10/09/19 09:55 Florinef - PO 0.2 mg DAILY [facility] Administration Hydrocortisone Sodium Succinate 50 mg 10/09/19 09:26 Solu-Cortef - IVPUSH Q6H-IV [facility] Fentanyl 500 mcg in 100 mls @ 10 mls/hr 10/06/19 00:45 10/09/19 09:44 Sublimaze Ivpb IVPB 100 mcg/hr TITR [facility] 20 mls/hr Administration Protocol 50 MCG/HR Midazolam HCl 100 mg in 100 mls @ 1 mls/hr 10/06/19 00:45 10/09/19 09:58 Midazolam 100mg/100ml-0.9%Nacl IVPB 6 mg/hr TITR [facility] 6 mls/hr Administration Protocol 1 MG/HR Norepinephrine Bitartrate 16,000 mcg in 500 mls @ 9.375 mls/hr 10/06/19 07:45 10/09/19 07:30 Levophed Bag - Ns IVPB 5 mcg/min TITR [facility] 9.375 mls/hr Administration Protocol 5 MCG/MIN Piperacillin Sod/Tazobactam 50 mls @ 100 mls/hr 10/06/19 08:45 10/09/19 09:57 Sod 3.375 gm/ Dextrose IVPB 100 mls/hr Q8H-IV [facility] Administration Protocol Vasopressin 40 units/ Sodium 100 mls @ 5 mls/hr 10/06/19 09:15 10/09/19 09:57 Chloride IVPB Not Given ASDIR [facility] Protocol 2 UNITS/HR Metoprolol Succinate 100 mg 10/06/19 10:00 Toprol Xl - PO BID [facility] Mirtazapine 15 mg 10/06/19 22:00 10/06/19 21:27 Remeron - PO 15 mg HS [facility] Administration Mupirocin 1 applic 10/05/19 23:15 10/08/19 22:25 Bactroban Ointment (For Decolonization) - NS 10/10/19 23:14 1 applic BID [facility] Administration Pantoprazole Sodium 40 mg 10/06/19 11:15 10/09/19 09:55 Protonix Iv IVPUSH 40 mg DAILY [facility] Administration Laboratory Results - last 24 hr 10/09/19 10/09/19 10/09/19 06:00 06:00 06:00 WBC 10.9 H RBC 2.51 L Hgb 7.4 L Hct 23.2 L MCV 92.4 MCH 29.6 MCHC 32.1 RDW 17.1 H Plt Count 139 MPV 8.1 Sodium 143 Potassium 4.6 Chloride 110 H Carbon Dioxide 28 Anion Gap 5 L BUN 29.1 H Creatinine 0.9 Est GFR (CKD-EPI)AfAm 95.15 Est GFR (CKD-EPI)NonAf 82.09 Random Glucose 146 H Calcium 7.5 L Phosphorus 2.4 L Magnesium 2.9 H Total Bilirubin 0.8 AST 15 ALT 28 Alkaline Phosphatase 56 LD Total 424 H C-Reactive Protein 12.2 H Total Protein 5.0 L Albumin 1.6 L S1 S2 Irregular Lungs decreased breath sounds Abd- soft, NT No edema A/P acute respiratory failure Fever, pneumonitis CHF decompensation Aflutter -- COVID negative -- on stress steroids -- ICU management --s/p cardioversion -- rate control -- continue with meds --broad spectrum antibiotics -- prognosis is poor -- on pressor support -- clinically not improving Problem List - Problems (1) Acute on chronic diastolic (congestive) heart failure Code(s): I50.33 - ACUTE ON CHRONIC DIASTOLIC (CONGESTIVE) HEART FAILURE (2) Acute respiratory failure with hypoxia Code(s): J96.01 - ACUTE RESPIRATORY FAILURE WITH HYPOXIA (3) Atrial fibrillation Code(s): I48.91 - UNSPECIFIED ATRIAL FIBRILLATION (4) GERD (gastroesophageal reflux disease) Code(s): K21.9 - GASTRO-ESOPHAGEAL REFLUX DISEASE WITHOUT ESOPHAGITIS (5) HTN (hypertension) Code(s): I10 - ESSENTIAL (PRIMARY) HYPERTENSION Qualifiers: Hypertension type: essential hypertension Qualified Code(s): I10 - Essential (primary) hypertension (6) Suspected 2019 novel coronavirus infection Code(s): Z20.828 - CONTACT W AND EXPOSURE TO [facility] VIRAL COMMUNICABLE DISEASES
[2019-10-09] MEDS: MUPIROCIN 2% TOPICAL OINTMENT FOR DECOLONIZATION NS SCH ×2 (10:11→22:00)
--- NOTE | 2019-10-09 12:13 | PN ---
Progress Note, Physician History of Present Illness: Sedated and intubated on pressors via RIJ for acute on chronic hypoxic respiratory failure. Remains in NSR post DCCV. - Current Medication List Current Medications: Active Medications Acetaminophen (Tylenol -) 650 mg PO Q6H PRN PRN Reason: FEVER Last Admin: 10/07/19 21:23 Dose: 650 mg Documented by: Albuterol Sulfate (Ventolin Hfa Inhaler -) 2 puff IH Q4H PRN PRN Reason: SHORT OF BREATH/WHEEZING Apixaban (Eliquis -) 5 mg PO BID [facility] Last Admin: 10/09/19 09:56 Dose: 5 mg Documented by: Atorvastatin Calcium (Lipitor -) 40 mg PO HS [facility] Last Admin: 10/08/19 22:25 Dose: 40 mg Documented by: Chlorhexidine Gluconate (Hibiclens For Decolonization -) 1 applic TP [facility] Last Admin: 10/08/19 22:25 Dose: 1 applic Documented by: Diltiazem HCl (Cardizem Cd -) 180 mg PO DAILY [facility] Fludrocortisone Acetate (Florinef -) 0.2 mg PO DAILY [facility] Last Admin: 10/09/19 09:55 Dose: 0.2 mg Documented by: Hydrocortisone Sodium Succinate (Solu-Cortef -) 50 mg IVPUSH Q6H-IV [facility] Fentanyl (Sublimaze Ivpb) 500 mcg in 100 mls @ 10 mls/hr IVPB TITR [facility]; Protocol Last Admin: 10/09/19 09:44 Dose: 100 mcg/hr, 20 mls/hr Documented by: Midazolam HCl (Midazolam 100mg/100ml-0.9%Nacl) 100 mg in 100 mls @ 1 mls/hr IVPB TITR [facility]; Protocol Last Admin: 10/09/19 09:58 Dose: 6 mg/hr, 6 mls/hr Documented by: Norepinephrine Bitartrate (Levophed Bag - Ns) 16,000 mcg in 500 mls @ 9.375 mls/hr IVPB TITR [facility]; Protocol Last Admin: 10/09/19 07:30 Dose: 5 mcg/min, 9.375 mls/hr Documented by: Piperacillin Sod/Tazobactam (Sod 3.375 gm/ Dextrose) 50 mls @ 100 mls/hr IVPB Q8H-IV [facility]; Protocol Last Admin: 10/09/19 09:57 Dose: 100 mls/hr Documented by: Vasopressin 40 units/ Sodium (Chloride) 100 mls @ 5 mls/hr IVPB ASDIR [facility]; Protocol Last Admin: 10/09/19 09:57 Dose: Not Given Documented by: Metoprolol Succinate (Toprol Xl -) 100 mg PO BID [facility] Mirtazapine (Remeron -) 15 mg PO HS [facility] Last Admin: 10/06/19 21:27 Dose: 15 mg Documented by: Mupirocin (Bactroban Ointment (For Decolonization) -) 1 applic NS BID [facility] Stop: 10/10/19 23:14 Last Admin: 10/09/19 10:11 Dose: 1 applic Documented by: Pantoprazole Sodium (Protonix Iv) 40 mg IVPUSH DAILY [facility] Last Admin: 10/09/19 09:55 Dose: 40 mg Documented by: - Objective Vital Signs: Vital Signs Temperature 99.6 F 10/09/19 06:00 Pulse Rate 82 10/09/19 08:44 Respiratory Rate 18 10/09/19 12:10 Blood Pressure 123/60 10/09/19 06:00 O2 Sat by Pulse Oximetry (%) 100 10/09/19 12:10 Constitutional: Yes: Other (Sedated and intubated) Cardiovascular: Yes: Regular Rate and Rhythm Respiratory: Yes: Intubated, Mechanically Ventilated Gastrointestinal: Yes: Soft, Hypoactive Bowel Sounds Genitourinary: Yes: Smiley Present Edema: No Labs: CBC, BMP 10/09/19 06:00 10/09/19 06:00 INR, PTT INR 1.97 (0.83-1.09) H 09/23/19 18:40 Fibrinogen > 500.0 mg/dL (238-498) H 10/08/19 06:30 - ....Imaging Chest X-ray: Report Reviewed (Bilateral infitrates and effusion) EKG: Report Reviewed (Tele: NSR no PAF) Problem List - Problems (1) Acute on chronic diastolic (congestive) heart failure Code(s): I50.33 - ACUTE ON CHRONIC DIASTOLIC (CONGESTIVE) HEART FAILURE (2) Acute respiratory failure with hypoxia Code(s): J96.01 - ACUTE RESPIRATORY FAILURE WITH HYPOXIA (3) Aortic valve stenosis Code(s): I35.0 - NONRHEUMATIC AORTIC (VALVE) STENOSIS Qualifiers: Cardiac valve disease etiology: nonrheumatic Qualified Code(s): I35.0 - Nonrheumatic aortic (valve) stenosis (4) Atrial flutter Code(s): I48.92 - UNSPECIFIED ATRIAL FLUTTER Qualifiers: Atrial flutter type: typical Qualified Code(s): I48.3 - Typical atrial flutter (5) CAD (coronary artery disease) Code(s): I25.10 - ATHSCL HEART DISEASE OF [place] CORONARY ARTERY W/O ANG PCTRS Qualifiers: Coronary Disease-Associated Artery/Lesion type: [place] artery [place] vs. transplanted heart: [place] heart Associated angina: without angina Qualified Code(s): I25.10 - Atherosclerotic heart disease of [place] coronary artery without angina pectoris (6) HTN (hypertension) Code(s): I10 - ESSENTIAL (PRIMARY) HYPERTENSION Qualifiers: Hypertension type: essential hypertension Qualified Code(s): I10 - Essential (primary) hypertension (7) Hx of CABG Code(s): Z95.1 - PRESENCE OF AORTOCORONARY BYPASS GRAFT (8) Hypercholesterolemia Code(s): E78.00 - PURE HYPERCHOLESTEROLEMIA, UNSPECIFIED (9) S/P AVR (aortic valve replacement) Code(s): Z95.2 - PRESENCE OF PROSTHETIC HEART VALVE (10) S/P left atrial appendage ligation Code(s): Z98.890 - OTHER SPECIFIED POSTPROCEDURAL STATES (11) Suspected COVID-19 virus infection Code(s): Z20.828 - CONTACT W AND EXPOSURE TO [facility] VIRAL COMMUNICABLE DISEASES Assessment/Plan Echo 09/03/2019 Post-op septal motion, normal LVEF 50-55%, mod cLVH, normal RV size and fxn, mild LAE, mild MR, TR, bioAVR, mild AR, restrictive physiology Echocardiography October 12, 2018 revealed mild degree of concentric left ventricular hypertrophy with normal left ventricular systolic function and estimated LVEF between 65-70%, mild left atrial dilatation, normal right ventricular size and systolic function, aortic valve bioprosthesis with no aortic valve insufficiency, moderately dilated ascending aorta, mild thickening of the mitral valve leaflets with mild mitral valve regurgitation, mild to moderate tricuspid valve regurgitation with calculated RVSP of [address]: Small-moderate right and very small left effusion, pulm edema TAA 3.9 cm 1. Recurrent acute hypoxic respiratory failure related to bronchopneumonia with probable sepsis syndrome, coronavirus/COVID 19- residual infiltrates 2. Clinical presentation is consistent with chronic class I-II NYHA classification LV diastolic heart failure, no evidence of acute decompensation- as outlined in the prior notes chest x-ray findings related to patient's recent coronavirus/COVID 19 pneumonitis- elevated BNP level related to patient's chronic heart failure syndrome and persistence of atrial arrhythmia/atrial flutter 3. Paroxysmal atrial flutter with periods rapid ventricular response now in SR post DCCV [id number] score of 5 on DOAC's/Eliquis 4. CAD post CABG with evidence of demand ischemia related to the above-noted clinical presentation angina pectoris 5. Aortic valve stenosis post SAVR/bio-prosthesis- with LA appendage ligation 6. Hypertensive cardiovascular disease 7. Hypercholesterolemia 8. History of altered mental status etiology of which was unclear- prior history of clinical depression 9. History of bacteremia- endocarditis unlikely 10. Anemia PLAN: 1. Wean Levophed for MAP>65 mmHg 2. Wean FIO2 and PEEP to maintain saO2, BD, IV steroids with GI protection, empiric abx course, start enteral feeds 3. Start sotalol 80 bid pending hemodynamic stability 4. Continue Atorvastatin 40 qd, Eliquis 5 bid 5. Holding off diuresis monitoring of volume status, renal function and electrolytes 6. DNR per HCP
[2019-10-09] MEDS ORDERED: FENTANYL NS IVPB 500 MCG/100 ML BAG IVPB ONE (15:17)
[2019-10-09] MEDS: HYDROCORTISONE SOD SUCCINATE 100 MG/2 ML VIAL IVPUSH SCH ×2 (15:25→21:26)
[2019-10-09] MEDS: CHLORHEXIDINE GLUCONATE 4% CLEANSER FOR DECOLONIZATION TP SCH (21:26)
[2019-10-09] MEDS: ATORVASTATIN CA 40 MG TABLET (FP) PO SCH (21:26)
[2019-10-09] MEDS ORDERED: RAPID SEQUENCE INTUBATION KIT NR ONE (22:00)
[2019-10-10] MEDS: FENTANYL IVPB 500 MCG/100 ML BAG IVPB SCH (01:00)
[2019-10-10] MEDS ORDERED: DEXTROSE 5%-WATER - 50 ML IVPB ONE ×3 (02:46→16:36)
[2019-10-10] MEDS ORDERED: PIPERACILLIN/TAZOBACTAM 3.375 GM VIAL IVPB ONE ×3 (02:46→16:36)
[2019-10-10] MEDS: PIPERACILLIN/TAZOB 3.375 GM 3.375 GM in DEXTROSE 5%-WATER - 50 ML IVPB SCH ×3 (02:48→17:07)
[2019-10-10] MEDS: HYDROCORTISONE SOD SUCCINATE 100 MG/2 ML VIAL IVPUSH SCH ×4 (02:48→21:10)
[2019-10-10] MEDS: MIDAZOLAM IN 0.9 % SOD.CHLORID 100 MG/100 ML PLAST..BAG IVPB SCH (04:08)
[2019-10-10 06:45] LABS: HEMOGLOBIN 7.4 GM/dL (11.7-16.9); MCH 29.5 pg (25.7-33.7); MCHC 32.1 g/dl (32.0-35.9); MEAN CELL VOLUME 91.8 fl (80-96); MEAN PLT VOLUME 7.8 fl (7.5-11.1); PLATELET COUNT 124 K/MM3 (134-434); RDW 16.6 % (11.9-15.9); WHITE BLOOD COUNT 8.3 K/mm3 (4.0-10.0)
[2019-10-10 07:05] LABS: ALBUMIN 1.6 g/dl (3.4-5.0); BLOOD UREA NITROGEN 39.3 mg/dL (7-18); CALCIUM 7.4 mg/dL (8.5-10.1); POTASSIUM 4.8 mmol/L (3.5-5.1)
[2019-10-10] MEDS ORDERED: METOPROLOL TARTRATE 5 MG/5 ML VIAL ONE (07:13)
[2019-10-10 07:15] LABS: TOT PROT 5.2 g/dl (6.4-8.2)
[2019-10-10] MEDS ORDERED: METOPROLOL TARTRATE 5 MG/5 ML VIAL IVPUSH ONE ×2 (07:18→11:58)
[2019-10-10] MEDS: NOREPINEPHRINE NS PREMIX 16,000 MCG/500 ML BAG IVPB SCH (07:30)
--- NOTE | 2019-10-10 08:20 | PN ---
Progress Note (short form) - Note Progress Note: Pulm/CCM Patient seen and examined in the ICU. Remains intubated, titrating sedation, Vent: AC mode 450/18/70%/+8 NE @ 3 mcq but MAP 70, will decrease slowly Sedated on Versed and Fentanyl, RASS-3 Vital Signs Period Temp Pulse Resp BP Sys/Amador Pulse Ox Last 24 Hr 99.9 F-100.9 F 85-142 15-26 106-135/48-72 95-100 ABG Results ABG pH 7.393 (7.350-7.450) 10/10/19 08:40 ABG HCO3 26.0 mmol/L (22-27) 10/10/19 08:40 ABG O2 Sat (Measured) 98.6 mmHg (95-98) H 10/10/19 08:40 ABG O2 Content No Result Required. 10/10/19 08:40 ABG Base Excess 0.9 mmol/L (-2-2) 10/10/19 08:40 Intake & Output 10/07/19 10/08/19 10/09/19 10/10/19 23:59 23:59 23:59 23:59 Intake Total 1885.6 1317 1301.4 1166.2 Output Total 1000 1300 1100 850 Balance 885.6 17 201.4 316.2 Weight 64.6 kg 67.9 kg 66.5 kg 66.5 kg Active Medications Acetaminophen (Tylenol -) 650 mg PO Q6H PRN PRN Reason: FEVER Last Admin: 10/07/19 21:23 Dose: 650 mg Documented by: Albuterol Sulfate (Ventolin Hfa Inhaler -) 2 puff IH Q4H PRN PRN Reason: SHORT OF BREATH/WHEEZING Apixaban (Eliquis -) 5 mg PO BID [facility] Last Admin: 10/10/19 09:21 Dose: 5 mg Documented by: Atorvastatin Calcium (Lipitor -) [address] [facility] Last Admin: 10/09/19 21:26 Dose: 40 mg Documented by: Chlorhexidine Gluconate (Hibiclens For Decolonization -) [address] [facility] Last Admin: 10/09/19 21:26 Dose: 1 applic Documented by: Diltiazem HCl (Cardizem -) 60 mg PO TID [facility] Last Admin: 10/10/19 16:39 Dose: 60 mg Documented by: Fludrocortisone Acetate (Florinef -) 0.2 mg PO DAILY [facility] Last Admin: 10/10/19 09:21 Dose: 0.2 mg Documented by: Hydrocortisone Sodium Succinate (Solu-Cortef -) 50 mg IVPUSH Q6H-IV [facility] Last Admin: 10/10/19 16:38 Dose: 50 mg Documented by: Fentanyl (Sublimaze Ivpb) 500 mcg in 100 mls @ 10 mls/hr IVPB TITR [facility]; Protocol Last Admin: 10/10/19 01:00 Dose: 100 mcg/hr, 20 mls/hr Documented by: Midazolam HCl (Midazolam 100mg/100ml-0.9%Nacl) 100 mg in 100 mls @ 1 mls/hr IVPB TITR [facility]; Protocol Last Infusion: 10/10/19 17:00 Dose: 2 mg/hr, 2 mls/hr Documented by: Norepinephrine Bitartrate (Levophed Bag - Ns) 16,000 mcg in 500 mls @ 9.375 mls/hr IVPB TITR [facility]; Protocol Last Titration: 10/10/19 11:00 Dose: 0 mcg/min, 0 mls/hr Documented by: Piperacillin Sod/Tazobactam (Sod 3.375 gm/ Dextrose) 50 mls @ 100 mls/hr IVPB Q8H-IV [facility]; Protocol Last Admin: 10/10/19 17:07 Dose: 100 mls/hr Documented by: Vasopressin 40 units/ Sodium (Chloride) 100 mls @ 5 mls/hr IVPB [facility]; Protocol Last Admin: 10/10/19 10:23 Dose: Not Given Documented by: Metoprolol Tartrate (Lopressor Injection -) 2.5 mg IVPUSH Q4H PRN PRN Reason: HYPERTENSION Last Admin: 10/10/19 17:16 Dose: 2.5 mg Documented by: Mirtazapine (Remeron -) 15 mg PO HS [facility] Last Admin: 10/06/19 21:27 Dose: 15 mg Documented by: Mupirocin (Bactroban Ointment (For Decolonization) -) 1 applic NS BID [facility] Stop: 10/10/19 23:14 Last Admin: 10/10/19 10:22 Dose: 1 applic Documented by: Pantoprazole Sodium (Protonix Iv) 40 mg IVPUSH DAILY [facility] Last Admin: 10/10/19 09:37 Dose: 40 mg Documented by: Constitutional: Yes: Intubated and sedated Eyes: Yes: (-) Pallor , pinpoint HENT: Yes: WNL, + NGT Neck: Yes: WNL Cardiovascular: Yes: Pulse Irregular, S1, S2 Respiratory: Yes: Vented, bilateral Rales/rhonchi , no wheezs Gastrointestinal: Yes: Normal Bowel Sounds, Soft Extremities: Yes: WNL Edema: No Labs: CBC, BMP 10/10/19 05:45 10/10/19 05:45 A/ Acute Hypoxic Respiratory Failure due to ARDS : Etiology to be determined Clinically and Radiographically suspected COVID19 Pneumonitis but PCR negative/Ab negative LV Diastolic Dysfunction Atrial Fibrillation HTN Hyperlipidemia - AC Mode of vent : LLTV strategy - Follow PPlat , goal < 25, maintain PEEP at 8 min, may uptitrate as compliance improves - Continue Zosyn - Follow final cultures - Stress dose steroids - Continue AC (Apixaban 5 mg) - Start Cardizem 60 mg q 8 hours via NGT for AFIB RVR - Metoprolol IVP 2.5 mg q 4 hours - Continue TF - Strict I & O - Hold Lasix - Transfuse for Hgb <7, Plt<10 - Requires ICU monitoring Dispo: patient is DNR Rayne Lopez ACNP 2245
[2019-10-10] MEDS ORDERED: dilTIAZem HCL 60 MG TABLET PO ONE (09:18)
[2019-10-10 09:20] LABS: ARTERIAL BLD GAS O2 SATURATION 98.6 mmHg (95-98); ARTERIAL BLOOD GAS BASE EXCESS 0.9 mmol/L (-2-2); ARTERIAL BLOOD GAS PO2 130.9 mmHg (80-100); ARTERIAL BLOOD GAS pH 7.393 (7.350-7.450)
[2019-10-10] MEDS: APIXABAN 5 MG TABLET PO SCH ×2 (09:21→21:10)
[2019-10-10] MEDS: FLUDROCORTISONE ACETATE 0.1 MG TABLET (FP) PO SCH (09:21)
[2019-10-10 09:22] LABS: ALLENS TEST POSITIVE; VENT MODE A/C; VENT RATE 18
[2019-10-10] MEDS: PANTOPRAZOLE SODIUM 40 MG VIAL IVPUSH SCH (09:37)
[2019-10-10] MEDS: METOPROLOL TARTRATE 5 MG/5 ML VIAL IVPUSH PRN ×2 (10:15→17:16)
[2019-10-10] MEDS: MUPIROCIN 2% TOPICAL OINTMENT FOR DECOLONIZATION NS SCH ×2 (10:22→21:10)
[2019-10-10] MEDS: VASOPRESSIN 40 UNITS in SODIUM CHLORIDE 98 ML IVPB SCH (10:23)
--- NOTE | 2019-10-10 12:27 | PN ---
Progress Note, Physician History of Present Illness: Sedated and intubated on pressors via RIJ for acute on chronic hypoxic respiratory failure. Remains in NSR post DCCV. - Current Medication List Current Medications: Active Medications Acetaminophen (Tylenol -) 650 mg PO Q6H PRN PRN Reason: FEVER Last Admin: 10/07/19 21:23 Dose: 650 mg Documented by: Albuterol Sulfate (Ventolin Hfa Inhaler -) 2 puff IH Q4H PRN PRN Reason: SHORT OF BREATH/WHEEZING Apixaban (Eliquis -) 5 mg PO BID [facility] Last Admin: 10/10/19 09:21 Dose: 5 mg Documented by: Atorvastatin Calcium (Lipitor -) 40 mg PO HS [facility] Last Admin: 10/09/19 21:26 Dose: 40 mg Documented by: Chlorhexidine Gluconate (Hibiclens For Decolonization -) 1 applic TP [facility] Last Admin: 10/09/19 21:26 Dose: 1 applic Documented by: Diltiazem HCl (Cardizem -) 60 mg PO TID [facility] Fludrocortisone Acetate (Florinef -) 0.2 mg PO DAILY [facility] Last Admin: 10/10/19 09:21 Dose: 0.2 mg Documented by: Hydrocortisone Sodium Succinate (Solu-Cortef -) 50 mg IVPUSH Q6H-IV [facility] Last Admin: 10/10/19 09:16 Dose: 50 mg Documented by: Fentanyl (Sublimaze Ivpb) 500 mcg in 100 mls @ 10 mls/hr IVPB TITR [facility]; Protocol Last Admin: 10/10/19 01:00 Dose: 100 mcg/hr, 20 mls/hr Documented by: Midazolam HCl (Midazolam 100mg/100ml-0.9%Nacl) 100 mg in 100 mls @ 1 mls/hr IVPB TITR [facility]; Protocol Last Infusion: 10/10/19 10:00 Dose: 4 mg/hr, 4 mls/hr Documented by: Norepinephrine Bitartrate (Levophed Bag - Ns) 16,000 mcg in 500 mls @ 9.375 mls /hr IVPB TITR [facility]; Protocol Last Admin: 10/10/19 07:30 Dose: 3 mcg/min, 5.625 mls/hr Documented by: Piperacillin Sod/Tazobactam (Sod 3.375 gm/ Dextrose) 50 mls @ 100 mls/hr IVPB Q8H-IV [facility]; Protocol Last Admin: 10/10/19 09:37 Dose: 100 mls/hr Documented by: Vasopressin 40 units/ Sodium (Chloride) 100 mls @ 5 mls/hr IVPB ASDIR [facility]; Protocol Last Admin: 10/10/19 10:23 Dose: Not Given Documented by: Metoprolol Tartrate (Lopressor Injection -) 2.5 mg IVPUSH Q4H PRN PRN Reason: HYPERTENSION Last Admin: 10/10/19 10:15 Dose: 2.5 mg Documented by: Mirtazapine (Remeron -) 15 mg PO HS [facility] Last Admin: 10/06/19 21:27 Dose: 15 mg Documented by: Mupirocin (Bactroban Ointment (For Decolonization) -) 1 applic NS BID [facility] Stop: 10/10/19 23:14 Last Admin: 10/10/19 10:22 Dose: 1 applic Documented by: Pantoprazole Sodium (Protonix Iv) 40 mg IVPUSH DAILY [facility] Last Admin: 10/10/19 09:37 Dose: 40 mg Documented by: - Objective Vital Signs: Vital Signs Temperature 100.4 F H 10/10/19 06:00 Pulse Rate 142 H 10/10/19 10:15 Respiratory Rate 18 10/10/19 11:54 Blood Pressure 135/72 10/10/19 10:15 O2 Sat by Pulse Oximetry (%) 99 10/10/19 11:54 Constitutional: Yes: Other (Sedated and intubated) Cardiovascular: Yes: Regular Rate and Rhythm Respiratory: Yes: Intubated, Mechanically Ventilated, Rhonchi Gastrointestinal: Yes: Normal Bowel Sounds, Soft Genitourinary: Yes: Smiley Present Edema: No Labs: CBC, BMP 10/10/19 05:45 10/10/19 05:45 INR, PTT INR 1.97 (0.83-1.09) H 09/23/19 18:40 Fibrinogen > 500.0 mg/dL (238-498) H 10/08/19 06:30 - ....Imaging EKG: Report Reviewed (Tele: NSR) Problem List - Problems (1) Acute on chronic diastolic (congestive) heart failure Code(s): I50.33 - ACUTE ON CHRONIC DIASTOLIC (CONGESTIVE) HEART FAILURE (2) Acute respiratory failure with hypoxia Code(s): J96.01 - ACUTE RESPIRATORY FAILURE WITH HYPOXIA (3) Aortic valve stenosis Code(s): I35.0 - NONRHEUMATIC AORTIC (VALVE) STENOSIS Qualifiers: Cardiac valve disease etiology: nonrheumatic Qualified Code(s): I35.0 - Nonrheumatic aortic (valve) stenosis (4) Atrial flutter Code(s): I48.92 - UNSPECIFIED ATRIAL FLUTTER Qualifiers: Atrial flutter type: typical Qualified Code(s): I48.3 - Typical atrial flutter (5) CAD (coronary artery disease) Code(s): I25.10 - ATHSCL HEART DISEASE OF [place] CORONARY ARTERY W/O ANG PCTRS Qualifiers: Coronary Disease-Associated Artery/Lesion type: [place] artery [place] vs. transplanted heart: [place] heart Associated angina: without angina Qualified Code(s): I25.10 - Atherosclerotic heart disease of [place] coronary artery without angina pectoris (6) HTN (hypertension) Code(s): I10 - ESSENTIAL (PRIMARY) HYPERTENSION Qualifiers: Hypertension type: essential hypertension Qualified Code(s): I10 - Essential (primary) hypertension (7) Hx of CABG Code(s): Z95.1 - PRESENCE OF AORTOCORONARY BYPASS GRAFT (8) Hypercholesterolemia Code(s): E78.00 - PURE HYPERCHOLESTEROLEMIA, UNSPECIFIED (9) S/P AVR (aortic valve replacement) Code(s): Z95.2 - PRESENCE OF PROSTHETIC HEART VALVE (10) S/P left atrial appendage ligation Code(s): Z98.890 - OTHER SPECIFIED POSTPROCEDURAL STATES (11) Suspected COVID-19 virus infection Code(s): Z20.828 - CONTACT W AND EXPOSURE TO [facility] VIRAL COMMUNICABLE DISEASES Assessment/Plan Echo 09/03/2019 Post-op septal motion, normal LVEF 50-55%, mod cLVH, normal RV size and fxn, mild LAE, mild MR, TR, bioAVR, mild AR, restrictive physiology Echocardiography October 12, 2018 revealed mild degree of concentric left ventricular hypertrophy with normal left ventricular systolic function and estimated LVEF between 65-70%, mild left atrial dilatation, normal right ventricular size and systolic function, aortic valve bioprosthesis with no aortic valve insufficiency, moderately dilated ascending aorta, mild thickening of the mitral valve leaflets with mild mitral valve regurgitation, mild to moderate tricuspid valve regurgitation with calculated RVSP of [address]: Small-moderate right and very small left effusion, pulm edema TAA 3.9 cm 1. Recurrent acute hypoxic respiratory failure related to bronchopneumonia with probable sepsis syndrome, coronavirus/COVID 19- residual infiltrates 2. Clinical presentation is consistent with chronic class I-II NYHA classification LV diastolic heart failure, no evidence of acute decompensation- as outlined in the prior notes chest x-ray findings related to patient's recent coronavirus/COVID 19 pneumonitis- elevated BNP level related to patient's chronic heart failure syndrome and persistence of atrial arrhythmia/atrial flutter 3. Paroxysmal atrial flutter with periods rapid ventricular response now in SR post DCCV [id number] score of 5 on DOAC's/Eliquis 4. CAD post CABG with evidence of demand ischemia related to the above-noted clinical presentation angina pectoris 5. Aortic valve stenosis post SAVR/bio-prosthesis- with LA appendage ligation 6. Hypertensive cardiovascular disease 7. Hypercholesterolemia 8. History of altered mental status etiology of which was unclear- prior history of clinical depression 9. History of bacteremia- endocarditis unlikely 10. Anemia PLAN: 1. Wean Levophed for MAP>65 mmHg, on Fluorinef 0.2 qd 2. Wean FIO2 and PEEP to maintain saO2, BD, IV steroids with GI protection, empiric abx course, start enteral feeds 3. Start sotalol 80 bid with QTc check pending hemodynamic stability, on Lopressor 2.5 IVq4 prn 4. Continue Atorvastatin 40 qd, Eliquis 5 bid 5. Holding off diuresis monitoring of volume status, renal function and electrolytes 6. DNR per HCP
--- NOTE | 2019-10-10 13:46 | PN ---
Progress Note (short form) - Note Progress Note: sedated remains intubated on pressors vitals noted Low-grade temps Laboratory Results - last 24 hr 10/09/19 10/09/19 10/09/19 06:00 06:00 06:00 WBC 10.9 H RBC 2.51 L Hgb 7.4 L Hct 23.2 L MCV 92.4 MCH 29.6 MCHC 32.1 RDW 17.1 H Plt Count 139 MPV 8.1 Sodium 143 Potassium 4.6 Chloride 110 H Carbon Dioxide 28 Anion Gap 5 L BUN 29.1 H Creatinine 0.9 Est GFR (CKD-EPI)AfAm 95.15 Est GFR (CKD-EPI)NonAf 82.09 Random Glucose 146 H Calcium 7.5 L Phosphorus 2.4 L Magnesium 2.9 H Total Bilirubin 0.8 AST 15 ALT 28 Alkaline Phosphatase 56 LD Total 424 H C-Reactive Protein 12.2 H Total Protein 5.0 L Albumin 1.6 L S1 S2 Irregular Lungs decreased breath sounds Abd- soft, NT No edema A/P acute respiratory failure Fever, pneumonitis CHF decompensation Aflutter -- COVID negative -- on stress steroids -- ICU management --s/p cardioversion -- rate control -- continue with meds --broad spectrum antibiotics -- prognosis is poor -- on pressor support -- clinically not improving patient is DNR Problem List - Problems (1) Acute on chronic diastolic (congestive) heart failure Code(s): I50.33 - ACUTE ON CHRONIC DIASTOLIC (CONGESTIVE) HEART FAILURE (2) Acute respiratory failure with hypoxia Code(s): J96.01 - ACUTE RESPIRATORY FAILURE WITH HYPOXIA (3) Atrial fibrillation Code(s): I48.91 - UNSPECIFIED ATRIAL FIBRILLATION (4) GERD (gastroesophageal reflux disease) Code(s): K21.9 - GASTRO-ESOPHAGEAL REFLUX DISEASE WITHOUT ESOPHAGITIS (5) HTN (hypertension) Code(s): I10 - ESSENTIAL (PRIMARY) HYPERTENSION Qualifiers: Hypertension type: essential hypertension Qualified Code(s): I10 - Essential (primary) hypertension (6) Suspected 2019 novel coronavirus infection Code(s): Z20.828 - CONTACT W AND EXPOSURE TO [facility] VIRAL COMMUNICABLE DISEASES
[2019-10-10] MEDS ORDERED: dilTIAZem HCL 60 MG TABLET PO SCH (14:00)
[2019-10-10] MEDS: ACETAMINOPHEN 325 MG TABLET (FP) PO PRN (18:03)
[2019-10-10] MEDS: ATORVASTATIN CA 40 MG TABLET (FP) PO SCH (21:10)
[2019-10-10] MEDS: MIRTAZAPINE 15 MG TABLET (FP) PO SCH (21:10)
[2019-10-10] MEDS: CHLORHEXIDINE GLUCONATE 4% CLEANSER FOR DECOLONIZATION TP SCH (22:18)
[2019-10-10] MEDS: SOTALOL HCL 80 MG TABLET (FP) PO SCH (22:55)
[2019-10-11] MEDS: MIDAZOLAM IN 0.9 % SOD.CHLORID 100 MG/100 ML PLAST..BAG IVPB SCH
[2019-10-11] MEDS ORDERED: PIPERACILLIN/TAZOBACTAM 3.375 GM VIAL IVPB ONE ×3 (01:55→17:53)
[2019-10-11] MEDS ORDERED: DEXTROSE 5%-WATER - 50 ML IVPB ONE ×3 (01:55→17:53)
[2019-10-11] MEDS: FENTANYL IVPB 500 MCG/100 ML BAG IVPB SCH ×2 (01:57→21:11)
[2019-10-11] MEDS: PIPERACILLIN/TAZOB 3.375 GM 3.375 GM in DEXTROSE 5%-WATER - 50 ML IVPB SCH ×3 (01:57→18:17)
[2019-10-11] MEDS: HYDROCORTISONE SOD SUCCINATE 100 MG/2 ML VIAL IVPUSH SCH ×3 (01:59→21:12)
[2019-10-11 06:12] LABS: ARTERIAL BLD GAS O2 SATURATION 99.3 mmHg (95-98); ARTERIAL BLOOD GAS BASE EXCESS 3.4 mmol/L (-2-2); ARTERIAL BLOOD GAS pH 7.422 (7.350-7.450)
[2019-10-11 06:31] LABS: ALLENS TEST POSITIVE; VENT MODE A/C
[2019-10-11 06:32] LABS: VENT RATE 18
[2019-10-11 07:37] LABS: BASO % 0.2 % (0-2.0); HEMATOCRIT 19.6 % (35.4-49); LYMPH % 6.1 % (8-40); MCH 29.6 pg (25.7-33.7); MCHC 31.9 g/dl (32.0-35.9); MEAN CELL VOLUME 92.6 fl (80-96); MEAN PLT VOLUME 8.2 fl (7.5-11.1); MONO % 1.8 % (3.8-10.2); NEUT % 91.9 % (42.8-82.8); PLATELET COUNT 111 K/MM3 (134-434); RBC 2.12 M/mm3 (4.00-5.60); RDW 16.8 % (11.9-15.9); WHITE BLOOD COUNT 6.1 K/mm3 (4.0-10.0)
[2019-10-11 07:53] LABS: ALBUMIN 1.5 g/dl (3.4-5.0); BILIRUBIN,TOTAL 0.6 mg/dL (0.2-1); BLOOD UREA NITROGEN 50.2 mg/dL (7-18); MAGNESIUM 2.8 mg/dL (1.8-2.4); PHOSPHOROUS 2.2 mg/dL (2.5-4.9); POTASSIUM 4.3 mmol/L (3.5-5.1); TOT PROT 4.7 g/dl (6.4-8.2)
[2019-10-11 08:07] LABS: CALCIUM 6.9 mg/dL (8.5-10.1)
[2019-10-11 08:10] LABS: HEMOGLOBIN 6.3 GM/dL (11.7-16.9)
--- NOTE | 2019-10-11 10:24 | PN ---
Progress Note, Physician History of Present Illness: pt seen/ examined in icu chart reviewed intubated/sedated All f/u noted - Current Medication List Current Medications: Active Medications Acetaminophen (Tylenol -) 650 mg PO Q6H PRN PRN Reason: FEVER Last Admin: 10/10/19 18:03 Dose: 650 mg Documented by: Albuterol Sulfate (Ventolin Hfa Inhaler -) 2 puff IH Q4H PRN PRN Reason: SHORT OF BREATH/WHEEZING Apixaban (Eliquis -) 5 mg PO BID [facility] Last Admin: 10/10/19 21:10 Dose: 5 mg Documented by: Atorvastatin Calcium (Lipitor -) 40 mg PO HS [facility] Last Admin: 10/10/19 21:10 Dose: 40 mg Documented by: Chlorhexidine Gluconate (Hibiclens For Decolonization -) 1 applic TP [facility] Last Admin: 10/10/19 22:18 Dose: 1 applic Documented by: Fludrocortisone Acetate (Florinef -) 0.2 mg PO DAILY [facility] Last Admin: 10/10/19 09:21 Dose: 0.2 mg Documented by: Hydrocortisone Sodium Succinate (Solu-Cortef -) 50 mg IVPUSH Q6H-IV [facility] Last Admin: 10/11/19 01:59 Dose: 50 mg Documented by: Fentanyl (Sublimaze Ivpb) 500 mcg in 100 mls @ 10 mls/hr IVPB TITR [facility]; Protocol Last Admin: 10/11/19 01:57 Dose: 100 mcg/hr, 20 mls/hr Documented by: Midazolam HCl (Midazolam 100mg/100ml-0.9%Nacl) 100 mg in 100 mls @ 1 mls/hr IVPB TITR [facility]; Protocol Last Admin: 10/11/19 00:00 Dose: Not Given Documented by: Norepinephrine Bitartrate (Levophed Bag - Ns) 16,000 mcg in 500 mls @ 9.375 m ls/hr IVPB TITR [facility]; Protocol Last Titration: 10/10/19 11:00 Dose: 0 mcg/min, 0 mls/hr Documented by: Piperacillin Sod/Tazobactam (Sod 3.375 gm/ Dextrose) 50 mls @ 100 mls/hr IVPB Q8H-IV [facility]; Protocol Last Admin: 10/11/19 01:57 Dose: 100 mls/hr Documented by: Vasopressin 40 units/ Sodium (Chloride) 100 mls @ 5 mls/hr IVPB ASDIR [facility]; Protocol Last Admin: 10/10/19 10:23 Dose: Not Given Documented by: Metoprolol Tartrate (Lopressor Injection -) 2.5 mg IVPUSH Q4H PRN PRN Reason: HYPERTENSION Last Admin: 10/10/19 17:16 Dose: 2.5 mg Documented by: Mirtazapine (Remeron -) 15 mg PO HS [facility] Last Admin: 10/10/19 21:10 Dose: 15 mg Documented by: Pantoprazole Sodium (Protonix Iv) 40 mg IVPUSH DAILY [facility] Last Admin: 10/10/19 09:37 Dose: 40 mg Documented by: Sotalol HCl (Betapace -) 80 mg PO BID [facility] Last Admin: 10/10/19 22:55 Dose: 80 mg Documented by: - Objective Vital Signs: Vital Signs Temperature 99.9 F H 10/11/19 06:00 Pulse Rate 75 10/11/19 08:33 Respiratory Rate 18 10/11/19 08:33 Blood Pressure 109/50 L 10/11/19 06:00 O2 Sat by Pulse Oximetry (%) 96 10/11/19 08:33 Constitutional: Yes: Other (intubated) Cardiovascular: Yes: Regular Rate and Rhythm Respiratory: Yes: Diminished Gastrointestinal: Yes: Soft Edema: LLE: 1+, RLE: 1+ Labs: CBC, BMP 10/11/19 06:10 10/11/19 06:10 INR, PTT INR 1.97 (0.83-1.09) H 09/23/19 18:40 Fibrinogen > 500.0 mg/dL (238-498) H 10/08/19 06:30 Problem List - Problems (1) Acute respiratory failure with hypoxia Code(s): J96.01 - ACUTE RESPIRATORY FAILURE WITH HYPOXIA (2) Atrial fibrillation Code(s): I48.91 - UNSPECIFIED ATRIAL FIBRILLATION (3) CAD (coronary artery disease) Code(s): I25.10 - ATHSCL HEART DISEASE OF [place] CORONARY ARTERY W/O ANG PCTRS Qualifiers: Coronary Disease-Associated Artery/Lesion type: [place] artery [place] vs. transplanted heart: [place] heart Associated angina: without angina Qualified Code(s): I25.10 - Atherosclerotic heart disease of [place] coronary artery without angina pectoris (4) History of depression Code(s): Z86.59 - PERSONAL HISTORY OF OTHER MENTAL AND BEHAVIORAL DISORDERS (5) S/P AVR (aortic valve replacement) Code(s): Z95.2 - PRESENCE OF PROSTHETIC HEART VALVE (6) Suspected 2019 novel coronavirus infection Code(s): Z20.828 - CONTACT W AND EXPOSURE TO [facility] VIRAL COMMUNICABLE DISEASES Assessment/Plan acute respiratory failure pneumonitis CHF decompensation Aflutter -- COVID negative -- on stress steroids --pressor support --s/p cardioversion -- --broad spectrum antibiotics -- overall condition--is poor transfuse today Patient is DNR Continue present care Discussed with ICU team again today D/W Rn also Critical care time--approximately 35 minutes Will continue to follow
[2019-10-11] MEDS ORDERED: PT OWN MED DRAWER 7, Y5N ONE (10:50)
[2019-10-11] MEDS: FLUDROCORTISONE ACETATE 0.1 MG TABLET (FP) PO SCH (11:35)
[2019-10-11] MEDS: APIXABAN 5 MG TABLET PO SCH ×2 (11:35→21:12)
[2019-10-11] MEDS: PANTOPRAZOLE SODIUM 40 MG VIAL IVPUSH SCH (11:35)
[2019-10-11] MEDS: VASOPRESSIN 40 UNITS in SODIUM CHLORIDE 98 ML IVPB SCH (11:35)
[2019-10-11] MEDS: SOTALOL HCL 80 MG TABLET (FP) PO SCH ×2 (11:35→21:17)
[2019-10-11 13:49] LABS: OVALOCYTE 1+; TEAR DROP CELLS 1+
[2019-10-11 13:50] LABS: PLATELET ESTIMATE DECREASED
--- NOTE | 2019-10-11 14:00 | PN ---
Teaching Attending Note Name of Resident: Rubin Valdes ATTENDING PHYSICIAN STATEMENT I saw and evaluated the patient. I reviewed the resident's note and discussed the case with the resident. I agree with the resident's findings and plan as documented. SUBJECTIVE: Pt seen and examined in the ICU. Remains intubated, sedated. Pressors titrated off. Vented on volume assist control with 100% FiO2, PEEP 8. Pplat 26. OBJECTIVE: Vital Signs Period Temp Pulse Resp BP Sys/Amador Pulse Ox Last 24 Hr 99.8 F-100.9 F 68-122 17-23 99-120/48-62 95-100 Intake & Output 10/08/19 10/09/19 10/10/19 10/11/19 23:59 23:59 23:59 23:59 Intake Total 1317 1301.4 1376.2 410 Output Total 1300 1100 900 500 Balance 17 201.4 476.2 -90 Weight 67.9 kg 66.5 kg 66.5 kg 66.5 kg Gen: intubated, sedated Heart: RRR Lung: scattered rhonchi Abd: soft, nontender Ext: + edema CBC, BMP 10/11/19 06:10 10/11/19 06:10 ABG Results ABG pH 7.422 (7.350-7.450) 10/11/19 05:30 ABG HCO3 28.2 mmol/L (22-27) H 10/11/19 05:30 ABG O2 Sat (Measured) 99.3 mmHg (95-98) H 10/11/19 05:30 ABG O2 Content No Result Required. 10/11/19 05:30 ABG Base Excess 3.4 mmol/L (-2-2) H 10/11/19 05:30 Active Medications Acetaminophen (Tylenol -) 650 mg PO Q6H PRN PRN Reason: FEVER Last Admin: 10/10/19 18:03 Dose: 650 mg Documented by: Albuterol Sulfate (Ventolin Hfa Inhaler -) 2 puff IH Q4H PRN PRN Reason: SHORT OF BREATH/WHEEZING Apixaban (Eliquis -) 5 mg PO BID [facility] Last Admin: 10/11/19 11:35 Dose: 5 mg Documented by: Atorvastatin Calcium (Lipitor -) 40 mg PO HS [facility] Last Admin: 10/10/19 21:10 Dose: 40 mg Documented by: Chlorhexidine Gluconate (Hibiclens For Decolonization -) 1 applic TP HS [facility] Last Admin: 10/10/19 22:18 Dose: 1 applic Documented by: Fludrocortisone Acetate (Florinef -) 0.2 mg PO DAILY [facility] Last Admin: 10/11/19 11:35 Dose: 0.2 mg Documented by: Hydrocortisone Sodium Succinate (Solu-Cortef -) 50 mg IVPUSH Q6H-IV [facility] Last Admin: 10/11/19 10:35 Dose: 50 mg Documented by: Fentanyl (Sublimaze Ivpb) 500 mcg in 100 mls @ 10 mls/hr IVPB TITR [facility]; Protocol Last Admin: 10/11/19 01:57 Dose: 100 mcg/hr, 20 mls/hr Documented by: Midazolam HCl (Midazolam 100mg/100ml-0.9%Nacl) 100 mg in 100 mls @ 1 mls/hr IVPB TITR [facility]; Protocol Last Admin: 10/11/19 00:00 Dose: Not Given Documented by: Norepinephrine Bitartrate (Levophed Bag - Ns) 16,000 mcg in 500 mls @ 9.375 mls/hr IVPB TITR [facility]; Protocol Last Titration: 10/10/19 11:00 Dose: 0 mcg/min, 0 mls/hr Documented by: Piperacillin Sod/Tazobactam (Sod 3.375 gm/ Dextrose) 50 mls @ 100 mls/hr IVPB Q8H-IV [facility]; Protocol Last Admin: 10/11/19 11:36 Dose: 100 mls/hr Documented by: Vasopressin 40 units/ Sodium (Chloride) 100 mls @ 5 mls/hr IVPB ASDIR [facility]; Prot ocol Last Admin: 10/11/19 11:35 Dose: Not Given Documented by: Metoprolol Tartrate (Lopressor Injection -) 2.5 mg IVPUSH Q4H PRN PRN Reason: HYPERTENSION Last Admin: 10/10/19 17:16 Dose: 2.5 mg Documented by: Mirtazapine (Remeron -) 15 mg PO HS [facility] Last Admin: 10/10/19 21:10 Dose: 15 mg Documented by: Pantoprazole Sodium (Protonix Iv) 40 mg IVPUSH DAILY [facility] Last Admin: 10/11/19 11:35 Dose: 40 mg Documented by: Sotalol HCl (Betapace -) 80 mg PO BID [facility] Last Admin: 10/11/19 11:35 Dose: 80 mg Documented by: ASSESSMENT AND PLAN: Acute Hypoxic Respiratory Failure Suspected COVID19 Pneumonia ARDS Sepsis Paroxysmal Atrial Fibrillation CAD s/p CABG Aortic Stenosis s/p AVR HTN Hypercholesterolemia Anemia - continue antibiotics - f/u cultures - off pressors, maintain MAP >65 - continue stress dose steroids - continue anticoagulation - rate control - titrate FiO2, PEEP to keep SpO2 >90% - monitor Pplat - sedate for vent synchrony - enteral feeds - DVT/GI prophylaxis - continue ICU monitoring - continue discussions regarding goals of care critical care time spent in reviewing chart, evaluating patient and formulating plan 35 min
[2019-10-11] MEDS ORDERED: ACETAMINOPHEN 1000 MG/100 ML VIAL (NON FORMULARY) IVPB PRN (14:13)
--- NOTE | 2019-10-11 16:12 | EKG ---
Test Reason : Blood Pressure : / mmHG Vent. Rate : 083 BPM Atrial Rate : 083 BPM P-R Int : 104 ms QRS Dur : 108 ms QT Int : 392 ms P-R-T Axes : 076 026 178 degrees QTc Int : 460 ms SINUS RHYTHM WITH SHORT CA LEFT VENTRICULAR HYPERTROPHY WITH REPOLARIZATION ABNORMALITY ABNORMAL ECG WHEN COMPARED WITH ECG OF 10-OCT-2019 22:33, PREMATURE VENTRICULAR COMPLEXES ARE NO LONGER PRESENT PREMATURE ATRIAL COMPLEXES ARE NO LONGER PRESENT Confirmed by BRANDON MANZANO, LOUIS ([id number]) on 10/11/2019 4:11:48 PM Referred By: Confirmed By:LOUIS TAYLOR MD
--- NOTE | 2019-10-11 16:58 | PN ---
Progress Note, Physician Chief Complaint: Events noted Now in ICU on mechanical ventilator History of Present Illness: Patient was seen and examined. Awake and alert. Chart was reviewed Intubated in ICU - Current Medication List Current Medications: Active Medications Acetaminophen (Tylenol -) 650 mg PO Q6H PRN PRN Reason: FEVER Last Admin: 10/10/19 18:03 Dose: 650 mg Documented by: Acetaminophen (Ofirmev Injection -) 1,000 mg IVPB Q6H PRN PRN Reason: FEVER Stop: 10/12/19 14:13 Albuterol Sulfate (Ventolin Hfa Inhaler -) 2 puff IH Q4H PRN PRN Reason: SHORT OF BREATH/WHEEZING Apixaban (Eliquis -) 5 mg PO BID [facility] Last Admin: 10/11/19 11:35 Dose: 5 mg Documented by: Atorvastatin Calcium (Lipitor -) 40 mg PO HS [facility] Last Admin: 10/10/19 21:10 Dose: 40 mg Documented by: Chlorhexidine Gluconate (Hibiclens For Decolonization -) 1 applic TP HS [facility] Last Admin: 10/10/19 22:18 Dose: 1 applic Documented by: Hydrocortisone Sodium Succinate (Solu-Cortef -) 50 mg IVPUSH BID [facility] Fentanyl (Sublimaze Ivpb) 500 mcg in 100 mls @ 10 mls/hr IVPB TITR [facility]; P rotocol Last Admin: 10/11/19 01:57 Dose: 100 mcg/hr, 20 mls/hr Documented by: Midazolam HCl (Midazolam 100mg/100ml-0.9%Nacl) 100 mg in 100 mls @ 1 mls/hr IVPB TITR [facility]; Protocol Last Admin: 10/11/19 00:00 Dose: Not Given Documented by: Norepinephrine Bitartrate (Levophed Bag - Ns) 16,000 mcg in 500 mls @ 9.375 mls/hr IVPB TITR [facility]; Protocol Last Titration: 10/10/19 11:00 Dose: 0 mcg/min, 0 mls/hr Documented by: Piperacillin Sod/Tazobactam (Sod 3.375 gm/ Dextrose) 50 mls @ 100 mls/hr IVPB Q8H-IV [facility]; Protocol Last Admin: 10/11/19 11:36 Dose: 100 mls/hr Documented by: Vasopressin 40 units/ Sodium (Chloride) 100 mls @ 5 mls/hr IVPB ASDIR [facility]; Protocol Last Admin: 10/11/19 11:35 Dose: Not Given Documented by: Propofol (Diprivan -) 1,000,000 mcg in 100 mls @ 11.97 mls/hr IVPB TITR [facility]; Protocol Metoprolol Tartrate (Lopressor Injection -) 2.5 mg IVPUSH Q4H PRN PRN Reason: HYPERTENSION Last Admin: 10/10/19 17:16 Dose: 2.5 mg Documented by: Mirtazapine (Remeron -) 15 mg PO HS [facility] Last Admin: 10/10/19 21:10 Dose: 15 mg Documented by: Pantoprazole Sodium (Protonix Iv) 40 mg IVPUSH DAILY [facility] Last Admin: 10/11/19 11:35 Dose: 40 mg Documented by: Sotalol HCl (Betapace -) 80 mg PO BID [facility] Last Admin: 10/11/19 11:35 Dose: 80 mg Documented by: - Objective Vital Signs: Vital Signs Temperature 99.9 F H 10/11/19 06:00 Pulse Rate 75 10/11/19 08:33 Respiratory Rate 22 H 10/11/19 16:15 Blood Pressure 109/50 L 10/11/19 06:00 O2 Sat by Pulse Oximetry (%) 94 L 10/11/19 16:15 Cardiovascular: Yes: S1, S2 Respiratory: Yes: Intubated Gastrointestinal: Yes: Normal Bowel Sounds, Soft. No: Tenderness Edema: Yes Labs: CBC, BMP 10/11/19 06:10 10/11/19 06:10 Problem List - Problems (1) Acute on chronic diastolic (congestive) heart failure Code(s): I50.33 - ACUTE ON CHRONIC DIASTOLIC (CONGESTIVE) HEART FAILURE (2) Acute respiratory failure with hypoxia Code(s): J96.01 - ACUTE RESPIRATORY FAILURE WITH HYPOXIA (3) Aortic aneurysm Code(s): I71.9 - AORTIC ANEURYSM OF UNSPECIFIED SITE, WITHOUT RUPTURE (4) Atrial flutter Code(s): I48.92 - UNSPECIFIED ATRIAL FLUTTER Qualifiers: Atrial flutter type: typical Qualified Code(s): I48.3 - Typical atrial flutter (5) CAD (coronary artery disease) Code(s): I25.10 - ATHSCL HEART DISEASE OF [place] CORONARY ARTERY W/O ANG PCTRS Qualifiers: Coronary Disease-Associated Artery/Lesion type: [place] artery [place] vs. transplanted heart: [place] heart Associated angina: without angina Qualified Code(s): I25.10 - Atherosclerotic heart disease of [place] coronary artery without angina pectoris (6) GERD (gastroesophageal reflux disease) Code(s): K21.9 - GASTRO-ESOPHAGEAL REFLUX DISEASE WITHOUT ESOPHAGITIS (7) HTN (hypertension) Code(s): I10 - ESSENTIAL (PRIMARY) HYPERTENSION Qualifiers: Hypertension type: essential hypertension Qualified Code(s): I10 - Essential (primary) hypertension (8) Hypercholesterolemia Code(s): E78.00 - PURE HYPERCHOLESTEROLEMIA, UNSPECIFIED (9) S/P AVR (aortic valve replacement) Code(s): Z95.2 - PRESENCE OF PROSTHETIC HEART VALVE (10) S/P left atrial appendage ligation Code(s): Z98.890 - OTHER SPECIFIED POSTPROCEDURAL STATES (11) Suspected COVID-19 virus infection Code(s): Z20.828 - CONTACT W AND EXPOSURE TO [facility] VIRAL COMMUNICABLE DISEASES Assessment/Plan 1. Recurrent acute hypoxic respiratory failure related to bronchopneumonia with probable sepsis syndrome, coronavirus/COVID 19 - pneumonitis - respiratory failure on mechanical ventilation 2. Clinical presentation is consistent with chronic class I-II NYHA classification LV diastolic heart failure, no evidence of acute decompensation 3. Paroxysmal atrial flutter with periods rapid ventricular response s/p DCCV to initially MAT now ?sinus with APC 4. CAD post CABG with evidence of demand ischemia related to the above-noted clinical presentation angina pectoris 5. Aortic valve stenosis post SAVR/bio-prosthesis with [place] appendage ligation 6. Hypertensive cardiovascular disease 7. Hypercholesterolemia 8. Anemia PLAN: 1. Mechanical ventilator as per critical care team. Weaned off pressors 2. Wean FIO2 and PEEP to maintain saO2, bronchodilator, IV steroids with GI protection, empiric antibiotic course 3. Continue sotalol 80 mg BID with QTc check and on Lopressor 2.5 IV q4 prn 4. Continue Atorvastatin 40 mg QD and Eliquis 5 mg BID as tolerated 5. Monitor renal function and electrolytes DNR Supportive care Guarded Phuc Dillon MD
--- NOTE | 2019-10-11 18:23 | EKG ---
Test Reason : Blood Pressure : / mmHG Vent. Rate : 091 BPM Atrial Rate : 091 BPM P-R Int : 090 ms QRS Dur : 106 ms QT Int : 368 ms P-R-T Axes : 067 021 183 degrees QTc Int : 452 ms SINUS RHYTHM WITH SHORT ND WITH OCCASIONAL PREMATURE VENTRICULAR COMPLEXES AND PREMATURE ATRIAL COMPLEXES LEFT VENTRICULAR HYPERTROPHY WITH REPOLARIZATION ABNORMALITY ABNORMAL ECG WHEN COMPARED WITH ECG OF 06-OCT-2019 01:21, PREMATURE VENTRICULAR COMPLEXES ARE NOW PRESENT T WAVE INVERSION MORE EVIDENT IN INFERIOR LEADS Confirmed by LOUIS TAYLOR MD ([id number]) on 10/11/2019 6:22:44 PM Referred By: RESHMA Confirmed By:LOUIS TAYLOR MD
--- NOTE | 2019-10-11 20:13 | PN ---
Physical Exam: SUBJECTIVE: Patient seen and examined. Pt sedated and intubated. OBJECTIVE: Vital Signs Period Temp Pulse Resp BP Sys/Amador Pulse Ox Last 24 Hr 99.8 F-100.4 F 58-112 17-22 99-168/45-94 94-100 GENERAL: The patient is sedated and intubated. HEAD: Normal with no signs of trauma. ENT: Ears normal, nares patent, pt intubated NECK: Trachea midline. LUNGS: Rhonchi on bilateral lung [place] HEART: Regular rate and rhythm ABDOMEN: Soft, nontender, nondistended, normoactive bowel sounds EXTREMITIES: 2+ pulses, bilateral lower ext edema SKIN: Warm, dry, normal turgor, no rashes or lesions noted Laboratory Results - last 24 hr 10/11/19 10/11/19 10/11/19 05:30 06:10 06:10 WBC 6.1 RBC 2.12 L Hgb 6.3 L* Hct 19.6 L MCV 92.6 MCH 29.6 MCHC 31.9 L RDW 16.8 H Plt Count 111 L MPV 8.2 Absolute Neuts (auto) 5.6 Total Counted 100 Neutrophils % 91.9 H Neutrophils % (Manual) 89.0 H Band Neutrophils % 6.0 Lymphocytes % 6.1 L D Lymphocytes % (Manual) 4.0 L D Monocytes % 1.8 L Monocytes % (Manual) 1 L Eosinophils % 0.0 Basophils % 0.2 Nucleated RBC % 0 Platelet Estimate Decreased Polychromasia 1+ Basophilic Stippling 1+ Spherocytes 1+ Tear Drop Cells 1+ Ovalocytes 1+ Anticoagulation Therapy No Result Required. Puncture Site Right radial Patient Temperature No Result Required. ABG pH 7.422 ABG pCO2 44.20 ABG pO2 190.0 H ABG HCO3 28.2 H ABG O2 Sat (Measured) 99.3 H ABG O2 Content No Result Required. ABG Base Excess 3.4 H Polo Test Positive Patient On Oxygen Yes O2 Delivery Device Vent Oxygen Flow Rate 70% Vent Mode A/c Vent Rate 18 Mechanical Rate Yes PEEP 8.0 Pressure Support Vent 450 Sodium 148 H Potassium 4.3 Chloride 115 H Carbon Dioxide 28 Anion Gap 5 L BUN 50.2 H Creatinine 1.0 Est GFR (CKD-EPI)AfAm 83.77 Est GFR (CKD-EPI)NonAf 72.28 Random Glucose 252 H Calcium 6.9 L* Phosphorus 2.2 L Magnesium 2.8 H Total Bilirubin 0.6 AST 23 ALT 27 Alkaline Phosphatase 50 Total Protein 4.7 L Albumin 1.5 L Blood Type Antibody Screen Crossmatch 10/11/19 10/11/19 08:50 08:50 WBC RBC Hgb Hct MCV MCH MCHC RDW Plt Count MPV Absolute Neuts (auto) Total Counted Neutrophils % Neutrophils % (Manual) Band Neutrophils % Lymphocytes % Lymphocytes % (Manual) Monocytes % Monocytes % (Manual) Eosinophils % Basophils % Nucleated RBC % Platelet Estimate Polychromasia Basophilic Stippling Spherocytes Tear Drop Cells Ovalocytes Anticoagulation Therapy Puncture Site Patient Temperature ABG pH ABG pCO2 ABG pO2 ABG HCO3 ABG O2 Sat (Measured) ABG O2 Content ABG Base Excess Polo Test Patient On Oxygen O2 Delivery Device Oxygen Flow Rate Vent Mode Vent Rate Mechanical Rate PEEP Pressure Support Vent Sodium Potassium Chloride Carbon Dioxide Anion Gap BUN Creatinine Est GFR (CKD-EPI)AfAm Est GFR (CKD-EPI)NonAf Random Glucose Calcium Phosphorus Magnesium Total Bilirubin AST ALT Alkaline Phosphatase Total Protein Albumin Blood Type O POSITIVE Cancelled Antibody Screen Negative Cancelled Crossmatch See Detail Active Medications Generic Name Dose Route Start Last Admin Trade Name Freq PRN Reason Stop Dose Admin Acetaminophen 650 mg 10/06/19 00:25 10/10/19 18:03 Tylenol - PO 650 mg Q6H PRN Administration FEVER Acetaminophen 1,000 mg 10/11/19 14:13 10/11/19 14:00 Ofirmev Injection - IVPB 10/12/19 14:13 1,000 mg Q6H PRN Administration FEVER Albuterol Sulfate 2 puff 10/06/19 00:25 Ventolin Hfa Inhaler - IH Q4H PRN SHORT OF BREATH/WHEEZING Apixaban 5 mg 10/06/19 10:00 10/11/19 11:35 Eliquis - PO 5 mg BID MAGI Administration Atorvastatin Calcium 40 mg 10/06/19 22:00 10/10/19 21:10 Lipitor - PO 40 mg HS MAGI Administration Chlorhexidine Gluconate 1 applic 10/06/19 22:00 10/10/19 22:18 Hibiclens For Decolonization - TP 1 applic HS MAGI Administration Hydrocortisone Sodium Succinate 50 mg 10/11/19 22:00 Solu-Cortef - IVPUSH BID MAGI Fentanyl 500 mcg in 100 mls @ 10 mls/hr 10/06/19 00:45 10/11/19 01:57 Sublimaze Ivpb IVPB 100 mcg/hr TITR MAGI 20 mls/hr Administration Protocol 50 MCG/HR Midazolam HCl 100 mg in 100 mls @ 1 mls/hr 10/06/19 00:45 10/11/19 00:00 Midazolam 100mg/100ml-0.9%Nacl IVPB Not Given TITR MAGI Protocol 1 MG/HR Norepinephrine Bitartrate 16,000 mcg in 500 mls @ 9.375 mls/hr 10/06/19 07:45 10/10/19 11:00 Levophed Bag - Ns IVPB 0 mcg/min TITR MAGI 0 mls/hr Titration Protocol 5 MCG/MIN Piperacillin Sod/Tazobactam 50 mls @ 100 mls/hr 10/06/19 08:45 10/11/19 18:17 Sod 3.375 gm/ Dextrose IVPB 100 mls/hr Q8H-IV MAGI Administration Protocol Vasopressin 40 units/ Sodium 100 mls @ 5 mls/hr 10/06/19 09:15 10/11/19 11:35 Chloride IVPB Not Given ASDIR MAGI Protocol 2 UNITS/HR Propofol 1,000,000 mcg in 100 mls @ 11.97 mls/hr 10/11/19 14:30 Diprivan - IVPB TITR MAGI Protocol 30 MCG/KG/MIN Metoprolol Tartrate 2.5 mg 10/10/19 08:08 10/10/19 17:16 Lopressor Injection - IVPUSH 2.5 mg Q4H PRN Administration HYPERTENSION Mirtazapine 15 mg 10/06/19 22:00 10/10/19 21:10 Remeron - PO 15 mg HS MAGI Administration Pantoprazole Sodium 40 mg 10/06/19 11:15 10/11/19 11:35 Protonix Iv IVPUSH 40 mg DAILY MAGI Administration Sotalol HCl 80 mg 10/10/19 22:30 10/11/19 11:35 Betapace - PO 80 mg BID MAGI Administration ASSESSMENT/PLAN: 78 yo male presents to ICU for acute hypoxic resp failure due to possible COVID pneumonitis and ARDS. Neuro - sedated on midazolam 1 mls/h, propofol (added 10/10) 30 mcg/kg. min, fentanyl 10mls/hr - Held mirtazapine CV - afib, chf, htn, hld. Persistent aflutter with periods rvr s/p cardioversion - eliquis 5mg bid - metroprolol 2.5 mg q 4 hr -sotalol 80 mg PO BID check QTc below 500 - On levo 5mcg/min and Vasopressin 2 units/ hr but taking off pressors Pulm - Possible COvid pneumonitis. Acute hypoxic resp failure due to ARDS - Hydrocortisone 50mg q 12hr - held fludrocortisone - Intubated on 10/04 due to resp failure ID - Possible COVID pneumonitis Leukocytosis - c/w IV tylenol PRN for fevers - trend inflammatory markers. Currently increasing trend. - f/u cultures. pending viral panel, rpt covid negative. pending legionella - c/w vanc & zosyn - ID consulted. recommendations appreciated - COVID test negative on 09/22, SARS COV-2 negative 09/29 Renal No acute issues -Monitor I/O's, Cr and electrolytes Heme - pt transfused 1 PRBC - stool occult ordered GI - h/o GI bleed - no acute issues - c/w protonix LTD -Smiley 10/04 - RIJ 10/05 - intubation 10/04 Prophylaxis - DVT- SCD/ eliquis - GI- protonix Visit type - Emergency Visit Emergency Visit: Yes ED Registration Date: 09/23/19 Care time: The patient presented to the Emergency Department on the above date and was hospitalized for further evaluation of their emergent condition. - New Patient This patient is new to me today: Yes Date on this admission: 10/12/19 - Critical Care Critical Care patient: Yes Total Critical Care Time (in minutes): 35 Critical Care Statement: The care of this patient involved high complexity decision making to prevent further life threatening deterioration of the patient's condition and/or to evaluate & treat vital organ system(s) failure or risk of failure. - Medication Review Med list reviewed for High Risk Meds patients 65 and older: Yes ATTENDING PHYSICIAN STATEMENT I saw and evaluated the patient. I reviewed the resident's note and discussed the case with the resident. I agree with the resident's findings and plan as documented. SUBJECTIVE: OBJECTIVE: ASSESSMENT AND PLAN:
[2019-10-11] MEDS: PROPOFOL 1,000,000 MCG/100 ML VIAL IVPB SCH (21:07)
[2019-10-11] MEDS: NOREPINEPHRINE NS PREMIX 16,000 MCG/500 ML BAG IVPB SCH (21:07)
[2019-10-11] MEDS: CHLORHEXIDINE GLUCONATE 4% CLEANSER FOR DECOLONIZATION TP SCH (21:12)
[2019-10-11] MEDS: ACETAMINOPHEN 325 MG TABLET (FP) PO PRN (21:12)
[2019-10-11] MEDS: ATORVASTATIN CA 40 MG TABLET (FP) PO SCH (21:12)
[2019-10-11] MEDS: MIRTAZAPINE 15 MG TABLET (FP) PO SCH (21:12)
[2019-10-12] MEDS ORDERED: PIPERACILLIN/TAZOBACTAM 3.375 GM VIAL IVPB ONE ×2 (00:47→16:08)
[2019-10-12] MEDS ORDERED: DEXTROSE 5%-WATER - 50 ML IVPB ONE ×2 (00:47→16:08)
[2019-10-12] MEDS: PIPERACILLIN/TAZOB 3.375 GM 3.375 GM in DEXTROSE 5%-WATER - 50 ML IVPB SCH ×2 (01:02→16:17)
[2019-10-12] MEDS: MIDAZOLAM IN 0.9 % SOD.CHLORID 100 MG/100 ML PLAST..BAG IVPB SCH (01:03)
[2019-10-12] MEDS: FENTANYL IVPB 500 MCG/100 ML BAG IVPB SCH ×3 (02:13→21:31)
[2019-10-12 07:03] LABS: HEMATOCRIT 26.5 % (35.4-49); HEMOGLOBIN 8.6 GM/dL (11.7-16.9); MCH 29.6 pg (25.7-33.7); MCHC 32.5 g/dl (32.0-35.9); MEAN CELL VOLUME 90.8 fl (80-96); MEAN PLT VOLUME 8.7 fl (7.5-11.1); PLATELET COUNT 127 K/MM3 (134-434); RBC 2.91 M/mm3 (4.00-5.60); RDW 16.1 % (11.9-15.9); WHITE BLOOD COUNT 9.3 K/mm3 (4.0-10.0)
[2019-10-12 07:32] LABS: ALBUMIN 1.7 g/dl (3.4-5.0); BILIRUBIN,TOTAL 0.6 mg/dL (0.2-1); CALCIUM 7.1 mg/dL (8.5-10.1); CREATININE 0.9 mg/dL (0.55-1.3); MAGNESIUM 2.8 mg/dL (1.8-2.4); PHOSPHOROUS 2.5 mg/dL (2.5-4.9); POTASSIUM 4.5 mmol/L (3.5-5.1); TOT PROT 5.4 g/dl (6.4-8.2)
[2019-10-12] MEDS ORDERED: PT OWN MED DRAWER 7, Y5N ONE ×2 (09:15→21:24)
[2019-10-12] MEDS: APIXABAN 5 MG TABLET PO SCH ×2 (09:19→21:30)
[2019-10-12] MEDS: SOTALOL HCL 80 MG TABLET (FP) PO SCH ×2 (09:19→21:30)
[2019-10-12] MEDS: HYDROCORTISONE SOD SUCCINATE 100 MG/2 ML VIAL IVPUSH SCH ×2 (09:19→21:31)
[2019-10-12] MEDS: PANTOPRAZOLE SODIUM 40 MG VIAL IVPUSH SCH (09:19)
--- NOTE | 2019-10-12 09:49 | PN ---
Progress Note, Physician Chief Complaint: Events noted Remains in ICU on mechanical ventilator History of Present Illness: Patient was seen and examined. Awake and alert. Chart was reviewed - Current Medication List Current Medications: Active Medications Acetaminophen (Tylenol -) 650 mg PO Q6H PRN PRN Reason: FEVER Last Admin: 10/11/19 21:12 Dose: 650 mg Documented by: Acetaminophen (Ofirmev Injection -) 1,000 mg IVPB Q6H PRN PRN Reason: FEVER Stop: 10/12/19 14:13 Last Admin: 10/11/19 14:00 Dose: 1,000 mg Documented by: Albuterol Sulfate (Ventolin Hfa Inhaler -) 2 puff IH Q4H PRN PRN Reason: SHORT OF BREATH/WHEEZING Apixaban (Eliquis -) 5 mg PO BID MAGI Last Admin: 10/12/19 09:19 Dose: 5 mg Documented by: Atorvastatin Calcium (Lipitor -) 40 mg PO HS MAGI Last Admin: 10/11/19 21:12 Dose: 40 mg Documented by: Chlorhexidine Gluconate (Hibiclens For Decolonization -) 1 applic TP HS MAGI Last Admin: 10/11/19 21:12 Dose: 1 applic Documented by: Hydrocortisone Sodium Succinate (Solu-Cortef -) 50 mg IVPUSH BID MAGI Last Admin: 10/12/19 09:19 Dose: 50 mg Documented by: Fentanyl (Sublimaze Ivpb) 500 mcg in 100 mls @ 10 mls/hr IVPB TITR MAGI; Protocol Last Admin: 10/12/19 09:19 Dose: 100 mcg/hr, 20 mls/hr Documented by: Midazolam HCl (Midazolam 100mg/100ml-0.9%Nacl) 100 mg in 100 mls @ 1 mls/hr IVPB TITR MAGI; Protocol Last Admin: 10/12/19 01:03 Dose: Not Given Documented by: Norepinephrine Bitartrate (Levophed Bag - Ns) 16,000 mcg in 500 mls @ 9.375 mls/hr IVPB TITR MAGI; Protocol Last Admin: 10/11/19 21:07 Dose: Not Given Documented by: Vasopressin 40 units/ Sodium (Chloride) 100 mls @ 5 mls/hr IVPB ASDIR MAGI; Pr otocol Last Admin: 10/11/19 11:35 Dose: Not Given Documented by: Propofol (Diprivan -) 1,000,000 mcg in 100 mls @ 11.97 mls/hr IVPB TITR MAGI; Protocol Last Admin: 10/11/19 21:07 Dose: Not Given Documented by: Metoprolol Tartrate (Lopressor Injection -) 2.5 mg IVPUSH Q4H PRN PRN Reason: HYPERTENSION Last Admin: 10/10/19 17:16 Dose: 2.5 mg Documented by: Mirtazapine (Remeron -) 15 mg PO HS [facility] Last Admin: 10/11/19 21:12 Dose: 15 mg Documented by: Pantoprazole Sodium (Protonix Iv) 40 mg IVPUSH DAILY [facility] Last Admin: 10/12/19 09:19 Dose: 40 mg Documented by: Sotalol HCl (Betapace -) 80 mg PO BID [facility] Last Admin: 10/12/19 09:19 Dose: 80 mg Documented by: - Objective Vital Signs: Vital Signs Temperature 98.4 F 10/12/19 02:00 Pulse Rate 87 10/12/19 08:00 Respiratory Rate 18 10/12/19 08:00 Blood Pressure 155/79 10/12/19 08:00 O2 Sat by Pulse Oximetry (%) 100 10/12/19 08:00 Cardiovascular: Yes: Pulse Irregular, S1, S2 Respiratory: Yes: Diminished, Mechanically Ventilated Gastrointestinal: Yes: Normal Bowel Sounds, Soft. No: Tenderness Edema: No Labs: CBC, BMP 10/12/19 05:35 10/12/19 05:35 Problem List - Problems (1) Acute on chronic diastolic (congestive) heart failure Code(s): I50.33 - ACUTE ON CHRONIC DIASTOLIC (CONGESTIVE) HEART FAILURE (2) Acute respiratory failure with hypoxia Code(s): J96.01 - ACUTE RESPIRATORY FAILURE WITH HYPOXIA (3) Aortic aneurysm Code(s): I71.9 - AORTIC ANEURYSM OF UNSPECIFIED SITE, WITHOUT RUPTURE (4) Atrial flutter Code(s): I48.92 - UNSPECIFIED ATRIAL FLUTTER Qualifiers: Atrial flutter type: typical Qualified Code(s): I48.3 - Typical atrial flutter (5) CAD (coronary artery disease) Code(s): I25.10 - ATHSCL HEART DISEASE OF [place] CORONARY ARTERY W/O ANG PCTRS Qualifiers: Coronary Disease-Associated Artery/Lesion type: [place] artery [place] vs. transplanted heart: [place] heart Associated angina: without angina Qualified Code(s): I25.10 - Atherosclerotic heart disease of [place] coronary artery without angina pectoris (6) GERD (gastroesophageal reflux disease) Code(s): K21.9 - GASTRO-ESOPHAGEAL REFLUX DISEASE WITHOUT ESOPHAGITIS (7) HTN (hypertension) Code(s): I10 - ESSENTIAL (PRIMARY) HYPERTENSION Qualifiers: Hypertension type: essential hypertension Qualified Code(s): I10 - Essential (primary) hypertension (8) Hypercholesterolemia Code(s): E78.00 - PURE HYPERCHOLESTEROLEMIA, UNSPECIFIED (9) S/P AVR (aortic valve replacement) Code(s): Z95.2 - PRESENCE OF PROSTHETIC HEART VALVE (10) S/P left atrial appendage ligation Code(s): Z98.890 - OTHER SPECIFIED POSTPROCEDURAL STATES (11) Suspected COVID-19 virus infection Code(s): Z20.828 - CONTACT W AND EXPOSURE TO OTH VIRAL COMMUNICABLE DISEASES Assessment/Plan 1. Recurrent acute hypoxic respiratory failure related to bronchopneumonia with probable sepsis syndrome, coronavirus/COVID 19 - pneumonitis - respiratory failure on mechanical ventilation 2. Clinical presentation is consistent with chronic class I-II NYHA classif ication LV diastolic heart failure, no evidence of acute decompensation 3. Paroxysmal atrial flutter with periods rapid ventricular response s/p DCCV to initially MAT now ?sinus with APC 4. CAD post CABG with evidence of demand ischemia related to the above-noted clinical presentation angina pectoris 5. Aortic valve stenosis post SAVR/bio-prosthesis with LA appendage ligation 6. Hypertensive cardiovascular disease 7. Hypercholesterolemia 8. Anemia PLAN: 1. Mechanical ventilator as per critical care team. 2. Wean FIO2 and PEEP to maintain saO2, bronchodilator, IV steroids with GI protection, empiric antibiotic course 3. Continue sotalol 80 mg BID with QTc check and on Lopressor 2.5 IV q4 prn 4. Continue Atorvastatin 40 mg QD and Eliquis 5 mg BID as tolerated 5. Monitor renal function and electrolytes DNR Supportive care Guarded Phuc Dillon MD
--- NOTE | 2019-10-12 11:37 | PN ---
Progress Note (short form) - Note Progress Note: remains intubated Vital Signs - 24 hr 10/11/19 10/11/19 10/11/19 13:00 14:00 14:50 Temperature 100.4 F H 99.8 F H Pulse Rate 58 L Respiratory 18 Rate Blood Pressure 133/56 L O2 Sat by Pulse Oximetry (%) 10/11/19 10/11/19 10/11/19 15:00 16:15 17:00 Temperature Pulse Rate 105 H 106 H Respiratory 18 22 H 18 Rate Blood Pressure 157/65 159/82 O2 Sat by Pulse 98 94 L 100 Oximetry (%) 10/11/19 10/11/19 10/11/19 17:29 18:54 19:44 Temperature Pulse Rate 75 Respiratory 22 H 18 18 Rate Blood Pressure 167/67 O2 Sat by Pulse 94 L 100 100 Oximetry (%) 10/11/19 10/11/19 10/11/19 20:00 20:15 22:00 Temperature 99.5 F Pulse Rate 104 H 85 Respiratory 18 20 18 Rate Blood Pressure 132/78 93/54 L O2 Sat by Pulse 100 100 100 Oximetry (%) 10/12/19 10/12/19 10/12/19 00:00 00:30 02:00 Temperature 98.4 F Pulse Rate 75 73 Respiratory 18 18 18 Rate Blood Pressure 93/52 L 102/66 O2 Sat by Pulse 99 100 Oximetry (%) 10/12/19 10/12/19 10/12/19 04:00 04:25 06:00 Temperature Pulse Rate 83 84 Respiratory 16 18 16 Rate Blood Pressure 122/69 145/76 O2 Sat by Pulse 100 100 Oximetry (%) 10/12/19 10/12/19 10/12/19 08:00 10:00 12:00 Temperature 97.2 F L Pulse Rate 87 108 H 92 H Respiratory 18 18 18 Rate Blood Pressure 155/79 176/91 H 155/87 O2 Sat by Pulse 100 97 96 Oximetry (%) Current Medications Generic Name Dose Route Start Last Admin Trade Name Freq PRN Reason Stop Dose Admin Acetaminophen 650 mg 10/06/19 00:25 10/11/19 21:12 Tylenol - PO 650 mg Q6H PRN Administration FEVER Acetaminophen 1,000 mg 10/11/19 14:13 10/11/19 14:00 Ofirmev Injection - IVPB 10/12/19 14:13 1,000 mg Q6H PRN Administration FEVER Albuterol Sulfate 2 puff 10/06/19 00:25 Ventolin Hfa Inhaler - IH Q4H PRN SHORT OF BREATH/WHEEZING Apixaban 5 mg 10/06/19 10:00 10/12/19 09:19 Eliquis - PO 5 mg BID MAGI Administration Atorvastatin Calcium 40 mg 10/06/19 22:00 10/11/19 21:12 Lipitor - PO 40 mg HS MAGI Administration Chlorhexidine Gluconate 1 applic 10/06/19 22:00 10/11/19 21:12 Hibiclens For Decolonization - TP 1 applic HS MAGI Administration Hydrocortisone Sodium Succinate 50 mg 10/11/19 22:00 10/12/19 09:19 Solu-Cortef - IVPUSH 50 mg BID MAGI Administration Fentanyl 500 mcg in 100 mls @ 10 mls/hr 10/06/19 00:45 10/12/19 09:19 Sublimaze Ivpb IVPB 100 mcg/hr TITR MAGI 20 mls/hr Administration Protocol 50 MCG/HR Midazolam HCl 100 mg in 100 mls @ 1 mls/hr 10/06/19 00:45 10/12/19 01:03 Midazolam 100mg/100ml-0.9%Nacl IVPB Not Given TITR MAGI Protocol 1 MG/HR Norepinephrine Bitartrate 16,000 mcg in 500 mls @ 9.375 mls/hr 10/06/19 07:45 10/11/19 21:07 Levophed Bag - Ns IVPB Not Given TITR MAGI Protocol 5 MCG/MIN Vasopressin 40 units/ Sodium 100 mls @ 5 mls/hr 10/06/19 09:15 10/11/19 11:35 Chloride IVPB Not Given ASDIR MAGI Protocol 2 UNITS/HR Propofol 1,000,000 mcg in 100 mls @ 11.97 mls/hr 10/11/19 14:30 10/11/19 21:07 Diprivan - IVPB Not Given TITR MAGI Protocol 30 MCG/KG/MIN Metoprolol Tartrate 2.5 mg 10/10/19 08:08 10/10/19 17:16 Lopressor Injection - IVPUSH 2.5 mg Q4H PRN Administration HYPERTENSION Mirtazapine 15 mg 10/06/19 22:00 10/11/19 21:12 Remeron - PO 15 mg HS MAGI Administration Pantoprazole Sodium 40 mg 10/06/19 11:15 10/12/19 09:19 Protonix Iv IVPUSH 40 mg DAILY MAGI Administration Sotalol HCl 80 mg 10/10/19 22:30 10/12/19 09:19 Betapace - PO 80 mg BID MAGI Administration Laboratory Results - last 24 hr 10/11/19 10/11/19 10/11/19 06:10 08:50 19:58 WBC RBC Hgb Hct MCV MCH MCHC RDW Plt Count MPV Total Counted 100 Neutrophils % (Manual) 89.0 H Band Neutrophils % 6.0 Lymphocytes % (Manual) 4.0 L D Monocytes % (Manual) 1 L Platelet Estimate Decreased Polychromasia 1+ Basophilic Stippling 1+ Spherocytes 1+ Tear Drop Cells 1+ Ovalocytes 1+ Sodium Potassium Chloride Carbon Dioxide Anion Gap BUN Creatinine Est GFR (CKD-EPI)AfAm Est GFR (CKD-EPI)NonAf Random Glucose Calcium Phosphorus Magnesium Total Bilirubin AST ALT Alkaline Phosphatase Total Protein Albumin Stool Occult Blood Negative Blood Type O POSITIVE Antibody Screen Negative Crossmatch See Detail 10/12/19 10/12/19 05:35 05:35 WBC 9.3 RBC 2.91 L Hgb 8.6 L Hct 26.5 L D MCV 90.8 MCH 29.6 MCHC 32.5 RDW 16.1 H Plt Count 127 L MPV 8.7 Total Counted Neutrophils % (Manual) Band Neutrophils % Lymphocytes % (Manual) Monocytes % (Manual) Platelet Estimate Polychromasia Basophilic Stippling Spherocytes Tear Drop Cells Ovalocytes Sodium 149 H Potassium 4.5 Chloride 113 H Carbon Dioxide 29 Anion Gap 7 L BUN 49.0 H Creatinine 0.9 Est GFR (CKD-EPI)AfAm 95.15 Est GFR (CKD-EPI)NonAf 82.09 Random Glucose 261 H Calcium 7.1 L Phosphorus 2.5 Magnesium 2.8 H Total Bilirubin 0.6 AST 18 ALT 26 Alkaline Phosphatase 65 Total Protein 5.4 L Albumin 1.7 L Stool Occult Blood Blood Type Antibody Screen Crossmatch S1 S2 Irregular Lungs decreased breath sounds Abd- soft, NT No edema A/P acute respiratory failure Fever, pneumonitis CHF decompensation Aflutter anemia- s/p PRBC yesterday -- COVID negative -- ICU management --s/p cardioversion -- rate control -- continue with meds --broad spectrum antibiotics -- prognosis is guarded -- on pressor support patient is DNR Problem List - Problems (1) Acute on chronic diastolic (congestive) heart failure Code(s): I50.33 - ACUTE ON CHRONIC DIASTOLIC (CONGESTIVE) HEART FAILURE (2) Acute respiratory failure with hypoxia Code(s): J96.01 - ACUTE RESPIRATORY FAILURE WITH HYPOXIA (3) Atrial fibrillation Code(s): I48.91 - UNSPECIFIED ATRIAL FIBRILLATION (4) GERD (gastroesophageal reflux disease) Code(s): K21.9 - GASTRO-ESOPHAGEAL REFLUX DISEASE WITHOUT ESOPHAGITIS (5) HTN (hypertension) Code(s): I10 - ESSENTIAL (PRIMARY) HYPERTENSION Qualifiers: Hypertension type: essential hypertension Qualified Code(s): I10 - Essential (primary) hypertension (6) Suspected 2019 novel coronavirus infection Code(s): Z20.828 - CONTACT W AND EXPOSURE TO [facility] VIRAL COMMUNICABLE DISEASES
--- NOTE | 2019-10-12 12:32 | PN ---
Teaching Attending Note Name of Resident: Rubin Valdes ATTENDING PHYSICIAN STATEMENT I saw and evaluated the patient. I reviewed the resident's note and discussed the case with the resident. I agree with the resident's findings and plan as documented. SUBJECTIVE: Pt seen and examined in the ICU. Remains intubated, sedated. Vented on volume assist control with 50% FiO2, PEEP 8. Pplat 27. OBJECTIVE: Vital Signs Period Temp Pulse Resp BP Sys/Amador Pulse Ox Last 24 Hr 97.2 F-100.4 F 58-108 16-22 93-176/52-91 91-100 Intake & Output 10/09/19 10/10/19 10/11/19 10/12/19 23:59 23:59 23:59 23:59 Intake Total 1301.4 1376.2 410 830 Output Total 5125 032 5430 400 Balance 201.4 476.2 -640 430 Weight 66.5 kg 66.5 kg 66.5 kg 66.4 kg Gen: intubated, sedated Heart: RRR Lung: scattered rhonchi Abd: soft, nontender Ext: + edema CBC, BMP 10/12/19 05:35 10/12/19 05:35 Active Medications Acetaminophen (Tylenol -) 650 mg PO Q6H PRN PRN Reason: FEVER Last Admin: 10/11/19 21:12 Dose: 650 mg Documented by: Acetaminophen (Ofirmev Injection -) 1,000 mg IVPB Q6H PRN PRN Reason: FEVER Stop: 10/12/19 14:13 Last Admin: 10/11/19 14:00 Dose: 1,000 mg Documented by: Albuterol Sulfate (Ventolin Hfa Inhaler -) 2 puff IH Q4H PRN PRN Reason: SHORT OF BREATH/WHEEZING Apixaban (Eliquis -) 5 mg PO BID [facility] Last Admin: 10/12/19 09:19 Dose: 5 mg Documented by: Atorvastatin Calcium (Lipitor -) 40 mg PO [facility] Last Admin: 10/11/19 21:12 Dose: 40 mg Documented by: Chlorhexidine Gluconate (Hibiclens For Decolonization -) 1 applic TP [facility] Last Admin: 10/11/19 21:12 Dose: 1 applic Documented by: Hydrocortisone Sodium Succinate (Solu-Cortef -) 50 mg IVPUSH BID [facility] Last Admin: 10/12/19 09:19 Dose: 50 mg Documented by: Fentanyl (Sublimaze Ivpb) 500 mcg in 100 mls @ 10 mls/hr IVPB TITR MAGI; Protocol Last Admin: 10/12/19 09:19 Dose: 100 mcg/hr, 20 mls/hr Documented by: Midazolam HCl (Midazolam 100mg/100ml-0.9%Nacl) 100 mg in 100 mls @ 1 mls/hr IVPB TITR MAGI; Protocol Last Admin: 10/12/19 01:03 Dose: Not Given Documented by: Norepinephrine Bitartrate (Levophed Bag - Ns) 16,000 mcg in 500 mls @ 9.375 mls/hr IVPB TITR MAGI; Protocol Last Admin: 10/11/19 21:07 Dose: Not Given Documented by: Vasopressin 40 units/ Sodium (Chloride) 100 mls @ 5 mls/hr IVPB ASDIR MAGI; Protocol Last Admin: 10/11/19 11:35 Dose: Not Given Documented by: Propofol (Diprivan -) 1,000,000 mcg in 100 mls @ 11.97 mls/hr IVPB TITR MAGI; Protocol Last Admin: 10/11/19 21:07 Dose: Not Given Documented by: Metoprolol Tartrate (Lopressor Injection -) 2.5 mg IVPUSH Q4H PRN PRN Reason: HYPERTENSION Last Admin: 10/10/19 17:16 Dose: 2.5 mg Documented by: Mirtazapine (Remeron -) 15 mg PO HS [facility] Last Admin: 10/11/19 21:12 Dose: 15 mg Documented by: Pantoprazole Sodium (Protonix Iv) 40 mg IVPUSH DAILY [facility] Last Admin: 10/12/19 09:19 Dose: 40 mg Documented by: Sotalol HCl (Betapace -) 80 mg PO BID [facility] Last Admin: 10/12/19 09:19 Dose: 80 mg Documented by: ASSESSMENT AND PLAN: Acute Hypoxic Respiratory Failure Suspected COVID19 Pneumonia ARDS Sepsis Paroxysmal Atrial Fibrillation CAD s/p CABG Aortic Stenosis s/p AVR HTN Hypercholesterolemia Anemia - continue antibiotics - off pressors, maintain MAP >65 - continue steroids - continue anticoagulation - rate control - titrate FiO2, PEEP to keep SpO2 >90% - monitor Pplat - sedate for vent synchrony - enteral feeds - DVT/GI prophylaxis - continue ICU monitoring - continue discussions regarding goals of care critical care time spent in reviewing chart, evaluating patient and formulating plan 35 min
--- NOTE | 2019-10-12 15:55 | PN ---
Progress Note, Physician Chief Complaint: INTUBATED SEDATED ON VENTILATOR LOW GRADE TEMPS WBC WNL CXR B/L INFILTRATES SPUTUM KLEBSIELLA - Current Medication List Current Medications: Active Medications Acetaminophen (Tylenol -) 650 mg PO Q6H PRN PRN Reason: FEVER Last Admin: 10/11/19 21:12 Dose: 650 mg Documented by: Albuterol Sulfate (Ventolin Hfa Inhaler -) 2 puff IH Q4H PRN PRN Reason: SHORT OF BREATH/WHEEZING Apixaban (Eliquis -) 5 mg PO BID [facility] Last Admin: 10/12/19 09:19 Dose: 5 mg Documented by: Atorvastatin Calcium (Lipitor -) 40 mg PO HS [facility] Last Admin: 10/11/19 21:12 Dose: 40 mg Documented by: Chlorhexidine Gluconate (Hibiclens For Decolonization -) 1 applic TP HS [facility] Last Admin: 10/11/19 21:12 Dose: 1 applic Documented by: Hydrocortisone Sodium Succinate (Solu-Cortef -) 50 mg IVPUSH BID [facility] Last Admin: 10/12/19 09:19 Dose: 50 mg Documented by: Fentanyl (Sublimaze Ivpb) 500 mcg in 100 mls @ 10 mls/hr IVPB TITR [facility]; Protocol Last Admin: 10/12/19 09:19 Dose: 100 mcg/hr, 20 mls/hr Documented by: Midazolam HCl (Midazolam 100mg/100ml-0.9%Nacl) 100 mg in 100 mls @ 1 mls/hr IVPB TITR [facility]; Protocol Last Admin: 10/12/19 01:03 Dose: Not Given Documented by: Norepinephrine Bitartrate (Levophed Bag - Ns) 16,000 mcg in 500 mls @ 9.375 mls/hr IVPB TITR [facility]; Protocol Last Admin: 10/11/19 21:07 Dose: Not Given Documented by: Vasopressin 40 units/ Sodium (Chloride) 100 mls @ 5 mls/hr IVPB ASDIR [facility]; Protocol Last Admin: 10/11/19 11:35 Dose: Not Given Documented by: Propofol (Diprivan -) 1,000,000 mcg in 100 mls @ 11.97 mls/hr IVPB TITR [facility]; Protocol Last Admin: 10/11/19 21:07 Dose: Not Given Documented by: Metoprolol Tartrate (Lopressor Injection -) 2.5 mg IVPUSH Q4H PRN PRN Reason: HYPERTENSION Last Admin: 10/10/19 17:16 Dose: 2.5 mg Documented by: Mirtazapine (Remeron -) 15 mg PO HS [facility] Last Admin: 10/11/19 21:12 Dose: 15 mg Documented by: Pantoprazole Sodium (Protonix Iv) 40 mg IVPUSH DAILY [facility] Last Admin: 10/12/19 09:19 Dose: 40 mg Documented by: Sotalol HCl (Betapace -) 80 mg PO BID [facility] Last Admin: 10/12/19 09:19 Dose: 80 mg Documented by: - Objective Vital Signs: Vital Signs Temperature 98.9 F 10/12/19 14:00 Pulse Rate 107 H 10/12/19 14:00 Respiratory Rate 18 10/12/19 14:00 Blood Pressure 157/70 10/12/19 14:00 O2 Sat by Pulse Oximetry (%) 99 10/12/19 14:00 Constitutional: Yes: No Distress Cardiovascular: Yes: Regular Rate and Rhythm, S1, S2 Respiratory: Yes: Mechanically Ventilated Gastrointestinal: Yes: Normal Bowel Sounds, Soft. No: Tenderness Labs: CBC, BMP 10/12/19 05:35 10/12/19 05:35 INR, PTT INR 1.97 (0.83-1.09) H 09/23/19 18:40 Fibrinogen > 500.0 mg/dL (238-498) H 10/08/19 06:30 Assessment/Plan BILATERAL INFILTRATES ? PNEUMONITIS ? CHF RESP FAILURE S/P TAVR COVID -19 (-) X5 CONTINUE EMPIRIC ZOSYN/VANCO VENTILATORY SUPPORT
[2019-10-12] MEDS: PROPOFOL 1,000,000 MCG/100 ML VIAL IVPB SCH (16:04)
[2019-10-12] MEDS: VANCOMYCIN 1 GRAM (PRE-DOCKED) 1,000 MG/250 ML BAG IVPB SCH (17:17)
[2019-10-12] MEDS ORDERED: METOPROLOL TARTRATE 5 MG/5 ML VIAL IVPUSH ONE (18:20)
[2019-10-12] MEDS: METOPROLOL TARTRATE 5 MG/5 ML VIAL IVPUSH PRN (19:34)
[2019-10-12] MEDS: ACETAMINOPHEN 325 MG TABLET (FP) PO PRN (20:04)
[2019-10-12] MEDS: MIRTAZAPINE 15 MG TABLET (FP) PO SCH (21:30)
[2019-10-12] MEDS: ATORVASTATIN CA 40 MG TABLET (FP) PO SCH (21:30)
[2019-10-12] MEDS: CHLORHEXIDINE GLUCONATE 4% CLEANSER FOR DECOLONIZATION TP SCH (21:31)
--- NOTE | 2019-10-12 22:08 | PN ---
Physical Exam: SUBJECTIVE: Patient seen and examined. Pt sedated and intubated. OBJECTIVE: GENERAL: The patient is sedated and intubated. HEAD: Normal with no signs of trauma. ENT: Ears normal, nares patent, pt intubated NECK: Trachea midline. LUNGS: Rhonchi on bilateral lung olvera HEART: Regular rate and rhythm ABDOMEN: Soft, nontender, nondistended, normoactive bowel sounds EXTREMITIES: 2+ pulses, bilateral lower ext edema SKIN: Warm, dry, normal turgor, no rashes or lesions noted Vital Signs Period Temp Pulse Resp BP Sys/Amador Pulse Ox Last 24 Hr 97.2 F-99.8 F 73-154 16-21 93-176/52-98 91-100 Laboratory Results - last 24 hr 10/11/19 10/12/19 10/12/19 19:58 05:35 05:35 WBC 9.3 RBC 2.91 L Hgb 8.6 L Hct 26.5 L D MCV 90.8 MCH 29.6 MCHC 32.5 RDW 16.1 H Plt Count 127 L MPV 8.7 Sodium 149 H Potassium 4.5 Chloride 113 H Carbon Dioxide 29 Anion Gap 7 L BUN 49.0 H Creatinine 0.9 Est GFR (CKD-EPI)AfAm 95.15 Est GFR (CKD-EPI)NonAf 82.09 Random Glucose 261 H Calcium 7.1 L Phosphorus 2.5 Magnesium 2.8 H Total Bilirubin 0.6 AST 18 ALT 26 Alkaline Phosphatase 65 Total Protein 5.4 L Albumin 1.7 L Stool Occult Blood Negative Active Medications Generic Name Dose Route Start Last Admin Trade Name Freq PRN Reason Stop Dose Admin Acetaminophen 650 mg 10/06/19 00:25 10/12/19 20:04 Tylenol - PO 650 mg Q6H PRN Administration FEVER Albuterol Sulfate 2 puff 10/06/19 00:25 Ventolin Hfa Inhaler - IH Q4H PRN SHORT OF BREATH/WHEEZING Apixaban 5 mg 10/06/19 10:00 10/12/19 21:30 Eliquis - PO 5 mg BID MAGI Administration Atorvastatin Calcium 40 mg 10/06/19 22:00 10/12/19 21:30 Lipitor - PO 40 mg HS MAGI Administration Chlorhexidine Gluconate 1 applic 10/06/19 22:00 10/12/19 21:31 Hibiclens For Decolonization - TP 1 applic HS MAGI Administration Hydrocortisone Sodium Succinate 50 mg 10/11/19 22:00 10/12/19 21:31 Solu-Cortef - IVPUSH 50 mg BID MAGI Administration Fentanyl 500 mcg in 100 mls @ 10 mls/hr 10/06/19 00:45 10/12/19 21:31 Sublimaze Ivpb IVPB 100 mcg/hr TITR MAGI 20 mls/hr Administration Protocol 50 MCG/HR Midazolam HCl 100 mg in 100 mls @ 1 mls/hr 10/06/19 00:45 10/12/19 01:03 Midazolam 100mg/100ml-0.9%Nacl IVPB Not Given TITR [facility]I Protocol 1 MG/HR Norepinephrine Bitartrate 16,000 mcg in 500 mls @ 9.375 mls/hr 10/06/19 07:45 10/11/19 21:07 Levophed Bag - Ns IVPB Not Given TITR [facility] Protocol 5 MCG/MIN Vasopressin 40 units/ Sodium 100 mls @ 5 mls/hr 10/06/19 09:15 10/11/19 11:35 Chloride IVPB Not Given ASDIR MAGI Protocol 2 UNITS/HR Propofol 1,000,000 mcg in 100 mls @ 11.97 mls/hr 10/11/19 14:30 10/12/19 16:04 Diprivan - IVPB Not Given TITR [facility]I Protocol 30 MCG/KG/MIN Piperacillin Sod/Tazobactam 50 mls @ 100 mls/hr 10/12/19 16:15 10/12/19 16:17 Sod 3.375 gm/ Dextrose IVPB 100 mls/hr Q8H-IV [facility]I Administration Protocol Vancomycin HCl 1,000 mg in 250 mls @ 166.667 mls/hr 10/12/19 16:00 10/12/19 17:17 Vancomycin (Pre-Docked) IVPB 166.667 mls/hr Q12H [facility]I Administration Protocol Metoprolol Tartrate 5 mg 10/12/19 21:13 Lopressor Injection - IVPUSH Q4H PRN TACHYCARDIA Mirtazapine 15 mg 10/06/19 22:00 10/12/19 21:30 Remeron - PO 15 mg HS MAGI Administration Pantoprazole Sodium 40 mg 10/06/19 11:15 10/12/19 09:19 Protonix Iv IVPUSH 40 mg DAILY [facility] Administration Sotalol HCl 80 mg 10/10/19 22:30 10/12/19 21:30 Betapace - PO 80 mg BID MAGI Administration ASSESSMENT/PLAN: 78 yo male pmh afib, angina, chf, htn, hld, gi bleed recent admision 09/19-09/21 for covid, afib, and acs in ICU for acute hypoxic resp failure due to possible COVID pneumonitis vs ARDS. Neuro - sedated on midazolam 1 mls/h, propofol (added 10/10) 30 mcg/kg. min, fentanyl 10mls/hr - Held mirtazapine CV - afib, chf, htn, hld. Persistent aflutter with periods rvr s/p cardioversion - eliquis 5mg bid - metroprolol 2.5 mg q 4 hr -sotalol 80 mg PO BID check QTc below 500 - Off pressors maintain MAP>65 Pulm - Possible COvid pneumonitis. Acute hypoxic resp failure due to ARDS - Continue Hydrocortisone 50mg q 12hr - Intubated on 10/04 due to resp failure - rate control - titrate FiO2, PEEP to keep SpO2 >90% - monitor Pplat - sedate for vent synchrony ID - Possible COVID pneumonitis - c/w IV tylenol PRN for fevers - trend inflammatory markers. Currently increasing trend. - f/u cultures. pending viral panel, rpt covid negative. pending legionella - c/w vanc & zosyn Renal No acute issues -Monitor I/O's, Cr and electrolytes Heme - stool occult negative - Hgb back up to 8.6 GI - h/o GI bleed - no acute issues - c/w protonix Endo - dietary was consulted for elevated glucose. Pt feeds were switched LTD -Smiley 10/04 - RIJ 10/05 - intubation 10/04 Prophylaxis - DVT- SCD/ eliquis - GI- protonix Visit type - Emergency Visit Emergency Visit: Yes ED Registration Date: 09/23/19 Care time: The patient presented to the Emergency Department on the above date and was hospitalized for further evaluation of their emergent condition. - New Patient This patient is new to me today: No - Critical Care Critical Care patient: Yes Total Critical Care Time (in minutes): 36 Critical Care Statement: The care of this patient involved high complexity decision making to prevent further life threatening deterioration of the patient's condition and/or to evaluate & treat vital organ system(s) failure or risk of failure. - Medication Review Med list reviewed for High Risk Meds patients 65 and older: Yes ATTENDING PHYSICIAN STATEMENT I saw and evaluated the patient. I reviewed the resident's note and discussed the case with the resident. I agree with the resident's findings and plan as documented. SUBJECTIVE: OBJECTIVE: ASSESSMENT AND PLAN:
[2019-10-13] MEDS ORDERED: DEXTROSE 5%-WATER - 50 ML IVPB ONE ×3 (01:35→16:37)
[2019-10-13] MEDS ORDERED: PIPERACILLIN/TAZOBACTAM 3.375 GM VIAL IVPB ONE ×3 (01:35→16:37)
[2019-10-13] MEDS: PIPERACILLIN/TAZOB 3.375 GM 3.375 GM in DEXTROSE 5%-WATER - 50 ML IVPB SCH ×3 (01:36→17:16)
[2019-10-13] MEDS: FENTANYL IVPB 500 MCG/100 ML BAG IVPB SCH (02:45)
[2019-10-13] MEDS: VANCOMYCIN 1 GRAM (PRE-DOCKED) 1,000 MG/250 ML BAG IVPB SCH ×2 (04:27→15:41)
[2019-10-13] MEDS: METOPROLOL TARTRATE 5 MG/5 ML VIAL IVPUSH PRN ×4 (06:02→23:25)
[2019-10-13 06:26] LABS: ARTERIAL BLD GAS O2 SATURATION 98.6 mmHg (95-98); ARTERIAL BLOOD GAS BASE EXCESS 2.7 mmol/L (-2-2); ARTERIAL BLOOD GAS PO2 125.7 mmHg (80-100); ARTERIAL BLOOD GAS pH 7.446 (7.350-7.450)
[2019-10-13 06:37] LABS: VENT MODE A/C; VENT RATE 18
[2019-10-13 07:18] LABS: BASO % 0.1 % (0-2.0); EOS % 0.1 % (0-4.5); HEMATOCRIT 25.8 % (35.4-49); HEMOGLOBIN 8.4 GM/dL (11.7-16.9); LYMPH % 9.7 % (8-40); MCH 29.9 pg (25.7-33.7); MCHC 32.6 g/dl (32.0-35.9); MEAN CELL VOLUME 91.8 fl (80-96); MONO % 2.1 % (3.8-10.2); PLATELET COUNT 125 K/MM3 (134-434); RBC 2.81 M/mm3 (4.00-5.60); RDW 16.3 % (11.9-15.9); WHITE BLOOD COUNT 5.1 K/mm3 (4.0-10.0)
[2019-10-13 07:34] LABS: ALBUMIN 1.6 g/dl (3.4-5.0); BILIRUBIN,TOTAL 0.9 mg/dL (0.2-1); CREATININE 0.7 mg/dL (0.55-1.3); POTASSIUM 4.4 mmol/L (3.5-5.1); TOT PROT 5.2 g/dl (6.4-8.2)
[2019-10-13] MEDS ORDERED: METOPROLOL TARTRATE 5 MG/5 ML VIAL IVPUSH ONE (07:34)
[2019-10-13 08:02] LABS: CALCIUM 6.8 mg/dL (8.5-10.1)
[2019-10-13] MEDS ORDERED: PT OWN MED DRAWER 7, Y5N ONE ×3 (08:59→22:44)
[2019-10-13] MEDS: SOTALOL HCL 80 MG TABLET (FP) PO SCH ×2 (09:06→22:26)
[2019-10-13] MEDS: HYDROCORTISONE SOD SUCCINATE 100 MG/2 ML VIAL IVPUSH SCH (09:06)
[2019-10-13] MEDS: APIXABAN 5 MG TABLET PO SCH ×2 (09:07→21:30)
[2019-10-13] MEDS: PANTOPRAZOLE SODIUM 40 MG VIAL IVPUSH SCH (09:07)
--- NOTE | 2019-10-13 09:24 | PN ---
Progress Note, Physician Chief Complaint: Events noted Remains in ICU on mechanical ventilator History of Present Illness: Patient was seen and examined. Awake and alert. Chart was reviewed Tachycardic with sinus and APCs - Current Medication List Current Medications: Active Medications Acetaminophen (Tylenol -) 650 mg PO Q6H PRN PRN Reason: FEVER Last Admin: 10/12/19 20:04 Dose: 650 mg Documented by: Albuterol Sulfate (Ventolin Hfa Inhaler -) 2 puff IH Q4H PRN PRN Reason: SHORT OF BREATH/WHEEZING Apixaban (Eliquis -) 5 mg PO BID [facility] Last Admin: 10/13/19 09:07 Dose: 5 mg Documented by: Atorvastatin Calcium (Lipitor -) 40 mg PO HS [facility] Last Admin: 10/12/19 21:30 Dose: 40 mg Documented by: Chlorhexidine Gluconate (Hibiclens For Decolonization -) 1 applic TP HS [facility] Last Admin: 10/12/19 21:31 Dose: 1 applic Documented by: Hydrocortisone Sodium Succinate (Solu-Cortef -) 50 mg IVPUSH BID [facility] Last Admin: 10/13/19 09:06 Dose: 50 mg Documented by: Norepinephrine Bitartrate (Levophed Bag - Ns) 16,000 mcg in 500 mls @ 9.375 mls/hr IVPB TITR [facility]; Protocol Last Admin: 10/11/19 21:07 Dose: Not Given Documented by: Vasopressin 40 units/ Sodium (Chloride) 100 mls @ 5 mls/hr IVPB ASDIR [facility]; Protocol Last Admin: 10/11/19 11:35 Dose: Not Given Documented by: Propofol (Diprivan -) 1,000,000 mcg in 100 mls @ 11.97 mls/hr IVPB TITR [facility]; Pr otocol Last Admin: 10/12/19 16:04 Dose: Not Given Documented by: Piperacillin Sod/Tazobactam (Sod 3.375 gm/ Dextrose) 50 mls @ 100 mls/hr IVPB Q8H-IV [facility]; Protocol Last Admin: 10/13/19 09:06 Dose: 100 mls/hr Documented by: Vancomycin HCl (Vancomycin (Pre-Docked)) 1,000 mg in 250 mls @ 166.667 mls/hr IVPB Q12H [facility]; Protocol Last Admin: 10/13/19 04:27 Dose: 166.667 mls/hr Documented by: Fentanyl (Sublimaze Ivpb) 500 mcg in 100 mls @ 1 mls/hr IVPB TITR [facility]; Protocol Last Admin: 10/13/19 02:45 Dose: 100 mcg/hr, 20 mls/hr Documented by: Metoprolol Tartrate (Lopressor Injection -) 5 mg IVPUSH Q4H PRN PRN Reason: TACHYCARDIA Last Admin: 10/13/19 06:02 Dose: 5 mg Documented by: Mirtazapine (Remeron -) 15 mg PO HS [facility] Last Admin: 10/12/19 21:30 Dose: 15 mg Documented by: Pantoprazole Sodium (Protonix Iv) 40 mg IVPUSH DAILY [facility] Last Admin: 10/13/19 09:07 Dose: 40 mg Documented by: Sotalol HCl (Betapace -) 80 mg PO BID [facility] Last Admin: 10/13/19 09:06 Dose: 80 mg Documented by: - Objective Vital Signs: Vital Signs Temperature 98.4 F 10/13/19 06:00 Pulse Rate 114 H 10/13/19 08:00 Respiratory Rate 20 10/13/19 08:00 Blood Pressure 136/66 10/13/19 08:00 O2 Sat by Pulse Oximetry (%) 114 H 10/13/19 08:00 Cardiovascular: Yes: Pulse Irregular, S1, S2 Respiratory: Yes: Diminished, Mechanically Ventilated Gastrointestinal: Yes: Normal Bowel Sounds, Soft. No: Tenderness Edema: No Labs: CBC, BMP 10/13/19 05:40 10/13/19 05:40 Problem List - Problems (1) Acute on chronic diastolic (congestive) heart failure Code(s): I50.33 - ACUTE ON CHRONIC DIASTOLIC (CONGESTIVE) HEART FAILURE (2) Acute respiratory failure with hypoxia Code(s): J96.01 - ACUTE RESPIRATORY FAILURE WITH HYPOXIA (3) Aortic aneurysm Code(s): I71.9 - AORTIC ANEURYSM OF UNSPECIFIED SITE, WITHOUT RUPTURE (4) Atrial flutter Code(s): I48.92 - UNSPECIFIED ATRIAL FLUTTER Qualifiers: Atrial flutter type: typical Qualified Code(s): I48.3 - Typical atrial flut ter (5) CAD (coronary artery disease) Code(s): I25.10 - ATHSCL HEART DISEASE OF [place] CORONARY ARTERY W/O ANG PCTRS Qualifiers: Coronary Disease-Associated Artery/Lesion type: [place] artery [place] vs. transplanted heart: [place] heart Associated angina: without angina Qualified Code(s): I25.10 - Atherosclerotic heart disease of [place] coronary artery without angina pectoris (6) GERD (gastroesophageal reflux disease) Code(s): K21.9 - GASTRO-ESOPHAGEAL REFLUX DISEASE WITHOUT ESOPHAGITIS (7) HTN (hypertension) Code(s): I10 - ESSENTIAL (PRIMARY) HYPERTENSION Qualifiers: Hypertension type: essential hypertension Qualified Code(s): I10 - Essential (primary) hypertension (8) Hypercholesterolemia Code(s): E78.00 - PURE HYPERCHOLESTEROLEMIA, UNSPECIFIED (9) S/P AVR (aortic valve replacement) Code(s): Z95.2 - PRESENCE OF PROSTHETIC HEART VALVE (10) S/P left atrial appendage ligation Code(s): Z98.890 - OTHER SPECIFIED POSTPROCEDURAL STATES (11) Suspected COVID-19 virus infection Code(s): Z20.828 - CONTACT W AND EXPOSURE TO OT VIRAL COMMUNICABLE DISEASES Assessment/Plan 1. Recurrent acute hypoxic respiratory failure related to bronchopneumonia with probable sepsis syndrome, coronavirus/COVID 19 - pneumonitis - respiratory failure on mechanical ventilation 2. Clinical presentation is consistent with chronic class I-II NYHA classification LV diastolic heart failure, no evidence of acute decompensation 3. Paroxysmal atrial flutter with periods rapid ventricular response s/p DCCV to initially MAT now ?sinus with APC 4. CAD post CABG with evidence of demand ischemia related to the above-noted clinical presentation angina pectoris 5. Aortic valve stenosis post SAVR/bio-prosthesis with LA appendage ligation 6. Hypertensive cardiovascular disease 7. Hypercholesterolemia 8. Anemia PLAN: 1. Mechanical ventilator as per critical care team. 2. Wean FIO2 and PEEP to maintain saO2, bronchodilator, IV steroids with GI protection, empiric antibiotic course 3. Continue sotalol 80 mg BID with QTc check and on Lopressor 2.5 IV q4 PRN. May also consider Cardizem IV PRN 4. Continue Atorvastatin 40 mg QD and Eliquis 5 mg BID as tolerated 5. Monitor renal function and electrolytes DNR Supportive care. Goal of care? Guarded Phuc Dillon MD
--- NOTE | 2019-10-13 10:58 | PN ---
Progress Note, Physician Chief Complaint: INTUBATED SEDATED ON VENTILATOR AFEBRILE WBC WNL CXR B/L INFILTRATES SPUTUM KLEBSIELLA - Current Medication List Current Medications: Active Medications Acetaminophen (Tylenol -) 650 mg PO Q6H PRN PRN Reason: FEVER Last Admin: 10/12/19 20:04 Dose: 650 mg Documented by: Albuterol Sulfate (Ventolin Hfa Inhaler -) 2 puff IH Q4H PRN PRN Reason: SHORT OF BREATH/WHEEZING Apixaban (Eliquis -) 5 mg PO BID [facility] Last Admin: 10/13/19 09:07 Dose: 5 mg Documented by: Atorvastatin Calcium (Lipitor -) 40 mg PO HS [facility] Last Admin: 10/12/19 21:30 Dose: 40 mg Documented by: Chlorhexidine Gluconate (Hibiclens For Decolonization -) 1 applic TP HS [facility] Last Admin: 10/12/19 21:31 Dose: 1 applic Documented by: Hydrocortisone Sodium Succinate (Solu-Cortef -) 50 mg IVPUSH BID [facility] Last Admin: 10/13/19 09:06 Dose: 50 mg Documented by: Norepinephrine Bitartrate (Levophed Bag - Ns) 16,000 mcg in 500 mls @ 9.375 mls/hr IVPB TITR [facility]; Protocol Last Admin: 10/11/19 21:07 Dose: Not Given Documented by: Vasopressin 40 units/ Sodium (Chloride) 100 mls @ 5 mls/hr IVPB ASDIR [facility]; Protocol Last Admin: 10/11/19 11:35 Dose: Not Given Documented by: Propofol (Diprivan -) 1,000,000 mcg in 100 mls @ 11.97 mls/hr IVPB TITR [facility]; Protocol Last Admin: 10/12/19 16:04 Dose: Not Given Documented by: Piperacillin Sod/Tazobactam (Sod 3.375 gm/ Dextrose) 50 mls @ 100 mls/hr IVPB Q8H-IV [facility]; Protocol Last Admin: 10/13/19 09:06 Dose: 100 mls/hr Documented by: Vancomycin HCl (Vancomycin (Pre-Docked)) 1,000 mg in 250 mls @ 166.667 mls/hr IVPB Q12H [facility]; Protocol Last Admin: 10/13/19 04:27 Dose: 166.667 mls/hr Documented by: Fentanyl (Sublimaze Ivpb) 500 mcg in 100 mls @ 1 mls/hr IVPB TITR [facility]; Protocol Last Admin: 10/13/19 02:45 Dose: 100 mcg/hr, 20 mls/hr Documented by: Metoprolol Tartrate (Lopressor Injection -) 5 mg IVPUSH Q4H PRN PRN Reason: TACHYCARDIA Last Admin: 10/13/19 06:02 Dose: 5 mg Documented by: Mirtazapine (Remeron -) 15 mg PO HS [facility] Last Admin: 10/12/19 21:30 Dose: 15 mg Documented by: Pantoprazole Sodium (Protonix Iv) 40 mg IVPUSH DAILY [facility] Last Admin: 10/13/19 09:07 Dose: 40 mg Documented by: Sotalol HCl (Betapace -) 80 mg PO BID [facility] Last Admin: 10/13/19 09:06 Dose: 80 mg Documented by: - Objective Vital Signs: Vital Signs Temperature 99 F 10/13/19 10:00 Pulse Rate 110 H 10/13/19 10:00 Respiratory Rate 18 10/13/19 10:00 Blood Pressure 138/68 10/13/19 10:00 O2 Sat by Pulse Oximetry (%) 100 10/13/19 10:00 Constitutional: Yes: No Distress Eyes: Yes: Conjunctiva Clear Cardiovascular: Yes: Regular Rate and Rhythm, Tachycardia, S1, S2 Respiratory: Yes: Mechanically Ventilated Gastrointestinal: Yes: Normal Bowel Sounds, Soft. No: Tenderness Labs: CBC, BMP 10/13/19 05:40 10/13/19 05:40 INR, PTT INR 1.97 (0.83-1.09) H 09/23/19 18:40 Fibrinogen > 500.0 mg/dL (238-498) H 10/08/19 06:30 Assessment/Plan BILATERAL INFILTRATES ? PNEUMONITIS ? CHF RESP FAILURE S/P TAVR COVID -19 (-) X5 CONTINUE EMPIRIC ZOSYN/VANCO VENTILATORY SUPPORT
--- NOTE | 2019-10-13 11:59 | PN ---
Progress Note (short form) - Note Progress Note: remains intubated on pressors Vital Signs - 24 hr 10/12/19 10/12/19 10/12/19 12:00 12:10 14:00 Temperature 98.9 F Pulse Rate 92 H 107 H Respiratory 18 18 18 Rate Blood Pressure 155/87 157/70 O2 Sat by Pulse 96 99 Oximetry (%) 10/12/19 10/12/19 10/12/19 16:00 16:10 17:53 Temperature 97.6 F Pulse Rate 154 H 108 H Respiratory 18 21 H 18 Rate Blood Pressure 173/83 H 158/98 O2 Sat by Pulse 96 97 97 Oximetry (%) 10/12/19 10/12/19 10/12/19 18:31 19:34 20:00 Temperature 99.8 F H Pulse Rate 109 H 140 H 120 H Respiratory 18 18 Rate Blood Pressure 151/81 151/81 140/60 O2 Sat by Pulse 98 98 Oximetry (%) 10/12/19 10/12/19 10/12/19 20:20 20:55 22:00 Temperature 99.6 F Pulse Rate 105 H 101 H Respiratory 18 18 18 Rate Blood Pressure 143/79 O2 Sat by Pulse 98 98 98 Oximetry (%) 10/13/19 10/13/19 10/13/19 00:00 00:14 02:00 Temperature 97.3 F L Pulse Rate 89 92 H Respiratory 19 18 21 H Rate Blood Pressure 122/54 L 135/55 L O2 Sat by Pulse 97 97 98 Oximetry (%) 10/13/19 10/13/19 10/13/19 02:02 04:00 04:25 Temperature Pulse Rate 106 H 118 H Respiratory 21 H 21 H 18 Rate Blood Pressure 139/73 O2 Sat by Pulse 98 98 100 Oximetry (%) 10/13/19 10/13/19 10/13/19 06:00 06:02 07:30 Temperature 98.4 F Pulse Rate 130 H 130 H 144 H Respiratory 21 H Rate Blood Pressure 128/58 L 128/58 L 146/89 O2 Sat by Pulse 99 Oximetry (%) 10/13/19 10/13/19 10/13/19 08:00 08:10 09:00 Temperature Pulse Rate 114 H Respiratory 20 18 18 Rate Blood Pressure 136/66 O2 Sat by Pulse 114 H 100 100 Oximetry (%) 10/13/19 10/13/19 10:00 11:46 Temperature 99 F Pulse Rate 110 H 122 H Respiratory 18 Rate Blood Pressure 138/68 187/85 H O2 Sat by Pulse 100 Oximetry (%) Current Medications Generic Name Dose Route Start Last Admin Trade Name Freq PRN Reason Stop Dose Admin Acetaminophen 650 mg 10/06/19 00:25 10/12/19 20:04 Tylenol - PO 650 mg Q6H PRN Administration FEVER Albuterol Sulfate 2 puff 10/06/19 00:25 Ventolin Hfa Inhaler - IH Q4H PRN SHORT OF BREATH/WHEEZING Apixaban 5 mg 10/06/19 10:00 10/13/19 09:07 Eliquis - PO 5 mg BID MAGI Administration Atorvastatin Calcium 40 mg 10/06/19 22:00 10/12/19 21:30 Lipitor - PO 40 mg HS MAGI Administration Chlorhexidine Gluconate 1 applic 10/06/19 22:00 10/12/19 21:31 Hibiclens For Decolonization - TP 1 applic HS MAGI Administration Hydrocortisone Sodium Succinate 50 mg 10/11/19 22:00 10/13/19 09:06 Solu-Cortef - IVPUSH 50 mg BID MAGI Administration Norepinephrine Bitartrate 16,000 mcg in 500 mls @ 9.375 mls/hr 10/06/19 07:45 10/11/19 21:07 Levophed Bag - Ns IVPB Not Given TITR MAGI Protocol 5 MCG/MIN Vasopressin 40 units/ Sodium 100 mls @ 5 mls/hr 10/06/19 09:15 10/11/19 11:35 Chloride IVPB Not Given ASDIR MAGI Protocol 2 UNITS/HR Propofol 1,000,000 mcg in 100 mls @ 11.97 mls/hr 10/11/19 14:30 10/12/19 16:04 Diprivan - IVPB Not Given TITR MAGI Protocol 30 MCG/KG/MIN Piperacillin Sod/Tazobactam 50 mls @ 100 mls/hr 10/12/19 16:15 10/13/19 09:06 Sod 3.375 gm/ Dextrose IVPB 100 mls/hr Q8H-IV MAGI Administration Protocol Vancomycin HCl 1,000 mg in 250 mls @ 166.667 mls/hr 10/12/19 16:00 10/13/19 04:27 Vancomycin (Pre-Docked) IVPB 166.667 mls/hr Q12H [facility]I Administration Protocol Fentanyl 500 mcg in 100 mls @ 1 mls/hr 10/13/19 02:30 10/13/19 02:45 Sublimaze Ivpb IVPB 100 mcg/hr TITR MAGI 20 mls/hr Administration Protocol 5 MCG/HR Metoprolol Tartrate 5 mg 10/12/19 21:13 10/13/19 11:46 Lopressor Injection - IVPUSH 5 mg Q4H PRN Administration TACHYCARDIA Mirtazapine 15 mg 10/06/19 22:00 10/12/19 21:30 Remeron - PO 15 mg HS MAGI Administration Pantoprazole Sodium 40 mg 10/06/19 11:15 10/13/19 09:07 Protonix Iv IVPUSH 40 mg DAILY MAGI Administration Sotalol HCl 80 mg 10/10/19 22:30 10/13/19 09:06 Betapace - PO 80 mg BID MAGI Administration Laboratory Results - last 24 hr 10/13/19 10/13/19 10/13/19 05:15 05:40 05:40 WBC 5.1 RBC 2.81 L Hgb 8.4 L Hct 25.8 L MCV 91.8 MCH 29.9 MCHC 32.6 RDW 16.3 H Plt Count 125 L MPV 9.0 Absolute Neuts (auto) 4.5 Neutrophils % 88.0 H Lymphocytes % 9.7 D Monocytes % 2.1 L Eosinophils % 0.1 D Basophils % 0.1 Nucleated RBC % 1 H ESR D-Dimer Anticoagulation Therapy No Result Required. Puncture Site No Result Required. Patient Temperature No Result Required. ABG pH 7.446 ABG pCO2 40.10 ABG pO2 125.7 H ABG HCO3 27.0 ABG O2 Sat (Measured) 98.6 H ABG O2 Content No Result Required. ABG Base Excess 2.7 H Polo Test No Result Required. Patient On Oxygen Yes O2 Delivery Device Vent Oxygen Flow Rate 50% Vent Mode A/c Vent Rate 18 Mechanical Rate Yes PEEP 8.0 Pressure Support Vent 450 Sodium 145 Potassium 4.4 Chloride 112 H Carbon Dioxide 30 Anion Gap 3 L BUN 38.0 H Creatinine 0.7 Est GFR (CKD-EPI)AfAm 105.50 Est GFR (CKD-EPI)NonAf 91.03 Random Glucose 251 H Calcium 6.8 L* Ferritin 1391.3 H Total Bilirubin 0.9 AST 15 ALT 20 Alkaline Phosphatase 61 LD Total C-Reactive Protein Total Protein 5.2 L Albumin 1.6 L 10/13/19 10/13/19 10/13/19 05:40 05:40 05:40 WBC RBC Hgb Hct MCV MCH MCHC RDW Plt Count MPV Absolute Neuts (auto) Neutrophils % Lymphocytes % Monocytes % Eosinophils % Basophils % Nucleated RBC % ESR 116 H D-Dimer 1775 H Anticoagulation Therapy Puncture Site Patient Temperature ABG pH ABG pCO2 ABG pO2 ABG HCO3 ABG O2 Sat (Measured) ABG O2 Content ABG Base Excess Polo Test Patient On Oxygen O2 Delivery Device Oxygen Flow Rate Vent Mode Vent Rate Mechanical Rate PEEP Pressure Support Vent Sodium Potassium Chloride Carbon Dioxide Anion Gap BUN Creatinine Est GFR (CKD-EPI)AfAm Est GFR (CKD-EPI)NonAf Random Glucose Calcium Ferritin Total Bilirubin AST ALT Alkaline Phosphatase LD Total 466 H C-Reactive Protein 7.3 H Total Protein Albumin S1 S2 Irregular Lungs decreased breath sounds Abd- soft, NT No edema A/P acute respiratory failure Fever, pneumonitis CHF decompensation Aflutter anemia- s/p PRBC yesterday -- COVID negative -- ICU management --s/p cardioversion -- rate control -- continue with meds --broad spectrum antibiotics -- prognosis is guarded -- on pressor support patient is DNR Problem List - Problems (1) Acute on chronic diastolic (congestive) heart failure Code(s): I50.33 - ACUTE ON CHRONIC DIASTOLIC (CONGESTIVE) HEART FAILURE (2) Acute respiratory failure with hypoxia Code(s): J96.01 - ACUTE RESPIRATORY FAILURE WITH HYPOXIA (3) Atrial fibrillation Code(s): I48.91 - UNSPECIFIED ATRIAL FIBRILLATION (4) GERD (gastroesophageal reflux disease) Code(s): K21.9 - GASTRO-ESOPHAGEAL REFLUX DISEASE WITHOUT ESOPHAGITIS (5) HTN (hypertension) Code(s): I10 - ESSENTIAL (PRIMARY) HYPERTENSION Qualifiers: Hypertension type: essential hypertension Qualified Code(s): I10 - Essential (primary) hypertension (6) Suspected 2019 novel coronavirus infection Code(s): Z20.828 - CONTACT W AND EXPOSURE TO OTH VIRAL COMMUNICABLE DISEASES
--- NOTE | 2019-10-13 13:17 | PN ---
Teaching Attending Note Name of Resident: Rubin Valdes ATTENDING PHYSICIAN STATEMENT I saw and evaluated the patient. I reviewed the resident's note and discussed the case with the resident. I agree with the resident's findings and plan as documented. SUBJECTIVE: Pt seen and examined in the ICU. Remains intubated, sedated. Vented on volume assist control with 50% FiO2, PEEP 8. Pplat 30. OBJECTIVE: Vital Signs Period Temp Pulse Resp BP Sys/Amador Pulse Ox Last 24 Hr 97.3 F-99.8 F 89-154 18-23 122-187/54-98 96-114 Intake & Output 10/10/19 10/11/19 10/12/19 10/13/19 23:59 23:59 23:59 23:59 Intake Total 1376.2 410 1290 880 Output Total 900 1050 850 700 Balance 476.2 -640 440 180 Weight 66.5 kg 66.5 kg 66.4 kg 67.1 kg Gen: intubated, sedated Heart: RRR Lung: scattered rhonchi Abd: soft, nontender Ext: + edema CBC, BMP 10/13/19 05:40 10/13/19 05:40 Active Medications Acetaminophen (Tylenol -) 650 mg PO Q6H PRN PRN Reason: FEVER Last Admin: 10/12/19 20:04 Dose: 650 mg Documented by: Albuterol Sulfate (Ventolin Hfa Inhaler -) 2 puff IH Q4H PRN PRN Reason: SHORT OF BREATH/WHEEZING Apixaban (Eliquis -) 5 mg PO BID [facility] Last Admin: 10/13/19 09:07 Dose: 5 mg Documented by: Atorvastatin Calcium (Lipitor -) 40 mg PO HS [facility] Last Admin: 10/12/19 21:30 Dose: 40 mg Documented by: Chlorhexidine Gluconate (Hibiclens For Decolonization -) 1 applic TP HS [facility] Last Admin: 10/12/19 21:31 Dose: 1 applic Documented by: Norepinephrine Bitartrate (Levophed Bag - Ns) 16,000 mcg in 500 mls @ 9.375 mls/hr IVPB TITR MAGI; Protocol Last Admin: 10/11/19 21:07 Dose: Not Given Documented by: Vasopressin 40 units/ Sodium (Chloride) 100 mls @ 5 mls/hr IVPB ASDIR [facility]; Protocol Last Admin: 10/11/19 11:35 Dose: Not Given Documented by: Propofol (Diprivan -) 1,000,000 mcg in 100 mls @ 11.97 mls/hr IVPB TITR [facility]; Protocol Last Admin: 10/12/19 16:04 Dose: Not Given Documented by: Piperacillin Sod/Tazobactam (Sod 3.375 gm/ Dextrose) 50 mls @ 100 mls/hr IVPB Q8H-IV [facility]I; Protocol Last Admin: 10/13/19 09:06 Dose: 100 mls/hr Documented by: Vancomycin HCl (Vancomycin (Pre-Docked)) 1,000 mg in 250 mls @ 166.667 mls/hr IVPB Q12H [facility]; Protocol Last Admin: 10/13/19 04:27 Dose: 166.667 mls/hr Documented by: Fentanyl (Sublimaze Ivpb) 500 mcg in 100 mls @ 1 mls/hr IVPB TITR [facility]; Protocol Last Admin: 10/13/19 02:45 Dose: 100 mcg/hr, 20 mls/hr Documented by: Methylprednisolone Sodium Succinate (Solu-Medrol -) 30 mg IVPUSH BID [facility] Metoprolol Tartrate (Lopressor Injection -) 5 mg IVPUSH Q4H PRN PRN Reason: TACHYCARDIA Last Admin: 10/13/19 11:46 Dose: 5 mg Documented by: Mirtazapine (Remeron -) 15 mg PO HS [facility] Last Admin: 10/12/19 21:30 Dose: 15 mg Documented by: Pantoprazole Sodium (Protonix Iv) 40 mg IVPUSH DAILY [facility] Last Admin: 10/13/19 09:07 Dose: 40 mg Documented by: Sotalol HCl (Betapace -) 80 mg PO BID [facility] Last Admin: 10/13/19 09:06 Dose: 80 mg Documented by: ASSESSMENT AND PLAN: Acute Hypoxic Respiratory Failure Suspected COVID19 Pneumonia ARDS Sepsis Paroxysmal Atrial Fibrillation CAD s/p CABG Aortic Stenosis s/p AVR HTN Hypercholesterolemia Anemia - continue antibiotics - off pressors, maintain MAP >65 - continue steroids - continue anticoagulation - rate control - titrate FiO2, PEEP to keep SpO2 >90% - monitor Pplat - sedate for vent synchrony - enteral feeds - DVT/GI prophylaxis - continue ICU monitoring - continue discussions regarding goals of care critical care time spent in reviewing chart, evaluating patient and formulating plan 35 min
[2019-10-13] MEDS: PROPOFOL 1,000,000 MCG/100 ML VIAL IVPB SCH (15:22)
[2019-10-13] MEDS: ACETAMINOPHEN 325 MG TABLET (FP) PO PRN (17:17)
--- NOTE | 2019-10-13 18:27 | PN ---
Physical Exam: SUBJECTIVE: Patient seen and examined. Pt intubated and sedated. Pt continues fighting vent will increase sedation. OBJECTIVE: Vital Signs Period Temp Pulse Resp BP Sys/Amador Pulse Ox Last 24 Hr 97.3 F-99.8 F 89-144 18-23 95-187/54-91 97-114 GENERAL: The patient is sedated and intubated. HEAD: Normal with no signs of trauma. ENT: Ears normal, nares patent, pt intubated NECK: Trachea midline. LUNGS: Rhonchi on bilateral lung olvera HEART: Regular rate and rhythm ABDOMEN: Soft, nontender, nondistended, normoactive bowel sounds EXTREMITIES: 2+ pulses, bilateral lower ext edema SKIN: Warm, dry, normal turgor, no rashes or lesions noted Laboratory Results - last 24 hr 10/06/19 10/13/19 10/13/19 13:15 05:15 05:40 WBC 5.1 RBC 2.81 L Hgb 8.4 L Hct 25.8 L MCV 91.8 MCH 29.9 MCHC 32.6 RDW 16.3 H Plt Count 125 L MPV 9.0 Absolute Neuts (auto) 4.5 Neutrophils % 88.0 H Lymphocytes % 9.7 D Monocytes % 2.1 L Eosinophils % 0.1 D Basophils % 0.1 Nucleated RBC % 1 H ESR D-Dimer Anticoagulation Therapy No Result Required. Puncture Site No Result Required. Patient Temperature No Result Required. ABG pH 7.446 ABG pCO2 40.10 ABG pO2 125.7 H ABG HCO3 27.0 ABG O2 Sat (Measured) 98.6 H ABG O2 Content No Result Required. ABG Base Excess 2.7 H Polo Test No Result Required. Patient On Oxygen Yes O2 Delivery Device Vent Oxygen Flow Rate 50% Vent Mode A/c Vent Rate 18 Mechanical Rate Yes PEEP 8.0 Pressure Support Vent 450 Sodium Potassium Chloride Carbon Dioxide Anion Gap BUN Creatinine Est GFR (CKD-EPI)AfAm Est GFR (CKD-EPI)NonAf Random Glucose Calcium Ferritin Total Bilirubin AST ALT Alkaline Phosphatase LD Total C-Reactive Protein Total Protein Albumin Adenovirus (PCR) Negative Human Metapneumovir PCR Negative Influenza A (H1) PCR Negative Influenza B (RT-PCR) Negative Parainfluenza 1 (PCR) Negative Parainfluenza 2 (PCR) Negative Parainfluenza 3 (PCR) Negative RSV Type A (PCR) Negative RSV Type B (PCR) Negative Rhinovirus (PCR) Negative 10/13/19 10/13/19 10/13/19 05:40 05:40 05:40 WBC RBC Hgb Hct MCV MCH MCHC RDW Plt Count MPV Absolute Neuts (auto) Neutrophils % Lymphocytes % Monocytes % Eosinophils % Basophils % Nucleated RBC % ESR 116 H D-Dimer Anticoagulation Therapy Puncture Site Patient Temperature ABG pH ABG pCO2 ABG pO2 ABG HCO3 ABG O2 Sat (Measured) ABG O2 Content ABG Base Excess Polo Test Patient On Oxygen O2 Delivery Device Oxygen Flow Rate Vent Mode Vent Rate Mechanical Rate PEEP Pressure Support Vent Sodium 145 Potassium 4.4 Chloride 112 H Carbon Dioxide 30 Anion Gap 3 L BUN 38.0 H Creatinine 0.7 Est GFR (CKD-EPI)AfAm 105.50 Est GFR (CKD-EPI)NonAf 91.03 Random Glucose 251 H Calcium 6.8 L* Ferritin 1391.3 H Total Bilirubin 0.9 AST 15 ALT 20 Alkaline Phosphatase 61 LD Total 466 H C-Reactive Protein 7.3 H Total Protein 5.2 L Albumin 1.6 L Adenovirus (PCR) Human Metapneumovir PCR Influenza A (H1) PCR Influenza B (RT-PCR) Parainfluenza 1 (PCR) Parainfluenza 2 (PCR) Parainfluenza 3 (PCR) RSV Type A (PCR) RSV Type B (PCR) Rhinovirus (PCR) 10/13/19 05:40 WBC RBC Hgb Hct MCV MCH MCHC RDW Plt Count MPV Absolute Neuts (auto) Neutrophils % Lymphocytes % Monocytes % Eosinophils % Basophils % Nucleated RBC % ESR D-Dimer 1775 H Anticoagulation Therapy Puncture Site Patient Temperature ABG pH ABG pCO2 ABG pO2 ABG HCO3 ABG O2 Sat (Measured) ABG O2 Content ABG Base Excess Polo Test Patient On Oxygen O2 Delivery Device Oxygen Flow Rate Vent Mode Vent Rate Mechanical Rate PEEP Pressure Support Vent Sodium Potassium Chloride Carbon Dioxide Anion Gap BUN Creatinine Est GFR (CKD-EPI)AfAm Est GFR (CKD-EPI)NonAf Random Glucose Calcium Ferritin Total Bilirubin AST ALT Alkaline Phosphatase LD Total C-Reactive Protein Total Protein Albumin Adenovirus (PCR) Human Metapneumovir PCR Influenza A (H1) PCR Influenza B (RT-PCR) Parainfluenza 1 (PCR) Parainfluenza 2 (PCR) Parainfluenza 3 (PCR) RSV Type A (PCR) RSV Type B (PCR) Rhinovirus (PCR) Active Medications Generic Name Dose Route Start Last Admin Trade Name Freq PRN Reason Stop Dose Admin Acetaminophen 650 mg 10/06/19 00:25 10/13/19 17:17 Tylenol - PO 650 mg Q6H PRN Administration FEVER Albuterol Sulfate 2 puff 10/06/19 00:25 Ventolin Hfa Inhaler - IH Q4H PRN SHORT OF BREATH/WHEEZING Apixaban 5 mg 10/06/19 10:00 10/13/19 09:07 Eliquis - PO 5 mg BID MAGI Administration Atorvastatin Calcium 40 mg 10/06/19 22:00 10/12/19 21:30 Lipitor - PO 40 mg HS MAGI Administration Chlorhexidine Gluconate 1 applic 10/06/19 22:00 10/12/19 21:31 Hibiclens For Decolonization - TP 1 applic HS MAGI Administration Norepinephrine Bitartrate 16,000 mcg in 500 mls @ 9.375 mls/hr 10/06/19 07:45 10/11/19 21:07 Levophed Bag - Ns IVPB Not Given TITR MAGI Protocol 5 MCG/MIN Vasopressin 40 units/ Sodium 100 mls @ 5 mls/hr 10/06/19 09:15 10/11/19 11:35 Chloride IVPB Not Given ASDIR MAGI Protocol 2 UNITS/HR Propofol 1,000,000 mcg in 100 mls @ 11.97 mls/hr 10/11/19 14:30 10/13/19 15:22 Diprivan - IVPB 30 mcg/kg/min TITR MAGI 11.97 mls/hr Administration Protocol 30 MCG/KG/MIN Piperacillin Sod/Tazobactam 50 mls @ 100 mls/hr 10/12/19 16:15 10/13/19 17:16 Sod 3.375 gm/ Dextrose IVPB 100 mls/hr Q8H-IV MAGI Administration Protocol Vancomycin HCl 1,000 mg in 250 mls @ 166.667 mls/hr 10/12/19 16:00 10/13/19 15:41 Vancomycin (Pre-Docked) IVPB 166.667 mls/hr Q12H MAGI Administration Protocol Fentanyl 500 mcg in 100 mls @ 1 mls/hr 10/13/19 02:30 10/13/19 02:45 Sublimaze Ivpb IVPB 100 mcg/hr TITR MAGI 20 mls/hr Administration Protocol 5 MCG/HR Methylprednisolone Sodium Succinate 30 mg 10/13/19 22:00 Solu-Medrol - IVPUSH BID MAGI Metoprolol Tartrate 5 mg 10/12/19 21:13 10/13/19 15:41 Lopressor Injection - IVPUSH 5 mg Q4H PRN Administration TACHYCARDIA Mirtazapine 15 mg 10/06/19 22:00 10/12/19 21:30 Remeron - PO 15 mg HS MAGI Administration Pantoprazole Sodium 40 mg 10/06/19 11:15 10/13/19 09:07 Protonix Iv IVPUSH 40 mg DAILY MAGI Administration Sotalol HCl 80 mg 10/10/19 22:30 10/13/19 09:06 Betapace - PO 80 mg BID MAGI Administration ASSESSMENT/PLAN: 78 yo male DNR with Pmh afib (on eliquis), angina, chf, htn, gi bleed, recent admission for covid afib and acs in ICU for acute hypoxic resp failure to possible COVID pneumonitis vs ARDS. Neuro - sedated on fentanyl. Added propofol back on due to pt was stacking breaths - Held mirtazapine CV - afib, chf, htn, hld. Persistent aflutter with periods rvr s/p cardioversion - eliquis 5mg bid - Pt was tachycardic last night and switched to Lopressor 5mg IV q4 PRN. Cardiology consult will consider cardizem IV prn -sotalol 80 mg PO BID check QTc below 500 - Off pressors maintain MAP>65 - Cont atorvastatin 40mg QD Pulm - Possible COvid pneumonitis. Acute hypoxic resp failure due to ARDS - Started pt on Medro 30 BID - Intubated on 10/04 due to resp failure - rate control - titrate FiO2, PEEP to keep SpO2 >90% (rate 18, Lvolume 450, PEEP 8 FiO2 50%) - monitor Pplat at 41 (10/12) - sedate for vent synchrony ID BILATERAL INFILTRATES ? PNEUMONITIS ? CHF RESP FAILURE S/P TAVR COVID -19 (-) X5 CONTINUE EMPIRIC ZOSYN/VANCO - ID consult appreciated - CXR was ordered- showing slight improvement in aeration since 10/10 - Sputum culture was ordered Renal No acute issues -Monitor I/O's, Cr and electrolytes Heme - stool occult negative - Hgb back up to 8.4. Will continue to monitor GI - h/o GI bleed - no acute issues - c/w protonix Endo - dietary was consulted for elevated glucose. Pt feeds were switched LTD -Smiley 10/04 - intubation 10/04 - Pt IJ central line was taken out Prophylaxis - DVT- SCD/ eliquis - GI- protonix Visit type - Emergency Visit Emergency Visit: Yes ED Registration Date: 09/23/19 Care time: The patient presented to the Emergency Department on the above date and was hospitalized for further evaluation of their emergent condition. - New Patient This patient is new to me today: No - Critical Care Critical Care patient: Yes Total Critical Care Time (in minutes): 36 Critical Care Statement: The care of this patient involved high complexity decision making to prevent further life threatening deterioration of the patient's condition and/or to evaluate & treat vital organ system(s) failure or risk of failure. - Medication Review Med list reviewed for High Risk Meds patients 65 and older: Yes ATTENDING PHYSICIAN STATEMENT I saw and evaluated the patient. I reviewed the resident's note and discussed the case with the resident. I agree with the resident's findings and plan as documented. SUBJECTIVE: OBJECTIVE: ASSESSMENT AND PLAN:
[2019-10-13] MEDS: methylPREDNISolone NA SUCC 40 MG/1 ML VIAL IVPUSH SCH (21:30)
[2019-10-13] MEDS: ATORVASTATIN CA 40 MG TABLET (FP) PO SCH (21:30)
[2019-10-13] MEDS: MIRTAZAPINE 15 MG TABLET (FP) PO SCH (21:31)
[2019-10-13] MEDS: CHLORHEXIDINE GLUCONATE 4% CLEANSER FOR DECOLONIZATION TP SCH (21:31)
[2019-10-14] MEDS ORDERED: DEXTROSE 5%-WATER - 50 ML IVPB ONE ×3 (00:38→16:59)
[2019-10-14] MEDS ORDERED: PIPERACILLIN/TAZOBACTAM 3.375 GM VIAL IVPB ONE ×3 (00:38→16:59)
[2019-10-14] MEDS: PIPERACILLIN/TAZOB 3.375 GM 3.375 GM in DEXTROSE 5%-WATER - 50 ML IVPB SCH ×3 (01:12→18:43)
[2019-10-14] MEDS: FENTANYL IVPB 500 MCG/100 ML BAG IVPB SCH ×4 (01:37→13:00)
[2019-10-14] MEDS: VANCOMYCIN 1 GRAM (PRE-DOCKED) 1,000 MG/250 ML BAG IVPB SCH ×2 (04:15→17:00)
[2019-10-14] MEDS ORDERED: NOREPINEPHRINE BITARTRATE 4 MG/4 ML ML IV ONE (05:41)
[2019-10-14] MEDS ORDERED: VASOPRESSIN 20 UNITS/ML VIAL IV ONE (05:52)
[2019-10-14] MEDS ORDERED: FENTANYL IVPB 500 MCG/100 ML BAG IVPB ONE (06:06)
[2019-10-14 06:25] LABS: ARTERIAL BLD GAS O2 SATURATION 99.1 mmHg (95-98); ARTERIAL BLOOD GAS PO2 146.8 mmHg (80-100)
[2019-10-14 06:49] LABS: BASO % 0.1 % (0-2.0); EOS % 0.4 % (0-4.5); HEMATOCRIT 24.5 % (35.4-49); LYMPH % 15.2 % (8-40); MCH 29.8 pg (25.7-33.7); MCHC 32.6 g/dl (32.0-35.9); MEAN CELL VOLUME 91.4 fl (80-96); MEAN PLT VOLUME 9.5 fl (7.5-11.1); MONO % 2.8 % (3.8-10.2); NEUT % 81.5 % (42.8-82.8); PLATELET COUNT 123 K/MM3 (134-434); RBC 2.68 M/mm3 (4.00-5.60); RDW 16.2 % (11.9-15.9); WHITE BLOOD COUNT 4.4 K/mm3 (4.0-10.0)
[2019-10-14 06:56] LABS: INR 2.1 (0.83-1.09)
[2019-10-14 06:59] LABS: ACTIVATED PTT 28.8 SECONDS (25.2-36.5)
[2019-10-14 07:02] LABS: ALLENS TEST POSITIVE
[2019-10-14 07:03] LABS: VENT MODE A/C
[2019-10-14 07:04] LABS: VENT RATE 18
[2019-10-14 07:15] LABS: ALBUMIN 1.3 g/dl (3.4-5.0); BILIRUBIN,TOTAL 0.8 mg/dL (0.2-1); BLOOD UREA NITROGEN 40.3 mg/dL (7-18); CREATININE 0.7 mg/dL (0.55-1.3); MAGNESIUM 2.5 mg/dL (1.8-2.4); PHOSPHOROUS 2.2 mg/dL (2.5-4.9); POTASSIUM 4.6 mmol/L (3.5-5.1); TOT PROT 4.6 g/dl (6.4-8.2)
[2019-10-14 08:30] LABS: CALCIUM 6.5 mg/dL (8.5-10.1)
[2019-10-14] MEDS: PANTOPRAZOLE SODIUM 40 MG VIAL IVPUSH SCH (10:36)
[2019-10-14] MEDS: APIXABAN 5 MG TABLET PO SCH ×2 (10:37→21:17)
[2019-10-14] MEDS: methylPREDNISolone NA SUCC 40 MG/1 ML VIAL IVPUSH SCH ×2 (10:40→21:18)
[2019-10-14] MEDS: SOTALOL HCL 80 MG TABLET (FP) PO SCH ×2 (10:41→21:17)
--- NOTE | 2019-10-14 11:09 | PN ---
Teaching Attending Note Name of Resident: Rubin Valdes ATTENDING PHYSICIAN STATEMENT I saw and evaluated the patient. I reviewed the resident's note and discussed the case with the resident. I agree with the resident's findings and plan as documented. SUBJECTIVE: Pt seen and examined in the ICU. Remains intubated, sedated. Restarted on va sopressin gtt overnight. Vented on volume assist control with 50% FiO2, PEEP decreased to 5. Pplat 26. OBJECTIVE: Vital Signs Period Temp Pulse Resp BP Sys/Amador Pulse Ox Last 24 Hr 98.2 F-100.4 F 67-140 11-23 76-187/45-91 98-109 Intake & Output 10/11/19 10/12/19 10/13/19 10/14/19 23:59 23:59 23:59 23:59 Intake Total 410 1290 2300 Output Total 6971 232 0046 500 Balance -683 589 1712 -500 Weight 66.5 kg 66.4 kg 67.1 kg 70.6 kg Gen: intubated, sedated Heart: RRR Lung: scattered rhonchi Abd: soft, nontender Ext: + edema CBC, BMP 10/14/19 06:00 10/14/19 06:00 Active Medications Acetaminophen (Tylenol -) 650 mg PO Q6H PRN PRN Reason: FEVER Last Admin: 10/13/19 17:17 Dose: 650 mg Documented by: Albuterol Sulfate (Ventolin Hfa Inhaler -) 2 puff IH Q4H PRN PRN Reason: SHORT OF BREATH/WHEEZING Apixaban (Eliquis -) 5 mg PO BID [facility] Last Admin: 10/14/19 10:37 Dose: 5 mg Documented by: Atorvastatin Calcium (Lipitor -) 40 mg PO [facility] Last Admin: 10/13/19 21:30 Dose: 40 mg Documented by: Chlorhexidine Gluconate (Hibiclens For Decolonization -) 1 applic TP [facility] Last Admin: 10/13/19 21:31 Dose: 1 applic Documented by: Norepinephrine Bitartrate (Levophed Bag - Ns) 16,000 mcg in 500 mls @ 9.375 mls/hr IVPB TITR [facility]; Protocol Last Titration: 10/13/19 21:32 Dose: 0 mcg/min, 0 mls/hr Documented by: Vasopressin 40 units/ Sodium (Chloride) 100 mls @ 5 mls/hr IVPB ASDIR [facility]; Protocol Last Titration: 10/14/19 08:00 Dose: 4 units/hr, 10 mls/hr Documented by: Propofol (Diprivan -) 1,000,000 mcg in 100 mls @ 11.97 mls/hr IVPB TITR [facility]; Protocol Last Admin: 10/13/19 15:22 Dose: 30 mcg/kg/min, 11.97 mls/hr Documented by: Piperacillin Sod/Tazobactam (Sod 3.375 gm/ Dextrose) 50 mls @ 100 mls/hr IVPB Q8H-IV [facility]; Protocol Last Admin: 10/14/19 10:36 Dose: 100 mls/hr Documented by: Vancomycin HCl (Vancomycin (Pre-Docked)) 1,000 mg in 250 mls @ 166.667 mls/hr IVPB Q12H [facility]; Protocol Last Admin: 10/13/19 15:41 Dose: 166.667 mls/hr Documented by: Fentanyl (Sublimaze Ivpb) 500 mcg in 100 mls @ 1 mls/hr IVPB TITR [facility]; Protocol Last Admin: 10/14/19 08:00 Dose: 100 mcg/hr, 20 mls/hr Documented by: Methylprednisolone Sodium Succinate (Solu-Medrol -) 30 mg IVPUSH BID [facility] Last Admin: 10/14/19 10:40 Dose: 30 mg Documented by: Metoprolol Tartrate (Lopressor Injection -) 5 mg IVPUSH Q4H PRN PRN Reason: TACHYCARDIA Last Admin: 10/13/19 23:25 Dose: 5 mg Documented by: Mirtazapine (Remeron -) 15 mg PO HS [facility] Last Admin: 10/13/19 21:31 Dose: Not Given Documented by: Pantoprazole Sodium (Protonix Iv) 40 mg IVPUSH DAILY [facility] Last Admin: 10/14/19 10:36 Dose: 40 mg Documented by: Sotalol HCl (Betapace -) 80 mg PO BID [facility] Last Admin: 10/14/19 10:41 Dose: Not Given Documented by: ASSESSMENT AND PLAN: Acute Hypoxic Respiratory Failure Suspected COVID19 Pneumonia ARDS Sepsis Paroxysmal Atrial Fibrillation CAD s/p CABG Aortic Stenosis s/p AVR HTN Hypercholesterolemia Anemia - continue antibiotics - titrate pressors to maintain MAP >65 - continue steroids - continue anticoagulation - rate control - titrate FiO2, PEEP to keep SpO2 >90% - monitor Pplat - sedate for vent synchrony - enteral feeds - DVT/GI prophylaxis - continue ICU monitoring - continue discussions regarding goals of care critical care time spent in reviewing chart, evaluating patient and formulating plan 35 min
[2019-10-14] MEDS ORDERED: PROPOFOL 1,000,000 MCG/100 ML VIAL ONE ×2 (11:22→11:30)
--- NOTE | 2019-10-14 12:05 | PN ---
Progress Note (short form) - Note Progress Note: remains intubated S1 S2 Irregular Lungs decreased breath sounds Abd- soft, NT No edema Vital Signs - 24 hr 10/13/19 10/13/19 10/13/19 12:05 15:41 16:00 Temperature 99.8 F H Pulse Rate 140 H 116 H Respiratory 23 H 18 Rate Blood Pressure 164/91 95/60 O2 Sat by Pulse 100 100 Oximetry (%) 10/13/19 10/13/19 10/13/19 16:10 18:00 20:00 Temperature 100.4 F H Pulse Rate 107 H 109 H Respiratory 20 20 18 Rate Blood Pressure 106/59 L 95/49 L O2 Sat by Pulse 100 100 100 Oximetry (%) 10/13/19 10/13/19 10/13/19 20:24 20:43 22:00 Temperature 99.2 F Pulse Rate 109 H Respiratory 18 18 Rate Blood Pressure 103/55 L O2 Sat by Pulse 100 100 109 H Oximetry (%) 10/13/19 10/14/19 10/14/19 23:25 00:00 00:07 Temperature Pulse Rate 140 H 79 Respiratory 18 18 Rate Blood Pressure 105/55 L 86/45 L O2 Sat by Pulse 100 100 Oximetry (%) 10/14/19 10/14/19 10/14/19 04:00 04:11 06:00 Temperature Pulse Rate 73 69 Respiratory 21 H 18 11 Rate Blood Pressure 79/47 L 88/48 L O2 Sat by Pulse 100 100 100 Oximetry (%) 10/14/19 10/14/19 10/14/19 08:00 08:20 10:00 Temperature 98.2 F Pulse Rate 68 67 Respiratory 23 H 18 14 Rate Blood Pressure 76/49 L 108/45 L O2 Sat by Pulse 100 100 Oximetry (%) Current Medications Generic Name Dose Route Start Last Admin Trade Name Freq PRN Reason Stop Dose Admin Acetaminophen 650 mg 10/06/19 00:25 10/13/19 17:17 Tylenol - PO 650 mg Q6H PRN Administration FEVER Albuterol Sulfate 2 puff 10/06/19 00:25 Ventolin Hfa Inhaler - IH Q4H PRN SHORT OF BREATH/WHEEZING Apixaban 5 mg 10/06/19 10:00 10/14/19 10:37 Eliquis - PO 5 mg BID MAGI Administration Atorvastatin Calcium 40 mg 10/06/19 22:00 10/13/19 21:30 Lipitor - PO 40 mg HS MAGI Administration Chlorhexidine Gluconate 1 applic 10/06/19 22:00 10/13/19 21:31 Hibiclens For Decolonization - TP 1 applic HS MAGI Administration Norepinephrine Bitartrate 16,000 mcg in 500 mls @ 9.375 mls/hr 10/06/19 07:45 10/13/19 21:32 Levophed Bag - Ns IVPB 0 mcg/min TITR MAGI 0 mls/hr Titration Protocol 5 MCG/MIN Vasopressin 40 units/ Sodium 100 mls @ 5 mls/hr 10/06/19 09:15 10/14/19 08:00 Chloride IVPB 4 units/hr ASDIR MAGI 10 mls/hr Titration Protocol 2 UNITS/HR Propofol 1,000,000 mcg in 100 mls @ 11.97 mls/hr 10/11/19 14:30 10/13/19 15:22 Diprivan - IVPB 30 mcg/kg/min TITR MAGI 11.97 mls/hr Administration Protocol 30 MCG/KG/MIN Piperacillin Sod/Tazobactam 50 mls @ 100 mls/hr 10/12/19 16:15 10/14/19 10:36 Sod 3.375 gm/ Dextrose IVPB 100 mls/hr Q8H-IV MAGI Administration Protocol Vancomycin HCl 1,000 mg in 250 mls @ 166.667 mls/hr 10/12/19 16:00 10/13/19 15:41 Vancomycin (Pre-Docked) IVPB 166.667 mls/hr Q12H MAGI Administration Protocol Fentanyl 500 mcg in 100 mls @ 1 mls/hr 10/13/19 02:30 10/14/19 08:00 Sublimaze Ivpb IVPB 100 mcg/hr TITR MAGI 20 mls/hr Administration Protocol 5 MCG/HR Methylprednisolone Sodium Succinate 30 mg 10/13/19 22:00 10/14/19 10:40 Solu-Medrol - IVPUSH 30 mg BID MAGI Administration Metoprolol Tartrate 5 mg 10/12/19 21:13 10/13/19 23:25 Lopressor Injection - IVPUSH 5 mg Q4H PRN Administration TACHYCARDIA Mirtazapine 15 mg 10/06/19 22:00 08/26/20 21:31 Remeron - PO Not Given HS MAGI Pantoprazole Sodium 40 mg 10/06/19 11:15 10/14/19 10:36 Protonix Iv IVPUSH 40 mg DAILY MAGI Administration Sotalol HCl 80 mg 10/10/19 22:30 10/14/19 10:41 Betapace - PO Not Given BID MAGI Laboratory Results - last 24 hr 10/06/19 10/14/19 10/14/19 13:15 05:54 06:00 WBC RBC Hgb Hct MCV MCH MCHC RDW Plt Count MPV Absolute Neuts (auto) Neutrophils % Lymphocytes % Monocytes % Eosinophils % Basophils % Nucleated RBC % PT with INR INR PTT (Actin FS) D-Dimer Anticoagulation Therapy No Result Required. Puncture Site Right radial Patient Temperature No Result Required. ABG pH 7.480 H ABG pCO2 33.40 L ABG pO2 146.8 H ABG HCO3 24.3 ABG O2 Sat (Measured) 99.1 H ABG O2 Content No Result Required. ABG Base Excess 1.0 Polo Test Positive Patient On Oxygen Yes O2 Delivery Device Vent Oxygen Flow Rate 50% Vent Mode A/c Vent Rate 18 Mechanical Rate Yes PEEP 8.0 Pressure Support Vent 450 Sodium 142 Potassium 4.6 Chloride 110 H Carbon Dioxide 29 Anion Gap 4 L BUN 40.3 H Creatinine 0.7 Est GFR (CKD-EPI)AfAm 105.50 Est GFR (CKD-EPI)NonAf 91.03 Random Glucose 260 H Calcium 6.5 L* Phosphorus 2.2 L Magnesium 2.5 H Ferritin 1125.6 H Total Bilirubin 0.8 AST 18 ALT 18 Alkaline Phosphatase 53 LD Total 390 H C-Reactive Protein 8.3 H Total Protein 4.6 L Albumin 1.3 L Adenovirus (PCR) Negative Human Metapneumovir PCR Negative Influenza A (H1) PCR Negative Influenza B (RT-PCR) Negative Parainfluenza 1 (PCR) Negative Parainfluenza 2 (PCR) Negative Parainfluenza 3 (PCR) Negative RSV Type A (PCR) Negative RSV Type B (PCR) Negative Rhinovirus (PCR) Negative 10/14/19 10/14/19 10/14/19 06:00 06:00 06:00 WBC 4.4 RBC 2.68 L Hgb 8.0 L Hct 24.5 L MCV 91.4 MCH 29.8 MCHC 32.6 RDW 16.2 H Plt Count 123 L MPV 9.5 Absolute Neuts (auto) 3.6 Neutrophils % 81.5 Lymphocytes % 15.2 D Monocytes % 2.8 L Eosinophils % 0.4 D Basophils % 0.1 Nucleated RBC % 1 H PT with INR 25.00 H INR 2.10 H PTT (Actin FS) 28.8 D-Dimer 1897 H Anticoagulation Therapy Puncture Site Patient Temperature ABG pH ABG pCO2 ABG pO2 ABG HCO3 ABG O2 Sat (Measured) ABG O2 Content ABG Base Excess Polo Test Patient On Oxygen O2 Delivery Device Oxygen Flow Rate Vent Mode Vent Rate Mechanical Rate PEEP Pressure Support Vent Sodium Potassium Chloride Carbon Dioxide Anion Gap BUN Creatinine Est GFR (CKD-EPI)AfAm Est GFR (CKD-EPI)NonAf Random Glucose Calcium Phosphorus Magnesium Ferritin Total Bilirubin AST ALT Alkaline Phosphatase LD Total C-Reactive Protein Total Protein Albumin Adenovirus (PCR) Human Metapneumovir PCR Influenza A (H1) PCR Influenza B (RT-PCR) Parainfluenza 1 (PCR) Parainfluenza 2 (PCR) Parainfluenza 3 (PCR) RSV Type A (PCR) RSV Type B (PCR) Rhinovirus (PCR) A/P acute respiratory failure Fever, pneumonitis CHF decompensation Aflutter anemia- s/p PRBC yesterday -- COVID negative -- respiratory mechanics better per ICU attending -- ICU management --s/p cardioversion -- rate control -- continue with meds --broad spectrum antibiotics -- prognosis is guarded -- on pressor support patient is DNR Problem List - Problems (1) Acute on chronic diastolic (congestive) heart failure Code(s): I50.33 - ACUTE ON CHRONIC DIASTOLIC (CONGESTIVE) HEART FAILURE (2) Acute respiratory failure with hypoxia Code(s): J96.01 - ACUTE RESPIRATORY FAILURE WITH HYPOXIA (3) Atrial fibrillation Code(s): I48.91 - UNSPECIFIED ATRIAL FIBRILLATION (4) GERD (gastroesophageal reflux disease) Code(s): K21.9 - GASTRO-ESOPHAGEAL REFLUX DISEASE WITHOUT ESOPHAGITIS (5) HTN (hypertension) Code(s): I10 - ESSENTIAL (PRIMARY) HYPERTENSION Qualifiers: Hypertension type: essential hypertension Qualified Code(s): I10 - Essential (primary) hypertension (6) Suspected 2019 novel coronavirus infection Code(s): Z20.828 - CONTACT W AND EXPOSURE TO OTH VIRAL COMMUNICABLE DISEASES
--- NOTE | 2019-10-14 13:03 | PN ---
Physical Exam: SUBJECTIVE: Patient seen and examined. Pt is intubated and sedated. OBJECTIVE: GENERAL: The patient is sedated and intubated. HEAD: Normal with no signs of trauma. ENT: Ears normal, nares patent, pt intubated NECK: Trachea midline. LUNGS: Rhonchi on bilateral lung [place] HEART: Regular rate and rhythm ABDOMEN: Soft, nontender, nondistended, normoactive bowel sounds EXTREMITIES: 2+ pulses, bilateral lower ext edema SKIN: Warm, dry, normal turgor, no rashes or lesions noted Vital Signs Period Temp Pulse Resp BP Sys/Amador Pulse Ox Last 24 Hr 98.2 F-100.4 F 67-140 11-23 76-164/45-91 100-109 Laboratory Results - last 24 hr 10/06/19 10/14/19 10/14/19 13:15 05:54 06:00 WBC RBC Hgb Hct MCV MCH MCHC RDW Plt Count MPV Absolute Neuts (auto) Neutrophils % Lymphocytes % Monocytes % Eosinophils % Basophils % Nucleated RBC % PT with INR INR PTT (Actin FS) D-Dimer Anticoagulation Therapy No Result Required. Puncture Site Right radial Patient Temperature No Result Required. ABG pH 7.480 H ABG pCO2 33.40 L ABG pO2 146.8 H ABG HCO3 24.3 ABG O2 Sat (Measured) 99.1 H ABG O2 Content No Result Required. ABG Base Excess 1.0 Polo Test Positive Patient On Oxygen Yes O2 Delivery Device Vent Oxygen Flow Rate 50% Vent Mode A/c Vent Rate 18 Mechanical Rate Yes PEEP 8.0 Pressure Support Vent 450 Sodium 142 Potassium 4.6 Chloride 110 H Carbon Dioxide 29 Anion Gap 4 L BUN 40.3 H Creatinine 0.7 Est GFR (CKD-EPI)AfAm 105.50 Est GFR (CKD-EPI)NonAf 91.03 Random Glucose 260 H Calcium 6.5 L* Phosphorus 2.2 L Magnesium 2.5 H Ferritin 1125.6 H Total Bilirubin 0.8 AST 18 ALT 18 Alkaline Phosphatase 53 LD Total 390 H C-Reactive Protein 8.3 H Total Protein 4.6 L Albumin 1.3 L Adenovirus (PCR) Negative Human Metapneumovir PCR Negative Influenza A (H1) PCR Negative Influenza B (RT-PCR) Negative Parainfluenza 1 (PCR) Negative Parainfluenza 2 (PCR) Negative Parainfluenza 3 (PCR) Negative RSV Type A (PCR) Negative RSV Type B (PCR) Negative Rhinovirus (PCR) Negative 10/14/19 10/14/19 10/14/19 06:00 06:00 06:00 WBC 4.4 RBC 2.68 L Hgb 8.0 L Hct 24.5 L MCV 91.4 MCH 29.8 MCHC 32.6 RDW 16.2 H Plt Count 123 L MPV 9.5 Absolute Neuts (auto) 3.6 Neutrophils % 81.5 Lymphocytes % 15.2 D Monocytes % 2.8 L Eosinophils % 0.4 D Basophils % 0.1 Nucleated RBC % 1 H PT with INR 25.00 H INR 2.10 H PTT (Actin FS) 28.8 D-Dimer 1897 H Anticoagulation Therapy Puncture Site Patient Temperature ABG pH ABG pCO2 ABG pO2 ABG HCO3 ABG O2 Sat (Measured) ABG O2 Content ABG Base Excess Polo Test Patient On Oxygen O2 Delivery Device Oxygen Flow Rate Vent Mode Vent Rate Mechanical Rate PEEP Pressure Support Vent Sodium Potassium Chloride Carbon Dioxide Anion Gap BUN Creatinine Est GFR (CKD-EPI)AfAm Est GFR (CKD-EPI)NonAf Random Glucose Calcium Phosphorus Magnesium Ferritin Total Bilirubin AST ALT Alkaline Phosphatase LD Total C-Reactive Protein Total Protein Albumin Adenovirus (PCR) Human Metapneumovir PCR Influenza A (H1) PCR Influenza B (RT-PCR) Parainfluenza 1 (PCR) Parainfluenza 2 (PCR) Parainfluenza 3 (PCR) RSV Type A (PCR) RSV Type B (PCR) Rhinovirus (PCR) Active Medications Generic Name Dose Route Start Last Admin Trade Name Freq PRN Reason Stop Dose Admin Acetaminophen 650 mg 10/06/19 00:25 10/13/19 17:17 Tylenol - PO 650 mg Q6H PRN Administration FEVER Albuterol Sulfate 2 puff 10/06/19 00:25 Ventolin Hfa Inhaler - IH Q4H PRN SHORT OF BREATH/WHEEZING Apixaban 5 mg 10/06/19 10:00 10/14/19 10:37 Eliquis - PO 5 mg BID MAGI Administration Atorvastatin Calcium 40 mg 10/06/19 22:00 10/13/19 21:30 Lipitor - PO 40 mg HS MAGI Administration Chlorhexidine Gluconate 1 applic 10/06/19 22:00 10/13/19 21:31 Hibiclens For Decolonization - TP 1 applic HS MAGI Administration Norepinephrine Bitartrate 16,000 mcg in 500 mls @ 9.375 mls/hr 10/06/19 07:45 10/13/19 21:32 Levophed Bag - Ns IVPB 0 mcg/min TITR MAGI 0 mls/hr Titration Protocol 5 MCG/MIN Vasopressin 40 units/ Sodium 100 mls @ 5 mls/hr 10/06/19 09:15 10/14/19 08:00 Chloride IVPB 4 units/hr ASDIR MAGI 10 mls/hr Titration Protocol 2 UNITS/HR Propofol 1,000,000 mcg in 100 mls @ 11.97 mls/hr 10/11/19 14:30 10/13/19 15:22 Diprivan - IVPB 30 mcg/kg/min TITR MAGI 11.97 mls/hr Administration Protocol 30 MCG/KG/MIN Piperacillin Sod/Tazobactam 50 mls @ 100 mls/hr 10/12/19 16:15 10/14/19 10:36 Sod 3.375 gm/ Dextrose IVPB 100 mls/hr Q8H-IV MAGI Administration Protocol Vancomycin HCl 1,000 mg in 250 mls @ 166.667 mls/hr 10/12/19 16:00 10/13/19 15:41 Vancomycin (Pre-Docked) IVPB 166.667 mls/hr Q12H MAGI Administration Protocol Fentanyl 500 mcg in 100 mls @ 1 mls/hr 10/13/19 02:30 10/14/19 08:00 Sublimaze Ivpb IVPB 100 mcg/hr TITR MAGI 20 mls/hr Administration Protocol 5 MCG/HR Methylprednisolone Sodium Succinate 30 mg 10/13/19 22:00 10/14/19 10:40 Solu-Medrol - IVPUSH 30 mg BID MAGI Administration Metoprolol Tartrate 5 mg 10/12/19 21:13 10/13/19 23:25 Lopressor Injection - IVPUSH 5 mg Q4H PRN Administration TACHYCARDIA Mirtazapine 15 mg 10/06/19 22:00 10/13/19 21:31 Remeron - PO Not Given HS MAGI Pantoprazole Sodium 40 mg 10/06/19 11:15 10/14/19 10:36 Protonix Iv IVPUSH 40 mg DAILY MAGI Administration Sotalol HCl 80 mg 10/10/19 22:30 10/14/19 10:41 Betapace - PO Not Given BID MAGI ASSESSMENT/PLAN: 78 yo male DNR with Pmh afib (on eliquis), angina, chf, htn, gi bleed, recent admission for covid afib and acs in ICU for acute hypoxic resp failure to possible COVID pneumonitis vs ARDS. Neuro - sedated on fentanyl and propofol. - Held mirtazapine for depression CV - afib (periods rapid ventricular response s/p DCCV to initially MAT now ?sinus with APC) chf, htn, hld. Persistent aflutter with periods rvr s/p cardioversion - eliquis 5mg bid -sotalol 80 mg PO BID check QTc below 500 - Cont atorvastatin 40mg QD - Pt was tachycardic last night was given Lopressor. Pt BP dropped bellow 50 and was given vasopressin. Pt was put back on central line placed in left IJ. If vasopressin is elevated will put pt back on levo. Cardiology consult will consider cardizem IV prn depending BP. Pulm - Possible COvid pneumonitis. Acute hypoxic resp failure due to ARDS - Started pt on Medro 30 BID - Intubated on 10/04 due to resp failure - rate control - titrate FiO2, PEEP to keep SpO2 >90% - pt overbreathing vent today pH 7.48 pCO2 33.4 pO2 146.8 Spo2 99.1. - Pt vent settings were rate 28, volume 450, PEEP 8, FiO2 50% Pplat 26. Pt vent settings changed due to ABG results. New vent settings RR:14; PEEP; 5; FiO2:50%; Tvolume 450. If PPlat <20 will start weaning off sedation. - sedate for vent synchrony - Pt family was spoken about goals of care. Pt family considering DNI ID BILATERAL INFILTRATES ? PNEUMONITIS ? CHF RESP FAILURE S/P TAVR COVID -19 (-) X5 CONTINUE EMPIRIC ZOSYN/VANCO - ID consult appreciated - CXR was ordered- showing slight improvement in aeration since 10/10 - Sputum culture was ordered Renal No acute issues -Monitor I/O's, Cr and electrolytes Heme - stool occult negative - Hgb back up to 8.4. Will continue to monitor GI - h/o GI bleed - no acute issues - c/w protonix Endo - Pt glucose remains to be elevated. Consult forensics team director. LTD -Smiley 10/04 - intubation 10/04 - Pt LIAracelis 10/13 Prophylaxis - DVT- SCD/ eliquis - GI- protonix Visit type - Emergency Visit Emergency Visit: Yes ED Registration Date: 09/23/19 Care time: The patient presented to the Emergency Department on the above date and was hospitalized for further evaluation of their emergent condition. - New Patient This patient is new to me today: No - Critical Care Critical Care patient: Yes Total Critical Care Time (in minutes): 36 Critical Care Statement: The care of this patient involved high complexity decision making to prevent further life threatening deterioration of the patient's condition and/or to evaluate & treat vital organ system(s) failure or risk of failure. - Medication Review Med list reviewed for High Risk Meds patients 65 and older: Yes ATTENDING PHYSICIAN STATEMENT I saw and evaluated the patient. I reviewed the resident's note and discussed the case with the resident. I agree with the resident's findings and plan as documented. SUBJECTIVE: OBJECTIVE: ASSESSMENT AND PLAN: Central Line Insertion Risks and Benefits Explained: Yes Consent on Chart: Yes Central Line: Triple Lumen Catheter Anesthesia: 1% Lidocaine Sterile Technique: Yes Ultrasound Guided Assistance: Yes Position: Left Internal Jugular Post Insertion: Yes: Chest X-Ray Ordered Sterile Dressing Applied: Yes
--- NOTE | 2019-10-14 13:23 | PN ---
Progress Note, Physician Chief Complaint: Events noted Remains in ICU on mechanical ventilator Pressor support on Levophed also Vasopressin started History of Present Illness: Patient was seen and examined. Awake and alert. Chart was reviewed - Current Medication List Current Medications: Active Medications Acetaminophen (Tylenol -) 650 mg PO Q6H PRN PRN Reason: FEVER Last Admin: 10/13/19 17:17 Dose: 650 mg Documented by: Albuterol Sulfate (Ventolin Hfa Inhaler -) 2 puff IH Q4H PRN PRN Reason: SHORT OF BREATH/WHEEZING Apixaban (Eliquis -) 5 mg PO BID MAGI Last Admin: 10/14/19 10:37 Dose: 5 mg Documented by: Atorvastatin Calcium (Lipitor -) 40 mg PO HS MAGI Last Admin: 10/13/19 21:30 Dose: 40 mg Documented by: Chlorhexidine Gluconate (Hibiclens For Decolonization -) 1 applic TP HS MAGI Last Admin: 10/13/19 21:31 Dose: 1 applic Documented by: Norepinephrine Bitartrate (Levophed Bag - Ns) 16,000 mcg in 500 mls @ 9.375 mls/hr IVPB TITR MAGI; Protocol Last Titration: 10/13/19 21:32 Dose: 0 mcg/min, 0 mls/hr Documented by: Vasopressin 40 units/ Sodium (Chloride) 100 mls @ 5 mls/hr IVPB ASDIR MAGI; Protocol Last Titration: 10/14/19 08:00 Dose: 4 units/hr, 10 mls/hr Documented by: Propofol (Diprivan -) 1,000,000 mcg in 100 mls @ 11.97 mls/hr IVPB TITR MAGI; Protocol Last Admin: 10/13/19 15:22 Dose: 30 mcg/kg/min, 11.97 mls/hr Documented by: Piperacillin Sod/Tazobactam (Sod 3.375 gm/ Dextrose) 50 mls @ 100 mls/hr IVPB Q8H-IV MAGI; Protocol Last Admin: 10/14/19 10:36 Dose: 100 mls/hr Documented by: Vancomycin HCl (Vancomycin (Pre-Docked)) 1,000 mg in 250 mls @ 166.667 mls/hr IVPB Q12H MAGI; Protocol Last Admin: 10/13/19 15:41 Dose: 166.667 mls/hr Documented by: Fentanyl (Sublimaze Ivpb) 500 mcg in 100 mls @ 1 mls/hr IVPB TITR [facility]; Protocol Last Admin: 10/14/19 09:30 Dose: 100 mcg/hr, 20 mls/hr Documented by: Methylprednisolone Sodium Succinate (Solu-Medrol -) 30 mg IVPUSH BID [facility] Last Admin: 10/14/19 10:40 Dose: 30 mg Documented by: Metoprolol Tartrate (Lopressor Injection -) 5 mg IVPUSH Q4H PRN PRN Reason: TACHYCARDIA Last Admin: 10/13/19 23:25 Dose: 5 mg Documented by: Mirtazapine (Remeron -) 15 mg PO HS [facility] Last Admin: 10/13/19 21:31 Dose: Not Given Documented by: Pantoprazole Sodium (Protonix Iv) 40 mg IVPUSH DAILY [facility] Last Admin: 10/14/19 10:36 Dose: 40 mg Documented by: Sotalol HCl (Betapace -) 80 mg PO BID [facility] Last Admin: 10/14/19 10:41 Dose: Not Given Documented by: - Objective Vital Signs: Vital Signs Temperature 98.2 F 10/14/19 10:00 Pulse Rate 75 10/14/19 12:00 Respiratory Rate 15 10/14/19 12:00 Blood Pressure 99/63 10/14/19 12:00 O2 Sat by Pulse Oximetry (%) 100 10/14/19 12:00 Neck: Yes: Supple Cardiovascular: Yes: Pulse Irregular, S1, S2 Respiratory: Yes: Mechanically Ventilated, Rhonchi Gastrointestinal: Yes: Normal Bowel Sounds, Soft. No: Tenderness Edema: No Labs: CBC, BMP 10/14/19 06:00 10/14/19 06:00 INR, PTT INR 2.10 (0.83-1.09) H 10/14/19 06:00 Fibrinogen > 500.0 mg/dL (238-498) H 10/08/19 06:30 Problem List - Problems (1) Acute on chronic diastolic (congestive) heart failure Code(s): I50.33 - ACUTE ON CHRONIC DIASTOLIC (CONGESTIVE) HEART FAILURE (2) Acute respiratory failure with hypoxia Code(s): J96.01 - ACUTE RESPIRATORY FAILURE WITH HYPOXIA (3) Aortic aneurysm Code(s): I71.9 - AORTIC ANEURYSM OF UNSPECIFIED SITE, WITHOUT RUPTURE (4) Atrial flutter Code(s): I48.92 - UNSPECIFIED ATRIAL FLUTTER Qualifiers: Atrial flutter type: typical Qualified Code(s): I48.3 - Typical atrial flutter (5) CAD (coronary artery disease) Code(s): I25.10 - ATHSCL HEART DISEASE OF [place] CORONARY ARTERY W/O ANG PCTRS Qualifiers: Coronary Disease-Associated Artery/Lesion type: [place] artery [place] vs. transplanted heart: [place] heart Associated angina: without angina Qualified Code(s): I25.10 - Atherosclerotic heart disease of [place] coronary artery without angina pectoris (6) GERD (gastroesophageal reflux disease) Code(s): K21.9 - GASTRO-ESOPHAGEAL REFLUX DISEASE WITHOUT ESOPHAGITIS (7) HTN (hypertension) Code(s): I10 - ESSENTIAL (PRIMARY) HYPERTENSION Qualifiers: Hypertension type: essential hypertension Qualified Code(s): I10 - Essential (primary) hypertension (8) Hypercholesterolemia Code(s): E78.00 - PURE HYPERCHOLESTEROLEMIA, UNSPECIFIED (9) S/P AVR (aortic valve replacement) Code(s): Z95.2 - PRESENCE OF PROSTHETIC HEART VALVE (10) S/P left atrial appendage ligation Code(s): Z98.890 - OTHER SPECIFIED POSTPROCEDURAL STATES (11) Suspected COVID-19 virus infection Code(s): Z20.828 - CONTACT W AND EXPOSURE TO OTH VIRAL COMMUNICABLE DISEASES Assessment/Plan 1. Recurrent acute hypoxic respiratory failure related to bronchopneumonia with probable sepsis syndrome, coronavirus/COVID 19 - pneumonitis - respiratory failure on mechanical ventilation 2. Clinical presentation is consistent with chronic class I-II NYHA classification LV diastolic heart failure, no evidence of acute decompensation 3. Paroxysmal atrial flutter with periods rapid ventricular response s/p DCCV to initially MAT now ?sinus with APC 4. CAD post CABG with evidence of demand ischemia related to the above-noted clinical presentation angina pectoris 5. Aortic valve stenosis post SAVR/bio-prosthesis with LA appendage ligation 6. Hypertensive cardiovascular disease 7. Hypercholesterolemia 8. Anemia PLAN: 1. Mechanical ventilator as per critical care team. 2. Pressor support keep MAP > 65 mmHg 3. Wean FIO2 and PEEP to maintain saO2, bronchodilator, IV steroids with GI protection, empiric antibiotic course 4. Continue Sotalol 80 mg BID with QTc check and on Lopressor 2.5 IV q4 PRN. May also consider Cardizem IV PRN. BP permitting 5. Continue Atorvastatin 40 mg QD and Eliquis 5 mg BID as tolerated 6. Monitor renal function and electrolytes DNR Supportive care. Goal of care? Guarded Phuc Dillon MD
[2019-10-14] MEDS: VASOPRESSIN 40 UNITS in SODIUM CHLORIDE 98 ML IVPB SCH (16:00)
[2019-10-14] MEDS: NOREPINEPHRINE NS PREMIX 16,000 MCG/500 ML BAG IVPB SCH (17:00)
[2019-10-14] MEDS: PROPOFOL 1,000,000 MCG/100 ML VIAL IVPB SCH (18:00)
[2019-10-14] MEDS: ATORVASTATIN CA 40 MG TABLET (FP) PO SCH (21:17)
[2019-10-14] MEDS: CHLORHEXIDINE GLUCONATE 4% CLEANSER FOR DECOLONIZATION TP SCH (21:17)
[2019-10-14] MEDS: MIRTAZAPINE 15 MG TABLET (FP) PO SCH (21:17)
[2019-10-15] MEDS ORDERED: PIPERACILLIN/TAZOBACTAM 3.375 GM VIAL IVPB ONE ×3 (01:06→17:44)
[2019-10-15] MEDS ORDERED: DEXTROSE 5%-WATER - 50 ML IVPB ONE ×3 (01:07→17:44)
[2019-10-15] MEDS: PIPERACILLIN/TAZOB 3.375 GM 3.375 GM in DEXTROSE 5%-WATER - 50 ML IVPB SCH ×3 (01:23→17:55)
[2019-10-15] MEDS: FENTANYL IVPB 500 MCG/100 ML BAG IVPB SCH ×3 (04:45→20:00)
[2019-10-15] MEDS: VANCOMYCIN 1 GRAM (PRE-DOCKED) 1,000 MG/250 ML BAG IVPB SCH ×2 (04:46→17:55)
[2019-10-15 06:28] LABS: ARTERIAL BLD GAS O2 SATURATION 98.6 mmHg (95-98); ARTERIAL BLOOD GAS BASE EXCESS 0.3 mmol/L (-2-2); ARTERIAL BLOOD GAS PO2 128.2 mmHg (80-100)
[2019-10-15 06:40] LABS: ALLENS TEST POSITIVE
[2019-10-15 06:41] LABS: VENT MODE A/C; VENT RATE 14
[2019-10-15 07:09] LABS: BASO % 0.1 % (0-2.0); EOS % 0.1 % (0-4.5); HEMATOCRIT 24.1 % (35.4-49); HEMOGLOBIN 7.9 GM/dL (11.7-16.9); LYMPH % 8.1 % (8-40); MCH 29.9 pg (25.7-33.7); MCHC 32.8 g/dl (32.0-35.9); MEAN CELL VOLUME 91.2 fl (80-96); MONO % 3.2 % (3.8-10.2); NEUT % 88.5 % (42.8-82.8); PLATELET COUNT 167 K/MM3 (134-434); RBC 2.65 M/mm3 (4.00-5.60); RDW 15.6 % (11.9-15.9); WHITE BLOOD COUNT 6.5 K/mm3 (4.0-10.0)
[2019-10-15 07:17] LABS: INR 1.72 (0.83-1.09); PROTHROMBIN TIME (PATIENT) 20.4 SEC (9.7-13.0)
[2019-10-15 07:19] LABS: ACTIVATED PTT 25.5 SECONDS (25.2-36.5)
[2019-10-15 07:32] LABS: ALBUMIN 1.4 g/dl (3.4-5.0); BILIRUBIN,TOTAL 1.1 mg/dL (0.2-1); BLOOD UREA NITROGEN 37.1 mg/dL (7-18); CREATININE 0.6 mg/dL (0.55-1.3); POTASSIUM 4.3 mmol/L (3.5-5.1)
[2019-10-15 07:46] LABS: CALCIUM 6.6 mg/dL (8.5-10.1)
[2019-10-15] MEDS: PROPOFOL 1,000,000 MCG/100 ML VIAL IVPB SCH ×2 (09:14→17:51)
--- NOTE | 2019-10-15 09:36 | PN ---
Progress Note, Physician Chief Complaint: Events noted Remains in ICU on mechanical ventilator Pressor support on Levophed only. Vasopressin taken off History of Present Illness: Patient was seen and examined. Awake and alert. Chart was reviewed Sinus rhythm with bursts of SVT vs. APCs - Current Medication List Current Medications: Active Medications Acetaminophen (Tylenol -) 650 mg PO Q6H PRN PRN Reason: FEVER Last Admin: 10/13/19 17:17 Dose: 650 mg Documented by: Albuterol Sulfate (Ventolin Hfa Inhaler -) 2 puff IH Q4H PRN PRN Reason: SHORT OF BREATH/WHEEZING Apixaban (Eliquis -) 5 mg PO BID [facility] Last Admin: 10/14/19 21:17 Dose: 5 mg Documented by: Atorvastatin Calcium (Lipitor -) 40 mg PO HS [facility] Last Admin: 10/14/19 21:17 Dose: 40 mg Documented by: Chlorhexidine Gluconate (Hibiclens For Decolonization -) 1 applic TP HS [facility] Last Admin: 10/14/19 21:17 Dose: 1 applic Documented by: Norepinephrine Bitartrate (Levophed Bag - Ns) 16,000 mcg in 500 mls @ 9.375 mls/hr IVPB TITR [facility]; Protocol Last Titration: 10/15/19 09:00 Dose: 2 mcg/min, 3.75 mls/hr Documented by: Vasopressin 40 units/ Sodium (Chloride) 100 mls @ 5 mls/hr IVPB ASDIR [facility]; Protocol Last Titration: 10/14/19 21:19 Dose: 0 units/hr, 0 mls/hr Documented by: Propofol (Diprivan -) 1,000,000 mcg in 100 mls @ 11.97 mls/hr IVPB TITR [facility]; Protocol Last Admin: 10/15/19 09:14 Dose: 15 mcg/kg/min, 5.985 mls/hr Documented by: Piperacillin Sod/Tazobactam (Sod 3.375 gm/ Dextrose) 50 mls @ 100 mls/hr IVPB Q8H-IV [facility]; Protocol Last Admin: 10/15/19 01:23 Dose: 100 mls/hr Documented by: Vancomycin HCl (Vancomycin (Pre-Docked)) 1,000 mg in 250 mls @ 166.667 mls/hr IVPB Q12H [facility]; Protocol Last Admin: 10/15/19 04:46 Dose: 166.667 mls/hr Documented by: Fentanyl (Sublimaze Ivpb) 500 mcg in 100 mls @ 1 mls/hr IVPB TITR [facility]; Protocol Last Admin: 10/15/19 04:45 Dose: 100 mcg/hr, 20 mls/hr Documented by: Methylprednisolone Sodium Succinate (Solu-Medrol -) 30 mg IVPUSH BID [facility] Last Admin: 10/14/19 21:18 Dose: 30 mg Documented by: Metoprolol Tartrate (Lopressor Injection -) 5 mg IVPUSH Q4H PRN PRN Reason: TACHYCARDIA Last Admin: 10/13/19 23:25 Dose: 5 mg Documented by: Mirtazapine (Remeron -) 15 mg PO HS [facility] Last Admin: 10/14/19 21:17 Dose: Not Given Documented by: Pantoprazole Sodium (Protonix Iv) 40 mg IVPUSH DAILY [facility] Last Admin: 10/14/19 10:36 Dose: 40 mg Documented by: Sotalol HCl (Betapace -) 80 mg PO BID [facility] Last Admin: 10/14/19 21:17 Dose: 80 mg Documented by: - Objective Vital Signs: Vital Signs Temperature 98.2 F 10/14/19 18:00 Pulse Rate 102 H 10/15/19 09:00 Respiratory Rate 14 10/15/19 09:00 Blood Pressure 149/76 10/15/19 09:00 O2 Sat by Pulse Oximetry (%) 100 10/15/19 09:00 Cardiovascular: Yes: Pulse Irregular Respiratory: Yes: Mechanically Ventilated, Rhonchi Gastrointestinal: Yes: Normal Bowel Sounds, Soft. No: Tenderness Edema: No Labs: CBC, BMP 10/15/19 05:30 10/15/19 06:00 INR, PTT INR 1.72 (0.83-1.09) H 10/15/19 05:30 Fibrinogen > 500.0 mg/dL (238-498) H 10/08/19 06:30 Problem List - Problems (1) Acute on chronic diastolic (congestive) heart failure Code(s): I50.33 - ACUTE ON CHRONIC DIASTOLIC (CONGESTIVE) HEART FAILURE (2) Acute respiratory failure with hypoxia Code(s): J96.01 - ACUTE RESPIRATORY FAILURE WITH HYPOXIA (3) Aortic aneurysm Code(s): I71.9 - AORTIC ANEURYSM OF UNSPECIFIED SITE, WITHOUT RUPTURE (4) Atrial flutter Code(s): I48.92 - UNSPECIFIED ATRIAL FLUTTER Qualifiers: Atrial flutter type: typical Qualified Code(s): I48.3 - Typical atrial flutter (5) CAD (coronary artery disease) Code(s): I25.10 - ATHSCL HEART DISEASE OF [place] CORONARY ARTERY W/O ANG PCTRS Qualifiers: Coronary Disease-Associated Artery/Lesion type: [place] artery [place] vs. transplanted heart: [place] heart Associated angina: without angina Qualified Code(s): I25.10 - Atherosclerotic heart disease of [place] coronary artery without angina pectoris (6) GERD (gastroesophageal reflux disease) Code(s): K21.9 - GASTRO-ESOPHAGEAL REFLUX DISEASE WITHOUT ESOPHAGITIS (7) HTN (hypertension) Code(s): I10 - ESSENTIAL (PRIMARY) HYPERTENSION Qualifiers: Hypertension type: essential hypertension Qualified Code(s): I10 - Essential (primary) hypertension (8) Hypercholesterolemia Code(s): E78.00 - PURE HYPERCHOLESTEROLEMIA, UNSPECIFIED (9) S/P AVR (aortic valve replacement) Code(s): Z95.2 - PRESENCE OF PROSTHETIC HEART VALVE (10) S/P left atrial appendage ligation Code(s): Z98.890 - OTHER SPECIFIED POSTPROCEDURAL STATES (11) Suspected COVID-19 virus infection Code(s): Z20.828 - CONTACT W AND EXPOSURE TO OTH VIRAL COMMUNICABLE DISEASES Assessment/Plan 1. Recurrent acute hypoxic respiratory failure related to bronchopneumonia with probable sepsis syndrome, coronavirus/COVID 19 - pneumonitis - respiratory failure on mechanical ventilation 2. Clinical presentation is consistent with chronic class I-II NYHA classification LV diastolic heart failure, no evidence of acute decompensation 3. Paroxysmal atrial flutter with periods rapid ventricular response s/p DCCV to initially MAT now ?sinus with APC 4. CAD post CABG with evidence of demand ischemia related to the above-noted clinical presentation angina pectoris 5. Aortic valve stenosis post SAVR/bio-prosthesis with LA appendage ligation 6. Hypertensive cardiovascular disease 7. Hypercholesterolemia 8. Anemia PLAN: 1. Mechanical ventilator as per critical care team. 2. Pressor support keep MAP > 65 mmHg 3. Wean FIO2 and PEEP to maintain saO2, bronchodilator, IV steroids with GI protection, empiric antibiotic course 4. Continue Sotalol 80 mg BID as tolerated with QTc check and on Lopressor 2.5 IV q4 PRN. May also consider Cardizem IV PRN. BP permitting 5. Continue Atorvastatin 40 mg QD and Eliquis 5 mg BID as tolerated 6. Monitor renal function and electrolytes DNR Supportive care. Goal of care? Guarded Phuc Dillon MD
[2019-10-15 09:40] LABS: ANISOCYTOSIS 0; MACROCYTOSIS 0; PLATELET ESTIMATE NORMAL
[2019-10-15] MEDS ORDERED: PT OWN MED DRAWER 7, Y5N ONE (10:03)
--- NOTE | 2019-10-15 10:50 | PN ---
Teaching Attending Note Name of Resident: Rubin Valdes ATTENDING PHYSICIAN STATEMENT I saw and evaluated the patient. I reviewed the resident's note and discussed the case with the resident. I agree with the resident's findings and plan as documented. SUBJECTIVE: Pt seen and examined in the ICU. Remains intubated, sedated on low dose levophed gtt. Vented on volume assist control with 50% FiO2, PEEP decreased to 5. Pplat 26. OBJECTIVE: Vital Signs Period Temp Pulse Resp BP Sys/Amador Pulse Ox Last 24 Hr 98.1 F-98.2 F 0-117 - 55-149/32-79 99-100 Intake & Output 10/12/19 10/13/19 10/14/19 10/15/19 23:59 23:59 23:59 23:59 Intake Total 1290 2300 1727 434 Output Total 850 1050 1040 850 Balance 440 1250 687 -416 Weight 66.4 kg 67.1 kg 70.6 kg 70.2 kg Gen: intubated, sedated Heart: RRR Lung: scattered rhonchi Abd: soft, nontender Ext: + edema CBC, BMP 10/15/19 05:30 10/15/19 06:00 Active Medications Acetaminophen (Tylenol -) 650 mg PO Q6H PRN PRN Reason: FEVER Last Admin: 10/13/19 17:17 Dose: 650 mg Documented by: Albuterol Sulfate (Ventolin Hfa Inhaler -) 2 puff IH Q4H PRN PRN Reason: SHORT OF BREATH/WHEEZING Apixaban (Eliquis -) 5 mg PO BID [facility] Last Admin: 10/14/19 21:17 Dose: 5 mg Documented by: Atorvastatin Calcium (Lipitor -) 40 mg PO [facility] Last Admin: 10/14/19 21:17 Dose: 40 mg Documented by: Chlorhexidine Gluconate (Hibiclens For Decolonization -) 1 applic TP [facility] Last Admin: 10/14/19 21:17 Dose: 1 applic Documented by: Norepinephrine Bitartrate (Levophed Bag - Ns) 16,000 mcg in 500 mls @ 9.375 mls/hr IVPB TITR [facility]; Protocol Last Titration: 10/15/19 09:00 Dose: 2 mcg/min, 3.75 mls/hr Documented by: Vasopressin 40 units/ Sodium (Chloride) 100 mls @ 5 mls/hr IVPB [facility]; Protocol Last Titration: 10/14/19 21:19 Dose: 0 units/hr, 0 mls/hr Documented by: Propofol (Diprivan -) 1,000,000 mcg in 100 mls @ 11.97 mls/hr IVPB TITR [facility]; Protocol Last Admin: 10/15/19 09:14 Dose: 15 mcg/kg/min, 5.985 mls/hr Documented by: Piperacillin Sod/Tazobactam (Sod 3.375 gm/ Dextrose) 50 mls @ 100 mls/hr IVPB Q8H-IV [facility]; Protocol Last Admin: 10/15/19 01:23 Dose: 100 mls/hr Documented by: Vancomycin HCl (Vancomycin (Pre-Docked)) 1,000 mg in 250 mls @ 166.667 mls/hr IVPB Q12H [facility]; Protocol Last Admin: 10/15/19 04:46 Dose: 166.667 mls/hr Documented by: Fentanyl (Sublimaze Ivpb) 500 mcg in 100 mls @ 1 mls/hr IVPB TITR [facility]; Protocol Last Admin: 10/15/19 04:45 Dose: 100 mcg/hr, 20 mls/hr Documented by: Methylprednisolone Sodium Succinate (Solu-Medrol -) 30 mg IVPUSH BID [facility] Last Admin: 10/14/19 21:18 Dose: 30 mg Documented by: Metoprolol Tartrate (Lopressor Injection -) 5 mg IVPUSH Q4H PRN PRN Reason: TACHYCARDIA Last Admin: 10/13/19 23:25 Dose: 5 mg Documented by: Mirtazapine (Remeron -) 15 mg PO HS [facility] Last Admin: 10/14/19 21:17 Dose: Not Given Documented by: Pantoprazole Sodium (Protonix Iv) 40 mg IVPUSH DAILY [facility] Last Admin: 10/14/19 10:36 Dose: 40 mg Documented by: Sotalol HCl (Betapace -) 80 mg PO BID [facility] Last Admin: 10/14/19 21:17 Dose: 80 mg Documented by: ASSESSMENT AND PLAN: Acute Hypoxic Respiratory Failure Suspected COVID19 Pneumonia ARDS Sepsis Paroxysmal Atrial Fibrillation CAD s/p CABG Aortic Stenosis s/p AVR HTN Hypercholesterolemia Anemia - continue antibiotics - titrate pressors to maintain MAP >65 - continue steroids - continue anticoagulation - rate control - titrate FiO2, PEEP to keep SpO2 >90% - monitor Pplat - sedate for vent synchrony - enteral feeds - DVT/GI prophylaxis - continue ICU monitoring - continue discussions regarding goals of care critical care time spent in reviewing chart, evaluating patient and formulating plan 35 min
[2019-10-15] MEDS: methylPREDNISolone NA SUCC 40 MG/1 ML VIAL IVPUSH SCH ×2 (10:56→21:05)
[2019-10-15] MEDS: APIXABAN 5 MG TABLET PO SCH ×2 (10:56→21:06)
[2019-10-15] MEDS: PANTOPRAZOLE SODIUM 40 MG VIAL IVPUSH SCH (10:56)
[2019-10-15] MEDS: SOTALOL HCL 80 MG TABLET (FP) PO SCH ×2 (10:57→21:06)
--- NOTE | 2019-10-15 11:30 | PN ---
Progress Note, Physician History of Present Illness: pt seen/ examined in icu chart reviewed intubated/sedated All f/u noted d/w icu team/ RN - Current Medication List Current Medications: Active Medications Acetaminophen (Tylenol -) 650 mg PO Q6H PRN PRN Reason: FEVER Last Admin: 10/13/19 17:17 Dose: 650 mg Documented by: Albuterol Sulfate (Ventolin Hfa Inhaler -) 2 puff IH Q4H PRN PRN Reason: SHORT OF BREATH/WHEEZING Apixaban (Eliquis -) 5 mg PO BID [facility] Last Admin: 10/15/19 10:56 Dose: 5 mg Documented by: Atorvastatin Calcium (Lipitor -) 40 mg PO HS [facility] Last Admin: 10/14/19 21:17 Dose: 40 mg Documented by: Chlorhexidine Gluconate (Hibiclens For Decolonization -) 1 applic TP HS [facility] Last Admin: 10/14/19 21:17 Dose: 1 applic Documented by: Norepinephrine Bitartrate (Levophed Bag - Ns) 16,000 mcg in 500 mls @ 9.375 mls/hr IVPB TITR [facility]; Protocol Last Titration: 10/15/19 09:00 Dose: 2 mcg/min, 3.75 mls/hr Documented by: Vasopressin 40 units/ Sodium (Chloride) 100 mls @ 5 mls/hr IVPB [facility]; Protocol Last Titration: 10/14/19 21:19 Dose: 0 units/hr, 0 mls/hr Documented by: Propofol (Diprivan -) 1,000,000 mcg in 100 mls @ 11.97 mls/hr IVPB TITR [facility]; Protocol Last Admin: 10/15/19 09:14 Dose: 15 mcg/kg/min, 5.985 mls/hr Documented by: Piperacillin Sod/Tazobactam (Sod 3.375 gm/ Dextrose) 50 mls @ 100 mls/hr IVPB Q8H-IV [facility]; Protocol Last Admin: 10/15/19 10:50 Dose: 100 mls/hr Documented by: Vancomycin HCl (Vancomycin (Pre-Docked)) 1,000 mg in 250 mls @ 166.667 mls/hr IVPB Q12H [facility]; Protocol Last Admin: 10/15/19 04:46 Dose: 166.667 mls/hr Documented by: Fentanyl (Sublimaze Ivpb) 500 mcg in 100 mls @ 1 mls/hr IVPB TITR [facility]; Protocol Last Admin: 10/15/19 04:45 Dose: 100 mcg/hr, 20 mls/hr Documented by: Insulin Aspart (Novolog Vial Sliding Scale -) 1 vial SQ TIDAC [facility]; Protocol Methylprednisolone Sodium Succinate (Solu-Medrol -) 30 mg IVPUSH BID [facility] Last Admin: 10/15/19 10:56 Dose: 30 mg Documented by: Metoprolol Tartrate (Lopressor Injection -) 5 mg IVPUSH Q4H PRN PRN Reason: TACHYCARDIA Last Admin: 10/13/19 23:25 Dose: 5 mg Documented by: Mirtazapine (Remeron -) 15 mg PO HS [facility] Last Admin: 10/14/19 21:17 Dose: Not Given Documented by: Pantoprazole Sodium (Protonix Iv) 40 mg IVPUSH DAILY [facility] Last Admin: 10/15/19 10:56 Dose: 40 mg Documented by: Sotalol HCl (Betapace -) 80 mg PO BID [facility] Last Admin: 10/15/19 10:57 Dose: 80 mg Documented by: - Objective Vital Signs: Vital Signs Temperature 98.2 F 10/14/19 18:00 Pulse Rate 102 H 10/15/19 09:00 Respiratory Rate 14 10/15/19 09:00 Blood Pressure 149/76 10/15/19 09:00 O2 Sat by Pulse Oximetry (%) 100 10/15/19 09:00 Cardiovascular: Yes: Pulse Irregular. No: Regular Rate and Rhythm Respiratory: Yes: Diminished Gastrointestinal: Yes: Soft Edema: LLE: 1+, RLE: 1+ Labs: CBC, BMP 10/15/19 05:30 10/15/19 06:00 INR, PTT INR 1.72 (0.83-1.09) H 10/15/19 05:30 Fibrinogen > 500.0 mg/dL (238-498) H 10/08/19 06:30 Problem List - Problems (1) Acute respiratory failure with hypoxia Code(s): J96.01 - ACUTE RESPIRATORY FAILURE WITH HYPOXIA (2) Atrial fibrillation Code(s): I48.91 - UNSPECIFIED ATRIAL FIBRILLATION (3) CAD (coronary artery disease) Code(s): I25.10 - ATHSCL HEART DISEASE OF [place] CORONARY ARTERY W/O ANG PCTRS Qualifiers: Coronary Disease-Associated Artery/Lesion type: [place] artery [place] vs. transplanted heart: [place] heart Associated angina: without angina Qualified Code(s): I25.10 - Atherosclerotic heart disease of [place] coronary artery without angina pectoris (4) History of depression Code(s): Z86.59 - PERSONAL HISTORY OF OTHER MENTAL AND BEHAVIORAL DISORDERS (5) S/P AVR (aortic valve replacement) Code(s): Z95.2 - PRESENCE OF PROSTHETIC HEART VALVE (6) Suspected 2019 novel coronavirus infection Code(s): Z20.828 - CONTACT W AND EXPOSURE TO [facility] VIRAL COMMUNICABLE DISEASES Assessment/Plan acute respiratory failure-- Intubated pneumonitis CHF decompensation Aflutter -- COVID negative -- on stress steroids --pressor support --s/p cardioversion -- --broad spectrum antibiotics weaning as tolerated Patient is DNR Continue present care Critical care time--approximately 35 minutes Will continue to follow
[2019-10-15] MEDS: INSULIN SLIDING SCALE (NOVOLOG) 1 VIAL SQ SCH ×2 (12:33→17:45)
--- NOTE | 2019-10-15 13:00 | PN ---
Progress Note, Physician Chief Complaint: INTUBATED SEDATED ON VENTILATOR AFEBRILE WBC WNL CXR B/L INFILTRATES SPUTUM KLEBSIELLA - Current Medication List Current Medications: Active Medications Acetaminophen (Tylenol -) 650 mg PO Q6H PRN PRN Reason: FEVER Last Admin: 10/13/19 17:17 Dose: 650 mg Documented by: Albuterol Sulfate (Ventolin Hfa Inhaler -) 2 puff IH Q4H PRN PRN Reason: SHORT OF BREATH/WHEEZING Apixaban (Eliquis -) 5 mg PO BID [facility] Last Admin: 10/15/19 10:56 Dose: 5 mg Documented by: Atorvastatin Calcium (Lipitor -) 40 mg PO HS [facility] Last Admin: 10/14/19 21:17 Dose: 40 mg Documented by: Chlorhexidine Gluconate (Hibiclens For Decolonization -) 1 applic TP HS [facility] Last Admin: 10/14/19 21:17 Dose: 1 applic Documented by: Norepinephrine Bitartrate (Levophed Bag - Ns) 16,000 mcg in 500 mls @ 9.375 mls/hr IVPB TITR [facility]; Protocol Last Titration: 10/15/19 11:00 Dose: 0 mcg/min, 0 mls/hr Documented by: Vasopressin 40 units/ Sodium (Chloride) 100 mls @ 5 mls/hr IVPB [facility]; Protocol Last Titration: 10/14/19 21:19 Dose: 0 units/hr, 0 mls/hr Documented by: Propofol (Diprivan -) 1,000,000 mcg in 100 mls @ 11.97 mls/hr IVPB TITR [facility]; Protocol Last Titration: 10/15/19 11:45 Dose: 15 mcg/kg/min, 5.985 mls/hr Documented by: Piperacillin Sod/Tazobactam (Sod 3.375 gm/ Dextrose) 50 mls @ 100 mls/hr IVPB Q8H-IV [facility]; Protocol Last Admin: 10/15/19 10:50 Dose: 100 mls/hr Documented by: Vancomycin HCl (Vancomycin (Pre-Docked)) 1,000 mg in 250 mls @ 166.667 mls/hr IVPB Q12H [facility]; Protocol Last Admin: 10/15/19 04:46 Dose: 166.667 mls/hr Documented by: Fentanyl (Sublimaze Ivpb) 500 mcg in 100 mls @ 1 mls/hr IVPB TITR [facility]; Protocol Last Admin: 10/15/19 04:45 Dose: 100 mcg/hr, 20 mls/hr Documented by: Insulin Aspart (Novolog Vial Sliding Scale -) 1 vial SQ TIDAC [facility]; Protocol Last Admin: 10/15/19 12:33 Dose: 10 units Documented by: Methylprednisolone Sodium Succinate (Solu-Medrol -) 30 mg IVPUSH BID [facility] Last Admin: 10/15/19 10:56 Dose: 30 mg Documented by: Metoprolol Tartrate (Lopressor Injection -) 5 mg IVPUSH Q4H PRN PRN Reason: TACHYCARDIA Last Admin: 10/13/19 23:25 Dose: 5 mg Documented by: Mirtazapine (Remeron -) 15 mg PO HS [facility] Last Admin: 10/14/19 21:17 Dose: Not Given Documented by: Pantoprazole Sodium (Protonix Iv) 40 mg IVPUSH DAILY [facility] Last Admin: 10/15/19 10:56 Dose: 40 mg Documented by: Sotalol HCl (Betapace -) 80 mg PO BID [facility] Last Admin: 10/15/19 10:57 Dose: 80 mg Documented by: - Objective Vital Signs: Vital Signs Temperature 99.8 F H 10/15/19 10:00 Pulse Rate 100 H 10/15/19 12:00 Respiratory Rate 14 10/15/19 12:00 Blood Pressure 112/50 L 10/15/19 12:00 O2 Sat by Pulse Oximetry (%) 99 10/15/19 12:01 Constitutional: Yes: No Distress Cardiovascular: Yes: Regular Rate and Rhythm, S1, S2 Respiratory: Yes: Mechanically Ventilated Gastrointestinal: Yes: Normal Bowel Sounds, Soft. No: Tenderness Edema: No Labs: CBC, BMP 10/15/19 05:30 10/15/19 06:00 INR, PTT INR 1.72 (0.83-1.09) H 10/15/19 05:30 Fibrinogen > 500.0 mg/dL (238-498) H 10/08/19 06:30 Assessment/Plan BILATERAL INFILTRATES ? PNEUMONITIS ? CHF RESP FAILURE S/P TAVR COVID -19 (-) X5 CONTINUE EMPIRIC ZOSYN/VANCO VENTILATORY SUPPORT
[2019-10-15] MEDS ORDERED: fentaNYL CITRATE 250 MCG/5 ML VIAL ONE (14:36)
--- NOTE | 2019-10-15 17:13 | PN ---
Progress Note (short form) - Note Progress Note: Palliative care f/up remains intubated off pressors, on 50 % Fio2 now DNR 78yo male with h/o HTN, hyperlipidemia, atrial fibrillation, LV diastolic dysfunction, CAD s/p CABG, angina, s/p bioprosthetic AVR with resection of LA appendage, hx of GI bleed with multiple recent admissions ( 08/31- 09/12, 09/19-09/21, 09/22- current) for hypoxia and suspected COVID19 ( tested negative multiple times) , o2 dependent. + depression/ anxiety, worsening debility currently in ICU I have had conversations with patient's son Shreyas- Family is aware of his guarded prognosis given underlying comorbidities. Family have made him DNR. They are hoping and praying for a miracle. We discussed withdrawal of care including discontinuing a/bs, pressors, compassionate extubation. We discussed what Osito's wishes would have been in this current situation given how unhappy he was when he was o2 dependent last month. Family would like to observe for any improvement. They would not want Osito to be hooked onto tubes for a prolonged period of time. They will not opt for trach/ PEG as per my previous conversations with the family. They are aware that all supportive measures will continue for now but if family decides for withdrawal of care and comfort measures Osito will receive medications to keep him comfortable. Obie Cruz MD [phone] Problem List - Problems (1) Acute on chronic diastolic (congestive) heart failure Code(s): I50.33 - ACUTE ON CHRONIC DIASTOLIC (CONGESTIVE) HEART FAILURE (2) Acute respiratory failure with hypoxia Code(s): J96.01 - ACUTE RESPIRATORY FAILURE WITH HYPOXIA (3) Atrial flutter Code(s): I48.92 - UNSPECIFIED ATRIAL FLUTTER Qualifiers: Atrial flutter type: typical Qualified Code(s): I48.3 - Typical atrial flutter (4) Depression Code(s): F32.9 - MAJOR DEPRESSIVE DISORDER, SINGLE EPISODE, UNSPECIFIED Qualifiers: Depression Type: other depression Qualified Code(s): F32.89 - Other specified depressive episodes (5) Failure to thrive in adult Code(s): R62.7 - ADULT FAILURE TO THRIVE (6) S/P AVR (aortic valve replacement) Code(s): Z95.2 - PRESENCE OF PROSTHETIC HEART VALVE (7) S/P left atrial appendage ligation Code(s): Z98.890 - OTHER SPECIFIED POSTPROCEDURAL STATES (8) Suspected COVID-19 virus infection Code(s): Z20.828 - CONTACT W AND EXPOSURE TO [facility] VIRAL COMMUNICABLE DISEASES
--- NOTE | 2019-10-15 18:21 | PN ---
Physical Exam: SUBJECTIVE: Patient seen and examined. Pt sedated and intubated. OBJECTIVE: GENERAL: The patient is sedated and intubated. HEAD: Normal with no signs of trauma. ENT: Ears normal, nares patent, pt intubated NECK: Trachea midline. LUNGS: Rhonchi on bilateral lung olvera HEART: Regular rate and rhythm ABDOMEN: Soft, nontender, nondistended, normoactive bowel sounds EXTREMITIES: 2+ pulses, bilateral lower ext edema SKIN: Warm, dry, normal turgor, no rashes or lesions noted Vital Signs Period Temp Pulse Resp BP Sys/Amador Pulse Ox Last 24 Hr 98.8 F-99.8 F 0-129 10- 55-155/32-79 98-100 Laboratory Results - last 24 hr 10/15/19 10/15/19 10/15/19 05:30 05:30 05:40 WBC 6.5 RBC 2.65 L Hgb 7.9 L Hct 24.1 L MCV 91.2 MCH 29.9 MCHC 32.8 RDW 15.6 Plt Count 167 D MPV 10.0 Absolute Neuts (auto) 5.8 Neutrophils % 88.5 H Neutrophils % (Manual) 87.8 H Band Neutrophils % 0.0 Lymphocytes % 8.1 D Lymphocytes % (Manual) 9.2 D Monocytes % 3.2 L Monocytes % (Manual) 2 L D Eosinophils % 0.1 Eosinophils % (Manual) 0.0 Basophils % 0.1 Basophils % (Manual) 0.0 Myelocytes % (Man) 0 Promyelocytes % (Man) 0 Blast Cells % (Manual) 0 Nucleated RBC % 0 Metamyelocytes 0 Hypochromia 0 Platelet Estimate Normal Polychromasia 1+ Poikilocytosis 0 Anisocytosis 0 Microcytosis 0 Macrocytosis 0 PT with INR 20.40 H INR 1.72 H PTT (Actin FS) 25.5 Anticoagulation Therapy No Result Required. Puncture Site Left radial Patient Temperature No Result Required. ABG pH 7.400 ABG pCO2 41.50 ABG pO2 128.2 H ABG HCO3 25.1 ABG O2 Sat (Measured) 98.6 H ABG O2 Content No Result Required. ABG Base Excess 0.3 Polo Test Positive Patient On Oxygen Yes O2 Delivery Device Vent Oxygen Flow Rate 50% Vent Mode A/c Vent Rate 14 Mechanical Rate Yes PEEP 5.0 Pressure Support Vent 450 Sodium Potassium Chloride Carbon Dioxide Anion Gap BUN Creatinine Est GFR (CKD-EPI)AfAm Est GFR (CKD-EPI)NonAf POC Glucometer Random Glucose Calcium Total Bilirubin AST ALT Alkaline Phosphatase Total Protein Albumin Vancomycin Pre-Dose 10/15/19 10/15/19 10/15/19 06:00 12:31 16:30 WBC RBC Hgb Hct MCV MCH MCHC RDW Plt Count MPV Absolute Neuts (auto) Neutrophils % Neutrophils % (Manual) Band Neutrophils % Lymphocytes % Lymphocytes % (Manual) Monocytes % Monocytes % (Manual) Eosinophils % Eosinophils % (Manual) Basophils % Basophils % (Manual) Myelocytes % (Man) Promyelocytes % (Man) Blast Cells % (Manual) Nucleated RBC % Metamyelocytes Hypochromia Platelet Estimate Polychromasia Poikilocytosis Anisocytosis Microcytosis Macrocytosis PT with INR INR PTT (Actin FS) Anticoagulation Therapy Puncture Site Patient Temperature ABG pH ABG pCO2 ABG pO2 ABG HCO3 ABG O2 Sat (Measured) ABG O2 Content ABG Base Excess Polo Test Patient On Oxygen O2 Delivery Device Oxygen Flow Rate Vent Mode Vent Rate Mechanical Rate PEEP Pressure Support Vent Sodium 141 Potassium 4.3 Chloride 107 Carbon Dioxide 29 Anion Gap 5 L BUN 37.1 H Creatinine 0.6 Est GFR (CKD-EPI)AfAm 112.40 Est GFR (CKD-EPI)NonAf 96.98 POC Glucometer 355 Random Glucose 311 H Calcium 6.6 L* Total Bilirubin 1.1 H AST 19 ALT 22 Alkaline Phosphatase 57 Total Protein 5.0 L Albumin 1.4 L Vancomycin Pre-Dose 21.0 H 10/15/19 18:00 WBC RBC Hgb Hct MCV MCH MCHC RDW Plt Count MPV Absolute Neuts (auto) Neutrophils % Neutrophils % (Manual) Band Neutrophils % Lymphocytes % Lymphocytes % (Manual) Monocytes % Monocytes % (Manual) Eosinophils % Eosinophils % (Manual) Basophils % Basophils % (Manual) Myelocytes % (Man) Promyelocytes % (Man) Blast Cells % (Manual) Nucleated RBC % Metamyelocytes Hypochromia Platelet Estimate Polychromasia Poikilocytosis Anisocytosis Microcytosis Macrocytosis PT with INR INR PTT (Actin FS) Anticoagulation Therapy Puncture Site Patient Temperature ABG pH ABG pCO2 ABG pO2 ABG HCO3 ABG O2 Sat (Measured) ABG O2 Content ABG Base Excess Polo Test Patient On Oxygen O2 Delivery Device Oxygen Flow Rate Vent Mode Vent Rate Mechanical Rate PEEP Pressure Support Vent Sodium Potassium Chloride Carbon Dioxide Anion Gap BUN Creatinine Est GFR (CKD-EPI)AfAm Est GFR (CKD-EPI)NonAf POC Glucometer 281 Random Glucose Calcium Total Bilirubin AST ALT Alkaline Phosphatase Total Protein Albumin Vancomycin Pre-Dose Active Medications Generic Name Dose Route Start Last Admin Trade Name Freq PRN Reason Stop Dose Admin Acetaminophen 650 mg 10/06/19 00:25 10/13/19 17:17 Tylenol - PO 650 mg Q6H PRN Administration FEVER Albuterol Sulfate 2 puff 10/06/19 00:25 Ventolin Hfa Inhaler - IH Q4H PRN SHORT OF BREATH/WHEEZING Apixaban 5 mg 10/06/19 10:00 10/15/19 10:56 Eliquis - PO 5 mg BID MAGI Administration Atorvastatin Calcium 40 mg 10/06/19 22:00 10/14/19 21:17 Lipitor - PO 40 mg HS MAGI Administration Chlorhexidine Gluconate 1 applic 10/06/19 22:00 10/14/19 21:17 Hibiclens For Decolonization - TP 1 applic HS MAGI Administration Norepinephrine Bitartrate 16,000 mcg in 500 mls @ 9.375 mls/hr 10/06/19 07:45 10/15/19 11:00 Levophed Bag - Ns IVPB 0 mcg/min TITR MAGI 0 mls/hr Titration Protocol 5 MCG/MIN Vasopressin 40 units/ Sodium 100 mls @ 5 mls/hr 10/06/19 09:15 10/14/19 21:19 Chloride IVPB 0 units/hr ASDIR MAGI 0 mls/hr Titration Protocol 2 UNITS/HR Propofol 1,000,000 mcg in 100 mls @ 11.97 mls/hr 10/11/19 14:30 10/15/19 17:51 Diprivan - IVPB 15 mcg/kg/min TITR MAGI 5.985 mls/hr Administration Protocol 30 MCG/KG/MIN Piperacillin Sod/Tazobactam 50 mls @ 100 mls/hr 10/12/19 16:15 10/15/19 17:55 Sod 3.375 gm/ Dextrose IVPB 100 mls/hr Q8H-IV MAGI Administration Protocol Vancomycin HCl 1,000 mg in 250 mls @ 166.667 mls/hr 10/12/19 16:00 10/15/19 17:55 Vancomycin (Pre-Docked) IVPB Not Given Q12H MAGI Protocol Fentanyl 500 mcg in 100 mls @ 1 mls/hr 10/13/19 02:30 10/15/19 14:00 Sublimaze Ivpb IVPB 100 mcg/hr TITR MAGI 20 mls/hr Administration Protocol 5 MCG/HR Insulin Aspart 1 vial 10/15/19 11:15 10/15/19 17:45 Novolog Vial Sliding Scale - SQ 6 units TIDAC MAGI Administration Protocol Methylprednisolone Sodium Succinate 30 mg 10/13/19 22:00 10/15/19 10:56 Solu-Medrol - IVPUSH 30 mg BID MAGI Administration Metoprolol Tartrate 5 mg 10/12/19 21:13 10/13/19 23:25 Lopressor Injection - IVPUSH 5 mg Q4H PRN Administration TACHYCARDIA Mirtazapine 15 mg 10/06/19 22:00 10/14/19 21:17 Remeron - PO Not Given HS MAGI Pantoprazole Sodium 40 mg 10/06/19 11:15 10/15/19 10:56 Protonix Iv IVPUSH 40 mg DAILY MAGI Administration Sotalol HCl 80 mg 10/10/19 22:30 10/15/19 10:57 Betapace - PO 80 mg BID MAGI Administration ASSESSMENT/PLAN: 78 yo male DNR with Pmh afib (on eliquis), angina, chf, htn, gi bleed, recent admission for covid afib and acs in ICU for acute hypoxic resp failure to possible COVID pneumonitis vs ARDS. Neuro - sedated on fentanyl and propofol. Pt had sedation vacation and was responding to stimuli and command. - Held mirtazapine for depression CV - afib (periods rapid ventricular response s/p DCCV to initially MAT now ?sinus with APC) chf, htn, hld. Persistent aflutter with periods rvr s/p cardioversion - eliquis 5mg bid -sotalol 80 mg PO BID check QTc below 500 - Cont atorvastatin 40mg QD - Pt was tachycardic last night was given Lopressor. Pt BP dropped bellow 50 and was given vasopressin. Pt was put back on central line placed in left IJ. If vasopressin is elevated will put pt back on levo. Cardiology consult will consider cardizem IV prn depending BP. Pulm - Possible COvid pneumonitis. Acute hypoxic resp failure due to ARDS - Started pt on Medro 30 BID - Intubated on 10/04 due to resp failure - rate control - titrate FiO2, PEEP to keep SpO2 >90% - pt overbreathing vent today pH 7.48 pCO2 33.4 pO2 146.8 Spo2 99.1. - Pt vent settings were rate 24, volume 480, PEEP 6, FiO2 50% Pplat 23. If PPlat <20 will start weaning off sedation. - sedate for vent synchrony ID - Vanco (10/11 BID)/ zosyn (10/11 3.375 q 8) - ID consult appreciated - CXR was ordered- showing slight improvement in aeration since 10/10 - vancomycin level elevated held vanc Renal No acute issues -Monitor I/O's, Cr and electrolytes Heme - stool occult negative - Hgb back up to 8.4. Will continue to monitor GI - h/o GI bleed - no acute issues - c/w protonix Endo - Pt glucose remains to be elevated. Consult director of product marketing. - Sliding scale started (10/14) LTD -Smiley 10/04 - intubation 10/04 - Pt [facility] 10/13 Prophylaxis - DVT- SCD/ eliquis - GI- protonix Visit type - Emergency Visit Emergency Visit: Yes ED Registration Date: 09/23/19 Care time: The patient presented to the Emergency Department on the above date and was hospitalized for further evaluation of their emergent condition. - New Patient This patient is new to me today: No - Critical Care Critical Care patient: Yes Total Critical Care Time (in minutes): 36 Critical Care Statement: The care of this patient involved high complexity decision making to prevent further life threatening deterioration of the patient's condition and/or to evaluate & treat vital organ system(s) failure or risk of failure. - Medication Review Med list reviewed for High Risk Meds patients 65 and older: Yes ATTENDING PHYSICIAN STATEMENT I saw and evaluated the patient. I reviewed the resident's note and discussed the case with the resident. I agree with the resident's findings and plan as documented. SUBJECTIVE: OBJECTIVE: ASSESSMENT AND PLAN:
[2019-10-15] MEDS: METOPROLOL TARTRATE 5 MG/5 ML VIAL IVPUSH PRN (20:02)
[2019-10-15] MEDS: MIRTAZAPINE 15 MG TABLET (FP) PO SCH (21:06)
[2019-10-15] MEDS: ATORVASTATIN CA 40 MG TABLET (FP) PO SCH (21:06)
[2019-10-15] MEDS: CHLORHEXIDINE GLUCONATE 4% CLEANSER FOR DECOLONIZATION TP SCH (21:06)
[2019-10-16] MEDS: FENTANYL IVPB 500 MCG/100 ML BAG IVPB SCH ×3 (01:00→22:00)
[2019-10-16] MEDS ORDERED: PIPERACILLIN/TAZOBACTAM 3.375 GM VIAL IVPB ONE ×3 (01:11→17:24)
[2019-10-16] MEDS ORDERED: DEXTROSE 5%-WATER - 50 ML IVPB ONE ×3 (01:11→17:24)
[2019-10-16] MEDS: PIPERACILLIN/TAZOB 3.375 GM 3.375 GM in DEXTROSE 5%-WATER - 50 ML IVPB SCH ×3 (01:15→17:33)
[2019-10-16] MEDS: VANCOMYCIN 1 GRAM (PRE-DOCKED) 1,000 MG/250 ML BAG IVPB SCH ×2 (04:30→17:37)
[2019-10-16 06:10] LABS: ARTERIAL BLD GAS O2 SATURATION 98.2 mmHg (95-98); ARTERIAL BLOOD GAS PO2 107.6 mmHg (80-100); ARTERIAL BLOOD GAS pH 7.465 (7.350-7.450)
[2019-10-16] MEDS: INSULIN SLIDING SCALE (NOVOLOG) 1 VIAL SQ SCH ×3 (06:14→15:32)
[2019-10-16 07:00] LABS: ALLENS TEST POSITIVE
[2019-10-16 07:02] LABS: VENT MODE A/C; VENT RATE 14
--- NOTE | 2019-10-16 07:05 | PN ---
Progress Note (short form) - Note Progress Note: Chief Complaint: Events noted, notes reviewed, remains intubated and sedated, remains on pressors, rhythm is sinus with frequent premature supraventricular contractions History of Present Illness: Seen and examined in the ICU. Events noted, notes reviewed, remains intubated and sedated, remains on pressors, rhythm is sinus with frequent premature supraventricular contractions Medications: Current Medications Generic Name Dose Route Start Last Admin Trade Name Freq PRN Reason Stop Dose Admin Acetaminophen 650 mg 10/06/19 00:25 10/13/19 17:17 Tylenol - PO 650 mg Q6H PRN Administration FEVER Albuterol Sulfate 2 puff 10/06/19 00:25 Ventolin Hfa Inhaler - IH Q4H PRN SHORT OF BREATH/WHEEZING Apixaban 5 mg 10/06/19 10:00 10/15/19 21:06 Eliquis - PO 5 mg BID MAGI Administration Atorvastatin Calcium 40 mg 10/06/19 22:00 10/15/19 21:06 Lipitor - PO 40 mg HS MAGI Administration Chlorhexidine Gluconate 1 applic 10/06/19 22:00 10/15/19 21:06 Hibiclens For Decolonization - TP 1 applic HS MAGI Administration Norepinephrine Bitartrate 16,000 mcg in 500 mls @ 9.375 mls/hr 10/06/19 07:45 10/15/19 11:00 Levophed Bag - Ns IVPB 0 mcg/min TITR MAGI 0 mls/hr Titration Protocol 5 MCG/MIN Vasopressin 40 units/ Sodium 100 mls @ 5 mls/hr 10/06/19 09:15 10/14/19 21:19 Chloride IVPB 0 units/hr ASDIR MAGI 0 mls/hr Titration Protocol 2 UNITS/HR Propofol 1,000,000 mcg in 100 mls @ 11.97 mls/hr 10/11/19 14:30 10/15/19 17:51 Diprivan - IVPB 15 mcg/kg/min TITR MAGI 5.985 mls/hr Administration Protocol 30 MCG/KG/MIN Piperacillin Sod/Tazobactam 50 mls @ 100 mls/hr 10/12/19 16:15 10/16/19 01:15 Sod 3.375 gm/ Dextrose IVPB 100 mls/hr Q8H-IV MAGI Administration Protocol Vancomycin HCl 1,000 mg in 250 mls @ 166.667 mls/hr 10/12/19 16:00 10/16/19 04:30 Vancomycin (Pre-Docked) IVPB 166.667 mls/hr Q12H ON LICENSE OF [facility] Administration Protocol Fentanyl 500 mcg in 100 mls @ 1 mls/hr 10/13/19 02:30 10/16/19 04:06 Sublimaze Ivpb IVPB Not Given TITR MAGI Protocol 5 MCG/HR Insulin Aspart 1 vial 10/15/19 11:15 10/16/19 06:14 Novolog Vial Sliding Scale - SQ 10 units TIDAC ON LICENSE OF [facility] Administration Protocol Methylprednisolone Sodium Succinate 30 mg 10/13/19 22:00 10/15/19 21:05 Solu-Medrol - IVPUSH 30 mg BID ON LICENSE OF [facility] Administration Metoprolol Tartrate 5 mg 10/12/19 21:13 10/15/19 20:02 Lopressor Injection - IVPUSH 5 mg Q4H PRN Administration TACHYCARDIA Mirtazapine 15 mg 10/06/19 22:00 10/15/19 21:06 Remeron - PO Not Given [facility] Pantoprazole Sodium 40 mg 10/06/19 11:15 10/15/19 10:56 Protonix Iv IVPUSH 40 mg DAILY ON LICENSE OF [facility] Administration Sotalol HCl 80 mg 10/10/19 22:30 10/15/19 21:06 Betapace - PO 80 mg BID ON LICENSE OF [facility] Administration Review of Systems Unable to obtain/sedated and intubated Vital Signs: Last Vital Signs Temp Pulse Resp BP Pulse Ox 98.9 F 98 H 15 149/76 100 10/16/19 06:00 10/16/19 06:00 10/16/19 06:00 10/16/19 06:00 10/16/19 06:00 Intake & Output 10/13/19 10/14/19 10/15/19 10/16/19 23:59 23:59 23:59 23:59 Intake Total 2300 1727 1996 1272 Output Total 1050 1040 2800 750 Balance 1250 687 -804 522 Weight 147 lb 14.883 oz 155 lb 10.342 oz 154 lb 12.232 oz 154 lb 8.705 oz Neck: Supple Negative JVD Respiratory: Diminished Breath Sounds at the Bases Cardiovascular: S1 S2 Regular with frequent ectopics grade 2/6 systolic ejection murmur Gastrointestinal: Soft Benign Normal Bowel Sounds Ext: Negative Edema Labs: CBC, BMP 10/16/19 07:55 10/16/19 07:55 CBC, BMP 10/15/19 05:30 10/15/19 06:00 Hepatic Panel Total Bilirubin 1.1 mg/dL (0.2-1) H 10/15/19 06:00 AST 19 U/L (15-37) 10/15/19 06:00 ALT 22 U/L (13-61) 10/15/19 06:00 Alkaline Phosphatase 57 U/L (45-117) 10/15/19 06:00 Albumin 1.4 g/dl (3.4-5.0) L 10/15/19 06:00 INR, PTT INR 1.72 (0.83-1.09) H 10/15/19 05:30 Fibrinogen > 500.0 mg/dL (238-498) H 10/08/19 06:30 Assessment/Plan ASSESSMENT: 1. Clinical presentation is consistent with acute hypoxic respiratory failure related to bronchopneumonia with sepsis syndrome, coronavirus/COVID 19- persistent residual infiltrates 2. Diastolic left ventricular dysfunction with chronic class I-II NYHA classification left ventricular failure 3. Paroxysmal atrial flutter [id number] score of 5 post cardioversion on DOA C's/Eliquis 4. CAD post CABG with evidence of demand ischemia related to the above-noted clinical presentation angina pectoris 5. Aortic valve stenosis post SAVR/bio-prosthesis- with LA appendage ligation 6. Hypertensive cardiovascular disease, currently hypotensive related to the above-noted sepsis syndrome 7. Hyperglycemia- diabetes mellitus 8. Hypercholesterolemia 9. History of altered mental status etiology of which was unclear- prior history of clinical depression 10. Prerenal azotemia 11. History of bacteremia- endocarditis unlikely 12. Anemia PLAN: 1. Continue Sotalol with caution and close monitoring of QTc interval 2. May utilize intravenous Cardizem therapy with caution as needed hemodynamics permitting 3. Continue Atorvastatin therapy 4. Continue DOAC's/Eliquis therapy with caution and close monitoring of hemoglobin level, maintaining hemoglobin level equal or greater than 8.0 5. Withhold Lasix therapy in view of the above-noted prerenal azotemia 6. Attempt to wean off pressors hemodynamics permitting maintaining mean arterial pressure greater than 65 mmHg 7. Antibiotics as per the primary team Kate Ang MD
[2019-10-16 08:26] LABS: BASO % 0.5 % (0-2.0); HEMATOCRIT 24.9 % (35.4-49); HEMOGLOBIN 8.1 GM/dL (11.7-16.9); LYMPH % 5.9 % (8-40); MCHC 32.6 g/dl (32.0-35.9); MEAN PLT VOLUME 9.7 fl (7.5-11.1); NEUT % 89.6 % (42.8-82.8); PLATELET COUNT 204 K/MM3 (134-434); RBC 2.71 M/mm3 (4.00-5.60); RDW 16.6 % (11.9-15.9); WHITE BLOOD COUNT 9.4 K/mm3 (4.0-10.0)
[2019-10-16 08:46] LABS: INR 1.58 (0.83-1.09); PROTHROMBIN TIME (PATIENT) 18.7 SEC (9.7-13.0)
[2019-10-16 08:49] LABS: ACTIVATED PTT 23.6 SECONDS (25.2-36.5)
[2019-10-16 09:01] LABS: ALBUMIN 1.6 g/dl (3.4-5.0); BILIRUBIN,TOTAL 0.8 mg/dL (0.2-1); BLOOD UREA NITROGEN 35.2 mg/dL (7-18); CREATININE 0.7 mg/dL (0.55-1.3); POTASSIUM 4.1 mmol/L (3.5-5.1); TOT PROT 4.9 g/dl (6.4-8.2)
[2019-10-16] MEDS ORDERED: PT OWN MED DRAWER 7, Y5N ONE (09:01)
[2019-10-16] MEDS: methylPREDNISolone NA SUCC 40 MG/1 ML VIAL IVPUSH SCH ×2 (09:07→21:08)
[2019-10-16] MEDS: SOTALOL HCL 80 MG TABLET (FP) PO SCH ×2 (09:07→21:09)
[2019-10-16] MEDS: APIXABAN 5 MG TABLET PO SCH ×2 (09:07→21:09)
[2019-10-16] MEDS: PANTOPRAZOLE SODIUM 40 MG VIAL IVPUSH SCH (09:07)
[2019-10-16] MEDS: METOPROLOL TARTRATE 5 MG/5 ML VIAL IVPUSH PRN (09:08)
[2019-10-16 09:54] LABS: PLATELET ESTIMATE NORMAL
--- NOTE | 2019-10-16 10:54 | PN ---
Teaching Attending Note Name of Resident: Rubin Valdes ATTENDING PHYSICIAN STATEMENT I saw and evaluated the patient. I reviewed the resident's note and discussed the case with the resident. I agree with the resident's findings and plan as documented. SUBJECTIVE: Pt seen and examined in the ICU. Remains intubated, sedated on low dose levophed gtt. Vented on volume assist control with 50% FiO2, PEEP decreased to 5. Pplat 19. OBJECTIVE: Vital Signs Period Temp Pulse Resp BP Sys/Amador Pulse Ox Last 24 Hr 98.0 F-98.9 F 85-129 14-25 80-149/45-83 98-100 Intake & Output 10/13/19 10/14/19 10/15/19 10/16/19 23:59 23:59 23:59 23:59 Intake Total 2300 1727 1996 1272 Output Total 1050 1040 2800 750 Balance 1250 687 -804 522 Weight 67.1 kg 70.6 kg 70.2 kg 70.1 kg Gen: intubated, sedated Heart: RRR Lung: scattered rhonchi Abd: soft, nontender Ext: + edema CBC, BMP 10/16/19 07:55 10/16/19 07:55 Active Medications Acetaminophen (Tylenol -) 650 mg PO Q6H PRN PRN Reason: FEVER Last Admin: 10/13/19 17:17 Dose: 650 mg Documented by: Albuterol Sulfate (Ventolin Hfa Inhaler -) 2 puff IH Q4H PRN PRN Reason: SHORT OF BREATH/WHEEZING Apixaban (Eliquis -) 5 mg PO BID [facility] Last Admin: 10/16/19 09:07 Dose: 5 mg Documented by: Atorvastatin Calcium (Lipitor -) 40 mg PO [facility] Last Admin: 10/15/19 21:06 Dose: 40 mg Documented by: Chlorhexidine Gluconate (Hibiclens For Decolonization -) 1 applic TP [facility] Last Admin: 10/15/19 21:06 Dose: 1 applic Documented by: Norepinephrine Bitartrate (Levophed Bag - Ns) 16,000 mcg in 500 mls @ 9.375 mls/hr IVPB TITR [facility]; Protocol Last Titration: 10/15/19 11:00 Dose: 0 mcg/min, 0 mls/hr Documented by: Vasopressin 40 units/ Sodium (Chloride) 100 mls @ 5 mls/hr IVPB ASDIR [facility]; Protocol Last Titration: 10/14/19 21:19 Dose: 0 units/hr, 0 mls/hr Documented by: Propofol (Diprivan -) 1,000,000 mcg in 100 mls @ 11.97 mls/hr IVPB TITR [facility]; Protocol Last Titration: 10/16/19 08:24 Dose: 15 mcg/kg/min, 5.985 mls/hr Documented by: Piperacillin Sod/Tazobactam (Sod 3.375 gm/ Dextrose) 50 mls @ 100 mls/hr IVPB Q8H-IV [facility]I; Protocol Last Admin: 10/16/19 09:07 Dose: 100 mls/hr Documented by: Vancomycin HCl (Vancomycin (Pre-Docked)) 1,000 mg in 250 mls @ 166.667 mls/hr IVPB Q12H [facility]; Protocol Last Admin: 10/16/19 04:30 Dose: 166.667 mls/hr Documented by: Fentanyl (Sublimaze Ivpb) 500 mcg in 100 mls @ 1 mls/hr IVPB TITR [facility]; Protocol Last Admin: 10/16/19 04:06 Dose: Not Given Documented by: Insulin Aspart (Novolog Vial Sliding Scale -) 1 vial SQ TIDAC [facility]; Protocol Last Admin: 10/16/19 06:14 Dose: 10 units Documented by: Methylprednisolone Sodium Succinate (Solu-Medrol -) 30 mg IVPUSH BID [facility] Last Admin: 10/16/19 09:07 Dose: 30 mg Documented by: Metoprolol Tartrate (Lopressor Injection -) 5 mg IVPUSH Q4H PRN PRN Reason: TACHYCARDIA Last Admin: 10/16/19 09:08 Dose: 5 mg Documented by: Mirtazapine (Remeron -) 15 mg PO HS [facility] Last Admin: 10/15/19 21:06 Dose: Not Given Documented by: Pantoprazole Sodium (Protonix Iv) 40 mg IVPUSH DAILY [facility] Last Admin: 10/16/19 09:07 Dose: 40 mg Documented by: Sotalol HCl (Betapace -) 80 mg PO BID [facility] Last Admin: 10/16/19 09:07 Dose: 80 mg Documented by: ASSESSMENT AND PLAN: Acute Hypoxic Respiratory Failure Suspected COVID19 Pneumonia ARDS Sepsis Paroxysmal Atrial Fibrillation CAD s/p CABG Aortic Stenosis s/p AVR HTN Hypercholesterolemia Anemia - continue antibiotics - off pressors, maintain MAP >65 - continue steroids - continue anticoagulation - rate control - titrate FiO2, PEEP to keep SpO2 >90% - monitor Pplat - lighten sedation to assess mental status - spontaneous breathing trials as tolerated when mental status improved - enteral feeds - DVT/GI prophylaxis - continue ICU monitoring critical care time spent in reviewing chart, evaluating patient and formulating plan 35 min
--- NOTE | 2019-10-16 11:09 | PN ---
Progress Note, Physician History of Present Illness: pt seen/ examined in icu chart reviewed intubated off sedation now-- awake All f/u noted d/w icu team/ RN again toady bgm noted-- high On steroids will add basal insulin - Current Medication List Current Medications: Active Medications Acetaminophen (Tylenol -) 650 mg PO Q6H PRN PRN Reason: FEVER Last Admin: 10/13/19 17:17 Dose: 650 mg Documented by: Albuterol Sulfate (Ventolin Hfa Inhaler -) 2 puff IH Q4H PRN PRN Reason: SHORT OF BREATH/WHEEZING Apixaban (Eliquis -) 5 mg PO BID [facility] Last Admin: 10/16/19 09:07 Dose: 5 mg Documented by: Atorvastatin Calcium (Lipitor -) 40 mg PO HS [facility] Last Admin: 10/15/19 21:06 Dose: 40 mg Documented by: Chlorhexidine Gluconate (Hibiclens For Decolonization -) 1 applic TP HS [facility] Last Admin: 10/15/19 21:06 Dose: 1 applic Documented by: Norepinephrine Bitartrate (Levophed Bag - Ns) 16,000 mcg in 500 mls @ 9.375 mls/hr IVPB TITR [facility]; Protocol Last Titration: 10/15/19 11:00 Dose: 0 mcg/min, 0 mls/hr Documented by: Vasopressin 40 units/ Sodium (Chloride) 100 mls @ 5 mls/hr IVPB ASDIR [facility]; Protocol Last Titration: 10/14/19 21:19 Dose: 0 units/hr, 0 mls/hr Documented by: Propofol (Diprivan -) 1,000,000 mcg in 100 mls @ 11.97 mls/hr IVPB TITR [facility]; Protocol Last Titration: 10/16/19 10:29 Dose: 0 mcg/kg/min, 0 mls/hr Documented by: Piperacillin Sod/Tazobactam (Sod 3.375 gm/ Dextrose) 50 mls @ 100 mls/hr IVPB Q8H-IV [facility]; Protocol Last Admin: 10/16/19 09:07 Dose: 100 mls/hr Documented by: Vancomycin HCl (Vancomycin (Pre-Docked)) 1,000 mg in 250 mls @ 166.667 mls/hr IVPB Q12H [facility]; Protocol Last Admin: 10/16/19 04:30 Dose: 166.667 mls/hr Documented by: Fentanyl (Sublimaze Ivpb) 500 mcg in 100 mls @ 1 mls/hr IVPB TITR [facility]; Protocol Last Titration: 10/16/19 10:29 Dose: 0 mcg/hr, 0 mls/hr Documented by: Insulin Aspart (Novolog Vial Sliding Scale -) 1 vial SQ TIDAC [facility]; Protocol Last Admin: 10/16/19 10:52 Dose: 6 units Documented by: Methylprednisolone Sodium Succinate (Solu-Medrol -) 30 mg IVPUSH BID [facility] Last Admin: 10/16/19 09:07 Dose: 30 mg Documented by: Metoprolol Tartrate (Lopressor Injection -) 5 mg IVPUSH Q4H PRN PRN Reason: TACHYCARDIA Last Admin: 10/16/19 09:08 Dose: 5 mg Documented by: Mirtazapine (Remeron -) 15 mg PO HS [facility] Last Admin: 10/15/19 21:06 Dose: Not Given Documented by: Pantoprazole Sodium (Protonix Iv) 40 mg IVPUSH DAILY [facility] Last Admin: 10/16/19 09:07 Dose: 40 mg Documented by: Sotalol HCl (Betapace -) 80 mg PO BID [facility] Last Admin: 10/16/19 09:07 Dose: 80 mg Documented by: - Objective Vital Signs: Vital Signs Temperature 98.8 F 10/16/19 10:00 Pulse Rate 85 10/16/19 10:00 Respiratory Rate 25 H 10/16/19 10:00 Blood Pressure 80/45 L 10/16/19 10:00 O2 Sat by Pulse Oximetry (%) 100 10/16/19 10:00 Cardiovascular: Yes: Pulse Irregular Respiratory: Yes: Diminished Gastrointestinal: Yes: Soft Edema: No Labs: CBC, BMP 10/16/19 07:55 10/16/19 07:55 INR, PTT INR 1.58 (0.83-1.09) H 10/16/19 07:55 Fibrinogen > 500.0 mg/dL (238-498) H 10/08/19 06:30 Problem List - Problems (1) Acute respiratory failure with hypoxia Code(s): J96.01 - ACUTE RESPIRATORY FAILURE WITH HYPOXIA (2) Atrial fibrillation Code(s): I48.91 - UNSPECIFIED ATRIAL FIBRILLATION (3) CAD (coronary artery disease) Code(s): I25.10 - ATHSCL HEART DISEASE OF [place] CORONARY ARTERY W/O ANG PCTRS Qualifiers: Coronary Disease-Associated Artery/Lesion type: [place] artery [place] vs. transplanted heart: [place] heart Associated angina: without angina Qualified Code(s): I25.10 - Atherosclerotic heart disease of [place] coronary artery without angina pectoris (4) History of depression Code(s): Z86.59 - PERSONAL HISTORY OF OTHER MENTAL AND BEHAVIORAL DISORDERS (5) S/P AVR (aortic valve replacement) Code(s): Z95.2 - PRESENCE OF PROSTHETIC HEART VALVE (6) Suspected 2019 novel coronavirus infection Code(s): Z20.828 - CONTACT W AND EXPOSURE TO [facility] VIRAL COMMUNICABLE DISEASES Assessment/Plan acute respiratory failure-- Intubated pneumonitis CHF decompensation Aflutter -- COVID negative -- on stress steroids --pressor support --s/p cardioversion -- --broad spectrum antibiotics weaning as tolerated Patient is DNR Continue present care Monitor Bgm Critical care time--approximately 35 minutes Will continue to follow
--- NOTE | 2019-10-16 12:38 | PN ---
<Rubin Valdes - Last Filed: 10/16/19 23:11> Physical Exam: SUBJECTIVE: Patient seen and examined. Intubated and sedated. OBJECTIVE: OBJECTIVE: GENERAL: The patient is sedated and intubated. HEAD: Normal with no signs of trauma. ENT: Ears normal, nares patent, pt intubated NECK: Trachea midline. LUNGS: Rhonchi on bilateral lung olvera HEART: Regular rate and rhythm ABDOMEN: Soft, nontender, nondistended, normoactive bowel sounds EXTREMITIES: 2+ pulses, bilateral lower ext edema SKIN: Warm, dry, normal turgor, no rashes or lesions noted Vital Signs Period Temp Pulse Resp BP Sys/Amador Pulse Ox Last 24 Hr 98.0 F-98.9 F 85-122 14-25 80-149/45-102 98-100 Laboratory Results - last 24 hr 10/15/19 10/15/19 10/16/19 16:30 18:00 02:45 WBC RBC Hgb Hct MCV MCH MCHC RDW Plt Count MPV Absolute Neuts (auto) Neutrophils % Neutrophils % (Manual) Band Neutrophils % Lymphocytes % Lymphocytes % (Manual) Monocytes % Monocytes % (Manual) Eosinophils % Eosinophils % (Manual) Basophils % Basophils % (Manual) Myelocytes % (Man) Promyelocytes % (Man) Blast Cells % (Manual) Nucleated RBC % Metamyelocytes Platelet Estimate PT with INR INR PTT (Actin FS) Anticoagulation Therapy Puncture Site Patient Temperature ABG pH ABG pCO2 ABG pO2 ABG HCO3 ABG O2 Sat (Measured) ABG O2 Content ABG Base Excess Polo Test Patient On Oxygen O2 Delivery Device Oxygen Flow Rate Vent Mode Vent Rate Mechanical Rate PEEP Pressure Support Vent Sodium Potassium Chloride Carbon Dioxide Anion Gap BUN Creatinine Est GFR (CKD-EPI)AfAm Est GFR (CKD-EPI)NonAf POC Glucometer 281 Random Glucose Hemoglobin A1c % Calcium Total Bilirubin AST ALT Alkaline Phosphatase Total Protein Albumin Vancomycin Pre-Dose 21.0 H 13.3 H 10/16/19 10/16/19 10/16/19 05:30 06:12 07:55 WBC 9.4 RBC 2.71 L Hgb 8.1 L Hct 24.9 L MCV 92.0 MCH 30.0 MCHC 32.6 RDW 16.6 H Plt Count 204 D MPV 9.7 Absolute Neuts (auto) 8.4 H Neutrophils % 89.6 H Neutrophils % (Manual) 91.5 H Band Neutrophils % 0.0 Lymphocytes % 5.9 L D Lymphocytes % (Manual) 1.0 L D Monocytes % 4.0 Monocytes % (Manual) 6 D Eosinophils % 0.0 D Eosinophils % (Manual) 0.0 Basophils % 0.5 D Basophils % (Manual) 0.0 Myelocytes % (Man) 0 Promyelocytes % (Man) 0 Blast Cells % (Manual) 0 Nucleated RBC % 1 H Metamyelocytes 1 D Platelet Estimate Normal PT with INR INR PTT (Actin FS) Anticoagulation Therapy No Result Required. Puncture Site Right radial Patient Temperature No Result Required. ABG pH 7.465 H ABG pCO2 34.80 L ABG pO2 107.6 H ABG HCO3 24.5 ABG O2 Sat (Measured) 98.2 H ABG O2 Content No Result Required. ABG Base Excess 1.0 Polo Test Positive Patient On Oxygen Yes O2 Delivery Device Vent Oxygen Flow Rate 50% Vent Mode A/c Vent Rate 14 Mechanical Rate Yes PEEP 5.0 Pressure Support Vent 450 Sodium Potassium Chloride Carbon Dioxide Anion Gap BUN Creatinine Est GFR (CKD-EPI)AfAm Est GFR (CKD-EPI)NonAf POC Glucometer 377 Random Glucose Hemoglobin A1c % Calcium Total Bilirubin AST ALT Alkaline Phosphatase Total Protein Albumin Vancomycin Pre-Dose 10/16/19 10/16/19 10/16/19 07:55 07:55 07:55 WBC RBC Hgb Hct MCV MCH MCHC RDW Plt Count MPV Absolute Neuts (auto) Neutrophils % Neutrophils % (Manual) Band Neutrophils % Lymphocytes % Lymphocytes % (Manual) Monocytes % Monocytes % (Manual) Eosinophils % Eosinophils % (Manual) Basophils % Basophils % (Manual) Myelocytes % (Man) Promyelocytes % (Man) Blast Cells % (Manual) Nucleated RBC % Metamyelocytes Platelet Estimate PT with INR 18.70 H INR 1.58 H PTT (Actin FS) 23.6 L Anticoagulation Therapy Puncture Site Patient Temperature ABG pH ABG pCO2 ABG pO2 ABG HCO3 ABG O2 Sat (Measured) ABG O2 Content ABG Base Excess Polo Test Patient On Oxygen O2 Delivery Device Oxygen Flow Rate Vent Mode Vent Rate Mechanical Rate PEEP Pressure Support Vent Sodium 138 Potassium 4.1 Chloride 104 Carbon Dioxide 30 Anion Gap 4 L BUN 35.2 H Creatinine 0.7 Est GFR (CKD-EPI)AfAm 105.50 Est GFR (CKD-EPI)NonAf 91.03 POC Glucometer Random Glucose 353 H Hemoglobin A1c % 7.2 H Calcium 7.0 L Total Bilirubin 0.8 AST 18 ALT 21 Alkaline Phosphatase 73 Total Protein 4.9 L Albumin 1.6 L Vancomycin Pre-Dose 10/16/19 10:51 WBC RBC Hgb Hct MCV MCH MCHC RDW Plt Count MPV Absolute Neuts (auto) Neutrophils % Neutrophils % (Manual) Band Neutrophils % Lymphocytes % Lymphocytes % (Manual) Monocytes % Monocytes % (Manual) Eosinophils % Eosinophils % (Manual) Basophils % Basophils % (Manual) Myelocytes % (Man) Promyelocytes % (Man) Blast Cells % (Manual) Nucleated RBC % Metamyelocytes Platelet Estimate PT with INR INR PTT (Actin FS) Anticoagulation Therapy Puncture Site Patient Temperature ABG pH ABG pCO2 ABG pO2 ABG HCO3 ABG O2 Sat (Measured) ABG O2 Content ABG Base Excess Polo Test Patient On Oxygen O2 Delivery Device Oxygen Flow Rate Vent Mode Vent Rate Mechanical Rate PEEP Pressure Support Vent Sodium Potassium Chloride Carbon Dioxide Anion Gap BUN Creatinine Est GFR (CKD-EPI)AfAm Est GFR (CKD-EPI)NonAf POC Glucometer 262 Random Glucose Hemoglobin A1c % Calcium Total Bilirubin AST ALT Alkaline Phosphatase Total Protein Albumin Vancomycin Pre-Dose Active Medications Generic Name Dose Route Start Last Admin Trade Name Freq PRN Reason Stop Dose Admin Acetaminophen 650 mg 10/06/19 00:25 10/13/19 17:17 Tylenol - PO 650 mg Q6H PRN Administration FEVER Albuterol Sulfate 2 puff 10/06/19 00:25 Ventolin Hfa Inhaler - IH Q4H PRN SHORT OF BREATH/WHEEZING Apixaban 5 mg 10/06/19 10:00 10/16/19 09:07 Eliquis - PO 5 mg BID MAGI Administration Atorvastatin Calcium 40 mg 10/06/19 22:00 10/15/19 21:06 Lipitor - PO 40 mg HS MAGI Administration Chlorhexidine Gluconate 1 applic 10/06/19 22:00 10/15/19 21:06 Hibiclens For Decolonization - TP 1 applic HS MAGI Administration Norepinephrine Bitartrate 16,000 mcg in 500 mls @ 9.375 mls/hr 10/06/19 07:45 10/15/19 11:00 Levophed Bag - Ns IVPB 0 mcg/min TITR MAGI 0 mls/hr Titration Protocol 5 MCG/MIN Vasopressin 40 units/ Sodium 100 mls @ 5 mls/hr 10/06/19 09:15 10/14/19 21:19 Chloride IVPB 0 units/hr ASDIR MAGI 0 mls/hr Titration Protocol 2 UNITS/HR Propofol 1,000,000 mcg in 100 mls @ 11.97 mls/hr 10/11/19 14:30 10/16/19 10:29 Diprivan - IVPB 0 mcg/kg/min TITR MAGI 0 mls/hr Titration Protocol 30 MCG/KG/MIN Piperacillin Sod/Tazobactam 50 mls @ 100 mls/hr 10/12/19 16:15 10/16/19 09:07 Sod 3.375 gm/ Dextrose IVPB 100 mls/hr Q8H-IV MAGI Administration Protocol Vancomycin HCl 1,000 mg in 250 mls @ 166.667 mls/hr 10/12/19 16:00 10/16/19 04:30 Vancomycin (Pre-Docked) IVPB 166.667 mls/hr Q12H MAGI Administration Protocol Fentanyl 500 mcg in 100 mls @ 1 mls/hr 10/13/19 02:30 10/16/19 10:29 Sublimaze Ivpb IVPB 0 mcg/hr TITR MAGI 0 mls/hr Titration Protocol 5 MCG/HR Insulin Aspart 1 vial 10/15/19 11:15 10/16/19 10:52 Novolog Vial Sliding Scale - SQ 6 units TIDAC [facility] Administration Protocol Insulin Detemir 10 units 10/16/19 22:00 Levemir Vial SQ HS [facility] Methylprednisolone Sodium Succinate 30 mg 10/13/19 22:00 10/16/19 09:07 Solu-Medrol - IVPUSH 30 mg BID MAGI Administration Metoprolol Tartrate 5 mg 10/12/19 21:13 10/16/19 09:08 Lopressor Injection - IVPUSH 5 mg Q4H PRN Administration TACHYCARDIA Mirtazapine 15 mg 10/06/19 22:00 10/15/19 21:06 Remeron - PO Not Given HS [facility] Pantoprazole Sodium 40 mg 10/06/19 11:15 10/16/19 09:07 Protonix Iv IVPUSH 40 mg DAILY MAGI Administration Sotalol HCl 80 mg 10/10/19 22:30 10/16/19 09:07 Betapace - PO 80 mg BID MAGI Administration ASSESSMENT/PLAN: 78 yo male DNR with Pmh afib (on eliquis), angina, chf, htn, gi bleed, recent admission for covid afib and acs in ICU for acute hypoxic resp failure to possible COVID pneumonitis vs ARDS. Neuro - sedated on fentanyl and propofol. Pt had sedation vacation and was responding to stimuli and command. - Held mirtazapine for depression CV - afib (periods rapid ventricular response s/p DCCV to initially MAT now ?sinus with APC) chf, htn, hld. Persistent aflutter with periods rvr s/p cardioversion - eliquis 5mg bid -sotalol 80 mg PO BID check QTc below 500 - Cont atorvastatin 40mg QD - If pt is tachycardic Lopressor 5mg prn dose is there. Pt for pressors giving levo and vasopressin. Do not give levo with lopressor. Pulm - Possible COvid pneumonitis. Acute hypoxic resp failure due to ARDS - Started pt on Medro 30 BID - Intubated on 10/04 due to resp failure - rate control - titrate FiO2, PEEP to keep SpO2 >90% - Pt vent settings were rate 14, volume 450, PEEP 5, FiO2 50% Pplat 20. If PPlat <20 will start weaning off sedation. - sedate for vent synchrony ID - Vanco (10/11 BID)/ zosyn (10/11 3.375 q 8) - ID consult appreciated - CXR was ordered- showing slight improvement in aeration since 10/10 - vancomycin given this morning but held at night. Will follow troughs Renal No acute issues -Monitor I/O's, Cr and electrolytes Heme - stool occult negative - Hgb back up to 8.4. Will continue to monitor GI - h/o GI bleed - no acute issues - c/w protonix Endo - Pt glucose remains to be elevated. Consult shafting worker. - Sliding scale started (10/14) - Scrap Stripper Hand was consulted who said glucerna and vital will do same thing to glucose but glucerna not advisable due to propofol sedation. LTD -Smiley 10/04 - intubation 10/04 - Pt [facility] 10/13 Prophylaxis - DVT- SCD/ eliquis - GI- protonix ATTENDING PHYSICIAN STATEMENT I saw and evaluated the patient. I reviewed the resident's note and discussed the case with the resident. I agree with the resident's findings and plan as documented. SUBJECTIVE: OBJECTIVE: ASSESSMENT AND PLAN: <aNtalie Tavera - Last Filed: 10/17/19 10:58> Physical Exam: SUBJECTIVE: Patient seen and examined OBJECTIVE: Vital Signs Period Temp Pulse Resp BP Sys/Amador Pulse Ox Last 24 Hr 98.1 F-99.9 F 74-122 14-30 81-160/45-102 95-100 GENERAL: The patient is awake, alert, and fully oriented, in no acute distress. HEAD: Normal with no signs of trauma. EYES: PERRL, extraocular movements intact, sclera anicteric, conjunctiva clear. No ptosis. ENT: Ears normal, nares patent, oropharynx clear without exudates, moist mucous membranes. NECK: Trachea midline, full range of motion, supple. LUNGS: Breath sounds equal, clear to auscultation bilaterally, no wheezes, no crackles, no accessory muscle use. HEART: Regular rate and rhythm, S1, S2 without murmur, rub or gallop. ABDOMEN: Soft, nontender, nondistended, normoactive bowel sounds, no guarding, no rebound, no hepatosplenomegaly, no masses. EXTREMITIES: 2+ pulses, warm, well-perfused, no edema. NEUROLOGICAL: Cranial nerves II through XII grossly intact. Normal speech, gait not observed. PSYCH: Normal mood, normal affect. SKIN: Warm, dry, normal turgor, no rashes or lesions noted Laboratory Results - last 24 hr 10/16/19 10/16/19 10/17/19 15:29 15:32 05:30 WBC RBC Hgb Hct MCV MCH MCHC RDW Plt Count MPV PT with INR INR PTT (Actin FS) Anticoagulation Therapy Puncture Site Patient Temperature ABG pH ABG pCO2 ABG pO2 ABG HCO3 ABG O2 Sat (Measured) ABG O2 Content ABG Base Excess Polo Test Patient On Oxygen O2 Delivery Device Oxygen Flow Rate Vent Mode Vent Rate Mechanical Rate PEEP Pressure Support Vent Sodium 135 L Potassium 4.2 Chloride 102 Carbon Dioxide 27 Anion Gap 7 L BUN 33.3 H Creatinine 0.6 Est GFR (CKD-EPI)AfAm 112.40 Est GFR (CKD-EPI)NonAf 96.98 POC Glucometer 180 Random Glucose 327 H Calcium 6.6 L* Phosphorus 2.3 L Magnesium 2.2 Total Bilirubin 0.9 AST 22 ALT 24 Alkaline Phosphatase 73 Total Protein 5.2 L Albumin 1.6 L Triglycerides 188 H Random Vancomycin 17.6 10/17/19 10/17/19 10/17/19 05:30 05:30 05:30 WBC 11.8 H RBC 2.79 L Hgb 8.2 L Hct 25.5 L MCV 91.3 MCH 29.6 MCHC 32.4 RDW 16.5 H Plt Count 255 D MPV 9.7 PT with INR 19.50 H INR 1.64 H PTT (Actin FS) 24.7 L Anticoagulation Therapy No Result Required. Puncture Site Right radial Patient Temperature No Result Required. ABG pH 7.485 H ABG pCO2 34.60 L ABG pO2 80.0 ABG HCO3 25.5 ABG O2 Sat (Measured) 96.6 ABG O2 Content No Result Required. ABG Base Excess 2.1 H Polo Test Positive Patient On Oxygen Yes O2 Delivery Device Vent Oxygen Flow Rate 40% Vent Mode A/c Vent Rate 14 Mechanical Rate No Result Required. PEEP 5.0 Pressure Support Vent 450 Sodium Potassium Chloride Carbon Dioxide Anion Gap BUN Creatinine Est GFR (CKD-EPI)AfAm Est GFR (CKD-EPI)NonAf POC Glucometer Random Glucose Calcium Phosphorus Magnesium Total Bilirubin AST ALT Alkaline Phosphatase Total Protein Albumin Triglycerides Random Vancomycin 10/17/19 06:17 WBC RBC Hgb Hct MCV MCH MCHC RDW Plt Count MPV PT with INR INR PTT (Actin FS) Anticoagulation Therapy Puncture Site Patient Temperature ABG pH ABG pCO2 ABG pO2 ABG HCO3 ABG O2 Sat (Measured) ABG O2 Content ABG Base Excess Polo Test Patient On Oxygen O2 Delivery Device Oxygen Flow Rate Vent Mode Vent Rate Mechanical Rate PEEP Pressure Support Vent Sodium Potassium Chloride Carbon Dioxide Anion Gap BUN Creatinine Est GFR (CKD-EPI)AfAm Est GFR (CKD-EPI)NonAf POC Glucometer 315 Random Glucose Calcium Phosphorus Magnesium Total Bilirubin AST ALT Alkaline Phosphatase Total Protein Albumin Triglycerides Random Vancomycin Active Medications Generic Name Dose Route Start Last Admin Trade Name Freq PRN Reason Stop Dose Admin Acetaminophen 650 mg 10/06/19 00:25 10/13/19 17:17 Tylenol - PO 650 mg Q6H PRN Administration FEVER Albuterol Sulfate 2 puff 10/06/19 00:25 Ventolin Hfa Inhaler - IH Q4H PRN SHORT OF BREATH/WHEEZING Apixaban 5 mg 08/19/20 10:00 10/17/19 09:21 Eliquis - PO 5 mg BID MAGI Administration Atorvastatin Calcium 40 mg 10/06/19 22:00 10/16/19 21:09 Lipitor - PO 40 mg HS MAGI Administration Chlorhexidine Gluconate 1 applic 10/06/19 22:00 10/16/19 21:09 Hibiclens For Decolonization - TP 1 applic HS MAGI Administration Norepinephrine Bitartrate 16,000 mcg in 500 mls @ 9.375 mls/hr 10/06/19 07:45 10/17/19 00:00 Levophed Bag - Ns IVPB 0 mcg/min TITR MAGI 0 mls/hr Titration Protocol 5 MCG/MIN Vasopressin 40 units/ Sodium 100 mls @ 5 mls/hr 10/06/19 09:15 10/14/19 21:19 Chloride IVPB 0 units/hr ASDIR MAGI 0 mls/hr Titration Protocol 2 UNITS/HR Propofol 1,000,000 mcg in 100 mls @ 11.97 mls/hr 10/11/19 14:30 10/16/19 18:33 Diprivan - IVPB 10 mcg/kg/min TITR MAGI 3.99 mls/hr Titration Protocol 30 MCG/KG/MIN Piperacillin Sod/Tazobactam 50 mls @ 100 mls/hr 10/12/19 16:15 10/17/19 09:19 Sod 3.375 gm/ Dextrose IVPB 100 mls/hr Q8H-IV MAGI Administration Protocol Fentanyl 500 mcg in 100 mls @ 1 mls/hr 10/13/19 02:30 10/17/19 09:18 Sublimaze Ivpb IVPB 100 mcg/hr TITR MAGI 20 mls/hr Administration Protocol 5 MCG/HR Insulin Aspart 1 vial 10/15/19 11:15 10/17/19 06:22 Novolog Vial Sliding Scale - SQ 8 units TIDAC [facility] Administration Protocol Insulin Detemir 15 units 10/17/19 10:24 Levemir Vial SQ HS [facility] Methylprednisolone Sodium Succinate 30 mg 10/13/19 22:00 10/17/19 09:13 Solu-Medrol - IVPUSH 30 mg BID MAGI Administration Metoprolol Tartrate 5 mg 10/12/19 21:13 10/17/19 09:25 Lopressor Injection - IVPUSH 5 mg Q4H PRN Administration TACHYCARDIA Mirtazapine 15 mg 10/06/19 22:00 10/16/19 21:09 Remeron - PO 15 mg HS MAGI Administration Pantoprazole Sodium 40 mg 10/06/19 11:15 10/17/19 09:17 Protonix Iv IVPUSH 40 mg DAILY MAGI Administration Sotalol HCl 80 mg 10/10/19 22:30 10/17/19 09:12 Betapace - PO 80 mg BID MAGI Administration ASSESSMENT/PLAN: ATTENDING PHYSICIAN STATEMENT I saw and evaluated the patient. I reviewed the resident's note and discussed the case with the resident. I agree with the resident's findings and plan as documented. SUBJECTIVE: OBJECTIVE: ASSESSMENT AND PLAN:
[2019-10-16] MEDS: PROPOFOL 1,000,000 MCG/100 ML VIAL IVPB SCH (15:37)
[2019-10-16] MEDS: MIRTAZAPINE 15 MG TABLET (FP) PO SCH (21:09)
[2019-10-16] MEDS: CHLORHEXIDINE GLUCONATE 4% CLEANSER FOR DECOLONIZATION TP SCH (21:09)
[2019-10-16] MEDS: ATORVASTATIN CA 40 MG TABLET (FP) PO SCH (21:09)
[2019-10-16] MEDS ORDERED: INSULIN (LEVEMIR) 100 UNITS/ML UNITS SQ SCH (22:00)
[2019-10-16] MEDS ORDERED: SODIUM CHLORIDE 0.9% 500 ML INFUS.BAG IV ONE (22:57)
--- NOTE | 2019-10-16 23:00 | PN ---
Progress Note, Physician Chief Complaint: INTUBATED SEDATED ON VENTILATOR HYPOTENSIVE ON PRESSORS AFEBRILE WBC WNL CXR B/L INFILTRATES SPUTUM KLEBSIELLA - Current Medication List Current Medications: Active Medications Acetaminophen (Tylenol -) 650 mg PO Q6H PRN PRN Reason: FEVER Last Admin: 10/13/19 17:17 Dose: 650 mg Documented by: Albuterol Sulfate (Ventolin Hfa Inhaler -) 2 puff IH Q4H PRN PRN Reason: SHORT OF BREATH/WHEEZING Apixaban (Eliquis -) 5 mg PO BID MAGI Last Admin: 10/16/19 21:09 Dose: 5 mg Documented by: Atorvastatin Calcium (Lipitor -) 40 mg PO HS MAGI Last Admin: 10/16/19 21:09 Dose: 40 mg Documented by: Chlorhexidine Gluconate (Hibiclens For Decolonization -) 1 applic TP HS MAGI Last Admin: 10/16/19 21:09 Dose: 1 applic Documented by: Norepinephrine Bitartrate (Levophed Bag - Ns) 16,000 mcg in 500 mls @ 9.375 mls/hr IVPB TITR MAGI; Protocol Last Titration: 10/16/19 22:20 Dose: 5 mcg/min, 9.375 mls/hr Documented by: Vasopressin 40 units/ Sodium (Chloride) 100 mls @ 5 mls/hr IVPB ASDIR MAGI; Protocol Last Titration: 10/14/19 21:19 Dose: 0 units/hr, 0 mls/hr Documented by: Propofol (Diprivan -) 1,000,000 mcg in 100 mls @ 11.97 mls/hr IVPB TITR MAGI; Protocol Last Titration: 10/16/19 18:33 Dose: 10 mcg/kg/min, 3.99 mls/hr Documented by: Piperacillin Sod/Tazobactam (Sod 3.375 gm/ Dextrose) 50 mls @ 100 mls/hr IVPB Q8H-IV MAGI; Protocol Last Admin: 10/16/19 17:33 Dose: 100 mls/hr Documented by: Vancomycin HCl (Vancomycin (Pre-Docked)) 1,000 mg in 250 mls @ 166.667 mls/hr IVPB Q12H MAGI; Protocol Last Admin: 10/16/19 17:37 Dose: Not Given Documented by: Fentanyl (Sublimaze Ivpb) 500 mcg in 100 mls @ 1 mls/hr IVPB TITR [facility]; Protocol Last Titration: 10/16/19 16:55 Dose: 100 mcg/hr, 20 mls/hr Documented by: Insulin Aspart (Novolog Vial Sliding Scale -) 1 vial SQ TIDAC [facility]; Protocol Last Admin: 10/16/19 15:32 Dose: 2 units Documented by: Insulin Detemir (Levemir Vial) 10 units SQ [facility] Last Admin: 10/16/19 21:12 Dose: 10 units Documented by: Methylprednisolone Sodium Succinate (Solu-Medrol -) 30 mg IVPUSH BID [facility] Last Admin: 10/16/19 21:08 Dose: 30 mg Documented by: Metoprolol Tartrate (Lopressor Injection -) 5 mg IVPUSH Q4H PRN PRN Reason: TACHYCARDIA Last Admin: 10/16/19 09:08 Dose: 5 mg Documented by: Mirtazapine (Remeron -) 15 mg PO [facility] Last Admin: 10/16/19 21:09 Dose: 15 mg Documented by: Pantoprazole Sodium (Protonix Iv) 40 mg IVPUSH DAILY [facility] Last Admin: 10/16/19 09:07 Dose: 40 mg Documented by: Sodium Chloride (Normal Saline -) 500 ml IV ONCE ONE Stop: 10/16/19 22:58 Sotalol HCl (Betapace -) 80 mg PO BID [facility] Last Admin: 10/16/19 21:09 Dose: 80 mg Documented by: - Objective Vital Signs: Vital Signs Temperature 98.1 F 10/16/19 22:00 Pulse Rate 74 10/16/19 22:00 Respiratory Rate 14 10/16/19 22:00 Blood Pressure 81/45 L 10/16/19 22:00 O2 Sat by Pulse Oximetry (%) 99 10/16/19 22:00 Constitutional: Yes: No Distress Cardiovascular: Yes: Regular Rate and Rhythm, S1, S2 Respiratory: Yes: Mechanically Ventilated Edema: No Labs: CBC, BMP 10/16/19 07:55 10/16/19 07:55 INR, PTT INR 1.58 (0.83-1.09) H 10/16/19 07:55 Fibrinogen > 500.0 mg/dL (238-498) H 10/08/19 06:30 Assessment/Plan BILATERAL INFILTRATES ? PNEUMONITIS ? CHF RESP FAILURE S/P TAVR COVID -19 (-) X5 CONTINUE EMPIRIC ZOSYN HOLD VANCO VENTILATORY SUPPORT
[2019-10-16] MEDS ORDERED: SODIUM CHLORIDE 0.9% 1000 ML INFUS.BAG IV ONE (23:08)
[2019-10-17] MEDS ORDERED: PIPERACILLIN/TAZOBACTAM 3.375 GM VIAL IVPB ONE ×3 (00:42→16:29)
[2019-10-17] MEDS ORDERED: DEXTROSE 5%-WATER - 50 ML IVPB ONE ×3 (00:43→16:29)
[2019-10-17] MEDS: PIPERACILLIN/TAZOB 3.375 GM 3.375 GM in DEXTROSE 5%-WATER - 50 ML IVPB SCH ×3 (01:03→17:18)
[2019-10-17] MEDS: FENTANYL IVPB 500 MCG/100 ML BAG IVPB SCH ×2 (02:30→09:18)
[2019-10-17] MEDS: VANCOMYCIN 1 GRAM (PRE-DOCKED) 1,000 MG/250 ML BAG IVPB SCH (04:19)
[2019-10-17 05:49] LABS: ARTERIAL BLD GAS O2 SATURATION 96.6 mmHg (95-98); ARTERIAL BLOOD GAS BASE EXCESS 2.1 mmol/L (-2-2); ARTERIAL BLOOD GAS pH 7.485 (7.350-7.450)
[2019-10-17 05:51] LABS: ALLENS TEST POSITIVE
[2019-10-17 05:52] LABS: VENT MODE A/C
[2019-10-17 05:53] LABS: VENT RATE 14
[2019-10-17] MEDS: INSULIN SLIDING SCALE (NOVOLOG) 1 VIAL SQ SCH ×3 (06:22→16:35)
--- NOTE | 2019-10-17 06:42 | PN ---
Progress Note (short form) - Note Progress Note: Chief Complaint: Events noted, notes reviewed, remains intubated and sedated, maury arrhythmia reported last night, transient hypotension reported requiring pressor therapy reinitiation and subsequent discontinuation, rhythm is sinus with frequent premature supraventricular contractions History of Present Illness: Seen and examined in the ICU. Events noted, notes reviewed, remains intubated and sedated, maury arrhythmia reported last night, transient hypotension reported requiring pressor therapy reinitiation and subsequent discontinuation, rhythm is sinus with frequent premature supraventricular contractions Medications: Current Medications Generic Name Dose Route Start Last Admin Trade Name Freq PRN Reason Stop Dose Admin Acetaminophen 650 mg 10/06/19 00:25 10/13/19 17:17 Tylenol - PO 650 mg Q6H PRN Administration FEVER Albuterol Sulfate 2 puff 10/06/19 00:25 Ventolin Hfa Inhaler - IH Q4H PRN SHORT OF BREATH/WHEEZING Apixaban 5 mg 10/06/19 10:00 10/16/19 21:09 Eliquis - PO 5 mg BID [facility] Administration Atorvastatin Calcium 40 mg 10/06/19 22:00 10/16/19 21:09 Lipitor - PO 40 mg HS [facility] Administration Chlorhexidine Gluconate 1 applic 10/06/19 22:00 10/16/19 21:09 Hibiclens For Decolonization - TP 1 applic HS [facility] Administration Norepinephrine Bitartrate 16,000 mcg in 500 mls @ 9.375 mls/hr 10/06/19 07:45 10/17/19 00:00 Levophed Bag - Ns IVPB 0 mcg/min TITR [facility] 0 mls/hr Titration Protocol 5 MCG/MIN Vasopressin 40 units/ Sodium 100 mls @ 5 mls/hr 10/06/19 09:15 10/14/19 21:19 Chloride IVPB 0 units/hr ASDIR [facility] 0 mls/hr Titration Protocol 2 UNITS/HR Propofol 1,000,000 mcg in 100 mls @ 11.97 mls/hr 10/11/19 14:30 10/16/19 18:33 Diprivan - IVPB 10 mcg/kg/min TITR [facility] 3.99 mls/hr Titration Protocol 30 MCG/KG/MIN Piperacillin Sod/Tazobactam 50 mls @ 100 mls/hr 10/12/19 16:15 10/17/19 01:03 Sod 3.375 gm/ Dextrose IVPB 100 mls/hr Q8H-IV [facility] Administration Protocol Fentanyl 500 mcg in 100 mls @ 1 mls/hr 10/13/19 02:30 10/17/19 02:30 Sublimaze Ivpb IVPB Not Given TITR [facility] Protocol 5 MCG/HR Insulin Aspart 1 vial 10/15/19 11:15 10/17/19 06:22 Novolog Vial Sliding Scale - SQ 8 units TIDAC [facility] Administration Protocol Insulin Detemir 10 units 10/16/19 22:00 10/16/19 21:12 Levemir Vial SQ 10 units HS [facility] Administration Methylprednisolone Sodium Succinate 30 mg 10/13/19 22:00 10/16/19 21:08 Solu-Medrol - IVPUSH 30 mg BID [facility] Administration Metoprolol Tartrate 5 mg 10/12/19 21:13 10/16/19 09:08 Lopressor Injection - IVPUSH 5 mg Q4H PRN Administration TACHYCARDIA Mirtazapine 15 mg 10/06/19 22:00 10/16/19 21:09 Remeron - PO 15 mg HS [facility] Administration Pantoprazole Sodium 40 mg 10/06/19 11:15 10/16/19 09:07 Protonix Iv IVPUSH 40 mg DAILY [facility] Administration Sotalol HCl 80 mg 10/10/19 22:30 10/16/19 21:09 Betapace - PO 80 mg BID [facility] Administration Review of Systems Unable to obtain/sedated and intubated Vital Signs: Last Vital Signs Temp Pulse Resp BP Pulse Ox 98.3 F 100 H 15 122/59 L 96 10/17/19 02:00 10/17/19 04:00 10/17/19 04:10 10/17/19 04:00 10/17/19 04:00 Intake & Output 10/14/19 10/15/19 10/16/19 10/17/19 23:59 23:59 23:59 23:59 Intake Total 1727 1996 2161.3 Output Total 1040 2800 1600 Balance 687 -804 561.3 Weight 155 lb 10.342 oz 154 lb 12.232 oz 154 lb 8.705 oz Neck: Supple Negative JVD Respiratory: Diminished Breath Sounds at the Bases Cardiovascular: S1 S2 Regular with frequent ectopics grade 2/6 systolic ejection murmur Gastrointestinal: Soft Benign Normal Bowel Sounds Ext: Generalized Edema Labs: CBC, BMP 10/17/19 05:30 10/17/19 05:30 CBC, BMP 10/16/19 07:55 10/16/19 07:55 Hepatic Panel Total Bilirubin 0.8 mg/dL (0.2-1) 10/16/19 07:55 AST 18 U/L (15-37) 10/16/19 07:55 ALT 21 U/L (13-61) 10/16/19 07:55 Alkaline Phosphatase 73 U/L (45-117) 10/16/19 07:55 Albumin 1.6 g/dl (3.4-5.0) L 10/16/19 07:55 INR, PTT INR 1.58 (0.83-1.09) H 10/16/19 07:55 Fibrinogen > 500.0 mg/dL (238-498) H 10/08/19 06:30 ABG Results ABG pH 7.485 (7.350-7.450) H 10/17/19 05:30 ABG HCO3 25.5 mmol/L (22-27) 10/17/19 05:30 ABG O2 Sat (Measured) 96.6 mmHg (95-98) 10/17/19 05:30 ABG O2 Content No Result Required. 10/17/19 05:30 ABG Base Excess 2.1 mmol/L (-2-2) H 10/17/19 05:30 Assessment/Plan ASSESSMENT: 1. Clinical presentation is consistent with acute hypoxic respiratory failure related to bronchopneumonia with sepsis syndrome, coronavirus/COVID 19- persistent residual infiltrates 2. Diastolic left ventricular dysfunction with chronic class I-II NYHA classification left ventricular failure 3. Paroxysmal atrial flutter [id number] score of 5 post cardioversion on DOAC's/Eliquis 4. CAD post CABG with evidence of demand ischemia related to the above-noted clinical presentation angina pectoris 5. Aortic valve stenosis post SAVR/bio-prosthesis- with LA appendage ligation 6. Hypertensive cardiovascular disease, intermittent hypotension related to the above-noted sepsis syndrome 7. Hyperglycemia- diabetes mellitus 8. Hypercholesterolemia 9. History of altered mental status etiology of which was unclear- prior history of clinical depression 10. Prerenal azotemia 11. Anemia PLAN: 1. Continue Sotalol with caution and close monitoring of QTc interval 2. May utilize intravenous Cardizem therapy with caution as needed hemodynamics permitting 3. Continue Atorvastatin therapy 4. Continue DOAC's/Eliquis therapy with caution and close monitoring of hemoglobin level, maintaining hemoglobin level equal or greater than 8.0 5. Withhold Lasix therapy in view of the above-noted prerenal azotemia 6. Antibiotics as per the primary team Overall poor prognosis Kate Ang MD
[2019-10-17 07:54] LABS: INR 1.64 (0.83-1.09); PROTHROMBIN TIME (PATIENT) 19.5 SEC (9.7-13.0)
[2019-10-17 07:56] LABS: ACTIVATED PTT 24.7 SECONDS (25.2-36.5)
[2019-10-17 07:57] LABS: HEMATOCRIT 25.5 % (35.4-49); HEMOGLOBIN 8.2 GM/dL (11.7-16.9); MCH 29.6 pg (25.7-33.7); MCHC 32.4 g/dl (32.0-35.9); MEAN CELL VOLUME 91.3 fl (80-96); MEAN PLT VOLUME 9.7 fl (7.5-11.1); PLATELET COUNT 255 K/MM3 (134-434); RBC 2.79 M/mm3 (4.00-5.60); RDW 16.5 % (11.9-15.9); WHITE BLOOD COUNT 11.8 K/mm3 (4.0-10.0)
[2019-10-17 08:29] LABS: ALBUMIN 1.6 g/dl (3.4-5.0); BILIRUBIN,TOTAL 0.9 mg/dL (0.2-1); BLOOD UREA NITROGEN 33.3 mg/dL (7-18); CREATININE 0.6 mg/dL (0.55-1.3); MAGNESIUM 2.2 mg/dL (1.8-2.4); PHOSPHOROUS 2.3 mg/dL (2.5-4.9); POTASSIUM 4.2 mmol/L (3.5-5.1); TOT PROT 5.2 g/dl (6.4-8.2)
[2019-10-17] MEDS ORDERED: PT OWN MED DRAWER 7, Y5N ONE ×2 (09:02→21:52)
[2019-10-17 09:10] LABS: CALCIUM 6.6 mg/dL (8.5-10.1)
[2019-10-17] MEDS: SOTALOL HCL 80 MG TABLET (FP) PO SCH ×2 (09:12→22:39)
[2019-10-17] MEDS: methylPREDNISolone NA SUCC 40 MG/1 ML VIAL IVPUSH SCH ×2 (09:13→22:39)
[2019-10-17] MEDS: PANTOPRAZOLE SODIUM 40 MG VIAL IVPUSH SCH (09:17)
[2019-10-17] MEDS: APIXABAN 5 MG TABLET PO SCH ×2 (09:21→22:40)
[2019-10-17] MEDS: METOPROLOL TARTRATE 5 MG/5 ML VIAL IVPUSH PRN (09:25)
--- NOTE | 2019-10-17 10:00 | PN ---
Progress Note, Physician Chief Complaint: INTUBATED, AWAKE SEDATED ON VENTILATOR OFF PRESSORS LOW GRADE TEMP WBC WNL CXR B/L INFILTRATES SPUTUM KLEBSIELLA - Current Medication List Current Medications: Active Medications Acetaminophen (Tylenol -) 650 mg PO Q6H PRN PRN Reason: FEVER Last Admin: 10/13/19 17:17 Dose: 650 mg Documented by: Albuterol Sulfate (Ventolin Hfa Inhaler -) 2 puff IH Q4H PRN PRN Reason: SHORT OF BREATH/WHEEZING Apixaban (Eliquis -) 5 mg PO BID [facility] Last Admin: 10/17/19 09:21 Dose: 5 mg Documented by: Atorvastatin Calcium (Lipitor -) 40 mg PO HS [facility] Last Admin: 10/16/19 21:09 Dose: 40 mg Documented by: Chlorhexidine Gluconate (Hibiclens For Decolonization -) 1 applic TP [facility] Last Admin: 10/16/19 21:09 Dose: 1 applic Documented by: Norepinephrine Bitartrate (Levophed Bag - Ns) 16,000 mcg in 500 mls @ 9.375 mls/hr IVPB TITR [facility]; Protocol Last Titration: 10/17/19 00:00 Dose: 0 mcg/min, 0 mls/hr Documented by: Vasopressin 40 units/ Sodium (Chloride) 100 mls @ 5 mls/hr IVPB ASDIR [facility]; Protocol Last Titration: 10/14/19 21:19 Dose: 0 units/hr, 0 mls/hr Documented by: Propofol (Diprivan -) 1,000,000 mcg in 100 mls @ 11.97 mls/hr IVPB TITR [facility]; Protocol Last Titration: 10/16/19 18:33 Dose: 10 mcg/kg/min, 3.99 mls/hr Documented by: Piperacillin Sod/Tazobactam (Sod 3.375 gm/ Dextrose) 50 mls @ 100 mls/hr IVPB Q8H-IV [facility]; Protocol Last Admin: 10/17/19 09:19 Dose: 100 mls/hr Documented by: Fentanyl (Sublimaze Ivpb) 500 mcg in 100 mls @ 1 mls/hr IVPB TITR [facility]; Protocol Last Admin: 10/17/19 09:18 Dose: 100 mcg/hr, 20 mls/hr Documented by: Insulin Aspart (Novolog Vial Sliding Scale -) 1 vial SQ TIDAC [facility]; Protocol Last Admin: 10/17/19 06:22 Dose: 8 units Documented by: Insulin Detemir (Levemir Vial) 10 units SQ [facility] Last Admin: 10/16/19 21:12 Dose: 10 units Documented by: Methylprednisolone Sodium Succinate (Solu-Medrol -) 30 mg IVPUSH BID [facility] Last Admin: 10/17/19 09:13 Dose: 30 mg Documented by: Metoprolol Tartrate (Lopressor Injection -) 5 mg IVPUSH Q4H PRN PRN Reason: TACHYCARDIA Last Admin: 10/17/19 09:25 Dose: 5 mg Documented by: Mirtazapine (Remeron -) 15 mg PO [facility] Last Admin: 10/16/19 21:09 Dose: 15 mg Documented by: Pantoprazole Sodium (Protonix Iv) 40 mg IVPUSH DAILY [facility] Last Admin: 10/17/19 09:17 Dose: 40 mg Documented by: Sotalol HCl (Betapace -) 80 mg PO BID [facility] Last Admin: 10/17/19 09:12 Dose: 80 mg Documented by: - Objective Vital Signs: Vital Signs Temperature 99.9 F H 10/17/19 08:11 Pulse Rate 122 H 10/17/19 09:25 Respiratory Rate 14 10/17/19 08:25 Blood Pressure 129/65 10/17/19 09:25 O2 Sat by Pulse Oximetry (%) 98 10/17/19 08:25 Constitutional: Yes: No Distress Eyes: Yes: Conjunctiva Clear Cardiovascular: Yes: Regular Rate and Rhythm, S1, S2 Respiratory: Yes: Mechanically Ventilated Gastrointestinal: Yes: Normal Bowel Sounds, Soft. No: Tenderness Labs: CBC, BMP 10/17/19 05:30 10/17/19 05:30 INR, PTT INR 1.64 (0.83-1.09) H 10/17/19 05:30 Fibrinogen > 500.0 mg/dL (238-498) H 10/08/19 06:30 Assessment/Plan BILATERAL INFILTRATES ? PNEUMONITIS ? CHF RESP FAILURE S/P TAVR COVID -19 (-) X5 CONTINUE EMPIRIC ZOSYN VENTILATORY SUPPORT
--- NOTE | 2019-10-17 10:19 | PN ---
Teaching Attending Note Name of Resident: Natalie Tavera ATTENDING PHYSICIAN STATEMENT I saw and evaluated the patient. I reviewed the resident's note and discussed the case with the resident. I agree with the resident's findings and plan as documented. SUBJECTIVE: Pt seen and examined in the ICU. Remains intubated, sedated. Off pressors. Vented on volume assist control with 50% FiO2, PEEP decreased to 5. Pplat 22. OBJECTIVE: Vital Signs Period Temp Pulse Resp BP Sys/Amador Pulse Ox Last 24 Hr 98.1 F-99.9 F 74-122 14-30 81-160/45-102 95-100 Intake & Output 10/14/19 10/15/19 10/16/19 10/17/19 23:59 23:59 23:59 23:59 Intake Total 1727 1996 2161.3 1526 Output Total 1040 2800 1600 250 Balance 687 -804 561.3 1276 Weight 70.6 kg 70.2 kg 70.1 kg 72 kg Gen: intubated, sedated Heart: RRR Lung: scattered rhonchi Abd: soft, nontender Ext: + edema CBC, BMP 10/17/19 05:30 10/17/19 05:30 Active Medications Acetaminophen (Tylenol -) 650 mg PO Q6H PRN PRN Reason: FEVER Last Admin: 10/13/19 17:17 Dose: 650 mg Documented by: Albuterol Sulfate (Ventolin Hfa Inhaler -) 2 puff IH Q4H PRN PRN Reason: SHORT OF BREATH/WHEEZING Apixaban (Eliquis -) 5 mg PO BID [facility] Last Admin: 10/17/19 09:21 Dose: 5 mg Documented by: Atorvastatin Calcium (Lipitor -) 40 mg PO [facility] Last Admin: 10/16/19 21:09 Dose: 40 mg Documented by: Chlorhexidine Gluconate (Hibiclens For Decolonization -) 1 applic TP [facility] Last Admin: 10/16/19 21:09 Dose: 1 applic Documented by: Norepinephrine Bitartrate (Levophed Bag - Ns) 16,000 mcg in 500 mls @ 9.375 mls/hr IVPB TITR [facility]; Protocol Last Titration: 10/17/19 00:00 Dose: 0 mcg/min, 0 mls/hr Documented by: Vasopressin 40 units/ Sodium (Chloride) 100 mls @ 5 mls/hr IVPB ASDIR [facility]; Protocol Last Titration: 10/14/19 21:19 Dose: 0 units/hr, 0 mls/hr Documented by: Propofol (Diprivan -) 1,000,000 mcg in 100 mls @ 11.97 mls/hr IVPB TITR [facility]; Protocol Last Titration: 10/16/19 18:33 Dose: 10 mcg/kg/min, 3.99 mls/hr Documented by: Piperacillin Sod/Tazobactam (Sod 3.375 gm/ Dextrose) 50 mls @ 100 mls/hr IVPB Q8H-IV [facility]; Protocol Last Admin: 10/17/19 09:19 Dose: 100 mls/hr Documented by: Fentanyl (Sublimaze Ivpb) 500 mcg in 100 mls @ 1 mls/hr IVPB TITR [facility]; Protocol Last Admin: 10/17/19 09:18 Dose: 100 mcg/hr, 20 mls/hr Documented by: Insulin Aspart (Novolog Vial Sliding Scale -) 1 vial SQ TIDAC [facility]; Protocol Last Admin: 10/17/19 06:22 Dose: 8 units Documented by: Insulin Detemir (Levemir Vial) 10 units SQ [facility] Last Admin: 10/16/19 21:12 Dose: 10 units Documented by: Methylprednisolone Sodium Succinate (Solu-Medrol -) 30 mg IVPUSH BID [facility] Last Admin: 10/17/19 09:13 Dose: 30 mg Documented by: Metoprolol Tartrate (Lopressor Injection -) 5 mg IVPUSH Q4H PRN PRN Reason: TACHYCARDIA Last Admin: 10/17/19 09:25 Dose: 5 mg Documented by: Mirtazapine (Remeron -) 15 mg PO HS [facility] Last Admin: 10/16/19 21:09 Dose: 15 mg Documented by: Pantoprazole Sodium (Protonix Iv) 40 mg IVPUSH DAILY [facility] Last Admin: 10/17/19 09:17 Dose: 40 mg Documented by: Sotalol HCl (Betapace -) 80 mg PO BID [facility] Last Admin: 10/17/19 09:12 Dose: 80 mg Documented by: ASSESSMENT AND PLAN: Acute Hypoxic Respiratory Failure Suspected COVID19 Pneumonia ARDS Sepsis Paroxysmal Atrial Fibrillation CAD s/p CABG Aortic Stenosis s/p AVR HTN Hypercholesterolemia Anemia - continue antibiotics - off pressors, maintain MAP >65 - continue steroids - continue anticoagulation - rate control - titrate FiO2, PEEP to keep SpO2 >90% - monitor Pplat - lighten sedation to assess mental status - spontaneous breathing trials as tolerated when mental status improved - enteral feeds - DVT/GI prophylaxis - continue ICU monitoring critical care time spent in reviewing chart, evaluating patient and formulating plan 35 min
--- NOTE | 2019-10-17 10:24 | PN ---
Progress Note, Physician History of Present Illness: pt seen/ examined in icu chart reviewed intubated/sedated All f/u noted d/w icu team/ RN bgm noted-- high On steroids will increase basal insulin an monitor - Current Medication List Current Medications: Active Medications Acetaminophen (Tylenol -) 650 mg PO Q6H PRN PRN Reason: FEVER Last Admin: 10/13/19 17:17 Dose: 650 mg Documented by: Albuterol Sulfate (Ventolin Hfa Inhaler -) 2 puff IH Q4H PRN PRN Reason: SHORT OF BREATH/WHEEZING Apixaban (Eliquis -) 5 mg PO BID [facility] Last Admin: 10/17/19 09:21 Dose: 5 mg Documented by: Atorvastatin Calcium (Lipitor -) 40 mg PO HS [facility] Last Admin: 10/16/19 21:09 Dose: 40 mg Documented by: Chlorhexidine Gluconate (Hibiclens For Decolonization -) 1 applic TP HS [facility] Last Admin: 10/16/19 21:09 Dose: 1 applic Documented by: Norepinephrine Bitartrate (Levophed Bag - Ns) 16,000 mcg in 500 mls @ 9.375 mls/hr IVPB TITR [facility]; Protocol Last Titration: 10/17/19 00:00 Dose: 0 mcg/min, 0 mls/hr Documented by: Vasopressin 40 units/ Sodium (Chloride) 100 mls @ 5 mls/hr IVPB ASDIR [facility]; Protocol Last Titration: 10/14/19 21:19 Dose: 0 units/hr, 0 mls/hr Documented by: Propofol (Diprivan -) 1,000,000 mcg in 100 mls @ 11.97 mls/hr IVPB TITR [facility]; Protocol Last Titration: 10/16/19 18:33 Dose: 10 mcg/kg/min, 3.99 mls/hr Documented by: Piperacillin Sod/Tazobactam (Sod 3.375 gm/ Dextrose) 50 mls @ 100 mls/hr IVPB Q8H-IV [facility]; Protocol Last Admin: 10/17/19 09:19 Dose: 100 mls/hr Documented by: Fentanyl (Sublimaze Ivpb) 500 mcg in 100 mls @ 1 mls/hr IVPB TITR [facility]; Protocol Last Admin: 10/17/19 09:18 Dose: 100 mcg/hr, 20 mls/hr Documented by: Insulin Aspart (Novolog Vial Sliding Scale -) 1 vial SQ TIDAC [facility]; Protocol Last Admin: 10/17/19 06:22 Dose: 8 units Documented by: Insulin Detemir (Levemir Vial) 10 units SQ [facility] Last Admin: 10/16/19 21:12 Dose: 10 units Documented by: Methylprednisolone Sodium Succinate (Solu-Medrol -) 30 mg IVPUSH BID [facility] Last Admin: 10/17/19 09:13 Dose: 30 mg Documented by: Metoprolol Tartrate (Lopressor Injection -) 5 mg IVPUSH Q4H PRN PRN Reason: TACHYCARDIA Last Admin: 10/17/19 09:25 Dose: 5 mg Documented by: Mirtazapine (Remeron -) 15 mg PO [facility] Last Admin: 10/16/19 21:09 Dose: 15 mg Documented by: Pantoprazole Sodium (Protonix Iv) 40 mg IVPUSH DAILY [facility] Last Admin: 10/17/19 09:17 Dose: 40 mg Documented by: Sotalol HCl (Betapace -) 80 mg PO BID [facility] Last Admin: 10/17/19 09:12 Dose: 80 mg Documented by: - Objective Vital Signs: Vital Signs Temperature 99.9 F H 10/17/19 08:11 Pulse Rate 122 H 10/17/19 09:25 Respiratory Rate 14 10/17/19 08:25 Blood Pressure 129/65 10/17/19 09:25 O2 Sat by Pulse Oximetry (%) 98 10/17/19 08:25 Cardiovascular: Yes: Pulse Irregular Respiratory: Yes: Diminished Gastrointestinal: Yes: Soft Edema: No Labs: CBC, BMP 10/17/19 05:30 10/17/19 05:30 INR, PTT INR 1.64 (0.83-1.09) H 10/17/19 05:30 Fibrinogen > 500.0 mg/dL (238-498) H 10/08/19 06:30 Problem List - Problems (1) Acute respiratory failure with hypoxia Code(s): J96.01 - ACUTE RESPIRATORY FAILURE WITH HYPOXIA (2) Atrial fibrillation Code(s): I48.91 - UNSPECIFIED ATRIAL FIBRILLATION (3) CAD (coronary artery disease) Code(s): I25.10 - ATHSCL HEART DISEASE OF [place] CORONARY ARTERY W/O ANG PCTRS Qualifiers: Coronary Disease-Associated Artery/Lesion type: [place] artery [place] vs. transplanted heart: [place] heart Associated angina: without angina Qualified Code(s): I25.10 - Atherosclerotic heart disease of [place] coronary artery without angina pectoris (4) History of depression Code(s): Z86.59 - PERSONAL HISTORY OF OTHER MENTAL AND BEHAVIORAL DISORDERS (5) S/P AVR (aortic valve replacement) Code(s): Z95.2 - PRESENCE OF PROSTHETIC HEART VALVE (6) Suspected 2019 novel coronavirus infection Code(s): Z20.828 - CONTACT W AND EXPOSURE TO [facility] VIRAL COMMUNICABLE DISEASES Assessment/Plan acute respiratory failure-- Intubated pneumonitis CHF decompensation Aflutter -- COVID negative -- on stress steroids --pressor support --s/p cardioversion -- --broad spectrum antibiotics weaning as tolerated Patient is DNR Continue present care Monitor Bgm Critical care time--approximately 35 minutes Will continue to follow.
--- NOTE | 2019-10-17 10:54 | PN ---
Physical Exam: SUBJECTIVE: Patient seen and examined at bedside. No acute events overnight. Pt seen intubated and sedated. Per nurse, abd more distended this AM. Still having episodes of diarrhea. OBJECTIVE: Vital Signs Period Temp Pulse Resp BP Sys/Amador Pulse Ox Last 24 Hr 98.1 F-99.9 F 74-122 14-30 81-160/45-102 95-100 GENERAL: The patient is sedated and intubated. HEAD: Normal with no signs of trauma. ENT: Ears normal, nares patent, pt intubated NECK: Trachea midline. LUNGS: Rhonchi on bilateral lung [place] HEART: Regular rate and rhythm ABDOMEN: Soft, nontender, nondistended, normoactive bowel sounds EXTREMITIES: 2+ pulses, bilateral lower ext edema SKIN: Warm, dry, normal turgor, no rashes or lesions noted Laboratory Results - last 24 hr 10/16/19 10/16/19 10/16/19 10:51 15:29 15:32 WBC RBC Hgb Hct MCV MCH MCHC RDW Plt Count MPV PT with INR INR PTT (Actin FS) Anticoagulation Therapy Puncture Site Patient Temperature ABG pH ABG pCO2 ABG pO2 ABG HCO3 ABG O2 Sat (Measured) ABG O2 Content ABG Base Excess Polo Test Patient On Oxygen O2 Delivery Device Oxygen Flow Rate Vent Mode Vent Rate Mechanical Rate PEEP Pressure Support Vent Sodium Potassium Chloride Carbon Dioxide Anion Gap BUN Creatinine Est GFR (CKD-EPI)AfAm Est GFR (CKD-EPI)NonAf POC Glucometer 262 180 Random Glucose Calcium Phosphorus Magnesium Total Bilirubin AST ALT Alkaline Phosphatase Total Protein Albumin Triglycerides Random Vancomycin 17.6 10/17/19 10/17/19 10/17/19 05:30 05:30 05:30 WBC 11.8 H RBC 2.79 L Hgb 8.2 L Hct 25.5 L MCV 91.3 MCH 29.6 MCHC 32.4 RDW 16.5 H Plt Count 255 D MPV 9.7 PT with INR INR PTT (Actin FS) Anticoagulation Therapy No Result Required. Puncture Site Right radial Patient Temperature No Result Required. ABG pH 7.485 H ABG pCO2 34.60 L ABG pO2 80.0 ABG HCO3 25.5 ABG O2 Sat (Measured) 96.6 ABG O2 Content No Result Required. ABG Base Excess 2.1 H Polo Test Positive Patient On Oxygen Yes O2 Delivery Device Vent Oxygen Flow Rate 40% Vent Mode A/c Vent Rate 14 Mechanical Rate No Result Required. PEEP 5.0 Pressure Support Vent 450 Sodium 135 L Potassium 4.2 Chloride 102 Carbon Dioxide 27 Anion Gap 7 L BUN 33.3 H Creatinine 0.6 Est GFR (CKD-EPI)AfAm 112.40 Est GFR (CKD-EPI)NonAf 96.98 POC Glucometer Random Glucose 327 H Calcium 6.6 L* Phosphorus 2.3 L Magnesium 2.2 Total Bilirubin 0.9 AST 22 ALT 24 Alkaline Phosphatase 73 Total Protein 5.2 L Albumin 1.6 L Triglycerides 188 H Random Vancomycin 10/17/19 10/17/19 05:30 06:17 WBC RBC Hgb Hct MCV MCH MCHC RDW Plt Count MPV PT with INR 19.50 H INR 1.64 H PTT (Actin FS) 24.7 L Anticoagulation Therapy Puncture Site Patient Temperature ABG pH ABG pCO2 ABG pO2 ABG HCO3 ABG O2 Sat (Measured) ABG O2 Content ABG Base Excess Polo Test Patient On Oxygen O2 Delivery Device Oxygen Flow Rate Vent Mode Vent Rate Mechanical Rate PEEP Pressure Support Vent Sodium Potassium Chloride Carbon Dioxide Anion Gap BUN Creatinine Est GFR (CKD-EPI)AfAm Est GFR (CKD-EPI)NonAf POC Glucometer 315 Random Glucose Calcium Phosphorus Magnesium Total Bilirubin AST ALT Alkaline Phosphatase Total Protein Albumin Triglycerides Random Vancomycin Active Medications Generic Name Dose Route Start Last Admin Trade Name Freq PRN Reason Stop Dose Admin Acetaminophen 650 mg 10/06/19 00:25 10/13/19 17:17 Tylenol - PO 650 mg Q6H PRN Administration FEVER Albuterol Sulfate 2 puff 10/06/19 00:25 Ventolin Hfa Inhaler - IH Q4H PRN SHORT OF BREATH/WHEEZING Apixaban 5 mg 10/06/19 10:00 10/17/19 09:21 Eliquis - PO 5 mg BID MAGI Administration Atorvastatin Calcium 40 mg 10/06/19 22:00 10/16/19 21:09 Lipitor - PO 40 mg HS MAGI Administration Chlorhexidine Gluconate 1 applic 10/06/19 22:00 10/16/19 21:09 Hibiclens For Decolonization - TP 1 applic HS MAGI Administration Norepinephrine Bitartrate 16,000 mcg in 500 mls @ 9.375 mls/hr 10/06/19 07:45 10/17/19 00:00 Levophed Bag - Ns IVPB 0 mcg/min TITR MAGI 0 mls/hr Titration Protocol 5 MCG/MIN Vasopressin 40 units/ Sodium 100 mls @ 5 mls/hr 10/06/19 09:15 10/14/19 21:19 Chloride IVPB 0 units/hr ASDIR MAGI 0 mls/hr Titration Protocol 2 UNITS/HR Propofol 1,000,000 mcg in 100 mls @ 11.97 mls/hr 10/11/19 14:30 10/16/19 18:33 Diprivan - IVPB 10 mcg/kg/min TITR MAGI 3.99 mls/hr Titration Protocol 30 MCG/KG/MIN Piperacillin Sod/Tazobactam 50 mls @ 100 mls/hr 10/12/19 16:15 10/17/19 09:19 Sod 3.375 gm/ Dextrose IVPB 100 mls/hr Q8H-IV MAGI Administration Protocol Fentanyl 500 mcg in 100 mls @ 1 mls/hr 10/13/19 02:30 10/17/19 09:18 Sublimaze Ivpb IVPB 100 mcg/hr TITR MAGI 20 mls/hr Administration Protocol 5 MCG/HR Insulin Aspart 1 vial 10/15/19 11:15 10/17/19 06:22 Novolog Vial Sliding Scale - SQ 8 units TIDAC MAGI Administration Protocol Insulin Detemir 15 units 10/17/19 10:24 Levemir Vial SQ HS MAGI Methylprednisolone Sodium Succinate 30 mg 10/13/19 22:00 10/17/19 09:13 Solu-Medrol - IVPUSH 30 mg BID MAGI Administration Metoprolol Tartrate 5 mg 10/12/19 21:13 10/17/19 09:25 Lopressor Injection - IVPUSH 5 mg Q4H PRN Administration TACHYCARDIA Mirtazapine 15 mg 10/06/19 22:00 10/16/19 21:09 Remeron - PO 15 mg HS MAGI Administration Pantoprazole Sodium 40 mg 10/06/19 11:15 10/17/19 09:17 Protonix Iv IVPUSH 40 mg DAILY MAGI Administration Sotalol HCl 80 mg 10/10/19 22:30 10/17/19 09:12 Betapace - PO 80 mg BID MAGI Administration ASSESSMENT/PLAN: 78 yo male DNR with Pmh afib (on eliquis), angina, chf, htn, gi bleed, recent admission for covid afib and acs in ICU for acute hypoxic resp failure to possible COVID pneumonitis vs. ARDS. Neuro #Acute Metabolic Encephalopathy -On Fentanyl 10 and Propofol 100 -Daily weaning trials -Held mirtazapine for depression Cardiovascular #Afib w/ RVR #Hx of CHF #CAD s/p CABG #Aortic Stenosis s/p AVR #HTN/HLD -HD stable, not requiring pressor support; maintain MAP >65 -Eliquis 5mg bid -Sotalol 80 mg PO BID check QTc below 500 -Cont Atorvastatin 40mg QD -Pt periodically on Lopressor 5 mg IVP PRN for rate control; given this AM Pulm #Acute Hypoxic Respiratory Failure 2/2 possible Covid pneumonitis vs. ARDS -s/p intubation on 10/04 -Solumedrol 30 mg IV BID -Titrate FiO2, PEEP to keep SpO2 >90% -ABG today: 7.48/ pCO2 34.6/ pO2 80/ Spo2 96% -Pt vent settings were rate 24, volume 480, PEEP 5, FiO2 50% Pplat 22 today. If PPlat <20 will start weaning off sedation. -Sedate for vent synchrony ID #Suspected COVID Pneumonia #ARDS -Vanco (started 10/11 BID); vanc trough level ordered today -Zosyn 3.375 Q8H (started 10/11) -ID consult appreciated -CXR today (10/16) showing worse pulm and pleural findings Renal #Hyperkalemia; K+ 6.0 -Given IV Calcium gluconate/insulin/Lokelma given x1; will recheck BMP in afternoon -Monitor I/O's, Cr and electrolytes Heme #Anemia, w/ hx of GI bleed -Stool occult negative - Hgb back up to 8.4. Will continue to monitor GI #Abd Distension/Diarrhea #H/o of GI Bleed -Still with diarrhea, no acute bleeding seen -KUB unremarkable -Protonix 40 IV QD Endo #Hyperglycemia -Levemir 15U HS -BGM/ISS Q6H LTD -Smiley 10/04 -Intubation 10/04 -LIJ 10/13 Prophylaxis - DVT- SCD/ eliquis - GI- protonix Dispo -Cont to monitor in ICU Visit type - Emergency Visit Emergency Visit: Yes ED Registration Date: 09/23/19 Care time: The patient presented to the Emergency Department on the above date and was hospitalized for further evaluation of their emergent condition. - New Patient This patient is new to me today: Yes Date on this admission: 10/17/19 - Critical Care Critical Care patient: Yes Total Critical Care Time (in minutes): 38 Critical Care Statement: The care of this patient involved high complexity decision making to prevent further life threatening deterioration of the patient's condition and/or to evaluate & treat vital organ system(s) failure or risk of failure. - Medication Review Med list reviewed for High Risk Meds patients 65 and older: Yes ATTENDING PHYSICIAN STATEMENT I saw and evaluated the patient. I reviewed the resident's note and discussed the case with the resident. I agree with the resident's findings and plan as documented. SUBJECTIVE: OBJECTIVE: ASSESSMENT AND PLAN:
[2019-10-17] MEDS ORDERED: SODIUM ZIRCONIUM CYCLOSILICATE (LOKELMA) 5 GM PACKET PO ONE (12:00)
[2019-10-17] MEDS: PROPOFOL 1,000,000 MCG/100 ML VIAL IVPB SCH (16:33)
[2019-10-17] MEDS: MIRTAZAPINE 15 MG TABLET (FP) PO SCH (22:39)
[2019-10-17] MEDS: ATORVASTATIN CA 40 MG TABLET (FP) PO SCH (22:39)
[2019-10-17] MEDS: INSULIN (LEVEMIR) 100 UNITS/ML UNITS SQ SCH (22:40)
[2019-10-17] MEDS: CHLORHEXIDINE GLUCONATE 4% CLEANSER FOR DECOLONIZATION TP SCH (22:40)
[2019-10-18] MEDS ORDERED: DEXTROSE 5%-WATER - 50 ML IVPB ONE ×4 (00:50→23:00)
[2019-10-18] MEDS ORDERED: PIPERACILLIN/TAZOBACTAM 3.375 GM VIAL IVPB ONE ×4 (00:50→23:00)
[2019-10-18] MEDS: PIPERACILLIN/TAZOB 3.375 GM 3.375 GM in DEXTROSE 5%-WATER - 50 ML IVPB SCH ×3 (01:39→17:10)
[2019-10-18] MEDS ORDERED: PROPOFOL 1,000,000 MCG/100 ML VIAL ONE (05:05)
[2019-10-18] MEDS: FENTANYL IVPB 500 MCG/100 ML BAG IVPB SCH (06:18)
[2019-10-18] MEDS: INSULIN SLIDING SCALE (NOVOLOG) 1 VIAL SQ SCH ×3 (06:18→17:10)
[2019-10-18 06:27] LABS: ARTERIAL BLD GAS O2 SATURATION 90.6 mmHg (95-98); ARTERIAL BLOOD GAS PO2 58.4 mmHg (80-100); ARTERIAL BLOOD GAS pH 7.397 (7.350-7.450)
[2019-10-18 06:44] LABS: ALLENS TEST POSITIVE
[2019-10-18 06:45] LABS: VENT MODE A/C; VENT RATE 14
[2019-10-18 07:23] LABS: BASO % 0.1 % (0-2.0); EOS % 0.6 % (0-4.5); HEMATOCRIT 26.3 % (35.4-49); HEMOGLOBIN 8.5 GM/dL (11.7-16.9); LYMPH % 5.7 % (8-40); MCH 29.5 pg (25.7-33.7); MCHC 32.4 g/dl (32.0-35.9); MEAN CELL VOLUME 91.2 fl (80-96); MEAN PLT VOLUME 9.5 fl (7.5-11.1); MONO % 2.1 % (3.8-10.2); NEUT % 91.5 % (42.8-82.8); PLATELET COUNT 239 K/MM3 (134-434); RBC 2.88 M/mm3 (4.00-5.60); RDW 16.7 % (11.9-15.9); WHITE BLOOD COUNT 11.9 K/mm3 (4.0-10.0)
[2019-10-18 07:33] LABS: ALBUMIN 1.6 g/dl (3.4-5.0); BILIRUBIN,TOTAL 0.8 mg/dL (0.2-1); BLOOD UREA NITROGEN 51.6 mg/dL (7-18); CREATININE 1.3 mg/dL (0.55-1.3); MAGNESIUM 2.5 mg/dL (1.8-2.4); PHOSPHOROUS 3.7 mg/dL (2.5-4.9); POTASSIUM 4.2 mmol/L (3.5-5.1); TOT PROT 5.2 g/dl (6.4-8.2)
[2019-10-18 09:07] LABS: ANISOCYTOSIS 1+; MACROCYTOSIS 1+; OVALOCYTE 1+; PLATELET ESTIMATE NORMAL
[2019-10-18] MEDS ORDERED: PT OWN MED DRAWER 7, Y5N ONE (09:16)
--- NOTE | 2019-10-18 09:25 | PN ---
Progress Note, Physician History of Present Illness: Sedated and intubated off pressors via RIJ for acute on chronic hypoxic respiratory failure. Remains in NSR post DCCV. - Current Medication List Current Medications: Active Medications Acetaminophen (Tylenol -) 650 mg PO Q6H PRN PRN Reason: FEVER Last Admin: 10/13/19 17:17 Dose: 650 mg Documented by: Albuterol Sulfate (Ventolin Hfa Inhaler -) 2 puff IH Q4H PRN PRN Reason: SHORT OF BREATH/WHEEZING Apixaban (Eliquis -) 5 mg PO BID MAGI Last Admin: 10/17/19 22:40 Dose: 5 mg Documented by: Atorvastatin Calcium (Lipitor -) 40 mg PO HS MAGI Last Admin: 10/17/19 22:39 Dose: 40 mg Documented by: Chlorhexidine Gluconate (Hibiclens For Decolonization -) 1 applic TP HS [facility] Last Admin: 10/17/19 22:40 Dose: 1 applic Documented by: Norepinephrine Bitartrate (Levophed Bag - Ns) 16,000 mcg in 500 mls @ 9.375 mls/hr IVPB TITR MAGI; Protocol Last Titration: 10/17/19 00:00 Dose: 0 mcg/min, 0 mls/hr Documented by: Vasopressin 40 units/ Sodium (Chloride) 100 mls @ 5 mls/hr IVPB ASDIR MAGI; Protocol Last Titration: 10/14/19 21:19 Dose: 0 units/hr, 0 mls/hr Documented by: Propofol (Diprivan -) 1,000,000 mcg in 100 mls @ 11.97 mls/hr IVPB TITR MAGI; Protocol Last Titration: 10/17/19 19:00 Dose: 10 mcg/kg/min, 3.99 mls/hr Documented by: Piperacillin Sod/Tazobactam (Sod 3.375 gm/ Dextrose) 50 mls @ 100 mls/hr IVPB Q8H-IV MAGI; Protocol Last Admin: 10/18/19 01:39 Dose: 100 mls/hr Documented by: Fentanyl (Sublimaze Ivpb) 500 mcg in 100 mls @ 1 mls/hr IVPB TITR MAGI; Protocol Last Admin: 10/18/19 06:18 Dose: 100 mcg/hr, 20 mls/hr Documented by: Insulin Aspart (Novolog Vial Sliding Scale -) 1 vial SQ TIDAC [facility]; Protocol Last Admin: 10/18/19 06:18 Dose: 4 units Documented by: Insulin Detemir (Levemir Vial) 15 units SQ [facility] Last Admin: 10/17/19 22:40 Dose: 15 units Documented by: Methylprednisolone Sodium Succinate (Solu-Medrol -) 30 mg IVPUSH BID [facility] Last Admin: 10/17/19 22:39 Dose: 30 mg Documented by: Metoprolol Tartrate (Lopressor Injection -) 5 mg IVPUSH Q4H PRN PRN Reason: TACHYCARDIA Last Admin: 10/17/19 09:25 Dose: 5 mg Documented by: Mirtazapine (Remeron -) 15 mg PO HS [facility] Last Admin: 10/17/19 22:39 Dose: 15 mg Documented by: Pantoprazole Sodium (Protonix Iv) 40 mg IVPUSH DAILY [facility] Last Admin: 10/17/19 09:17 Dose: 40 mg Documented by: Sotalol HCl (Betapace -) 80 mg PO BID [facility] Last Admin: 10/17/19 22:39 Dose: 80 mg Documented by: - Objective Vital Signs: Vital Signs Temperature 99.4 F 10/18/19 06:00 Pulse Rate 78 10/18/19 08:30 Respiratory Rate 16 10/18/19 08:30 Blood Pressure 118/60 10/18/19 08:00 O2 Sat by Pulse Oximetry (%) 94 L 10/18/19 08:30 Constitutional: Yes: Thin, Other (Sedated and intubated) Cardiovascular: Yes: Regular Rate and Rhythm Respiratory: Yes: Intubated, Mechanically Ventilated Gastrointestinal: Yes: Soft, Hypoactive Bowel Sounds Genitourinary: Yes: Smiley Present Edema: Yes Labs: CBC, BMP 10/18/19 05:35 10/18/19 05:35 INR, PTT INR 1.64 (0.83-1.09) H 10/17/19 05:30 Fibrinogen > 500.0 mg/dL (238-498) H 10/08/19 06:30 - ....Imaging EKG: Report Reviewed (Tele: NSR) Problem List - Problems (1) Acute on chronic diastolic (congestive) heart failure Code(s): I50.33 - ACUTE ON CHRONIC DIASTOLIC (CONGESTIVE) HEART FAILURE (2) Acute respiratory failure with hypoxia Code(s): J96.01 - ACUTE RESPIRATORY FAILURE WITH HYPOXIA (3) Aortic valve stenosis Code(s): I35.0 - NONRHEUMATIC AORTIC (VALVE) STENOSIS Qualifiers: Cardiac valve disease etiology: nonrheumatic Qualified Code(s): I35.0 - Nonrheumatic aortic (valve) stenosis (4) Atrial flutter Code(s): I48.92 - UNSPECIFIED ATRIAL FLUTTER Qualifiers: Atrial flutter type: typical Qualified Code(s): I48.3 - Typical atrial flutter (5) CAD (coronary artery disease) Code(s): I25.10 - ATHSCL HEART DISEASE OF [place] CORONARY ARTERY W/O ANG PCTRS Qualifiers: Coronary Disease-Associated Artery/Lesion type: [place] artery [place] vs. transplanted heart: [place] heart Associated angina: without angina Qualified Code(s): I25.10 - Atherosclerotic heart disease of [place] coronary artery without angina pectoris (6) HTN (hypertension) Code(s): I10 - ESSENTIAL (PRIMARY) HYPERTENSION Qualifiers: Hypertension type: essential hypertension Qualified Code(s): I10 - Essential (primary) hypertension (7) Hx of CABG Code(s): Z95.1 - PRESENCE OF AORTOCORONARY BYPASS GRAFT (8) Hypercholesterolemia Code(s): E78.00 - PURE HYPERCHOLESTEROLEMIA, UNSPECIFIED (9) S/P AVR (aortic valve replacement) Code(s): Z95.2 - PRESENCE OF PROSTHETIC HEART VALVE (10) S/P left atrial appendage ligation Code(s): Z98.890 - OTHER SPECIFIED POSTPROCEDURAL STATES (11) Suspected COVID-19 virus infection Code(s): Z20.828 - CONTACT W AND EXPOSURE TO [facility] VIRAL COMMUNICABLE DISEASES Assessment/Plan Echo 09/03/2019 Post-op septal motion, normal LVEF 50-55%, mod cLVH, normal RV size and fxn, mild LAE, mild MR, TR, bioAVR, mild AR, restrictive physiology Echocardiography October 12, 2018 revealed mild degree of concentric left ventricular hypertrophy with normal left ventricular systolic function and estimated LVEF between 65-70%, mild left atrial dilatation, normal right ventricular size and systolic function, aortic valve bioprosthesis with no aortic valve insufficiency, moderately dilated ascending aorta, mild thickening of the mitral valve leaflets with mild mitral valve regurgitation, mild to moderate tricuspid valve regurgitation with calculated RVSP of [address]: Small-moderate right and very small left effusion, pulm edema TAA 3.9 cm 1. Clinical presentation is consistent with acute hypoxic respiratory failure related to bronchopneumonia with sepsis syndrome, coronavirus/COVID 19- persistent residual infiltrates 2. Diastolic left ventricular dysfunction with chronic class I-II NYHA classification left ventricular failure 3. Paroxysmal atrial flutter [id number] score of 5 post cardioversion on DOAC's/Eliquis 4. CAD post CABG with evidence of demand ischemia related to the above-noted clinical presentation angina pectoris 5. Aortic valve stenosis post SAVR/bio-prosthesis- with LA appendage ligation 6. Hypertensive cardiovascular disease, intermittent hypotension related to the above-noted sepsis syndrome 7. Hyperglycemia- diabetes mellitus 8. Hypercholesterolemia 9. History of altered mental status etiology of which was unclear- prior history of clinical depression 10. Prerenal azotemia 11. Anemia PLAN: 1. Continue Sotalol 80 bid with caution and close monitoring of QTc interval, IV Lopressor as needed for rate-control 2. Continue Atorvastatin 40 qd 3. Continue DOAC's/Eliquis 5 bid with caution and close monitoring of hemoglobin level, maintaining hemoglobin level equal or greater than 8.0 4. Withhold Lasix therapy in view of the above-noted prerenal azotemia 5. Antibiotics as per the primary team, IV steroid taper, vent wean as tolerated Overall poor prognosis
[2019-10-18] MEDS: SOTALOL HCL 80 MG TABLET (FP) PO SCH (09:38)
[2019-10-18] MEDS: methylPREDNISolone NA SUCC 40 MG/1 ML VIAL IVPUSH SCH ×2 (09:39→23:04)
[2019-10-18] MEDS: PANTOPRAZOLE SODIUM 40 MG VIAL IVPUSH SCH (09:39)
[2019-10-18] MEDS: APIXABAN 5 MG TABLET PO SCH ×2 (09:39→23:04)
--- NOTE | 2019-10-18 12:24 | PN ---
Progress Note, Physician History of Present Illness: pt seen/ examined in icu chart reviewed intubated/sedated All f/u noted d/w icu team/ Dr Swetha Cortez also again today - Current Medication List Current Medications: Active Medications Acetaminophen (Tylenol -) 650 mg PO Q6H PRN PRN Reason: FEVER Last Admin: 10/13/19 17:17 Dose: 650 mg Documented by: Albuterol Sulfate (Ventolin Hfa Inhaler -) 2 puff IH Q4H PRN PRN Reason: SHORT OF BREATH/WHEEZING Apixaban (Eliquis -) 5 mg PO BID MAGI Last Admin: 10/18/19 09:39 Dose: 5 mg Documented by: Atorvastatin Calcium (Lipitor -) 40 mg PO HS MAGI Last Admin: 10/17/19 22:39 Dose: 40 mg Documented by: Chlorhexidine Gluconate (Hibiclens For Decolonization -) 1 applic TP HS MAGI Last Admin: 10/17/19 22:40 Dose: 1 applic Documented by: Norepinephrine Bitartrate (Levophed Bag - Ns) 16,000 mcg in 500 mls @ 9.375 mls/hr IVPB TITR MAGI; Protocol Last Titration: 10/17/19 00:00 Dose: 0 mcg/min, 0 mls/hr Documented by: Vasopressin 40 units/ Sodium (Chloride) 100 mls @ 5 mls/hr IVPB ASDIR MAGI; Protocol Last Titration: 10/14/19 21:19 Dose: 0 units/hr, 0 mls/hr Documented by: Propofol (Diprivan -) 1,000,000 mcg in 100 mls @ 11.97 mls/hr IVPB TITR MAGI; Protocol Last Titration: 10/17/19 19:00 Dose: 10 mcg/kg/min, 3.99 mls/hr Documented by: Piperacillin Sod/Tazobactam (Sod 3.375 gm/ Dextrose) 50 mls @ 100 mls/hr IVPB Q8H-IV MAGI; Protocol Last Admin: 10/18/19 09:40 Dose: 100 mls/hr Documented by: Fentanyl (Sublimaze Ivpb) 500 mcg in 100 mls @ 1 mls/hr IVPB TITR [facility]; Protocol Last Admin: 10/18/19 06:18 Dose: 100 mcg/hr, 20 mls/hr Documented by: Insulin Aspart (Novolog Vial Sliding Scale -) 1 vial SQ TIDAC [facility]; Protocol Last Admin: 10/18/19 11:23 Dose: 2 units Documented by: Insulin Detemir (Levemir Vial) [address] [facility] Last Admin: 10/17/19 22:40 Dose: 15 units Documented by: Methylprednisolone Sodium Succinate (Solu-Medrol -) 30 mg IVPUSH BID [facility] Last Admin: 10/18/19 09:39 Dose: 30 mg Documented by: Metoprolol Tartrate (Lopressor Injection -) 5 mg IVPUSH Q4H PRN PRN Reason: TACHYCARDIA Last Admin: 10/17/19 09:25 Dose: 5 mg Documented by: Mirtazapine (Remeron -) 15 mg PO HS [facility] Last Admin: 10/17/19 22:39 Dose: 15 mg Documented by: Pantoprazole Sodium (Protonix Iv) 40 mg IVPUSH DAILY [facility] Last Admin: 10/18/19 09:39 Dose: 40 mg Documented by: Sotalol HCl (Betapace -) 80 mg PO BID [facility] Last Admin: 10/18/19 09:38 Dose: 80 mg Documented by: - Objective Vital Signs: Vital Signs Temperature 99 F 10/18/19 10:00 Pulse Rate 87 10/18/19 10:00 Respiratory Rate 24 H 10/18/19 10:00 Blood Pressure 147/69 10/18/19 10:00 O2 Sat by Pulse Oximetry (%) 96 10/18/19 10:00 Constitutional: Yes: Other (intubated/ sedated) Cardiovascular: Yes: Regular Rate and Rhythm Respiratory: Yes: Diminished Gastrointestinal: Yes: Soft Edema: LLE: 1+, RLE: 1+ Labs: CBC, BMP 10/18/19 05:35 10/18/19 05:35 INR, PTT INR 1.64 (0.83-1.09) H 10/17/19 05:30 Fibrinogen > 500.0 mg/dL (238-498) H 10/08/19 06:30 Problem List - Problems (1) Acute respiratory failure with hypoxia Code(s): J96.01 - ACUTE RESPIRATORY FAILURE WITH HYPOXIA (2) Atrial fibrillation Code(s): I48.91 - UNSPECIFIED ATRIAL FIBRILLATION (3) CAD (coronary artery disease) Code(s): I25.10 - ATHSCL HEART DISEASE OF [place] CORONARY ARTERY W/O ANG PCTRS Qualifiers: Coronary Disease-Associated Artery/Lesion type: [place] artery [place] vs. transplanted heart: [place] heart Associated angina: without angina Qualified Code(s): I25.10 - Atherosclerotic heart disease of [place] coronary artery without angina pectoris (4) History of depression Code(s): Z86.59 - PERSONAL HISTORY OF OTHER MENTAL AND BEHAVIORAL DISORDERS (5) S/P AVR (aortic valve replacement) Code(s): Z95.2 - PRESENCE OF PROSTHETIC HEART VALVE (6) Suspected 2019 novel coronavirus infection Code(s): Z20.828 - CONTACT W AND EXPOSURE TO [facility] VIRAL COMMUNICABLE DISEASES Assessment/Plan acute respiratory failure-- Intubated pneumonitis CHF decompensation Aflutter-- back to sinus-s/p Cardioversion -- COVID negative -- on stress steroids --pressor support --broad spectrum antibiotics weaning as tolerated Patient is DNR Continue present care Monitor Bgm Critical care time--approximately 30 minutes Will continue to follow.
[2019-10-18] MEDS ORDERED: SODIUM CHLORIDE 0.9% 500 ML INFUS.BAG IV ONE ×2 (13:05→13:10)
--- NOTE | 2019-10-18 13:20 | PN ---
Teaching Attending Note Name of Resident: Rubin Valdes ATTENDING PHYSICIAN STATEMENT I saw and evaluated the patient. I reviewed the resident's note and discussed the case with the resident. I agree with the resident's findings and plan as documented. SUBJECTIVE: Pt seen and examined in the ICU. Remains intubated, arousable off sedation but not following commands. Off pressors. Vented on volume assist control with 50% FiO2, PEEP decreased to 5. Pplat 17. OBJECTIVE: Vital Signs Period Temp Pulse Resp BP Sys/Amador Pulse Ox Last 24 Hr 99 F-99.9 F 66-95 16-25 111-151/60-79 92-100 Intake & Output 10/15/19 10/16/19 10/17/19 10/18/19 23:59 23:59 23:59 23:59 Intake Total 1995 2161.3 4319 Output Total 2800 1600 750 Balance -804 561.3 3569 Weight 70.2 kg 70.1 kg 72 kg 72.802 kg Gen: intubated, arousable Heart: RRR Lung: scattered rhonchi Abd: soft, nontender Ext: + edema CBC, BMP 10/18/19 05:35 10/18/19 05:35 Active Medications Acetaminophen (Tylenol -) 650 mg PO Q6H PRN PRN Reason: FEVER Last Admin: 10/13/19 17:17 Dose: 650 mg Documented by: Albuterol Sulfate (Ventolin Hfa Inhaler -) 2 puff IH Q4H PRN PRN Reason: SHORT OF BREATH/WHEEZING Apixaban (Eliquis -) 5 mg PO BID [facility] Last Admin: 10/18/19 09:39 Dose: 5 mg Documented by: Atorvastatin Calcium (Lipitor -) 40 mg PO [facility] Last Admin: 10/17/19 22:39 Dose: 40 mg Documented by: Chlorhexidine Gluconate (Hibiclens For Decolonization -) 1 applic TP [facility] Last Admin: 10/17/19 22:40 Dose: 1 applic Documented by: Norepinephrine Bitartrate (Levophed Bag - Ns) 16,000 mcg in 500 mls @ 9.375 mls/hr IVPB TITR [facility]; Protocol Last Titration: 10/17/19 00:00 Dose: 0 mcg/min, 0 mls/hr Documented by: Vasopressin 40 units/ Sodium (Chloride) 100 mls @ 5 mls/hr IVPB ASDIR [facility]; Protocol Last Titration: 10/14/19 21:19 Dose: 0 units/hr, 0 mls/hr Documented by: Propofol (Diprivan -) 1,000,000 mcg in 100 mls @ 11.97 mls/hr IVPB TITR [facility]; Protocol Last Titration: 10/17/19 19:00 Dose: 10 mcg/kg/min, 3.99 mls/hr Documented by: Piperacillin Sod/Tazobactam (Sod 3.375 gm/ Dextrose) 50 mls @ 100 mls/hr IVPB Q8H-IV [facility]; Protocol Last Admin: 10/18/19 09:40 Dose: 100 mls/hr Documented by: Fentanyl (Sublimaze Ivpb) 500 mcg in 100 mls @ 1 mls/hr IVPB TITR [facility]; Protocol Last Admin: 10/18/19 06:18 Dose: 100 mcg/hr, 20 mls/hr Documented by: Insulin Aspart (Novolog Vial Sliding Scale -) 1 vial SQ TIDAC [facility]; Protocol Last Admin: 10/18/19 11:23 Dose: 2 units Documented by: Insulin Detemir (Levemir Vial) 15 units SQ [facility] Last Admin: 10/17/19 22:40 Dose: 15 units Documented by: Methylprednisolone Sodium Succinate (Solu-Medrol -) 30 mg IVPUSH BID [facility] Last Admin: 10/18/19 09:39 Dose: 30 mg Documented by: Metoprolol Tartrate (Lopressor Injection -) 5 mg IVPUSH Q4H PRN PRN Reason: TACHYCARDIA Last Admin: 10/17/19 09:25 Dose: 5 mg Documented by: Mirtazapine (Remeron -) 15 mg PO HS [facility] Last Admin: 10/17/19 22:39 Dose: 15 mg Documented by: Pantoprazole Sodium (Protonix Iv) 40 mg IVPUSH DAILY [facility] Last Admin: 10/18/19 09:39 Dose: 40 mg Documented by: Sotalol HCl (Betapace -) 80 mg PO BID [facility] Last Admin: 10/18/19 09:38 Dose: 80 mg Documented by: ASSESSMENT AND PLAN: Acute Hypoxic Respiratory Failure Suspected COVID19 Pneumonia ARDS Sepsis Paroxysmal Atrial Fibrillation CAD s/p CABG Aortic Stenosis s/p AVR HTN Hypercholesterolemia Anemia - continue antibiotics - off pressors, maintain MAP >65 - continue steroids - continue anticoagulation - rate control - titrate FiO2, PEEP to keep SpO2 >90% - monitor Pplat - hold sedation to assess mental status - spontaneous breathing trials as tolerated - enteral feeds - DVT/GI prophylaxis - continue ICU monitoring critical care time spent in reviewing chart, evaluating patient and formulating plan 35 min
--- NOTE | 2019-10-18 13:51 | PN ---
Physical Exam: SUBJECTIVE: Patient seen and examined. Pt intubated and sedated. Pt penaloza was kinked and now drained out 1100 cc of urine. OBJECTIVE: GENERAL: The patient is sedated and intubated. HEAD: Normal with no signs of trauma. ENT: Ears normal, nares patent, pt intubated NECK: Trachea midline. LUNGS: Rhonchi on bilateral lung olvera HEART: Regular rate and rhythm ABDOMEN: Soft, mildly distended , normoactive bowel sounds EXTREMITIES: 2+ pulses, bilateral lower ext edema SKIN: Warm, dry, normal turgor, no rashes or lesions noted Vital Signs Period Temp Pulse Resp BP Sys/Amador Pulse Ox Last 24 Hr 99 F-99.9 F 66-95 16-25 111-151/60-79 92-100 Laboratory Results - last 24 hr 10/17/19 10/17/19 10/18/19 16:27 22:23 04:56 WBC RBC Hgb Hct MCV MCH MCHC RDW Plt Count MPV Absolute Neuts (auto) Neutrophils % Neutrophils % (Manual) Band Neutrophils % Lymphocytes % Lymphocytes % (Manual) Monocytes % Monocytes % (Manual) Eosinophils % Eosinophils % (Manual) Basophils % Basophils % (Manual) Myelocytes % (Man) Promyelocytes % (Man) Blast Cells % (Manual) Nucleated RBC % Metamyelocytes Hypochromia Platelet Estimate Polychromasia Poikilocytosis Basophilic Stippling Anisocytosis Microcytosis Macrocytosis Ovalocytes Anticoagulation Therapy Puncture Site Patient Temperature ABG pH ABG pCO2 ABG pO2 ABG HCO3 ABG O2 Sat (Measured) ABG O2 Content ABG Base Excess Polo Test Patient On Oxygen O2 Delivery Device Oxygen Flow Rate Vent Mode Vent Rate Mechanical Rate PEEP Pressure Support Vent Sodium Potassium Chloride Carbon Dioxide Anion Gap BUN Creatinine Est GFR (CKD-EPI)AfAm Est GFR (CKD-EPI)NonAf POC Glucometer 265 227 236 Random Glucose Calcium Phosphorus Magnesium Total Bilirubin AST ALT Alkaline Phosphatase Total Protein Albumin Vancomycin Pre-Dose 10/18/19 10/18/19 10/18/19 05:35 05:35 05:35 WBC 11.9 H RBC 2.88 L Hgb 8.5 L Hct 26.3 L MCV 91.2 MCH 29.5 MCHC 32.4 RDW 16.7 H Plt Count 239 MPV 9.5 Absolute Neuts (auto) 10.9 H Neutrophils % 91.5 H Neutrophils % (Manual) 88.2 H Band Neutrophils % 0.0 Lymphocytes % 5.7 L Lymphocytes % (Manual) 6.9 L D Monocytes % 2.1 L Monocytes % (Manual) 2 L Eosinophils % 0.6 D Eosinophils % (Manual) 0.0 Basophils % 0.1 Basophils % (Manual) 0.0 Myelocytes % (Man) 3 H D Promyelocytes % (Man) 0 Blast Cells % (Manual) 0 Nucleated RBC % 0 Metamyelocytes 0 D Hypochromia 0 Platelet Estimate Normal Polychromasia 1+ Poikilocytosis 1+ Basophilic Stippling 1+ Anisocytosis 1+ Microcytosis 1+ Macrocytosis 1+ Ovalocytes 1+ Anticoagulation Therapy Puncture Site Patient Temperature ABG pH ABG pCO2 ABG pO2 ABG HCO3 ABG O2 Sat (Measured) ABG O2 Content ABG Base Excess Polo Test Patient On Oxygen O2 Delivery Device Oxygen Flow Rate Vent Mode Vent Rate Mechanical Rate PEEP Pressure Support Vent Sodium 132 L Potassium 4.2 Chloride 98 Carbon Dioxide 26 Anion Gap 8 BUN 51.6 H Creatinine 1.3 Est GFR (CKD-EPI)AfAm 61.00 Est GFR (CKD-EPI)NonAf 52.63 POC Glucometer Random Glucose 234 H Calcium 7.0 L Phosphorus 3.7 Magnesium 2.5 H Total Bilirubin 0.8 AST 28 ALT 25 Alkaline Phosphatase 71 Total Protein 5.2 L Albumin 1.6 L Vancomycin Pre-Dose 17.0 H 10/18/19 10/18/19 05:54 11:18 WBC RBC Hgb Hct MCV MCH MCHC RDW Plt Count MPV Absolute Neuts (auto) Neutrophils % Neutrophils % (Manual) Band Neutrophils % Lymphocytes % Lymphocytes % (Manual) Monocytes % Monocytes % (Manual) Eosinophils % Eosinophils % (Manual) Basophils % Basophils % (Manual) Myelocytes % (Man) Promyelocytes % (Man) Blast Cells % (Manual) Nucleated RBC % Metamyelocytes Hypochromia Platelet Estimate Polychromasia Poikilocytosis Basophilic Stippling Anisocytosis Microcytosis Macrocytosis Ovalocytes Anticoagulation Therapy No Result Required. Puncture Site Right radial Patient Temperature No Result Required. ABG pH 7.397 ABG pCO2 33.70 L ABG pO2 58.4 L ABG HCO3 20.3 L ABG O2 Sat (Measured) 90.6 L ABG O2 Content No Result Required. ABG Base Excess -4.0 L Polo Test Positive Patient On Oxygen Yes O2 Delivery Device Vent Oxygen Flow Rate 40% Vent Mode A/c Vent Rate 14 Mechanical Rate Yes PEEP 5.0 Pressure Support Vent 450 Sodium Potassium Chloride Carbon Dioxide Anion Gap BUN Creatinine Est GFR (CKD-EPI)AfAm Est GFR (CKD-EPI)NonAf POC Glucometer 198 Random Glucose Calcium Phosphorus Magnesium Total Bilirubin AST ALT Alkaline Phosphatase Total Protein Albumin Vancomycin Pre-Dose Active Medications Generic Name Dose Route Start Last Admin Trade Name Freq PRN Reason Stop Dose Admin Acetaminophen 650 mg 10/06/19 00:25 10/13/19 17:17 Tylenol - PO 650 mg Q6H PRN Administration FEVER Albuterol Sulfate 2 puff 10/06/19 00:25 Ventolin Hfa Inhaler - IH Q4H PRN SHORT OF BREATH/WHEEZING Apixaban 5 mg 10/06/19 10:00 10/18/19 09:39 Eliquis - PO 5 mg BID MAGI Administration Atorvastatin Calcium 40 mg 10/06/19 22:00 10/17/19 22:39 Lipitor - PO 40 mg HS MAGI Administration Chlorhexidine Gluconate 1 applic 10/06/19 22:00 10/17/19 22:40 Hibiclens For Decolonization - TP 1 applic HS MAGI Administration Norepinephrine Bitartrate 16,000 mcg in 500 mls @ 9.375 mls/hr 10/06/19 07:45 10/17/19 00:00 Levophed Bag - Ns IVPB 0 mcg/min TITR MAGI 0 mls/hr Titration Protocol 5 MCG/MIN Vasopressin 40 units/ Sodium 100 mls @ 5 mls/hr 10/06/19 09:15 10/14/19 21:19 Chloride IVPB 0 units/hr ASDIR MAGI 0 mls/hr Titration Protocol 2 UNITS/HR Propofol 1,000,000 mcg in 100 mls @ 11.97 mls/hr 10/11/19 14:30 10/17/19 19:00 Diprivan - IVPB 10 mcg/kg/min TITR MAGI 3.99 mls/hr Titration Protocol 30 MCG/KG/MIN Piperacillin Sod/Tazobactam 50 mls @ 100 mls/hr 10/12/19 16:15 10/18/19 09:40 Sod 3.375 gm/ Dextrose IVPB 100 mls/hr Q8H-IV MAGI Administration Protocol Fentanyl 500 mcg in 100 mls @ 1 mls/hr 10/13/19 02:30 10/18/19 06:18 Sublimaze Ivpb IVPB 100 mcg/hr TITR MAGI 20 mls/hr Administration Protocol 5 MCG/HR Insulin Aspart 1 vial 10/15/19 11:15 10/18/19 11:23 Novolog Vial Sliding Scale - SQ 2 units TIDAC MAGI Administration Protocol Insulin Detemir 15 units 10/17/19 10:24 10/17/19 22:40 Levemir Vial SQ 15 units HS MAGI Administration Methylprednisolone Sodium Succinate 30 mg 10/13/19 22:00 10/18/19 09:39 Solu-Medrol - IVPUSH 30 mg BID MAGI Administration Metoprolol Tartrate 5 mg 10/12/19 21:13 10/17/19 09:25 Lopressor Injection - IVPUSH 5 mg Q4H PRN Administration TACHYCARDIA Mirtazapine 15 mg 10/06/19 22:00 10/17/19 22:39 Remeron - PO 15 mg HS MAGI Administration Pantoprazole Sodium 40 mg 10/06/19 11:15 10/18/19 09:39 Protonix Iv IVPUSH 40 mg DAILY MAGI Administration Sotalol HCl 80 mg 10/10/19 22:30 10/18/19 09:38 Betapace - PO 80 mg BID MAGI Administration ASSESSMENT/PLAN: 78 yo male DNR with pmh afib, angina, chf, htn, gi bleed, recent admission for covid, afib, and acs in ICU for acute hypoxic resp failure to possible covid pneumonitis vs ARDS Neuro #Acute Metabolic Encephalopathy -Will only continue with propofol -Daily weaning trials -Held mirtazapine for depression Cardiovascular #Afib w/ RVR #Hx of CHF #CAD s/p CABG #Aortic Stenosis s/p AVR #HTN/HLD -HD stable, not requiring pressor support; maintain MAP >65 -Eliquis 5mg bid -Sotalol 80 mg PO BID check QTc below 500 -Cont Atorvastatin 40mg QD -Pt periodically on Lopressor 5 mg IVP PRN for rate control; given this AM Pulm #Acute Hypoxic Respiratory Failure 2/2 possible Covid pneumonitis vs. ARDS -s/p intubation on 10/04 -Solumedrol 30 mg IV BID -Titrate FiO2, PEEP to keep SpO2 >90% -ABG today:pH 7.397 -Pt vent settings were rate 24, volume 450, PEEP 5, FiO2 50% Pplat 8 today. If PPlat <20 will start weaning off sedation. -Sedate for vent synchrony ID #Suspected COVID Pneumonia #ARDS -Zosyn 3.375 Q8H (started 10/11) -ID consult appreciated -CXR today (10/16) showing worse pulm and pleural findings Renal - Pt renal function elevated. Intake and outake low. Penaloza was found to be kinked on fluid challenge and had over 1100 cc of urine. Maintenance fluid was not given due to large amount of urine -Monitor I/O's, Cr and electrolytes Heme #Anemia, w/ hx of GI bleed -Stool occult negative - Hgb back up to 8.5. Will continue to monitor GI #Abd Distension/Diarrhea #H/o of GI Bleed -Still with diarrhea, no acute bleeding seen -KUB unremarkable -Protonix 40 IV QD Endo #Hyperglycemia -Levemir 15U HS -BGM/ISS Q6H LTD -Penaloza 10/04 -Intubation 10/04 -[facility] 10/13 Prophylaxis - DVT- SCD/ eliquis - GI- protonix Dispo -Cont to monitor in ICU Visit type - Emergency Visit Emergency Visit: Yes ED Registration Date: 09/23/19 Care time: The patient presented to the Emergency Department on the above date and was hospitalized for further evaluation of their emergent condition. - New Patient This patient is new to me today: No - Critical Care Critical Care patient: Yes Total Critical Care Time (in minutes): 36 Critical Care Statement: The care of this patient involved high complexity decision making to prevent further life threatening deterioration of the patient's condition and/or to evaluate & treat vital organ system(s) failure or risk of failure. - Medication Review Med list reviewed for High Risk Meds patients 65 and older: Yes ATTENDING PHYSICIAN STATEMENT I saw and evaluated the patient. I reviewed the resident's note and discussed the case with the resident. I agree with the resident's findings and plan as documented. SUBJECTIVE: OBJECTIVE: ASSESSMENT AND PLAN:
[2019-10-18] MEDS ORDERED: SODIUM CHLORIDE 500 ML IV STA (21:45)
[2019-10-18] MEDS: NOREPINEPHRINE BITARTRATE 8,000 MCG/500 ML BAG IVPB SCH (22:20)
[2019-10-18] MEDS: ATORVASTATIN CA 40 MG TABLET (FP) PO SCH (23:04)
[2019-10-18] MEDS: MIRTAZAPINE 15 MG TABLET (FP) PO SCH (23:04)
[2019-10-18] MEDS: PROPOFOL 1,000,000 MCG/100 ML VIAL IVPB SCH (23:04)
[2019-10-18] MEDS: INSULIN (LEVEMIR) 100 UNITS/ML UNITS SQ SCH (23:06)
[2019-10-18] MEDS: CHLORHEXIDINE GLUCONATE 4% CLEANSER FOR DECOLONIZATION TP SCH (23:06)
[2019-10-19] MEDS: SOTALOL HCL 80 MG TABLET (FP) PO SCH ×3 (02:04→22:40)
[2019-10-19] MEDS: PIPERACILLIN/TAZOB 3.375 GM 3.375 GM in DEXTROSE 5%-WATER - 50 ML IVPB SCH ×3 (02:05→17:23)
[2019-10-19 06:12] LABS: ARTERIAL BLD GAS O2 SATURATION 94.3 mmHg (95-98); ARTERIAL BLOOD GAS BASE EXCESS -3.2 mmol/L (-2-2); ARTERIAL BLOOD GAS PO2 71.8 mmHg (80-100)
--- NOTE | 2019-10-19 06:29 | PN ---
Progress Note (short form) - Note Progress Note: Chief Complaint: Events noted, notes reviewed, remains intubated and sedated, responding to verbal commands by opening eyes, sinus rhythm is maintained with premature supraventricular contractions History of Present Illness: Seen and examined in the ICU. Events noted, notes reviewed, remains intubated and sedated, responding to verbal commands by opening eyes, sinus rhythm is maintained with premature supraventricular contractions Chest x-ray from this a.m. noted Medications: Current Medications Generic Name Dose Route Start Last Admin Trade Name Freq PRN Reason Stop Dose Admin Acetaminophen 650 mg 10/06/19 00:25 10/13/19 17:17 Tylenol - PO 650 mg Q6H PRN Administration FEVER Albuterol Sulfate 2 puff 10/06/19 00:25 Ventolin Hfa Inhaler - IH Q4H PRN SHORT OF BREATH/WHEEZING Apixaban 5 mg 10/06/19 10:00 10/18/19 23:04 Eliquis - PO 5 mg BID MAGI Administration Atorvastatin Calcium 40 mg 10/06/19 22:00 10/18/19 23:04 Lipitor - PO 40 mg HS MAGI Administration Chlorhexidine Gluconate 1 applic 10/06/19 22:00 10/18/19 23:06 Hibiclens For Decolonization - TP 1 applic HS MAGI Administration Vasopressin 40 units/ Sodium 100 mls @ 5 mls/hr 10/06/19 09:15 10/14/19 21:19 Chloride IVPB 0 units/hr ASDIR MAGI 0 mls/hr Titration Protocol 2 UNITS/HR Propofol 1,000,000 mcg in 100 mls @ 11.97 mls/hr 10/11/19 14:30 10/18/19 23:04 Diprivan - IVPB 10 mcg/kg/min TITR MAGI 3.99 mls/hr Administration Protocol 30 MCG/KG/MIN Piperacillin Sod/Tazobactam 50 mls @ 100 mls/hr 10/12/19 16:15 10/19/19 02:05 Sod 3.375 gm/ Dextrose IVPB 100 mls/hr Q8H-IV MAGI Administration Protocol Fentanyl 500 mcg in 100 mls @ 1 mls/hr 10/13/19 02:30 10/18/19 19:00 Sublimaze Ivpb IVPB 80 mcg/hr TITR MAGI 16 mls/hr Titration Protocol 5 MCG/HR Norepinephrine Bitartrate 8,000 mcg in 500 mls @ 18.75 mls/hr 10/18/19 21:15 10/18/19 22:20 Levophed Bag IVPB 15 mcg/min TITR MAGI 56.25 mls/hr Administration Protocol 5 MCG/MIN Insulin Aspart 1 vial 10/15/19 11:15 10/18/19 17:10 Novolog Vial Sliding Scale - SQ 6 units TIDAC MAGI Administration Protocol Insulin Detemir 15 units 10/17/19 10:24 10/18/19 23:06 Levemir Vial SQ 15 units HS [facility] Administration Methylprednisolone Sodium Succinate 30 mg 10/13/19 22:00 10/18/19 23:04 Solu-Medrol - IVPUSH 30 mg BID [facility] Administration Metoprolol Tartrate 5 mg 10/12/19 21:13 10/17/19 09:25 Lopressor Injection - IVPUSH 5 mg Q4H PRN Administration TACHYCARDIA Mirtazapine 15 mg 10/06/19 22:00 10/18/19 23:04 Remeron - PO 15 mg HS [facility] Administration Pantoprazole Sodium 40 mg 10/06/19 11:15 10/18/19 09:39 Protonix Iv IVPUSH 40 mg DAILY [facility] Administration Sotalol HCl 80 mg 10/10/19 22:30 10/19/19 02:04 Betapace - PO Not Given BID [facility] Review of Systems Unable to obtain/sedated and intubated Vital Signs: Last Vital Signs Temp Pulse Resp BP Pulse Ox 100.8 F H 81 21 H 113/52 L 97 10/18/19 20:00 10/19/19 04:00 10/19/19 05:03 10/19/19 04:00 10/19/19 04:00 Intake & Output 10/16/19 10/17/19 10/18/19 10/19/19 23:59 23:59 23:59 23:59 Intake Total 2161.3 4319 580 Output Total 6204 264 7411 Balance 561.3 3569 -1570 Weight 154 lb 8.705 oz 158 lb 11.725 oz 160 lb 8 oz Neck: Supple Negative JVD Respiratory: Diminished Breath Sounds at the Bases Cardiovascular: S1 S2 Regular with frequent ectopics grade 2/6 systolic ejection murmur Gastrointestinal: Soft Benign Normal Bowel Sounds Ext: Generalized Edema Labs: CBC, BMP 09/01/20 05:17 10/19/19 05:17 CBC, BMP 10/18/19 05:35 10/18/19 05:35 Hepatic Panel Total Bilirubin 0.8 mg/dL (0.2-1) 10/18/19 05:35 AST 28 U/L (15-37) 10/18/19 05:35 ALT 25 U/L (13-61) 10/18/19 05:35 Alkaline Phosphatase 71 U/L (45-117) 10/18/19 05:35 Albumin 1.6 g/dl (3.4-5.0) L 10/18/19 05:35 INR, PTT INR 1.64 (0.83-1.09) H 10/17/19 05:30 Fibrinogen > 500.0 mg/dL (238-498) H 10/08/19 06:30 Assessment/Plan ASSESSMENT: 1. Clinical presentation is consistent with acute hypoxic respiratory failure related to bronchopneumonia with sepsis syndrome (increasing white cell count), coronavirus/COVID 19- persistent residual infiltrates 2. Diastolic left ventricular dysfunction with chronic class I-II NYHA classification left ventricular failure 3. Paroxysmal atrial flutter [id number] score of 5 post cardioversion on DOAC's/Eliquis 4. CAD post CABG with evidence of demand ischemia related to the above-noted clinical presentation angina pectoris 5. Aortic valve stenosis post SAVR/bio-prosthesis- with LA appendage ligation 6. Hypertensive cardiovascular disease, intermittent hypotension related to the above-noted sepsis syndrome 7. Hyperglycemia- diabetes mellitus 8. Hypercholesterolemia 9. History of altered mental status etiology of which was unclear- prior history of clinical depression 10. Prerenal azotemia- persistent 11. Anemia PLAN: 1. Continue Sotalol with caution and close monitoring of QTc interval 2. As outlined in the prior notes may utilize intravenous Cardizem therapy with caution as needed hemodynamics permitting for management of recurrent arrhythmia 3. Continue Atorvastatin therapy 4. Continue DOAC's/Eliquis therapy with caution and close monitoring of hemoglobin level, maintaining hemoglobin level equal or greater than 8.0 5. Withhold Lasix therapy in view of the above-noted prerenal azotemia 6. Antibiotics as per the primary team Overall poor prognosis Kate Ang MD
[2019-10-19 06:30] LABS: ALLENS TEST POSITIVE
[2019-10-19 06:31] LABS: VENT MODE A/C; VENT RATE 14
[2019-10-19] MEDS: INSULIN SLIDING SCALE (NOVOLOG) 1 VIAL SQ SCH ×3 (06:42→17:07)
[2019-10-19 07:35] LABS: INR 2.14 (0.83-1.09); PROTHROMBIN TIME (PATIENT) 25.5 SEC (9.7-13.0)
[2019-10-19 07:36] LABS: ACTIVATED PTT 25.9 SECONDS (25.2-36.5); BASO % 0.1 % (0-2.0); HEMATOCRIT 24.9 % (35.4-49); LYMPH % 1.6 % (8-40); MCH 29.7 pg (25.7-33.7); MCHC 32.1 g/dl (32.0-35.9); MEAN CELL VOLUME 92.6 fl (80-96); MEAN PLT VOLUME 9.2 fl (7.5-11.1); MONO % 1.2 % (3.8-10.2); NEUT % 97.1 % (42.8-82.8); PLATELET COUNT 228 K/MM3 (134-434); RBC 2.69 M/mm3 (4.00-5.60); RDW 17.5 % (11.9-15.9)
[2019-10-19 07:42] LABS: ALBUMIN 1.4 g/dl (3.4-5.0); BLOOD UREA NITROGEN 58.5 mg/dL (7-18); CREATININE 1.4 mg/dL (0.55-1.3); MAGNESIUM 2.3 mg/dL (1.8-2.4); POTASSIUM 3.9 mmol/L (3.5-5.1); TOT PROT 4.9 g/dl (6.4-8.2)
[2019-10-19 07:43] LABS: BILIRUBIN,TOTAL 1.1 mg/dL (0.2-1); PHOSPHOROUS 4.5 mg/dL (2.5-4.9)
[2019-10-19 08:06] LABS: CALCIUM 6.9 mg/dL (8.5-10.1)
[2019-10-19 08:46] LABS: WHITE BLOOD COUNT 32.2 K/mm3 (4.0-10.0)
[2019-10-19] MEDS ORDERED: KCL 10 MEQ IVPB 10 MEQ/100 ML INFUS.BAG IVPB SCH (09:00)
[2019-10-19] MEDS ORDERED: DEXTROSE 5%-WATER - 50 ML IVPB ONE ×2 (09:30→17:21)
[2019-10-19] MEDS ORDERED: PIPERACILLIN/TAZOBACTAM 3.375 GM VIAL IVPB ONE ×2 (09:30→17:21)
[2019-10-19] MEDS: methylPREDNISolone NA SUCC 40 MG/1 ML VIAL IVPUSH SCH ×2 (09:41→21:36)
[2019-10-19] MEDS: APIXABAN 5 MG TABLET PO SCH ×2 (09:41→21:36)
[2019-10-19] MEDS: PANTOPRAZOLE SODIUM 40 MG VIAL IVPUSH SCH (09:41)
[2019-10-19] MEDS: FENTANYL IVPB 500 MCG/100 ML BAG IVPB SCH ×2 (09:42→21:37)
--- NOTE | 2019-10-19 10:38 | EKG ---
Test Reason : Blood Pressure : / mmHG Vent. Rate : 070 BPM Atrial Rate : 070 BPM P-R Int : 122 ms QRS Dur : 098 ms QT Int : 458 ms P-R-T Axes : 079 004 141 degrees QTc Int : 494 ms SINUS RHYTHM WITH PREMATURE ATRIAL COMPLEXES LEFT VENTRICULAR HYPERTROPHY WITH REPOLARIZATION ABNORMALITY PROLONGED QT ABNORMAL ECG WHEN COMPARED WITH ECG OF 11-OCT-2019 08:57, PREMATURE ATRIAL COMPLEXES ARE NOW PRESENT T WAVE INVERSION NO LONGER EVIDENT IN INFERIOR LEADS T WAVE INVERSION MORE EVIDENT IN ANTERIOR LEADS Confirmed by Lloyd Goode MD ([id number]) on 10/19/2019 10:37:51 AM Referred By: Confirmed By:Lloyd Goode MD
[2019-10-19 11:26] LABS: ANISOCYTOSIS 1+; MACROCYTOSIS 0; PLATELET ESTIMATE NORMAL
--- NOTE | 2019-10-19 12:02 | PN ---
Teaching Attending Note Name of Resident: Rubin Valdes ATTENDING PHYSICIAN STATEMENT I saw and evaluated the patient. I reviewed the resident's note and discussed the case with the resident. I agree with the resident's findings and plan as documented. SUBJECTIVE: Pt seen and examined in the ICU. Remains intubated, sedated. Back on levophed gtt. Vented on volume assist control with 60% FiO2, PEEP 5. Diarrhea per nursing. OBJECTIVE: Vital Signs Period Temp Pulse Resp BP Sys/Amador Pulse Ox Last 24 Hr 98.1 F-100.8 F 62-98 15-36 82-131/43-75 95-100 Intake & Output 10/16/19 10/17/19 10/18/19 10/19/19 23:59 23:59 23:59 23:59 Intake Total 2161.3 4319 580 2662 Output Total 8889 752 1613 1300 Balance 561.3 3569 -1570 1362 Weight 70.1 kg 72 kg 72.802 kg 74.743 kg Gen: intubated, arousable Heart: RRR Lung: scattered rhonchi Abd: soft, nontender Ext: + edema CBC, BMP 10/19/19 05:17 10/19/19 05:17 Active Medications Acetaminophen (Tylenol -) 650 mg PO Q6H PRN PRN Reason: FEVER Last Admin: 10/13/19 17:17 Dose: 650 mg Documented by: Albuterol Sulfate (Ventolin Hfa Inhaler -) 2 puff IH Q4H PRN PRN Reason: SHORT OF BREATH/WHEEZING Apixaban (Eliquis -) 5 mg PO BID [facility] Last Admin: 10/19/19 09:41 Dose: 5 mg Documented by: Atorvastatin Calcium (Lipitor -) 40 mg PO [facility] Last Admin: 10/18/19 23:04 Dose: 40 mg Documented by: Chlorhexidine Gluconate (Hibiclens For Decolonization -) 1 applic TP [facility] Last Admin: 10/18/19 23:06 Dose: 1 applic Documented by: Vasopressin 40 units/ Sodium (Chloride) 100 mls @ 5 mls/hr IVPB ASDIR [facility]; Protocol Last Titration: 10/14/19 21:19 Dose: 0 units/hr, 0 mls/hr Documented by: Propofol (Diprivan -) 1,000,000 mcg in 100 mls @ 11.97 mls/hr IVPB TITR [facility]; Protocol Last Admin: 10/18/19 23:04 Dose: 10 mcg/kg/min, 3.99 mls/hr Documented by: Piperacillin Sod/Tazobactam (Sod 3.375 gm/ Dextrose) 50 mls @ 100 mls/hr IVPB Q8H-IV MAGI; Protocol Last Admin: 10/19/19 09:41 Dose: 100 mls/hr Documented by: Fentanyl (Sublimaze Ivpb) 500 mcg in 100 mls @ 1 mls/hr IVPB TITR MAGI; Protocol Last Admin: 10/19/19 09:42 Dose: 50 mcg/hr, 10 mls/hr Documented by: Norepinephrine Bitartrate (Levophed Bag) 8,000 mcg in 500 mls @ 18.75 mls/hr IVPB TITR [facility]; Protocol Last Admin: 10/18/19 22:20 Dose: 15 mcg/min, 56.25 mls/hr Documented by: Insulin Aspart (Novolog Vial Sliding Scale -) 1 vial SQ TIDAC [facility]; Protocol Last Admin: 10/19/19 06:42 Dose: 4 units Documented by: Insulin Detemir (Levemir Vial) 15 units SQ [facility] Last Admin: 10/18/19 23:06 Dose: 15 units Documented by: Methylprednisolone Sodium Succinate (Solu-Medrol -) 30 mg IVPUSH BID [facility] Last Admin: 10/19/19 09:41 Dose: 30 mg Documented by: Metoprolol Tartrate (Lopressor Injection -) 5 mg IVPUSH Q4H PRN PRN Reason: TACHYCARDIA Last Admin: 10/17/19 09:25 Dose: 5 mg Documented by: Mirtazapine (Remeron -) 15 mg PO HS [facility] Last Admin: 10/18/19 23:04 Dose: 15 mg Documented by: Pantoprazole Sodium (Protonix Iv) 40 mg IVPUSH DAILY [facility] Last Admin: 10/19/19 09:41 Dose: 40 mg Documented by: Sotalol HCl (Betapace -) 80 mg PO BID [facility] Last Admin: 10/19/19 09:41 Dose: 80 mg Documented by: ASSESSMENT AND PLAN: Acute Hypoxic Respiratory Failure Suspected COVID19 Pneumonia ARDS Sepsis Acute Kidney Injury Paroxysmal Atrial Fibrillation CAD s/p CABG Aortic Stenosis s/p AVR HTN Hypercholesterolemia Anemia - stool for C diff - continue antibiotics - titrate pressors to maintain MAP >65 - IVF - monitor urine output, creatinine - continue steroids - continue anticoagulation - rate control - titrate FiO2, PEEP to keep SpO2 >90% - monitor Pplat - sedate for vent synchrony - enteral feeds - DVT/GI prophylaxis - continue ICU monitoring critical care time spent in reviewing chart, evaluating patient and formulating plan 35 min
--- NOTE | 2019-10-19 12:06 | PN ---
Progress Note (short form) - Note Progress Note: Palliative care f/up remains intubated on 40 % Fio2 DNR back on pressors BILATERAL INFILTRATES- ? PNEUMONITIS ? CHF LOOSE STOOL, ELEVATED WBC ? C DIFFICILE 78yo male with h/o HTN, hyperlipidemia, atrial fibrillation, LV diastolic dysfunction, CAD s/p CABG, angina, s/p bioprosthetic AVR with resection of LA appendage, hx of GI bleed with multiple recent admissions ( 08/31- 09/12, 09/19-09/21, 09/22- current) for hypoxia and suspected COVID19 ( tested negative multiple times) , o2 dependent. + depression/ anxiety, worsening debility currently in ICU Patient had been showing steady improvement in parameters with tapering of oxygen and off pressors today there appears to be somewhat of a decline I had conversations with patient's son Shreyas again today- Family is aware of his guarded prognosis given underlying comorbidities. Family have made him DNR. They are hoping and praying for a miracle. They are hopeful because of improvement in respiratory status. They are hoping that he can come off the ventilator and be able to go home. We discussed possible trach/ PEG and Shreyas says his father would not have wanted that but they are not sure about care home prognosis and his chances of recovery. Family's desire that Osito is able to breathe on his own and able to come home appear to be unrealistic given that he was in STR before this hospitalization and will probably need prolonged rehabilitation even in the best case scenario of being able to come off the ventilator. We discussed withdrawal of care including discontinuing a/bs, pressors, compassionate extubation. We discussed what Osito's wishes would have been in this current situation given how unhappy he was when he was o2 dependent last month. Family are still hoping and praying for a miracle. They would not want Osito to be hooked onto tubes for a prolonged period of time. They do not want to opt for trach/ PEG as per my conversations with Shreyas. Emotional support was provided. They are aware that all supportive measures will continue for now but if family decides for withdrawal of care and comfort measures Osito will be kept comfortable. Obie Cruz MD [phone] Problem List - Problems (1) Acute on chronic diastolic (congestive) heart failure Code(s): I50.33 - ACUTE ON CHRONIC DIASTOLIC (CONGESTIVE) HEART FAILURE (2) Acute respiratory failure with hypoxia Code(s): J96.01 - ACUTE RESPIRATORY FAILURE WITH HYPOXIA (3) Atrial flutter Code(s): I48.92 - UNSPECIFIED ATRIAL FLUTTER Qualifiers: Atrial flutter type: typical Qualified Code(s): I48.3 - Typical atrial flutter (4) Depression Code(s): F32.9 - MAJOR DEPRESSIVE DISORDER, SINGLE EPISODE, UNSPECIFIED Qualifiers: Depression Type: other depression Qualified Code(s): F32.89 - Other specified depressive episodes (5) Failure to thrive in adult Code(s): R62.7 - ADULT FAILURE TO THRIVE (6) S/P AVR (aortic valve replacement) Code(s): Z95.2 - PRESENCE OF PROSTHETIC HEART VALVE (7) S/P left atrial appendage ligation Code(s): Z98.890 - OTHER SPECIFIED POSTPROCEDURAL STATES (8) Suspected COVID-19 virus infection Code(s): Z20.828 - CONTACT W AND EXPOSURE TO [facility] VIRAL COMMUNICABLE DISEASES
--- NOTE | 2019-10-19 12:10 | PN ---
Progress Note (short form) - Note Progress Note: remains intubated on pressors sedated Vital Signs - 24 hr 10/18/19 10/18/19 10/18/19 14:00 16:00 16:51 Temperature 99 F Pulse Rate 86 87 Respiratory 18 20 36 H Rate Blood Pressure 131/75 99/59 L O2 Sat by Pulse 98 98 Oximetry (%) 10/18/19 10/18/19 10/18/19 18:00 20:00 20:15 Temperature 99 F 100.8 F H Pulse Rate 98 H 83 Respiratory 20 23 H 28 H Rate Blood Pressure 102/54 L 82/43 L O2 Sat by Pulse 98 98 98 Oximetry (%) 10/18/19 10/18/19 10/19/19 21:00 22:00 00:00 Temperature Pulse Rate 86 87 Respiratory 23 H 23 H Rate Blood Pressure 108/49 L 120/66 O2 Sat by Pulse 98 97 Oximetry (%) 10/19/19 10/19/19 10/19/19 00:20 02:00 04:00 Temperature 99.9 F H Pulse Rate 85 81 Respiratory 24 H 24 H 24 H Rate Blood Pressure 121/47 L 113/52 L O2 Sat by Pulse 95 97 Oximetry (%) 10/19/19 10/19/19 10/19/19 05:03 06:00 08:00 Temperature 98.6 F Pulse Rate 70 62 Respiratory 21 H 19 15 Rate Blood Pressure 130/67 93/46 L O2 Sat by Pulse 100 100 Oximetry (%) 10/19/19 10/19/19 10/19/19 08:41 09:00 10:00 Temperature 98.1 F Pulse Rate 73 78 Respiratory 23 H 16 16 Rate Blood Pressure 104/58 L O2 Sat by Pulse 100 100 100 Oximetry (%) Current Medications Generic Name Dose Route Start Last Admin Trade Name Freq PRN Reason Stop Dose Admin Acetaminophen 650 mg 10/06/19 00:25 10/13/19 17:17 Tylenol - PO 650 mg Q6H PRN Administration FEVER Albuterol Sulfate 2 puff 10/06/19 00:25 Ventolin Hfa Inhaler - IH Q4H PRN SHORT OF BREATH/WHEEZING Apixaban 5 mg 10/06/19 10:00 10/19/19 09:41 Eliquis - PO 5 mg BID MAGI Administration Atorvastatin Calcium 40 mg 10/06/19 22:00 10/18/19 23:04 Lipitor - PO 40 mg HS MAGI Administration Chlorhexidine Gluconate 1 applic 10/06/19 22:00 10/18/19 23:06 Hibiclens For Decolonization - TP 1 applic HS [facility] Administration Vasopressin 40 units/ Sodium 100 mls @ 5 mls/hr 10/06/19 09:15 10/14/19 21:19 Chloride IVPB 0 units/hr ASDIR MAGI 0 mls/hr Titration Protocol 2 UNITS/HR Propofol 1,000,000 mcg in 100 mls @ 11.97 mls/hr 10/11/19 14:30 10/18/19 23:04 Diprivan - IVPB 10 mcg/kg/min TITR MAGI 3.99 mls/hr Administration Protocol 30 MCG/KG/MIN Piperacillin Sod/Tazobactam 50 mls @ 100 mls/hr 10/12/19 16:15 10/19/19 09:41 Sod 3.375 gm/ Dextrose IVPB 100 mls/hr Q8H-IV MAGI Administration Protocol Fentanyl 500 mcg in 100 mls @ 1 mls/hr 10/13/19 02:30 10/19/19 09:42 Sublimaze Ivpb IVPB 50 mcg/hr TITR MAGI 10 mls/hr Administration Protocol 5 MCG/HR Norepinephrine Bitartrate 8,000 mcg in 500 mls @ 18.75 mls/hr 10/18/19 21:15 10/18/19 22:20 Levophed Bag IVPB 15 mcg/min TITR MAGI 56.25 mls/hr Administration Protocol 5 MCG/MIN Insulin Aspart 1 vial 10/15/19 11:15 10/19/19 12:08 Novolog Vial Sliding Scale - SQ 8 units TIDAC [facility] Administration Protocol Insulin Detemir 15 units 10/17/19 10:24 10/18/19 23:06 Levemir Vial SQ 15 units HS [facility] Administration Methylprednisolone Sodium Succinate 30 mg 10/13/19 22:00 10/19/19 09:41 Solu-Medrol - IVPUSH 30 mg BID MAGI Administration Metoprolol Tartrate 5 mg 10/12/19 21:13 10/17/19 09:25 Lopressor Injection - IVPUSH 5 mg Q4H PRN Administration TACHYCARDIA Mirtazapine 15 mg 10/06/19 22:00 10/18/19 23:04 Remeron - PO 15 mg HS MAGI Administration Pantoprazole Sodium 40 mg 10/06/19 11:15 10/19/19 09:41 Protonix Iv IVPUSH 40 mg DAILY MAGI Administration Sotalol HCl 80 mg 10/10/19 22:30 10/19/19 09:41 Betapace - PO 80 mg BID MAGI Administration Laboratory Results - last 24 hr 10/18/19 10/18/19 10/19/19 16:55 23:15 05:17 WBC 32.2 H* RBC 2.69 L Hgb 8.0 L Hct 24.9 L MCV 92.6 MCH 29.7 MCHC 32.1 RDW 17.5 H Plt Count 228 MPV 9.2 Absolute Neuts (auto) 31.2 H Neutrophils % 97.1 H Neutrophils % (Manual) 89.6 H Band Neutrophils % 7.3 Lymphocytes % 1.6 L D Lymphocytes % (Manual) 1.0 L D Monocytes % 1.2 L Monocytes % (Manual) 0 L D Eosinophils % 0.0 D Eosinophils % (Manual) 0.0 Basophils % 0.1 Basophils % (Manual) 0.0 Myelocytes % (Man) 2 D Promyelocytes % (Man) 0 Blast Cells % (Manual) 0 Nucleated RBC % 0 Metamyelocytes 0 Hypochromia 0 Platelet Estimate Normal Polychromasia 1+ Poikilocytosis 0 Anisocytosis 1+ Microcytosis 1+ Macrocytosis 0 PT with INR INR PTT (Actin FS) Anticoagulation Therapy Puncture Site Patient Temperature ABG pH ABG pCO2 ABG pO2 ABG HCO3 ABG O2 Sat (Measured) ABG O2 Content ABG Base Excess Polo Test Patient On Oxygen O2 Delivery Device Oxygen Flow Rate Vent Mode Vent Rate Mechanical Rate PEEP Pressure Support Vent Sodium Potassium Chloride Carbon Dioxide Anion Gap BUN Creatinine Est GFR (CKD-EPI)AfAm Est GFR (CKD-EPI)NonAf POC Glucometer 215 122 Random Glucose Calcium Phosphorus Magnesium Total Bilirubin AST ALT Alkaline Phosphatase Total Protein Albumin 10/19/19 10/19/19 10/19/19 05:17 05:17 05:20 WBC RBC Hgb Hct MCV MCH MCHC RDW Plt Count MPV Absolute Neuts (auto) Neutrophils % Neutrophils % (Manual) Band Neutrophils % Lymphocytes % Lymphocytes % (Manual) Monocytes % Monocytes % (Manual) Eosinophils % Eosinophils % (Manual) Basophils % Basophils % (Manual) Myelocytes % (Man) Promyelocytes % (Man) Blast Cells % (Manual) Nucleated RBC % Metamyelocytes Hypochromia Platelet Estimate Polychromasia Poikilocytosis Anisocytosis Microcytosis Macrocytosis PT with INR 25.50 H INR 2.14 H PTT (Actin FS) 25.9 Anticoagulation Therapy No Result Required. Puncture Site Right radial Patient Temperature No Result Required. ABG pH 7.380 ABG pCO2 37.00 ABG pO2 71.8 L ABG HCO3 21.5 L ABG O2 Sat (Measured) 94.3 L ABG O2 Content No Result Required. ABG Base Excess -3.2 L Polo Test Positive Patient On Oxygen Yes O2 Delivery Device Vent Oxygen Flow Rate 40% Vent Mode A/c Vent Rate 14 Mechanical Rate Yes PEEP 5.0 Pressure Support Vent 450 Sodium 136 Potassium 3.9 Chloride 102 Carbon Dioxide 24 Anion Gap 10 BUN 58.5 H Creatinine 1.4 H Est GFR (CKD-EPI)AfAm 55.77 Est GFR (CKD-EPI)NonAf 48.12 POC Glucometer Random Glucose 254 H Calcium 6.9 L* Phosphorus 4.5 Magnesium 2.3 Total Bilirubin 1.1 H AST 44 H ALT 35 Alkaline Phosphatase 98 Total Protein 4.9 L Albumin 1.4 L 10/19/19 10/19/19 06:21 11:40 WBC RBC Hgb Hct MCV MCH MCHC RDW Plt Count MPV Absolute Neuts (auto) Neutrophils % Neutrophils % (Manual) Band Neutrophils % Lymphocytes % Lymphocytes % (Manual) Monocytes % Monocytes % (Manual) Eosinophils % Eosinophils % (Manual) Basophils % Basophils % (Manual) Myelocytes % (Man) Promyelocytes % (Man) Blast Cells % (Manual) Nucleated RBC % Metamyelocytes Hypochromia Platelet Estimate Polychromasia Poikilocytosis Anisocytosis Microcytosis Macrocytosis PT with INR INR PTT (Actin FS) Anticoagulation Therapy Puncture Site Patient Temperature ABG pH ABG pCO2 ABG pO2 ABG HCO3 ABG O2 Sat (Measured) ABG O2 Content ABG Base Excess Polo Test Patient On Oxygen O2 Delivery Device Oxygen Flow Rate Vent Mode Vent Rate Mechanical Rate PEEP Pressure Support Vent Sodium Potassium Chloride Carbon Dioxide Anion Gap BUN Creatinine Est GFR (CKD-EPI)AfAm Est GFR (CKD-EPI)NonAf POC Glucometer 238 303 Random Glucose Calcium Phosphorus Magnesium Total Bilirubin AST ALT Alkaline Phosphatase Total Protein Albumin S1 S2 Irregular Lungs decreased breath sounds Abd- soft, NT No edema A/P acute respiratory failure Fever, pneumonitis CHF decompensation Aflutter anemia- s/p PRBC yesterday -- COVID negative -- ICU management --s/p cardioversion -- rate control -- continue with meds --broad spectrum antibiotics -- prognosis is guarded -- on pressor support patient is DNR Problem List - Problems (1) Acute on chronic diastolic (congestive) heart failure Code(s): I50.33 - ACUTE ON CHRONIC DIASTOLIC (CONGESTIVE) HEART FAILURE (2) Acute respiratory failure with hypoxia Code(s): J96.01 - ACUTE RESPIRATORY FAILURE WITH HYPOXIA (3) Atrial fibrillation Code(s): I48.91 - UNSPECIFIED ATRIAL FIBRILLATION (4) GERD (gastroesophageal reflux disease) Code(s): K21.9 - GASTRO-ESOPHAGEAL REFLUX DISEASE WITHOUT ESOPHAGITIS (5) HTN (hypertension) Code(s): I10 - ESSENTIAL (PRIMARY) HYPERTENSION Qualifiers: Hypertension type: essential hypertension Qualified Code(s): I10 - Essential (primary) hypertension (6) Suspected 2019 novel coronavirus infection Code(s): Z20.828 - CONTACT W AND EXPOSURE TO [facility] VIRAL COMMUNICABLE DISEASES
[2019-10-19] MEDS ORDERED: POTASSIUM CHLORIDE TABS 20 MEQ TABLET.ER (FP) PO ONE (13:00)
--- NOTE | 2019-10-19 14:18 | PN ---
Progress Note, Physician Chief Complaint: LETHARGIC SEDATED ON VENTILATOR ON PRESSORS LOW GRADE TEMP NOTED MARKED INCREASE IN WBC + LOOSE STOOL CXR B/L INFILTRATES SPUTUM KLEBSIELLA - Current Medication List Current Medications: Active Medications Acetaminophen (Tylenol -) 650 mg PO Q6H PRN PRN Reason: FEVER Last Admin: 10/13/19 17:17 Dose: 650 mg Documented by: Albuterol Sulfate (Ventolin Hfa Inhaler -) 2 puff IH Q4H PRN PRN Reason: SHORT OF BREATH/WHEEZING Apixaban (Eliquis -) 5 mg PO BID MAGI Last Admin: 10/19/19 09:41 Dose: 5 mg Documented by: Atorvastatin Calcium (Lipitor -) 40 mg PO HS MAGI Last Admin: 10/18/19 23:04 Dose: 40 mg Documented by: Chlorhexidine Gluconate (Hibiclens For Decolonization -) 1 applic TP HS [facility] Last Admin: 10/18/19 23:06 Dose: 1 applic Documented by: Vasopressin 40 units/ Sodium (Chloride) 100 mls @ 5 mls/hr IVPB ASDIR MAGI; Protocol Last Titration: 10/14/19 21:19 Dose: 0 units/hr, 0 mls/hr Documented by: Propofol (Diprivan -) 1,000,000 mcg in 100 mls @ 11.97 mls/hr IVPB TITR MAGI; Protocol Last Admin: 10/18/19 23:04 Dose: 10 mcg/kg/min, 3.99 mls/hr Documented by: Piperacillin Sod/Tazobactam (Sod 3.375 gm/ Dextrose) 50 mls @ 100 mls/hr IVPB Q8H-IV MAGI; Protocol Last Admin: 10/19/19 09:41 Dose: 100 mls/hr Documented by: Fentanyl (Sublimaze Ivpb) 500 mcg in 100 mls @ 1 mls/hr IVPB TITR MAGI; Protocol Last Admin: 10/19/19 09:42 Dose: 50 mcg/hr, 10 mls/hr Documented by: Norepinephrine Bitartrate (Levophed Bag) 8,000 mcg in 500 mls @ 18.75 mls/hr IVPB TITR MAGI; Protocol Last Admin: 10/18/19 22:20 Dose: 15 mcg/min, 56.25 mls/hr Documented by: Sodium Chloride (Normal Saline -) 1,000 mls @ 75 mls/hr IV ASDIR [facility] Insulin Aspart (Novolog Vial Sliding Scale -) 1 vial SQ TIDAC [facility]; Protocol Last Admin: 10/19/19 12:08 Dose: 8 units Documented by: Insulin Detemir (Levemir Vial) 15 units SQ [facility] Last Admin: 10/18/19 23:06 Dose: 15 units Documented by: Methylprednisolone Sodium Succinate (Solu-Medrol -) 30 mg IVPUSH BID [facility] Last Admin: 10/19/19 09:41 Dose: 30 mg Documented by: Metoprolol Tartrate (Lopressor Injection -) 5 mg IVPUSH Q4H PRN PRN Reason: TACHYCARDIA Last Admin: 10/17/19 09:25 Dose: 5 mg Documented by: Mirtazapine (Remeron -) 15 mg PO [facility] Last Admin: 10/18/19 23:04 Dose: 15 mg Documented by: Pantoprazole Sodium (Protonix Iv) 40 mg IVPUSH DAILY [facility] Last Admin: 10/19/19 09:41 Dose: 40 mg Documented by: Sotalol HCl (Betapace -) 80 mg PO BID [facility] Last Admin: 10/19/19 09:41 Dose: 80 mg Documented by: Vancomycin HCl (Vancomycin Oral Solution) 250 mg PO Q6HPO [facility] - Objective Vital Signs: Vital Signs Temperature 98.1 F 10/19/19 10:00 Pulse Rate 68 10/19/19 12:00 Respiratory Rate 19 10/19/19 12:00 Blood Pressure 145/71 10/19/19 12:00 O2 Sat by Pulse Oximetry (%) 100 10/19/19 12:00 Constitutional: Yes: No Distress Cardiovascular: Yes: Regular Rate and Rhythm, S1, S2 Respiratory: Yes: Mechanically Ventilated Gastrointestinal: Yes: Normal Bowel Sounds, Soft. No: Tenderness Edema: Yes Labs: CBC, BMP 10/19/19 05:17 10/19/19 05:17 INR, PTT INR 2.14 (0.83-1.09) H 10/19/19 05:17 Fibrinogen > 500.0 mg/dL (238-498) H 10/08/19 06:30 Assessment/Plan BILATERAL INFILTRATES ? PNEUMONITIS ? CHF RESP FAILURE LOOSE STOOL, ELEVATED WBC R/O C DIFFICILE S/P TAVR COVID -19 (-) X5 CONTINUE EMPIRIC ZOSYN PO VANCOMYCIN VENTILATORY SUPPORT
--- NOTE | 2019-10-19 14:30 | PN ---
Physical Exam: SUBJECTIVE: Patient seen and examined sedated and intubated. Pt has large amount of diarrhea, spiked fever. Pt was put on pressors due to hypotension on propofol now propofol and fentanyl. OBJECTIVE: Vital Signs Period Temp Pulse Resp BP Sys/Amador Pulse Ox Last 24 Hr 98.1 F-100.8 F 62-98 15-36 82-145/43-71 95-100 GENERAL: The patient is sedated and intubated. HEAD: Normal with no signs of trauma. ENT: Ears normal, nares patent, pt intubated NECK: Trachea midline. LUNGS: Rhonchi on bilateral lung olvera HEART: Regular rate and rhythm ABDOMEN: Soft, mildly distended , normoactive bowel sounds EXTREMITIES: 2+ pulses, bilateral lower ext edema SKIN: Warm, dry, normal turgor, no rashes or lesions noted Laboratory Results - last 24 hr 10/18/19 10/18/19 10/19/19 16:55 23:15 05:17 WBC 32.2 H* RBC 2.69 L Hgb 8.0 L Hct 24.9 L MCV 92.6 MCH 29.7 MCHC 32.1 RDW 17.5 H Plt Count 228 MPV 9.2 Absolute Neuts (auto) 31.2 H Neutrophils % 97.1 H Neutrophils % (Manual) 89.6 H Band Neutrophils % 7.3 Lymphocytes % 1.6 L D Lymphocytes % (Manual) 1.0 L D Monocytes % 1.2 L Monocytes % (Manual) 0 L D Eosinophils % 0.0 D Eosinophils % (Manual) 0.0 Basophils % 0.1 Basophils % (Manual) 0.0 Myelocytes % (Man) 2 D Promyelocytes % (Man) 0 Blast Cells % (Manual) 0 Nucleated RBC % 0 Metamyelocytes 0 Hypochromia 0 Platelet Estimate Normal Polychromasia 1+ Poikilocytosis 0 Anisocytosis 1+ Microcytosis 1+ Macrocytosis 0 PT with INR INR PTT (Actin FS) Anticoagulation Therapy Puncture Site Patient Temperature ABG pH ABG pCO2 ABG pO2 ABG HCO3 ABG O2 Sat (Measured) ABG O2 Content ABG Base Excess Polo Test Patient On Oxygen O2 Delivery Device Oxygen Flow Rate Vent Mode Vent Rate Mechanical Rate PEEP Pressure Support Vent Sodium Potassium Chloride Carbon Dioxide Anion Gap BUN Creatinine Est GFR (CKD-EPI)AfAm Est GFR (CKD-EPI)NonAf POC Glucometer 215 122 Random Glucose Calcium Phosphorus Magnesium Total Bilirubin AST ALT Alkaline Phosphatase Total Protein Albumin 10/19/19 10/19/19 10/19/19 05:17 05:17 05:20 WBC RBC Hgb Hct MCV MCH MCHC RDW Plt Count MPV Absolute Neuts (auto) Neutrophils % Neutrophils % (Manual) Band Neutrophils % Lymphocytes % Lymphocytes % (Manual) Monocytes % Monocytes % (Manual) Eosinophils % Eosinophils % (Manual) Basophils % Basophils % (Manual) Myelocytes % (Man) Promyelocytes % (Man) Blast Cells % (Manual) Nucleated RBC % Metamyelocytes Hypochromia Platelet Estimate Polychromasia Poikilocytosis Anisocytosis Microcytosis Macrocytosis PT with INR 25.50 H INR 2.14 H PTT (Actin FS) 25.9 Anticoagulation Therapy No Result Required. Puncture Site Right radial Patient Temperature No Result Required. ABG pH 7.380 ABG pCO2 37.00 ABG pO2 71.8 L ABG HCO3 21.5 L ABG O2 Sat (Measured) 94.3 L ABG O2 Content No Result Required. ABG Base Excess -3.2 L Polo Test Positive Patient On Oxygen Yes O2 Delivery Device Vent Oxygen Flow Rate 40% Vent Mode A/c Vent Rate 14 Mechanical Rate Yes PEEP 5.0 Pressure Support Vent 450 Sodium 136 Potassium 3.9 Chloride 102 Carbon Dioxide 24 Anion Gap 10 BUN 58.5 H Creatinine 1.4 H Est GFR (CKD-EPI)AfAm 55.77 Est GFR (CKD-EPI)NonAf 48.12 POC Glucometer Random Glucose 254 H Calcium 6.9 L* Phosphorus 4.5 Magnesium 2.3 Total Bilirubin 1.1 H AST 44 H ALT 35 Alkaline Phosphatase 98 Total Protein 4.9 L Albumin 1.4 L 10/19/19 10/19/19 06:21 11:40 WBC RBC Hgb Hct MCV MCH MCHC RDW Plt Count MPV Absolute Neuts (auto) Neutrophils % Neutrophils % (Manual) Band Neutrophils % Lymphocytes % Lymphocytes % (Manual) Monocytes % Monocytes % (Manual) Eosinophils % Eosinophils % (Manual) Basophils % Basophils % (Manual) Myelocytes % (Man) Promyelocytes % (Man) Blast Cells % (Manual) Nucleated RBC % Metamyelocytes Hypochromia Platelet Estimate Polychromasia Poikilocytosis Anisocytosis Microcytosis Macrocytosis PT with INR INR PTT (Actin FS) Anticoagulation Therapy Puncture Site Patient Temperature ABG pH ABG pCO2 ABG pO2 ABG HCO3 ABG O2 Sat (Measured) ABG O2 Content ABG Base Excess Polo Test Patient On Oxygen O2 Delivery Device Oxygen Flow Rate Vent Mode Vent Rate Mechanical Rate PEEP Pressure Support Vent Sodium Potassium Chloride Carbon Dioxide Anion Gap BUN Creatinine Est GFR (CKD-EPI)AfAm Est GFR (CKD-EPI)NonAf POC Glucometer 238 303 Random Glucose Calcium Phosphorus Magnesium Total Bilirubin AST ALT Alkaline Phosphatase Total Protein Albumin Active Medications Generic Name Dose Route Start Last Admin Trade Name Freq PRN Reason Stop Dose Admin Acetaminophen 650 mg 10/06/19 00:25 10/13/19 17:17 Tylenol - PO 650 mg Q6H PRN Administration FEVER Albuterol Sulfate 2 puff 10/06/19 00:25 Ventolin Hfa Inhaler - IH Q4H PRN SHORT OF BREATH/WHEEZING Apixaban 5 mg 10/06/19 10:00 10/19/19 09:41 Eliquis - PO 5 mg BID MAGI Administration Atorvastatin Calcium 40 mg 10/06/19 22:00 10/18/19 23:04 Lipitor - PO 40 mg HS MAGI Administration Chlorhexidine Gluconate 1 applic 10/06/19 22:00 10/18/19 23:06 Hibiclens For Decolonization - TP 1 applic HS MAGI Administration Vasopressin 40 units/ Sodium 100 mls @ 5 mls/hr 10/06/19 09:15 10/14/19 21:19 Chloride IVPB 0 units/hr ASDIR MAGI 0 mls/hr Titration Protocol 2 UNITS/HR Propofol 1,000,000 mcg in 100 mls @ 11.97 mls/hr 10/11/19 14:30 10/18/19 23:04 Diprivan - IVPB 10 mcg/kg/min TITR MAGI 3.99 mls/hr Administration Protocol 30 MCG/KG/MIN Piperacillin Sod/Tazobactam 50 mls @ 100 mls/hr 10/12/19 16:15 10/19/19 09:41 Sod 3.375 gm/ Dextrose IVPB 100 mls/hr Q8H-IV MAGI Administration Protocol Fentanyl 500 mcg in 100 mls @ 1 mls/hr 10/13/19 02:30 10/19/19 09:42 Sublimaze Ivpb IVPB 50 mcg/hr TITR MAGI 10 mls/hr Administration Protocol 5 MCG/HR Norepinephrine Bitartrate 8,000 mcg in 500 mls @ 18.75 mls/hr 10/18/19 21:15 10/18/19 22:20 Levophed Bag IVPB 15 mcg/min TITR MAGI 56.25 mls/hr Administration Protocol 5 MCG/MIN Sodium Chloride 1,000 mls @ 75 mls/hr 10/19/19 12:30 Normal Saline - IV ASDIR MAGI Insulin Aspart 1 vial 10/15/19 11:15 10/19/19 12:08 Novolog Vial Sliding Scale - SQ 8 units TIDAC MAGI Administration Protocol Insulin Detemir 15 units 10/17/19 10:24 10/18/19 23:06 Levemir Vial SQ 15 units HS MAGI Administration Methylprednisolone Sodium Succinate 30 mg 10/13/19 22:00 10/19/19 09:41 Solu-Medrol - IVPUSH 30 mg BID MAGI Administration Metoprolol Tartrate 5 mg 10/12/19 21:13 10/17/19 09:25 Lopressor Injection - IVPUSH 5 mg Q4H PRN Administration TACHYCARDIA Mirtazapine 15 mg 10/06/19 22:00 10/18/19 23:04 Remeron - PO 15 mg HS MAGI Administration Pantoprazole Sodium 40 mg 10/06/19 11:15 10/19/19 09:41 Protonix Iv IVPUSH 40 mg DAILY MAGI Administration Sotalol HCl 80 mg 10/10/19 22:30 10/19/19 09:41 Betapace - PO 80 mg BID MAGI Administration Vancomycin HCl 250 mg 10/19/19 18:00 Vancomycin Oral Solution PO Q6HPO [facility] ASSESSMENT/PLAN: 78 yo male DNR with pmh afib, angina, chf, htn, gi bleed, recent admission for covid, afib, and acs in ICU for acute hypoxic resp failure to possible covid pneumonitis vs ARDS Neuro #Acute Metabolic Encephalopathy -Pt sedated on propofol and fentanyl trying to wean off -Daily weaning trials -Held mirtazapine for depression Cardiovascular #Afib w/ RVR #Hx of CHF #CAD s/p CABG #Aortic Stenosis s/p AVR #HTN/HLD -HD stable, not requiring pressor support; maintain MAP >65 -Eliquis 5mg bid -Continue Sotalol 80 mg PO BID with caution with close monitoring of QTc. Pt QTc was greater than 500 today was given supratherapeutic amount of K to lower QTc -Cont Atorvastatin 40mg QD -Pt periodically on Lopressor 5 mg IVP PRN for rate control; given this AM -may utilize intravenous Cardizem therapy with caution as needed hemodynamics permitting for management of recurrent arrhythmia Pulm #Acute Hypoxic Respiratory Failure 2/2 possible Covid pneumonitis vs. ARDS -s/p intubation on 10/04 -Solumedrol 30 mg IV BID -Titrate FiO2, PEEP to keep SpO2 >90% -ABG today:pH 7.397 -Pt vent settings were rate 14 volume 450, PEEP 5, FiO2 50% Pplat 8 today. If PPlat <20 will start weaning off sedation. -Sedate for vent synchrony ID #Suspected COVID Pneumonia #ARDS -Zosyn 3.375 Q8H (started 10/11) -ID consult appreciated -CXR today (10/18) slight improvement - Pt has WBC of 32.9 and diarrhea with low grade fever concern for Cdif started on PO vanco q6hrs (10/18). - Bcx Sputum cx, urine cx, and cdiff cx taken Renal - Pt renal function elevated. Intake and outake low. - Pt was started back on maintenance fluids 75 cc/hour -Monitor I/O's, Cr and electrolytes Heme #Anemia, w/ hx of GI bleed -Stool occult negative - Hgb back up to 8.5. Will continue to monitor GI #Abd Distension/Diarrhea #H/o of GI Bleed -Still with diarrhea, no acute bleeding seen -KUB unremarkable -Protonix 40 IV QD Endo #Hyperglycemia -Levemir 15U HS -BGM/ISS Q6H LTD -Smiley 10/04 -Intubation 10/04 -[facility] 10/13 Prophylaxis - DVT- SCD/ eliquis - GI- protonix Dispo -Cont to monitor in ICU Visit type - Emergency Visit Emergency Visit: Yes ED Registration Date: 09/23/19 Care time: The patient presented to the Emergency Department on the above date and was hospitalized for further evaluation of their emergent condition. - New Patient This patient is new to me today: No - Critical Care Critical Care patient: Yes Total Critical Care Time (in minutes): 36 Critical Care Statement: The care of this patient involved high complexity decision making to prevent further life threatening deterioration of the patient's condition and/or to evaluate & treat vital organ system(s) failure or risk of failure. - Medication Review Med list reviewed for High Risk Meds patients 65 and older: Yes ATTENDING PHYSICIAN STATEMENT I saw and evaluated the patient. I reviewed the resident's note and discussed the case with the resident. I agree with the resident's findings and plan as documented. SUBJECTIVE: OBJECTIVE: ASSESSMENT AND PLAN:
[2019-10-19] MEDS: SODIUM CHLORIDE 1,000 ML IV SCH (15:25)
[2019-10-19] MEDS: PROPOFOL 1,000,000 MCG/100 ML VIAL IVPB SCH (15:26)
[2019-10-19] MEDS: NOREPINEPHRINE BITARTRATE 8,000 MCG/500 ML BAG IVPB SCH ×2 (17:23→21:35)
[2019-10-19] MEDS ORDERED: VANCOMYCIN 250 MG/5 ML ORAL SOLUTION PO SCH (18:00)
[2019-10-19] MEDS: MIRTAZAPINE 15 MG TABLET (FP) PO SCH (21:36)
[2019-10-19] MEDS: ATORVASTATIN CA 40 MG TABLET (FP) PO SCH (21:36)
[2019-10-19] MEDS: CHLORHEXIDINE GLUCONATE 4% CLEANSER FOR DECOLONIZATION TP SCH (21:37)
[2019-10-19] MEDS: INSULIN (LEVEMIR) 100 UNITS/ML UNITS SQ SCH (21:42)
[2019-10-20] MEDS: VANCOMYCIN 250 MG/5 ML ORAL SOLUTION PO SCH ×4 (00:40→17:56)
[2019-10-20] MEDS ORDERED: DEXTROSE 5%-WATER - 50 ML IVPB ONE ×3 (01:28→17:58)
[2019-10-20] MEDS ORDERED: PIPERACILLIN/TAZOBACTAM 3.375 GM VIAL IVPB ONE ×4 (01:28→17:58)
[2019-10-20] MEDS: PIPERACILLIN/TAZOB 3.375 GM 3.375 GM in DEXTROSE 5%-WATER - 50 ML IVPB SCH ×3 (01:41→17:58)
[2019-10-20 05:43] LABS: ARTERIAL BLD GAS O2 SATURATION 97.6 mmHg (95-98); ARTERIAL BLOOD GAS BASE EXCESS -3.7 mmol/L (-2-2); ARTERIAL BLOOD GAS PO2 97.8 mmHg (80-100); ARTERIAL BLOOD GAS pH 7.419 (7.350-7.450)
[2019-10-20 05:46] LABS: ALLENS TEST POSITIVE
[2019-10-20 05:47] LABS: VENT MODE A/C
[2019-10-20 05:48] LABS: VENT RATE 14
[2019-10-20] MEDS: INSULIN SLIDING SCALE (NOVOLOG) 1 VIAL SQ SCH ×3 (06:20→16:53)
[2019-10-20 07:14] LABS: BASO % 0.1 % (0-2.0); HEMATOCRIT 21.9 % (35.4-49); HEMOGLOBIN 7.1 GM/dL (11.7-16.9); LYMPH % 2.1 % (8-40); MCH 29.4 pg (25.7-33.7); MCHC 32.5 g/dl (32.0-35.9); MEAN CELL VOLUME 90.5 fl (80-96); MEAN PLT VOLUME 9.4 fl (7.5-11.1); MONO % 1.3 % (3.8-10.2); NEUT % 96.5 % (42.8-82.8); PLATELET COUNT 184 K/MM3 (134-434); RBC 2.42 M/mm3 (4.00-5.60); RDW 17.1 % (11.9-15.9)
[2019-10-20 07:24] LABS: INR 1.93 (0.83-1.09); PROTHROMBIN TIME (PATIENT) 22.9 SEC (9.7-13.0)
[2019-10-20 07:25] LABS: ACTIVATED PTT 24.5 SECONDS (25.2-36.5)
[2019-10-20 07:27] LABS: ALBUMIN 1.3 g/dl (3.4-5.0); BILIRUBIN,TOTAL 0.6 mg/dL (0.2-1); BLOOD UREA NITROGEN 45.4 mg/dL (7-18); MAGNESIUM 2.1 mg/dL (1.8-2.4); PHOSPHOROUS 2.7 mg/dL (2.5-4.9); POTASSIUM 3.9 mmol/L (3.5-5.1); TOT PROT 4.5 g/dl (6.4-8.2)
[2019-10-20 07:35] LABS: CALCIUM 6.5 mg/dL (8.5-10.1)
[2019-10-20] MEDS ORDERED: PT OWN MED DRAWER 7, Y5N ONE ×4 (08:29→22:15)
[2019-10-20] MEDS: PANTOPRAZOLE SODIUM 40 MG VIAL IVPUSH SCH (09:02)
[2019-10-20] MEDS: methylPREDNISolone NA SUCC 40 MG/1 ML VIAL IVPUSH SCH ×2 (09:02→21:37)
[2019-10-20] MEDS: SOTALOL HCL 80 MG TABLET (FP) PO SCH ×2 (09:02→22:43)
[2019-10-20] MEDS: APIXABAN 5 MG TABLET PO SCH ×2 (09:02→21:37)
[2019-10-20 09:27] LABS: ANISOCYTOSIS 0; MACROCYTOSIS 0; PLATELET ESTIMATE NORMAL
[2019-10-20] MEDS: NOREPINEPHRINE BITARTRATE 8,000 MCG/500 ML BAG IVPB SCH ×2 (10:18→21:24)
--- NOTE | 2019-10-20 10:59 | PN ---
Progress Note, Physician History of Present Illness: Sedated and intubated on levophed gtt 8mcg. Vented on volume assist control with 50% FiO2, PEEP 8. Pplat 31. Remains in NSR post DCCV. - Current Medication List Current Medications: Active Medications Acetaminophen (Tylenol -) 650 mg PO Q6H PRN PRN Reason: FEVER Last Admin: 10/13/19 17:17 Dose: 650 mg Documented by: Albuterol Sulfate (Ventolin Hfa Inhaler -) 2 puff IH Q4H PRN PRN Reason: SHORT OF BREATH/WHEEZING Apixaban (Eliquis -) 5 mg PO BID [facility] Last Admin: 10/20/19 09:02 Dose: 5 mg Documented by: Atorvastatin Calcium (Lipitor -) 40 mg PO [facility] Last Admin: 10/19/19 21:36 Dose: 40 mg Documented by: Chlorhexidine Gluconate (Hibiclens For Decolonization -) 1 applic TP [facility] Last Admin: 10/19/19 21:37 Dose: 1 applic Documented by: Propofol (Diprivan -) 1,000,000 mcg in 100 mls @ 11.97 mls/hr IVPB TITR [facility]; Protocol Last Admin: 10/19/19 15:26 Dose: 10 mcg/kg/min, 3.99 mls/hr Documented by: Piperacillin Sod/Tazobactam (Sod 3.375 gm/ Dextrose) 50 mls @ 100 mls/hr IVPB Q8H-IV [facility]; Protocol Last Admin: 10/20/19 09:02 Dose: 100 mls/hr Documented by: Norepinephrine Bitartrate (Levophed Bag) 8,000 mcg in 500 mls @ 18.75 mls/hr IVPB TITR [facility]; Protocol Last Admin: 10/20/19 10:18 Dose: 8 mcg/min, 30 mls/hr Documented by: Sodium Chloride (Normal Saline -) 1,000 mls @ 75 mls/hr IV ASDIR [facility] Last Admin: 10/19/19 15:25 Dose: 75 mls/hr Documented by: Insulin Aspart (Novolog Vial Sliding Scale -) 1 vial SQ TIDAC [facility]; Protocol Last Admin: 10/20/19 06:20 Dose: 8 units Documented by: Insulin Detemir (Levemir Vial) 15 units SQ HS [facility] Last Admin: 10/19/19 21:42 Dose: 15 units Documented by: Methylprednisolone Sodium Succinate (Solu-Medrol -) 30 mg IVPUSH BID [facility] Last Admin: 10/20/19 09:02 Dose: 30 mg Documented by: Metoprolol Tartrate (Lopressor Injection -) 5 mg IVPUSH Q4H PRN PRN Reason: TACHYCARDIA Last Admin: 10/17/19 09:25 Dose: 5 mg Documented by: Mirtazapine (Remeron -) 15 mg PO HS [facility] Last Admin: 10/19/19 21:36 Dose: 15 mg Documented by: Pantoprazole Sodium (Protonix Iv) 40 mg IVPUSH DAILY [facility] Last Admin: 10/20/19 09:02 Dose: 40 mg Documented by: Sotalol HCl (Betapace -) 80 mg PO BID [facility] Last Admin: 10/20/19 09:02 Dose: 80 mg Documented by: Vancomycin HCl (Vancomycin Oral Solution) 125 mg PO Q6HPO [facility] Last Admin: 10/20/19 06:20 Dose: 125 mg Documented by: - Objective Vital Signs: Vital Signs Temperature 98.4 F 10/20/19 10:00 Pulse Rate 72 10/20/19 10:16 Respiratory Rate 25 H 10/20/19 10:16 Blood Pressure 113/53 L 10/20/19 10:00 O2 Sat by Pulse Oximetry (%) 100 10/20/19 10:00 Constitutional: Yes: Other (Sedated and intubated) Cardiovascular: Yes: Regular Rate and Rhythm Respiratory: Yes: Intubated, Mechanically Ventilated Gastrointestinal: Yes: Soft, Hypoactive Bowel Sounds Genitourinary: Yes: Smiley Present Edema: Yes Labs: CBC, BMP 10/20/19 05:25 10/20/19 05:25 INR, PTT INR 1.93 (0.83-1.09) H 10/20/19 05:25 Fibrinogen > 500.0 mg/dL (238-498) H 10/08/19 06:30 - ....Imaging EKG: Report Reviewed (Tele: NSR) Problem List - Problems (1) Acute on chronic diastolic (congestive) heart failure Code(s): I50.33 - ACUTE ON CHRONIC DIASTOLIC (CONGESTIVE) HEART FAILURE (2) Acute respiratory failure with hypoxia Code(s): J96.01 - ACUTE RESPIRATORY FAILURE WITH HYPOXIA (3) Aortic valve stenosis Code(s): I35.0 - NONRHEUMATIC AORTIC (VALVE) STENOSIS Qualifiers: Cardiac valve disease etiology: nonrheumatic Qualified Code(s): I35.0 - Nonrheumatic aortic (valve) stenosis (4) Atrial flutter Code(s): I48.92 - UNSPECIFIED ATRIAL FLUTTER Qualifiers: Atrial flutter type: typical Qualified Code(s): I48.3 - Typical atrial flutter (5) CAD (coronary artery disease) Code(s): I25.10 - ATHSCL HEART DISEASE OF [place] CORONARY ARTERY W/O ANG PCTRS Qualifiers: Coronary Disease-Associated Artery/Lesion type: [place] artery [place] vs. transplanted heart: [place] heart Associated angina: without angina Qualified Code(s): I25.10 - Atherosclerotic heart disease of [place] coronary artery without angina pectoris (6) HTN (hypertension) Code(s): I10 - ESSENTIAL (PRIMARY) HYPERTENSION Qualifiers: Hypertension type: essential hypertension Qualified Code(s): I10 - Essential (primary) hypertension (7) Hx of CABG Code(s): Z95.1 - PRESENCE OF AORTOCORONARY BYPASS GRAFT (8) Hypercholesterolemia Code(s): E78.00 - PURE HYPERCHOLESTEROLEMIA, UNSPECIFIED (9) S/P AVR (aortic valve replacement) Code(s): Z95.2 - PRESENCE OF PROSTHETIC HEART VALVE (10) S/P left atrial appendage ligation Code(s): Z98.890 - OTHER SPECIFIED POSTPROCEDURAL STATES (11) Suspected COVID-19 virus infection Code(s): Z20.828 - CONTACT W AND EXPOSURE TO [facility] VIRAL COMMUNICABLE DISEASES Assessment/Plan Echo 09/03/2019 Post-op septal motion, normal LVEF 50-55%, mod cLVH, normal RV size and fxn, mild LAE, mild MR, TR, bioAVR, mild AR, restrictive physiology Echocardiography October 12, 2018 revealed mild degree of concentric left ventricular hypertrophy with normal left ventricular systolic function and estimated LVEF between 65-70%, mild left atrial dilatation, normal right ventricular size and systolic function, aortic valve bioprosthesis with no aortic valve insufficiency, moderately dilated ascending aorta, mild thickening of the mitral valve leaflets with mild mitral valve regurgitation, mild to moderate tricuspid valve regurgitation with calculated RVSP of [address]: Small-moderate right and very small left effusion, pulm edema TAA 3.9 cm 1. Clinical presentation is consistent with acute hypoxic respiratory failure related to bronchopneumonia with sepsis syndrome, coronavirus/COVID 19- persistent residual infiltrates 2. Diastolic left ventricular dysfunction with chronic class I-II NYHA classification left ventricular failure 3. Paroxysmal atrial flutter [id number] score of 5 post cardioversion on DOAC's/Eliquis 4. CAD post CABG with evidence of demand ischemia related to the above-noted clinical presentation angina pectoris 5. Aortic valve stenosis post SAVR/bio-prosthesis- with LA appendage ligation 6. Hypertensive cardiovascular disease, intermittent hypotension related to the above-noted sepsis syndrome 7. Hyperglycemia- diabetes mellitus 8. Hypercholesterolemia 9. History of altered mental status etiology of which was unclear- prior history of clinical depression 10. GURU 11. Anemia PLAN: 1. Wean Levophed for MAP>65 mmHg 1. Continue Sotalol 80 bid with caution and close monitoring of QTc interval, IV Lopressor as needed for rate-control 2. Continue Atorvastatin 40 qd 3. Continue DOAC's/Eliquis 5 bid with caution and close monitoring of hemoglobin level, maintaining hemoglobin level equal or greater than 8.0 4. Withhold Lasix therapy in view of the above-noted prerenal azotemia 5. Antibiotics as per the primary team, IV steroid taper, vent wean as tolerated, enteral feeds, f/u c. diff toxins Overall poor prognosis
--- NOTE | 2019-10-20 11:04 | PN ---
Progress Note (short form) - Note Progress Note: remains intubated on pressors awake today keeps shaking his head "no" responding to simple commands Vital Signs - 24 hr 10/19/19 10/19/19 10/19/19 12:00 12:53 14:00 Temperature 98.0 F Pulse Rate 68 79 Respiratory 19 17 22 H Rate Blood Pressure 145/71 111/55 L O2 Sat by Pulse 100 100 Oximetry (%) 10/19/19 10/19/19 10/19/19 14:59 16:00 17:03 Temperature 97.9 F Pulse Rate 78 77 Respiratory 18 20 23 H Rate Blood Pressure 103/47 L 104/54 L O2 Sat by Pulse 100 Oximetry (%) 10/19/19 10/19/19 10/19/19 18:00 20:00 20:30 Temperature 97.9 F 97.8 F Pulse Rate 74 75 Respiratory 19 17 21 H Rate Blood Pressure 101/48 L 118/53 L O2 Sat by Pulse 100 100 100 Oximetry (%) 10/19/19 10/19/19 10/20/19 20:59 22:00 00:00 Temperature 97.9 F Pulse Rate 76 79 Respiratory 21 H 16 21 H Rate Blood Pressure 137/67 126/62 O2 Sat by Pulse 100 100 100 Oximetry (%) 10/20/19 10/20/19 10/20/19 00:15 02:00 04:00 Temperature 98.1 F Pulse Rate 84 73 Respiratory 20 16 16 Rate Blood Pressure 116/59 L 119/61 O2 Sat by Pulse 100 100 Oximetry (%) 10/20/19 10/20/19 10/20/19 04:15 06:00 07:00 Temperature 98.4 F Pulse Rate 81 90 Respiratory 20 17 28 H Rate Blood Pressure 116/57 L 127/56 L O2 Sat by Pulse 100 100 Oximetry (%) 10/20/19 10/20/19 10/20/19 08:00 08:03 08:51 Temperature Pulse Rate 92 H 85 98 H Respiratory 30 H 19 24 H Rate Blood Pressure 138/70 O2 Sat by Pulse 100 100 Oximetry (%) 10/20/19 10/20/19 10/20/19 08:57 10:00 10:16 Temperature 98.4 F Pulse Rate 71 72 Respiratory 16 25 H Rate Blood Pressure 113/53 L O2 Sat by Pulse 100 100 Oximetry (%) Current Medications Generic Name Dose Route Start Last Admin Trade Name Freq PRN Reason Stop Dose Admin Acetaminophen 650 mg 10/06/19 00:25 10/13/19 17:17 Tylenol - PO 650 mg Q6H PRN Administration FEVER Albuterol Sulfate 2 puff 10/06/19 00:25 Ventolin Hfa Inhaler - IH Q4H PRN SHORT OF BREATH/WHEEZING Apixaban 5 mg 10/06/19 10:00 10/20/19 09:02 Eliquis - PO 5 mg BID [facility] Administration Atorvastatin Calcium 40 mg 10/06/19 22:00 10/19/19 21:36 Lipitor - PO 40 mg HS [facility] Administration Chlorhexidine Gluconate 1 applic 10/06/19 22:00 10/19/19 21:37 Hibiclens For Decolonization - TP 1 applic HS [facility] Administration Propofol 1,000,000 mcg in 100 mls @ 11.97 mls/hr 10/11/19 14:30 10/19/19 15:26 Diprivan - IVPB 10 mcg/kg/min TITR [facility] 3.99 mls/hr Administration Protocol 30 MCG/KG/MIN Piperacillin Sod/Tazobactam 50 mls @ 100 mls/hr 10/12/19 16:15 10/20/19 09:02 Sod 3.375 gm/ Dextrose IVPB 100 mls/hr Q8H-IV [facility] Administration Protocol Norepinephrine Bitartrate 8,000 mcg in 500 mls @ 18.75 mls/hr 10/18/19 21:15 10/20/19 10:18 Levophed Bag IVPB 8 mcg/min TITR [facility] 30 mls/hr Administration Protocol 5 MCG/MIN Sodium Chloride 1,000 mls @ 75 mls/hr 10/19/19 12:30 10/19/19 15:25 Normal Saline - IV 75 mls/hr ASDIR [facility] Administration Insulin Aspart 1 vial 10/15/19 11:15 10/20/19 06:20 Novolog Vial Sliding Scale - SQ 8 units TIDAC [facility] Administration Protocol Insulin Detemir 15 units 10/17/19 10:24 10/19/19 21:42 Levemir Vial SQ 15 units HS [facility] Administration Methylprednisolone Sodium Succinate 30 mg 10/13/19 22:00 10/20/19 09:02 Solu-Medrol - IVPUSH 30 mg BID [facility] Administration Metoprolol Tartrate 5 mg 10/12/19 21:13 10/17/19 09:25 Lopressor Injection - IVPUSH 5 mg Q4H PRN Administration TACHYCARDIA Mirtazapine 15 mg 10/06/19 22:00 10/19/19 21:36 Remeron - PO 15 mg HS [facility] Administration Pantoprazole Sodium 40 mg 10/06/19 11:15 10/20/19 09:02 Protonix Iv IVPUSH 40 mg DAILY [facility] Administration Sotalol HCl 80 mg 10/10/19 22:30 10/20/19 09:02 Betapace - PO 80 mg BID [facility] Administration Vancomycin HCl 125 mg 10/20/19 00:00 10/20/19 06:20 Vancomycin Oral Solution PO 125 mg Q6HPO [facility] Administration Laboratory Results - last 24 hr 10/19/19 10/19/19 10/19/19 05:17 11:40 17:04 WBC RBC Hgb Hct MCV MCH MCHC RDW Plt Count MPV Absolute Neuts (auto) Neutrophils % Neutrophils % (Manual) 89.6 H Band Neutrophils % 7.3 Lymphocytes % Lymphocytes % (Manual) 1.0 L D Monocytes % Monocytes % (Manual) 0 L D Eosinophils % Eosinophils % (Manual) 0.0 Basophils % Basophils % (Manual) 0.0 Myelocytes % (Man) 2 D Promyelocytes % (Man) 0 Blast Cells % (Manual) 0 Nucleated RBC % 0 Metamyelocytes 0 Hypochromia 0 Platelet Estimate Normal Polychromasia 1+ Poikilocytosis 0 Anisocytosis 1+ Microcytosis 1+ Macrocytosis 0 PT with INR INR PTT (Actin FS) Anticoagulation Therapy Puncture Site Patient Temperature ABG pH ABG pCO2 ABG pO2 ABG HCO3 ABG O2 Sat (Measured) ABG O2 Content ABG Base Excess Polo Test Patient On Oxygen O2 Delivery Device Oxygen Flow Rate Vent Mode Vent Rate Mechanical Rate PEEP Pressure Support Vent Sodium Potassium Chloride Carbon Dioxide Anion Gap BUN Creatinine Est GFR (CKD-EPI)AfAm Est GFR (CKD-EPI)NonAf POC Glucometer 303 253 Random Glucose Calcium Phosphorus Magnesium Total Bilirubin AST ALT Alkaline Phosphatase Total Protein Albumin Random Vancomycin 10/20/19 10/20/19 10/20/19 05:15 05:25 05:25 WBC RBC Hgb Hct MCV MCH MCHC RDW Plt Count MPV Absolute Neuts (auto) Neutrophils % Neutrophils % (Manual) Band Neutrophils % Lymphocytes % Lymphocytes % (Manual) Monocytes % Monocytes % (Manual) Eosinophils % Eosinophils % (Manual) Basophils % Basophils % (Manual) Myelocytes % (Man) Promyelocytes % (Man) Blast Cells % (Manual) Nucleated RBC % Metamyelocytes Hypochromia Platelet Estimate Polychromasia Poikilocytosis Anisocytosis Microcytosis Macrocytosis PT with INR INR PTT (Actin FS) Anticoagulation Therapy No Result Required. Puncture Site Right radial Patient Temperature No Result Required. ABG pH 7.419 ABG pCO2 32.20 L ABG pO2 97.8 ABG HCO3 20.4 L ABG O2 Sat (Measured) 97.6 ABG O2 Content No Result Required. ABG Base Excess -3.7 L Polo Test Positive Patient On Oxygen Yes O2 Delivery Device Vent Oxygen Flow Rate 60% Vent Mode A/c Vent Rate 14 Mechanical Rate No Result Required. PEEP 5.0 Pressure Support Vent 450 Sodium 138 Potassium 3.9 Chloride 106 Carbon Dioxide 24 Anion Gap 8 BUN 45.4 H Creatinine 1.0 Est GFR (CKD-EPI)AfAm 83.77 Est GFR (CKD-EPI)NonAf 72.28 POC Glucometer Random Glucose 313 H Calcium 6.5 L* Phosphorus 2.7 Magnesium 2.1 Total Bilirubin 0.6 AST 27 ALT 27 Alkaline Phosphatase 115 Total Protein 4.5 L Albumin 1.3 L Random Vancomycin 8.6 10/20/19 10/20/19 10/20/19 05:25 05:25 06:15 WBC 24.0 H RBC 2.42 L Hgb 7.1 L Hct 21.9 L MCV 90.5 MCH 29.4 MCHC 32.5 RDW 17.1 H Plt Count 184 MPV 9.4 Absolute Neuts (auto) 23.1 H Neutrophils % 96.5 H Neutrophils % (Manual) 96.0 H Band Neutrophils % 0.0 Lymphocytes % 2.1 L D Lymphocytes % (Manual) 2.0 L D Monocytes % 1.3 L Monocytes % (Manual) 2 L D Eosinophils % 0.0 Eosinophils % (Manual) 0.0 Basophils % 0.1 Basophils % (Manual) 0.0 Myelocytes % (Man) 0 D Promyelocytes % (Man) 0 Blast Cells % (Manual) 0 Nucleated RBC % 0 Metamyelocytes 0 Hypochromia 0 Platelet Estimate Normal Polychromasia 0 Poikilocytosis 0 Anisocytosis 0 Microcytosis 0 Macrocytosis 0 PT with INR 22.90 H INR 1.93 H PTT (Actin FS) 24.5 L Anticoagulation Therapy Puncture Site Patient Temperature ABG pH ABG pCO2 ABG pO2 ABG HCO3 ABG O2 Sat (Measured) ABG O2 Content ABG Base Excess Polo Test Patient On Oxygen O2 Delivery Device Oxygen Flow Rate Vent Mode Vent Rate Mechanical Rate PEEP Pressure Support Vent Sodium Potassium Chloride Carbon Dioxide Anion Gap BUN Creatinine Est GFR (CKD-EPI)AfAm Est GFR (CKD-EPI)NonAf POC Glucometer 325 Random Glucose Calcium Phosphorus Magnesium Total Bilirubin AST ALT Alkaline Phosphatase Total Protein Albumin Random Vancomycin Microbiology 10/19/19 09:10 Sputum Culture - Preliminary Sputum - Endotrachea Suction/Ventilator Lactose Fermenting Neg Bacilli Lactose Fermenting Neg Bacilli#2 10/19/19 15:07 Urine Culture - Preliminary Urine - Urine - Catheterized 10/18/19 21:30 Blood Culture - Preliminary Blood - Peripheral Venous NO GROWTH OBTAINED AFTER 24 HOURS, INCUBATION TO CONTINUE FOR 4 DAYS. 10/18/19 21:30 Blood Culture - Preliminary Blood - Peripheral Venous NO GROWTH OBTAINED AFTER 24 HOURS, INCUBATION TO CONTINUE FOR 4 DAYS. S1 S2 Irregular Lungs decreased breath sounds Abd- soft, NT No edema diarrhea+ A/P acute respiratory failure Fever, pneumonitis CHF decompensation Aflutter leucocytosis suspected COVID -- though tests were negative anemia- s/p PRBC -- ICU management --s/p cardioversion -- rate control -- continue with meds --broad spectrum antibiotics -- prognosis is guarded -- on pressor support -- check cdiff stool -- spoke with ICU attending -- not ready to wean yet patient is DNR Problem List - Problems (1) Acute on chronic diastolic (congestive) heart failure Code(s): I50.33 - ACUTE ON CHRONIC DIASTOLIC (CONGESTIVE) HEART FAILURE (2) Acute respiratory failure with hypoxia Code(s): J96.01 - ACUTE RESPIRATORY FAILURE WITH HYPOXIA (3) Atrial fibrillation Code(s): I48.91 - UNSPECIFIED ATRIAL FIBRILLATION (4) GERD (gastroesophageal reflux disease) Code(s): K21.9 - GASTRO-ESOPHAGEAL REFLUX DISEASE WITHOUT ESOPHAGITIS (5) HTN (hypertension) Code(s): I10 - ESSENTIAL (PRIMARY) HYPERTENSION Qualifiers: Hypertension type: essential hypertension Qualified Code(s): I10 - Essential (primary) hypertension (6) Suspected 2019 novel coronavirus infection Code(s): Z20.828 - CONTACT W AND EXPOSURE TO [facility] VIRAL COMMUNICABLE DISEASES
[2019-10-20] MEDS ORDERED: FENTANYL IVPB 500 MCG/100 ML BAG IVPB ONE (12:20)
--- NOTE | 2019-10-20 12:24 | PN ---
Teaching Attending Note Name of Resident: Rubin Valdes ATTENDING PHYSICIAN STATEMENT I saw and evaluated the patient. I reviewed the resident's note and discussed the case with the resident. I agree with the resident's findings and plan as documented. SUBJECTIVE: Pt seen and examined in the ICU. Remains intubated, sedated on levophed gtt 8mcg. Vented on volume assist control with 50% FiO2, PEEP 8. Pplat 31 OBJECTIVE: Vital Signs Period Temp Pulse Resp BP Sys/Amador Pulse Ox Last 24 Hr 97.8 F-98.4 F 64-98 16-30 97-138/47-70 99-100 Gen: intubated, arousable Heart: RRR Lung: scattered rhonchi Abd: soft, nontender Ext: + edema CBC, BMP 10/20/19 05:25 10/20/19 05:25 Active Medications Acetaminophen (Tylenol -) 650 mg PO Q6H PRN PRN Reason: FEVER Last Admin: 10/13/19 17:17 Dose: 650 mg Documented by: Albuterol Sulfate (Ventolin Hfa Inhaler -) 2 puff IH Q4H PRN PRN Reason: SHORT OF BREATH/WHEEZING Apixaban (Eliquis -) 5 mg PO BID [facility] Last Admin: 10/20/19 09:02 Dose: 5 mg Documented by: Atorvastatin Calcium (Lipitor -) 40 mg PO HS [facility] Last Admin: 10/19/19 21:36 Dose: 40 mg Documented by: Chlorhexidine Gluconate (Hibiclens For Decolonization -) 1 applic TP [facility] Last Admin: 10/19/19 21:37 Dose: 1 applic Documented by: Propofol (Diprivan -) 1,000,000 mcg in 100 mls @ 11.97 mls/hr IVPB TITR [facility]; Protocol Last Admin: 10/20/19 12:25 Dose: 22.56 mcg/kg/min, 9 mls/hr Documented by: Piperacillin Sod/Tazobactam (Sod 3.375 gm/ Dextrose) 50 mls @ 100 mls/hr IVPB Q8H-IV [facility]; Protocol Last Admin: 10/20/19 09:02 Dose: 100 mls/hr Documented by: Norepinephrine Bitartrate (Levophed Bag) 8,000 mcg in 500 mls @ 18.75 mls/hr IVPB TITR [facility]; Protocol Last Admin: 10/20/19 10:18 Dose: 8 mcg/min, 30 mls/hr Documented by: Sodium Chloride (Normal Saline -) 1,000 mls @ 75 mls/hr IV ASDIR [facility] Last Admin: 10/19/19 15:25 Dose: 75 mls/hr Documented by: Insulin Aspart (Novolog Vial Sliding Scale -) 1 vial SQ TIDAC [facility]; Protocol Last Admin: 10/20/19 06:20 Dose: 8 units Documented by: Insulin Detemir (Levemir Vial) 15 units SQ HS [facility] Last Admin: 10/19/19 21:42 Dose: 15 units Documented by: Methylprednisolone Sodium Succinate (Solu-Medrol -) 30 mg IVPUSH BID [facility] Last Admin: 10/20/19 09:02 Dose: 30 mg Documented by: Metoprolol Tartrate (Lopressor Injection -) 5 mg IVPUSH Q4H PRN PRN Reason: TACHYCARDIA Last Admin: 10/17/19 09:25 Dose: 5 mg Documented by: Mirtazapine (Remeron -) 15 mg PO HS [facility] Last Admin: 10/19/19 21:36 Dose: 15 mg Documented by: Pantoprazole Sodium (Protonix Iv) 40 mg IVPUSH DAILY [facility] Last Admin: 10/20/19 09:02 Dose: 40 mg Documented by: Sotalol HCl (Betapace -) 80 mg PO BID [facility] Last Admin: 10/20/19 09:02 Dose: 80 mg Documented by: Vancomycin HCl (Vancomycin Oral Solution) 125 mg PO Q6HPO [facility] Last Admin: 10/20/19 12:18 Dose: 125 mg Documented by: ASSESSMENT AND PLAN: Acute Hypoxic Respiratory Failure Suspected COVID19 Pneumonia ARDS Sepsis Acute Kidney Injury Paroxysmal Atrial Fibrillation CAD s/p CABG Aortic Stenosis s/p AVR HTN Hypercholesterolemia Anemia - f/u stool for C diff - continue antibiotics - titrate pressors to maintain MAP >65 - monitor urine output, creatinine - continue steroids - continue anticoagulation - rate control - titrate FiO2, PEEP to keep SpO2 >90% - monitor Pplat - sedate for vent synchrony - enteral feeds - DVT/GI prophylaxis - continue ICU monitoring critical care time spent in reviewing chart, evaluating patient and formulating plan 35 min
[2019-10-20] MEDS: PROPOFOL 1,000,000 MCG/100 ML VIAL IVPB SCH (12:25)
[2019-10-20] MEDS: FENTANYL IVPB 500 MCG/100 ML BAG IVPB SCH (12:39)
[2019-10-20] MEDS: SODIUM CHLORIDE 1,000 ML IV SCH (13:27)
[2019-10-20 14:51] VITALS: BMI 26.8
--- NOTE | 2019-10-20 19:18 | PN ---
Physical Exam: SUBJECTIVE: Patient seen and examined sedated and intubated. OBJECTIVE: GENERAL: The patient is sedated and intubated. HEAD: Normal with no signs of trauma. ENT: Ears normal, nares patent, pt intubated NECK: Trachea midline. LUNGS: Rhonchi on bilateral lung [place] HEART: Regular rate and rhythm ABDOMEN: Soft, mildly distended , normoactive bowel sounds EXTREMITIES: 2+ pulses, bilateral lower ext edema SKIN: Warm, dry, normal turgor, no rashes or lesions noted Vital Signs Period Temp Pulse Resp BP Sys/Amador Pulse Ox Last 24 Hr 97.8 F-98.4 F 64-98 16-30 97-139/53-73 98-100 Laboratory Results - last 24 hr 10/20/19 10/20/19 10/20/19 05:15 05:25 05:25 WBC RBC Hgb Hct MCV MCH MCHC RDW Plt Count MPV Absolute Neuts (auto) Neutrophils % Neutrophils % (Manual) Band Neutrophils % Lymphocytes % Lymphocytes % (Manual) Monocytes % Monocytes % (Manual) Eosinophils % Eosinophils % (Manual) Basophils % Basophils % (Manual) Myelocytes % (Man) Promyelocytes % (Man) Blast Cells % (Manual) Nucleated RBC % Metamyelocytes Hypochromia Platelet Estimate Polychromasia Poikilocytosis Anisocytosis Microcytosis Macrocytosis PT with INR INR PTT (Actin FS) Anticoagulation Therapy No Result Required. Puncture Site Right radial Patient Temperature No Result Required. ABG pH 7.419 ABG pCO2 32.20 L ABG pO2 97.8 ABG HCO3 20.4 L ABG O2 Sat (Measured) 97.6 ABG O2 Content No Result Required. ABG Base Excess -3.7 L Polo Test Positive Patient On Oxygen Yes O2 Delivery Device Vent Oxygen Flow Rate 60% Vent Mode A/c Vent Rate 14 Mechanical Rate No Result Required. PEEP 5.0 Pressure Support Vent 450 Sodium 138 Potassium 3.9 Chloride 106 Carbon Dioxide 24 Anion Gap 8 BUN 45.4 H Creatinine 1.0 Est GFR (CKD-EPI)AfAm 83.77 Est GFR (CKD-EPI)NonAf 72.28 POC Glucometer Random Glucose 313 H Calcium 6.5 L* Phosphorus 2.7 Magnesium 2.1 Total Bilirubin 0.6 AST 27 ALT 27 Alkaline Phosphatase 115 Total Protein 4.5 L Albumin 1.3 L Random Vancomycin 8.6 10/20/19 10/20/19 10/20/19 05:25 05:25 06:15 WBC 24.0 H RBC 2.42 L Hgb 7.1 L Hct 21.9 L MCV 90.5 MCH 29.4 MCHC 32.5 RDW 17.1 H Plt Count 184 MPV 9.4 Absolute Neuts (auto) 23.1 H Neutrophils % 96.5 H Neutrophils % (Manual) 96.0 H Band Neutrophils % 0.0 Lymphocytes % 2.1 L D Lymphocytes % (Manual) 2.0 L D Monocytes % 1.3 L Monocytes % (Manual) 2 L D Eosinophils % 0.0 Eosinophils % (Manual) 0.0 Basophils % 0.1 Basophils % (Manual) 0.0 Myelocytes % (Man) 0 D Promyelocytes % (Man) 0 Blast Cells % (Manual) 0 Nucleated RBC % 0 Metamyelocytes 0 Hypochromia 0 Platelet Estimate Normal Polychromasia 0 Poikilocytosis 0 Anisocytosis 0 Microcytosis 0 Macrocytosis 0 PT with INR 22.90 H INR 1.93 H PTT (Actin FS) 24.5 L Anticoagulation Therapy Puncture Site Patient Temperature ABG pH ABG pCO2 ABG pO2 ABG HCO3 ABG O2 Sat (Measured) ABG O2 Content ABG Base Excess Polo Test Patient On Oxygen O2 Delivery Device Oxygen Flow Rate Vent Mode Vent Rate Mechanical Rate PEEP Pressure Support Vent Sodium Potassium Chloride Carbon Dioxide Anion Gap BUN Creatinine Est GFR (CKD-EPI)AfAm Est GFR (CKD-EPI)NonAf POC Glucometer 325 Random Glucose Calcium Phosphorus Magnesium Total Bilirubin AST ALT Alkaline Phosphatase Total Protein Albumin Random Vancomycin 10/20/19 10/20/19 12:29 16:52 WBC RBC Hgb Hct MCV MCH MCHC RDW Plt Count MPV Absolute Neuts (auto) Neutrophils % Neutrophils % (Manual) Band Neutrophils % Lymphocytes % Lymphocytes % (Manual) Monocytes % Monocytes % (Manual) Eosinophils % Eosinophils % (Manual) Basophils % Basophils % (Manual) Myelocytes % (Man) Promyelocytes % (Man) Blast Cells % (Manual) Nucleated RBC % Metamyelocytes Hypochromia Platelet Estimate Polychromasia Poikilocytosis Anisocytosis Microcytosis Macrocytosis PT with INR INR PTT (Actin FS) Anticoagulation Therapy Puncture Site Patient Temperature ABG pH ABG pCO2 ABG pO2 ABG HCO3 ABG O2 Sat (Measured) ABG O2 Content ABG Base Excess Polo Test Patient On Oxygen O2 Delivery Device Oxygen Flow Rate Vent Mode Vent Rate Mechanical Rate PEEP Pressure Support Vent Sodium Potassium Chloride Carbon Dioxide Anion Gap BUN Creatinine Est GFR (CKD-EPI)AfAm Est GFR (CKD-EPI)NonAf POC Glucometer 292 303 Random Glucose Calcium Phosphorus Magnesium Total Bilirubin AST ALT Alkaline Phosphatase Total Protein Albumin Random Vancomycin Active Medications Generic Name Dose Route Start Last Admin Trade Name Freq PRN Reason Stop Dose Admin Acetaminophen 650 mg 10/06/19 00:25 10/13/19 17:17 Tylenol - PO 650 mg Q6H PRN Administration FEVER Albuterol Sulfate 2 puff 10/06/19 00:25 Ventolin Hfa Inhaler - IH Q4H PRN SHORT OF BREATH/WHEEZING Apixaban 5 mg 10/06/19 10:00 10/20/19 09:02 Eliquis - PO 5 mg BID MAGI Administration Atorvastatin Calcium 40 mg 10/06/19 22:00 10/19/19 21:36 Lipitor - PO 40 mg HS MAGI Administration Banana Based Medical Food 1 packet 10/20/19 22:00 Banatrol Plus Powder Packet PO TID MAGI Chlorhexidine Gluconate 1 applic 10/06/19 22:00 10/19/19 21:37 Hibiclens For Decolonization - TP 1 applic HS MAGI Administration Propofol 1,000,000 mcg in 100 mls @ 11.97 mls/hr 10/11/19 14:30 10/20/19 12:25 Diprivan - IVPB 22.56 mcg/kg/min TITR MAGI 9 mls/hr Administration Protocol 30 MCG/KG/MIN Piperacillin Sod/Tazobactam 50 mls @ 100 mls/hr 10/12/19 16:15 10/20/19 17:58 Sod 3.375 gm/ Dextrose IVPB 100 mls/hr Q8H-IV MAGI Administration Protocol Norepinephrine Bitartrate 8,000 mcg in 500 mls @ 18.75 mls/hr 10/18/19 21:15 10/20/19 10:18 Levophed Bag IVPB 8 mcg/min TITR MAGI 30 mls/hr Administration Protocol 5 MCG/MIN Sodium Chloride 1,000 mls @ 75 mls/hr 10/19/19 12:30 10/20/19 13:27 Normal Saline - IV 75 mls/hr ASDIR MAGI Administration Fentanyl 500 mcg in 100 mls @ 10 mls/hr 10/20/19 12:45 10/20/19 12:39 Sublimaze Ivpb IVPB 50 mcg/hr TITR MAGI 10 mls/hr Administration Protocol 50 MCG/HR Insulin Aspart 1 vial 10/15/19 11:15 10/20/19 16:53 Novolog Vial Sliding Scale - SQ 8 units TIDAC MAGI Administration Protocol Insulin Detemir 15 units 10/17/19 10:24 10/19/19 21:42 Levemir Vial SQ 15 units HS MAGI Administration Methylprednisolone Sodium Succinate 30 mg 10/13/19 22:00 10/20/19 09:02 Solu-Medrol - IVPUSH 30 mg BID MAGI Administration Metoprolol Tartrate 5 mg 10/12/19 21:13 10/17/19 09:25 Lopressor Injection - IVPUSH 5 mg Q4H PRN Administration TACHYCARDIA Mirtazapine 15 mg 10/06/19 22:00 10/19/19 21:36 Remeron - PO 15 mg HS MAGI Administration Pantoprazole Sodium 40 mg 10/06/19 11:15 10/20/19 09:02 Protonix Iv IVPUSH 40 mg DAILY MAGI Administration Sotalol HCl 80 mg 10/10/19 22:30 10/20/19 09:02 Betapace - PO 80 mg BID MAGI Administration Vancomycin HCl 125 mg 10/20/19 00:00 10/20/19 17:56 Vancomycin Oral Solution PO 125 mg Q6HPO MAGI Administration ASSESSMENT/PLAN: 78 yo male DNR with pmh afib, angina, chf, htn, gi bleed, recent admission for covid, afib, and acs in ICU for acute hypoxic resp failure to possible covid pneumonitis vs ARDS Neuro #Acute Metabolic Encephalopathy -Pt sedated on propofol and fentanyl trying to wean off -Daily weaning trials -Held mirtazapine for depression Cardiovascular #Afib w/ RVR #Hx of CHF #CAD s/p CABG #Aortic Stenosis s/p AVR #HTN/HLD -Pt on levo 10mg weaning off maintain MAP >65 -Eliquis 5mg bid -Continue Sotalol 80 mg PO BID with caution with close monitoring of QTc. Pt QTc was greater than 500 today was given supratherapeutic amount of K to lower QTc -Cont Atorvastatin 40mg QD -Pt periodically on Lopressor 5 mg IVP PRN for rate control; given this AM -may utilize intravenous Cardizem therapy with caution as needed hemodynamics permitting for management of recurrent arrhythmia Pulm #Acute Hypoxic Respiratory Failure 2/2 possible Covid pneumonitis vs. ARDS -s/p intubation on 10/04 -Solumedrol 30 mg IV BID -Titrate FiO2, PEEP to keep SpO2 >90% -ABG today:pH 7.397 -Pt vent settings were rate 14 volume 450, PEEP 5, FiO2 50% Pplat 35 today. If PPlat <20 will start weaning off sedation. -Sedate for vent synchrony ID #Suspected COVID Pneumonia #ARDS -Zosyn 3.375 Q8H (started 10/11) -ID consult appreciated -CXR today (10/18) slight improvement - Pt has WBC of 32.9 and diarrhea with low grade fever concern for Cdif started on PO vanco q6hrs (10/18). - Bcx Sputum cx, urine cx, and cdiff cx taken Renal - Pt renal function elevated. Intake and outake low. - Pt was started back on maintenance fluids 75 cc/hour -Monitor I/O's, Cr and electrolytes Heme #Anemia, w/ hx of GI bleed -Stool occult negative - Hgb at 7.1 will transfuse 1 PRBC to keep Hgb up to 8. Will continue to monitor GI #Abd Distension/Diarrhea #H/o of GI Bleed -Still with diarrhea, no acute bleeding seen -KUB unremarkable -Protonix 40 IV QD Endo #Hyperglycemia -Levemir 15U HS -BGM/ISS Q6H LTD -Smiley 10/04 -Intubation 10/04 -[facility]J 10/13 Prophylaxis - DVT- SCD/ eliquis - GI- protonix Dispo -Cont to monitor in ICU Visit type - Emergency Visit Emergency Visit: Yes ED Registration Date: 09/23/19 Care time: The patient presented to the Emergency Department on the above date and was hospitalized for further evaluation of their emergent condition. - New Patient This patient is new to me today: No - Critical Care Critical Care patient: Yes Total Critical Care Time (in minutes): 36 Critical Care Statement: The care of this patient involved high complexity d ecision making to prevent further life threatening deterioration of the patient's condition and/or to evaluate & treat vital organ system(s) failure or risk of failure. - Medication Review Med list reviewed for High Risk Meds patients 65 and older: Yes ATTENDING PHYSICIAN STATEMENT I saw and evaluated the patient. I reviewed the resident's note and discussed the case with the resident. I agree with the resident's findings and plan as documented. SUBJECTIVE: OBJECTIVE: ASSESSMENT AND PLAN:
[2019-10-20] MEDS: MIRTAZAPINE 15 MG TABLET (FP) PO SCH (21:37)
[2019-10-20] MEDS: ATORVASTATIN CA 40 MG TABLET (FP) PO SCH (21:37)
[2019-10-20] MEDS: BANATROL PLUS POWDER PACKET PO SCH (21:37)
--- NOTE | 2019-10-20 21:49 | PN ---
Progress Note, Physician Chief Complaint: LETHARGIC SEDATED ON VENTILATOR AFEBRILE WBC IMPROVED + LOOSE STOOL C DIFF(-) CXR B/L INFILTRATES SPUTUM LF - Current Medication List Current Medications: Active Medications Acetaminophen (Tylenol -) 650 mg PO Q6H PRN PRN Reason: FEVER Last Admin: 10/13/19 17:17 Dose: 650 mg Documented by: Albuterol Sulfate (Ventolin Hfa Inhaler -) 2 puff IH Q4H PRN PRN Reason: SHORT OF BREATH/WHEEZING Apixaban (Eliquis -) 5 mg PO BID [facility] Last Admin: 10/20/19 21:37 Dose: 5 mg Documented by: Atorvastatin Calcium (Lipitor -) 40 mg PO HS [facility] Last Admin: 10/20/19 21:37 Dose: 40 mg Documented by: Banana Based Medical Food (Banatrol Plus Powder Packet) 1 packet PO TID [facility] Last Admin: 10/20/19 21:37 Dose: 1 packet Documented by: Chlorhexidine Gluconate (Hibiclens For Decolonization -) 1 applic TP HS [facility] Last Admin: 10/19/19 21:37 Dose: 1 applic Documented by: Propofol (Diprivan -) 1,000,000 mcg in 100 mls @ 11.97 mls/hr IVPB TITR MAGI; Protocol Last Admin: 10/20/19 12:25 Dose: 22.56 mcg/kg/min, 9 mls/hr Documented by: Piperacillin Sod/Tazobactam (Sod 3.375 gm/ Dextrose) 50 mls @ 100 mls/hr IVPB Q8H-IV MAGI; Protocol Last Admin: 10/20/19 17:58 Dose: 100 mls/hr Documented by: Norepinephrine Bitartrate (Levophed Bag) 8,000 mcg in 500 mls @ 18.75 mls/hr IVPB TITR MAGI; Protocol Last Admin: 10/20/19 21:24 Dose: Not Given Documented by: Sodium Chloride (Normal Saline -) 1,000 mls @ 75 mls/hr IV ASDIR MAGI Last Admin: 10/20/19 13:27 Dose: 75 mls/hr Documented by: Fentanyl (Sublimaze Ivpb) 500 mcg in 100 mls @ 10 mls/hr IVPB TITR MAGI; Protocol Last Admin: 10/20/19 12:39 Dose: 50 mcg/hr, 10 mls/hr Documented by: Insulin Aspart (Novolog Vial Sliding Scale -) 1 vial SQ TIDAC [facility]; Protocol Last Admin: 10/20/19 16:53 Dose: 8 units Documented by: Insulin Detemir (Levemir Vial) 15 units SQ [facility] Last Admin: 10/19/19 21:42 Dose: 15 units Documented by: Methylprednisolone Sodium Succinate (Solu-Medrol -) 30 mg IVPUSH BID [facility] Last Admin: 10/20/19 21:37 Dose: 30 mg Documented by: Metoprolol Tartrate (Lopressor Injection -) 5 mg IVPUSH Q4H PRN PRN Reason: TACHYCARDIA Last Admin: 10/17/19 09:25 Dose: 5 mg Documented by: Mirtazapine (Remeron -) 15 mg PO [facility] Last Admin: 10/20/19 21:37 Dose: 15 mg Documented by: Pantoprazole Sodium (Protonix Iv) 40 mg IVPUSH DAILY [facility] Last Admin: 10/20/19 09:02 Dose: 40 mg Documented by: Sotalol HCl (Betapace -) 80 mg PO BID [facility] Last Admin: 10/20/19 09:02 Dose: 80 mg Documented by: Vancomycin HCl (Vancomycin Oral Solution) 125 mg PO Q6HPO [facility] Last Admin: 10/20/19 17:56 Dose: 125 mg Documented by: - Objective Vital Signs: Vital Signs Temperature 98.1 F 10/20/19 14:00 Pulse Rate 77 10/20/19 20:00 Respiratory Rate 20 10/20/19 21:00 Blood Pressure 135/63 10/20/19 20:00 O2 Sat by Pulse Oximetry (%) 100 10/20/19 21:00 Constitutional: Yes: No Distress Eyes: Yes: Conjunctiva Clear Cardiovascular: Yes: Regular Rate and Rhythm, S1, S2 Respiratory: Yes: Mechanically Ventilated Gastrointestinal: Yes: Normal Bowel Sounds, Soft Edema: Yes Labs: CBC, BMP 10/20/19 05:25 10/20/19 05:25 INR, PTT INR 1.93 (0.83-1.09) H 10/20/19 05:25 Fibrinogen > 500.0 mg/dL (238-498) H 10/08/19 06:30 Assessment/Plan BILATERAL INFILTRATES ? PNEUMONITIS ? CHF RESP FAILURE S/P TAVR COVID -19 (-) X5 CONTINUE EMPIRIC ZOSYN PO VANCOMYCIN VENTILATORY SUPPORT
[2019-10-20] MEDS: INSULIN (LEVEMIR) 100 UNITS/ML UNITS SQ SCH (22:42)
[2019-10-20] MEDS: CHLORHEXIDINE GLUCONATE 4% CLEANSER FOR DECOLONIZATION TP SCH (22:43)
[2019-10-21] MEDS ORDERED: PIPERACILLIN/TAZOBACTAM 3.375 GM VIAL IVPB ONE ×3 (02:04→16:43)
[2019-10-21] MEDS ORDERED: DEXTROSE 5%-WATER - 50 ML IVPB ONE ×3 (02:04→16:43)
[2019-10-21] MEDS: PIPERACILLIN/TAZOB 3.375 GM 3.375 GM in DEXTROSE 5%-WATER - 50 ML IVPB SCH ×3 (02:06→17:06)
[2019-10-21 02:20] LABS: HEMATOCRIT 26.9 % (35.4-49); HEMOGLOBIN 8.7 GM/dL (11.7-16.9); MCHC 32.3 g/dl (32.0-35.9); MEAN CELL VOLUME 92.7 fl (80-96); MEAN PLT VOLUME 9.5 fl (7.5-11.1); PLATELET COUNT 154 K/MM3 (134-434); RDW 15.9 % (11.9-15.9); WHITE BLOOD COUNT 17.1 K/mm3 (4.0-10.0)
[2019-10-21 06:02] LABS: ARTERIAL BLD GAS O2 SATURATION 95.9 mmHg (95-98); ARTERIAL BLOOD GAS BASE EXCESS -3.6 mmol/L (-2-2); ARTERIAL BLOOD GAS PO2 84.2 mmHg (80-100); ARTERIAL BLOOD GAS pH 7.348 (7.350-7.450)
[2019-10-21] MEDS: INSULIN SLIDING SCALE (NOVOLOG) 1 VIAL SQ SCH ×3 (06:19→17:07)
[2019-10-21] MEDS: BANATROL PLUS POWDER PACKET PO SCH ×3 (06:20→21:35)
[2019-10-21] MEDS: VANCOMYCIN 250 MG/5 ML ORAL SOLUTION PO SCH ×2 (06:20)
[2019-10-21 06:27] LABS: ALLENS TEST POSITIVE
[2019-10-21 06:28] LABS: VENT MODE A/C
[2019-10-21 06:29] LABS: VENT RATE 14
[2019-10-21 07:23] LABS: BASO % 0.1 % (0-2.0); HEMATOCRIT 27.2 % (35.4-49); HEMOGLOBIN 8.8 GM/dL (11.7-16.9); LYMPH % 2.5 % (8-40); MCH 29.5 pg (25.7-33.7); MCHC 32.3 g/dl (32.0-35.9); MEAN CELL VOLUME 91.4 fl (80-96); MEAN PLT VOLUME 9.4 fl (7.5-11.1); MONO % 1.9 % (3.8-10.2); NEUT % 95.5 % (42.8-82.8); PLATELET COUNT 168 K/MM3 (134-434); RBC 2.97 M/mm3 (4.00-5.60); RDW 15.9 % (11.9-15.9); WHITE BLOOD COUNT 17.1 K/mm3 (4.0-10.0)
[2019-10-21 07:40] LABS: INR 1.52 (0.83-1.09)
[2019-10-21 08:24] LABS: POTASSIUM 3.8 mmol/L (3.5-5.1)
[2019-10-21 08:37] LABS: ALBUMIN 1.4 g/dl (3.4-5.0); BILIRUBIN,TOTAL 0.6 mg/dL (0.2-1); CREATININE 0.7 mg/dL (0.55-1.3); MAGNESIUM 2.2 mg/dL (1.8-2.4); PHOSPHOROUS 2.2 mg/dL (2.5-4.9); TOT PROT 4.7 g/dl (6.4-8.2)
[2019-10-21 08:53] LABS: CALCIUM 6.9 mg/dL (8.5-10.1)
[2019-10-21] MEDS ORDERED: PT OWN MED DRAWER 7, Y5N ONE ×3 (09:00→21:36)
--- NOTE | 2019-10-21 09:16 | PN ---
Progress Note, Physician History of Present Illness: Sedated and intubated on levophed gtt 4 mcg. Vented on volume assist control with 50% FiO2, PEEP 5. Remains in NSR post DCCV. Transfused 1 u pRBC overnight. - Current Medication List Current Medications: Active Medications Acetaminophen (Tylenol -) 650 mg PO Q6H PRN PRN Reason: FEVER Last Admin: 10/13/19 17:17 Dose: 650 mg Documented by: Albuterol Sulfate (Ventolin Hfa Inhaler -) 2 puff IH Q4H PRN PRN Reason: SHORT OF BREATH/WHEEZING Apixaban (Eliquis -) 5 mg PO BID [facility] Last Admin: 10/20/19 21:37 Dose: 5 mg Documented by: Atorvastatin Calcium (Lipitor -) 40 mg PO [facility] Last Admin: 10/20/19 21:37 Dose: 40 mg Documented by: Banana Based Medical Food (Banatrol Plus Powder Packet) 1 packet PO TID [facility] Last Admin: 10/21/19 06:20 Dose: 1 packet Documented by: Chlorhexidine Gluconate (Hibiclens For Decolonization -) 1 applic TP [facility] Last Admin: 10/20/19 22:43 Dose: 1 applic Documented by: Propofol (Diprivan -) 1,000,000 mcg in 100 mls @ 11.97 mls/hr IVPB TITR [facility]; Protocol Last Titration: 10/20/19 19:00 Dose: 22.56 mcg/kg/min, 9 mls/hr Documented by: Piperacillin Sod/Tazobactam (Sod 3.375 gm/ Dextrose) 50 mls @ 100 mls/hr IVPB Q8H-IV MAGI; Protocol Last Admin: 10/21/19 02:06 Dose: 100 mls/hr Documented by: Norepinephrine Bitartrate (Levophed Bag) 8,000 mcg in 500 mls @ 18.75 mls/hr IVPB TITR [facility]; Protocol Last Titration: 10/21/19 00:00 Dose: 6 mcg/min, 22.5 mls/hr Documented by: Sodium Chloride (Normal Saline -) 1,000 mls @ 75 mls/hr IV ASDIR MAGI Last Admin: 10/20/19 13:27 Dose: 75 mls/hr Documented by: Fentanyl (Sublimaze Ivpb) 500 mcg in 100 mls @ 10 mls/hr IVPB TITR [facility]; Protoco l Last Admin: 10/21/19 00:00 Dose: 50 mcg/hr, 10 mls/hr Documented by: Insulin Aspart (Novolog Vial Sliding Scale -) 1 vial SQ TIDAC [facility]; Protocol Last Admin: 10/21/19 06:19 Dose: 4 units Documented by: Insulin Detemir (Levemir Vial) 15 units SQ [facility] Last Admin: 10/20/19 22:42 Dose: 15 units Documented by: Methylprednisolone Sodium Succinate (Solu-Medrol -) 30 mg IVPUSH BID [facility] Last Admin: 10/20/19 21:37 Dose: 30 mg Documented by: Metoprolol Tartrate (Lopressor Injection -) 5 mg IVPUSH Q4H PRN PRN Reason: TACHYCARDIA Last Admin: 10/17/19 09:25 Dose: 5 mg Documented by: Mirtazapine (Remeron -) 15 mg PO HS [facility] Last Admin: 10/20/19 21:37 Dose: 15 mg Documented by: Pantoprazole Sodium (Protonix Iv) 40 mg IVPUSH DAILY [facility] Last Admin: 10/20/19 09:02 Dose: 40 mg Documented by: Sotalol HCl (Betapace -) 80 mg PO BID [facility] Last Admin: 10/20/19 22:43 Dose: 80 mg Documented by: Vancomycin HCl (Vancomycin Oral Solution) 125 mg PO Q6HPO [facility] Last Admin: 10/21/19 06:20 Dose: 125 mg Documented by: - Objective Vital Signs: Vital Signs Temperature 99.1 F 10/21/19 06:00 Pulse Rate 76 10/21/19 06:00 Respiratory Rate 15 10/21/19 06:00 Blood Pressure 122/63 10/21/19 06:00 O2 Sat by Pulse Oximetry (%) 99 10/21/19 06:00 Constitutional: Yes: Other (Sedated and intubated) Cardiovascular: Yes: Regular Rate and Rhythm Respiratory: Yes: Intubated, Mechanically Ventilated, Rhonchi Gastrointestinal: Yes: Soft, Hypoactive Bowel Sounds Genitourinary: Yes: Smiley Present Edema: No Labs: CBC, BMP 10/21/19 05:40 10/21/19 05:40 INR, PTT INR 1.52 (0.83-1.09) H 10/21/19 05:40 Fibrinogen > 500.0 mg/dL (238-498) H 10/08/19 06:30 - ....Imaging Chest X-ray: Report Reviewed (Diffuse bilateral infiltrates stable) EKG: Report Reviewed (Tele: NSR) Problem List - Problems (1) Acute on chronic diastolic (congestive) heart failure Code(s): I50.33 - ACUTE ON CHRONIC DIASTOLIC (CONGESTIVE) HEART FAILURE (2) Acute respiratory failure with hypoxia Code(s): J96.01 - ACUTE RESPIRATORY FAILURE WITH HYPOXIA (3) Aortic valve stenosis Code(s): I35.0 - NONRHEUMATIC AORTIC (VALVE) STENOSIS Qualifiers: Cardiac valve disease etiology: nonrheumatic Qualified Code(s): I35.0 - Nonrheumatic aortic (valve) stenosis (4) Atrial flutter Code(s): I48.92 - UNSPECIFIED ATRIAL FLUTTER Qualifiers: Atrial flutter type: typical Qualified Code(s): I48.3 - Typical atrial flutter (5) CAD (coronary artery disease) Code(s): I25.10 - ATHSCL HEART DISEASE OF [place] CORONARY ARTERY W/O ANG PCTRS Qualifiers: Coronary Disease-Associated Artery/Lesion type: [place] artery [place] vs. transplanted heart: [place] heart Associated angina: without angina Qualified Code(s): I25.10 - Atherosclerotic heart disease of [place] coronary artery without angina pectoris (6) HTN (hypertension) Code(s): I10 - ESSENTIAL (PRIMARY) HYPERTENSION Qualifiers: Hypertension type: essential hypertension Qualified Code(s): I10 - Essential (primary) hypertension (7) Hx of CABG Code(s): Z95.1 - PRESENCE OF AORTOCORONARY BYPASS GRAFT (8) Hypercholesterolemia Code(s): E78.00 - PURE HYPERCHOLESTEROLEMIA, UNSPECIFIED (9) S/P AVR (aortic valve replacement) Code(s): Z95.2 - PRESENCE OF PROSTHETIC HEART VALVE (10) S/P left atrial appendage ligation Code(s): Z98.890 - OTHER SPECIFIED POSTPROCEDURAL STATES (11) Suspected COVID-19 virus infection Code(s): Z20.828 - CONTACT W AND EXPOSURE TO [facility] VIRAL COMMUNICABLE DISEASES Assessment/Plan Echo 09/03/2019 Post-op septal motion, normal LVEF 50-55%, mod cLVH, normal RV size and fxn, mild LAE, mild MR, TR, bioAVR, mild AR, restrictive physiology Echocardiography October 12, 2018 revealed mild degree of concentric left ventricular hypertrophy with normal left ventricular systolic function and estimated LVEF between 65-70%, mild left atrial dilatation, normal right ventricular size and systolic function, aortic valve bioprosthesis with no ao rtic valve insufficiency, moderately dilated ascending aorta, mild thickening of the mitral valve leaflets with mild mitral valve regurgitation, mild to moderate tricuspid valve regurgitation with calculated RVSP of [address]: Small-moderate right and very small left effusion, pulm edema TAA 3.9 cm 1. Clinical presentation is consistent with acute hypoxic respiratory failure r elated to bronchopneumonia with sepsis syndrome, coronavirus/COVID 19- persistent residual infiltrates 2. Diastolic left ventricular dysfunction with chronic class I-II NYHA classification left ventricular failure 3. Paroxysmal atrial flutter [id number] score of 5 post cardioversion on DOAC's/Eliquis 4. CAD post CABG with evidence of demand ischemia related to the above-noted clinical presentation angina pectoris 5. Aortic valve stenosis post SAVR/bio-prosthesis- with LA appendage ligation 6. Hypertensive cardiovascular disease, intermittent hypotension related to the above-noted sepsis syndrome 7. Hyperglycemia- diabetes mellitus 8. Hypercholesterolemia 9. History of altered mental status etiology of which was unclear- prior history of clinical depression 10. GURU resolved 11. Anemia post-transfusion PLAN: 1. Wean Levophed for MAP>65 mmHg 2. Continue Sotalol 80 bid with caution and close monitoring of QTc interval, IV Lopressor as needed for rate-control 3. Continue Atorvastatin 40 qd 4. Continue DOAC's/Eliquis 5 bid with caution and close monitoring of hemoglobin level, maintaining hemoglobin level equal or greater than 8.0 5. Withhold Lasix therapy in view of the above-noted prerenal azotemia 6. Antibiotics as per the primary team, IV steroid taper, vent wean as tolerated, enteral feeds, c. diff negative Overall poor prognosis
[2019-10-21] MEDS: methylPREDNISolone NA SUCC 40 MG/1 ML VIAL IVPUSH SCH ×2 (09:32→21:39)
[2019-10-21] MEDS: PANTOPRAZOLE SODIUM 40 MG VIAL IVPUSH SCH (09:32)
[2019-10-21] MEDS: SOTALOL HCL 80 MG TABLET (FP) PO SCH ×2 (09:32→22:30)
[2019-10-21] MEDS: APIXABAN 5 MG TABLET PO SCH ×2 (09:33→21:37)
[2019-10-21] MEDS: FENTANYL IVPB 500 MCG/100 ML BAG IVPB SCH ×3 (09:33→21:35)
[2019-10-21 10:44] LABS: ANISOCYTOSIS 0; MACROCYTOSIS 0; PLATELET ESTIMATE NORMAL
--- NOTE | 2019-10-21 12:29 | PN ---
Progress Note (short form) - Note Progress Note: Palliative care f/up remains intubated on 50 % Fio2 DNR on pressors- clinically deteriorated BILATERAL INFILTRATES- ? PNEUMONITIS ? CHF LOOSE STOOL, ELEVATED WBC - neg C DIFFICILE Acute Hypoxic Respiratory Failure Suspected COVID19 Pneumonia ARDS Sepsis Acute Kidney Injury Paroxysmal Atrial Fibrillation CAD s/p CABG Aortic Stenosis s/p AVR HTN Hypercholesterolemia Anemia 78yo male with h/o HTN, hyperlipidemia, atrial fibrillation, LV diastolic dysfunction, CAD s/p CABG, angina, s/p bioprosthetic AVR with resection of LA appendage, hx of GI bleed with multiple recent admissions ( 08/31- 09/12, 09/19-09/21, 09/22- current) for hypoxia and suspected COVID19 ( tested negative multiple times) , o2 dependent. + depression/ anxiety, worsening debility Family is aware of his guarded prognosis given underlying comorbidities. He is DNR. They are hoping and praying for a miracle- that he can come off the ventilator and be able to go home. I have discussed possibility of trach/ PEG and Shreyas says his father would not have wanted that but they are not sure about senior care prognosis and his chances of recovery. Family's desire that Osito is able to breathe on his own and able to come home appear to be unrealistic given that he was in STR before this hospitalization and will probably need prolonged rehabilitation even in the best case scenario of being able to come off the ventilator. We discussed withdrawal of care including discontinuing a/bs, pressors, compassionate extubation. We discussed what Osito's wishes would have been in this current situation given how unhappy he was when he was o2 dependent last month. Family are still hoping and praying for a miracle. They would not want Osito to be hooked onto tubes for a prolonged period of time. They do not want to opt for trach/ PEG as per my conversations with Shreyas. Emotional support was pr ovided. They are aware that all supportive measures will continue for now but if family decides for withdrawal of care and comfort measures Osito will be kept comfortable. Obie Cruz MD [phone] Problem List - Problems (1) Acute on chronic diastolic (congestive) heart failure Code(s): I50.33 - ACUTE ON CHRONIC DIASTOLIC (CONGESTIVE) HEART FAILURE (2) Acute respiratory failure with hypoxia Code(s): J96.01 - ACUTE RESPIRATORY FAILURE WITH HYPOXIA (3) Atrial flutter Code(s): I48.92 - UNSPECIFIED ATRIAL FLUTTER Qualifiers: Atrial flutter type: typical Qualified Code(s): I48.3 - Typical atrial flutter (4) Depression Code(s): F32.9 - MAJOR DEPRESSIVE DISORDER, SINGLE EPISODE, UNSPECIFIED Qualifiers: Depression Type: other depression Qualified Code(s): F32.89 - Other specified depressive episodes (5) Failure to thrive in adult Code(s): R62.7 - ADULT FAILURE TO THRIVE (6) S/P AVR (aortic valve replacement) Code(s): Z95.2 - PRESENCE OF PROSTHETIC HEART VALVE (7) S/P left atrial appendage ligation Code(s): Z98.890 - OTHER SPECIFIED POSTPROCEDURAL STATES (8) Suspected COVID-19 virus infection Code(s): Z20.828 - CONTACT W AND EXPOSURE TO [facility] VIRAL COMMUNICABLE DISEASES
--- NOTE | 2019-10-21 12:50 | PN ---
Teaching Attending Note Name of Resident: Rubin Valdes ATTENDING PHYSICIAN STATEMENT I saw and evaluated the patient. I reviewed the resident's note and discussed the case with the resident. I agree with the resident's findings and plan as documented. SUBJECTIVE: Pt seen and examined in the ICU. Remains intubated, sedated on levophed gtt 4mcg. Vented on volume assist control with 50% FiO2, PEEP 5. Pplat 26. OBJECTIVE: Vital Signs Period Temp Pulse Resp BP Sys/Amador Pulse Ox Last 24 Hr 98.1 F-99.1 F 68-87 15-24 97-139/56-73 98-100 Intake & Output 10/18/19 10/19/19 10/20/19 10/21/19 23:59 23:59 23:59 23:59 Intake Total 580 5945.8 4507.8 1996.9 Output Total 2150 2650 2000 800 Balance -1570 3295.8 2507.8 1196.9 Weight 72.802 kg 74.743 kg 75.3 kg 71.1 kg Gen: intubated, sedated Heart: RRR Lung: scattered rhonchi Abd: soft, nontender Ext: + edema CBC, BMP 10/21/19 05:40 10/21/19 05:40 Active Medications Acetaminophen (Tylenol -) 650 mg PO Q6H PRN PRN Reason: FEVER Last Admin: 10/13/19 17:17 Dose: 650 mg Documented by: Albuterol Sulfate (Ventolin Hfa Inhaler -) 2 puff IH Q4H PRN PRN Reason: SHORT OF BREATH/WHEEZING Apixaban (Eliquis -) 5 mg PO BID [facility] Last Admin: 10/21/19 09:33 Dose: 5 mg Documented by: Atorvastatin Calcium (Lipitor -) 40 mg PO [facility] Last Admin: 10/20/19 21:37 Dose: 40 mg Documented by: Banana Based Medical Food (Banatrol Plus Powder Packet) 1 packet PO TID [facility] Last Admin: 10/21/19 06:20 Dose: 1 packet Documented by: Chlorhexidine Gluconate (Hibiclens For Decolonization -) 1 applic TP [facility] Last Admin: 10/20/19 22:43 Dose: 1 applic Documented by: Propofol (Diprivan -) 1,000,000 mcg in 100 mls @ 11.97 mls/hr IVPB TITR [facility]; Protocol Last Titration: 10/20/19 19:00 Dose: 22.56 mcg/kg/min, 9 mls/hr Documented by: Piperacillin Sod/Tazobactam (Sod 3.375 gm/ Dextrose) 50 mls @ 100 mls/hr IVPB Q8H-IV [facility]; Protocol Last Admin: 10/21/19 09:31 Dose: 100 mls/hr Documented by: Norepinephrine Bitartrate (Levophed Bag) 8,000 mcg in 500 mls @ 18.75 mls/hr IVPB TITR [facility]; Protocol Last Titration: 10/21/19 09:34 Dose: 4 mcg/min, 15 mls/hr Documented by: Sodium Chloride (Normal Saline -) 1,000 mls @ 75 mls/hr IV ASDIR [facility] Last Admin: 10/20/19 13:27 Dose: 75 mls/hr Documented by: Fentanyl (Sublimaze Ivpb) 500 mcg in 100 mls @ 10 mls/hr IVPB TITR [facility]; Protocol Last Admin: 10/21/19 09:33 Dose: 50 mcg/hr, 10 mls/hr Documented by: Insulin Aspart (Novolog Vial Sliding Scale -) 1 vial SQ TIDAC [facility]; Protocol Last Admin: 10/21/19 11:40 Dose: 6 units Documented by: Insulin Detemir (Levemir Vial) 15 units SQ [facility] Last Admin: 10/20/19 22:42 Dose: 15 units Documented by: Methylprednisolone Sodium Succinate (Solu-Medrol -) 30 mg IVPUSH BID [facility] Last Admin: 10/21/19 09:32 Dose: 30 mg Documented by: Metoprolol Tartrate (Lopressor Injection -) 5 mg IVPUSH Q4H PRN PRN Reason: TACHYCARDIA Last Admin: 10/17/19 09:25 Dose: 5 mg Documented by: Mirtazapine (Remeron -) 15 mg PO HS [facility] Last Admin: 10/20/19 21:37 Dose: 15 mg Documented by: Pantoprazole Sodium (Protonix Iv) 40 mg IVPUSH DAILY [facility] Last Admin: 10/21/19 09:32 Dose: 40 mg Documented by: Sotalol HCl (Betapace -) 80 mg PO BID [facility] Last Admin: 10/21/19 09:32 Dose: 80 mg Documented by: ASSESSMENT AND PLAN: Acute Hypoxic Respiratory Failure Suspected COVID19 Pneumonia ARDS Sepsis Acute Kidney Injury Paroxysmal Atrial Fibrillation CAD s/p CABG Aortic Stenosis s/p AVR HTN Hypercholesterolemia Anemia - continue antibiotics - titrate pressors to maintain MAP >65 - monitor urine output, creatinine - continue steroids - continue anticoagulation - rate control - titrate FiO2, PEEP to keep SpO2 >90% - monitor Pplat - sedate for vent synchrony - enteral feeds - DVT/GI prophylaxis - continue ICU monitoring critical care time spent in reviewing chart, evaluating patient and formulating plan 35 min
[2019-10-21] MEDS: PROPOFOL 1,000,000 MCG/100 ML VIAL IVPB SCH ×3 (12:52→21:34)
--- NOTE | 2019-10-21 13:33 | PN ---
Progress Note (short form) - Note Progress Note: remains intubated on pressors awake today keeps shaking his head "no" responding to simple commands Vital Signs - 24 hr 10/20/19 10/20/19 10/20/19 20:00 21:00 22:00 Temperature 98.9 F Pulse Rate 77 83 Respiratory 22 H 20 17 Rate Blood Pressure 135/63 127/63 O2 Sat by Pulse 100 100 100 Oximetry (%) 10/21/19 10/21/19 10/21/19 00:00 00:31 02:00 Temperature 98.7 F Pulse Rate 84 87 Respiratory 23 H 24 H 24 H Rate Blood Pressure 126/56 L 139/64 O2 Sat by Pulse 100 100 Oximetry (%) 10/21/19 10/21/19 10/21/19 04:00 04:27 06:00 Temperature 99.1 F Pulse Rate 84 76 Respiratory 20 22 H 15 Rate Blood Pressure 127/58 L 122/63 O2 Sat by Pulse 99 99 Oximetry (%) 10/21/19 10/21/19 10/21/19 08:00 08:15 10:00 Temperature 98.9 F Pulse Rate 74 73 Respiratory 15 17 21 H Rate Blood Pressure 114/59 L 121/64 O2 Sat by Pulse 100 99 Oximetry (%) 10/21/19 10/21/19 10/21/19 12:00 12:15 14:00 Temperature 98.1 F Pulse Rate 65 66 Respiratory 18 19 18 Rate Blood Pressure 111/59 L 113/54 L O2 Sat by Pulse 93 L 98 96 Oximetry (%) 10/21/19 10/21/19 16:00 16:15 Temperature 98.1 F Pulse Rate 62 Respiratory 18 19 Rate Blood Pressure 100/48 L O2 Sat by Pulse 98 Oximetry (%) Current Medications Generic Name Dose Route Start Last Admin Trade Name Freq PRN Reason Stop Dose Admin Acetaminophen 650 mg 10/06/19 00:25 10/13/19 17:17 Tylenol - PO 650 mg Q6H PRN Administration FEVER Albuterol Sulfate 2 puff 10/06/19 00:25 Ventolin Hfa Inhaler - IH Q4H PRN SHORT OF BREATH/WHEEZING Apixaban 5 mg 10/06/19 10:00 10/21/19 09:33 Eliquis - PO 5 mg BID [facility] Administration Atorvastatin Calcium 40 mg 10/06/19 22:00 10/20/19 21:37 Lipitor - PO 40 mg HS [facility] Administration Banana Based Medical Food 1 packet 10/20/19 22:00 10/21/19 14:39 Banatrol Plus Powder Packet PO 1 packet TID [facility] Administration Chlorhexidine Gluconate 1 applic 10/06/19 22:00 10/20/19 22:43 Hibiclens For Decolonization - TP 1 applic HS [facility] Administration Propofol 1,000,000 mcg in 100 mls @ 11.97 mls/hr 10/11/19 14:30 10/21/19 17:08 Diprivan - IVPB 35.09 mcg/kg/min TITR [facility] 14 mls/hr Administration Protocol 30 MCG/KG/MIN Piperacillin Sod/Tazobactam 50 mls @ 100 mls/hr 10/12/19 16:15 10/21/19 17:06 Sod 3.375 gm/ Dextrose IVPB 100 mls/hr Q8H-IV [facility] Administration Protocol Norepinephrine Bitartrate 8,000 mcg in 500 mls @ 18.75 mls/hr 10/18/19 21:15 10/21/19 09:34 Levophed Bag IVPB 4 mcg/min TITR [facility] 15 mls/hr Titration Protocol 5 MCG/MIN Sodium Chloride 1,000 mls @ 75 mls/hr 10/19/19 12:30 10/21/19 17:05 Normal Saline - IV Not Given ASDIR [facility] Fentanyl 500 mcg in 100 mls @ 10 mls/hr 10/20/19 12:45 10/21/19 09:33 Sublimaze Ivpb IVPB 50 mcg/hr TITR [facility] 10 mls/hr Administration Protocol 50 MCG/HR Insulin Aspart 1 vial 10/15/19 11:15 10/21/19 17:07 Novolog Vial Sliding Scale - SQ 4 units TIDAC [facility] Administration Protocol Insulin Detemir 15 units 10/17/19 10:24 10/20/19 22:42 Levemir Vial SQ 15 units HS [facility] Administration Methylprednisolone Sodium Succinate 30 mg 10/13/19 22:00 10/21/19 09:32 Solu-Medrol - IVPUSH 30 mg BID [facility] Administration Metoprolol Tartrate 5 mg 10/12/19 21:13 10/17/19 09:25 Lopressor Injection - IVPUSH 5 mg Q4H PRN Administration TACHYCARDIA Mirtazapine 15 mg 10/06/19 22:00 10/20/19 21:37 Remeron - PO 15 mg HS [facility] Administration Pantoprazole Sodium 40 mg 10/06/19 11:15 10/21/19 09:32 Protonix Iv IVPUSH 40 mg DAILY [facility] Administration Sotalol HCl 80 mg 10/10/19 22:30 10/21/19 09:32 Betapace - PO 80 mg BID [facility] Administration Laboratory Results - last 24 hr 10/20/19 10/21/19 10/21/19 19:40 01:30 01:30 WBC 17.1 H RBC 2.90 L Hgb 8.7 L Hct 26.9 L D MCV 92.7 MCH 30.0 MCHC 32.3 RDW 15.9 Plt Count 154 MPV 9.5 Absolute Neuts (auto) Neutrophils % Neutrophils % (Manual) Band Neutrophils % Lymphocytes % Lymphocytes % (Manual) Monocytes % Monocytes % (Manual) Eosinophils % Eosinophils % (Manual) Basophils % Basophils % (Manual) Myelocytes % (Man) Promyelocytes % (Man) Blast Cells % (Manual) Nucleated RBC % Metamyelocytes Hypochromia Platelet Estimate Polychromasia Poikilocytosis Anisocytosis Microcytosis Macrocytosis PT with INR INR PTT (Actin FS) Anticoagulation Therapy Puncture Site Patient Temperature ABG pH ABG pCO2 ABG pO2 ABG HCO3 ABG O2 Sat (Measured) ABG O2 Content ABG Base Excess Polo Test Patient On Oxygen O2 Delivery Device Oxygen Flow Rate Vent Mode Vent Rate Mechanical Rate PEEP Pressure Support Vent Sodium Potassium Chloride Carbon Dioxide Anion Gap BUN Creatinine Est GFR (CKD-EPI)AfAm Est GFR (CKD-EPI)NonAf POC Glucometer Random Glucose Calcium Phosphorus Magnesium Total Bilirubin AST ALT Alkaline Phosphatase Total Protein Albumin Vancomycin Pre-Dose 5.8 Blood Type O POSITIVE Antibody Screen Negative Crossmatch See Detail 10/21/19 10/21/19 10/21/19 05:17 05:40 05:40 WBC 17.1 H RBC 2.97 L Hgb 8.8 L Hct 27.2 L MCV 91.4 MCH 29.5 MCHC 32.3 RDW 15.9 Plt Count 168 MPV 9.4 Absolute Neuts (auto) 16.4 H Neutrophils % 95.5 H Neutrophils % (Manual) 96.0 H Band Neutrophils % 0.0 Lymphocytes % 2.5 L Lymphocytes % (Manual) 3.0 L D Monocytes % 1.9 L Monocytes % (Manual) 1 L Eosinophils % 0.0 Eosinophils % (Manual) 0.0 Basophils % 0.1 Basophils % (Manual) 0.0 Myelocytes % (Man) 0 Promyelocytes % (Man) 0 Blast Cells % (Manual) 0 Nucleated RBC % 0 Metamyelocytes 0 Hypochromia 0 Platelet Estimate Normal Polychromasia 0 Poikilocytosis 0 Anisocytosis 0 Microcytosis 0 Macrocytosis 0 PT with INR 18.00 H INR 1.52 H PTT (Actin FS) 24.0 L Anticoagulation Therapy A/c Puncture Site Left radial Patient Temperature No Result Required. ABG pH 7.348 L ABG pCO2 40.50 ABG pO2 84.2 ABG HCO3 21.8 L ABG O2 Sat (Measured) 95.9 ABG O2 Content No Result Required. ABG Base Excess -3.6 L Polo Test Positive Patient On Oxygen Yes O2 Delivery Device Vent Oxygen Flow Rate 50% Vent Mode A/c Vent Rate 14 Mechanical Rate Yes PEEP 15.0 Pressure Support Vent 450 Sodium Potassium Chloride Carbon Dioxide Anion Gap BUN Creatinine Est GFR (CKD-EPI)AfAm Est GFR (CKD-EPI)NonAf POC Glucometer Random Glucose Calcium Phosphorus Magnesium Total Bilirubin AST ALT Alkaline Phosphatase Total Protein Albumin Vancomycin Pre-Dose Blood Type Antibody Screen Crossmatch 10/21/19 10/21/19 10/21/19 05:40 05:42 11:32 WBC RBC Hgb Hct MCV MCH MCHC RDW Plt Count MPV Absolute Neuts (auto) Neutrophils % Neutrophils % (Manual) Band Neutrophils % Lymphocytes % Lymphocytes % (Manual) Monocytes % Monocytes % (Manual) Eosinophils % Eosinophils % (Manual) Basophils % Basophils % (Manual) Myelocytes % (Man) Promyelocytes % (Man) Blast Cells % (Manual) Nucleated RBC % Metamyelocytes Hypochromia Platelet Estimate Polychromasia Poikilocytosis Anisocytosis Microcytosis Macrocytosis PT with INR INR PTT (Actin FS) Anticoagulation Therapy Puncture Site Patient Temperature ABG pH ABG pCO2 ABG pO2 ABG HCO3 ABG O2 Sat (Measured) ABG O2 Content ABG Base Excess Polo Test Patient On Oxygen O2 Delivery Device Oxygen Flow Rate Vent Mode Vent Rate Mechanical Rate PEEP Pressure Support Vent Sodium 141 Potassium 3.8 Chloride 109 H Carbon Dioxide 24 Anion Gap 8 BUN 34.0 H Creatinine 0.7 Est GFR (CKD-EPI)AfAm 105.50 Est GFR (CKD-EPI)NonAf 91.03 POC Glucometer 232 267 Random Glucose 234 H Calcium 6.9 L* Phosphorus 2.2 L Magnesium 2.2 Total Bilirubin 0.6 AST 22 ALT 27 Alkaline Phosphatase 101 Total Protein 4.7 L Albumin 1.4 L Vancomycin Pre-Dose Blood Type Antibody Screen Crossmatch 10/21/19 16:46 WBC RBC Hgb Hct MCV MCH MCHC RDW Plt Count MPV Absolute Neuts (auto) Neutrophils % Neutrophils % (Manual) Band Neutrophils % Lymphocytes % Lymphocytes % (Manual) Monocytes % Monocytes % (Manual) Eosinophils % Eosinophils % (Manual) Basophils % Basophils % (Manual) Myelocytes % (Man) Promyelocytes % (Man) Blast Cells % (Manual) Nucleated RBC % Metamyelocytes Hypochromia Platelet Estimate Polychromasia Poikilocytosis Anisocytosis Microcytosis Macrocytosis PT with INR INR PTT (Actin FS) Anticoagulation Therapy Puncture Site Patient Temperature ABG pH ABG pCO2 ABG pO2 ABG HCO3 ABG O2 Sat (Measured) ABG O2 Content ABG Base Excess Polo Test Patient On Oxygen O2 Delivery Device Oxygen Flow Rate Vent Mode Vent Rate Mechanical Rate PEEP Pressure Support Vent Sodium Potassium Chloride Carbon Dioxide Anion Gap BUN Creatinine Est GFR (CKD-EPI)AfAm Est GFR (CKD-EPI)NonAf POC Glucometer 236 Random Glucose Calcium Phosphorus Magnesium Total Bilirubin AST ALT Alkaline Phosphatase Total Protein Albumin Vancomycin Pre-Dose Blood Type Antibody Screen Crossmatch S1 S2 Irregular Lungs decreased breath sounds Abd- soft, NT No edema diarrhea+ A/P acute respiratory failure Fever, pneumonitis CHF decompensation Aflutter leucocytosis suspected COVID -- though tests were negative anemia- s/p PRBC -- ICU management --s/p cardioversion -- rate control -- continue with meds --broad spectrum antibiotics -- prognosis is guarded -- on pressor support -- check cdiff stool -- spoke with ICU attending -- not ready to wean yet patient is DNR Problem List - Problems (1) Acute on chronic diastolic (congestive) heart failure Code(s): I50.33 - ACUTE ON CHRONIC DIASTOLIC (CONGESTIVE) HEART FAILURE (2) Acute respiratory failure with hypoxia Code(s): J96.01 - ACUTE RESPIRATORY FAILURE WITH HYPOXIA (3) Atrial fibrillation Code(s): I48.91 - UNSPECIFIED ATRIAL FIBRILLATION (4) GERD (gastroesophageal reflux disease) Code(s): K21.9 - GASTRO-ESOPHAGEAL REFLUX DISEASE WITHOUT ESOPHAGITIS (5) HTN (hypertension) Code(s): I10 - ESSENTIAL (PRIMARY) HYPERTENSION Qualifiers: Hypertension type: essential hypertension Qualified Code(s): I10 - Essential (primary) hypertension (6) Suspected 2019 novel coronavirus infection Code(s): Z20.828 - CONTACT W AND EXPOSURE TO [facility] VIRAL COMMUNICABLE DISEASES
[2019-10-21] MEDS: SODIUM CHLORIDE 1,000 ML IV SCH (17:05)
--- NOTE | 2019-10-21 18:05 | PN ---
Physical Exam: SUBJECTIVE: Patient seen and examined intubated and sedated. Pt continues to have diarrhea but making good urine. OBJECTIVE: GENERAL: The patient is sedated and intubated. HEAD: Normal with no signs of trauma. ENT: Ears normal, nares patent, pt intubated NECK: Trachea midline. LUNGS: Rhonchi on bilateral lung olvera HEART: Regular rate and rhythm ABDOMEN: Soft, mildly distended , normoactive bowel sounds EXTREMITIES: 2+ pulses, bilateral lower ext edema SKIN: Warm, dry, normal turgor, no rashes or lesions noted Vital Signs Period Temp Pulse Resp BP Sys/Amador Pulse Ox Last 24 Hr 98.1 F-99.1 F 62-87 15-24 100-139/48-64 93-100 Laboratory Results - last 24 hr 10/20/19 10/21/19 10/21/19 19:40 01:30 01:30 WBC 17.1 H RBC 2.90 L Hgb 8.7 L Hct 26.9 L D MCV 92.7 MCH 30.0 MCHC 32.3 RDW 15.9 Plt Count 154 MPV 9.5 Absolute Neuts (auto) Neutrophils % Neutrophils % (Manual) Band Neutrophils % Lymphocytes % Lymphocytes % (Manual) Monocytes % Monocytes % (Manual) Eosinophils % Eosinophils % (Manual) Basophils % Basophils % (Manual) Myelocytes % (Man) Promyelocytes % (Man) Blast Cells % (Manual) Nucleated RBC % Metamyelocytes Hypochromia Platelet Estimate Polychromasia Poikilocytosis Anisocytosis Microcytosis Macrocytosis PT with INR INR PTT (Actin FS) Anticoagulation Therapy Puncture Site Patient Temperature ABG pH ABG pCO2 ABG pO2 ABG HCO3 ABG O2 Sat (Measured) ABG O2 Content ABG Base Excess Polo Test Patient On Oxygen O2 Delivery Device Oxygen Flow Rate Vent Mode Vent Rate Mechanical Rate PEEP Pressure Support Vent Sodium Potassium Chloride Carbon Dioxide Anion Gap BUN Creatinine Est GFR (CKD-EPI)AfAm Est GFR (CKD-EPI)NonAf POC Glucometer Random Glucose Calcium Phosphorus Magnesium Total Bilirubin AST ALT Alkaline Phosphatase Total Protein Albumin Vancomycin Pre-Dose 5.8 Blood Type O POSITIVE Antibody Screen Negative Crossmatch See Detail 10/21/19 10/21/19 10/21/19 05:17 05:40 05:40 WBC 17.1 H RBC 2.97 L Hgb 8.8 L Hct 27.2 L MCV 91.4 MCH 29.5 MCHC 32.3 RDW 15.9 Plt Count 168 MPV 9.4 Absolute Neuts (auto) 16.4 H Neutrophils % 95.5 H Neutrophils % (Manual) 96.0 H Band Neutrophils % 0.0 Lymphocytes % 2.5 L Lymphocytes % (Manual) 3.0 L D Monocytes % 1.9 L Monocytes % (Manual) 1 L Eosinophils % 0.0 Eosinophils % (Manual) 0.0 Basophils % 0.1 Basophils % (Manual) 0.0 Myelocytes % (Man) 0 Promyelocytes % (Man) 0 Blast Cells % (Manual) 0 Nucleated RBC % 0 Metamyelocytes 0 Hypochromia 0 Platelet Estimate Normal Polychromasia 0 Poikilocytosis 0 Anisocytosis 0 Microcytosis 0 Macrocytosis 0 PT with INR 18.00 H INR 1.52 H PTT (Actin FS) 24.0 L Anticoagulation Therapy A/c Puncture Site Left radial Patient Temperature No Result Required. ABG pH 7.348 L ABG pCO2 40.50 ABG pO2 84.2 ABG HCO3 21.8 L ABG O2 Sat (Measured) 95.9 ABG O2 Content No Result Required. ABG Base Excess -3.6 L Polo Test Positive Patient On Oxygen Yes O2 Delivery Device Vent Oxygen Flow Rate 50% Vent Mode A/c Vent Rate 14 Mechanical Rate Yes PEEP 15.0 Pressure Support Vent 450 Sodium Potassium Chloride Carbon Dioxide Anion Gap BUN Creatinine Est GFR (CKD-EPI)AfAm Est GFR (CKD-EPI)NonAf POC Glucometer Random Glucose Calcium Phosphorus Magnesium Total Bilirubin AST ALT Alkaline Phosphatase Total Protein Albumin Vancomycin Pre-Dose Blood Type Antibody Screen Crossmatch 10/21/19 10/21/19 10/21/19 05:40 05:42 11:32 WBC RBC Hgb Hct MCV MCH MCHC RDW Plt Count MPV Absolute Neuts (auto) Neutrophils % Neutrophils % (Manual) Band Neutrophils % Lymphocytes % Lymphocytes % (Manual) Monocytes % Monocytes % (Manual) Eosinophils % Eosinophils % (Manual) Basophils % Basophils % (Manual) Myelocytes % (Man) Promyelocytes % (Man) Blast Cells % (Manual) Nucleated RBC % Metamyelocytes Hypochromia Platelet Estimate Polychromasia Poikilocytosis Anisocytosis Microcytosis Macrocytosis PT with INR INR PTT (Actin FS) Anticoagulation Therapy Puncture Site Patient Temperature ABG pH ABG pCO2 ABG pO2 ABG HCO3 ABG O2 Sat (Measured) ABG O2 Content ABG Base Excess Polo Test Patient On Oxygen O2 Delivery Device Oxygen Flow Rate Vent Mode Vent Rate Mechanical Rate PEEP Pressure Support Vent Sodium 141 Potassium 3.8 Chloride 109 H Carbon Dioxide 24 Anion Gap 8 BUN 34.0 H Creatinine 0.7 Est GFR (CKD-EPI)AfAm 105.50 Est GFR (CKD-EPI)NonAf 91.03 POC Glucometer 232 267 Random Glucose 234 H Calcium 6.9 L* Phosphorus 2.2 L Magnesium 2.2 Total Bilirubin 0.6 AST 22 ALT 27 Alkaline Phosphatase 101 Total Protein 4.7 L Albumin 1.4 L Vancomycin Pre-Dose Blood Type Antibody Screen Crossmatch 10/21/19 16:46 WBC RBC Hgb Hct MCV MCH MCHC RDW Plt Count MPV Absolute Neuts (auto) Neutrophils % Neutrophils % (Manual) Band Neutrophils % Lymphocytes % Lymphocytes % (Manual) Monocytes % Monocytes % (Manual) Eosinophils % Eosinophils % (Manual) Basophils % Basophils % (Manual) Myelocytes % (Man) Promyelocytes % (Man) Blast Cells % (Manual) Nucleated RBC % Metamyelocytes Hypochromia Platelet Estimate Polychromasia Poikilocytosis Anisocytosis Microcytosis Macrocytosis PT with INR INR PTT (Actin FS) Anticoagulation Therapy Puncture Site Patient Temperature ABG pH ABG pCO2 ABG pO2 ABG HCO3 ABG O2 Sat (Measured) ABG O2 Content ABG Base Excess Polo Test Patient On Oxygen O2 Delivery Device Oxygen Flow Rate Vent Mode Vent Rate Mechanical Rate PEEP Pressure Support Vent Sodium Potassium Chloride Carbon Dioxide Anion Gap BUN Creatinine Est GFR (CKD-EPI)AfAm Est GFR (CKD-EPI)NonAf POC Glucometer 236 Random Glucose Calcium Phosphorus Magnesium Total Bilirubin AST ALT Alkaline Phosphatase Total Protein Albumin Vancomycin Pre-Dose Blood Type Antibody Screen Crossmatch Active Medications Generic Name Dose Route Start Last Admin Trade Name Freq PRN Reason Stop Dose Admin Acetaminophen 650 mg 10/06/19 00:25 10/13/19 17:17 Tylenol - PO 650 mg Q6H PRN Administration FEVER Albuterol Sulfate 2 puff 10/06/19 00:25 Ventolin Hfa Inhaler - IH Q4H PRN SHORT OF BREATH/WHEEZING Apixaban 5 mg 10/06/19 10:00 10/21/19 09:33 Eliquis - PO 5 mg BID MAGI Administration Atorvastatin Calcium 40 mg 10/06/19 22:00 10/20/19 21:37 Lipitor - PO 40 mg HS MAGI Administration Banana Based Medical Food 1 packet 10/20/19 22:00 10/21/19 14:39 Banatrol Plus Powder Packet PO 1 packet TID MAGI Administration Chlorhexidine Gluconate 1 applic 10/06/19 22:00 10/20/19 22:43 Hibiclens For Decolonization - TP 1 applic HS MAGI Administration Propofol 1,000,000 mcg in 100 mls @ 11.97 mls/hr 10/11/19 14:30 10/21/19 17:08 Diprivan - IVPB 35.09 mcg/kg/min TITR MAGI 14 mls/hr Administration Protocol 30 MCG/KG/MIN Piperacillin Sod/Tazobactam 50 mls @ 100 mls/hr 10/12/19 16:15 10/21/19 17:06 Sod 3.375 gm/ Dextrose IVPB 100 mls/hr Q8H-IV MAGI Administration Protocol Norepinephrine Bitartrate 8,000 mcg in 500 mls @ 18.75 mls/hr 10/18/19 21:15 10/21/19 09:34 Levophed Bag IVPB 4 mcg/min TITR MAGI 15 mls/hr Titration Protocol 5 MCG/MIN Sodium Chloride 1,000 mls @ 75 mls/hr 10/19/19 12:30 10/21/19 17:05 Normal Saline - IV Not Given ASDIR MAGI Fentanyl 500 mcg in 100 mls @ 10 mls/hr 10/20/19 12:45 10/21/19 09:33 Sublimaze Ivpb IVPB 50 mcg/hr TITR MAGI 10 mls/hr Administration Protocol 50 MCG/HR Insulin Aspart 1 vial 10/15/19 11:15 10/21/19 17:07 Novolog Vial Sliding Scale - SQ 4 units TIDAC [facility] Administration Protocol Insulin Detemir 15 units 10/17/19 10:24 10/20/19 22:42 Levemir Vial SQ 15 units HS MAGI Administration Methylprednisolone Sodium Succinate 30 mg 10/13/19 22:00 10/21/19 09:32 Solu-Medrol - IVPUSH 30 mg BID MAGI Administration Metoprolol Tartrate 5 mg 10/12/19 21:13 10/17/19 09:25 Lopressor Injection - IVPUSH 5 mg Q4H PRN Administration TACHYCARDIA Mirtazapine 15 mg 10/06/19 22:00 10/20/19 21:37 Remeron - PO 15 mg HS MAGI Administration Pantoprazole Sodium 40 mg 10/06/19 11:15 10/21/19 09:32 Protonix Iv IVPUSH 40 mg DAILY MAGI Administration Sotalol HCl 80 mg 10/10/19 22:30 10/21/19 09:32 Betapace - PO 80 mg BID MAGI Administration ASSESSMENT/PLAN: 78 yo male DNR with pmh afib, angina, chf, htn, gi bleed, recent admission for covid, afib, and acs in ICU for acute hypoxic resp failure to possible covid pneumonitis vs ARDS Neuro #Acute Metabolic Encephalopathy -Pt sedated on propofol and fentanyl trying to wean off -Daily weaning trials -Held mirtazapine for depression Cardiovascular #Afib w/ RVR #Hx of CHF #CAD s/p CABG #Aortic Stenosis s/p AVR #HTN/HLD -Pt on levo 6mg weaning off maintain MAP >65 -Eliquis 5mg bid -Continue Sotalol 80 mg PO BID with caution with close monitoring of QTc. Pt QTc today was below 500 -Cont Atorvastatin 40mg QD -Pt periodically on Lopressor 5 mg IVP PRN for rate control -may utilize intravenous Cardizem therapy with caution as needed hemodynamics permitting for management of recurrent arrhythmia Pulm #Acute Hypoxic Respiratory Failure 2/2 possible Covid pneumonitis vs. ARDS -s/p intubation on 10/04 -Solumedrol 30 mg IV BID (started 10/12 will wean 14 days to 30mg QD so 10/24) -Titrate FiO2, PEEP to keep SpO2 >90% -ABG today:pH 7.348 -Pt vent settings were rate 14 volume 450, PEEP 5, FiO2 50% Pplat 26 today. If PPlat <20 will start weaning off sedation. -Sedate for vent synchrony ID #Suspected COVID Pneumonia #ARDS -Zosyn 3.375 Q8H (started 10/11) -ID consult appreciated -CXR today (10/18) slight improvement - Pt has WBC of 17.1 downtrending cont diarrhea Cdif came back negative so D/c vancomycin - Bcx Sputum cx, urine cx, and cdiff cx taken Renal - Pt renal function elevated. Intake and outake low. - Pt was started back on maintenance fluids 75 cc/hour -Monitor I/O's, Cr and electrolytes Heme #Anemia, w/ hx of GI bleed -Stool occult negative - Hgb 8.8 Will continue to monitor GI #Abd Distension/Diarrhea #H/o of GI Bleed -Still with diarrhea, no acute bleeding seen -KUB unremarkable -Protonix 40 IV QD Endo #Hyperglycemia -Levemir 15U HS -BGM/ISS Q6H LTD -Smiley 10/04 -Intubation 10/04 -RIJ 10/20 Prophylaxis - DVT- SCD/ eliquis - GI- protonix Dispo -Cont to monitor in ICU Visit type - Emergency Visit Emergency Visit: Yes ED Registration Date: 09/23/19 Care time: The patient presented to the Emergency Department on the above date and was hospitalized for further evaluation of their emergent condition. - New Patient This patient is new to me today: No - Critical Care Critical Care patient: Yes Total Critical Care Time (in minutes): 36 Critical Care Statement: The care of this patient involved high complexity decision making to prevent further life threatening deterioration of the patient's condition and/or to evaluate & treat vital organ system(s) failure or risk of failure. - Medication Review Med list reviewed for High Risk Meds patients 65 and older: Yes ATTENDING PHYSICIAN STATEMENT I saw and evaluated the patient. I reviewed the resident's note and discussed the case with the resident. I agree with the resident's findings and plan as documented. SUBJECTIVE: OBJECTIVE: ASSESSMENT AND PLAN:
[2019-10-21] MEDS ORDERED: MIDAZOLAM HCL 2 MG/2 ML SINGLE DOSE VIAL ONE (19:20)
[2019-10-21] MEDS ORDERED: FENTANYL NS IVPB 500 MCG/100 ML BAG IVPB ONE (20:31)
[2019-10-21] MEDS: NOREPINEPHRINE BITARTRATE 8,000 MCG/500 ML BAG IVPB SCH (21:35)
[2019-10-21] MEDS: CHLORHEXIDINE GLUCONATE 4% CLEANSER FOR DECOLONIZATION TP SCH (21:38)
[2019-10-21] MEDS: MIRTAZAPINE 15 MG TABLET (FP) PO SCH (21:38)
[2019-10-21] MEDS: ATORVASTATIN CA 40 MG TABLET (FP) PO SCH (21:38)
--- NOTE | 2019-10-21 22:03 | PROC ---
Central Line Insertion Indication: Vasopressor Risks and Benefits Explained: Yes Consent on Chart: Yes Central Line: Triple Lumen Catheter Anesthesia: 1% Lidocaine Sterile Technique: Yes Ultrasound Guided Assistance: Yes Position: Right Internal Jugular Post Insertion: Yes: Chest X-Ray Ordered Sterile Dressing Applied: Yes
[2019-10-21] MEDS: INSULIN (LEVEMIR) 100 UNITS/ML UNITS SQ SCH (22:40)
--- NOTE | 2019-10-21 23:03 | PN ---
Progress Note, Physician Chief Complaint: LETHARGIC SEDATED ON VENTILATOR AFEBRILE WBC IMPROVED + LOOSE STOOL C DIFF(-) CXR B/L INFILTRATES SPUTUM LF - Current Medication List Current Medications: Active Medications Acetaminophen (Tylenol -) 650 mg PO Q6H PRN PRN Reason: FEVER Last Admin: 10/13/19 17:17 Dose: 650 mg Documented by: Albuterol Sulfate (Ventolin Hfa Inhaler -) 2 puff IH Q4H PRN PRN Reason: SHORT OF BREATH/WHEEZING Apixaban (Eliquis -) 5 mg PO BID [facility] Last Admin: 10/21/19 21:37 Dose: 5 mg Documented by: Atorvastatin Calcium (Lipitor -) 40 mg PO HS [facility] Last Admin: 10/21/19 21:38 Dose: 40 mg Documented by: Banana Based Medical Food (Banatrol Plus Powder Packet) 1 packet PO TID [facility] Last Admin: 10/21/19 21:35 Dose: 1 packet Documented by: Chlorhexidine Gluconate (Hibiclens For Decolonization -) 1 applic TP HS [facility] Last Admin: 10/21/19 21:38 Dose: 1 applic Documented by: Propofol (Diprivan -) 1,000,000 mcg in 100 mls @ 11.97 mls/hr IVPB TITR MAGI; Protocol Last Admin: 10/21/19 21:34 Dose: 35.09 mcg/kg/min, 14 mls/hr Documented by: Piperacillin Sod/Tazobactam (Sod 3.375 gm/ Dextrose) 50 mls @ 100 mls/hr IVPB Q8H-IV MAGI; Protocol Last Admin: 10/21/19 17:06 Dose: 100 mls/hr Documented by: Norepinephrine Bitartrate (Levophed Bag) 8,000 mcg in 500 mls @ 18.75 mls/hr IVPB TITR MAGI; Protocol Last Admin: 10/21/19 21:35 Dose: 4 mcg/min, 15 mls/hr Documented by: Sodium Chloride (Normal Saline -) 1,000 mls @ 75 mls/hr IV ASDIR MAGI Last Admin: 10/21/19 17:05 Dose: Not Given Documented by: Fentanyl (Sublimaze Ivpb) 500 mcg in 100 mls @ 10 mls/hr IVPB TITR MAGI; Protocol Last Admin: 10/21/19 21:35 Dose: 50 mcg/hr, 10 mls/hr Documented by: Insulin Aspart (Novolog Vial Sliding Scale -) 1 vial SQ TIDAC [facility]; Protocol Last Admin: 10/21/19 17:07 Dose: 4 units Documented by: Insulin Detemir (Levemir Vial) 15 units SQ [facility] Last Admin: 10/20/19 22:42 Dose: 15 units Documented by: Methylprednisolone Sodium Succinate (Solu-Medrol -) 30 mg IVPUSH BID [facility] Last Admin: 10/21/19 21:39 Dose: 30 mg Documented by: Metoprolol Tartrate (Lopressor Injection -) 5 mg IVPUSH Q4H PRN PRN Reason: TACHYCARDIA Last Admin: 10/17/19 09:25 Dose: 5 mg Documented by: Mirtazapine (Remeron -) 15 mg PO [facility] Last Admin: 10/21/19 21:38 Dose: Not Given Documented by: Pantoprazole Sodium (Protonix Iv) 40 mg IVPUSH DAILY [facility] Last Admin: 10/21/19 09:32 Dose: 40 mg Documented by: Sotalol HCl (Betapace -) 80 mg PO BID [facility] Last Admin: 10/21/19 09:32 Dose: 80 mg Documented by: - Objective Vital Signs: Vital Signs Temperature 98.1 F 10/21/19 16:00 Pulse Rate 61 10/21/19 20:00 Respiratory Rate 22 H 10/21/19 20:35 Blood Pressure 126/58 L 10/21/19 20:00 O2 Sat by Pulse Oximetry (%) 96 10/21/19 20:35 Labs: CBC, BMP 10/21/19 05:40 10/21/19 05:40 INR, PTT INR 1.52 (0.83-1.09) H 10/21/19 05:40 Fibrinogen > 500.0 mg/dL (238-498) H 10/08/19 06:30
[2019-10-22] MEDS ORDERED: PIPERACILLIN/TAZOBACTAM 3.375 GM VIAL IVPB ONE (00:32)
[2019-10-22] MEDS ORDERED: DEXTROSE 5%-WATER - 50 ML IVPB ONE (00:33)
[2019-10-22] MEDS: PIPERACILLIN/TAZOB 3.375 GM 3.375 GM in DEXTROSE 5%-WATER - 50 ML IVPB SCH (01:39)
[2019-10-22] MEDS: PROPOFOL 1,000,000 MCG/100 ML VIAL IVPB SCH ×3 (01:41→20:33)
[2019-10-22] MEDS: BANATROL PLUS POWDER PACKET PO SCH ×3 (06:32→21:33)
[2019-10-22 06:35] LABS: ARTERIAL BLD GAS O2 SATURATION 97.2 mmHg (95-98); ARTERIAL BLOOD GAS BASE EXCESS -3.1 mmol/L (-2-2); ARTERIAL BLOOD GAS pH 7.349 (7.350-7.450)
--- NOTE | 2019-10-22 07:06 | PN ---
Progress Note, Physician Chief Complaint: LETHARGIC SEDATED ON VENTILATOR AFEBRILE WBC IMPROVED + LOOSE STOOL C DIFF(-) CXR B/L INFILTRATES SPUTUM KLEBSIELLA - Current Medication List Current Medications: Active Medications Acetaminophen (Tylenol -) 650 mg PO Q6H PRN PRN Reason: FEVER Last Admin: 10/13/19 17:17 Dose: 650 mg Documented by: Albuterol Sulfate (Ventolin Hfa Inhaler -) 2 puff IH Q4H PRN PRN Reason: SHORT OF BREATH/WHEEZING Apixaban (Eliquis -) 5 mg PO BID [facility] Last Admin: 10/21/19 21:37 Dose: 5 mg Documented by: Atorvastatin Calcium (Lipitor -) 40 mg PO HS [facility] Last Admin: 10/21/19 21:38 Dose: 40 mg Documented by: Banana Based Medical Food (Banatrol Plus Powder Packet) 1 packet PO TID [facility] Last Admin: 10/22/19 06:32 Dose: 1 packet Documented by: Chlorhexidine Gluconate (Hibiclens For Decolonization -) 1 applic TP HS [facility] Last Admin: 10/21/19 21:38 Dose: 1 applic Documented by: Propofol (Diprivan -) 1,000,000 mcg in 100 mls @ 11.97 mls/hr IVPB TITR [facility]; Protocol Last Admin: 10/22/19 01:41 Dose: 35.09 mcg/kg/min, 14 mls/hr Documented by: Piperacillin Sod/Tazobactam (Sod 3.375 gm/ Dextrose) 50 mls @ 100 mls/hr IVPB Q8H-IV MAGI; Protocol Last Admin: 10/22/19 01:39 Dose: 100 mls/hr Documented by: Norepinephrine Bitartrate (Levophed Bag) 8,000 mcg in 500 mls @ 18.75 mls/hr IVPB TITR MAGI; Protocol Last Admin: 10/21/19 21:35 Dose: 4 mcg/min, 15 mls/hr Documented by: Sodium Chloride (Normal Saline -) 1,000 mls @ 75 mls/hr IV ASDIR MAGI Last Admin: 10/21/19 17:05 Dose: Not Given Documented by: Fentanyl (Sublimaze Ivpb) 500 mcg in 100 mls @ 10 mls/hr IVPB TITR MAGI; Protocol Last Titration: 10/22/19 01:41 Dose: 100 mcg/hr, 20 mls/hr Documented by: Insulin Aspart (Novolog Vial Sliding Scale -) 1 vial SQ TIDAC [facility]; Protocol Last Admin: 10/21/19 17:07 Dose: 4 units Documented by: Insulin Detemir (Levemir Vial) 15 units SQ [facility] Last Admin: 10/21/19 22:40 Dose: 15 units Documented by: Methylprednisolone Sodium Succinate (Solu-Medrol -) 30 mg IVPUSH BID [facility] Last Admin: 10/21/19 21:39 Dose: 30 mg Documented by: Metoprolol Tartrate (Lopressor Injection -) 5 mg IVPUSH Q4H PRN PRN Reason: TACHYCARDIA Last Admin: 10/17/19 09:25 Dose: 5 mg Documented by: Mirtazapine (Remeron -) 15 mg PO [facility] Last Admin: 10/21/19 21:38 Dose: Not Given Documented by: Pantoprazole Sodium (Protonix Iv) 40 mg IVPUSH DAILY [facility] Last Admin: 10/21/19 09:32 Dose: 40 mg Documented by: Sotalol HCl (Betapace -) 80 mg PO BID [facility] Last Admin: 10/21/19 22:30 Dose: 80 mg Documented by: - Objective Vital Signs: Vital Signs Temperature 98.1 F 10/21/19 16:00 Pulse Rate 61 10/21/19 20:00 Respiratory Rate 16 10/22/19 04:45 Blood Pressure 126/58 L 10/21/19 20:00 O2 Sat by Pulse Oximetry (%) 96 10/22/19 04:45 Constitutional: Yes: No Distress Eyes: Yes: Conjunctiva Clear Cardiovascular: Yes: Regular Rate and Rhythm, S1, S2 Respiratory: Yes: Mechanically Ventilated Gastrointestinal: Yes: Normal Bowel Sounds, Soft Edema: Yes Labs: CBC, BMP 10/21/19 05:40 10/21/19 05:40 INR, PTT INR 1.52 (0.83-1.09) H 10/21/19 05:40 Fibrinogen > 500.0 mg/dL (238-498) H 10/08/19 06:30 Assessment/Plan BILATERAL INFILTRATES ? PNEUMONITIS ? CHF RESP FAILURE S/P TAVR COVID -19 (-) X5 SUBSTITUTE CEFEPIME PO VANCOMYCIN VENTILATORY SUPPORT
[2019-10-22 07:09] LABS: ALLENS TEST POSITIVE
[2019-10-22 07:10] LABS: VENT MODE A/C; VENT RATE 14
[2019-10-22] MEDS: INSULIN SLIDING SCALE (NOVOLOG) 1 VIAL SQ SCH ×3 (08:00→17:25)
[2019-10-22 08:09] LABS: BASO % 0.2 % (0-2.0); HEMATOCRIT 23.9 % (35.4-49); HEMOGLOBIN 7.8 GM/dL (11.7-16.9); LYMPH % 3.2 % (8-40); MCH 29.6 pg (25.7-33.7); MCHC 32.5 g/dl (32.0-35.9); MEAN CELL VOLUME 91.3 fl (80-96); MEAN PLT VOLUME 9.4 fl (7.5-11.1); MONO % 1.8 % (3.8-10.2); NEUT % 94.8 % (42.8-82.8); PLATELET COUNT 117 K/MM3 (134-434); RBC 2.62 M/mm3 (4.00-5.60); RDW 16.4 % (11.9-15.9); WHITE BLOOD COUNT 13.7 K/mm3 (4.0-10.0)
[2019-10-22 08:15] LABS: ALBUMIN 1.3 g/dl (3.4-5.0); BILIRUBIN,TOTAL 0.6 mg/dL (0.2-1); BLOOD UREA NITROGEN 29.6 mg/dL (7-18); CREATININE 0.5 mg/dL (0.55-1.3); PHOSPHOROUS 2.2 mg/dL (2.5-4.9); TOT PROT 4.1 g/dl (6.4-8.2)
[2019-10-22 08:31] LABS: CALCIUM 6.6 mg/dL (8.5-10.1)
[2019-10-22] MEDS ORDERED: NAPH,MB-DB/K PH,MBDB POWDER PACKET PO ONE (08:35)
--- NOTE | 2019-10-22 08:45 | PN ---
Progress Note, Physician History of Present Illness: Sedated and intubated weaned off pressors. Vented on volume assist control with 50% FiO2, PEEP 5. Pplat 20. Vomiting overnight and this AM, obstruction series show distended small and large bowel loops. Episodes of PAF post DCCV. - Current Medication List Current Medications: Active Medications Acetaminophen (Tylenol -) 650 mg PO Q6H PRN PRN Reason: FEVER Last Admin: 10/13/19 17:17 Dose: 650 mg Documented by: Albuterol Sulfate (Ventolin Hfa Inhaler -) 2 puff IH Q4H PRN PRN Reason: SHORT OF BREATH/WHEEZING Apixaban (Eliquis -) 5 mg PO BID [facility]I Last Admin: 10/21/19 21:37 Dose: 5 mg Documented by: Atorvastatin Calcium (Lipitor -) 40 mg PO HS [facility] Last Admin: 10/21/19 21:38 Dose: 40 mg Documented by: Banana Based Medical Food (Banatrol Plus Powder Packet) 1 packet PO TID MAGI Last Admin: 10/22/19 06:32 Dose: 1 packet Documented by: Chlorhexidine Gluconate (Hibiclens For Decolonization -) 1 applic TP HS [facility] Last Admin: 10/21/19 21:38 Dose: 1 applic Documented by: Propofol (Diprivan -) 1,000,000 mcg in 100 mls @ 11.97 mls/hr IVPB TITR [facility]I; Protocol Last Admin: 10/22/19 01:41 Dose: 35.09 mcg/kg/min, 14 mls/hr Documented by: Norepinephrine Bitartrate (Levophed Bag) 8,000 mcg in 500 mls @ 18.75 mls/hr IVPB TITR [facility]I; Protocol Last Admin: 10/21/19 21:35 Dose: 4 mcg/min, 15 mls/hr Documented by: Sodium Chloride (Normal Saline -) 1,000 mls @ 75 mls/hr IV ASDIR [facility]I Last Admin: 10/21/19 17:05 Dose: Not Given Documented by: Fentanyl (Sublimaze Ivpb) 500 mcg in 100 mls @ 10 mls/hr IVPB TITR MAGI; Protoc ol Last Titration: 10/22/19 01:41 Dose: 100 mcg/hr, 20 mls/hr Documented by: Cefepime HCl 1 gm/ Dextrose 100 mls @ 100 mls/hr IVPB Q8H-IV [facility]; Protocol Insulin Aspart (Novolog Vial Sliding Scale -) 1 vial SQ TIDAC [facility]; Protocol Last Admin: 10/21/19 17:07 Dose: 4 units Documented by: Insulin Detemir (Levemir Vial) 15 units SQ [facility] Last Admin: 10/21/19 22:40 Dose: 15 units Documented by: Methylprednisolone Sodium Succinate (Solu-Medrol -) 30 mg IVPUSH BID [facility] Last Admin: 10/21/19 21:39 Dose: 30 mg Documented by: Metoprolol Tartrate (Lopressor Injection -) 5 mg IVPUSH Q4H PRN PRN Reason: TACHYCARDIA Last Admin: 10/17/19 09:25 Dose: 5 mg Documented by: Mirtazapine (Remeron -) 15 mg PO [facility] Last Admin: 10/21/19 21:38 Dose: Not Given Documented by: Pantoprazole Sodium (Protonix Iv) 40 mg IVPUSH DAILY [facility] Last Admin: 10/21/19 09:32 Dose: 40 mg Documented by: Sotalol HCl (Betapace -) 80 mg PO BID [facility] Last Admin: 10/21/19 22:30 Dose: 80 mg Documented by: - Objective Vital Signs: Vital Signs Temperature 97.9 F 10/22/19 06:00 Pulse Rate 55 L 10/22/19 06:00 Respiratory Rate 14 10/22/19 06:00 Blood Pressure 109/48 L 10/22/19 06:00 O2 Sat by Pulse Oximetry (%) 99 10/22/19 06:00 Constitutional: Yes: Other (Sedated and intubated) Respiratory: Yes: Intubated, Mechanically Ventilated, Rhonchi Gastrointestinal: Yes: Normal Bowel Sounds, Soft Genitourinary: Yes: Smiley Present Edema: No Labs: CBC, BMP 10/22/19 06:25 10/22/19 06:25 INR, PTT INR 1.52 (0.83-1.09) H 10/21/19 05:40 Fibrinogen > 500.0 mg/dL (238-498) H 10/08/19 06:30 - ....Imaging Chest X-ray: Report Reviewed (Bilateral infiltrates and effusion) EKG: Report Reviewed (Tele: [facility]) Problem List - Problems (1) Acute on chronic diastolic (congestive) heart failure Code(s): I50.33 - ACUTE ON CHRONIC DIASTOLIC (CONGESTIVE) HEART FAILURE (2) Acute respiratory failure with hypoxia Code(s): J96.01 - ACUTE RESPIRATORY FAILURE WITH HYPOXIA (3) Aortic valve stenosis Code(s): I35.0 - NONRHEUMATIC AORTIC (VALVE) STENOSIS Qualifiers: Cardiac valve disease etiology: nonrheumatic Qualified Code(s): I35.0 - Nonrheumatic aortic (valve) stenosis (4) Atrial flutter Code(s): I48.92 - UNSPECIFIED ATRIAL FLUTTER Qualifiers: Atrial flutter type: typical Qualified Code(s): I48.3 - Typical atrial flutter (5) CAD (coronary artery disease) Code(s): I25.10 - ATHSCL HEART DISEASE OF [place] CORONARY ARTERY W/O ANG PCTRS Qualifiers: Coronary Disease-Associated Artery/Lesion type: [place] artery [place] vs. t ransplanted heart: [place] heart Associated angina: without angina Qualified Code(s): I25.10 - Atherosclerotic heart disease of [place] coronary artery without angina pectoris (6) HTN (hypertension) Code(s): I10 - ESSENTIAL (PRIMARY) HYPERTENSION Qualifiers: Hypertension type: essential hypertension Qualified Code(s): I10 - Essential (primary) hypertension (7) Hx of CABG Code(s): Z95.1 - PRESENCE OF AORTOCORONARY BYPASS GRAFT (8) Hypercholesterolemia Code(s): E78.00 - PURE HYPERCHOLESTEROLEMIA, UNSPECIFIED (9) S/P AVR (aortic valve replacement) Code(s): Z95.2 - PRESENCE OF PROSTHETIC HEART VALVE (10) S/P left atrial appendage ligation Code(s): Z98.890 - OTHER SPECIFIED POSTPROCEDURAL STATES (11) Suspected COVID-19 virus infection Code(s): Z20.828 - CONTACT W AND EXPOSURE TO [facility] VIRAL COMMUNICABLE DISEASES Assessment/Plan Echo 09/03/2019 Post-op septal motion, normal LVEF 50-55%, mod cLVH, normal RV size and fxn, mild LAE, mild MR, TR, bioAVR, mild AR, restrictive physiology Echocardiography October 12, 2018 revealed mild degree of concentric left ventricular hypertrophy with normal left ventricular systolic function and estimated LVEF between 65-70%, mild left atrial dilatation, normal right ventricular size and systolic function, aortic valve bioprosthesis with no aortic valve insufficiency, moderately dilated ascending aorta, mild thickening of the mitral valve leaflets with mild mitral valve regurgitation, mild to moderate tricuspid valve regurgitation with calculated RVSP of [address]: Small-moderate right and very small left effusion, pulm edema TAA 3.9 cm 1. Clinical presentation is consistent with acute hypoxic respiratory failure related to bronchopneumonia with sepsis syndrome, coronavirus/COVID 19- persistent residual infiltrates 2. Diastolic left ventricular dysfunction with chronic class I-II NYHA classification left ventricular failure 3. Paroxysmal atrial flutter [id number] score of 5 post cardioversion on DOAC's/Eliquis 4. CAD post CABG with evidence of demand ischemia related to the above-noted clinical presentation angina pectoris 5. Aortic valve stenosis post SAVR/bio-prosthesis- with LA appendage ligation 6. Hypertensive cardiovascular disease, intermittent hypotension related to the above-noted sepsis syndrome 7. Hyperglycemia- diabetes mellitus 8. Hypercholesterolemia 9. History of altered mental status etiology of which was unclear- prior history of clinical depression 10. GURU resolved 11. Anemia post-transfusion 12. Suspected ileus PLAN: 1. Weaned off Levophed 2. Continue Sotalol 80 bid with caution and close monitoring of QTc interval, IV Lopressor as needed for rate-control 3. Continue Atorvastatin 40 qd 4. Continue DOAC's/Eliquis 5 bid with caution and close monitoring of hemoglobin level, maintaining hemoglobin level equal or greater than 8.0 5. Withhold Lasix therapy in view of the above-noted prerenal azotemia 6. Antibiotics as per the primary team, IV steroid taper, vent wean as tolerated, enteral feeds as tolerated, c. diff negative Overall poor prognosis
[2019-10-22] MEDS ORDERED: DEXTROSE 5%-WATER 100 ML IVPB ONE ×3 (09:14→20:29)
[2019-10-22] MEDS ORDERED: CEFEPIME HCL 1 GM VIAL (RESTRICTED TO ID) ONE ×3 (09:14→20:29)
[2019-10-22] MEDS: SOTALOL HCL 80 MG TABLET (FP) PO SCH ×3 (09:35→22:01)
[2019-10-22] MEDS: methylPREDNISolone NA SUCC 40 MG/1 ML VIAL IVPUSH SCH ×2 (09:35→21:33)
[2019-10-22] MEDS: PANTOPRAZOLE SODIUM 40 MG VIAL IVPUSH SCH (09:35)
[2019-10-22] MEDS: CEFEPIME 1 GM in DEXTROSE 5%-WATER 100 ML IVPB SCH ×2 (09:35→17:25)
[2019-10-22] MEDS: APIXABAN 5 MG TABLET PO SCH ×2 (09:35→21:33)
[2019-10-22 09:42] LABS: ANISOCYTOSIS 0; MACROCYTOSIS 0; PLATELET ESTIMATE DECREASED
[2019-10-22] MEDS ORDERED: PT OWN MED DRAWER 7, Y5N ONE (09:42)
[2019-10-22] MEDS ORDERED: MIDAZOLAM HCL 2 MG/2 ML SINGLE DOSE VIAL IVPUSH ONE (09:46)
[2019-10-22] MEDS ORDERED: FUROSEMIDE 40 MG/4 ML INJECTABLE VIAL IVPUSH ONE (10:57)
--- NOTE | 2019-10-22 10:57 | PN ---
Physical Exam: SUBJECTIVE: Patient seen and examined intubated and sedated. Pt started emesis this morning so will hold feeds. OBJECTIVE: GENERAL: The patient is sedated and intubated. HEAD: Normal with no signs of trauma. ENT: Ears normal, nares patent, pt intubated NECK: Trachea midline. LUNGS: Rhonchi on bilateral lung [place] HEART: Regular rate and rhythm ABDOMEN: Soft, mildly distended , normoactive bowel sounds EXTREMITIES: 2+ pulses, bilateral lower ext edema SKIN: Warm, dry, normal turgor, no rashes or lesions noted Vital Signs Period Temp Pulse Resp BP Sys/Amador Pulse Ox Last 24 Hr 97.3 F-98.1 F 53-77 12-22 100-152/46-68 93-100 Laboratory Results - last 24 hr 10/20/19 10/21/19 10/21/19 19:40 11:32 16:46 WBC RBC Hgb Hct MCV MCH MCHC RDW Plt Count MPV Absolute Neuts (auto) Neutrophils % Neutrophils % (Manual) Band Neutrophils % Lymphocytes % Lymphocytes % (Manual) Monocytes % Monocytes % (Manual) Eosinophils % Eosinophils % (Manual) Basophils % Basophils % (Manual) Myelocytes % (Man) Promyelocytes % (Man) Blast Cells % (Manual) Nucleated RBC % Metamyelocytes Hypochromia Platelet Estimate Polychromasia Poikilocytosis Basophilic Stippling Anisocytosis Microcytosis Macrocytosis Anticoagulation Therapy Puncture Site Patient Temperature ABG pH ABG pCO2 ABG pO2 ABG HCO3 ABG O2 Sat (Measured) ABG O2 Content ABG Base Excess Polo Test Patient On Oxygen O2 Delivery Device Oxygen Flow Rate Vent Mode Vent Rate Mechanical Rate PEEP Pressure Support Vent Sodium Potassium Chloride Carbon Dioxide Anion Gap BUN Creatinine Est GFR (CKD-EPI)AfAm Est GFR (CKD-EPI)NonAf POC Glucometer 267 236 Random Glucose Calcium Phosphorus Magnesium Total Bilirubin AST ALT Alkaline Phosphatase Total Protein Albumin Crossmatch See Detail 10/21/19 10/22/19 10/22/19 21:42 05:50 06:25 WBC 13.7 H RBC 2.62 L Hgb 7.8 L Hct 23.9 L MCV 91.3 MCH 29.6 MCHC 32.5 RDW 16.4 H Plt Count 117 L D MPV 9.4 Absolute Neuts (auto) 13.0 H Neutrophils % 94.8 H Neutrophils % (Manual) 97.0 H Band Neutrophils % 0.0 Lymphocytes % 3.2 L D Lymphocytes % (Manual) 2.0 L D Monocytes % 1.8 L Monocytes % (Manual) 1 L Eosinophils % 0.0 Eosinophils % (Manual) 0.0 Basophils % 0.2 Basophils % (Manual) 0.0 Myelocytes % (Man) 0 Promyelocytes % (Man) 0 Blast Cells % (Manual) 0 Nucleated RBC % 0 Metamyelocytes 0 Hypochromia 0 Platelet Estimate Decreased Polychromasia 0 Poikilocytosis 0 Basophilic Stippling 1+ Anisocytosis 0 Microcytosis 0 Macrocytosis 0 Anticoagulation Therapy No Result Required. Puncture Site Right radial Patient Temperature No Result Required. ABG pH 7.349 L ABG pCO2 41.50 ABG pO2 99.0 ABG HCO3 22.3 ABG O2 Sat (Measured) 97.2 ABG O2 Content No Result Required. ABG Base Excess -3.1 L Polo Test Positive Patient On Oxygen Yes O2 Delivery Device Vent Oxygen Flow Rate 50% Vent Mode A/c Vent Rate 14 Mechanical Rate Yes PEEP 7.0 Pressure Support Vent 450 Sodium Potassium Chloride Carbon Dioxide Anion Gap BUN Creatinine Est GFR (CKD-EPI)AfAm Est GFR (CKD-EPI)NonAf POC Glucometer 181 Random Glucose Calcium Phosphorus Magnesium Total Bilirubin AST ALT Alkaline Phosphatase Total Protein Albumin Crossmatch 10/22/19 10/22/19 06:25 06:36 WBC RBC Hgb Hct MCV MCH MCHC RDW Plt Count MPV Absolute Neuts (auto) Neutrophils % Neutrophils % (Manual) Band Neutrophils % Lymphocytes % Lymphocytes % (Manual) Monocytes % Monocytes % (Manual) Eosinophils % Eosinophils % (Manual) Basophils % Basophils % (Manual) Myelocytes % (Man) Promyelocytes % (Man) Blast Cells % (Manual) Nucleated RBC % Metamyelocytes Hypochromia Platelet Estimate Polychromasia Poikilocytosis Basophilic Stippling Anisocytosis Microcytosis Macrocytosis Anticoagulation Therapy Puncture Site Patient Temperature ABG pH ABG pCO2 ABG pO2 ABG HCO3 ABG O2 Sat (Measured) ABG O2 Content ABG Base Excess Polo Test Patient On Oxygen O2 Delivery Device Oxygen Flow Rate Vent Mode Vent Rate Mechanical Rate PEEP Pressure Support Vent Sodium 142 Potassium 4.0 Chloride 111 H Carbon Dioxide 26 Anion Gap 5 L BUN 29.6 H Creatinine 0.5 L Est GFR (CKD-EPI)AfAm 121.15 Est GFR (CKD-EPI)NonAf 104.53 POC Glucometer 166 Random Glucose 160 H Calcium 6.6 L* Phosphorus 2.2 L Magnesium 2.0 Total Bilirubin 0.6 AST 23 ALT 25 Alkaline Phosphatase 63 Total Protein 4.1 L Albumin 1.3 L Crossmatch Active Medications Generic Name Dose Route Start Last Admin Trade Name Freq PRN Reason Stop Dose Admin Acetaminophen 650 mg 10/06/19 00:25 10/13/19 17:17 Tylenol - PO 650 mg Q6H PRN Administration FEVER Albuterol Sulfate 2 puff 10/06/19 00:25 Ventolin Hfa Inhaler - IH Q4H PRN SHORT OF BREATH/WHEEZING Apixaban 5 mg 10/06/19 10:00 10/22/19 09:35 Eliquis - PO 5 mg BID MAGI Administration Atorvastatin Calcium 40 mg 10/06/19 22:00 10/21/19 21:38 Lipitor - PO 40 mg HS MAGI Administration Banana Based Medical Food 1 packet 10/20/19 22:00 10/22/19 06:32 Banatrol Plus Powder Packet PO 1 packet TID MAGI Administration Chlorhexidine Gluconate 1 applic 10/06/19 22:00 10/21/19 21:38 Hibiclens For Decolonization - TP 1 applic HS [facility]I Administration Propofol 1,000,000 mcg in 100 mls @ 11.97 mls/hr 10/11/19 14:30 10/22/19 01:41 Diprivan - IVPB 35.09 mcg/kg/min TITR MAGI 14 mls/hr Administration Protocol 30 MCG/KG/MIN Norepinephrine Bitartrate 8,000 mcg in 500 mls @ 18.75 mls/hr 10/18/19 21:15 10/21/19 21:35 Levophed Bag IVPB 4 mcg/min TITR MAGI 15 mls/hr Administration Protocol 5 MCG/MIN Sodium Chloride 1,000 mls @ 75 mls/hr 10/19/19 12:30 10/21/19 17:05 Normal Saline - IV Not Given ASDIR MAGI Fentanyl 500 mcg in 100 mls @ 10 mls/hr 10/20/19 12:45 10/22/19 01:41 Sublimaze Ivpb IVPB 100 mcg/hr TITR MAGI 20 mls/hr Titration Protocol 50 MCG/HR Cefepime HCl 1 gm/ Dextrose 100 mls @ 100 mls/hr 10/22/19 08:00 10/22/19 09:35 IVPB 100 mls/hr Q8H-IV [facility]I Administration Protocol Insulin Aspart 1 vial 10/15/19 11:15 10/22/19 08:00 Novolog Vial Sliding Scale - SQ 2 units TIDAC MAGI Administration Protocol Insulin Detemir 15 units 10/17/19 10:24 10/21/19 22:40 Levemir Vial SQ 15 units HS [facility]I Administration Methylprednisolone Sodium Succinate 30 mg 10/13/19 22:00 10/22/19 09:35 Solu-Medrol - IVPUSH 30 mg BID MAGI Administration Metoprolol Tartrate 5 mg 10/12/19 21:13 10/17/19 09:25 Lopressor Injection - IVPUSH 5 mg Q4H PRN Administration TACHYCARDIA Mirtazapine 15 mg 10/06/19 22:00 10/21/19 21:38 Remeron - PO Not Given HS MAGI Pantoprazole Sodium 40 mg 10/06/19 11:15 10/22/19 09:35 Protonix Iv IVPUSH 40 mg DAILY [facility] Administration Sotalol HCl 80 mg 10/10/19 22:30 10/22/19 09:35 Betapace - PO 80 mg BID MAGI Administration ASSESSMENT/PLAN: 78 yo male DNR with pmh afib, angina, chf, htn, gi bleed, recent admission for covid, afib, and acs in ICU for acute hypoxic resp failure to possible covid pneumonitis vs ARDS Neuro #Acute Metabolic Encephalopathy -Pt sedated on propofol and fentanyl trying to wean off -Daily weaning trials -Held mirtazapine for depression Cardiovascular #Afib w/ RVR #Hx of CHF #CAD s/p CABG #Aortic Stenosis s/p AVR #HTN/HLD -Pt on levo 6mg weaning off maintain MAP >65 -Eliquis 5mg bid -Continue Sotalol 80 mg PO BID with caution with close monitoring of QTc. Pt QTc today was below 500 -Cont Atorvastatin 40mg QD -Pt periodically on Lopressor 5 mg IVP PRN for rate control -may utilize intravenous Cardizem therapy with caution as needed hemodynamics permitting for management of recurrent arrhythmia Pulm #Acute Hypoxic Respiratory Failure 2/2 possible Covid pneumonitis vs. ARDS -s/p intubation on 10/04 -Solumedrol 30 mg IV BID (started 10/12 will wean 14 days to 30mg QD so 10/24) -Titrate FiO2, PEEP to keep SpO2 >90% -ABG today:pH 7.344 -Pt vent settings were increased due to emesis and desaturation one day prior RR 14, tidal volume 450, PEEP 7, FiO2 60%, pplat20. If PPlat <20 will start weaning off sedation. -Sedate for vent synchrony ID #Suspected COVID Pneumonia #ARDS -Cefepime started for resistant klebsiella (10/20) -ID consult appreciated - CXR showed worsening congestive findings - Pt has WBC of 13.7 downtrending cont diarrhea Cdif came back negative so D/c vancomycin Renal - Pt renal function elevated. Intake and outake low. - Pt was started back on maintenance fluids 75 cc/hour -Monitor I/O's, Cr and electrolytes - Pt was started on lasix 40 today and possibly second dose if MAP is stable. Heme #Anemia, w/ hx of GI bleed -Stool occult negative - Hgb 7.8 Will continue to monitor and not transfuse due to volume overload. GI #Abd Distension/Diarrhea #H/o of GI Bleed -Still with diarrhea, no acute bleeding seen -KUB unremarkable -Protonix 40 IV QD - pt also had an episode of emesis this morning and through the night so feeds were stopped Endo #Hyperglycemia -Levemir 15U HS -BGM/ISS Q6H LTD -Smiley 10/04 -Intubation 10/04 -RIJ 10/20 Prophylaxis - DVT- SCD/ eliquis - GI- protonix Dispo -Cont to monitor in ICU Visit type - Emergency Visit Emergency Visit: Yes ED Registration Date: 09/23/19 Care time: The patient presented to the Emergency Department on the above date and was hospitalized for further evaluation of their emergent condition. - New Patient This patient is new to me today: No - Critical Care Critical Care patient: Yes Total Critical Care Time (in minutes): 36 Critical Care Statement: The care of this patient involved high complexity decision making to prevent further life threatening deterioration of the patient's condition and/or to evaluate & treat vital organ system(s) failure or risk of failure. - Medication Review Med list reviewed for High Risk Meds patients 65 and older: Yes ATTENDING PHYSICIAN STATEMENT I saw and evaluated the patient. I reviewed the resident's note and discussed the case with the resident. I agree with the resident's findings and plan as documented. SUBJECTIVE: OBJECTIVE: ASSESSMENT AND PLAN:
--- NOTE | 2019-10-22 11:25 | PN ---
Teaching Attending Note Name of Resident: Rubin Valdes ATTENDING PHYSICIAN STATEMENT I saw and evaluated the patient. I reviewed the resident's note and discussed the case with the resident. I agree with the resident's findings and plan as documented. SUBJECTIVE: Pt seen and examined in the ICU. Remains intubated, sedated off pressors. Vented on volume assist control with 50% FiO2, PEEP 5. Pplat 20. Vomiting overnight and this AM. OBJECTIVE: Vital Signs Period Temp Pulse Resp BP Sys/Amador Pulse Ox Last 24 Hr 97.3 F-98.1 F 53-77 12-22 100-152/46-68 93-100 Intake & Output 10/19/19 10/20/19 10/21/19 10/22/19 23:59 23:59 23:59 23:59 Intake Total 5945.8 4507.8 4094.9 1344 Output Total 2650 2000 1200 Balance 3295.8 2507.8 2894.9 1344 Weight 74.743 kg 75.3 kg 71.1 kg 80.2 kg Gen: intubated, sedated Heart: RRR Lung: scattered rhonchi Abd: soft, nontender Ext: + edema CBC, BMP 10/22/19 06:25 10/22/19 06:25 Active Medications Acetaminophen (Tylenol -) 650 mg PO Q6H PRN PRN Reason: FEVER Last Admin: 10/13/19 17:17 Dose: 650 mg Documented by: Albuterol Sulfate (Ventolin Hfa Inhaler -) 2 puff IH Q4H PRN PRN Reason: SHORT OF BREATH/WHEEZING Apixaban (Eliquis -) 5 mg PO BID [facility] Last Admin: 10/22/19 09:35 Dose: 5 mg Documented by: Atorvastatin Calcium (Lipitor -) 40 mg PO [facility] Last Admin: 10/21/19 21:38 Dose: 40 mg Documented by: Banana Based Medical Food (Banatrol Plus Powder Packet) 1 packet PO TID [facility] Last Admin: 10/22/19 06:32 Dose: 1 packet Documented by: Chlorhexidine Gluconate (Hibiclens For Decolonization -) 1 applic TP [facility] Last Admin: 10/21/19 21:38 Dose: 1 applic Documented by: Propofol (Diprivan -) 1,000,000 mcg in 100 mls @ 11.97 mls/hr IVPB TITR [facility]; Protocol Last Admin: 10/22/19 01:41 Dose: 35.09 mcg/kg/min, 14 mls/hr Documented by: Norepinephrine Bitartrate (Levophed Bag) 8,000 mcg in 500 mls @ 18.75 mls/hr IVPB TITR [facility]; Protocol Last Admin: 10/21/19 21:35 Dose: 4 mcg/min, 15 mls/hr Documented by: Sodium Chloride (Normal Saline -) 1,000 mls @ 75 mls/hr IV ASDIR [facility] Last Admin: 10/21/19 17:05 Dose: Not Given Documented by: Fentanyl (Sublimaze Ivpb) 500 mcg in 100 mls @ 10 mls/hr IVPB TITR [facility]; Protocol Last Titration: 10/22/19 01:41 Dose: 100 mcg/hr, 20 mls/hr Documented by: Cefepime HCl 1 gm/ Dextrose 100 mls @ 100 mls/hr IVPB Q8H-IV [facility]; Protocol Last Admin: 10/22/19 09:35 Dose: 100 mls/hr Documented by: Insulin Aspart (Novolog Vial Sliding Scale -) 1 vial SQ TIDAC [facility]; Protocol Last Admin: 10/22/19 08:00 Dose: 2 units Documented by: Insulin Detemir (Levemir Vial) 15 units SQ HS [facility] Last Admin: 10/21/19 22:40 Dose: 15 units Documented by: Methylprednisolone Sodium Succinate (Solu-Medrol -) 30 mg IVPUSH BID [facility] Last Admin: 10/22/19 09:35 Dose: 30 mg Documented by: Metoprolol Tartrate (Lopressor Injection -) 5 mg IVPUSH Q4H PRN PRN Reason: TACHYCARDIA Last Admin: 10/17/19 09:25 Dose: 5 mg Documented by: Mirtazapine (Remeron -) 15 mg PO HS [facility] Last Admin: 10/21/19 21:38 Dose: Not Given Documented by: Pantoprazole Sodium (Protonix Iv) 40 mg IVPUSH DAILY [facility] Last Admin: 10/22/19 09:35 Dose: 40 mg Documented by: Sotalol HCl (Betapace -) 80 mg PO BID [facility] Last Admin: 10/22/19 09:35 Dose: 80 mg Documented by: ASSESSMENT AND PLAN: Acute Hypoxic Respiratory Failure Suspected COVID19 Pneumonia ARDS Sepsis Acute Kidney Injury Paroxysmal Atrial Fibrillation CAD s/p CABG Aortic Stenosis s/p AVR HTN Hypercholesterolemia Anemia - check KUB - continue antibiotics - off pressors, maintain MAP >65 - monitor urine output, creatinine - taper steroids - continue anticoagulation - rate control - titrate FiO2, PEEP to keep SpO2 >90% - monitor Pplat - sedate for vent synchrony - hold enteral feeds - DVT/GI prophylaxis - continue ICU monitoring critical care time spent in reviewing chart, evaluating patient and formulating plan 35 min
[2019-10-22] MEDS: SODIUM CHLORIDE 1,000 ML IV SCH (12:26)
[2019-10-22] MEDS: FENTANYL IVPB 500 MCG/100 ML BAG IVPB SCH ×2 (14:28→20:34)
--- NOTE | 2019-10-22 14:40 | PN ---
Progress Note, Physician History of Present Illness: pt seen/ examined in icu chart reviewed intubated/sedated off pressors All f/u noted - Current Medication List Current Medications: Active Medications Acetaminophen (Tylenol -) 650 mg PO Q6H PRN PRN Reason: FEVER Last Admin: 10/13/19 17:17 Dose: 650 mg Documented by: Albuterol Sulfate (Ventolin Hfa Inhaler -) 2 puff IH Q4H PRN PRN Reason: SHORT OF BREATH/WHEEZING Apixaban (Eliquis -) 5 mg PO BID [facility] Last Admin: 10/22/19 09:35 Dose: 5 mg Documented by: Atorvastatin Calcium (Lipitor -) 40 mg PO HS [facility] Last Admin: 10/21/19 21:38 Dose: 40 mg Documented by: Banana Based Medical Food (Banatrol Plus Powder Packet) 1 packet PO TID [facility] Last Admin: 10/22/19 14:27 Dose: 1 packet Documented by: Chlorhexidine Gluconate (Hibiclens For Decolonization -) 1 applic TP HS [facility] Last Admin: 10/21/19 21:38 Dose: 1 applic Documented by: Propofol (Diprivan -) 1,000,000 mcg in 100 mls @ 11.97 mls/hr IVPB TITR [facility]; Protocol Last Admin: 10/22/19 14:27 Dose: 35.09 mcg/kg/min, 14 mls/hr Documented by: Norepinephrine Bitartrate (Levophed Bag) 8,000 mcg in 500 mls @ 18.75 mls/hr IVPB TITR [facility]; Protocol Last Admin: 10/21/19 21:35 Dose: 4 mcg/min, 15 mls/hr Documented by: Sodium Chloride (Normal Saline -) 1,000 mls @ 75 mls/hr IV ASDIR [facility] Last Admin: 10/22/19 12:26 Dose: 75 mls/hr Documented by: Fentanyl (Sublimaze Ivpb) 500 mcg in 100 mls @ 10 mls/hr IVPB TITR [facility]; Protocol Last Admin: 10/22/19 14:28 Dose: 100 mcg/hr, 20 mls/hr Documented by: Cefepime HCl 1 gm/ Dextrose 100 mls @ 100 mls/hr IVPB Q8H-IV [facility]; Protocol Last Admin: 10/22/19 09:35 Dose: 100 mls/hr Documented by: Insulin Aspart (Novolog Vial Sliding Scale -) 1 vial SQ TIDAC [facility]; Protocol Last Admin: 10/22/19 14:26 Dose: Not Given Documented by: Insulin Detemir (Levemir Vial) 15 units SQ [facility] Last Admin: 10/21/19 22:40 Dose: 15 units Documented by: Methylprednisolone Sodium Succinate (Solu-Medrol -) 30 mg IVPUSH BID [facility] Last Admin: 10/22/19 09:35 Dose: 30 mg Documented by: Metoprolol Tartrate (Lopressor Injection -) 5 mg IVPUSH Q4H PRN PRN Reason: TACHYCARDIA Last Admin: 10/17/19 09:25 Dose: 5 mg Documented by: Mirtazapine (Remeron -) 15 mg PO [facility] Last Admin: 10/21/19 21:38 Dose: Not Given Documented by: Pantoprazole Sodium (Protonix Iv) 40 mg IVPUSH DAILY [facility] Last Admin: 10/22/19 09:35 Dose: 40 mg Documented by: Sotalol HCl (Betapace -) 80 mg PO BID [facility] Last Admin: 10/22/19 09:35 Dose: 80 mg Documented by: - Objective Vital Signs: Vital Signs Temperature 97.8 F 10/22/19 10:00 Pulse Rate 68 10/22/19 12:00 Respiratory Rate 15 10/22/19 12:10 Blood Pressure 103/50 L 10/22/19 12:00 O2 Sat by Pulse Oximetry (%) 97 10/22/19 12:30 Cardiovascular: Yes: Regular Rate and Rhythm Respiratory: Yes: Diminished Gastrointestinal: Yes: Soft Labs: CBC, BMP 10/22/19 06:25 10/22/19 06:25 INR, PTT INR 1.52 (0.83-1.09) H 10/21/19 05:40 Fibrinogen > 500.0 mg/dL (238-498) H 10/08/19 06:30 Problem List - Problems (1) Acute respiratory failure with hypoxia Code(s): J96.01 - ACUTE RESPIRATORY FAILURE WITH HYPOXIA (2) Atrial fibrillation Code(s): I48.91 - UNSPECIFIED ATRIAL FIBRILLATION (3) CAD (coronary artery disease) Code(s): I25.10 - ATHSCL HEART DISEASE OF [place] CORONARY ARTERY W/O ANG PCTRS Qualifiers: Coronary Disease-Associated Artery/Lesion type: [place] artery [place] vs. transplanted heart: [place] heart Associated angina: without angina Qualified Code(s): I25.10 - Atherosclerotic heart disease of [place] coronary artery without angina pectoris (4) History of depression Code(s): Z86.59 - PERSONAL HISTORY OF OTHER MENTAL AND BEHAVIORAL DISORDERS (5) S/P AVR (aortic valve replacement) Code(s): Z95.2 - PRESENCE OF PROSTHETIC HEART VALVE (6) Suspected 2019 novel coronavirus infection Code(s): Z20.828 - CONTACT W AND EXPOSURE TO [facility] VIRAL COMMUNICABLE DISEASES Assessment/Plan acute respiratory failure-- Intubated/ sedated pneumonitis CHF decompensation Aflutter-- back to sinus-s/p Cardioversion -- COVID negative -- on stress steroids-- tasper --pressor support --broad spectrum antibiotics weaning as tolerated Patient is DNR Continue present care Monitor Bgm Critical care time--approximately 30 minutes condition gaurded Will continue to follow.
[2019-10-22] MEDS: DEXTROSE 5%-0.45% SALINE 1,000 ML IV SCH (18:51)
[2019-10-22] MEDS: NOREPINEPHRINE BITARTRATE 8,000 MCG/500 ML BAG IVPB SCH ×2 (20:33→21:33)
[2019-10-22] MEDS ORDERED: DEXTROSE 50%-WATER 25 GM/50 ML DISP.SYRIN ONE (21:15)
[2019-10-22] MEDS: INSULIN (LEVEMIR) 100 UNITS/ML UNITS SQ SCH (21:27)
[2019-10-22] MEDS: ATORVASTATIN CA 40 MG TABLET (FP) PO SCH (21:33)
[2019-10-22] MEDS: MIRTAZAPINE 15 MG TABLET (FP) PO SCH (21:33)
[2019-10-22] MEDS: CHLORHEXIDINE GLUCONATE 4% CLEANSER FOR DECOLONIZATION TP SCH (21:33)
[2019-10-22] MEDS: NOREPINEPHRINE D5W PREMIX 16,000 MCG/500 ML BAG IVPB SCH (22:00)
--- NOTE | 2019-10-22 23:22 | PN ---
Progress Note, Physician Chief Complaint: LETHARGIC SEDATED ON VENTILATOR AFEBRILE WBC IMPROVED + LOOSE STOOL C DIFF(-) CXR B/L INFILTRATES SPUTUM KLEBSIELLA - Current Medication List Current Medications: Active Medications Acetaminophen (Tylenol -) 650 mg PO Q6H PRN PRN Reason: FEVER Last Admin: 10/13/19 17:17 Dose: 650 mg Documented by: Albuterol Sulfate (Ventolin Hfa Inhaler -) 2 puff IH Q4H PRN PRN Reason: SHORT OF BREATH/WHEEZING Apixaban (Eliquis -) 5 mg PO BID [facility] Last Admin: 10/22/19 21:33 Dose: 5 mg Documented by: Atorvastatin Calcium (Lipitor -) 40 mg PO HS [facility] Last Admin: 10/22/19 21:33 Dose: 40 mg Documented by: Banana Based Medical Food (Banatrol Plus Powder Packet) 1 packet PO TID [facility] Last Admin: 10/22/19 21:33 Dose: 1 packet Documented by: Chlorhexidine Gluconate (Hibiclens For Decolonization -) 1 applic TP HS [facility] Last Admin: 10/22/19 21:33 Dose: 1 applic Documented by: Propofol (Diprivan -) 1,000,000 mcg in 100 mls @ 11.97 mls/hr IVPB TITR [facility]; Protocol Last Admin: 10/22/19 20:33 Dose: 35 mcg/kg/min, 13.965 mls/hr Documented by: Fentanyl (Sublimaze Ivpb) 500 mcg in 100 mls @ 10 mls/hr IVPB TITR [facility]; Protocol Last Admin: 10/22/19 20:34 Dose: 100 mcg/hr, 20 mls/hr Documented by: Cefepime HCl 1 gm/ Dextrose 100 mls @ 100 mls/hr IVPB Q8H-IV [facility]; Protocol Last Admin: 10/22/19 17:25 Dose: 100 mls/hr Documented by: Dextrose/Sodium Chloride (D5-1/2ns -) 1,000 mls @ 75 mls/hr IV ASDIR [facility] Last Admin: 10/22/19 18:51 Dose: 75 mls/hr Documented by: Norepinephrine Bitartrate (Levophed Bag) 16,000 mcg in 500 mls @ 9.375 mls/hr IVPB TITR [facility]; Protocol Last Admin: 10/22/19 22:00 Dose: 7 mcg/min, 13.125 mls/hr Documented by: Insulin Aspart (Novolog Vial Sliding Scale -) 1 vial SQ TIDAC [facility]; Protocol Last Admin: 10/22/19 17:25 Dose: Not Given Documented by: Insulin Detemir (Levemir Vial) 15 units SQ [facility] Last Admin: 10/22/19 21:27 Dose: Not Given Documented by: Methylprednisolone Sodium Succinate (Solu-Medrol -) 30 mg IVPUSH BID [facility] Last Admin: 10/22/19 21:33 Dose: 30 mg Documented by: Metoprolol Tartrate (Lopressor Injection -) 5 mg IVPUSH Q4H PRN PRN Reason: TACHYCARDIA Last Admin: 10/17/19 09:25 Dose: 5 mg Documented by: Mirtazapine (Remeron -) 15 mg PO HS [facility] Last Admin: 10/22/19 21:33 Dose: 15 mg Documented by: Pantoprazole Sodium (Protonix Iv) 40 mg IVPUSH DAILY [facility] Last Admin: 10/22/19 09:35 Dose: 40 mg Documented by: Sotalol HCl (Betapace -) 80 mg PO BID [facility] Last Admin: 10/22/19 22:01 Dose: Not Given Documented by: - Objective Vital Signs: Vital Signs Temperature 98 F 10/22/19 22:00 Pulse Rate 95 H 10/22/19 22:00 Respiratory Rate 18 10/22/19 22:00 Blood Pressure 98/51 L 10/22/19 22:00 O2 Sat by Pulse Oximetry (%) 92 L 10/22/19 22:00 Constitutional: Yes: No Distress Eyes: Yes: Conjunctiva Clear Cardiovascular: Yes: Regular Rate and Rhythm, S1, S2 Respiratory: Yes: Mechanically Ventilated Labs: CBC, BMP 10/22/19 06:25 10/22/19 06:25 INR, PTT INR 1.52 (0.83-1.09) H 10/21/19 05:40 Fibrinogen > 500.0 mg/dL (238-498) H 10/08/19 06:30 Assessment/Plan BILATERAL INFILTRATES ? PNEUMONITIS ? CHF RESP FAILURE S/P TAVR COVID -19 (-) X5 CONTINUE CEFEPIM VENTILATORY SUPPORT
[2019-10-23] MEDS: CEFEPIME 1 GM in DEXTROSE 5%-WATER 100 ML IVPB SCH ×3 (02:08→17:29)
[2019-10-23] MEDS: INSULIN SLIDING SCALE (NOVOLOG) 1 VIAL SQ SCH ×3 (06:02→17:28)
[2019-10-23] MEDS: BANATROL PLUS POWDER PACKET PO SCH ×3 (06:02→21:38)
[2019-10-23 06:13] LABS: ARTERIAL BLD GAS O2 SATURATION 92.5 mmHg (95-98); ARTERIAL BLOOD GAS BASE EXCESS -8.8 mmol/L (-2-2); ARTERIAL BLOOD GAS PO2 83.5 mmHg (80-100)
[2019-10-23 06:28] LABS: ALLENS TEST POSITIVE
[2019-10-23 06:38] LABS: ARTERIAL BLOOD GAS pH 7.138 (7.350-7.450)
[2019-10-23 06:39] LABS: VENT MODE A/C; VENT RATE 14
[2019-10-23 07:17] LABS: BASO % 0.1 % (0-2.0); HEMATOCRIT 27.6 % (35.4-49); HEMOGLOBIN 8.8 GM/dL (11.7-16.9); LYMPH % 2.2 % (8-40); MCH 29.6 pg (25.7-33.7); MCHC 31.8 g/dl (32.0-35.9); MEAN CELL VOLUME 93.2 fl (80-96); MEAN PLT VOLUME 9.2 fl (7.5-11.1); MONO % 0.7 % (3.8-10.2); PLATELET COUNT 112 K/MM3 (134-434); RBC 2.97 M/mm3 (4.00-5.60); RDW 16.4 % (11.9-15.9)
[2019-10-23 07:29] LABS: ALBUMIN 1.4 g/dl (3.4-5.0); BILIRUBIN,TOTAL 0.8 mg/dL (0.2-1); BLOOD UREA NITROGEN 30.6 mg/dL (7-18); CREATININE 0.7 mg/dL (0.55-1.3); MAGNESIUM 1.8 mg/dL (1.8-2.4); PHOSPHOROUS 3.9 mg/dL (2.5-4.9); TOT PROT 4.8 g/dl (6.4-8.2)
[2019-10-23 07:36] LABS: CALCIUM 6.5 mg/dL (8.5-10.1)
[2019-10-23] MEDS ORDERED: FENTANYL IVPB 500 MCG/100 ML BAG IVPB ONE (09:13)
[2019-10-23] MEDS ORDERED: CEFEPIME HCL 1 GM VIAL (RESTRICTED TO ID) ONE ×3 (09:13→21:36)
[2019-10-23] MEDS ORDERED: DEXTROSE 5%-WATER 100 ML IVPB ONE ×3 (09:14→21:36)
[2019-10-23] MEDS: FENTANYL IVPB 500 MCG/100 ML BAG IVPB SCH ×4 (09:17→22:00)
[2019-10-23] MEDS: PANTOPRAZOLE SODIUM 40 MG VIAL IVPUSH SCH (09:18)
[2019-10-23] MEDS: methylPREDNISolone NA SUCC 40 MG/1 ML VIAL IVPUSH SCH ×2 (09:19→21:38)
[2019-10-23] MEDS: SOTALOL HCL 80 MG TABLET (FP) PO SCH ×2 (09:21→21:38)
[2019-10-23] MEDS: APIXABAN 5 MG TABLET PO SCH ×2 (09:29→21:38)
--- NOTE | 2019-10-23 10:13 | PN ---
Progress Note (short form) - Note Progress Note: fremains intubated on cefepime, levophed and steroids Vital Signs Period Temp Pulse Resp BP Sys/Amador Pulse Ox Last 24 Hr 97.1 F-98.3 F 60-110 14-31 85-130/40-60 90-100 cor-rrr lungs- decreased bs at bases abd soft,nt ext +edema CBC, BMP 10/23/19 06:00 10/23/19 06:00 Microbiology 10/18/19 21:30 Blood - Peripheral Venous Blood Culture - Preliminary NO GROWTH OBTAINED AFTER 96 HOURS, INCUBATION TO CONTINUE FOR 1 DAYS. 10/18/19 21:30 Blood - Peripheral Venous Blood Culture - Preliminary NO GROWTH OBTAINED AFTER 96 HOURS, INCUBATION TO CONTINUE FOR 1 DAYS. 10/19/19 09:10 Sputum - Endotrachea Suction/Ventilator Gram Stain - Final 10/19/19 09:10 Sputum - Endotrachea Suction/Ventilator Sputum Culture - Final Klebsiella Pneumoniae Enterobacter Aerogenes 10/19/19 15:07 Urine - Urine - Catheterized Urine Culture - Final Yeast Like Organism 10/19/19 17:00 Stool Clostridioides difficile Antigen - Final 10/19/19 17:00 Stool Clostridioides difficile Toxin Assay - Final 10/12/19 18:00 Blood - Peripheral Venous Blood Culture - Final NO GROWTH AFTER 5 DAYS INCUBATION 10/12/19 18:00 Blood - Peripheral Venous Blood Culture - Final NO GROWTH AFTER 5 DAYS INCUBATION 10/14/19 09:30 Sputum - Endotrachea Suction/Ventilator Gram Stain - Final 10/14/19 09:30 Sputum - Endotrachea Suction/Ventilator Sputum Culture - Final Klebsiella Pneumoniae 10/08/19 16:00 Sputum - Endotrachea Suction/Ventilator Gram Stain - Final 10/08/19 16:00 Sputum - Endotrachea Suction/Ventilator Sputum Culture - Final Klebsiella Pneumoniae Yeast Like Organism 10/06/19 05:55 Blood - Peripheral Venous Blood Culture - Final NO GROWTH AFTER 5 DAYS INCUBATION 10/06/19 05:40 Blood - Peripheral Venous Blood Culture - Final NO GROWTH AFTER 5 DAYS INCUBATION 10/06/19 20:03 Urine - Urine Smiley Legionella Antigen - Final 10/06/19 20:03 Urine - Urine Smiley Streptococcus pneumoniae Antigen (M - Final 10/06/19 06:00 Urine - Urine Smiley Urine Culture - Final NO GROWTH OBTAINED 09/24/19 10:45 Blood - Peripheral Venous Blood Culture - Final NO GROWTH AFTER 5 DAYS INCUBATION 09/24/19 10:40 Blood - Peripheral Venous Blood Culture - Final NO GROWTH AFTER 5 DAYS INCUBATION 09/25/19 12:25 Urine - Urine Clean Catch Legionella Antigen - Final 09/25/19 12:25 Urine - Urine Clean Catch Streptococcus pneumoniae Antigen (M - Final 09/24/19 10:46 Urine - Urine Clean Catch Urine Culture - Final NO GROWTH OBTAINED Active Medications Acetaminophen (Tylenol -) 650 mg PO Q6H PRN PRN Reason: FEVER Last Admin: 10/13/19 17:17 Dose: 650 mg Documented by: Albuterol Sulfate (Ventolin Hfa Inhaler -) 2 puff IH Q4H PRN PRN Reason: SHORT OF BREATH/WHEEZING Apixaban (Eliquis -) 5 mg PO BID [facility] Last Admin: 10/23/19 09:29 Dose: 5 mg Documented by: Atorvastatin Calcium (Lipitor -) 40 mg PO [facility] Last Admin: 10/22/19 21:33 Dose: 40 mg Documented by: Banana Based Medical Food (Banatrol Plus Powder Packet) 1 packet PO TID [facility] Last Admin: 10/23/19 06:02 Dose: 1 packet Documented by: Chlorhexidine Gluconate (Hibiclens For Decolonization -) 1 applic TP [facility] Last Admin: 10/22/19 21:33 Dose: 1 applic Documented by: Propofol (Diprivan -) 1,000,000 mcg in 100 mls @ 11.97 mls/hr IVPB TITR [facility]; Protocol Last Titration: 10/23/19 08:44 Dose: 40 mcg/kg/min, 15.96 mls/hr Documented by: Fentanyl (Sublimaze Ivpb) 500 mcg in 100 mls @ 10 mls/hr IVPB TITR [facility]; Protocol Last Admin: 10/23/19 09:17 Dose: 100 mcg/hr, 20 mls/hr Documented by: Cefepime HCl 1 gm/ Dextrose 100 mls @ 100 mls/hr IVPB Q8H-IV [facility]; Protocol Last Admin: 10/23/19 09:15 Dose: 100 mls/hr Documented by: Dextrose/Sodium Chloride (D5-1/2ns -) 1,000 mls @ 75 mls/hr IV ASDIR [facility] Last Admin: 10/22/19 18:51 Dose: 75 mls/hr Documented by: Norepinephrine Bitartrate (Levophed Bag) 16,000 mcg in 500 mls @ 9.375 mls/hr IVPB TITR [facility]; Protocol Last Titration: 10/23/19 08:17 Dose: 8 mcg/min, 15 mls/hr Documented by: Insulin Aspart (Novolog Vial Sliding Scale -) 1 vial SQ TIDAC [facility]; Protocol Last Admin: 10/23/19 06:02 Dose: Not Given Documented by: Insulin Detemir (Levemir Vial) 15 units SQ HS [facility] Last Admin: 10/22/19 21:27 Dose: Not Given Documented by: Methylprednisolone Sodium Succinate (Solu-Medrol -) 30 mg IVPUSH BID [facility] Last Admin: 10/23/19 09:19 Dose: 30 mg Documented by: Metoprolol Tartrate (Lopressor Injection -) 5 mg IVPUSH Q4H PRN PRN Reason: TACHYCARDIA Last Admin: 10/17/19 09:25 Dose: 5 mg Documented by: Mirtazapine (Remeron -) 15 mg PO HS [facility] Last Admin: 10/22/19 21:33 Dose: 15 mg Documented by: Pantoprazole Sodium (Protonix Iv) 40 mg IVPUSH DAILY [facility] Last Admin: 10/23/19 09:18 Dose: 40 mg Documented by: Sotalol HCl (Betapace -) 80 mg PO BID [facility] Last Admin: 10/23/19 09:21 Dose: Not Given Documented by: cxray bilateral infiltrates a/p BILATERAL INFILTRATES RESP FAILURE s/p TAVR continue cefepime vent management per icu
--- NOTE | 2019-10-23 10:35 | PN ---
Progress Note (short form) - Note Progress Note: remains intubated levophed restarted last night Vital Signs - 24 hr 10/22/19 10/22/19 10/22/19 12:00 12:10 12:30 Temperature Pulse Rate 68 Respiratory 23 H 15 Rate Blood Pressure 103/50 L O2 Sat by Pulse 95 97 97 Oximetry (%) 10/22/19 10/22/19 10/22/19 14:00 16:00 16:10 Temperature 98.0 F Pulse Rate 89 110 H Respiratory 31 H 24 H 27 H Rate Blood Pressure 130/60 114/48 L O2 Sat by Pulse 93 L 97 95 Oximetry (%) 10/22/19 10/22/19 10/22/19 18:00 20:00 20:12 Temperature 98.2 F Pulse Rate 87 89 Respiratory 22 H 21 H 19 Rate Blood Pressure 97/59 L 99/40 L O2 Sat by Pulse 95 98 90 L Oximetry (%) 10/22/19 10/22/19 10/23/19 21:00 22:00 00:00 Temperature 98 F Pulse Rate 95 H 89 Respiratory 21 H 18 14 Rate Blood Pressure 98/51 L 99/55 L O2 Sat by Pulse 98 92 L 91 L Oximetry (%) 10/23/19 10/23/19 10/23/19 00:33 02:00 04:00 Temperature 98.3 F Pulse Rate 69 72 Respiratory 14 14 14 Rate Blood Pressure 98/48 L 103/48 L O2 Sat by Pulse 94 L 94 L 96 Oximetry (%) 10/23/19 10/23/19 10/23/19 04:05 06:00 07:51 Temperature 98.2 F Pulse Rate 65 63 Respiratory 14 14 18 Rate Blood Pressure 97/51 L O2 Sat by Pulse 94 L 98 100 Oximetry (%) 10/23/19 10/23/19 10/23/19 08:00 08:30 09:49 Temperature 97.1 F L Pulse Rate 60 62 Respiratory 18 18 18 Rate Blood Pressure 85/48 L 102/46 L O2 Sat by Pulse 99 100 Oximetry (%) Current Medications Generic Name Dose Route Start Last Admin Trade Name Freq PRN Reason Stop Dose Admin Acetaminophen 650 mg 10/06/19 00:25 10/13/19 17:17 Tylenol - PO 650 mg Q6H PRN Administration FEVER Albuterol Sulfate 2 puff 10/06/19 00:25 Ventolin Hfa Inhaler - IH Q4H PRN SHORT OF BREATH/WHEEZING Apixaban 5 mg 10/06/19 10:00 10/23/19 09:29 Eliquis - PO 5 mg BID [facility] Administration Atorvastatin Calcium 40 mg 10/06/19 22:00 10/22/19 21:33 Lipitor - PO 40 mg HS [facility] Administration Banana Based Medical Food 1 packet 10/20/19 22:00 10/23/19 06:02 Banatrol Plus Powder Packet PO 1 packet TID [facility] Administration Chlorhexidine Gluconate 1 applic 10/06/19 22:00 10/22/19 21:33 Hibiclens For Decolonization - TP 1 applic HS [facility] Administration Propofol 1,000,000 mcg in 100 mls @ 11.97 mls/hr 10/11/19 14:30 10/23/19 08:44 Diprivan - IVPB 40 mcg/kg/min TITR [facility] 15.96 mls/hr Titration Protocol 30 MCG/KG/MIN Fentanyl 500 mcg in 100 mls @ 10 mls/hr 10/20/19 12:45 10/23/19 09:17 Sublimaze Ivpb IVPB 100 mcg/hr TITR [facility] 20 mls/hr Administration Protocol 50 MCG/HR Cefepime HCl 1 gm/ Dextrose 100 mls @ 100 mls/hr 10/22/19 08:00 10/23/19 09:15 IVPB 100 mls/hr Q8H-IV [facility] Administration Protocol Dextrose/Sodium Chloride 1,000 mls @ 75 mls/hr 10/22/19 19:00 10/22/19 18:51 D5-1/2ns - IV 75 mls/hr ASDIR [facility]ES [facility] Administration Norepinephrine Bitartrate 16,000 mcg in 500 mls @ 9.375 mls/hr 10/22/19 21:45 10/23/19 08:17 Levophed Bag IVPB 8 mcg/min TITR [facility] 15 mls/hr Titration Protocol 5 MCG/MIN Insulin Aspart 1 vial 10/15/19 11:15 10/23/19 06:02 Novolog Vial Sliding Scale - SQ Not Given TIDAC [facility]CLUDES [facility] Protocol Insulin Detemir 15 units 10/17/19 10:24 10/22/19 21:27 Levemir Vial SQ Not Given HS [facility] Methylprednisolone Sodium Succinate 30 mg 10/13/19 22:00 10/23/19 09:19 Solu-Medrol - IVPUSH 30 mg BID [facility] Administration Metoprolol Tartrate 5 mg 10/12/19 21:13 10/17/19 09:25 Lopressor Injection - IVPUSH 5 mg Q4H PRN Administration TACHYCARDIA Mirtazapine 15 mg 10/06/19 22:00 10/22/19 21:33 Remeron - PO 15 mg HS [facility] Administration Pantoprazole Sodium 40 mg 10/06/19 11:15 10/23/19 09:18 Protonix Iv IVPUSH 40 mg DAILY [facility] Administration Sotalol HCl 80 mg 10/10/19 22:30 10/23/19 09:21 Betapace - PO Not Given BID COUNT INCLUDES [facility] Laboratory Results - last 24 hr 10/22/19 10/22/19 10/22/19 12:30 17:20 21:19 WBC RBC Hgb Hct MCV MCH MCHC RDW Plt Count MPV Absolute Neuts (auto) Neutrophils % Lymphocytes % Monocytes % Eosinophils % Basophils % Nucleated RBC % Anticoagulation Therapy Puncture Site Patient Temperature ABG pH ABG pCO2 ABG pO2 ABG HCO3 ABG O2 Sat (Measured) ABG O2 Content ABG Base Excess Polo Test Patient On Oxygen O2 Delivery Device Oxygen Flow Rate Vent Mode Vent Rate Mechanical Rate PEEP Pressure Support Vent Sodium Potassium Chloride Carbon Dioxide Anion Gap BUN Creatinine Est GFR (CKD-EPI)AfAm Est GFR (CKD-EPI)NonAf POC Glucometer 137 76 66 Random Glucose Calcium Phosphorus Magnesium Total Bilirubin AST ALT Alkaline Phosphatase Total Protein Albumin 10/22/19 10/23/19 10/23/19 23:17 05:35 05:59 WBC RBC Hgb Hct MCV MCH MCHC RDW Plt Count MPV Absolute Neuts (auto) Neutrophils % Lymphocytes % Monocytes % Eosinophils % Basophils % Nucleated RBC % Anticoagulation Therapy No Result Required. Puncture Site Right radial Patient Temperature No Result Required. ABG pH 7.138 L* ABG pCO2 60.90 H ABG pO2 83.5 ABG HCO3 20.2 L ABG O2 Sat (Measured) 92.5 L ABG O2 Content No Result Required. ABG Base Excess -8.8 L Polo Test Positive Patient On Oxygen Yes O2 Delivery Device Vent Oxygen Flow Rate 80% Vent Mode A/c Vent Rate 14 Mechanical Rate Yes PEEP 7.0 Pressure Support Vent 450 Sodium Potassium Chloride Carbon Dioxide Anion Gap BUN Creatinine Est GFR (CKD-EPI)AfAm Est GFR (CKD-EPI)NonAf POC Glucometer 85 144 Random Glucose Calcium Phosphorus Magnesium Total Bilirubin AST ALT Alkaline Phosphatase Total Protein Albumin 10/23/19 10/23/19 06:00 06:00 WBC 20.0 H RBC 2.97 L Hgb 8.8 L Hct 27.6 L D MCV 93.2 MCH 29.6 MCHC 31.8 L RDW 16.4 H Plt Count 112 L MPV 9.2 Absolute Neuts (auto) 19.4 H Neutrophils % 97.0 H Lymphocytes % 2.2 L D Monocytes % 0.7 L Eosinophils % 0.0 Basophils % 0.1 Nucleated RBC % 0 Anticoagulation Therapy Puncture Site Patient Temperature ABG pH ABG pCO2 ABG pO2 ABG HCO3 ABG O2 Sat (Measured) ABG O2 Content ABG Base Excess Polo Test Patient On Oxygen O2 Delivery Device Oxygen Flow Rate Vent Mode Vent Rate Mechanical Rate PEEP Pressure Support Vent Sodium 140 Potassium 4.0 Chloride 110 H Carbon Dioxide 23 Anion Gap 6 L BUN 30.6 H Creatinine 0.7 Est GFR (CKD-EPI)AfAm 105.50 Est GFR (CKD-EPI)NonAf 91.03 POC Glucometer Random Glucose 138 H Calcium 6.5 L* Phosphorus 3.9 Magnesium 1.8 Total Bilirubin 0.8 AST 30 ALT 28 Alkaline Phosphatase 65 Total Protein 4.8 L Albumin 1.4 L S1 S2 Irregular Lungs decreased breath sounds Abd- soft, NT No edema diarrhea+ A/P acute respiratory failure Fever, pneumonitis CHF decompensation Aflutter leucocytosis suspected COVID -- though tests were negative anemia- s/p PRBC -- ICU management --s/p cardioversion -- rate control -- continue with meds --broad spectrum antibiotics -- prognosis is guarded -- on pressor support -- check cdiff stool-- negative -- family opting for compassionate wean per palliative RN note patient is DNR Problem List - Problems (1) Acute on chronic diastolic (congestive) heart failure Code(s): I50.33 - ACUTE ON CHRONIC DIASTOLIC (CONGESTIVE) HEART FAILURE (2) Acute respiratory failure with hypoxia Code(s): J96.01 - ACUTE RESPIRATORY FAILURE WITH HYPOXIA (3) Atrial fibrillation Code(s): I48.91 - UNSPECIFIED ATRIAL FIBRILLATION (4) GERD (gastroesophageal reflux disease) Code(s): K21.9 - GASTRO-ESOPHAGEAL REFLUX DISEASE WITHOUT ESOPHAGITIS (5) HTN (hypertension) Code(s): I10 - ESSENTIAL (PRIMARY) HYPERTENSION Qualifiers: Hypertension type: essential hypertension Qualified Code(s): I10 - Essential (primary) hypertension (6) Suspected 2019 novel coronavirus infection Code(s): Z20.828 - CONTACT W AND EXPOSURE TO [place] VIRAL COMMUNICABLE DISEASES
--- NOTE | 2019-10-23 11:03 | PN ---
Progress Note, Physician History of Present Illness: This is a 78 y/o male with a significant medical history of Afib (on Eliquis), Angina, CHF, HTN, HLD, GI Bleed, recent admission 09/19-09/21 Suspected Covid, Afibrillation, stabalized and discharged. Who presents to the ED with difficulty breathing. Patient reports having progressive SOB while using O2. Patient denies fever, chills, dizziness, SPEARS, CP , palpitations, AP, N/V/D, constipation, dy suria. Patient denies sick contacts or recent travel. 09/23:I was called by home nurse yesterday that pt with tachycardia and SOB; Here febrile today; CT showed diffuse bilat pulmonary changes c/w Covid, slightly improved only ; new Covid test pending; elevated ferritin and CRP; normal trop; elevated BNP - Current Medication List Current Medications: Active Medications Acetaminophen (Tylenol -) 650 mg PO Q6H PRN PRN Reason: FEVER Last Admin: 10/13/19 17:17 Dose: 650 mg Documented by: Albuterol Sulfate (Ventolin Hfa Inhaler -) 2 puff IH Q4H PRN PRN Reason: SHORT OF BREATH/WHEEZING Apixaban (Eliquis -) 5 mg PO BID [facility] Last Admin: 10/23/19 09:29 Dose: 5 mg Documented by: Atorvastatin Calcium (Lipitor -) 40 mg PO [facility] Last Admin: 10/22/19 21:33 Dose: 40 mg Documented by: Banana Based Medical Food (Banatrol Plus Powder Packet) 1 packet PO TID [facility] Last Admin: 10/23/19 06:02 Dose: 1 packet Documented by: Chlorhexidine Gluconate (Hibiclens For Decolonization -) 1 applic TP [facility] Last Admin: 10/22/19 21:33 Dose: 1 applic Documented by: Propofol (Diprivan -) 1,000,000 mcg in 100 mls @ 11.97 mls/hr IVPB TITR [facility]; Protocol Last Titration: 10/23/19 08:44 Dose: 40 mcg/kg/min, 15.96 mls/hr Documented by: Fentanyl (Sublimaze Ivpb) 500 mcg in 100 mls @ 10 mls/hr IVPB TITR [facility]; Protocol Last Admin: 10/23/19 09:17 Dose: 100 mcg/hr, 20 mls/hr Documented by: Cefepime HCl 1 gm/ Dextrose 100 mls @ 100 mls/hr IVPB Q8H-IV [facility]; Protocol Last Admin: 10/23/19 09:15 Dose: 100 mls/hr Documented by: Dextrose/Sodium Chloride (D5-1/2ns -) 1,000 mls @ 75 mls/hr IV ASDIR [facility] Last Admin: 10/22/19 18:51 Dose: 75 mls/hr Documented by: Norepinephrine Bitartrate (Levophed Bag) 16,000 mcg in 500 mls @ 9.375 mls/hr IVPB TITR [facility]; Protocol Last Titration: 10/23/19 08:17 Dose: 8 mcg/min, 15 mls/hr Documented by: Insulin Aspart (Novolog Vial Sliding Scale -) 1 vial SQ TIDAC [facility]; Protocol Last Admin: 10/23/19 06:02 Dose: Not Given Documented by: Insulin Detemir (Levemir Vial) 15 units SQ [facility] Last Admin: 10/22/19 21:27 Dose: Not Given Documented by: Methylprednisolone Sodium Succinate (Solu-Medrol -) 30 mg IVPUSH BID [facility] Last Admin: 10/23/19 09:19 Dose: 30 mg Documented by: Metoprolol Tartrate (Lopressor Injection -) 5 mg IVPUSH Q4H PRN PRN Reason: TACHYCARDIA Last Admin: 10/17/19 09:25 Dose: 5 mg Documented by: Mirtazapine (Remeron -) 15 mg PO [facility] Last Admin: 10/22/19 21:33 Dose: 15 mg Documented by: Pantoprazole Sodium (Protonix Iv) 40 mg IVPUSH DAILY [facility] Last Admin: 10/23/19 09:18 Dose: 40 mg Documented by: Sotalol HCl (Betapace -) 80 mg PO BID [facility] Last Admin: 10/23/19 09:21 Dose: Not Given Documented by: - Objective Vital Signs: Vital Signs Temperature 97.1 F L 10/23/19 09:49 Pulse Rate 62 10/23/19 09:49 Respiratory Rate 18 10/23/19 09:49 Blood Pressure 102/46 L 10/23/19 09:49 O2 Sat by Pulse Oximetry (%) 100 10/23/19 09:49 Eyes: Yes: WNL, Conjunctiva Clear, EOM Intact HENT: Yes: WNL, Atraumatic, Normocephalic Neck: Yes: WNL, Supple, Trachea Midline Cardiovascular: Yes: WNL, Regular Rate and Rhythm Respiratory: Yes: Diminished, Intubated, Mechanically Ventilated Gastrointestinal: Yes: WNL, Normal Bowel Sounds Genitourinary: Yes: WNL Musculoskeletal: Yes: WNL Extremities: Yes: WNL Edema: Yes Edema: LLE: 1+, RLE: 1+ Integumentary: Yes: WNL Labs: CBC, BMP 10/23/19 06:00 10/23/19 06:00 INR, PTT INR 1.52 (0.83-1.09) H 10/21/19 05:40 Fibrinogen > 500.0 mg/dL (238-498) H 10/08/19 06:30 Assessment/Plan - Problems (1) Acute on chronic diastolic (congestive) heart failure Code(s): I50.33 - ACUTE ON CHRONIC DIASTOLIC (CONGESTIVE) HEART FAILURE (2) Acute respiratory failure with hypoxia Code(s): J96.01 - ACUTE RESPIRATORY FAILURE WITH HYPOXIA (3) Aortic valve stenosis Code(s): I35.0 - NONRHEUMATIC AORTIC (VALVE) STENOSIS Qualifiers: Cardiac valve disease etiology: nonrheumatic Qualified Code(s): I35.0 - Nonrheumatic aortic (valve) stenosis (4) Atrial flutter Code(s): I48.92 - UNSPECIFIED ATRIAL FLUTTER Qualifiers: Atrial flutter type: typical Qualified Code(s): I48.3 - Typical atrial flutter (5) CAD (coronary artery disease) Code(s): I25.10 - ATHSCL HEART DISEASE OF [place] CORONARY ARTERY W/O ANG PCTRS Qualifiers: Coronary Disease-Associated Artery/Lesion type: [place] artery [place] vs. transplanted heart: [place] heart Associated angina: without angina Qualified Code(s): I25.10 - Atherosclerotic heart disease of [place] coronary artery without angina pectoris (6) HTN (hypertension) Code(s): I10 - ESSENTIAL (PRIMARY) HYPERTENSION Qualifiers: Hypertension type: essential hypertension Qualified Code(s): I10 - Essential (primary) hypertension (7) Hx of CABG Code(s): Z95.1 - PRESENCE OF AORTOCORONARY BYPASS GRAFT (8) Hypercholesterolemia Code(s): E78.00 - PURE HYPERCHOLESTEROLEMIA, UNSPECIFIED (9) S/P AVR (aortic valve replacement) Code(s): Z95.2 - PRESENCE OF PROSTHETIC HEART VALVE (10) S/P left atrial appendage ligation Code(s): Z98.890 - OTHER SPECIFIED POSTPROCEDURAL STATES (11) Suspected COVID-19 virus infection Code(s): Z20.828 - CONTACT W AND EXPOSURE TO H VIRAL COMMUNICABLE DISEASES Assessment/Plan Echo 09/03/2019 Post-op septal motion, normal LVEF 50-55%, mod cLVH, normal RV size and fxn, mild LAE, mild MR, TR, bioAVR, mild AR, restrictive physiology Echocardiography October 12, 2018 revealed mild degree of concentric left ventricular hypertrophy with normal left ventricular systolic function and estimated LVEF between 65-70%, mild left atrial dilatation, normal right ventricular size and systolic function, aortic valve bioprosthesis with no aortic valve insufficiency, moderately dilated ascending aorta, mild thickening of the mitral valve leaflets with mild mitral valve regurgitation, mild to moderate tricuspid valve regurgitation with calculated RVSP of [address]: Small-moderate right and very small left effusion, pulm edema TAA 3.9 cm 1. Clinical presentation is consistent with acute hypoxic respiratory failure related to bronchopneumonia with sepsis syndrome, coronavirus/COVID 19- persistent residual infiltrates 2. Diastolic left ventricular dysfunction with chronic class I-II NYHA classification left ventricular failure 3. Paroxysmal atrial flutter [id number] score of 5 post cardioversion on DOAC's/Eliquis 4. CAD post CABG with evidence of demand ischemia related to the above-noted clinical presentation angina pectoris 5. Aortic valve stenosis post SAVR/bio-prosthesis- with LA appendage ligation 6. Hypertensive cardiovascular disease, intermittent hypotension related to the above-noted sepsis syndrome 7. Hyperglycemia- diabetes mellitus 8. Hypercholesterolemia 9. History of altered mental status etiology of which was unclear- prior history of clinical depression 10. GURU resolved 11. Anemia post-transfusion 12. Suspected ileus PLAN: 1. Weaned off Levophed 2. Continue Sotalol 80 bid with caution and close monitoring of QTc interval, IV Lopressor as needed for rate-control 3. Continue Atorvastatin 40 qd 4. Continue DOAC's/Eliquis 5 bid with caution and close monitoring of hemoglobin level, maintaining hemoglobin level equal or greater than 8.0 5. Withhold Lasix therapy in view of the above-noted prerenal azotemia 6. Antibiotics as per the primary team, IV steroid taper, vent wean as tolerated, enteral feeds as tolerated, c. diff negative Overall poor prognosis Coverage for dr. Esqueda cc time spent 36 min
[2019-10-23 11:09] LABS: ANISOCYTOSIS 1+; MACROCYTOSIS 0; PLATELET ESTIMATE DECREASED; TEAR DROP CELLS 1+; TOXIC GRANULATION 1+
[2019-10-23] MEDS: PROPOFOL 1,000,000 MCG/100 ML VIAL IVPB SCH ×4 (11:32→21:00)
--- NOTE | 2019-10-23 15:17 | PN ---
Progress Note (short form) - Note Progress Note: PULM/CCM Pt seen and examined in the ICU. Remains intubated, sedated on propofol and fentanyl, currently on 6 mcg of Norepinephrine. Vented on volume assist control with 18/450/80%/ PEEP 7. Pplat 23. Restarted trickle feeding today. ABG Results ABG pH 7.138 (7.350-7.450) L* 10/23/19 05:35 ABG HCO3 20.2 mmol/L (22-27) L 10/23/19 05:35 ABG O2 Sat (Measured) 92.5 mmHg (95-98) L 10/23/19 05:35 ABG O2 Content No Result Required. 10/23/19 05:35 ABG Base Excess -8.8 mmol/L (-2-2) L 10/23/19 05:35 Vital Signs Period Temp Pulse Resp BP Sys/Amador Pulse Ox Last 24 Hr 97.1 F-98.3 F 60-94 14-24 85-128/46-66 91-100 Intake & Output 10/20/19 10/21/19 10/22/19 10/23/19 23:59 23:59 23:59 23:59 Intake Total 4507.8 4094.9 2932 2629 Output Total 2000 1200 1200 800 Balance 2507.8 2894.9 1732 1829 Weight 75.3 kg 71.1 kg 80.2 kg 80 kg Gen: intubated, sedated Heart: RRR Lung: scattered rhonchi Abd: soft, nontender Ext: + edema CBC, BMP 10/23/19 06:00 10/23/19 06:00 Active Medications Acetaminophen (Tylenol -) 650 mg PO Q6H PRN PRN Reason: FEVER Last Admin: 10/13/19 17:17 Dose: 650 mg Documented by: Albuterol Sulfate (Ventolin Hfa Inhaler -) 2 puff IH Q4H PRN PRN Reason: SHORT OF BREATH/WHEEZING Apixaban (Eliquis -) 5 mg PO BID [facility] Last Admin: 10/23/19 21:38 Dose: 5 mg Documented by: Atorvastatin Calcium (Lipitor -) 40 mg PO HS [facility] Last Admin: 10/23/19 21:38 Dose: 40 mg Documented by: Banana Based Medical Food (Banatrol Plus Powder Packet) 1 packet PO TID [facility] Last Admin: 10/23/19 21:38 Dose: 1 packet Documented by: Chlorhexidine Gluconate (Hibiclens For Decolonization -) 1 applic TP [facility] Last Admin: 10/23/19 21:38 Dose: 1 applic Documented by: Propofol (Diprivan -) 1,000,000 mcg in 100 mls @ 11.97 mls/hr IVPB TITR [facility]; Protocol Last Admin: 10/23/19 15:37 Dose: 40 mcg/kg/min, 15.96 mls/hr Documented by: Fentanyl (Sublimaze Ivpb) 500 mcg in 100 mls @ 10 mls/hr IVPB TITR [facility]; Protocol Last Admin: 10/23/19 16:22 Dose: 100 mcg/hr, 20 mls/hr Documented by: Cefepime HCl 1 gm/ Dextrose 100 mls @ 100 mls/hr IVPB Q8H-IV [facility]; Protocol Last Admin: 10/23/19 17:29 Dose: 100 mls/hr Documented by: Dextrose/Sodium Chloride (D5-1/2ns -) 1,000 mls @ 75 mls/hr IV ASDIR [facility] Last Admin: 10/23/19 19:38 Dose: Not Given Documented by: Norepinephrine Bitartrate (Levophed Bag) 16,000 mcg in 500 mls @ 9.375 mls/hr IVPB TITR [facility]; Protocol Last Admin: 10/23/19 21:39 Dose: 8 mcg/min, 15 mls/hr Documented by: Insulin Aspart (Novolog Vial Sliding Scale -) 1 vial SQ TIDAC [facility]; Protocol Last Admin: 10/23/19 17:28 Dose: 4 units Documented by: Insulin Detemir (Levemir Vial) 15 units SQ [facility] Last Admin: 10/23/19 21:38 Dose: 15 units Documented by: Methylprednisolone Sodium Succinate (Solu-Medrol -) 30 mg IVPUSH BID [facility] Last Admin: 10/23/19 21:38 Dose: 30 mg Documented by: Metoprolol Tartrate (Lopressor Injection -) 5 mg IVPUSH Q4H PRN PRN Reason: TACHYCARDIA Last Admin: 10/17/19 09:25 Dose: 5 mg Documented by: Mirtazapine (Remeron -) 15 mg PO [facility] Last Admin: 10/23/19 21:38 Dose: 15 mg Documented by: Pantoprazole Sodium (Protonix Iv) 40 mg IVPUSH DAILY [facility] Last Admin: 10/23/19 09:18 Dose: 40 mg Documented by: Sotalol HCl (Betapace -) 80 mg PO BID [facility] Last Admin: 10/23/19 21:38 Dose: Not Given Documented by: ASSESSMENT AND PLAN: Acute Hypoxic Respiratory Failure Aspiration PNA ARDS Sepsis Acute Kidney Injury Paroxysmal Atrial Fibrillation CAD s/p CABG Aortic Stenosis s/p AVR HTN Hypercholesterolemia Anemia - continue Cefepime - ID recs appreciated - Titrate FiO2 for SaO2>92% - monitor Pplat - Titrate pressors for maintain MAP >65 - monitor urine output, creatinine - Strict I & O - taper steroids - continue anticoagulation - rate control, metoprolol IVP PRN - sedate for vent synchrony - hold enteral feeds - DVT/GI prophylaxis - Insulin coverage scale - Transfuse for Hgb <7, Plt<10 - continue ICU monitoring Dispo: patient is DNR Rayne Lopez ACNP [id number]
[2019-10-23] MEDS ORDERED: INSULIN (NOVOLOG) ASPART 100 UNITS/ML 10ML VIAL ONE (17:25)
[2019-10-23] MEDS: DEXTROSE 5%-0.45% SALINE 1,000 ML IV SCH (19:38)
[2019-10-23] MEDS ORDERED: PT OWN MED DRAWER 7, Y5N ONE (21:36)
[2019-10-23] MEDS: CHLORHEXIDINE GLUCONATE 4% CLEANSER FOR DECOLONIZATION TP SCH (21:38)
[2019-10-23] MEDS: INSULIN (LEVEMIR) 100 UNITS/ML UNITS SQ SCH (21:38)
[2019-10-23] MEDS: ATORVASTATIN CA 40 MG TABLET (FP) PO SCH (21:38)
[2019-10-23] MEDS: MIRTAZAPINE 15 MG TABLET (FP) PO SCH (21:38)
[2019-10-23] MEDS: NOREPINEPHRINE D5W PREMIX 16,000 MCG/500 ML BAG IVPB SCH (21:39)
[2019-10-24] MEDS: CEFEPIME 1 GM in DEXTROSE 5%-WATER 100 ML IVPB SCH ×3 (01:44→19:00)
[2019-10-24] MEDS: PROPOFOL 1,000,000 MCG/100 ML VIAL IVPB SCH ×4 (02:00→19:00)
[2019-10-24] MEDS: BANATROL PLUS POWDER PACKET PO SCH ×3 (06:04→21:43)
[2019-10-24] MEDS: INSULIN SLIDING SCALE (NOVOLOG) 1 VIAL SQ SCH ×3 (06:04→18:00)
[2019-10-24 06:36] LABS: ARTERIAL BLD GAS O2 SATURATION 98.2 mmHg (95-98); ARTERIAL BLOOD GAS BASE EXCESS -7.2 mmol/L (-2-2); ARTERIAL BLOOD GAS PO2 131.9 mmHg (80-100); ARTERIAL BLOOD GAS pH 7.247 (7.350-7.450)
[2019-10-24 07:09] LABS: BASO % 0.1 % (0-2.0); HEMATOCRIT 21.9 % (35.4-49); HEMOGLOBIN 7.3 GM/dL (11.7-16.9); LYMPH % 2.7 % (8-40); MCH 30.4 pg (25.7-33.7); MCHC 33.1 g/dl (32.0-35.9); MEAN CELL VOLUME 91.7 fl (80-96); MEAN PLT VOLUME 9.4 fl (7.5-11.1); MONO % 1.1 % (3.8-10.2); NEUT % 96.1 % (42.8-82.8); PLATELET COUNT 82 K/MM3 (134-434); RBC 2.39 M/mm3 (4.00-5.60); WHITE BLOOD COUNT 10.2 K/mm3 (4.0-10.0)
[2019-10-24 07:13] LABS: ALLENS TEST POSITIVE
[2019-10-24 07:14] LABS: VENT MODE A/C; VENT RATE 18
[2019-10-24 07:34] LABS: ALBUMIN 1.2 g/dl (3.4-5.0); BILIRUBIN,TOTAL 0.7 mg/dL (0.2-1); CREATININE 0.6 mg/dL (0.55-1.3); MAGNESIUM 1.8 mg/dL (1.8-2.4); PHOSPHOROUS 2.7 mg/dL (2.5-4.9); POTASSIUM 3.9 mmol/L (3.5-5.1); TOT PROT 4.4 g/dl (6.4-8.2)
[2019-10-24 07:41] LABS: CALCIUM 6.3 mg/dL (8.5-10.1)
[2019-10-24] MEDS ORDERED: DEXTROSE 5%-WATER 100 ML IVPB ONE ×2 (07:41→18:24)
[2019-10-24] MEDS ORDERED: CEFEPIME HCL 1 GM VIAL (RESTRICTED TO ID) ONE ×2 (07:41→18:24)
[2019-10-24] MEDS: METOPROLOL TARTRATE 5 MG/5 ML VIAL IVPUSH PRN (08:30)
--- NOTE | 2019-10-24 08:50 | PN ---
Progress Note, Physician History of Present Illness: This is a 78 y/o male with a significant medical history of Afib (on Eliquis), Angina, CHF, HTN, HLD, GI Bleed, recent admission 09/19-09/21 Suspected Covid, Afibrillation, stabalized and discharged. Who presents to the ED with difficulty breathing. Patient reports having progressive SOB while using O2. Patient denies fever, chills, dizziness, SPEARS, CP , palpitations, AP, N/V/D, constipation, dy suria. Patient denies sick contacts or recent travel. 09/23:I was called by home nurse yesterday that pt with tachycardia and SOB; Here febrile today; CT showed diffuse bilat pulmonary changes c/w Covid, slightly improved only ; new Covid test pending; elevated ferritin and CRP; normal trop; elevated BNP - Current Medication List Current Medications: Active Medications Acetaminophen (Tylenol -) 650 mg PO Q6H PRN PRN Reason: FEVER Last Admin: 10/13/19 17:17 Dose: 650 mg Documented by: Albuterol Sulfate (Ventolin Hfa Inhaler -) 2 puff IH Q4H PRN PRN Reason: SHORT OF BREATH/WHEEZING Apixaban (Eliquis -) 5 mg PO BID [facility] Last Admin: 10/23/19 21:38 Dose: 5 mg Documented by: Atorvastatin Calcium (Lipitor -) 40 mg PO [facility] Last Admin: 10/23/19 21:38 Dose: 40 mg Documented by: Banana Based Medical Food (Banatrol Plus Powder Packet) 1 packet PO TID [facility] Last Admin: 10/24/19 06:04 Dose: 1 packet Documented by: Chlorhexidine Gluconate (Hibiclens For Decolonization -) 1 applic TP [facility] Last Admin: 10/23/19 21:38 Dose: 1 applic Documented by: Propofol (Diprivan -) 1,000,000 mcg in 100 mls @ 11.97 mls/hr IVPB TITR [facility]; Protocol Last Admin: 10/24/19 02:00 Dose: 40 mcg/kg/min, 15.96 mls/hr Documented by: Fentanyl (Sublimaze Ivpb) 500 mcg in 100 mls @ 10 mls/hr IVPB TITR [facility]; Protocol Last Admin: 10/23/19 22:00 Dose: 50 mcg/hr, 10 mls/hr Documented by: Cefepime HCl 1 gm/ Dextrose 100 mls @ 100 mls/hr IVPB Q8H-IV [facility]; Protocol Last Admin: 10/24/19 01:44 Dose: 100 mls/hr Documented by: Dextrose/Sodium Chloride (D5-1/2ns -) 1,000 mls @ 75 mls/hr IV ASDIR [facility] Last Admin: 10/23/19 19:38 Dose: Not Given Documented by: Norepinephrine Bitartrate (Levophed Bag) 16,000 mcg in 500 mls @ 9.375 mls/hr IVPB TITR [facility]; Protocol Last Titration: 10/23/19 22:00 Dose: 6 mcg/min, 11.25 mls/hr Documented by: Insulin Aspart (Novolog Vial Sliding Scale -) 1 vial SQ TIDAC [facility]; Protocol Last Admin: 10/24/19 06:04 Dose: 4 units Documented by: Insulin Detemir (Levemir Vial) 15 units SQ HS [facility] Last Admin: 10/23/19 21:38 Dose: 15 units Documented by: Methylprednisolone Sodium Succinate (Solu-Medrol -) 30 mg IVPUSH BID [facility] Last Admin: 10/23/19 21:38 Dose: 30 mg Documented by: Metoprolol Tartrate (Lopressor Injection -) 5 mg IVPUSH Q4H PRN PRN Reason: TACHYCARDIA Last Admin: 10/17/19 09:25 Dose: 5 mg Documented by: Mirtazapine (Remeron -) 15 mg PO HS [facility] Last Admin: 10/23/19 21:38 Dose: 15 mg Documented by: Pantoprazole Sodium (Protonix Iv) 40 mg IVPUSH DAILY [facility] Last Admin: 10/23/19 09:18 Dose: 40 mg Documented by: Sotalol HCl (Betapace -) 80 mg PO BID [facility] Last Admin: 10/23/19 21:38 Dose: Not Given Documented by: - Objective Vital Signs: Vital Signs Temperature 98.3 F 10/24/19 04:00 Pulse Rate 73 10/24/19 08:23 Respiratory Rate 18 10/24/19 08:24 Blood Pressure 118/50 L 10/24/19 06:00 O2 Sat by Pulse Oximetry (%) 99 10/24/19 08:24 Eyes: Yes: WNL, Conjunctiva Clear, EOM Intact HENT: Yes: WNL, Atraumatic, Normocephalic Neck: Yes: WNL, Supple, Trachea Midline Cardiovascular: Yes: WNL, Regular Rate and Rhythm Respiratory: Yes: Diminished, Intubated, Mechanically Ventilated Gastrointestinal: Yes: WNL, Normal Bowel Sounds Genitourinary: Yes: WNL Musculoskeletal: Yes: WNL Extremities: Yes: WNL Edema: No Integumentary: Yes: WNL Labs: CBC, BMP 10/24/19 05:30 10/24/19 05:30 INR, PTT INR 1.52 (0.83-1.09) H 10/21/19 05:40 Fibrinogen > 500.0 mg/dL (238-498) H 10/08/19 06:30 Assessment/Plan - Problems (1) Acute on chronic diastolic (congestive) heart failure Code(s): I50.33 - ACUTE ON CHRONIC DIASTOLIC (CONGESTIVE) HEART FAILURE (2) Acute respiratory failure with hypoxia Code(s): J96.01 - ACUTE RESPIRATORY FAILURE WITH HYPOXIA (3) Aortic valve stenosis Code(s): I35.0 - NONRHEUMATIC AORTIC (VALVE) STENOSIS Qualifiers: Cardiac valve disease etiology: nonrheumatic Qualified Code(s): I35.0 - Nonrheumatic aortic (valve) stenosis (4) Atrial flutter Code(s): I48.92 - UNSPECIFIED ATRIAL FLUTTER Qualifiers: Atrial flutter type: typical Qualified Code(s): I48.3 - Typical atrial flutter (5) CAD (coronary artery disease) Code(s): I25.10 - ATHSCL HEART DISEASE OF [place] CORONARY ARTERY W/O ANG PCTRS Qualifiers: Coronary Disease-Associated Artery/Lesion type: [place] artery [place] vs. transplanted heart: [place] heart Associated angina: without angina Qualified Code(s): I25.10 - Atherosclerotic heart disease of [place] coronary artery without angina pectoris (6) HTN (hypertension) Code(s): I10 - ESSENTIAL (PRIMARY) HYPERTENSION Qualifiers: Hypertension type: essential hypertension Qualified Code(s): I10 - Esse ntial (primary) hypertension (7) Hx of CABG Code(s): Z95.1 - PRESENCE OF AORTOCORONARY BYPASS GRAFT (8) Hypercholesterolemia Code(s): E78.00 - PURE HYPERCHOLESTEROLEMIA, UNSPECIFIED (9) S/P AVR (aortic valve replacement) Code(s): Z95.2 - PRESENCE OF PROSTHETIC HEART VALVE (10) S/P left atrial appendage ligation Code(s): Z98.890 - OTHER SPECIFIED POSTPROCEDURAL STATES (11) Suspected COVID-19 virus infection Code(s): Z20.828 - CONTACT W AND EXPOSURE TO OTH VIRAL COMMUNICABLE DISEASES Assessment/Plan Echo 09/03/2019 Post-op septal motion, normal LVEF 50-55%, mod cLVH, normal RV size and fxn, mild LAE, mild MR, TR, bioAVR, mild AR, restrictive physiology Echocardiography October 12, 2018 revealed mild degree of concentric left ventricular hypertrophy with normal left ventricular systolic function and estimated LVEF between 65-70%, mild left atrial dilatation, normal right ventricular size and systolic function, aortic valve bioprosthesis with no aortic valve insufficiency, moderately dilated ascending aorta, mild thickening of the mitral valve leaflets with mild mitral valve regurgitation, mild to moderate tricuspid valve regurgitation with calculated RVSP of [address]: Small-moderate right and very small left effusion, pulm edema TAA 3.9 cm 1. Clinical presentation is consistent with acute hypoxic respiratory failure related to bronchopneumonia with sepsis syndrome, coronavirus/COVID 19- persistent residual infiltrates 2. Diastolic left ventricular dysfunction with chronic class I-II NYHA classification left ventricular failure 3. Paroxysmal atrial flutter [id number] score of 5 post cardioversion on DOAC's/Eliquis 4. CAD post CABG with evidence of demand ischemia related to the above-noted clinical presentation angina pectoris 5. Aortic valve stenosis post SAVR/bio-prosthesis- with LA appendage ligation 6. Hypertensive cardiovascular disease, intermittent hypotension related to the above-noted sepsis syndrome 7. Hyperglycemia- diabetes mellitus 8. Hypercholesterolemia 9. History of altered mental status etiology of which was unclear- prior history of clinical depression 10. GURU resolved 11. Anemia post-transfusion 12. Suspected ileus PLAN: 1. Weaned off Levophed 2. Continue Sotalol 80 bid with caution and close monitoring of QTc interval, IV Lopressor as needed for rate-control 3. Continue Atorvastatin 40 qd 4. Continue DOAC's/Eliquis 5 bid with caution and close monitoring of hemoglobin level, maintaining hemoglobin level equal or greater than 8.0 5. Withhold Lasix therapy in view of the above-noted prerenal azotemia 6. Antibiotics as per the primary team, IV steroid taper, vent wean as tolerated, enteral feeds as tolerated, c. diff negative Overall poor prognosis Coverage for dr. Esqueda cc time spent 35 min
[2019-10-24] MEDS: PANTOPRAZOLE SODIUM 40 MG VIAL IVPUSH SCH (09:10)
[2019-10-24] MEDS: APIXABAN 5 MG TABLET PO SCH ×2 (09:10→21:44)
[2019-10-24] MEDS: FENTANYL IVPB 500 MCG/100 ML BAG IVPB SCH ×2 (09:10→14:00)
[2019-10-24] MEDS: methylPREDNISolone NA SUCC 40 MG/1 ML VIAL IVPUSH SCH ×2 (09:11→21:45)
[2019-10-24 09:30] LABS: ANISOCYTOSIS 1+; MACROCYTOSIS 0; OVALOCYTE 1+; PLATELET ESTIMATE DECREASED; TEAR DROP CELLS 1+
[2019-10-24] MEDS: SOTALOL HCL 80 MG TABLET (FP) PO SCH ×2 (09:42→21:44)
--- NOTE | 2019-10-24 09:55 | PN ---
Progress Note (short form) - Note Progress Note: PULM/CCM Pt seen and examined in the ICU. Remains intubated, sedated on propofol and fentanyl. Off all pressors. Vented on volume assist control with 18/450/80%/ PEEP 7. Marked improve in Pplat 23 --> 17. Tolerating trophic feeds. Active Medications Acetaminophen (Tylenol -) 650 mg PO Q6H PRN PRN Reason: FEVER Last Admin: 10/13/19 17:17 Dose: 650 mg Documented by: Albuterol Sulfate (Ventolin Hfa Inhaler -) 2 puff IH Q4H PRN PRN Reason: SHORT OF BREATH/WHEEZING Apixaban (Eliquis -) 5 mg PO BID [facility] Last Admin: 10/24/19 09:10 Dose: 5 mg Documented by: Atorvastatin Calcium (Lipitor -) 40 mg PO HS [facility] Last Admin: 10/23/19 21:38 Dose: 40 mg Documented by: Banana Based Medical Food (Banatrol Plus Powder Packet) 1 packet PO TID [facility] Last Admin: 10/24/19 06:04 Dose: 1 packet Documented by: Chlorhexidine Gluconate (Hibiclens For Decolonization -) 1 applic TP HS [facility] Last Admin: 10/23/19 21:38 Dose: 1 applic Documented by: Propofol (Diprivan -) 1,000,000 mcg in 100 mls @ 11.97 mls/hr IVPB TITR [facility]; Protocol Last Admin: 10/24/19 09:00 Dose: 40 mcg/kg/min, 15.96 mls/hr Documented by: Fentanyl (Sublimaze Ivpb) 500 mcg in 100 mls @ 10 mls/hr IVPB TITR [facility]; Protocol Last Admin: 10/24/19 09:10 Dose: 100 mcg/hr, 20 mls/hr Documented by: Cefepime HCl 1 gm/ Dextrose 100 mls @ 100 mls/hr IVPB Q8H-IV [facility]; Protocol Last Admin: 10/24/19 09:19 Dose: 100 mls/hr Documented by: Dextrose/Sodium Chloride (D5-1/2ns -) 1,000 mls @ 75 mls/hr IV ASDIR [facility] Last Admin: 10/23/19 19:38 Dose: Not Given Documented by: Norepinephrine Bitartrate (Levophed Bag) 16,000 mcg in 500 mls @ 9.375 mls/hr IVPB TITR [facility]; Protocol Last Titration: 10/24/19 08:15 Dose: 0 mcg/min, 0 mls/hr Documented by: Insulin Aspart (Novolog Vial Sliding Scale -) 1 vial SQ TIDAC [facility]; Protocol Last Admin: 10/24/19 06:04 Dose: 4 units Documented by: Insulin Detemir (Levemir Vial) 15 units SQ [facility] Last Admin: 10/23/19 21:38 Dose: 15 units Documented by: Methylprednisolone Sodium Succinate (Solu-Medrol -) 30 mg IVPUSH BID [facility] Last Admin: 10/24/19 09:11 Dose: 30 mg Documented by: Metoprolol Tartrate (Lopressor Injection -) 5 mg IVPUSH Q4H PRN PRN Reason: TACHYCARDIA Last Admin: 10/24/19 08:30 Dose: 5 mg Documented by: Mirtazapine (Remeron -) 15 mg PO [facility] Last Admin: 10/23/19 21:38 Dose: 15 mg Documented by: Pantoprazole Sodium (Protonix Iv) 40 mg IVPUSH DAILY [facility] Last Admin: 10/24/19 09:10 Dose: 40 mg Documented by: Sotalol HCl (Betapace -) 80 mg PO BID [facility] Last Admin: 10/24/19 09:42 Dose: 80 mg Documented by: Vital Signs Period Temp Pulse Resp BP Sys/Amador Pulse Ox Last 24 Hr 98.1 F-98.3 F 62-165 14-24 100-176/50-66 98-100 Intake & Output 10/21/19 10/22/19 10/23/19 10/24/19 23:59 23:59 23:59 23:59 Intake Total 4094.9 2932 2629 1903.5 Output Total 1200 1200 800 400 Balance 2894.9 1732 1829 1503.5 Weight 71.1 kg 80.2 kg 80 kg 82.4 kg GEN: Elderly man, intubated, sedated on the Vent PULM: CTAB CV: RRR ABD: Protuberant, hypo-active BS, S/S N/T N/D X4Q EXT: + Pulses, WWP X4, + edema CBC, BMP 10/24/19 05:30 10/24/19 05:30 ABG Results ABG pH 7.247 (7.350-7.450) L 10/24/19 05:30 ABG HCO3 19.8 mmol/L (22-27) L 10/24/19 05:30 ABG O2 Sat (Measured) 98.2 mmHg (95-98) H 10/24/19 05:30 ABG O2 Content No Result Required. 10/24/19 05:30 ABG Base Excess -7.2 mmol/L (-2-2) L 10/24/19 05:30 Microbiology 10/22/19 14:45 Sputum - Endotrachea Suction/Ventilator Gram Stain - Final 10/18/19 21:30 Blood - Peripheral Venous Blood Culture - Final NO GROWTH AFTER 5 DAYS INCUBATION 10/18/19 21:30 Blood - Peripheral Venous Blood Culture - Final NO GROWTH AFTER 5 DAYS INCUBATION 10/19/19 09:10 Sputum - Endotrachea Suction/Ventilator Gram Stain - Final 10/19/19 09:10 Sputum - Endotrachea Suction/Ventilator Sputum Culture - Final Klebsiella Pneumoniae Enterobacter Aerogenes 10/19/19 15:07 Urine - Urine - Catheterized Urine Culture - Final Yeast Like Organism 10/19/19 17:00 Stool Clostridioides difficile Antigen - Final 10/19/19 17:00 Stool Clostridioides difficile Toxin Assay - Final 10/12/19 18:00 Blood - Peripheral Venous Blood Culture - Final NO GROWTH AFTER 5 DAYS INCUBATION 10/12/19 18:00 Blood - Peripheral Venous Blood Culture - Final NO GROWTH AFTER 5 DAYS INCUBATION 10/14/19 09:30 Sputum - Endotrachea Suction/Ventilator Gram Stain - Final 10/14/19 09:30 Sputum - Endotrachea Suction/Ventilator Sputum Culture - Final Klebsiella Pneumoniae 10/08/19 16:00 Sputum - Endotrachea Suction/Ventilator Gram Stain - Final 10/08/19 16:00 Sputum - Endotrachea Suction/Ventilator Sputum Culture - Final Klebsiella Pneumoniae Yeast Like Organism 10/06/19 05:55 Blood - Peripheral Venous Blood Culture - Final NO GROWTH AFTER 5 DAYS INCUBATION 10/06/19 05:40 Blood - Peripheral Venous Blood Culture - Final NO GROWTH AFTER 5 DAYS INCUBATION 10/06/19 20:03 Urine - Urine Smiley Legionella Antigen - Final 10/06/19 20:03 Urine - Urine Smiley Streptococcus pneumoniae Antigen (M - Fi nal 10/06/19 06:00 Urine - Urine Smiley Urine Culture - Final NO GROWTH OBTAINED 09/24/19 10:45 Blood - Peripheral Venous Blood Culture - Final NO GROWTH AFTER 5 DAYS INCUBATION 09/24/19 10:40 Blood - Peripheral Venous Blood Culture - Final NO GROWTH AFTER 5 DAYS INCUBATION 09/25/19 12:25 Urine - Urine Clean Catch Legionella Antigen - Final 09/25/19 12:25 Urine - Urine Clean Catch Streptococcus pneumoniae Antigen (M - Final 09/24/19 10:46 Urine - Urine Clean Catch Urine Culture - Final NO GROWTH OBTAINED RECENT STUDIES TO NOTE: CXR 10/22: A single view of the chest again reveals diffuse airspace changes compatible with a mixture of infiltrates and failure with pleural fluid. Endotracheal tube, nasogastric tube and right jugular line persist. There are sternal sutures and a left-sided cardiac device. Impression: No significant change since prior study. KUB 10/21: A single view of the abdomen reveal some distended loops of both large and small bowel with NG tube tip in stomach. There are pulmonary and pleural changes. There is no sign of free air or gross pneumatosis. The left abdomen is not fully visualized. ASSESS: Acute Hypoxic Respiratory Failure i/s/o Kleb Pna ARDS Sepsis Acute Kidney Injury Paroxysmal Atrial Fibrillation CAD s/p CABG Aortic Stenosis s/p AVR HTN Hypercholesterolemia Anemia PLAN: - Cont full Vent Support - Titrate FiO2 for SaO2>92% - monitor Pplat - sedate for vent synchrony - continue Cefepime (Kleb pna is sens to Cefepime) - ID recs appreciated - monitor urine output, creatinine - begin gentle diuresis - Strict I & O - taper steroids - continue anticoagulation - cont rate control w/ the sotalol - Insulin coverage scale - Transfuse for Hgb <7, Plt<20 - trophic feeds - DVT/GI prophylaxis - continue ICU monitoring DISPO: [facility] ICU PULM/CCM [id number]
--- NOTE | 2019-10-24 10:43 | PN ---
Progress Note (short form) - Note Progress Note: remains intubated levophed Vital Signs - 24 hr 10/22/19 10/22/19 10/22/19 12:00 12:10 12:30 Temperature Pulse Rate 68 Respiratory 23 H 15 Rate Blood Pressure 103/50 L O2 Sat by Pulse 95 97 97 Oximetry (%) 10/22/19 10/22/19 10/22/19 14:00 16:00 16:10 Temperature 98.0 F Pulse Rate 89 110 H Respiratory 31 H 24 H 27 H Rate Blood Pressure 130/60 114/48 L O2 Sat by Pulse 93 L 97 95 Oximetry (%) 10/22/19 10/22/19 10/22/19 18:00 20:00 20:12 Temperature 98.2 F Pulse Rate 87 89 Respiratory 22 H 21 H 19 Rate Blood Pressure 97/59 L 99/40 L O2 Sat by Pulse 95 98 90 L Oximetry (%) 10/22/19 10/22/19 10/23/19 21:00 22:00 00:00 Temperature 98 F Pulse Rate 95 H 89 Respiratory 21 H 18 14 Rate Blood Pressure 98/51 L 99/55 L O2 Sat by Pulse 98 92 L 91 L Oximetry (%) 10/23/19 10/23/19 10/23/19 00:33 02:00 04:00 Temperature 98.3 F Pulse Rate 69 72 Respiratory 14 14 14 Rate Blood Pressure 98/48 L 103/48 L O2 Sat by Pulse 94 L 94 L 96 Oximetry (%) 10/23/19 10/23/19 10/23/19 04:05 06:00 07:51 Temperature 98.2 F Pulse Rate 65 63 Respiratory 14 14 18 Rate Blood Pressure 97/51 L O2 Sat by Pulse 94 L 98 100 Oximetry (%) 10/23/19 10/23/19 10/23/19 08:00 08:30 09:49 Temperature 97.1 F L Pulse Rate 60 62 Respiratory 18 18 18 Rate Blood Pressure 85/48 L 102/46 L O2 Sat by Pulse 99 100 Oximetry (%) Current Medications Generic Name Dose Route Start Last Admin Trade Name Freq PRN Reason Stop Dose Admin Acetaminophen 650 mg 10/06/19 00:25 10/13/19 17:17 Tylenol - PO 650 mg Q6H PRN Administration FEVER Albuterol Sulfate 2 puff 10/06/19 00:25 Ventolin Hfa Inhaler - IH Q4H PRN SHORT OF BREATH/WHEEZING Apixaban 5 mg 10/06/19 10:00 10/23/19 09:29 Eliquis - PO 5 mg BID [facility]I Administration Atorvastatin Calcium 40 mg 10/06/19 22:00 10/22/19 21:33 Lipitor - PO 40 mg HS [facility] Administration Banana Based Medical Food 1 packet 10/20/19 22:00 10/23/19 06:02 Banatrol Plus Powder Packet PO 1 packet TID [facility] Administration Chlorhexidine Gluconate 1 applic 10/06/19 22:00 10/22/19 21:33 Hibiclens For Decolonization - TP 1 applic HS [facility] Administration Propofol 1,000,000 mcg in 100 mls @ 11.97 mls/hr 10/11/19 14:30 10/23/19 08:44 Diprivan - IVPB 40 mcg/kg/min TITR [facility] 15.96 mls/hr Titration Protocol 30 MCG/KG/MIN Fentanyl 500 mcg in 100 mls @ 10 mls/hr 10/20/19 12:45 10/23/19 09:17 Sublimaze Ivpb IVPB 100 mcg/hr TITR [facility] 20 mls/hr Administration Protocol 50 MCG/HR Cefepime HCl 1 gm/ Dextrose 100 mls @ 100 mls/hr 10/22/19 08:00 10/23/19 09:15 IVPB 100 mls/hr Q8H-IV [facility] Administration Protocol Dextrose/Sodium Chloride 1,000 mls @ 75 mls/hr 10/22/19 19:00 10/22/19 18:51 D5-1/2ns - IV 75 mls/hr ASDIR [facility] Administration Norepinephrine Bitartrate 16,000 mcg in 500 mls @ 9.375 mls/hr 10/22/19 21:45 10/23/19 08:17 Levophed Bag IVPB 8 mcg/min TITR [facility] 15 mls/hr Titration Protocol 5 MCG/MIN Insulin Aspart 1 vial 10/15/19 11:15 10/23/19 06:02 Novolog Vial Sliding Scale - SQ Not Given TIDAC [facility] Protocol Insulin Detemir 15 units 10/17/19 10:24 10/22/19 21:27 Levemir Vial SQ Not Given HS [facility] Methylprednisolone Sodium Succinate 30 mg 10/13/19 22:00 10/23/19 09:19 Solu-Medrol - IVPUSH 30 mg BID [facility] Administration Metoprolol Tartrate 5 mg 10/12/19 21:13 10/17/19 09:25 Lopressor Injection - IVPUSH 5 mg Q4H PRN Administration TACHYCARDIA Mirtazapine 15 mg 10/06/19 22:00 10/22/19 21:33 Remeron - PO 15 mg HS [facility] Administration Pantoprazole Sodium 40 mg 10/06/19 11:15 10/23/19 09:18 Protonix Iv IVPUSH 40 mg DAILY [facility] Administration Sotalol HCl 80 mg 10/10/19 22:30 10/23/19 09:21 Betapace - PO Not Given BID [facility] Laboratory Results - last 24 hr 10/22/19 10/22/19 10/22/19 12:30 17:20 21:19 WBC RBC Hgb Hct MCV MCH MCHC RDW Plt Count MPV Absolute Neuts (auto) Neutrophils % Lymphocytes % Monocytes % Eosinophils % Basophils % Nucleated RBC % Anticoagulation Therapy Puncture Site Patient Temperature ABG pH ABG pCO2 ABG pO2 ABG HCO3 ABG O2 Sat (Measured) ABG O2 Content ABG Base Excess Polo Test Patient On Oxygen O2 Delivery Device Oxygen Flow Rate Vent Mode Vent Rate Mechanical Rate PEEP Pressure Support Vent Sodium Potassium Chloride Carbon Dioxide Anion Gap BUN Creatinine Est GFR (CKD-EPI)AfAm Est GFR (CKD-EPI)NonAf POC Glucometer 137 76 66 Random Glucose Calcium Phosphorus Magnesium Total Bilirubin AST ALT Alkaline Phosphatase Total Protein Albumin 10/22/19 10/23/19 10/23/19 23:17 05:35 05:59 WBC RBC Hgb Hct MCV MCH MCHC RDW Plt Count MPV Absolute Neuts (auto) Neutrophils % Lymphocytes % Monocytes % Eosinophils % Basophils % Nucleated RBC % Anticoagulation Therapy No Result Required. Puncture Site Right radial Patient Temperature No Result Required. ABG pH 7.138 L* ABG pCO2 60.90 H ABG pO2 83.5 ABG HCO3 20.2 L ABG O2 Sat (Measured) 92.5 L ABG O2 Content No Result Required. ABG Base Excess -8.8 L Polo Test Positive Patient On Oxygen Yes O2 Delivery Device Vent Oxygen Flow Rate 80% Vent Mode A/c Vent Rate 14 Mechanical Rate Yes PEEP 7.0 Pressure Support Vent 450 Sodium Potassium Chloride Carbon Dioxide Anion Gap BUN Creatinine Est GFR (CKD-EPI)AfAm Est GFR (CKD-EPI)NonAf POC Glucometer 85 144 Random Glucose Calcium Phosphorus Magnesium Total Bilirubin AST ALT Alkaline Phosphatase Total Protein Albumin 10/23/19 10/23/19 06:00 06:00 WBC 20.0 H RBC 2.97 L Hgb 8.8 L Hct 27.6 L D MCV 93.2 MCH 29.6 MCHC 31.8 L RDW 16.4 H Plt Count 112 L MPV 9.2 Absolute Neuts (auto) 19.4 H Neutrophils % 97.0 H Lymphocytes % 2.2 L D Monocytes % 0.7 L Eosinophils % 0.0 Basophils % 0.1 Nucleated RBC % 0 Anticoagulation Therapy Puncture Site Patient Temperature ABG pH ABG pCO2 ABG pO2 ABG HCO3 ABG O2 Sat (Measured) ABG O2 Content ABG Base Excess Polo Test Patient On Oxygen O2 Delivery Device Oxygen Flow Rate Vent Mode Vent Rate Mechanical Rate PEEP Pressure Support Vent Sodium 140 Potassium 4.0 Chloride 110 H Carbon Dioxide 23 Anion Gap 6 L BUN 30.6 H Creatinine 0.7 Est GFR (CKD-EPI)AfAm 105.50 Est GFR (CKD-EPI)NonAf 91.03 POC Glucometer Random Glucose 138 H Calcium 6.5 L* Phosphorus 3.9 Magnesium 1.8 Total Bilirubin 0.8 AST 30 ALT 28 Alkaline Phosphatase 65 Total Protein 4.8 L Albumin 1.4 L S1 S2 Irregular Lungs decreased breath sounds Abd- soft, NT No edema diarrhea+ A/P acute respiratory failure Fever, pneumonitis CHF decompensation Aflutter leucocytosis suspected COVID -- though tests were negative anemia- s/p PRBC -- ICU management --s/p cardioversion -- rate control -- continue with meds --broad spectrum antibiotics -- prognosis is guarded -- on pressor support -- check cdiff stool-- negative -- family opting for compassionate wean per palliative RN note patient is DNR Problem List - Problems (1) Acute on chronic diastolic (congestive) heart failure Code(s): I50.33 - ACUTE ON CHRONIC DIASTOLIC (CONGESTIVE) HEART FAILURE (2) Acute respiratory failure with hypoxia Code(s): J96.01 - ACUTE RESPIRATORY FAILURE WITH HYPOXIA (3) Atrial fibrillation Code(s): I48.91 - UNSPECIFIED ATRIAL FIBRILLATION (4) GERD (gastroesophageal reflux disease) Code(s): K21.9 - GASTRO-ESOPHAGEAL REFLUX DISEASE WITHOUT ESOPHAGITIS (5) HTN (hypertension) Code(s): I10 - ESSENTIAL (PRIMARY) HYPERTENSION Qualifiers: Hypertension type: essential hypertension Qualified Code(s): I10 - Essential (primary) hypertension (6) Suspected 2019 novel coronavirus infection Code(s): Z20.828 - CONTACT W AND EXPOSURE TO [facility] VIRAL COMMUNICABLE DISEASES
[2019-10-24] MEDS ORDERED: FUROSEMIDE INJECTION 100 MG in DEXTROSE 5%-WATER - 90 ML IVPB SCH (11:00)
[2019-10-24] MEDS ORDERED: FENTANYL NS IVPB 500 MCG/100 ML BAG IVPB ONE (13:35)
[2019-10-24] MEDS: NOREPINEPHRINE D5W PREMIX 16,000 MCG/500 ML BAG IVPB SCH (21:43)
[2019-10-24] MEDS: CHLORHEXIDINE GLUCONATE 4% CLEANSER FOR DECOLONIZATION TP SCH (21:44)
[2019-10-24] MEDS: INSULIN (LEVEMIR) 100 UNITS/ML UNITS SQ SCH (21:45)
[2019-10-24] MEDS: MIRTAZAPINE 15 MG TABLET (FP) PO SCH (21:45)
[2019-10-24] MEDS: ATORVASTATIN CA 40 MG TABLET (FP) PO SCH (21:45)
[2019-10-25] MEDS ORDERED: CEFEPIME HCL 1 GM VIAL (RESTRICTED TO ID) ONE ×2 (01:54→08:11)
[2019-10-25] MEDS ORDERED: DEXTROSE 5%-WATER 100 ML IVPB ONE ×2 (01:54→08:11)
[2019-10-25] MEDS: CEFEPIME 1 GM in DEXTROSE 5%-WATER 100 ML IVPB SCH ×2 (01:58→10:45)
[2019-10-25] MEDS: BANATROL PLUS POWDER PACKET PO SCH (06:24)
[2019-10-25] MEDS: INSULIN SLIDING SCALE (NOVOLOG) 1 VIAL SQ SCH (06:27)
[2019-10-25 07:04] LABS: HEMATOCRIT 20.4 % (35.4-49); MCH 30.3 pg (25.7-33.7); MCHC 33.2 g/dl (32.0-35.9); MEAN CELL VOLUME 91.2 fl (80-96); PLATELET COUNT 78 K/MM3 (134-434); RBC 2.24 M/mm3 (4.00-5.60); RDW 16.3 % (11.9-15.9); WHITE BLOOD COUNT 10.1 K/mm3 (4.0-10.0)
[2019-10-25 07:20] LABS: HEMOGLOBIN 6.8 GM/dL (11.7-16.9)
[2019-10-25 07:27] LABS: BLOOD UREA NITROGEN 26.1 mg/dL (7-18); CREATININE 0.7 mg/dL (0.55-1.3); MAGNESIUM 1.7 mg/dL (1.8-2.4); N-TERMINAL BNP 28905.2 pg/ml (5-450); PHOSPHOROUS 2.7 mg/dL (2.5-4.9)
[2019-10-25] MEDS ORDERED: POTASSIUM CHLORIDE TABS 20 MEQ TABLET.ER (FP) PO ONE (07:44)
[2019-10-25] MEDS ORDERED: KCL 10 MEQ IVPB 10 MEQ/100 ML INFUS.BAG IVPB SCH (07:45)
[2019-10-25] MEDS: KCL 10 MEQ IVPB 10 MEQ/100 ML INFUS.BAG IVPB SCH ×3 (08:00→11:30)
[2019-10-25 08:03] LABS: CALCIUM 6.5 mg/dL (8.5-10.1); POTASSIUM 2.8 mmol/L (3.5-5.1)
[2019-10-25] MEDS ORDERED: PT OWN MED DRAWER 7, Y5N ONE (08:11)
[2019-10-25 08:37] LABS: ALBUMIN 1.2 g/dl (3.4-5.0)
--- NOTE | 2019-10-25 10:19 | PN ---
Progress Note, Physician History of Present Illness: This is a 78 y/o male with a significant medical history of Afib (on Eliquis), Angina, CHF, HTN, HLD, GI Bleed, recent admission 09/19-09/21 Suspected Covid, Afibrillation, stabalized and discharged. Who presents to the ED with difficulty breathing. Patient reports having progressive SOB while using O2. Patient denies fever, chills, dizziness, SPEARS, CP , palpitations, AP, N/V/D, constipation, dy suria. Patient denies sick contacts or recent travel. 09/23:I was called by home nurse yesterday that pt with tachycardia and SOB; Here febrile today; CT showed diffuse bilat pulmonary changes c/w Covid, slightly improved only ; new Covid test pending; elevated ferritin and CRP; normal trop; elevated BNP - Current Medication List Current Medications: Active Medications Acetaminophen (Tylenol -) 650 mg PO Q6H PRN PRN Reason: FEVER Last Admin: 10/13/19 17:17 Dose: 650 mg Documented by: Albuterol Sulfate (Ventolin Hfa Inhaler -) 2 puff IH Q4H PRN PRN Reason: SHORT OF BREATH/WHEEZING Apixaban (Eliquis -) 5 mg PO BID [facility] Last Admin: 10/24/19 21:44 Dose: 5 mg Documented by: Atorvastatin Calcium (Lipitor -) 40 mg PO [facility] Last Admin: 10/24/19 21:45 Dose: 40 mg Documented by: Banana Based Medical Food (Banatrol Plus Powder Packet) 1 packet PO TID [facility] Last Admin: 10/25/19 06:24 Dose: 1 packet Documented by: Chlorhexidine Gluconate (Hibiclens For Decolonization -) 1 applic TP [facility] Last Admin: 10/24/19 21:44 Dose: 1 applic Documented by: Propofol (Diprivan -) 1,000,000 mcg in 100 mls @ 11.97 mls/hr IVPB TITR [facility]; Protocol Last Admin: 10/24/19 19:00 Dose: 40 mcg/kg/min, 15.96 mls/hr Documented by: Fentanyl (Sublimaze Ivpb) 500 mcg in 100 mls @ 10 mls/hr IVPB TITR [facility]; Protocol Last Admin: 10/24/19 14:00 Dose: 100 mcg/hr, 20 mls/hr Documented by: Cefepime HCl 1 gm/ Dextrose 100 mls @ 100 mls/hr IVPB Q8H-IV [facility]; Protocol Last Admin: 10/25/19 01:58 Dose: 100 mls/hr Documented by: Norepinephrine Bitartrate (Levophed Bag) 16,000 mcg in 500 mls @ 9.375 mls/hr IVPB TITR [facility]; Protocol Last Admin: 10/24/19 21:43 Dose: Not Given Documented by: Furosemide 100 mg/ Dextrose 100 mls @ 10 mls/hr IVPB TITR [facility]; Protocol Last Admin: 10/24/19 11:36 Dose: 10 mg/hr, 10 mls/hr Documented by: Potassium Chloride (Potassium Chloride 10 Meq Premix Ivpb -) 10 meq in 100 mls @ 100 mls/hr IVPB Q60M [facility] Stop: 10/25/19 10:44 Insulin Aspart (Novolog Vial Sliding Scale -) 1 vial SQ TIDAC [facility]; Protocol Last Admin: 10/25/19 06:27 Dose: Not Given Documented by: Insulin Detemir (Levemir Vial) 15 units SQ [facility] Last Admin: 10/24/19 21:45 Dose: 15 units Documented by: Methylprednisolone Sodium Succinate (Solu-Medrol -) 30 mg IVPUSH BID [facility] Last Admin: 10/24/19 21:45 Dose: 30 mg Documented by: Metoprolol Tartrate (Lopressor Injection -) 5 mg IVPUSH Q4H PRN PRN Reason: TACHYCARDIA Last Admin: 10/24/19 08:30 Dose: 5 mg Documented by: Mirtazapine (Remeron -) 15 mg PO [facility] Last Admin: 10/24/19 21:45 Dose: 15 mg Documented by: Pantoprazole Sodium (Protonix Iv) 40 mg IVPUSH DAILY [facility] Last Admin: 10/24/19 09:10 Dose: 40 mg Documented by: Sotalol HCl (Betapace -) 80 mg PO BID [facility] Last Admin: 10/24/19 21:44 Dose: 80 mg Documented by: - Objective Vital Signs: Vital Signs Temperature 98.9 F 10/25/19 06:00 Pulse Rate 87 10/25/19 09:00 Respiratory Rate 24 H 10/25/19 09:00 Blood Pressure 95/46 L 10/25/19 09:00 O2 Sat by Pulse Oximetry (%) 98 10/25/19 09:00 Eyes: Yes: WNL, Conjunctiva Clear, EOM Intact HENT: Yes: WNL, Atraumatic, Normocephalic Neck: Yes: WNL, Supple, Trachea Midline Cardiovascular: Yes: WNL, Regular Rate and Rhythm, S1, S2 Respiratory: Yes: Diminished, Intubated, Mechanically Ventilated Gastrointestinal: Yes: WNL, Normal Bowel Sounds Genitourinary: Yes: WNL Musculoskeletal: Yes: WNL Extremities: Yes: WNL Edema: No Integumentary: Yes: WNL Labs: CBC, BMP 10/25/19 05:00 10/25/19 06:00 INR, PTT INR 1.52 (0.83-1.09) H 10/21/19 05:40 Fibrinogen > 500.0 mg/dL (238-498) H 10/08/19 06:30 Assessment/Plan - Problems (1) Acute on chronic diastolic (congestive) heart failure Code(s): I50.33 - ACUTE ON CHRONIC DIASTOLIC (CONGESTIVE) HEART FAILURE (2) Acute respiratory failure with hypoxia Code(s): J96.01 - ACUTE RESPIRATORY FAILURE WITH HYPOXIA (3) Aortic valve stenosis Code(s): I35.0 - NONRHEUMATIC AORTIC (VALVE) STENOSIS Qualifiers: Cardiac valve disease etiology: nonrheumatic Qualified Code(s): I35.0 - Nonrheumatic aortic (valve) stenosis (4) Atrial flutter Code(s): I48.92 - UNSPECIFIED ATRIAL FLUTTER Qualifiers: Atrial flutter type: typical Qualified Code(s): I48.3 - Typical atrial flutter (5) CAD (coronary artery disease) Code(s): I25.10 - ATHSCL HEART DISEASE OF [place] CORONARY ARTERY W/O ANG PCTRS Qualifiers: Coronary Disease-Associated Artery/Lesion type: [place] artery [place] vs. transplanted heart: [place] heart Associated angina: without angina Qualified Code(s): I25.10 - Atherosclerotic heart disease of [place] coronary artery without angina pectoris (6) HTN (hypertension) Code(s): I10 - ESSENTIAL (PRIMARY) HYPERTENSION Qualifiers: Hypertension type: essential hypertension Qualified Code(s): I10 - Essential (primary) hypertension (7) Hx of CABG Code(s): Z95.1 - PRESENCE OF AORTOCORONARY BYPASS GRAFT (8) Hypercholesterolemia Code(s): E78.00 - PURE HYPERCHOLESTEROLEMIA, UNSPECIFIED (9) S/P AVR (aortic valve replacement) Code(s): Z95.2 - PRESENCE OF PROSTHETIC HEART VALVE (10) S/P left atrial appendage ligation Code(s): Z98.890 - OTHER SPECIFIED POSTPROCEDURAL STATES (11) Suspected COVID-19 virus infection Code(s): Z20.828 - CONTACT W AND EXPOSURE TO [facility] VIRAL COMMUNICABLE DISEASES Assessment/Plan Echo 09/03/2019 Post-op septal motion, normal LVEF 50-55%, mod cLVH, normal RV size and fxn, mild LAE, mild MR, TR, bioAVR, mild AR, restrictive physiology Echocardiography October 12, 2018 revealed mild degree of concentric left jordon tricular hypertrophy with normal left ventricular systolic function and estimated LVEF between 65-70%, mild left atrial dilatation, normal right ventricular size and systolic function, aortic valve bioprosthesis with no aortic valve insufficiency, moderately dilated ascending aorta, mild thickening of the mitral valve leaflets with mild mitral valve regurgitation, mild to moderate tricuspid valve regurgitation with calculated RVSP of [address]: Small-moderate right and very small left effusion, pulm edema TAA 3.9 cm 1. Clinical presentation is consistent with acute hypoxic respiratory failure related to bronchopneumonia with sepsis syndrome, coronavirus/COVID 19- persist ent residual infiltrates 2. Diastolic left ventricular dysfunction with chronic class I-II NYHA clas sification left ventricular failure 3. Paroxysmal atrial flutter [id number] score of 5 post cardioversion on DOAC's/Eliquis 4. CAD post CABG with evidence of demand ischemia related to the above-noted clinical presentation angina pectoris 5. Aortic valve stenosis post SAVR/bio-prosthesis- with LA appendage ligation 6. Hypertensive cardiovascular disease, intermittent hypotension related to the above-noted sepsis syndrome 7. Hyperglycemia- diabetes mellitus 8. Hypercholesterolemia 9. History of altered mental status etiology of which was unclear- prior history of clinical depression 10. GURU resolved 11. Anemia post-transfusion 12. Suspected ileus PLAN: 1. Weaned off Levophed 2. Continue Sotalol 80 bid with caution and close monitoring of QTc interval, IV Lopressor as needed for rate-control 3. Continue Atorvastatin 40 qd 4. Continue DOAC's/Eliquis 5 bid with caution and close monitoring of hemoglobin level, maintaining hemoglobin level equal or greater than 8.0 5. Withhold Lasix therapy in view of the above-noted prerenal azotemia 6. Antibiotics as per the primary team, IV steroid taper, vent wean as tolerated, enteral feeds as tolerated, c. diff negative Overall poor prognosis Coverage for dr. Esqueda cc time spent 35 min
[2019-10-25] MEDS: PANTOPRAZOLE SODIUM 40 MG VIAL IVPUSH SCH (10:44)
[2019-10-25] MEDS: methylPREDNISolone NA SUCC 40 MG/1 ML VIAL IVPUSH SCH (10:45)
[2019-10-25] MEDS: SOTALOL HCL 80 MG TABLET (FP) PO SCH (10:45)
[2019-10-25] MEDS: APIXABAN 5 MG TABLET PO SCH (10:46)
--- NOTE | 2019-10-25 12:21 | PN ---
Teaching Attending Note Name of Resident: Rubin Valdes ATTENDING PHYSICIAN STATEMENT I saw and evaluated the patient. I reviewed the resident's note and discussed the case with the resident. I agree with the resident's findings and plan as documented. SUBJECTIVE: Patient seen and examined in the ICU. Remains intubated and sedated. AC Mode of vent. NE for hemodynamic support. Intake & Output 10/22/19 10/23/19 10/24/19 10/25/19 23:59 23:59 23:59 23:59 Intake Total 2932 2629 2253.5 856 Output Total 6466 270 7673 500 Balance 1732 1829 -746.5 356 Weight 176 lb 12.972 oz 176 lb 5.917 oz 181 lb 10.574 oz 181 lb 10.574 oz Last Vital Signs Temp Pulse Resp BP Pulse Ox 98.9 F 87 24 H 95/46 L 97 10/25/19 06:00 10/25/19 09:00 10/25/19 11:31 10/25/19 09:00 10/25/19 11:31 Active Medications Acetaminophen (Tylenol -) 650 mg PO Q6H PRN PRN Reason: FEVER Last Admin: 10/13/19 17:17 Dose: 650 mg Documented by: Albuterol Sulfate (Ventolin Hfa Inhaler -) 2 puff IH Q4H PRN PRN Reason: SHORT OF BREATH/WHEEZING Apixaban (Eliquis -) 5 mg PO BID [facility] Last Admin: 10/25/19 10:46 Dose: 5 mg Documented by: Atorvastatin Calcium (Lipitor -) 40 mg PO [facility] Last Admin: 10/24/19 21:45 Dose: 40 mg Documented by: Banana Based Medical Food (Banatrol Plus Powder Packet) 1 packet PO TID [facility] Last Admin: 10/25/19 06:24 Dose: 1 packet Documented by: Chlorhexidine Gluconate (Hibiclens For Decolonization -) 1 applic TP [facility] Last Admin: 10/24/19 21:44 Dose: 1 applic Documented by: Propofol (Diprivan -) 1,000,000 mcg in 100 mls @ 11.97 mls/hr IVPB TITR [facility]; Protocol Last Admin: 10/24/19 19:00 Dose: 40 mcg/kg/min, 15.96 mls/hr Documented by: Fentanyl (Sublimaze Ivpb) 500 mcg in 100 mls @ 10 mls/hr IVPB TITR [facility]; Protocol Last Admin: 10/24/19 14:00 Dose: 100 mcg/hr, 20 mls/hr Documented by: Cefepime HCl 1 gm/ Dextrose 100 mls @ 100 mls/hr IVPB Q8H-IV [facility]; Protocol Last Admin: 10/25/19 10:45 Dose: 100 mls/hr Documented by: Norepinephrine Bitartrate (Levophed Bag) 16,000 mcg in 500 mls @ 9.375 mls/hr IVPB TITR [facility]; Protocol Last Admin: 10/24/19 21:43 Dose: Not Given Documented by: Furosemide 100 mg/ Dextrose 100 mls @ 10 mls/hr IVPB TITR [facility]; Protocol Last Admin: 10/24/19 11:36 Dose: 10 mg/hr, 10 mls/hr Documented by: Insulin Aspart (Novolog Vial Sliding Scale -) 1 vial SQ TIDAC [facility]; Protocol Last Admin: 10/25/19 06:27 Dose: Not Given Documented by: Insulin Detemir (Levemir Vial) 15 units SQ [facility] Last Admin: 10/24/19 21:45 Dose: 15 units Documented by: Methylprednisolone Sodium Succinate (Solu-Medrol -) 30 mg IVPUSH BID [facility] Last Admin: 10/25/19 10:45 Dose: 30 mg Documented by: Metoprolol Tartrate (Lopressor Injection -) 5 mg IVPUSH Q4H PRN PRN Reason: TACHYCARDIA Last Admin: 10/24/19 08:30 Dose: 5 mg Documented by: Mirtazapine (Remeron -) 15 mg PO HS [facility] Last Admin: 10/24/19 21:45 Dose: 15 mg Documented by: Pantoprazole Sodium (Protonix Iv) 40 mg IVPUSH DAILY [facility] Last Admin: 10/25/19 10:44 Dose: 40 mg Documented by: Sotalol HCl (Betapace -) 80 mg PO BID [facility] Last Admin: 10/25/19 10:45 Dose: 80 mg Documented by: GEN: Elderly man, intubated, sedated on the Vent PULM: CTAB CV: RRR ABD: Protuberant, hypo-active BS, S/S N/T N/D X4Q EXT: + Pulses, WWP X4, + edema Laboratory Results - last 24 hr 10/20/19 10/24/19 10/25/19 19:40 18:54 05:00 WBC 10.1 H RBC 2.24 L Hgb 6.8 L* Hct 20.4 L MCV 91.2 MCH 30.3 MCHC 33.2 RDW 16.3 H Plt Count 78 L MPV 9.0 Sodium Potassium Chloride Carbon Dioxide Anion Gap BUN Creatinine Est GFR (CKD-EPI)AfAm Est GFR (CKD-EPI)NonAf POC Glucometer 151 Random Glucose Calcium Phosphorus Magnesium B-Natriuretic Peptide Albumin Crossmatch See Detail 10/25/19 10/25/19 10/25/19 06:00 06:26 11:13 WBC RBC Hgb Hct MCV MCH MCHC RDW Plt Count MPV Sodium 138 Potassium 2.8 L* Chloride 107 Carbon Dioxide 26 Anion Gap 6 L BUN 26.1 H Creatinine 0.7 Est GFR (CKD-EPI)AfAm 105.50 Est GFR (CKD-EPI)NonAf 91.03 POC Glucometer 135 Random Glucose 128 H Calcium 6.5 L* Phosphorus 2.7 Magnesium 1.7 L B-Natriuretic Peptide 96046.2 H Albumin 1.2 L Crossmatch See Detail 10/25/19 11:58 WBC RBC Hgb Hct MCV MCH MCHC RDW Plt Count MPV Sodium Potassium Chloride Carbon Dioxide Anion Gap BUN Creatinine Est GFR (CKD-EPI)AfAm Est GFR (CKD-EPI)NonAf POC Glucometer 68 Random Glucose Calcium Phosphorus Magnesium B-Natriuretic Peptide Albumin Crossmatch ASSESS: Acute Hypoxic Respiratory Failure i/s/o Kleb Pna ARDS Sepsis Acute Kidney Injury Paroxysmal Atrial Fibrillation CAD s/p CABG Aortic Stenosis s/p AVR HTN Hypercholesterolemia Anemia PLAN: - AC Mode of vent - Titrate FiO2 for SaO2>92% - sedate for vent synchrony - continue Cefepime - monitor urine output, creatinine - Strict I & O - taper steroids - continue anticoagulation - cont rate control w/ the sotalol - Insulin coverage scale - DVT/GI prophylaxis - continue ICU monitoring Moving toward compassionate extubation. Family considering today. In agreement that compassionate extubation is the best course at this point given his grave prognosis. Dr Gonzalez Critical care time spent in reviewing chart, evaluating patient and formulating plan - 36 minutes.
[2019-10-25 12:25] LABS: BILIRUBIN,DIRECT 0.2 mg/dL (0.0-0.2); BILIRUBIN,TOTAL 0.5 mg/dL (0.2-1); TOT PROT 4.5 g/dl (6.4-8.2)
[2019-10-25] MEDS ORDERED: morphine SULFATE 4 MG/ML VIAL IVPUSH ONE (12:29)
[2019-10-25] MEDS ORDERED: MORPHINE SULFATE/0.9% NACL/PF 100 MG/100 ML BAG IVPB SCH (12:30)
--- NOTE | 2019-10-25 12:34 | PN ---
Physical Exam: SUBJECTIVE: Patient seen and examined Spoke to Shreyas and the patient's Wish to have terminal extubation Patient to be terminally extubated and all medications ceased with morphine drip ordered. OBJECTIVE: Vital Signs Period Temp Pulse Resp BP Sys/Amador Pulse Ox Last 24 Hr 97.6 F-99.1 F 70-118 18-28 84-126/43-67 96-100 GENERAL: The patient is awake, alert, and fully oriented, in no acute distress. HEAD: Normal with no signs of trauma. EYES: PERRL, extraocular movements intact, sclera anicteric, conjunctiva clear. No ptosis. ENT: Ears normal, nares patent, oropharynx clear without exudates, moist mucous membranes. NECK: Trachea midline, full range of motion, supple. LUNGS: Breath sounds equal, clear to auscultation bilaterally, no wheezes, no crackles, no accessory muscle use. HEART: Regular rate and rhythm, S1, S2 without murmur, rub or gallop. ABDOMEN: Soft, nontender, nondistended, normoactive bowel sounds, no guarding, no rebound, no hepatosplenomegaly, no masses. EXTREMITIES: 2+ pulses, warm, well-perfused, no edema. NEUROLOGICAL: Cranial nerves II through XII grossly intact. Normal speech, gait not observed. PSYCH: Normal mood, normal affect. SKIN: Warm, dry, normal turgor, no rashes or lesions noted Laboratory Results - last 24 hr 10/20/19 10/24/19 10/25/19 19:40 18:54 05:00 WBC 10.1 H RBC 2.24 L Hgb 6.8 L* Hct 20.4 L MCV 91.2 MCH 30.3 MCHC 33.2 RDW 16.3 H Plt Count 78 L MPV 9.0 Sodium Potassium Chloride Carbon Dioxide Anion Gap BUN Creatinine Est GFR (CKD-EPI)AfAm Est GFR (CKD-EPI)NonAf POC Glucometer 151 Random Glucose Calcium Phosphorus Magnesium Total Bilirubin Direct Bilirubin AST ALT Alkaline Phosphatase B-Natriuretic Peptide Total Protein Albumin Crossmatch See Detail 10/25/19 10/25/19 10/25/19 06:00 06:26 11:13 WBC RBC Hgb Hct MCV MCH MCHC RDW Plt Count MPV Sodium 138 Potassium 2.8 L* Chloride 107 Carbon Dioxide 26 Anion Gap 6 L BUN 26.1 H Creatinine 0.7 Est GFR (CKD-EPI)AfAm 105.50 Est GFR (CKD-EPI)NonAf 91.03 POC Glucometer 135 Random Glucose 128 H Calcium 6.5 L* Phosphorus 2.7 Magnesium 1.7 L Total Bilirubin 0.5 Direct Bilirubin 0.2 AST 36 ALT 29 Alkaline Phosphatase 71 B-Natriuretic Peptide 51282.2 H Total Protein 4.5 L Albumin 1.2 L Crossmatch See Detail 10/25/19 11:58 WBC RBC Hgb Hct MCV MCH MCHC RDW Plt Count MPV Sodium Potassium Chloride Carbon Dioxide Anion Gap BUN Creatinine Est GFR (CKD-EPI)AfAm Est GFR (CKD-EPI)NonAf POC Glucometer 68 Random Glucose Calcium Phosphorus Magnesium Total Bilirubin Direct Bilirubin AST ALT Alkaline Phosphatase B-Natriuretic Peptide Total Protein Albumin Crossmatch Active Medications Generic Name Dose Route Start Last Admin Trade Name Freq PRN Reason Stop Dose Admin Acetaminophen 650 mg 10/06/19 00:25 10/13/19 17:17 Tylenol - PO 650 mg Q6H PRN Administration FEVER Albuterol Sulfate 2 puff 10/06/19 00:25 Ventolin Hfa Inhaler - IH Q4H PRN SHORT OF BREATH/WHEEZING Apixaban 5 mg 10/06/19 10:00 10/25/19 10:46 Eliquis - PO 5 mg BID [facility] Administration Atorvastatin Calcium 40 mg 10/06/19 22:00 10/24/19 21:45 Lipitor - PO 40 mg HS [facility] Administration Banana Based Medical Food 1 packet 10/20/19 22:00 10/25/19 06:24 Banatrol Plus Powder Packet PO 1 packet TID [facility] Administration Chlorhexidine Gluconate 1 applic 10/06/19 22:00 10/24/19 21:44 Hibiclens For Decolonization - TP 1 applic HS [facility] Administration Cefepime HCl 1 gm/ Dextrose 100 mls @ 100 mls/hr 10/22/19 08:00 10/25/19 10:45 IVPB 100 mls/hr Q8H-IV [facility] Administration Protocol Norepinephrine Bitartrate 16,000 mcg in 500 mls @ 9.375 mls/hr 10/22/19 21:45 10/24/19 21:43 Levophed Bag IVPB Not Given TITR [facility] Protocol 5 MCG/MIN Furosemide 100 mg/ Dextrose 100 mls @ 10 mls/hr 10/24/19 11:00 10/24/19 11:36 IVPB 10 mg/hr TITR [facility] 10 mls/hr Administration Protocol 10 MG/HR Morphine Sulfate 100 mg in 100 mls @ 4 mls/hr 10/25/19 12:30 Morphine 100mg/100ml-0.9% Nacl IVPB 10/26/19 12:29 TITR [facility] Protocol 4 MG/HR Insulin Aspart 1 vial 10/15/19 11:15 10/25/19 06:27 Novolog Vial Sliding Scale - SQ Not Given TIDAC [facility] Protocol Insulin Detemir 15 units 10/17/19 10:24 10/24/19 21:45 Levemir Vial SQ 15 units HS [facility] Administration Methylprednisolone Sodium Succinate 30 mg 10/13/19 22:00 10/25/19 10:45 Solu-Medrol - IVPUSH 30 mg BID [facility] Administration Metoprolol Tartrate 5 mg 10/12/19 21:13 10/24/19 08:30 Lopressor Injection - IVPUSH 5 mg Q4H PRN Administration TACHYCARDIA Mirtazapine 15 mg 10/06/19 22:00 10/24/19 21:45 Remeron - PO 15 mg HS [facility] Administration Pantoprazole Sodium 40 mg 10/06/19 11:15 10/25/19 10:44 Protonix Iv IVPUSH 40 mg DAILY [facility] Administration Sotalol HCl 80 mg 10/10/19 22:30 10/25/19 10:45 Betapace - PO 80 mg BID [facility] Administration ASSESSMENT/PLAN: ATTENDING PHYSICIAN STATEMENT I saw and evaluated the patient. I reviewed the resident's note and discussed the case with the resident. I agree with the resident's findings and plan as documented. SUBJECTIVE: OBJECTIVE: ASSESSMENT AND PLAN:
--- NOTE | 2019-10-25 12:46 | PN ---
Progress Note (short form) - Note Progress Note: remains intubated clinically worse Vital Signs - 24 hr 10/24/19 10/24/19 10/24/19 14:00 15:00 15:39 Temperature 97.8 F 97.9 F Pulse Rate 74 71 Respiratory 24 H 25 H Rate Blood Pressure 109/52 L 109/62 O2 Sat by Pulse Oximetry (%) 10/24/19 10/24/19 10/24/19 15:50 16:00 17:00 Temperature 97.6 F Pulse Rate 70 71 Respiratory 25 H 24 H 24 H Rate Blood Pressure 96/48 L 99/50 L O2 Sat by Pulse 96 Oximetry (%) 10/24/19 10/24/19 10/24/19 18:00 20:00 20:10 Temperature Pulse Rate 78 74 70 Respiratory 24 H 24 H 24 H Rate Blood Pressure 102/56 L 99/48 L O2 Sat by Pulse 98 98 Oximetry (%) 10/24/19 10/24/19 10/25/19 21:00 22:00 00:00 Temperature 98.1 F Pulse Rate 80 82 Respiratory 24 H 24 H 28 H Rate Blood Pressure 90/54 L 84/43 L O2 Sat by Pulse 98 100 100 Oximetry (%) 10/25/19 10/25/19 10/25/19 00:20 01:00 02:00 Temperature 99.1 F Pulse Rate 84 90 Respiratory 24 H 18 24 H Rate Blood Pressure 102/50 L 126/67 O2 Sat by Pulse 99 99 99 Oximetry (%) Current Medications Generic Name Dose Route Start Last Admin Trade Name Freq PRN Reason Stop Dose Admin Acetaminophen 650 mg 10/06/19 00:25 10/13/19 17:17 Tylenol - PO 650 mg Q6H PRN Administration FEVER Albuterol Sulfate 2 puff 10/06/19 00:25 Ventolin Hfa Inhaler - IH Q4H PRN SHORT OF BREATH/WHEEZING Morphine Sulfate 100 mg in 100 mls @ 4 mls/hr 10/25/19 12:30 Morphine 100mg/100ml-0.9% Nacl IVPB 10/26/19 12:29 TITR [facility] Protocol 4 MG/HR Potassium Chloride 40 meq 10/25/19 13:30 Potassium Chloride Oral Liquid PO 10/25/19 13:31 ONCE ONE Laboratory Results - last 24 hr 10/20/19 10/24/19 10/25/19 19:40 18:54 05:00 WBC 10.1 H RBC 2.24 L Hgb 6.8 L* Hct 20.4 L MCV 91.2 MCH 30.3 MCHC 33.2 RDW 16.3 H Plt Count 78 L MPV 9.0 Sodium Potassium Chloride Carbon Dioxide Anion Gap BUN Creatinine Est GFR (CKD-EPI)AfAm Est GFR (CKD-EPI)NonAf POC Glucometer 151 Random Glucose Calcium Phosphorus Magnesium Total Bilirubin Direct Bilirubin AST ALT Alkaline Phosphatase B-Natriuretic Peptide Total Protein Albumin Blood Type Antibody Screen Crossmatch See Detail 10/25/19 10/25/19 10/25/19 06:00 06:26 11:13 WBC RBC Hgb Hct MCV MCH MCHC RDW Plt Count MPV Sodium 138 Potassium 2.8 L* Chloride 107 Carbon Dioxide 26 Anion Gap 6 L BUN 26.1 H Creatinine 0.7 Est GFR (CKD-EPI)AfAm 105.50 Est GFR (CKD-EPI)NonAf 91.03 POC Glucometer 135 Random Glucose 128 H Calcium 6.5 L* Phosphorus 2.7 Magnesium 1.7 L Total Bilirubin 0.5 Direct Bilirubin 0.2 AST 36 ALT 29 Alkaline Phosphatase 71 B-Natriuretic Peptide 21154.2 H Total Protein 4.5 L Albumin 1.2 L Blood Type Cancelled Antibody Screen Cancelled Crossmatch See Detail 10/25/19 11:58 WBC RBC Hgb Hct MCV MCH MCHC RDW Plt Count MPV Sodium Potassium Chloride Carbon Dioxide Anion Gap BUN Creatinine Est GFR (CKD-EPI)AfAm Est GFR (CKD-EPI)NonAf POC Glucometer 68 Random Glucose Calcium Phosphorus Magnesium Total Bilirubin Direct Bilirubin AST ALT Alkaline Phosphatase B-Natriuretic Peptide Total Protein Albumin Blood Type Antibody Screen Crossmatch S1 S2 Irregular Lungs decreased breath sounds Abd- soft, NT No edema diarrhea+ A/P acute respiratory failure Fever, pneumonitis CHF decompensation Aflutter leucocytosis suspected COVID -- though tests were negative anemia- s/p PRBC -- ICU management,spoke with ICU team for compassionate wean today-- family has agreed -- prognosis is poor -- supportive care only patient is DNR Problem List - Problems (1) Acute on chronic diastolic (congestive) heart failure Code(s): I50.33 - ACUTE ON CHRONIC DIASTOLIC (CONGESTIVE) HEART FAILURE (2) Acute respiratory failure with hypoxia Code(s): J96.01 - ACUTE RESPIRATORY FAILURE WITH HYPOXIA (3) Atrial fibrillation Code(s): I48.91 - UNSPECIFIED ATRIAL FIBRILLATION (4) GERD (gastroesophageal reflux disease) Code(s): K21.9 - GASTRO-ESOPHAGEAL REFLUX DISEASE WITHOUT ESOPHAGITIS (5) HTN (hypertension) Code(s): I10 - ESSENTIAL (PRIMARY) HYPERTENSION Qualifiers: Hypertension type: essential hypertension Qualified Code(s): I10 - Essential (primary) hypertension (6) Suspected 2019 novel coronavirus infection Code(s): Z20.828 - CONTACT W AND EXPOSURE TO [facility]IRAL COMMUNICABLE DISEASES
--- NOTE | 2019-10-25 13:28 | DS ---
Physical Examination Vital Signs: Vital Signs Temperature 98.9 F 10/25/19 06:00 Pulse Rate 87 10/25/19 09:00 Respiratory Rate 24 H 10/25/19 11:31 Blood Pressure 95/46 L 10/25/19 09:00 O2 Sat by Pulse Oximetry (%) 97 10/25/19 11:31 Labs: CBC, BMP 10/25/19 05:00 10/25/19 06:00 Discharge Summary Problems reviewed: Yes Reason For Visit: ACUTE ON CHRONIC DIASTOLIC CONGESTIVE HEART Current Active Problems Acute on chronic diastolic (congestive) heart failure (Acute) Acute respiratory failure with hypoxia (Acute) Hospital Course: Admitting History and Physical - Primary Care Physician PCP: Kg Mccain - Admission Chief Complaint: SOB History of Present Illness: This is a 78 y/o male with a significant medical history of Afib (on Eliquis), Angina, CHF, HTN, HLD, GI Bleed, recent admission 09/19-09/21 Suspected Covid, Afibrillation, ACS. Who presents to the ED with difficulty breathing. Patient reports having progressive SOB while using O2. Patient denies fever, chills, dizziness, SPEARS, CP , palpitations, AP, N/V/D, constipation, dysuria. Patient denies sick contacts or recent travel. Long Hospital stay was on iv lasix, antibiotics, solumedrol seen by ID, Pulmonary and Cardiology strong suspicion for COVID with elevated inflammatory markers and CT imaging, though COVID PCR and serology negative Afib was uncontrolled, sob getting worse- his oxygen requirements were high Pt had underwent cardioversion for rate control He went into acute respiratory failure requiring intubation Was transferred to ICU-- started on pressors, broad spectrum antibiotics Sputum cultures showed klebsiella Vent management-- pt required high peep and FiO2 Pt clinically was not getting better, he was unable to wean, was on pressor support Family decided for DNR Compassionate extubated today Pt 1:06 pm 10/25/2019 Condition: Fair - Instructions Disposition: HOME - Home Medications Comprehensive Discharge Medication List: Ambulatory Orders Acetaminophen [Tylenol .Regular Strength -] 650 mg PO Q4H PRN tablet 09/13/19 Albuterol Sulfate Inhaler - [Ventolin HFA Inhaler -] 2 puff IH Q4H PRN inhaler 09/13/19 Apixaban [Eliquis -] 5 mg PO BID #60 tablet 09/22/19 Atorvastatin Ca [Lipitor] 40 mg PO HS #30 tablet 09/22/19 Diltiazem Cd [Cardizem Cd -] 120 mg PO DAILY #30 cap.cd.24h 09/22/19 Furosemide [Lasix -] 20 mg PO DAILY #30 tablet 09/22/19 Metoprolol Succinate [Toprol Xl] 100 mg PO BID #60 tab.er.24h 09/22/19 Pantoprazole Sodium [Protonix -] 40 mg PO DAILY #30 tablet.ec 09/22/19 Diltiazem Cd [Cardizem Cd -] 180 mg PO DAILY #30 cap.cd.24h 09/30/19 Furosemide [Lasix -] 20 mg PO DAILY #30 tablet 09/30/19 predniSONE [Deltasone -] 10 mg PO DAILY #3 tablet 09/30/19
[2019-10-25] MEDS ORDERED: POTASSIUM CHLORIDE ORAL LIQUID 20 MEQ/15 ML PO ONE (13:30)
--- NOTE | 2019-10-25 14:00 | PN ---
Physical Exam: SUBJECTIVE: Patient seen and examined. Intubated and sedated. Pt family called today who would like compassionate extubation. OBJECTIVE: GENERAL: Intubated and sedated HEAD: No signs of trauma, normocephalic, atraumatic EYES: PERRLA, EOMI, sclera anicteric, conjunctiva clear LUNGS: Bilateral scattered rhonchi HEART: Regular rate and rhythm, normal S1 and S2, no murmurs, rubs or gallops, peripheral pulses normal and equal bilaterally. ABDOMEN: Abdomen distended : ditended testicles EXTREMITIES : Lower ext swelling bilaterally NEUROLOGICAL: Pt sedated Vital Signs Period Temp Pulse Resp BP Sys/Amador Pulse Ox Last 24 Hr 97.6 F-99.1 F 70-118 18-28 84-126/43-67 96-100 Laboratory Results - last 24 hr 10/20/19 10/24/19 10/25/19 19:40 18:54 05:00 WBC 10.1 H RBC 2.24 L Hgb 6.8 L* Hct 20.4 L MCV 91.2 MCH 30.3 MCHC 33.2 RDW 16.3 H Plt Count 78 L MPV 9.0 Sodium Potassium Chloride Carbon Dioxide Anion Gap BUN Creatinine Est GFR (CKD-EPI)AfAm Est GFR (CKD-EPI)NonAf POC Glucometer 151 Random Glucose Calcium Phosphorus Magnesium Total Bilirubin Direct Bilirubin AST ALT Alkaline Phosphatase B-Natriuretic Peptide Total Protein Albumin Blood Type Antibody Screen Crossmatch See Detail 10/25/19 10/25/19 10/25/19 06:00 06:26 11:13 WBC RBC Hgb Hct MCV MCH MCHC RDW Plt Count MPV Sodium 138 Potassium 2.8 L* Chloride 107 Carbon Dioxide 26 Anion Gap 6 L BUN 26.1 H Creatinine 0.7 Est GFR (CKD-EPI)AfAm 105.50 Est GFR (CKD-EPI)NonAf 91.03 POC Glucometer 135 Random Glucose 128 H Calcium 6.5 L* Phosphorus 2.7 Magnesium 1.7 L Total Bilirubin 0.5 Direct Bilirubin 0.2 AST 36 ALT 29 Alkaline Phosphatase 71 B-Natriuretic Peptide 85224.2 H Total Protein 4.5 L Albumin 1.2 L Blood Type Cancelled Antibody Screen Cancelled Crossmatch See Detail 10/25/19 11:58 WBC RBC Hgb Hct MCV MCH MCHC RDW Plt Count MPV Sodium Potassium Chloride Carbon Dioxide Anion Gap BUN Creatinine Est GFR (CKD-EPI)AfAm Est GFR (CKD-EPI)NonAf POC Glucometer 68 Random Glucose Calcium Phosphorus Magnesium Total Bilirubin Direct Bilirubin AST ALT Alkaline Phosphatase B-Natriuretic Peptide Total Protein Albumin Blood Type Antibody Screen Crossmatch Active Medications Generic Name Dose Route Start Last Admin Trade Name Freq PRN Reason Stop Dose Admin Acetaminophen 650 mg 10/06/19 00:25 10/13/19 17:17 Tylenol - PO 650 mg Q6H PRN Administration FEVER Albuterol Sulfate 2 puff 10/06/19 00:25 Ventolin Hfa Inhaler - IH Q4H PRN SHORT OF BREATH/WHEEZING Morphine Sulfate 100 mg in 100 mls @ 4 mls/hr 10/25/19 12:30 Morphine 100mg/100ml-0.9% Nacl IVPB 10/26/19 12:29 TITR [facility] Protocol 4 MG/HR ASSESSMENT/PLAN: 78 yo male coming in with possible covid pneumonitis or ARDS Neuro: - sedated on fentanyl and propofol Cardio - pt on norepi 2 - pt afib with lopressor 5mg prn Resp - pt vfet4as on R:24, Tv: 450, PEEP 7 FIO2 70% pplat 25 GI: - pt currently have diarrhea but cdif negative - pt renal function has improved will cont monitoring I&O FEN - will monitor electrolytes Dispo: - pt family wants to compassionate extubation will DC all meds and make pt comfortable Visit type - Emergency Visit Emergency Visit: Yes ED Registration Date: 09/23/19 Care time: The patient presented to the Emergency Department on the above date and was hospitalized for further evaluation of their emergent condition. - New Patient This patient is new to me today: No - Critical Care Critical Care patient: Yes Total Critical Care Time (in minutes): 36 Critical Care Statement: The care of this patient involved high complexity decision making to prevent further life threatening deterioration of the patient's condition and/or to evaluate & treat vital organ system(s) failure or risk of failure. - Discharge Referral Physician Referral: Gerald Mckeon MD ([facility]) - Medication Review Med list reviewed for High Risk Meds patients 65 and older: Yes ATTENDING PHYSICIAN STATEMENT I saw and evaluated the patient. I reviewed the resident's note and discussed the case with the resident. I agree with the resident's findings and plan as documented. SUBJECTIVE: OBJECTIVE: ASSESSMENT AND PLAN:
[2019-10-25 14:09] VITALS: BP 114/50; PULSE 82; TEMP 98.7
== END 2019-10-25 13:06 | disposition expired | DRG 207 ==
LOC: JER 18:17 → JERBED 21:06 → J4S 09-24 16:02 → JICU 10-05 23:22
PROVIDERS: ADMIT Internal Medicine; ATTEND Internal Medicine
PROC: 0BH17EZ Insertion of Endotracheal Airway into Trachea, Via Natural or Artificial Opening (ICD-10-PCS; 2019-10-05)
PROC: 5A2204Z Restoration of Cardiac Rhythm, Single (ICD-10-PCS; 2019-10-05)
PROC: 5A1955Z Respiratory Ventilation, Greater than 96 Consecutive Hours (ICD-10-PCS; principal; 2019-10-05 12:00)
PROC: 05HM33Z Insertion of Infusion Device into Right Internal Jugular Vein, Percutaneous Approach (ICD-10-PCS; 2019-10-06)
PROC: B543ZZA Ultrasonography of Right Jugular Veins, Guidance (ICD-10-PCS; 2019-10-06)
PROC: 30233N1 Transfusion of Nonautologous Red Blood Cells into Peripheral Vein, Percutaneous Approach (ICD-10-PCS; 2019-10-11)
PROC: 05HM33Z Insertion of Infusion Device into Right Internal Jugular Vein, Percutaneous Approach (ICD-10-PCS; 2019-10-21)
PROC: B543ZZA Ultrasonography of Right Jugular Veins, Guidance (ICD-10-PCS; 2019-10-21)
DX: J96.01 Acute respiratory failure with hypoxia (principal); U07.1 COVID-19; A41.59 Other Gram-negative sepsis; I50.33 Acute on chronic diastolic (congestive) heart failure; G93.41 Metabolic encephalopathy; J15.0 Pneumonia due to Klebsiella pneumoniae; J69.0 Pneumonitis due to inhalation of food and vomit; J12.89 Other viral pneumonia; I48.92 Unspecified atrial flutter; N17.9 Acute kidney failure, unspecified; I11.0 Hypertensive heart disease with heart failure; I25.10 Atherosclerotic heart disease of native coronary artery without angina pectoris; E78.00 Pure hypercholesterolemia, unspecified; Z95.2 Presence of prosthetic heart valve; I48.0 Paroxysmal atrial fibrillation; Z95.1 Presence of aortocoronary bypass graft; D64.9 Anemia, unspecified; K21.9 Gastro-esophageal reflux disease without esophagitis; D72.829 Elevated white blood cell count, unspecified; I35.0 Nonrheumatic aortic (valve) stenosis; R00.0 Tachycardia, unspecified; F32.9 Major depressive disorder, single episode, unspecified; E78.5 Hyperlipidemia, unspecified
CPT/HCPCS: 36415; 36430; 36600; 71045-TC-FY; 71275-TC; 74018-TC-FY; 80048; 80053; 80076; 81003; 82272; 82308; 82550; 82728; 82803; 82962; 83036; 83615; 83735; 83880; 84100; 84478; 84484; 85025; 85027; 85379; 85384; 85610; 85651; 85730; 86140; 86769; 86850; 86900; 86901; 86922; 87040; 87070; 87077; 87086; 87186; 87205; 87324; 87449; 87633; 87899; 93005; 93010; 94002; 94761; 97116-GP; 97161-GP; 99285-25; G0480; J0131; P9058; Q9967; U0003